=== PATIENT | female | born 1975 | race Caucasian/White ===

== ENCOUNTER 2016-04-21 11:43 | Emergency (ER) | payer OTHER ==
[~2016-04-21] VITALS: Ht 157.5 cm; Wt 111.6 kg
[~2016-04-21 11:43] MED LIST: ARIP15TA; CIPR500T4 PO; CIPR500T78 PO; CYCL10TA9 PO; DESV50TA; DICY20TA57 PO; DIPH1TAB45 PO; GBPN300C; HYDR-1231 PO; HYDR-757 PO; MELO7.5T; METF500T4 PO; METH4TAB PO; NAPR-689 PO; NAPR500T PO; NAPR550T PO; ONDA-42 PO; ONDA8TAB13 PO; ORPH100T PO; PHEN37.555 PO; PRD20T PO; PRED10TA PO; PROPANOLOL; QTP100T; RNT150T PO; RT-ALBUINH IH; SULF1TAB38 PO; TOPI50TA20; TRAM50TA2 PO; TRZ50T; VIVANCE
[2016-04-21] MEDS ORDERED: HYDR-757 PO (12:32)
[2016-04-21] MEDS ORDERED: CYCL10TA9 PO (12:32)
--- NOTE | 2016-04-21 13:23 | ED Back Pain ---
General Chief Complaint: Back Problems Stated Complaint: RIGHT LOWER BACK PAIN Nursing Triage Note: APR 08 SLIPPED AND FELL ON ICY PORCH. TODAY HAD SUDDEN SHARP UP R BACK AND DOWN R LEG WHILE TRYING TO TIE SHOE. Nursing Sepsis Screen: No Definite Risk Source of Information: Patient Exam Limitations: No Limitations History of Present Illness Time Seen by Provider: 13:21 Initial Comments To ER with right sided back pain. This has been going on since 04/08/16. At that time she stepped on her front porch which was icy and slick. Caused her to fall and land on her buttocks. She was evaluated [facility] and given hydrocodone and Flexeril which she has been taking but today she does not have any relief with these. She states that today she bent forward to tie her untied shoe and had a severe shooting pain in the right buttocks going down the right leg and up the right side of her back. No loss of bowel or bladder control. No saddle anesthesia. She does have tingling in the right leg. Location: Lumbar Spine Timing/Duration: Getting Worse, Intermittent Severity: Moderate Pain/Injury Location: Back Radiation: Buttocks Associated Symptoms: denies symptoms Allergies and Home Medications Allergies Coded Allergies: NKANo Known Allergies (Unverified Allergy, Mild, 08/31/08) No Known Drug Allergies (Verified , 01/01/08) Home Medications Cyclobenzaprine HCl 10 Mg Tablet 10 MG PO (Reported) Hydrocodone/Acetaminophen 1 Each Tablet 1 EACH PO (Reported) Constitutional: see HPINo chills, No fever EENTM: see HPI Respiratory: no symptoms reported Cardiovascular: no symptoms reported Genitourinary: no symptoms reported Musculoskeletal: see HPI back pain Skin: no symptoms reported Psychiatric/Neurological: No Symptoms Reported Past Dmmdmiz-Mmbidj-Zxntsq Hx Patient Social History Alcohol Use: Denies Use Recreational Drug Use: No Smoking Status: Never a Smoker Recent Foreign Travel: No Contact w/Someone Who Travel: No Recent Infectious Disease Expo: No Recent Hopitalizations: No Physical Abuse Screen: No Sexual Abuse: No Immunizations Up To Date Date of Influenza Vaccine: Jan 25, 2015 Seasonal Allergies Seasonal Allergies: No Surgeries HX Surgeries: Yes (knee arthoscopy) Surgeries: Appendectomy, Section, Hysterectomy, Orthopedic, Tubal Ligation Respiratory Hx Respiratory Disorders: No Cardiovascular Hx Cardiac Disorders: No Neurological Hx Neurological Disorders: No Reproductive System Hx Reproductive Disorders: Yes (X1 MISCARRIAGE) 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 Genitourinary Hx Genitourinary Disorders: No Gastrointestinal Hx Gastrointestinal Disorders: No Musculoskeletal Hx Musculoskeletal Disorders: No Endocrine Hx Endocrine Disorders: Yes Endocrine Disorders: Diabetes, Non-Insulin dep HEENT HX ENT Disorders: No Cancer Hx Cancer: No Psychosocial Hx Psychiatric Problems: Yes Behavioral Health Disorders: Anxiety Blood Transfusions Hx Blood Disorders: No Family Medical History Significant Family History: No Pertinent Family Hx Physical Exam Vital Signs Vital Sign - Last 12Hours 04/21/16 12:27 Temp 98.1 Pulse 95 Resp 18 B/P 122/75 Pulse Ox 99 Capillary Refill : Less Than 3 Seconds General Appearance: No Apparent Distress WD/WN Obese HEENT: PERRL/EOMI TMs Normal Neck: Full Range of Motion Normal Inspection Respiratory: No Accessory Muscle Use No Respiratory Distress Gastrointestinal: Non Tender Soft Extremity: Normal Capillary Refill Normal Inspection 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: Alert Oriented x3 No Motor/Sensory Deficits Skin: Normal Color Warm/Dry Progress/Results/Core Measures Results/Orders My Orders Orders-JAELYN MORALES APRN Ct Lumbar Spine Wo (04/21/16 12:52) Urine Bedside (04/21/16 12:52) Ketorolac Injection (Toradol Injection) (04/21/16 13:30) Medications Given in ED Current Medications Medications Dose Ordered Sig/Rachelle Route Start Time Stop Time Status Last Admin Dose Admin Ketorolac Tromethamine 60 mg ONCE ONCE IM 04/21/16 13:30 04/21/16 13:31 DC 04/21/16 13:54 60 MG Vital Signs/I&O Vital Sign - Last 12Hours 04/21/16 12:27 Temp 98.1 Pulse 95 Resp 18 B/P 122/75 Pulse Ox 99 Blood Pressure Mean: 91 Diagnostic Imaging Diagonstic Imaging: CT Comments NAME: FLAKO JEREZ [facility] REC#: [id number] PT STATUS: REG ER : 1975 PHYSICIAN: JAELYN MORALES APRN ADMIT DATE: 04/21/16/ER Draft Date of Exam:04/21/16 CT LUMBAR SPINE WO INDICATION: Slipped on icy porch, fell with resultant sharp back pain. COMPARISON: None. TECHNIQUE: Helical non contrast-enhanced images were obtained through the lumbar spine. Sagittal and coronal reformats were also reviewed. FINDINGS: Jig Borer views and reformats demonstrate normal anatomic alignment of the lumbar spine. The visualized vertebral bodies are normal in height and contour. No acute compression fractures are seen. No pars defects are seen. There is no evidence of spondylolysis or spondylolisthesis. There are no large prevertebral or paraspinal masses. Note is made of minimal calcified aortic atherosclerosis at its bifurcation. The disc heights are well maintained. There may be mild posterior disc bulges of the inferior lumbar spine. The axial images demonstrate no disc bulge, herniation, central canal or foraminal stenosis. IMPRESSION: No CT evidence of acute fracture or dislocation of the lumbar spine. Dictated on workstation # [id number] Dict: 04/21/16 1345 Trans: 04/21/16 1421 [facility] [phone] Interpreted by: ALIN DC Electronically signed by: Departure Impression Impression: Primary Impression: Acute low back pain Qualified Code: M54.41 - Lumbago with sciatica, right side Disposition: 01 HOME, SELF-CARE Condition: Stable (ERASED) Departure-Patient Inst. Decision time for Depature: 14:27 Referrals: [facility] (PCP/Family) Primary Care Physician Patient Instructions: Low Back Pain (DC) Add. Discharge Instructions: 1. Add steroids to yorr muscle relaxer and pain medication 2. Rest All discharge instructions reviewed with patient and/or family. Voiced understanding. Scripts Prednisone 20 Mg Tab40 Mg PO DAILY #8 TAB Prov:JEALYN MORALES APRN 04/21/16 JAELYN MORALES APRN Apr 21, 2016 13:23
[2016-04-21] MEDS ORDERED: KETOROLAC 60 MG/2 ML VIAL IM ONE (13:30)
--- NOTE | 2016-04-21 14:22 | Diagnostic Imaging Report ---
INDICATION: Slipped on icy porch, fell with resultant sharp back pain. COMPARISON: None. TECHNIQUE: Helical non contrast-enhanced images were obtained through the lumbar spine. Sagittal and coronal reformats were also reviewed. FINDINGS: Uke Driver views and reformats demonstrate normal anatomic alignment of the lumbar spine. The visualized vertebral bodies are normal in height and contour. No acute compression fractures are seen. No pars defects are seen. There is no evidence of spondylolysis or spondylolisthesis. There are no large prevertebral or paraspinal masses. Note is made of minimal calcified aortic atherosclerosis at its bifurcation. The disc heights are well maintained. There may be mild posterior disc bulges of the inferior lumbar spine. The axial images demonstrate no disc bulge, herniation, central canal or foraminal stenosis. IMPRESSION: No CT evidence of acute fracture or dislocation of the lumbar spine. Dictated by: Dictated on workstation # [id number]
[2016-04-21] MEDS ORDERED: PRD20T PO (14:28)
[2016-04-21 14:50] VITALS: BP 124/81
[2016-07-28] MEDS ORDERED: HYDR-3816 PO (12:08)
[2016-07-28] MEDS ORDERED: IBUP-1773 PO (12:08)
== END 2016-04-21 14:50 | disposition home or self-care (01) ==
LOC: EDUNIT# 11:43 → ER 11:45
DX: M54.41 Lumbago with sciatica, right side (principal); E11.9 Type 2 diabetes mellitus without complications
CPT/HCPCS: 72131; 96372

== ENCOUNTER → 2016-07-21 | Outpatient (CLI) | payer OTHER ==
[~2016-07-21] MED LIST changes: +CATHETER FLUSH 10 ML SYR IV PRN; +DOXY100T2 PO; +HYDR-3816 PO; +IBUP-1773 PO; +IOHEXOL 350 MG/ML 100 ML (OMNIPAQUE 350) VIAL IV ONE; +NS 100 ML (IVPB) BAG IV ONE; +ONDA4TAB8 SL; +OXYC-197 PO
--- NOTE | 2016-07-21 15:12 | Diagnostic Imaging Report ---
PROCEDURE: CT abdomen and pelvis with contrast. TECHNIQUE: Multiple contiguous axial images were obtained through the abdomen and pelvis after administration of intravenous contrast. INDICATION: Left lower quadrant pain. 100 mL of Omnipaque 350 is administered intravenously. FINDINGS: There is a cystic mass in the left adnexa measuring 8.8 x 6.5 x 8.1 cm. This compares to 5 x 3.8 cm on 03/02/2015 exam. There appears to be predominantly cystic with minimally thickened septations in its inferior aspect. No definitive solid nodule is identified. The persistent enlargement from 03/02/2015 is suggestive of an ovarian neoplasm, favored to be benign or low-grade malignant. Gynecologic consultation and correlation with ultrasound is recommended. There is no lymphadenopathy in the pelvis. No paraaortic significantly enlarged lymph node is seen. There is no free fluid or fluid collection noted in the abdomen or pelvis. There is suggestion of prior hysterectomy. The lung bases appear clear. The liver, the gallbladder, the spleen, the pancreas and the adrenal glands appear unremarkable. The kidneys have symmetric enhancement and contrast excretion. There is no hydronephrosis. There is surgical suture in the right lower quadrant, could relate to prior appendectomy. Correlate with surgical history. There is a tiny fat-containing umbilical hernia. The osseous structures appear grossly unremarkable. 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 Dr. Villalba is called and informed of the findings at 9:30 AM, on 07/22/16. Dictated by: Dictated on workstation # [id number]
== END ==
LOC: RAD 13:36
PROVIDERS: ATTEND Surgery Pediatric Surgery
DX: R10.11 Right upper quadrant pain (principal); R10.32 Left lower quadrant pain
CPT/HCPCS: 74177

== ENCOUNTER → 2016-07-22 | Outpatient (CLI) | payer OTHER ==
[~2016-07-22] MED LIST changes: -IOHEXOL 350 MG/ML 100 ML (OMNIPAQUE 350) VIAL IV ONE; -NS 100 ML (IVPB) BAG IV ONE
--- NOTE | 2016-07-22 12:17 | Diagnostic Imaging Report ---
EXAMINATION: HIDA with EF measurements Indication: Abdominal pain TECHNIQUE: After the intravenous administration of 5.2 mCi of Tc 99m Choletec, imaging over the abdomen was obtained. This was followed by administration of Ensure orally to stimulate intrinsic CCK secretion, followed by continued imaging with ejection fraction measured. FINDINGS: There is homogeneous uptake in the liver with prompt bile duct and gallbladder filling seen. Bowel activity is seen at 60 minutes. Based on further imaging and gallbladder area of interest activity measurements after the administration of Ensure, the gallbladder ejection fraction is estimated at 56%. IMPRESSION: 1. Normal hepatobiliary uptake and Gallbladder filling. 2. The gallbladder ejection fraction is at the lower limits of normal. Dictated by: Dictated on workstation # [id number]
== END ==
LOC: CARD 08:52
PROVIDERS: ATTEND Surgery Pediatric Surgery
DX: R10.31 Right lower quadrant pain (principal); R10.32 Left lower quadrant pain
CPT/HCPCS: 78227

== ENCOUNTER 2016-07-24 13:53 | Emergency (ER) | payer OTHER ==
[~2016-07-24] VITALS: Ht 170.2 cm; Wt 113.4 kg
[~2016-07-24 13:53] MED LIST changes: -CATHETER FLUSH 10 ML SYR IV PRN; -DOXY100T2 PO; -HYDR-3816 PO; -IBUP-1773 PO; -ONDA4TAB8 SL; -OXYC-197 PO
--- NOTE | 2016-07-24 14:58 | ED Abdominal Pain ---
General Chief Complaint: Back Problems Stated Complaint: GALBLADDER/BACK PAIN Nursing Triage Note: Pt. advised she had a hida scan and a ct scan done earlier this week secondary to abdominal and flank pain. Sepsis Screen: No Definite Risk Source of Information: Patient, Old Records Exam Limitations: No Limitations History of Present Illness Time Seen By Provider: 14:30 Initial Comments This 40-year-old woman presents to the emergency room with complaints of worsening abdominal pain with associated nausea and some diarrhea. She vomited a couple days ago and is still nauseated now. She is presently under workup for a complex left ovarian cyst and right upper quadrant pain. She has had a recent imaging including a hepatobiliary scan and a CT of the abdomen and pelvis. The hepatobiliary scan was normal but ejection fraction had decreased from prior. She has seen Dr. Villalba who has also referred her to Dr. VENTURA. She has an appointment with Dr. VENTURA on Monday. It is her understanding that she needs the cystic mass removed for further evaluation. She communicates that a possible concurrent cholecystectomy is being considered. She reports that her pain has been worsening especially in the right upper quadrant and radiating around to the right back. She denies any fever. Vital signs are stable. Chart has been reviewed including the reports from prior imaging going back to 2014. Allergies and Home Medications Allergies Coded Allergies: NKANo Known Allergies (Unverified Allergy, Mild, 07/24/16) No Known Drug Allergies (Verified , 01/01/08) Home Medications Cyclobenzaprine HCl 10 Mg Tablet, 10 MG PO, (Reported) Hydrocodone/Acetaminophen 1 Each Tablet, 1 EACH PO, (Reported) Ondansetron 4 Mg Tab.rapdis, 4 MG SL Q4H PRN for NAUSEA/VOMITING-1ST LINE, #10 Ref 1 Prescribed by: NINO SUMNER on 07/24/16 1748 Oxycodone HCl/Acetaminophen 1 Each Tablet, 1 EACH PO Q4H PRN for PAIN-MILD TO MODERATE, #20 Prescribed by: NINO SUMNER on 07/24/16 1748 Prednisone 20 Mg Tab, 40 MG PO DAILY, #8 Prescribed by: JAELYN MORALES on 04/21/16 1428 Review of Systems Constitutional: no symptoms reported EENTM: No Symptoms Reported Respiratory: No Symptoms Reported Cardiovascular: No Symptoms Reported Gastrointestinal: See HPI Genitourinary: No Symptoms Reported Musculoskeletal: no symptoms reported Skin: no symptoms reported Psychiatric/Neurological: No Symptoms Reported Endocrine: No Symptoms Reported Hematologic/Lymphatic: No Symptoms Reported Past Cdiwqda-Fghlct-Qertem Hx Patient Social History Alcohol Use: Denies Use Recreational Drug Use: No Smoking Status: Never a Smoker Recent Foreign Travel: No Contact w/Someone Who Travel: No Recent Infectious Disease Expo: No Recent Hopitalizations: No Immunizations Up To Date Date of Influenza Vaccine: Jan 25, 2015 Seasonal Allergies Seasonal Allergies: No Surgeries HX Surgeries: Yes (knee arthoscopy) Surgeries: Appendectomy, Section, Hysterectomy (sparing the left ovary ), Orthopedic, Tubal Ligation Respiratory Hx Respiratory Disorders: No Cardiovascular Hx Cardiac Disorders: No Neurological Hx Neurological Disorders: No Reproductive System Hx Reproductive Disorders: Yes (X1 MISCARRIAGE, 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 mass) 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 Genitourinary Hx Genitourinary Disorders: No Gastrointestinal Hx Gastrointestinal Disorders: No Musculoskeletal Hx Musculoskeletal Disorders: No Endocrine Hx Endocrine Disorders: Yes Endocrine Disorders: Diabetes, Non-Insulin dep HEENT HX ENT Disorders: No Cancer Hx Cancer: No Psychosocial Hx Psychiatric Problems: Yes Behavioral Health Disorders: Anxiety Blood Transfusions Hx Blood Disorders: No Family Medical History Significant Family History: No Pertinent Family Hx Physical Exam Vital Signs VS - Last 72 Hours, by Label 07/24/16 07/24/16 14:18 17:54 Temp 99.0 Pulse 86 75 Resp 14 14 B/P (MAP) 104/64 Pulse Ox 98 98 O2 Delivery Room Air Capillary Refill : Less Than 3 Seconds General Appearance: WD/WN, no apparent distress HEENT: PERRL/EOMI, normal ENT inspection, pharynx normal Neck: normal inspection Respiratory: lungs clear, normal breath sounds, no respiratory distress, no accessory muscle use Cardiovascular: regular rate, rhythm, no edema, no murmur Gastrointestinal: normal bowel sounds, soft, no organomegaly, tenderness ( right upper quadrant moderate tenderness, left lower quadrant mild tenderness) Extremities: normal inspection, no pedal edema 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, no motor/sensory deficits, alert, normal mood/affect, oriented x 3 Skin: normal color, warm/dry Progress/Results/Core Measures Results/Orders Lab Results Laboratory Tests Test 07/24/16 14:10 07/24/16 15:27 Range/Units White Blood Count 8.6 4.3-11.0 10^3/uL Red Blood Count 5.10 4.35-5.85 10^6/uL Hemoglobin 14.0 11.5-16.0 G/DL Hematocrit 42 35-52 % Mean Corpuscular Volume 83 80-99 FL Mean Corpuscular Hemoglobin 28 25-34 PG Mean Corpuscular Hemoglobin Concent 33 32-36 G/DL Red Cell Distribution Width 14.3 10.0-14.5 % Platelet Count 328 130-400 10^3/uL Mean Platelet Volume 9.9 7.4-10.4 FL Neutrophils (%) (Auto) 59 42-75 % Lymphocytes (%) (Auto) 30 12-44 % Monocytes (%) (Auto) 6 0-12 % Eosinophils (%) (Auto) 4 0-10 % Basophils (%) (Auto) 1 0-10 % Neutrophils # (Auto) 5.1 1.8-7.8 X 10^3 Lymphocytes # (Auto) 2.5 1.0-4.0 X 10^3 Monocytes # (Auto) 0.5 0.0-1.0 X 10^3 Eosinophils # (Auto) 0.4 H 0.0-0.3 10^3/uL Basophils # (Auto) 0.1 0.0-0.1 10^3/uL Prothrombin Time 13.3 12.2-14.7 SEC INR Comment 1.0 0.8-1.4 Activated Partial Thromboplast Time 29 24-35 SEC Sodium Level 140 135-145 MMOL/L Potassium Level 3.4 L 3.6-5.0 MMOL/L Chloride Level 106 98-107 MMOL/L Carbon Dioxide Level 24 21-32 MMOL/L Anion Gap 10 5-14 MMOL/L Blood Urea Nitrogen 10 7-18 MG/DL Creatinine 0.81 0.60-1.30 MG/DL Estimat Glomerular Filtration Rate > 60 BUN/Creatinine Ratio 12 Glucose Level 88 70-105 MG/DL Calcium Level 9.2 8.5-10.1 MG/DL Total Bilirubin 0.4 0.1-1.0 MG/DL Aspartate Amino Transf (AST/SGOT) 18 5-34 U/L Alanine Aminotransferase (ALT/SGPT) 13 0-55 U/L Alkaline Phosphatase 57 40-136 U/L Total Protein 8.2 6.4-8.2 G/DL Albumin 4.3 3.2-4.5 G/DL Lipase 44 8-78 U/L Serum Test, Qualitative NEGATIVE NEGATIVE Urine Color YELLOW Urine Clarity CLEAR Urine pH 5 5-9 Urine Specific [place] 1.025 H 1.016-1.022 Urine Protein NEGATIVE NEGATIVE Urine Glucose (UA) NEGATIVE NEGATIVE Urine Ketones NEGATIVE NEGATIVE Urine Nitrite NEGATIVE NEGATIVE Urine Bilirubin NEGATIVE NEGATIVE Urine Urobilinogen NORMAL NORMAL MG/DL Urine Leukocyte Esterase NEGATIVE NEGATIVE Urine RBC (Auto) NEGATIVE NEGATIVE Urine RBC NONE /HPF Urine WBC 2-5 /HPF Urine Squamous Epithelial Cells 0-2 /HPF Urine Crystals PRESENT H /LPF Urine Bacteria FEW H /HPF Urine Casts NONE /LPF Urine Hyaline Casts 0-2 H /LPF Urine Mucus MODERATE H /LPF Urine Culture Indicated YES My Orders Orders - NINO WINKLER MD Saline Lock/Iv-Start (07/24/16 14:53) Cbc With Automated Diff (07/24/16 14:53) Comprehensive Metabolic Panel (07/24/16 14:53) Hcg,Qualitative Serum (07/24/16 14:53) Lipase (07/24/16 14:53) Ua Culture If Indicated (07/24/16 14:53) Chest Pa/Lat (2 View) (07/24/16 14:53) Abdomen, Flat & Upright/Decub (07/24/16 14:53) Us Gallbladder [id number] (07/24/16 14:53) Fentanyl Injection (Sublimaze Injection (07/24/16 15:00) Ondansetron Injection (Zofran Injectio (07/24/16 15:00) Protime With Inr (07/24/16 14:59) Partial Thromboplastin Time (07/24/16 14:59) Urine Culture (07/24/16 15:27) Us Non Ob Pelvis Comp/Transvag (07/24/16 14:53) Ketorolac Injection (Toradol Injection) (07/24/16 17:00) Oxycodone/Apap 5/325mg Tablet (Percocet (07/24/16 17:45) Rx-Oxycodone/Apap 5-325 Mg (Rx-Percocet (07/24/16 17:45) Rx-Ondansetron Po (Rx-Zofran Po) (07/24/16 17:43) Medications Given in ED Current Medications Medications Dose Ordered Sig/Rachelle Route Start Time Stop Time Status Last Admin Dose Admin Fentanyl Citrate 75 mcg ONCE ONCE IVP 07/24/16 15:00 07/24/16 15:01 DC 07/24/16 15:19 75 MCG Ketorolac Tromethamine 30 mg ONCE ONCE IVP 07/24/16 17:00 07/24/16 17:01 DC 07/24/16 17:10 30 MG Ondansetron HCl 4 mg ONCE ONCE IVP 07/24/16 15:00 07/24/16 15:01 DC 07/24/16 15:18 4 MG Oxycodone/ Acetaminophen 1 ea Q4H PRN PO 07/24/16 17:45 07/24/16 18:01 DC 07/24/16 17:56 1 EA Oxycodone/ Acetaminophen 1 tab ONCE ONCE PO 07/24/16 17:45 07/24/16 17:46 DC 07/24/16 17:53 1 TAB Vital Signs/I&O Vital Sign - Last 12Hours 07/24/16 07/24/16 14:18 17:54 Temp 99.0 Pulse 86 75 Resp 14 14 B/P (MAP) 104/64 Pulse Ox 98 98 O2 Delivery Room Air Blood Pressure Mean: 77 Progress Note #1: Progress Note Patient was treated with fentanyl and Zofran. Further evaluation with labs and x-ray was pursued. X-ray of the chest was included as her pain is around the costal margin and a little worse with inspiration. Progress Note #2: Progress Note X-rays showed no acute pathology. Labs were relatively unremarkable. Patient did require repeat dosing of pain medication and nausea medication. Toradol seemed to help more than fentanyl. Case was reviewed with Dr. VENTURA who confirms patient is to be seen on Monday and stresses the importance of keeping that appointment. Patient was advised of this importance. A take-home pack of Percocet and Zofran was dispensed. A dose of Percocet was given just prior to dismissal. Diagnostic Imaging Diagonstic Imaging: Xray Plain Films/CT/US/NM/MRI: chest Comments Chest x-ray viewed by me and report reviewed. See report below: NAME: FLAKO JEREZ [facility] REC#: [id number] PT STATUS: REG ER : 1975 PHYSICIAN: NINO WINKLER MD ADMIT DATE: 07/24/16/ER Draft Date of Exam:07/24/16 CHEST PA/LAT (2 VIEW) INDICATION: Abdomen pain with nausea and vomiting. Comparison with 03/08/2016. FINDINGS: Examination of the chest in the PA and lateral projections fails to reveal evidence of active parenchymal pathology or pleural effusion. The cardiac silhouette is normal. IMPRESSION: 1. Negative chest. 2. No changes since previous exam. Dictated on workstation # [id number] Dict: 07/24/16 1511 Trans: 07/24/16 1514 LAURIE [id number] Interpreted by: MARYLU SERRANO MD Diagonstic Imaging: Xray Plain Films/CT/US/NM/MRI: abdomen, pelvis Comments Abdomen and pelvis x-rays viewed by me and report reviewed. See report below: NAME: FLAKO JEREZ [facility] REC#: [id number] PT STATUS: REG ER : 1975 PHYSICIAN: NINO WINKLER MD ADMIT DATE: 07/24/16/ER Draft Date of Exam:07/24/16 ABDOMEN, FLAT UPRIGHT/DECUB INDICATION: Left-sided abdominal pain. FINDINGS: Lung bases are clear. No free air under the diaphragm. Scattered gas throughout the small bowel and colon with some stool in the colon in a normal fashion with no evidence of constipation or obstruction. Surgical clips noted in the pelvis. No pathologic calcification or organomegaly. IMPRESSION: Normal abdomen series. Dictated on workstation # [id number] Dict: 07/24/16 1511 Trans: 07/24/16 1515 LAURIE [id number] Interpreted by: MARYLU SERRANO MD Departure Impression Impression: Primary Impression: Complex ovarian cyst Additional Impressions: Right upper quadrant pain Nausea and vomiting Qualified Codes: R11.2 - Nausea with vomiting, unspecified Disposition: 01 HOME, SELF-CARE Condition: Improved Departure-Patient Inst. Decision time for Depature: 17:44 Referrals: [facility] (PCP) Primary Care Physician SARAHI ERVIN APRN (Family) Primary Care Physician Patient Instructions: Acute Abdomen (Belly Pain) Add. Discharge Instructions: You may take Percocet every 4 hours as prescribed. You may add ibuprofen up to 800 mg every 8 hours as needed for additional pain relief, but stop ibuprofen after Monday in anticipation of surgery later this week. Dissolve Zofran ( ondansetron) under the tongue every 4 hours as needed for nausea and vomiting. Be sure to keep your appointment with Dr. VENTURA on Monday. You may be able to have surgery on if still in pain at your Monday appointment. Return to emergency room if symptoms worsen, especially if you develop fevers greater than 100. Consume primarily a clear liquid diet and a diet low in fats and oils. All discharge instructions reviewed with patient and/or family. Voiced understanding. Scripts Ondansetron (Zofran Odt) 4 Mg Tab.rapdis 4 MG SL Q4H Y for NAUSEA/VOMITING-1ST LINE, #10 TAB 1 Refill Prov: NINO WINKLER MD 07/24/16 Oxycodone HCl/Acetaminophen (Percocet 5-325 mg Tablet) 1 Each Tablet 1 EACH PO Q4H Y for PAIN-MILD TO MODERATE, #20 TAB Prov: NINO WINKLER MD 07/24/16 Copy Copies To 1: WATSON VILLALBA MD Copies To 2: HERSON VENTURA DO; DAVY LINTON MD, JOSHUA T MD Jul 24, 2016 14:58
[2016-07-24] MEDS ORDERED: ONDANSETRON 4 MG/2 ML (SDV) Z0FRAN IVP ONE (15:00)
[2016-07-24] MEDS ORDERED: fentaNYL INJECTION 100 MCG/2 ML AMP IVP ONE (15:00)
[2016-07-24 15:07] LABS: BASOPHILS # (AUTO) 0.1 10^3/uL (0.0-0.1); BASOPHILS % (AUTO) 1 % (0-10); EOSINOPHILS # (AUTO) 0.4 10^3/uL (0.0-0.3); EOSINOPHILS % (AUTO) 4 % (0-10); LYMPHOCYTES # (AUTO) 2.5 X 10^3 (1.0-4.0); LYMPHOCYTES % (AUTO) 30 % (12-44); MEAN CORPUSCULAR HEMOGLOBIN 28 PG (25-34); MEAN CORPUSCULAR HGB CONC 33 G/DL (32-36); MEAN CORPUSCULAR VOLUME 83 FL (80-99); MEAN PLATELET VOLUME 9.9 FL (7.4-10.4); MONOCYTES # (AUTO) 0.5 X 10^3 (0.0-1.0); MONOCYTES % (AUTO) 6 % (0-12); NEUTROPHILS # (AUTO) 5.1 X 10^3 (1.8-7.8); NEUTROPHILS % (AUTO) 59 % (42-75); PLATELET COUNT 328 10^3/uL (130-400); RED CELL DISTRIBUTION WIDTH 14.3 % (10.0-14.5); WHITE BLOOD COUNT 8.6 10^3/uL (4.3-11.0)
[2016-07-24 15:10] LABS: PROTHROMBIN TIME PATIENT 13.3 SEC (12.2-14.7)
--- NOTE | 2016-07-24 15:14 | Diagnostic Imaging Report ---
INDICATION: Abdomen pain with nausea and vomiting. Comparison with 03/08/2016. FINDINGS: Examination of the chest in the PA and lateral projections fails to reveal evidence of active parenchymal pathology or pleural effusion. The cardiac silhouette is normal. IMPRESSION: 1. Negative chest. 2. No changes since previous exam. Dictated by: Dictated on workstation # [id number]
--- NOTE | 2016-07-24 15:15 | Diagnostic Imaging Report ---
INDICATION: Left-sided abdominal pain. FINDINGS: Lung bases are clear. No free air under the diaphragm. Scattered gas throughout the small bowel and colon with some stool in the colon in a normal fashion with no evidence of constipation or obstruction. Surgical clips noted in the pelvis. No pathologic calcification or organomegaly. IMPRESSION: Normal abdomen series. Dictated by: Dictated on workstation # [id number]
[2016-07-24 15:19] LABS: ALANINE AMINOTRANSFERASE 13 U/L (0-55); ALBUMIN 4.3 G/DL (3.2-4.5); ANION GAP 10 MMOL/L (5-14); ASPARTATE AMINO TRANSFERASE 18 U/L (5-34); BILIRUBIN,TOTAL 0.4 MG/DL (0.1-1.0); BLOOD UREA NITROGEN 10 MG/DL (7-18); BUN/CREATININE RATIO 12; CALCIUM 9.2 MG/DL (8.5-10.1); CARBON DIOXIDE 24 MMOL/L (21-32); CHLORIDE 106 MMOL/L (98-107); CREATININE SERUM 0.81 MG/DL (0.60-1.30); GFR ESTIMATED > 60; GLUCOSE 88 MG/DL (70-105); LIPASE 44 U/L (8-78); POTASSIUM 3.4 MMOL/L (3.6-5.0); SODIUM 140 MMOL/L (135-145); TOTAL PROTEIN 8.2 G/DL (6.4-8.2)
[2016-07-24 15:35] LABS: BILIRUBIN,URINE NEGATIVE (NEGATIVE); KETONES,URINE NEGATIVE (NEGATIVE); LEUKOCYTE ESTERASE ,URINE NEGATIVE (NEGATIVE); NITRITE,URINE NEGATIVE (NEGATIVE); PH,URINE 5 (5-9); PROTEIN,URINE NEGATIVE (NEGATIVE); UROBILINOGEN,URINE NORMAL (NORMAL)
[2016-07-24 16:04] LABS: HYALINE CASTS, URINE 0-2 /LPF; SQUAMOUS EPITHELIAL CELL,UR 0-2 /HPF
--- NOTE | 2016-07-24 16:21 | Diagnostic Imaging Report ---
PROCEDURE: US gallbladder. TECHNIQUE: Multiple real-time grayscale images were obtained over the right upper quadrant in various projections. INDICATION: Abdominal pain. COMPARISON: None. FINDINGS: Liver appears unremarkable. The common bile duct is not well seen, however, no gross biliary dilatation is seen. The common bile duct appears to measure about 5 mm. The gallbladder appears normal. The pancreas is not well visualized. Right kidney measures 12 cm in length and appears normal. There is no ascites or sonographic Main sign. IMPRESSION: No acute abnormality is demonstrated. Limited visualization of the common bile duct and pancreas. Dictated by: Dictated on workstation # [id number]
--- NOTE | 2016-07-24 16:25 | Diagnostic Imaging Report ---
INDICATION: Abdominal pelvic pain. History of hysterectomy and right oophorectomy. PROCEDURE: Grayscale as well as spectral Doppler ultrasound of the pelvis was performed both transabdominally and endovaginally. FINDINGS: The uterus and right ovary appear absent. There is a 6.0 cm x 7.7 cm x 8.0 cm complex cystic mass in the left adnexa with diffuse low level internal echoes and mildly thickened septations present. There is no significant internal vascularity. This may represent a benign process such as a complex hemorrhagic cyst although tubo-ovarian abscess or less likely cystic neoplasm could also potentially have this appearance. No definite normal left ovarian tissue is demonstrated. There is no free fluid. IMPRESSION: There is an 8 cm complex cystic mass in the left adnexa, as described above. No discrete normal left ovarian tissue is seen. Considerations would include a benign cystic lesion of the left ovary such as a hemorrhagic cyst, tubo-ovarian abscess/infection or less likely but not entirely excluded cystic neoplasm. At minimum, short-term followup study is suggested. Correlate clinically. Dictated by: Dictated on workstation # [id number]
[2016-07-24] MEDS ORDERED: KETOROLAC 30 MG/ML VIAL IVP ONE (17:00)
[2016-07-24] MEDS ORDERED: RX-ONDANSETRON 4 MG ODT (ZOFRAN) PPK #4 SL STA (17:43)
[2016-07-24] MEDS ORDERED: oxyCODONE/APAP 5/325MG (PERCOCET 5) TABLET PO ONE (17:45)
[2016-07-24] MEDS ORDERED: OXYC-197 PO (17:48)
[2016-07-24] MEDS ORDERED: ONDA4TAB8 SL (17:48)
[2016-07-24] MEDS: RX-OXYCODONE/APAP 5-325 MG #4 TAB PK PO PRN ×2 (17:50→17:56)
[2016-07-24 17:54] VITALS: BP 128/95
[2016-07-28] MEDS ORDERED: IBUP-1773 PO (12:08)
[2016-07-28] MEDS ORDERED: HYDR-3816 PO (12:08)
== END 2016-07-24 18:01 | disposition home or self-care (01) ==
LOC: EDUNIT# 13:53 → ER 13:54
DX: R10.11 Right upper quadrant pain (principal); R11.2 Nausea with vomiting, unspecified; N83.292 Other ovarian cyst, left side; E11.9 Type 2 diabetes mellitus without complications
CPT/HCPCS: 36415; 71020; 74020; 76705; 76830; 76856; 80053; 81000; 83690; 84703; 85025; 85610; 85730; 87088; 96374; 96375

== ENCOUNTER 2016-07-28 09:16 | Day surgery (SDC) | payer OTHER ==
[~2016-07-28] VITALS: Ht 157.5 cm; Wt 108.4 kg
[~2016-07-28 09:16] MED LIST changes: +ONDA4TAB8 SL; +OXYC-197 PO
[2016-07-28] MEDS ORDERED: ceFAZolin 1 GM/NS 50 ML IVPB IV ONE ×2 (09:45)
[2016-07-28] MEDS ORDERED: fentaNYL INJECTION 100 MCG/2 ML AMP IV ONE (09:45)
[2016-07-28] MEDS: LACTATED RINGERS 1,000 ML IV PRN ×2 (10:07→11:16)
[2016-07-28] MEDS ORDERED: ONDANSETRON 4 MG/2 ML (SDV) Z0FRAN ONE ×2 (10:23→13:12)
[2016-07-28] MEDS ORDERED: fentaNYL INJECTION 100 MCG/2 ML AMP ONE ×2 (10:23→13:12)
[2016-07-28] MEDS ORDERED: LIDOCAINE PF 2% 10 ML (XYLOCAINE) AMP ONE (10:23)
[2016-07-28] MEDS ORDERED: DEXAMETHASONE PF 10 MG/ML (DECADRON) VIAL ONE (10:23)
[2016-07-28] MEDS ORDERED: LACTATED RINGERS 1,000 ML IV ONE ×2 (10:23→12:26)
[2016-07-28] MEDS ORDERED: proPOfol 200 MG/20 ML (DIPRIVAN) VIAL IV ONE (10:23)
[2016-07-28] MEDS ORDERED: SEVOFLURANE (ULTANE) 15 ML INHAL SOLN ONE ×6 (10:23→12:28)
[2016-07-28] MEDS ORDERED: MIDAZOLAM 2 MG/2 ML (VERSED) VIAL ONE (10:24)
[2016-07-28 10:33] LABS: BASOPHILS % (AUTO) 0 % (0-10); EOSINOPHILS # (AUTO) 0.2 10^3/uL (0.0-0.3); EOSINOPHILS % (AUTO) 3 % (0-10); LYMPHOCYTES # (AUTO) 2.2 X 10^3 (1.0-4.0); LYMPHOCYTES % (AUTO) 31 % (12-44); MEAN CORPUSCULAR HEMOGLOBIN 27 PG (25-34); MEAN CORPUSCULAR HGB CONC 33 G/DL (32-36); MEAN CORPUSCULAR VOLUME 82 FL (80-99); MEAN PLATELET VOLUME 9.5 FL (7.4-10.4); MONOCYTES # (AUTO) 0.4 X 10^3 (0.0-1.0); MONOCYTES % (AUTO) 6 % (0-12); NEUTROPHILS # (AUTO) 4.2 X 10^3 (1.8-7.8); NEUTROPHILS % (AUTO) 59 % (42-75); PLATELET COUNT 285 10^3/uL (130-400); RED BLOOD COUNT 4.67 10^6/uL (4.35-5.85); RED CELL DISTRIBUTION WIDTH 14.4 % (10.0-14.5); WHITE BLOOD COUNT 7.1 10^3/uL (4.3-11.0)
[2016-07-28] MEDS ORDERED: BUPIVACAINE 0.25% 30 ML (SENSORCAINE) VIAL ONE (10:42)
--- NOTE | 2016-07-28 10:47 | Progress Note-Pre Operative ---
Pre-Operative Progress Note H&P Reviewed The H&P was reviewed, patient examined and no changes noted. Date H&P Reviewed: July 28, 2016 Time H&P Reviewed: 10:45 Pre-Operative Diagnosis: symptomatic biliary dyskinesia WATSON PAINTER MD July 28, 2016 10:47 am
[2016-07-28 10:53] VITALS: BP 122/62
[2016-07-28] MEDS ORDERED: ROCURONIUM 50 MG/5 ML (ZEMURON) VIAL IV ONE ×2 (12:00)
[2016-07-28] MEDS ORDERED: D5 LR IV SOLUTION 1,000 ML IV SCH (12:03)
--- NOTE | 2016-07-28 12:06 | Discharge Inst-Women's Service ---
Discharge Inst-Women's Serv Depart Medication/Instructions New, Converted or Re-Newed RX: RX on Chart Consults/Follow Up Additional Follow Up: Yes Activity Activity: Activity as Tolerated Driving Instructions: No Driving for 1 Week NO SMOKING: NO SMOKING Nothing Inside Vagina: No Douching, No [place], No Tampons Diet Discharge Diet: No Restrictions Symptoms to Report to : Bleeding Excessive, Pain Increased, Fever Over 101 Degrees F, Vaginal Bleeding Increase, Questions/Concerns For Any Problems or Questions: Contact Your Physician, Go to Emergency Room Skin/Wound Care Infection Signs and Symptoms: Increased Redness, Foul Odor of Wound, Increased Drainage, Skin Itchy or Has a Rash, Increased Swelling, Temperature Above 101 F Operative Area Clean and Dry: Keep Incision Clean/Dry Stitches/[place]/Dermabond: Dermabond, Care of Stitches Bathing Instructions: HERSON Flores DO July 28, 2016 12:06
[2016-07-28] MEDS ORDERED: HYDR-3816 PO (12:08)
[2016-07-28] MEDS ORDERED: IBUP-1773 PO (12:08)
[2016-07-28] MEDS ORDERED: ONDANSETRON 4 MG/2 ML (SDV) Z0FRAN IVP PRN ×2 (12:15→12:45)
[2016-07-28] MEDS ORDERED: KETOROLAC 30 MG/ML VIAL IVP ONE (12:15)
--- NOTE | 2016-07-28 12:31 | Progress Note-Post Operative ---
Post-Operative Progess Note Surgeon (s)/Boiler Inspector (s) Surgeon WATSON PAINTER MD Boiler Inspector: same Pre-Operative Diagnosis symptomatic biliary dyskinesia Post-Operative Diagnosis same Post-Op Procedure Note Date of Procedure: July 28, 2016 Name of Procedure Performed: laparoscopic cholecystectomy Description of the Procedure: laparoscopic cholecystectomy Findings of the Procedure chronic gallbladder inflammation Anesthesia Type GET Estimated blood loss (mL): minimal Specimen(s) collected/removed gallbladder WATSON PAINTER MD July 28, 2016 12:31 pm
[2016-07-28] MEDS ORDERED: GLYCOPYRROLATE 0.2 MG/ML (ROBINUL) 2 ML VIAL ONE (12:33)
[2016-07-28] MEDS ORDERED: NEOSTIGMINE (BLOXIVERZ ) 1 MG/1ML 10 ML VIAL ONE (12:33)
[2016-07-28] MEDS ORDERED: fentaNYL INJECTION 100 MCG/2 ML AMP IVP PRN (12:45)
[2016-07-28] MEDS ORDERED: morphine INJ 10 MG/ML 1ML (SYR OR VIAL) ONE (12:53)
[2016-07-28] MEDS ORDERED: KETOROLAC 30 MG/ML VIAL ONE (12:53)
[2016-07-28] MEDS: morphine INJ 10 MG/ML 1ML (SYR OR VIAL) IVP PRN ×2 (13:05→13:13)
[2016-07-28 13:40] VITALS: BP 120/60
[2016-07-28] MEDS: HYDROcodone/APAP 7.5 MG/325 MG (LORTAB, LORCET PLUS) TABLET PO PRN ×2 (13:48→15:06)
[2016-07-28 14:10] VITALS: BP 107/67
[2016-07-28 14:40] VITALS: BP 106/70
[2016-07-28 16:00] VITALS: BP 106/70
[2016-07-28] MEDS ORDERED: IBUPROFEN 600 MG (MOTRIN) TAB PO PRN (18:00)
--- NOTE | 2016-07-29 04:49 | OPERATIVE REPORT ---
DATE OF SERVICE: PREOPERATIVE DIAGNOSIS: Left adnexal cystic mass. POSTOPERATIVE DIAGNOSIS: Left adnexal cystic mass. PROCEDURE: 1. Diagnostic laparoscopy with removal of the left tube and ovary and mass. 2. Laparoscopic cholecystectomy. SURGEON: Dr. Aris Ventura. CO-SURGEON: Dr. Tex Villalba. ANESTHESIA: General endotracheal. ESTIMATED BLOOD LOSS: Minimal. URINE OUTPUT: Recorded on Dr. Villalba's note. FLUIDS: Recorded on Dr. Villalba's note. PATHOLOGY SENT (from my portion of the procedure): Includes the left-sided ovarian cystic mass and left ovary. FINDINGS: A 6 to 8 cm left ovarian cystic mass, grossly normal-appearing, healing pelvis otherwise with absence of uterus, bilateral fallopian tubes and right ovary. INDICATIONS FOR PROCEDURE: This is 40-year-old female was made an urgent appointment in my office yesterday for severe left lower quadrant pain in the pelvis. She had a CT performed over the weekend in the emergency department which revealed a 6 x 8 cm cystic-appearing structure in the pelvis. She also had recently seen Dr. Villalba, who wanted this evaluated first before proceeding with cholecystectomy. I discussed with the patient the finding due to the acute nature of her pain. I told her in an ideal circumstance I would like to order tumor markers, however, at this point, due to her pain, we would proceed urgently, which would be the following day with the removal of this pelvic mass that is causing her pain. I called and coordinated the procedure with Dr. Villalba, who is available to do her gallbladder removal as well. Therefore, we would do the procedure in one combined case. My portion of the procedure goes as follows. PROCEDURE IN DETAIL: The patient was taken to the operating room after consent was obtained, where general anesthesia was found to be adequate. She was placed in the supine position and prepped and draped in normal sterile fashion. I made an infraumbilical incision using a knife and introduced a Veress needle through this incision. Intraperitoneal placement was confirmed using the saline drop test. I proceeded with insufflation using CO2 gas. An opening pressure of 5 mmHg pressure was noted. I proceeded to a maximum pressure of 15 mmHg pressure, at which point I removed the Veress needle and introduced a 12 mm blunt trocar through this incision. Once this was in place, I had the patient placed in steep Trendelenburg and made to easily visualize this pelvic cystic structure coming off the lateral left-sided pelvic sidewall. I then placed a trocar in the left lower quadrant, this was a 5 mm trocar, the incision was made with a knife and it was placed under direct visualization of a laparoscope. Once this was in place I am able to use the LigaSure 5 mm bipolar cautery to separate it from the lateral pelvic sidewall as well as to bipolar cauterize and transect the infundibulopelvic ligament. Once this was done and the mass was freed up without rupture, there is no evidence of excrescences or adhesions to the surrounding structures. I then remove the specimen through the infraumbilical trocar site, however, I had to place a trocar on the right side lateral to my infraumbilical trocar, a 5 mm trocar is placed in order to remove it and help with visualization. Once this was trocar was in place, I remove it using the Endopouch bag through the 12 mm incision, which has to be extended to approximately 3 cm to the right with removal. I bring the bag up to the skin surface where I am unable to remove this large cystic structure through the small incision, therefore I poke a hole in it using a knife and suction out the contents using the laparoscope suction, which is then copiously irrigated. After this is able to be removed, I dino the fascia with a 0 Vicryl suture in the midline for help with closure of the fascia for Dr. Villalba's portion of the procedure. I then inspect the pelvis and copiously irrigate the pelvis. There is no active bleeding noted from any dissection planes, after which I place the patient in reverse Trendelenburg and set up the patient for her gallbladder removal and Dr. Villalba takes over the case at that point. Lap and sponge count was correct at the time of my leaving the room. The patient tolerated the procedure well as far as my encounter with the patient. Please see Dr. Villalba's note for the remainder of the procedure as well as the recovery process. Job ID: [id number] DocumentID: [id number] Dictated Date: 07/28/2016 12:12:50 Process Equipment Operator Date: 07/29/2016 04:48:49 Dictated By: ARIS VENTURA DO
--- NOTE | 2016-07-29 05:24 | OPERATIVE REPORT ---
DATE OF SERVICE: 07/28/2016 PREOPERATIVE DIAGNOSIS: Symptomatic biliary dyskinesia and symptomatic left adnexal mass. POSTOPERATIVE DIAGNOSIS: Symptomatic biliary dyskinesia and symptomatic left adnexal mass. PROCEDURE: Laparoscopic cholecystectomy done by us done in conjunction with a left salpingo-oophorectomy done by Dr. Barrios. MYSQL DATABASE DEVELOPER: Andrey Lang APRN. ANESTHESIA: General endotracheal. ESTIMATED BLOOD LOSS: Minimal. FINDINGS: Chronic gallbladder wall inflammation. DISPOSITION: The patient first underwent the left oophorectomy by Dr. Barrios. We were able to use two previous ports and added one 5 mm left upper abdominal quadrant port. A laparoscopic cholecystectomy was then performed. Patient tolerated the procedure well. INDICATIONS: The patient is a 41-year-old female who we had initially seen for pain in two different regions. She had reported pain in the right upper abdominal quadrant after meals and this had been chronic for several months and worsening over time. This was consistent with a biliary dyskinesia. She underwent an ultrasound which did not show any gallstones; however, she then underwent a HIDA scan and she did have significant reproduction of symptoms upon administration of a Kinevac analogue consistent with symptomatic biliary dyskinesia. She also had pain in the left lower abdominal quadrant. We did order a CT scan, which did show a left adnexal mass which was significant in size, approximately 6 to 7 cm. She was then referred to Dr. Barrios and evaluated. It was decided to proceed with a combination surgery. Dr. Barrios first proceeded with his diagnostic laparoscopy and left oophorectomy. Using the same ports and added more in the left upper abdominal quadrant after the skin and peritoneum were anesthetized using 0.5% Marcaine with epinephrine and a transverse skin incision made using a 15 blade. The patient was then placed in reverse Trendelenburg position as well as plane right side up, left side down. There was mild gallbladder wall chronic inflammation with omental adhesions to the gallbladder. What was visualized of the liver, stomach and omentum appeared normal. There were no peritoneal implants or carcinomatosis in these regions. The omental adhesions were then taken down using blunt dissection as well as electrocautery. The hepatoduodenal ligament was then identified and opened using blunt dissection using the hook instrument as well as electrocautery. The entire critical view of safety was identified including the triangle of Calot, the cystic duct and artery going into the gallbladder as well as the liver behind the proximal gallbladder. A timeout was then taken and the cystic duct and artery were then clipped proximally, distally and cut with EndoShears. The gallbladder was then dissected off the liver bed using cautery and the hook instrument with visualization of good hemostasis. The gallbladder was removed through the 10 mm port site using an EndoCatch bag. The liver bed was then copiously irrigated and suctioned out with visualization of good hemostasis. The right subphrenic space was then irrigated and suctioned. A transfascial suture which was placed on a hemostat was placed by Dr. Barrios. This was tied, a small area of defect was identified adjacent to this, so we added 1 more interrupted 0 Vicryl suture until the entire fascia and peritoneum were closed. The abdomen was desufflated and the remaining ports removed. All skin incisions were closed using 4-0 Monocryl running subcuticular sutures. Wounds were then cleaned and covered with Dermabond. The patient tolerated the procedure well. We will start IV and oral pain medication as well as a clear liquid diet. Once she is tolerating clears and has good pain control with oral pain medications and ambulating well, we will discharge her home. We will have her follow up from our perspective in the office in approximately 2 weeks. Job ID: [id number] DocumentID: [id number] Dictated Date: 07/28/2016 12:38:26 Brick Tester Date: 07/29/2016 05:23:56 Dictated By: WATSON PAINTER MD MTDD
== END 2016-07-28 16:00 | disposition home or self-care (01) ==
LOC: SDC 09:16
PROVIDERS: ATTEND Obstetrics & Gynecology
DX: D27.1 Benign neoplasm of left ovary (principal); N83.02 Follicular cyst of left ovary; N83.12 Corpus luteum cyst of left ovary; K81.1 Chronic cholecystitis; E66.9 Obesity, unspecified; Z68.41 Body mass index [BMI] 40.0-44.9, adult
CPT/HCPCS: 36415; 85025; 86850; 86900; 86901; 87081; 88304; 88307; 94664

== ENCOUNTER 2016-07-30 18:12 | Emergency (ER) | payer OTHER ==
[~2016-07-30] VITALS: Ht 157.5 cm; Wt 108.4 kg
[~2016-07-30 18:12] MED LIST changes: +HYDR-3816 PO; +IBUP-1773 PO
[2016-07-30 18:42] LABS: BILIRUBIN,URINE NEGATIVE (NEGATIVE); KETONES,URINE NEGATIVE (NEGATIVE); LEUKOCYTE ESTERASE ,URINE NEGATIVE (NEGATIVE); NITRITE,URINE NEGATIVE (NEGATIVE); PH,URINE 7 (5-9); PROTEIN,URINE NEGATIVE (NEGATIVE); UROBILINOGEN,URINE NORMAL (NORMAL)
[2016-07-30] MEDS ORDERED: NS IV 1000 ML 1,000 ML IV ONE (19:12)
[2016-07-30] MEDS ORDERED: ONDANSETRON 4 MG/2 ML (SDV) Z0FRAN IVP ONE (19:15)
[2016-07-30] MEDS ORDERED: RT-ALBUTEROL/IPRATROPIUM 3 ML (DUONEB) VIAL INH ONE (19:15)
[2016-07-30] MEDS ORDERED: fentaNYL INJECTION 100 MCG/2 ML AMP IVP ONE ×2 (19:15→21:00)
--- NOTE | 2016-07-30 19:44 | Diagnostic Imaging Report ---
INDICATION: Recent cholecystectomy and partial hysterectomy with incisional pain, chest pain, difficulty breathing, and back pain. FINDINGS: The lung bases are clear. There is no free air. There are surgical clips in the right upper quadrant. The bowel gas pattern is nonspecific. There are no unexpected postop foreign bodies. IMPRESSION: Nonspecific bowel gas pattern Dictated by: Dictated on workstation # [id number]
--- NOTE | 2016-07-30 19:44 | Diagnostic Imaging Report ---
INDICATION: Shortness of breath and pain. PA and lateral views of the chest were obtained. Comparison is made with prior examination from 07/24/16. FINDINGS: The heart size, mediastinal configuration, and pulmonary vascularity are within normal limits. There is no pleural effusion, pneumothorax, or pneumonia. The osseous structures are unremarkable. IMPRESSION: No acute cardiopulmonary abnormality. Dictated by: Dictated on workstation # [id number]
--- NOTE | 2016-07-30 19:48 | ED General ---
General Chief Complaint: Abdominal/GI Problems Stated Complaint: POST OP/SOA Nursing Triage Note: c/o post-op pain with soa. Pt had a cholecystectomy with left ovary removed on . Nausea present. Unknown if she has had a fever. Nursing Sepsis Screen: No Definite Risk Source of Information: Patient, Old Records Exam Limitations: No Limitations History of Present Illness Time Seen by Provider: 18:30 Initial Comments This 40-year-old woman presents to the emergency room with complaints of abdominal pain, cough, chest discomfort with cough, back pain, and increasing redness inferior to the umbilicus after having surgery on July 28. She had a cholecystectomy and a left salpingo-oophorectomy with ovarian mass resection performed by Dr. Villalba and Dr. VENTURA. She denies any known fever. She reports it feels like "someone punching me in the back". She has had no bowel movement since the surgery. She has a weak cough in the exam room. She is trying not to cough because it hurts. She denies any lower extremity symptoms. Her last pain pill was taken at noon. She is avoiding her pain medications because of fear of constipation. She has no signs of sepsis on her initial evaluation. She complains of a burning sensation over the central abdomen inferior to the umbilicus where she has some redness extending beyond her umbilical incision. Pathology reports from her surgery are not yet available. She reports some nausea without vomiting. Allergies and Home Medications Allergies Coded Allergies: NKANo Known Allergies (Unverified Allergy, Mild, 07/24/16) No Known Drug Allergies (Verified , 01/01/08) Home Medications Cyclobenzaprine HCl 10 Mg Tablet, 10 MG PO, (Reported) Doxycycline Hyclate 100 Mg Tablet, 100 MG PO BID, #20 Prescribed by: NINO SUMNER on 07/30/16 2142 Hydrocodone/Acetaminophen 1 Each Tablet, 1 EA PO Q4H PRN for PAIN-MODERATE, #50 Prescribed by: HERSON VENTURA on 07/28/16 1208 Ibuprofen 600 Mg Tablet, 600 MG PO Q6HR PRN for PAIN-MILD, #80 Prescribed by: HERSON VENTURA on 07/28/16 1208 Ondansetron 4 Mg Tab.rapdis, 4 MG SL Q4H PRN for NAUSEA/VOMITING-1ST LINE, #10 Ref 1 Prescribed by: NINO SUMNER on 07/24/16 1748 Constitutional: no symptoms reported EENTM: no symptoms reported Respiratory: see HPI Cardiovascular: no symptoms reported Gastrointestinal: see HPI Genitourinary: other (pain in the abdomen with urination) Musculoskeletal: see HPI Skin: no symptoms reported Psychiatric/Neurological: No Symptoms Reported Hematologic/Lymphatic: No Symptoms Reported Immunological/Allergic: no symptoms reported Past Muovehi-Tifquy-Xncunz Hx Patient Social History Alcohol Use: Denies Use Recreational Drug Use: No Smoking Status: Never a Smoker Recent Foreign Travel: No Contact w/Someone Who Travel: No Recent Infectious Disease Expo: No Recent Hopitalizations: No Immunizations Up To Date Date of Influenza Vaccine: Jan 25, 2015 Seasonal Allergies Seasonal Allergies: No Surgeries HX Surgeries: Yes (knee arthoscopy, left salpingo-oophorectomy and resection of ovarian cystic mass) Surgeries: Appendectomy, Section, Gallbladder, Hysterectomy, Oophorectomy, Orthopedic, Tubal Ligation Respiratory Hx Respiratory Disorders: No Cardiovascular Hx Cardiac Disorders: No Neurological Hx Neurological Disorders: No Reproductive System Hx Reproductive Disorders: Yes (X1 MISCARRIAGE, 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 mass) 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 Genitourinary Hx Genitourinary Disorders: No Gastrointestinal Hx Gastrointestinal Disorders: No Musculoskeletal Hx Musculoskeletal Disorders: No Endocrine Hx Endocrine Disorders: Yes Endocrine Disorders: Diabetes, Non-Insulin dep HEENT HX ENT Disorders: No Cancer Hx Cancer: No Psychosocial Hx Psychiatric Problems: Yes Behavioral Health Disorders: Anxiety Blood Transfusions Hx Blood Disorders: No Family Medical History Significant Family History: No Pertinent Family Hx Physical Exam Vital Signs Vital Sign - Last 12Hours 07/30/16 07/30/16 18:18 22:02 Temp 98.0 Pulse 69 Resp 18 B/P (MAP) 119/77 Pulse Ox 98 Capillary Refill : Less Than 3 Seconds General Appearance: No Apparent Distress, WD/WN HEENT: PERRL/EOMI, Normal ENT Inspection, Other (oropharynx somewhat dry) Neck: Normal Inspection Respiratory: Lungs Clear, Normal Breath Sounds, No Accessory Muscle Use, No Respiratory Distress, Other (Productive cough noted) Cardiovascular: Regular Rate, Rhythm, No Edema, No Murmur Gastrointestinal: Normal Bowel Sounds, Soft, Tenderness (tenderness to palpation, especially over the inferior central abdomen. There is subtle erythema extending inferiorly several centimeters beyond the umbilical incision. This erythema is blanching and warm) Extremity: Normal Inspection, Non Tender, No Calf Tenderness, No Pedal Edema, Other (negative Pedro) 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: Alert, Oriented x3, No Motor/Sensory Deficits, Normal Mood/Affect, shelter case manager II-XII Norm as Tested Skin: Normal Color, Warm/Dry Progress/Results/Core Measures Results/Orders Lab Results My Orders Orders - NINO WINKLER MD [employer] Associate Ed (07/30/16 ) Medications Given in ED Vital Signs/I&O Blood Pressure Mean: 91 Progress Note : Progress Note Workup was relatively unremarkable. I have a little concerned about the erythema inferior to the umbilical incision. I also have a little concern about the productive cough. Doxycycline was given as empiric treatment for possible early pneumonia and/or cellulitis. Patient was treated with fentanyl, Toradol, Zofran, and IV fluids while in the emergency room. Patient was strongly encouraged to use her incentive spirometry 10 times per hour while awake. Diagnostic Imaging Diagonstic Imaging: Xray Plain Films/CT/US/NM/MRI: chest Comments Chest x-ray viewed by me and report reviewed. See report below: NAME: SOLITARIOFLAKO D [facility] REC#: [id number] PT STATUS: REG ER : 1975 PHYSICIAN: NINO WINKLER MD ADMIT DATE: 07/30/16/ER Signed Date of Exam:07/30/16 CHEST PA/LAT (2 VIEW) INDICATION: Shortness of breath and pain. PA and lateral views of the chest were obtained. Comparison is made with prior examination from 07/24/16. FINDINGS: The heart size, mediastinal configuration, and pulmonary vascularity are within normal limits. There is no pleural effusion, pneumothorax, or pneumonia. The osseous structures are unremarkable. IMPRESSION: No acute cardiopulmonary abnormality. Dictated by: Dictated on workstation # [id number] Dict: 07/30/161934 Trans: 07/30/161940 PEGGY [id number] Interpreted by: KAT SOLER Electronically signed by: KAT SOLER 07/30/161940 Diagonstic Imaging: Xray Plain Films/CT/US/NM/MRI: abdomen, pelvis Comments Abdominal x-ray viewed by me and report reviewed. See report below: NAME: FLAKO JEREZ [facility] REC#: [id number] PT STATUS: REG ER : 1975 PHYSICIAN: NINO WINKLER MD ADMIT DATE: 07/30/16/ER Signed Date of Exam:07/30/16 ABDOMEN, FLAT UPRIGHT/DECUB INDICATION: Recent cholecystectomy and partial hysterectomy with incisional pain, chest pain, difficulty breathing, and back pain. FINDINGS: The lung bases are clear. There is no free air. There are surgical clips in the right upper quadrant. The bowel gas pattern is nonspecific. There are no unexpected postop foreign bodies. IMPRESSION: Nonspecific bowel gas pattern Dictated by: Dictated on workstation # [id number] Dict: 07/30/161933 Trans: 07/30/161944 [facility] [id number] Interpreted by: KAT SOLER Electronically signed by: KAT SOLER 07/30/161944 Departure Impression Impression: Primary Impression: Postoperative pain Additional Impressions: Abdominal pain Qualified Codes: R10.9 - Unspecified abdominal pain Productive cough Disposition: HOME, SELF-CARE Condition: Improved Departure-Patient Inst. Decision time for Depature: 21:30 Referrals: [facility] (PCP) Primary Care Physician SARAHI ERVIN APRN (Family) Primary Care Physician Patient Instructions: Postoperative Pain (DC) Add. Discharge Instructions: Drink plenty of clear liquids. Use Colace and/or MiraLAX (polyethylene glycol) if you have concerns about constipation. Use ibuprofen up to 600 mg every 6 hours as needed for primary pain control. Add hydrocodone for pain not controlled by ibuprofen. Complete your antibiotic as prescribed. Use the incentive spirometer at least 10 times per hour while awake. Follow-up with your surgical team on Monday. Return to the emergency room if symptoms worsen, especially if you develop fevers greater than 100. All discharge instructions reviewed with patient and/or family. Voiced understanding. Scripts Doxycycline Hyclate (Doxycycline Hyclate) 100 Mg Tablet 100 MG PO BID, #20 TAB Prov: NINO WINKLER MD 07/30/16 Copy Copies To 1: WATSON VILLALBA MD Copies To 2: HERSON VENTURA JOSHUA T MD July 30, 2016 19:48
[2016-07-30 19:59] LABS: SQUAMOUS EPITHELIAL CELL,UR 0-2 /HPF
[2016-07-30 20:36] LABS: BASOPHILS # (AUTO) 0.1 10^3/uL (0.0-0.1); BASOPHILS % (AUTO) 1 % (0-10); EOSINOPHILS # (AUTO) 0.2 10^3/uL (0.0-0.3); EOSINOPHILS % (AUTO) 3 % (0-10); LYMPHOCYTES # (AUTO) 2.9 X 10^3 (1.0-4.0); LYMPHOCYTES % (AUTO) 30 % (12-44); MEAN CORPUSCULAR HEMOGLOBIN 28 PG (25-34); MEAN CORPUSCULAR HGB CONC 33 G/DL (32-36); MEAN CORPUSCULAR VOLUME 85 FL (80-99); MEAN PLATELET VOLUME 9.8 FL (7.4-10.4); MONOCYTES # (AUTO) 0.9 X 10^3 (0.0-1.0); MONOCYTES % (AUTO) 9 % (0-12); NEUTROPHILS # (AUTO) 5.5 X 10^3 (1.8-7.8); NEUTROPHILS % (AUTO) 58 % (42-75); PLATELET COUNT 252 10^3/uL (130-400); RED BLOOD COUNT 4.47 10^6/uL (4.35-5.85); RED CELL DISTRIBUTION WIDTH 14.4 % (10.0-14.5); WHITE BLOOD COUNT 9.5 10^3/uL (4.3-11.0)
[2016-07-30 20:51] LABS: ALANINE AMINOTRANSFERASE 59 U/L (0-55); ANION GAP 9 MMOL/L (5-14); ASPARTATE AMINO TRANSFERASE 45 U/L (5-34); BILIRUBIN,TOTAL 0.3 MG/DL (0.1-1.0); BLOOD UREA NITROGEN 11 MG/DL (7-18); BUN/CREATININE RATIO 15; CALCIUM 9.2 MG/DL (8.5-10.1); CARBON DIOXIDE 25 MMOL/L (21-32); CHLORIDE 106 MMOL/L (98-107); CREATININE SERUM 0.75 MG/DL (0.60-1.30); GFR ESTIMATED > 60; GLUCOSE 88 MG/DL (70-105); POTASSIUM 4.3 MMOL/L (3.6-5.0); SODIUM 140 MMOL/L (135-145); TOTAL PROTEIN 7.3 G/DL (6.4-8.2); hs C REACTIVE PROTEIN 3.47 MG/DL (0.00-0.50)
[2016-07-30] MEDS ORDERED: KETOROLAC 30 MG/ML VIAL IVP ONE (21:30)
[2016-07-30] MEDS ORDERED: DOXYCYCLINE 100 MG (VIBRAMYCIN) TABLET PO ONE (21:30)
[2016-07-30] MEDS ORDERED: DOXY100T2 PO (21:42)
[2016-07-30 22:02] VITALS: BP 114/65
== END 2016-07-30 22:03 | disposition home or self-care (01) ==
LOC: EDUNIT# 18:12 → ER 18:13
DX: G89.18 Other acute postprocedural pain (principal); R05 Cough; Z79.899 Other long term (current) drug therapy; Z90.49 Acquired absence of other specified parts of digestive tract; Z90.721 Acquired absence of ovaries, unilateral
CPT/HCPCS: 36415; 71020; 74020; 80053; 81000; 85025; 86141; 94640; 96361; 96374; 96375; 96376

== ENCOUNTER → 2016-09-07 | Outpatient (CLI) | payer OTHER ==
[~2016-09-07] MED LIST changes: +BARIUM SUSPENSION 105% (LIQUID POLIBAR PLUS) 240 ML/DOSE PO ONE; +BARIUM SUSPENSION 60% (LIQUID EZ PAQUE) 240 ML DOSE PO ONE; +DOXY100T2 PO
--- NOTE | 2016-09-07 11:43 | Diagnostic Imaging Report ---
EXAMINATION: Upper GI study, double contrast. Clinical Manager Home Care image of the abdomen was performed. After the oral administration of gas forming granules, the patient drank thick and thin barium with visualization under fluoroscopy, with spot images taken over the esophagus, stomach and duodenum and followed by overhead images in the chest and abdomen. INDICATION: reflux. FLUOROSCOPY TIME: One minutes and 21 seconds. FINDINGS: Clinical Manager Home Care images of the abdomen demonstrate small amount of fecal material. Surgical clips and upper right side of the abdomen is seen. The esophagus demonstrates normal caliber with no strictures. The mucosal pattern demonstrates no filling defects, diverticulum or ulceration. There is normal relaxation of the distal sphincter. There is no hiatal hernia. The stomach demonstrates normal distensibility with normal appearance of the mucosal folds. There are no ulcers or evidence of mass. The duodenal bulb and sweep appear normal. IMPRESSION: Unremarkable double-contrast upper GI study. Dictated by: Dictated on workstation # [id number]
== END ==
LOC: RAD 09:49
PROVIDERS: ATTEND Nurse Practitioner Family
DX: K21.9 Gastro-esophageal reflux disease without esophagitis (principal)
CPT/HCPCS: 74241

== ENCOUNTER → 2016-11-10 | Outpatient (CLI) | payer OTHER ==
[~2016-11-10] VITALS: Ht 157.5 cm; Wt 99.8 kg
[~2016-11-10] MED LIST changes: -BARIUM SUSPENSION 105% (LIQUID POLIBAR PLUS) 240 ML/DOSE PO ONE; -BARIUM SUSPENSION 60% (LIQUID EZ PAQUE) 240 ML DOSE PO ONE
[2016-11-10 11:51] VITALS: BP 123/78
[2016-11-10 12:16] LABS: BASOPHILS % (AUTO) 1 % (0-10); EOSINOPHILS # (AUTO) 0.3 10^3/uL (0.0-0.3); EOSINOPHILS % (AUTO) 4 % (0-10); LYMPHOCYTES # (AUTO) 2.2 X 10^3 (1.0-4.0); LYMPHOCYTES % (AUTO) 29 % (12-44); MEAN CORPUSCULAR HEMOGLOBIN 28 PG (25-34); MEAN CORPUSCULAR HGB CONC 34 G/DL (32-36); MEAN CORPUSCULAR VOLUME 81 FL (80-99); MEAN PLATELET VOLUME 9.6 FL (7.4-10.4); MONOCYTES # (AUTO) 0.7 X 10^3 (0.0-1.0); MONOCYTES % (AUTO) 9 % (0-12); NEUTROPHILS # (AUTO) 4.4 X 10^3 (1.8-7.8); NEUTROPHILS % (AUTO) 57 % (42-75); PLATELET COUNT 322 10^3/uL (130-400); RED BLOOD COUNT 5.06 10^6/uL (4.35-5.85); RED CELL DISTRIBUTION WIDTH 14.5 % (10.0-14.5); WHITE BLOOD COUNT 7.7 10^3/uL (4.3-11.0)
== END ==
LOC: PREOP 11:38
PROVIDERS: ATTEND Surgery
DX: Z01.812 Encounter for preprocedural laboratory examination (principal); E66.01 Morbid (severe) obesity due to excess calories
CPT/HCPCS: 36415; 85025; 87081

== ENCOUNTER 2016-11-17 06:00 | Inpatient (IN) | payer OTHER ==
[2016-11-17] VITALS (7 sets, daily range): BP systolic 111–151; BP diastolic 74–88
[~2016-11-17] VITALS: Ht 157.5 cm; Wt 99.8 kg
[2016-11-17] MEDS ORDERED: NS (IVPB) 50 ML ONE (06:13)
[2016-11-17] MEDS ORDERED: ceFAZolin 1,000 MG (ANCEF) VIAL ONE (06:13)
[2016-11-17] MEDS ORDERED: FAMOTIDINE 20MG/2ML IV (PEPCID) IV ONE (06:15)
[2016-11-17] MEDS ORDERED: ONDANSETRON 4 MG/2 ML (SDV) Z0FRAN IV ONE (06:15)
[2016-11-17] MEDS ORDERED: MIDAZOLAM 2 MG/2 ML (VERSED) VIAL IV ONE (06:15)
[2016-11-17] MEDS: LACTATED RINGERS 1,000 ML IV PRN ×2 (06:24→09:00)
[2016-11-17] MEDS ORDERED: LIDOCAINE PF 2% 5 ML (XYLOCAINE) VIAL ONE (06:44)
[2016-11-17] MEDS ORDERED: DEXAMETHASONE 10 MG/ML (DECADRON) 1 ML VIAL ONE (06:44)
[2016-11-17] MEDS ORDERED: ROCURONIUM 50 MG/5 ML (ZEMURON) VIAL IV ONE ×2 (06:44→09:47)
[2016-11-17] MEDS ORDERED: proPOfol 200 MG/20 ML (DIPRIVAN) VIAL IV ONE (06:44)
[2016-11-17] MEDS ORDERED: fentaNYL INJECTION 250 MCG/5 ML AMP ONE (06:44)
[2016-11-17] MEDS ORDERED: SEVOFLURANE (ULTANE) 15 ML INHAL SOLN ONE ×3 (06:44→10:46)
[2016-11-17] MEDS ORDERED: ONDANSETRON 4 MG/2 ML (SDV) Z0FRAN ONE ×2 (06:44→10:46)
[2016-11-17] MEDS ORDERED: MIDAZOLAM 2 MG/2 ML (VERSED) VIAL ONE (06:44)
[2016-11-17] MEDS ORDERED: LACTATED RINGERS 1,000 ML IV ONE ×2 (06:44→09:07)
[2016-11-17] MEDS ORDERED: ceFAZolin 1 GM/NS 50 ML IVPB IV ONE ×2 (07:30)
[2016-11-17] MEDS ORDERED: BUP/EPI 0.5% 1:200,000 (MARCAINE) 10ML VIAL IJ ONE (07:45)
--- NOTE | 2016-11-17 07:58 | Progress Note-Pre Operative ---
Pre-Operative Progress Note H&P Reviewed The H&P was reviewed, patient examined and no changes noted. Date Seen by Provider: Nov 17, 2016 Time Seen by Provider: 07:50 Date H&P Reviewed: Nov 17, 2016 Time H&P Reviewed: 07:55 Pre-Operative Diagnosis: Morbid obesity, Degenerative Joint Disease LYSSA MILES APRN Nov 17, 2016 7:58 am
[2016-11-17] MEDS ORDERED: NEOSTIGMINE (BLOXIVERZ ) 1 MG/1ML 10 ML VIAL ONE (10:20)
[2016-11-17] MEDS ORDERED: GLYCOPYRROLATE 0.2 MG/ML (ROBINUL) 2 ML VIAL ONE (10:20)
[2016-11-17] MEDS ORDERED: morphine INJ 10 MG/ML 1ML (SYR OR VIAL) ONE (10:45)
[2016-11-17] MEDS ORDERED: NS IV 1000 ML 1,000 ML IV SCH (10:49)
--- NOTE | 2016-11-17 10:49 | Progress Note-Post Operative ---
Post-Operative Progess Note Surgeon (s)/Credit Manager (s) Surgeon WATSON PAINTER MD Credit Manager: aden foster TAPER OPERATOR Pre-Operative Diagnosis Morbid obesity, Degenerative Joint Disease Post-Operative Diagnosis same Procedure & Operative Findings Date of Procedure 11/17/16 Procedure Performed/Findings laparoscopic gastric sleeve resection. Anesthesia Type GET Estimated Blood Loss Estimated blood loss (mL): minimal Specimens/Packing Specimens Removed stomach WATSON PAINTER MD Nov 17, 2016 10:49
[2016-11-17] MEDS: morphine INJ 10 MG/ML 1ML (SYR OR VIAL) IVP PRN ×2 (10:53→11:02)
[2016-11-17] MEDS ORDERED: diphenhydrAMINE 50 MG/ML INJ (BENADRYL) IVP PRN (11:00)
[2016-11-17] MEDS ORDERED: PROMETHAZINE INJ 25 MG/ML (PHENERGAN) AMP IVP PRN (11:00)
[2016-11-17] MEDS ORDERED: ONDANSETRON 4 MG/2 ML (SDV) Z0FRAN IV PRN ×2 (11:00→19:45)
[2016-11-17] MEDS ORDERED: ONDANSETRON 4 MG/2 ML (SDV) Z0FRAN IVP PRN (11:00)
[2016-11-17] MEDS ORDERED: MEPERIDINE (DEMEROL) INJ 50 MG/ML IVP PRN (11:00)
[2016-11-17] MEDS ORDERED: oxyCODONE 20 MG/1 ML ORAL CONC (RoxiCODONE) CHARGE PER 1 ML PO PRN (11:00)
[2016-11-17] MEDS ORDERED: diphenhydrAMINE 50 MG/ML INJ (BENADRYL) IV PRN (11:00)
[2016-11-17] MEDS ORDERED: fentaNYL PCA 300 MCG/30 ML VIAL IV PRN (11:00)
[2016-11-17] MEDS ORDERED: NALOXONE 0.4 MG/ML 1 ML (NARCAN) VIAL IV PRN (11:00)
[2016-11-17] MEDS ORDERED: HYDROmorphone (DILAUDID) 2 MG/ML VIAL IVP PRN (11:00)
[2016-11-17] MEDS ORDERED: PANT40TA2 PO (11:14)
[2016-11-17] MEDS ORDERED: ONDN4T PO (11:14)
[2016-11-17] MEDS ORDERED: OXYC5SOL19 PO (11:14)
--- NOTE | 2016-11-17 11:15 | Discharge Inst-Surgical ---
D/C Lap Instructions-INOCENCIO New, Converted, or Re-Newed RX: RX on Chart Follow Up Appt in 2 weeks Activity as tolerated No driving for 24 hours No driving while on pain medications Incentive Spirometry use every 2 hours while awake clear liquid diet next 2 weeks. Symptoms to Report: Fever over 101 degree F, Nausea/Vomiting Infection Signs and Symptoms to report: Increased redness, Foul odor of wound, Increased drainage Bathing instructions: May shower Operative Area Clean/Dry; Keep incision clean/dry If any problems/questions: Contact your physician or go to Emergency Room WATSON PAINTER MD Nov 17, 2016 11:15
[2016-11-17] MEDS: METOCLOPRAMIDE INJ 10 MG/2 ML (REGLAN) IVP SCH ×3 (12:47→23:53)
[2016-11-17] MEDS: LACTATED RINGERS 1,000 ML IV SCH ×3 (13:13→23:48)
[2016-11-17] MEDS: ONDANSETRON 4 MG/2 ML (SDV) Z0FRAN IVP SCH ×3 (13:59→23:53)
[2016-11-17] MEDS: metroNIDAZOLE 500MG/100ML IVPB 100 ML IV SCH ×2 (14:08→22:05)
[2016-11-17] MEDS: RT-ALBUTEROL SULF 2.5 MG/3 ML PRE-MIX VIAL INH SCH ×2 (14:50→19:00)
[2016-11-17] MEDS: METOCLOPRAMIDE INJ 10 MG/2 ML (REGLAN) IV PRN (16:50)
[2016-11-17] MEDS: ceFAZolin 2 GM/50 ML NS 50 ML IV SCH ×2 (16:50→23:48)
--- NOTE | 2016-11-17 17:27 | OPERATIVE REPORT ---
DATE OF SERVICE: 11/17/2016 ATTENDING PRIMARY CARE PHYSICIAN: Justus Sen APRN PREOPERATIVE DIAGNOSIS: Morbid obesity, hyperlipidemia, gastroesophageal reflux disease, degenerative joint disease. POSTOPERATIVE DIAGNOSES: Morbid obesity, hyperlipidemia, gastroesophageal reflux disease, degenerative joint disease. PROCEDURE: Laparoscopic gastric sleeve resection. SURGEON: Dr. Painter. MITER OPERATOR: Andrey Lang APRN. ANESTHESIA: General endotracheal. ESTIMATED BLOOD LOSS: Minimal. FINDINGS: No hiatal hernia, surgically absent gallbladder. DISPOSITION: The patient tolerated the procedure well. INDICATIONS: The patient is a 41-year-old female with morbid obesity in our surgical weight loss program for the gastric sleeve resection and does meet the medical criteria for bariatric surgery. She began to gain the majority of her adult weight over the last 10 to 12 years. She has tried a number of diet and exercise attempts with no success. She has tried diet programs including yogurt diet, cottage cheese diet, no sugar diet and would have some success; however, would regain the weight back. She has tried the exercise regimens including an elliptical seeing eye dog trainer, aerobic exercise classes, treadmill, resistance weight training and would have again some mild success; however, would regain the weight back. She also has tried medications including Contrave and phentermine; however, after discontinuation of the medications she would regain her weight. Her medical comorbidities include gastroesophageal reflux disease, hyperlipidemia and degenerative joint disease. DESCRIPTION OF PROCEDURE: The patient was brought to the operating room, laid supine on the table. After adequate IV pain and sedative medications and general endotracheal intubation, the abdomen was prepped and draped in a standard surgical fashion. Marcaine 0.5% with epinephrine was then used to anesthetize the overlying skin in the left upper abdominal quadrant. A small transverse skin incision made using a 15 blade. An 0 silk suture was applied to the medial aspect of the incision for retraction and a Veress needle inserted with a low opening pressure of 0 mmHg. The abdomen was insufflated to 15 mmHg pressure. The Veress needle removed and a 5 mm Xcel trocar placed followed by a 5 mm 45 degree angle laparoscope visualizing the peritoneal cavity. A 4-quadrant abdominal exploration was performed. There was a surgically absent gallbladder. There was mild liver steatosis. No hiatal hernia was identified. Under direct visualization, we then proceeded to place a midabdominal left of midline 10 mm port after the skin and peritoneum were anesthetized using 0.5% Marcaine with epinephrine and a transverse skin incision made using a 15 blade. In a similar manner, a midabdominal right of midline 15 mm port was placed. We then proceeded with placement of a 5 mm right upper abdominal quadrant port. An area was then anesthetized in the epigastric region and a transverse skin incision made using an 11 blade. A tract was then created through the abdominal wall layers using a trocar to a 5 mm port. Through this opening a medium sized Nathansen liver retractor was placed and the left lobe of liver retracted anteriorly and superiorly. The patient was then placed in steep reverse Trendelenburg position. We measured approximately 6 cm along the greater curvature from the pylorus and marked this with a marking pen. The gastrocolic ligament next to the stomach was then opened using the Sonicision entering the lesser sac. We then proceeded with Caudate dissection until we were approximately 2 cm below our marking with good hemostasis. We then proceeded with cephalad dissection taking down the short gastric vessels. The entire angle of his connective tissue fibers were also taken down as well as the posterior stomach behind it. No hiatal hernia was identified. The gastrisail lighted bougie was then placed under direct visualization into the pylorus. We used this as our guide for gastric sleeve resection. A NÉSTOR 45 mm stapler which was polyglycolic acid coated and black load was then used to staple and transect the stomach approximately 2 cm below our marking. We then proceeded with a 60 mm black load followed by three 60 mm purple loads with visualization of good hemostasis. Approximately 2 cm from the GE junction was left as well. Staple line corners were then clipped with 5 mm clips. The pylorus was then occluded and 60 mL of air were infused through the gastrisail after saline was infused next to the stomach with no leak identified. The saline was then suctioned out. The staple line was then covered with Tisseel fibrin glue and the omentum placed over the staple line. The liver retractor was then removed followed by the resected stomach through the 15 mm port site. The fascia and peritoneum to the 10 and 15 mm port site were then closed under direct visualization using a Vitaly-Radha device and 0 Vicryl suture. The abdomen was then desufflated and remaining ports removed. All skin incisions were closed using 4-0 Monocryl running subcuticular sutures. The wound was then cleaned and covered with Dermabond. The wounds were then cleaned and covered with Dermabond. The wounds were then covered with Dermabond. The patient tolerated the procedure well. We will admit her for 23-hour observation and proceed with DVT prophylaxis with calf SCDs early ambulation as well as Lovenox injections. We will also proceed with fentanyl RETOUCHER PHOTOENGRAVING for pain control. Tomorrow we will start patient on clear liquid diet and once she is tolerating 60 mL of clear liquids every half hour, and has good pain control with oral pain medications, and ambulating well, we will discharge her home. Job ID: [id number] DocumentID: [id number] Dictated Date: 11/17/2016 11:13:44 Cloth Dyer Date: 11/17/2016 16:28:38 Dictated By: WATSON PAINTER MD
[2016-11-17] MEDS ORDERED: DEXAMETHASONE 4 MG/ML SDV (DECADRON) IV PRN (19:45)
[2016-11-17] MEDS ORDERED: RT-ALBUTEROL SULF 2.5 MG/3 ML PRE-MIX VIAL INH SCH (22:00)
[2016-11-17] MEDS: ENOXAPARIN 30 MG/0.3 ML (LOVENOX) SYR SC SCH (22:05)
[2016-11-17] MEDS ORDERED: RT-ALBUTEROL SULF 2.5 MG/3 ML PRE-MIX VIAL ONE (22:06)
[2016-11-17] MEDS ORDERED: LORazepam INJ 2 MG/ML (ATIVAN) VIAL IVP PRN (23:00)
[2016-11-18 00:15] VITALS: BP 146/82
[2016-11-18] MEDS ORDERED: KETOROLAC 30 MG/ML VIAL IVP ONE (02:15)
[2016-11-18] MEDS: METOCLOPRAMIDE INJ 10 MG/2 ML (REGLAN) IV PRN (02:34)
[2016-11-18] MEDS: RT-ALBUTEROL SULF 2.5 MG/3 ML PRE-MIX VIAL IH SCH ×3 (03:20→11:05)
[2016-11-18 04:00] VITALS: BP 132/82
[2016-11-18] MEDS: metroNIDAZOLE 500MG/100ML IVPB 100 ML IV SCH (05:51)
[2016-11-18] MEDS: METOCLOPRAMIDE INJ 10 MG/2 ML (REGLAN) IVP SCH (05:51)
[2016-11-18] MEDS: ONDANSETRON 4 MG/2 ML (SDV) Z0FRAN IVP SCH (05:52)
[2016-11-18] MEDS: LACTATED RINGERS 1,000 ML IV SCH ×2 (05:58→08:53)
[2016-11-18 06:31] LABS: RED BLOOD COUNT 4.4 10^6/uL (4.35-5.85); RED CELL DISTRIBUTION WIDTH 14.5 % (10.0-14.5); WHITE BLOOD COUNT 11.8 10^3/uL (4.3-11.0)
[2016-11-18 06:47] LABS: ANION GAP 10 MMOL/L (5-14); BLOOD UREA NITROGEN 6 MG/DL (7-18); BUN/CREATININE RATIO 9; CARBON DIOXIDE 21 MMOL/L (21-32); CHLORIDE 106 MMOL/L (98-107); CREATININE SERUM 0.65 MG/DL (0.60-1.30); GFR ESTIMATED > 60; GLUCOSE 125 MG/DL (70-105); POTASSIUM 3.4 MMOL/L (3.6-5.0); SODIUM 137 MMOL/L (135-145)
[2016-11-18 08:00] VITALS: BP 133/63
[2016-11-18] MEDS: ENOXAPARIN 30 MG/0.3 ML (LOVENOX) SYR SC SCH (08:54)
[2016-11-18] MEDS: ceFAZolin 2 GM/50 ML NS 50 ML IV SCH (08:54)
[2016-11-18] MEDS ORDERED: SENNA W/DOCUSATE (SENOKOT S) TABLET PO SCH (09:00)
[2016-11-18] MEDS ORDERED: ONDANSETRON 4 MG/2 ML (SDV) Z0FRAN IVP PRN (11:00)
[2016-11-18] MEDS ORDERED: METOCLOPRAMIDE INJ 10 MG/2 ML (REGLAN) IVP PRN (11:00)
[2016-11-18 12:00] VITALS: BP 133/65
--- NOTE | 2016-11-18 13:36 | Progress Note (SOAP) ---
Subjective Date Seen by Provider: Nov 18, 2016 Time Seen by Provider: 12:00 Subjective/Events-last exam doing well. has nausea however under control. pain controlled. tolerating phase 1 liquids. Objective Exam Vital Signs Date Time Temp Pulse Resp B/P (MAP) Pulse Ox O2 Delivery O2 Flow Rate FiO2 11/18/16 12:00 98.6 65 20 133/65 96 Room Air 11/18/16 11:05 96 Room Air 11/18/16 09:00 98 Room Air 11/18/16 08:00 98.4 67 20 133/63 99 Nasal Cannula 3.00 11/18/16 07:00 100 Nasal Cannula 3.00 11/18/16 04:00 98.6 72 21 132/82 99 Nasal Cannula 3.00 11/18/16 03:20 99 Nasal Cannula 3.00 11/18/16 00:15 98.4 62 21 146/82 98 Nasal Cannula 3.00 11/17/16 23:09 100 Nasal Cannula 3.00 11/17/16 21:00 18 11/17/16 20:00 98.5 58 21 151/84 100 Nasal Cannula 3.00 11/17/16 19:00 100 Nasal Cannula 3.00 11/17/16 16:00 97.3 60 20 142/87 96 Nasal Cannula 3.00 11/17/16 14:51 96.9 66 14 131/84 100 Nasal Cannula 3.00 11/17/16 14:48 100 Nasal Cannula 3.00 11/17/16 13:55 97.1 100 14 139/74 100 Nasal Cannula 3.00 I & O 11/19/16 07:00 Intake Total 1100 ml Balance 1100 ml Capillary Refill : Less Than 3 Seconds General Appearance: No Apparent Distress HEENT: PERRL/EOMI Neck: Full Range of Motion Respiratory: Chest Non Tender, Normal Breath Sounds Cardiovascular: Regular Rate, Rhythm Gastrointestinal: soft, tenderness Extremity: Normal Capillary Refill 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: Alert, Oriented x3 Skin: Normal Color Lymphatic: No Adenopathy Results Lab Laboratory Tests 11/17/16 19:31: Glucometer 136H 11/18/16 06:15: White Blood Count 11.8H, Red Blood Count 4.40, Hemoglobin 12.2, Hematocrit 36, Mean Corpuscular Volume 82, Mean Corpuscular Hemoglobin 28, Mean Corpuscular Hemoglobin Concent 34, Red Cell Distribution Width 14.5, Platelet Count 268, Mean Platelet Volume 10.0, Sodium Level 137, Potassium Level 3.4L, Chloride Level 106, Carbon Dioxide Level 21, Anion Gap 10, Blood Urea Nitrogen 6L, Creatinine 0.65, Estimat Glomerular Filtration Rate > 60, BUN/Creatinine Ratio 9 , Glucose Level 125H, Calcium Level 9.0 Assessment/Plan Assessment/Plan Assess & Plan/Chief Complaint s/p lap sleeve gastrectomy. ambulate. continue clear liquids next 2 weeks. home soon. Clinical Quality Measures DVT/VTE Risk/Contraindication: Risk Factor Score Per Nursin RFS Level Per Nursing on Admit: 4+=Very High WATSON PAINTER MD Nov 18, 2016 1:36 pm
== END 2016-11-18 12:50 | disposition home or self-care (01) | DRG 621 ==
LOC: SDC 06:00 → EDSTATUS 07:30 → 4TH 11:45
PROVIDERS: ADMIT Surgery; ATTEND Surgery
PROC: 0DB64Z3 Excision of Stomach, Percutaneous Endoscopic Approach, Vertical (ICD-10-PCS; principal; 2016-11-17 08:37)
DX: E66.01 Morbid (severe) obesity due to excess calories (principal); Z68.41 Body mass index [BMI] 40.0-44.9, adult; E78.5 Hyperlipidemia, unspecified; K21.9 Gastro-esophageal reflux disease without esophagitis; M19.91 Primary osteoarthritis, unspecified site
CPT/HCPCS: 36415; 80048; 82962; 85027; 88307; 88342; 93005; 94640; 94664; 94760

== ENCOUNTER 2017-06-20 00:09 | Emergency (ER) | payer SELFPAY ==
[~2017-06-20] VITALS: Ht 157.5 cm; Wt 99.8 kg
[~2017-06-20 00:09] MED LIST changes: +HYDR-34 PO; -HYDR-3816 PO; +NAPR-1071 PO; -NAPR500T PO; +ONDN4T PO; +OXYC5SOL19 PO; +PANT40TA2 PO
--- OUTSIDE RECORDS SUMMARY | 2017-06-20 00:17 | XMS REPORT ---
Author Author JERMAINE BARFIELD Organization [facility] Address [address] [place] [address] Care Team Providers Care Brick Mason Name Role Phone JERMAINE BARFIELD Unavailable PROBLEMS Type Condition ICD9-CM Code [id number] Code Onset Dates Condition Status SNOMED Code Problem Family history of colon cancer requiring screening colonoscopy Z80.0 Active 987581122 Problem Other acute postprocedural pain G89.18 Active 250805126612422 Problem Pain in left knee M25.562 Active 198825485 Problem Unspecified mood [affective] disorder F39 Active 73075111 Problem Complex cyst of left ovary N83.29 Active 208964319 Problem Eating disorder, unspecified F50.9 Active 57459144 Problem Stress incontinence, female N39.3 Active 08424301 Problem Breast tenderness N64.4 Active 01104192 Problem Morbid (severe) obesity due to excess calories E66.01 Active 552657919 Problem Body mass index (BMI) of 40.0-44.9 in adult Z68.41 Active 412929993 Problem Anxiety state, unspecified F41.1 Active 771272977 Problem Diverticulitis of large intestine without perforation or abscess without bleeding K57.32 Active 847575740 Problem Hyperpigmentation L81.9 Active 74098494 Problem Other constipation K59.09 Active 121756289067749 Problem History of IBS Z87.19 Active 42944354836189 Problem Abdominal pressure R10.9 Active 148872133 Problem Right upper quadrant pain R10.11 Active 978094814 Problem Dyspareunia N94.1 Active 72460528 Problem Nausea R11.0 Active 040139575 Problem Varicosities I86.8 Active 673819095 Problem Calcaneal spur M77.30 Active 21588706 Problem Left lower quadrant pain R10.32 Active 341492593 Problem Left knee injury S89.92XA Active 169082542 ALLERGIES No Known Allergies SOCIAL HISTORY Never Assessed PLAN OF CARE Activity Details Follow Up prn Reason: VITAL SIGNS Height 62 in 2016-05-26 Weight 242.2 lbs 2016-05-26 Temperature 100.0 degrees Fahrenheit 2016-05-26 Heart Rate 78 bpm 2016-05-26 Respiratory Rate 20 2016-05-26 BMI 44.29 kg/m2 2016-05-26 Blood pressure systolic 96 mmHg 2016-05-26 Blood pressure diastolic 68 mmHg 2016-05-26 MEDICATIONS Unknown Medications RESULTS Name Result Date Reference Range Xray : Wrist, Left 3 views (IN HOUSE) 2016-05-26 PROCEDURES Procedure Date Ordered Result Body Site X-RAY EXAM OF WRIST May 26, 2016 IMMUNIZATIONS No Known Immunizations MEDICAL (GENERAL) HISTORY Type Description Date Medical History diabetes mellitus Medical History ovarian cysts Medical History left knee surgery Surgical History appendectomy Surgical History hysterectomy, total with unilateral salpingo-oophorectomy ( USO)--left the left side Surgical History right knee arthroscopy Surgical History section x 4 Surgical History left knee arthroscopy Hospitalization History Surgery and childbirth only
--- OUTSIDE RECORDS SUMMARY | 2017-06-20 00:17 | XMS REPORT ---
Author Author ARCADIOSARAHI Organization [facility] Address [address] [place] [address] Care Team Providers Care Chairman Ceo Name Role Phone ERVINSARAHI Gaspar Unavailable PROBLEMS Type Condition ICD9-CM Code DLA88-UK Code Onset Dates Condition Status SNOMED Code Problem Family history of colon cancer requiring screening colonoscopy Z80.0 Active 459343938 Problem Other acute postprocedural pain G89.18 Active 969249825755370 Problem Pain in left knee M25.562 Active 185993471 Problem Unspecified mood [affective] disorder F39 Active 42998709 Problem Complex cyst of left ovary N83.29 Active 095690918 Problem Eating disorder, unspecified F50.9 Active 46324566 Problem Stress incontinence, female N39.3 Active 81546549 Problem Breast tenderness N64.4 Active 55362455 Problem Morbid (severe) obesity due to excess calories E66.01 Active 238199408 Problem Body mass index (BMI) of 40.0-44.9 in adult Z68.41 Active 147065982 Problem Anxiety state, unspecified F41.1 Active 823439641 Problem Diverticulitis of large intestine without perforation or abscess without bleeding K57.32 Active 181499511 Problem Hyperpigmentation L81.9 Active 69889292 Problem Other constipation K59.09 Active 040920643887948 Problem History of IBS Z87.19 Active 50275755089981 Problem Abdominal pressure R10.9 Active 758886333 Problem Right upper quadrant pain R10.11 Active 641178463 Problem Dyspareunia N94.1 Active 70633567 Problem Nausea R11.0 Active 099338421 Problem Varicosities I86.8 Active 580843859 Problem Calcaneal spur M77.30 Active 94492013 Problem Left lower quadrant pain R10.32 Active 175264923 Problem Left knee injury S89.92XA Active 281948367 ALLERGIES No Information SOCIAL HISTORY Never Assessed PLAN OF CARE VITAL SIGNS MEDICATIONS Unknown Medications RESULTS No Results PROCEDURES No Known procedures IMMUNIZATIONS No Known Immunizations MEDICAL (GENERAL) HISTORY [...]
--- OUTSIDE RECORDS SUMMARY | 2017-06-20 00:18 | XMS REPORT ---
Author Author FREDERICK KNAPP Organization [facility] Address [address] [place] [address] Care Team Providers Care Diesel Engineer Name Role Phone FREDERICK KNAPP Unavailable PROBLEMS Type Condition ICD9-CM Code TUD99-XS Code Onset Dates Condition Status SNOMED Code Problem Other obesity due to excess calories E66.09 Active 545467410 Problem Body mass index (BMI) of 31.0-31.9 in adult Z68.31 Active 733604841 Problem Varicosities I86.8 Active 590866661 Problem Breast tenderness N64.4 Active 58482579 Problem Unspecified mood [affective] disorder F39 Active 61067304 Problem Anxiety state, unspecified F41.1 Active 642581332 ALLERGIES No Information ENCOUNTERS Encounter Location Date Diagnosis [facility] [address] [address] 21 Apr, 2017 Cough R05 and Influenza J11.1 [facility] [address] [place] [address] 06 Apr, 2017 Screening breast examination Z12.31 ; Breast tenderness in female N64.4 ; Other obesity due to excess calories E66.09 and Body mass index ( BMI) of 31.0-31.9 in adult Z68.31 [facility] [id number] [place] [address] Apr, Gastroenteritis K52.9 [facility] [address] [id number] Mar, Dental examination Z01.20 and Dental caries K02.9 [facility] [address] [address] 13 Feb, 2017 Gum abscess K05.219 [facility] [address] [place] [address] Feb, [facility] [id number] [place] [address] Dec, Varicosities I86.8 [place] [id number] [place] [address] Sep, [place] [address] [address] Sep, [place] [address] [address] Sep, Anxiety state, unspecified F41.1 [place] [address] [address] Aug, Unspecified mood [affective] disorder F39 and Eating disorder, unspecified F50.9 [place] [address] [address] Aug, Anxiety state, unspecified F41.1 [place] [id number] [place] [address] Jun, [place] [address] [address] Jun, Fatigue, unspecified type R53.83 [place] [id number] [place] [address] Jun, Abdominal pain, left lower quadrant R10.32 ; Candidiasis, cutaneous B37.2 ; Fatigue, unspecified type R53.83 ; Morbid (severe) obesity due to excess calories E66.01 ; General medical exam Z00.00 and Diverticulitis of large intestine without perforation or abscess without bleeding K57.32 [facility] [id number] [place] [address] May, Left wrist pain M25.532 and Left wrist sprain, initial encounter S63.502A [place] [address] [address] 02 May, 2016 General medical exam Z00.00 [place] [id number] [place] [address] 12 Mar, 2016 Encounter for routine adult health examination with abnormal findings Z00.01 ; Body mass index (BMI) of 40.0-44.9 in adult Z68.41 ; Morbid (severe) obesity due to excess calories E66.01 ; History of IBS Z87.19 and Family history of colon cancer requiring screening colonoscopy Z80.0 [place] [address] [address] 30 Oct, 2015 [place] [address] [address] Oct, Other acute postprocedural pain G89.18 ; Pain in left knee M25.562 ; Family history of colon cancer requiring screening colonoscopy Z80.0 and Hyperpigmentation L81.9 [place] [address] [address] May, [place] [address] [address] May, Left knee injury S89.92XA [place] [address] [address] Apr, [place] [id number] [place] [address] Apr, Left knee injury S89.92XA and Varicosities I86.8 [place] [id number] [place] [address] Mar, [facility] [address] [address] Mar, Acute pain of left knee M25.562 and Strain of left knee, initial encounter S86.912A [place] [address] [address] Mar, Lower abdominal tenderness R10.819 and Breast tenderness N64.4 [place] [id number] [place] [address] Feb, [place] [id number] [place] [address] Feb, Well woman exam Z01.419 ; Vaginal discharge N89.8 ; Lower abdominal tenderness R10.819 ; Hyperpigmentation L81.9 ; Other constipation K59.09 ; Nausea R11.0 ; Breast tenderness N64.4 ; Abdominal pressure R10.9 ; Dysuria R30.0 ; Stress incontinence, female N39.3 ; Right upper quadrant pain R10.11 ; Other fatigue R53.83 ; Left lower quadrant pain R10.32 ; History of IBS Z87.19 ; Dyspareunia N94.1 ; Papanicolaou smear Z12.4 and Complex cyst of left ovary N83.29 [place] [id number] [place] [address] 16 Feb, 2015 Abdominal pain R10.9 and Pelvic pain R10.2 [place] [id number] [place] [address]- [address] Feb, [place] [id number] [place] [address] Feb, [place] [id number] [place] [address] Feb, General medical exam Z00.00 ; Right upper quadrant pain R10.11 and History of borderline diabetes mellitus Z87.898 [place] [id number] [place] [address] Feb, Right upper quadrant pain R10.11 [place] [address] [address] 28 Jun, 2014 Lumbago 724.2 [place] [id number] [place] [address]- [address] 14 Jun, 2014 [place] [address] [facility] [id number] [place] [address] Jun, [facility] [place] [facility] [address] [id number] [place] [address] May, [facility] [place] [facility] [address] [id number] [place] [address] May, [facility] [place] [facility] [address] [id number] [place] [address] Apr, [facility] [place] [facility] [address] [id number] [place] [address] Apr, [facility] [place] [facility] [address] [id number] [place] [address] Mar, [facility] [place] [facility] [address] [id number] [place] [address] 8[address] Mar, [facility] [place] [facility] [address] [id number] [place] [address] Mar, [facility] [place] [facility] [address] [id number] [place] [address] Mar, [facility] [place] [facility] [address] [id number] [place] [address] Mar, [facility] [place] [facility] [address] [id number] [place] [address]- [address] Mar, [facility] [place] [facility] [address] [id number] [place] [address] Mar, [facility] [place] [facility] [address] [id number] [place] [address]- [address] Feb, [facility] [place] [facility] [address] [id number] [place] [address]- [address]80 Feb, [facility] [place] [facility] [address] [id number] [place] [address]- [address] Feb, [facility] [place] [facility] [address] [id number] [place] [address]- 2[address] Feb, [facility] [place] [facility] [address] [id number] [place] [address]- [address] Feb, [facility] [place] [facility] [address] [id number] [place] [address]- 7[address] Jan, [facility] [place] [facility] [address] [id number] [place] [address]- 7838 Jan, [facility] [place] [facility] [address] [id number] [place] [address]- 99[address] Oct, [facility] [place] [facility] [address] [id number] [place] [address] 2440 Oct, [facility] [place] [facility] [address] [id number] [place] [address]- 1358 Sep, [facility] [place] [facility] [address] [id number] [place] [address]- 4464 Sep, [facility] [place] [facility] [address] [id number] [place] [address]- 5298 Aug, [facility] [place] [facility] [address] [id number] [place] [address]- 28[address] Aug, [facility] [place] [facility] [address] [id number] [place] [address]- 77[address] Aug, [facility] [place] [facility] [address] [id number], [place] [address] Apr, [facility] [place] [facility] [address] [id number], [place] [address] Apr, [facility] [place] [facility] [address] [id number] [place] [address]- [address] Apr, [facility] [place] [facility] [address] [id number] [place] [address]- 9552 Apr, [facility] [place] [facility] [address] [id number] [place] [address]- 98[address] Apr, [facility] [place] [facility] [address] [id number] [place] [address]- [address] Mar, [facility] [address] [id number] [place] [address]- [address] Mar, [facility] [address] [id number] [place] [address]- 0727 Mar, [facility] [address] [id number] [place] [address]- 1206 Mar, [facility] [address] [id number] [place] [address]- 9758 Mar, [facility] [address] [id number] [place] [address]- 60[address] Mar, [facility] [address] [id number] [place] [address]- 8660 Mar, [facility] [address] [id number] [place] [address]- 8693 Mar, [facility] [address] [id number] [place] [address]- 6997 Mar, [facility] [address] [id number] [place] [address]- 0846 Oct, [facility] [address] [id number] [place] [address]- 7954 July, [facility] [address] [id number] [place] [address]- 0884 July, [facility] [address] [id number] [place] [address]- 8096 Jun, [facility] [place] [facility] [address] [id number] [place] [address]- 4526 May, [facility] [address] [id number] [place] [address]- 7413 Feb, [facility] [address] [id number] [place] [address]- 9209 Feb, [facility] [address] [facility] [id number] [place] [address]- [address] July, [facility] [address] [facility] [id number], [place] [address]- [address] Apr, [facility] [address] [facility] [id number] [place] [address]- [address] Jan, IMMUNIZATIONS No Known Immunizations SOCIAL HISTORY Never Assessed REASON FOR VISIT Add psychological evaluation for Bariatric surgery. PLAN OF CARE Activity Details Follow Up prn Reason: VITAL SIGNS MEDICATIONS No Known Medications RESULTS No Results PROCEDURES Procedure Date Ordered Result Body Site PSYCHO TESTING BY CHARGE MANAGER September 19, 2016 INSTRUCTIONS MEDICATIONS ADMINISTERED No Known Medications MEDICAL (GENERAL) HISTORY Type Description Date Medical History ovarian cysts Medical History left knee surgery Medical History History of IBS Surgical History appendectomy Surgical History hysterectomy- complete Surgical History right knee arthroscopy Surgical History section x 4 Surgical History left knee arthroscopy Surgical History gastric sleeve--Dr. Villalba 11/17/16 Surgical History gall bladder and left ovary removed 08/2016 Hospitalization History Surgery and childbirth only
--- OUTSIDE RECORDS SUMMARY | 2017-06-20 00:18 | XMS REPORT ---
Author Author ERVINSARAHI Gaspar Organization [facility] Address [address] [place] [address] Care Team Providers Care Structural Drafter Name Role Phone ERVINSARAHI Gaspar Unavailable PROBLEMS Type Condition ICD9-CM Code MPI06-TJ Code Onset Dates Condition Status SNOMED Code Problem Family history of colon cancer requiring screening colonoscopy Z80.0 Active 596802491 Problem Other acute postprocedural pain G89.18 Active 922793217310701 Problem Pain in left knee M25.562 Active 229005299 Problem Unspecified mood [affective] disorder F39 Active 05561128 Problem Complex cyst of left ovary N83.29 Active 502922672 Problem Eating disorder, unspecified F50.9 Active 86922766 Problem Stress incontinence, female N39.3 Active 48827995 Problem Breast tenderness N64.4 Active 54256869 Problem Morbid (severe) obesity due to excess calories E66.01 Active 225246844 Problem Body mass index (BMI) of 40.0-44.9 in adult Z68.41 Active 501453907 Problem Anxiety state, unspecified F41.1 Active 491408642 Problem Diverticulitis of large intestine without perforation or abscess without bleeding K57.32 Active 152889646 Problem Hyperpigmentation L81.9 Active 74678942 Problem Other constipation K59.09 Active 973772368228685 Problem History of IBS Z87.19 Active 16574296036264 Problem Abdominal pressure R10.9 Active 506901724 Problem Right upper quadrant pain R10.11 Active 964825940 Problem Dyspareunia N94.1 Active 57125409 Problem Nausea R11.0 Active 126351440 Problem 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 Unknown Non Drug Allergy Mar, Unknown SOCIAL HISTORY No smoking Hx information available PLAN OF CARE Activity Details Follow Up 4 Weeks Reason:WWE VITAL SIGNS Height 62 in 2016-04-07 Weight 240.8 lbs 2016-04-07 Temperature 97.8 degrees Fahrenheit 2016-04-07 Heart Rate 80 bpm 2016-04-07 Respiratory Rate 18 2016-04-07 BMI 44.04 kg/m2 2016-04-07 Blood pressure systolic 136 mmHg 2016-04-07 Blood pressure diastolic 73 mmHg 2016-04-07 MEDICATIONS Unknown Medications RESULTS Name Result Date Reference Range A1C 2016-04-07 Hemoglobin A1c 5.6 4.8-5.6 INSULIN LEVEL 2016-04-07 Insulin 13.8 2.6-24.9 CBC 2016-04-07 WBC 7.7 3.4-10.8 RBC 4.88 3.77-5.28 Hemoglobin 13.4 11.1-15.9 Hematocrit 41.3 34.0-46.6 MCV 85 79-97 MCH 27.5 26.6-33.0 MCHC 32.4 31.5-35.7 RDW 14.6 12.3-15.4 Platelets 308 150-379 Neutrophils 55 Lymphs 33 Monocytes 7 Eos 4 Basos 1 Neutrophils (Absolute) 4.2 1.4-7.0 Lymphs (Absolute) 2.5 0.7-3.1 Monocytes(Absolute) 0.6 0.1-0.9 Eos (Absolute) 0.3 0.0-0.4 Baso (Absolute) 0.0 0.0-0.2 Immature Granulocytes 0 Immature Grans (Abs) 0.0 0.0-0.1 LIPID PANEL 2016-04-07 Cholesterol, Total 192 100-199 Triglycerides 119 0-149 HDL Cholesterol 43 >39 VLDL Cholesterol Jj 24 5-40 LDL Cholesterol Calc 125 0-99 CMP 2016-04-07 Glucose, Serum 88 65-99 BUN 12 6-24 Creatinine, Serum 0.59 0.57-1.00 eGFR If NonAfricn Am 113 >59 eGFR If Africn Am 131 >59 BUN/Creatinine Ratio 20 9-23 Sodium, Serum 138 134-144 Potassium, Serum 4.4 3.5-5.2 Chloride, Serum 102 96-106 Carbon Dioxide, Total 21 18-29 Calcium, Serum 9.1 8.7-10.2 Protein, Total, Serum 7.5 6.0-8.5 Albumin, Serum 4.2 3.5-5.5 Globulin, Total 3.3 1.5-4.5 A/G Ratio 1.3 1.1-2.5 Bilirubin, Total 0.3 0.0-1.2 Alkaline Phosphatase, S 60 39-117 AST (SGOT) 14 0-40 ALT (SGPT) 12 0-32 PROCEDURES Procedure Date Ordered Related Diagnosis Body Site ASSAY THYROID STIM HORMONE Apr 07, 2016 Office Visit, Est Pt., Level 4 Apr 07, 2016 ASSAY OF INSULIN Apr 07, 2016 LIPID PANEL Apr 07, 2016 GLYCATED HEMOGLOBIN TEST Apr 07, 2016 VENIPUNCT, ROUTINE* Apr 07, 2016 COMPREHEN METABOLIC PANEL Apr 07, 2016 COMPLETE CBC W/AUTO DIFF WBC Apr 07, 2016 IMMUNIZATIONS No Known Immunizations
[2017-06-20] MEDS ORDERED: LACTATED RINGERS 1,000 ML IV ONE (00:23)
[2017-06-20] MEDS ORDERED: ONDANSETRON 4 MG/2 ML (SDV) Z0FRAN IVP ONE (00:30)
[2017-06-20] MEDS ORDERED: fentaNYL INJECTION 100 MCG/2 ML AMP IVP ONE (00:30)
--- NOTE | 2017-06-20 00:30 | ED Abdominal Pain ---
General Chief Complaint: -Female Stated Complaint: MIDDLE & LOWER BACK LOCKING UP,ABD PAIN & PELVIC P Nursing Triage Note: INTERMITTANT LOWER BACK PAIN RADIATING TO ABDOMEN/GROIN Sepsis Screen: No Definite Risk Source of Information: Patient Exam Limitations: No Limitations History of Present Illness Date Seen by Provider: Jun 20, 2017 Time Seen by Provider: 00:20 Initial Comments Patient presents to the ER by private conveyance with a chief complaint that tonight she started experiencing some pain in her mid to low back that has radiated around to her epigastric region as well as to her bilateral inguinal regions. The pain is a little bit worse on the left side of her back in the right. She's had some painful urination. She says she doesn't think she has a UTI because she's not been drinking soda. She has not taken any medications for anything routinely however she did take 1000 mg of Tylenol and help her pain so she came in. In October 2016, 7 months ago she had a sleeve gastrectomy done by Dr. Villalba but because of a recent insurance change she is not able to visit her primary doctor or surgeon until next week. She has a little nausea but she has not vomited. She has no fevers or chills, syncope or weakness. She says she is not eating anything untoward for her sleeve gastrectomy and she is still avoiding NSAIDs per her surgeon's recommendations. She does have some history of chronic back pain off and on but never like this and it never radiates to her groin. She denies a history of kidney stones area and she's had an appendectomy, cholecystectomy and hysterectomy with oophorectomy. Allergies and Home Medications Allergies Coded Allergies: No Known Drug Allergies (Unverified , 11/10/16) Home Medications No Active Prescriptions or Reported Meds Patient Home Medication List Home Medication List Reviewed: Yes Review of Systems Constitutional: No chills, No diaphoresis, No fever, No malaise EENTM: No Blurred Vision, No Double Vision Respiratory: Denies Cough, Denies Shortness of Air Cardiovascular: Denies Chest Pain, Denies Edema Gastrointestinal: See HPI, Denies Abdomen Distended, Abdominal Pain, Nausea, Denies Vomiting Genitourinary: Burning, Denies Discharge, Denies Frequency, Flank Pain (L) Musculoskeletal: see HPI, back pain, No joint pain Skin: No pruritus, No rash Psychiatric/Neurological: Denies Headache, Denies Numbness Past Moxdtgf-Wjjlui-Dcizyb Hx Patient Social History Alcohol Use: Denies Use Recreational Drug Use: No Smoking Status: Never a Smoker 2nd Hand Smoke Exposure: No Recent Foreign Travel: No Contact w/Someone Who Travel: No Recent Infectious Disease Expo: No Recent Hopitalizations: No Immunizations Up To Date Date of Influenza Vaccine: Jan 25, 2015 Seasonal Allergies Seasonal Allergies: No Surgeries History of Surgeries: Yes (LEFT KNEE X2 SCOPE, RIGHT KNEE SCOPE) Surgeries: Appendectomy, Section, Gallbladder, Hysterectomy, Oophorectomy, Orthopedic, Tubal Ligation Respiratory History of Respiratory Disorde: No Cardiovascular History of Cardiac Disorders: Yes Cardiac Disorders: High Cholesterol Neurological History of Neurological Disord: No Reproductive System : No Hx Reproductive Disorders: Yes (X1 MISCARRIAGE, 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 mass) Sexually Transmitted Disease: No HIV/AIDS: No Female Reproductive Disorders: Denies ROLL HAND 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 Genitourinary History of Genitourinary Disor: No Gastrointestinal History of Gastrointestinal Di: Yes Gastrointestinal Disorders: Chronic Diarrhea, Irritable Bowel Musculoskeletal History of Musculoskeletal Dis: No Endocrine History of Endocrine Disorders: No Endocrine Disorders: Diabetes, Non-Insulin dep HEENT History of HEENT Disorders: No Loss of Vision: Bilateral Hearing Impairment: Denies Cancer History of Cancer: No Psychosocial History of Psychiatric Problem: Yes Behavioral Health Disorders: Anxiety Integumentary History of Skin or Integumenta: No Blood Transfusions History of Blood Disorders: No Adverse Reaction to a Blood Tr: No Family Medical History Significant Family History: No Pertinent Family Hx Physical Exam Vital Signs VS - Last 72 Hours, by Label 06/20/17 00:17 Temp 96.9 Pulse 105 Resp 18 B/P (MAP) 140/87 (104) Pulse Ox 97 O2 Delivery Room Air Capillary Refill : Less Than 3 Seconds General Appearance: WD/WN, no apparent distress HEENT: PERRL/EOMI, pharynx normal (mucosa is moist) Respiratory: chest non-tender, lungs clear, normal breath sounds, no respiratory distress, no accessory muscle use Cardiovascular: normal peripheral pulses, regular rate, rhythm Peripheral Pulses: 2+ Radial Pulses (R), 2+ Radial Pulses (L) Gastrointestinal: normal bowel sounds, soft, tenderness (epigastric as well as modest tenderness in the left inguinal canal region without significant bulge or mass. There may be a mild indirect hernia palpable when she coughs.) Extremities: non-tender, normal inspection, no pedal edema, normal capillary refill Back: normal inspection, CVA tenderness (L), vertebral tenderness (lower thoracic and upper lumbar midline and left of midline tenderness to palpation) 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: alert, oriented x 3 Progress/Results/Core Measures Results/Orders Lab Results Laboratory Tests Test 06/20/17 00:25 06/20/17 00:27 Range/Units Urine Color DARLIN H Urine Clarity SLIGHTLY CLOUDY Urine pH 5 5-9 Urine Specific [place] 1.025 H 1.016-1.022 Urine Protein 2+ H NEGATIVE Urine Glucose (UA) NEGATIVE NEGATIVE Urine Ketones NEGATIVE NEGATIVE Urine Nitrite NEGATIVE NEGATIVE Urine Bilirubin 1+ H NEGATIVE Urine Urobilinogen 4 H NORMAL MG/DL Urine Leukocyte Esterase 1+ H NEGATIVE Urine RBC (Auto) NEGATIVE NEGATIVE Urine RBC NONE /HPF Urine WBC 0-2 /HPF Urine Squamous Epithelial Cells 2-5 /HPF Urine Crystals NONE /LPF Urine Bacteria MODERATE H /HPF Urine Casts NONE /LPF Urine Mucus LARGE H /LPF Urine Culture Indicated YES White Blood Count 3.2 L 4.3-11.0 10^3/uL Red Blood Count 4.58 4.35-5.85 10^6/uL Hemoglobin 13.2 11.5-16.0 G/DL Hematocrit 39 35-52 % Mean Corpuscular Volume 84 80-99 FL Mean Corpuscular Hemoglobin 29 25-34 PG Mean Corpuscular Hemoglobin Concent 34 32-36 G/DL Red Cell Distribution Width 14.9 H 10.0-14.5 % Platelet Count 157 130-400 10^3/uL Mean Platelet Volume 9.4 7.4-10.4 FL Neutrophils (%) (Auto) 55 42-75 % Lymphocytes (%) (Auto) 31 12-44 % Monocytes (%) (Auto) 12 0-12 % Eosinophils (%) (Auto) 0 0-10 % Basophils (%) (Auto) 1 0-10 % Neutrophils # (Auto) 1.8 1.8-7.8 X 10^3 Lymphocytes # (Auto) 1.0 1.0-4.0 X 10^3 Monocytes # (Auto) 0.4 0.0-1.0 X 10^3 Eosinophils # (Auto) 0.0 0.0-0.3 10^3/uL Basophils # (Auto) 0.0 0.0-0.1 10^3/uL Sodium Level 135 135-145 MMOL/L Potassium Level 3.9 3.6-5.0 MMOL/L Chloride Level 105 98-107 MMOL/L Carbon Dioxide Level 23 21-32 MMOL/L Anion Gap 7 5-14 MMOL/L Blood Urea Nitrogen 13 7-18 MG/DL Creatinine 0.75 0.60-1.30 MG/DL Estimat Glomerular Filtration Rate > 60 BUN/Creatinine Ratio 17 Glucose Level 104 70-105 MG/DL Calcium Level 8.9 8.5-10.1 MG/DL Total Bilirubin 0.7 0.1-1.0 MG/DL Aspartate Amino Transf (AST/SGOT) 39 H 5-34 U/L Alanine Aminotransferase (ALT/SGPT) 28 0-55 U/L Alkaline Phosphatase 61 40-136 U/L C-Reactive Protein High Sensitivity 1.14 H 0.00-0.50 MG/DL Total Protein 7.8 6.4-8.2 GM/DL Albumin 4.1 3.2-4.5 GM/DL My Orders Orders - JEREMY MAC Ua Culture If Indicated (06/20/17 00:14) Fentanyl Injection (Sublimaze Injection (06/20/17 00:30) Ct Abdomen/Pelvis W Wo (06/20/17 00:23) Saline Lock/Iv-Start (06/20/17 00:23) Lactated Ringers (Lr 1000 Ml Iv Solution (06/20/17 00:23) Cbc With Automated Diff (06/20/17 00:23) Comprehensive Metabolic Panel (06/20/17 00:23) Hs C Reactive Protein (06/20/17 00:23) Ondansetron Injection (Zofran Injectio (06/20/17 00:30) Urine Culture (06/20/17 00:25) Medications Given in ED Current Medications Medications Dose Ordered Sig/Rachelle Route Start Time Stop Time Status Last Admin Dose Admin Fentanyl Citrate 50 mcg ONCE ONCE IVP 06/20/17 00:30 06/20/17 00:31 DC 06/20/17 00:28 50 MCG Lactated Ringer's 1,000 ml @ 0 mls/hr Q0M ONCE IV 06/20/17 00:23 06/20/17 00:25 DC 06/20/17 00:34 0 MLS/HR Ondansetron HCl 4 mg ONCE ONCE IVP 06/20/17 00:30 06/20/17 00:32 DC 06/20/17 00:34 4 MG Vital Signs/I&O Vital Sign - Last 12Hours 06/20/17 00:17 Temp 96.9 Pulse 105 Resp 18 B/P (MAP) 140/87 (104) Pulse Ox 97 O2 Delivery Room Air Blood Pressure Mean: 104 Progress Note : Time: 00:37 Progress Note Patient's symptoms are little bit out of proportion to physical examination however with her recent sleeve gastrectomy in her symptoms as reasonable to consider things such as a urinary tract infection by kidney stone followed by possible issues with the sleeve gastrectomy therefore will get a urinalysis some basic labs to evaluate for infection versus dysfunction and a CT scan of the abdomen and pelvis with and without contrast so we can look for kidney stones as well as properly evaluate the recent sleeve gastrectomy. Diagnostic Imaging Diagonstic Imaging: CT Plain Films/CT/US/NM/MRI: abdomen, pelvis Comments Sleeve gastrectomy seen. Gallbladder missing. No acute findings. No evidence of pyelonephritis. Reviewed: Reviewed by Me Departure Impression Impression: Primary Impression: UTI (urinary tract infection) Qualified Codes: N30.00 - Acute cystitis without hematuria Disposition: HOME, SELF-CARE Condition: Stable Departure-Patient Inst. Decision time for Depature: 01:15 Referrals: ROLY POPE DO (PCP) Primary Care Physician SARAHI ERVIN APRN (Family) Primary Care Physician Patient Instructions: Acute Cystitis (DC) Add. Discharge Instructions: Increased frequency of fluids or drinking. Try to urinate several times throughout the day. You can use a dye called AZO for Pyridium caec-fnx-mjjroef for the pain of urinary tract infection. The antibiotic should start helping usually by day 3 or 4. If you don't feel like improving by then make an appointment to follow up with primary care physician. You are having new, worrisome or worsening symptoms you should return to care sooner. All discharge instructions reviewed with patient and/or family. Voiced understanding. Scripts Nitrofurantoin Monohyd/M-Cryst (Macrobid 100 mg Capsule) 100 Mg Capsule 1 TAB PO BID for 5 Days, #10 CAP 0 Refills Prov: JEREMY MAC 06/20/17 Work/School Note: Work Release Form Date Seen in the Emergency Department: Jun 20, 2017 Return to Work: Jun 21, 2017 Restrictions: No Restrictions Copy Copies To 1: ROLY POPE TITUS J Jun 20, 2017 00:30
[2017-06-20 00:31] LABS: CLARITY,URINE SLIGHTLY CLOUDY; COLOR,URINE AMBER; GLUCOSE, URINE (UA) NEGATIVE (NEGATIVE); KETONES,URINE NEGATIVE (NEGATIVE); LEUKOCYTE ESTERASE ,URINE 1+ (NEGATIVE); NITRITE,URINE NEGATIVE (NEGATIVE); PH,URINE 5 (5-9); PROTEIN,URINE 2+ (NEGATIVE); UROBILINOGEN,URINE 4 MG/DL (NORMAL)
[2017-06-20 00:42] LABS: BASOPHILS % (AUTO) 1 % (0-10); EOSINOPHILS % (AUTO) 0 % (0-10); HEMATOCRIT 39 % (35-52); HEMOGLOBIN 13.2 G/DL (11.5-16.0); LYMPHOCYTES % (AUTO) 31 % (12-44); MEAN CORPUSCULAR HEMOGLOBIN 29 PG (25-34); MEAN CORPUSCULAR HGB CONC 34 G/DL (32-36); MEAN CORPUSCULAR VOLUME 84 FL (80-99); MEAN PLATELET VOLUME 9.4 FL (7.4-10.4); MONOCYTES # (AUTO) 0.4 X 10^3 (0.0-1.0); MONOCYTES % (AUTO) 12 % (0-12); NEUTROPHILS # (AUTO) 1.8 X 10^3 (1.8-7.8); NEUTROPHILS % (AUTO) 55 % (42-75); PLATELET COUNT 157 10^3/uL (130-400); RED BLOOD COUNT 4.58 10^6/uL (4.35-5.85); RED CELL DISTRIBUTION WIDTH 14.9 % (10.0-14.5); WHITE BLOOD COUNT 3.2 10^3/uL (4.3-11.0)
[2017-06-20 00:45] LABS: BACTERIA,URINE MODERATE /HPF; BILIRUBIN,URINE 1+ (NEGATIVE); WBC,URINE 0-2 /HPF
[2017-06-20 01:00] LABS: ALANINE AMINOTRANSFERASE 28 U/L (0-55); ALBUMIN 4.1 GM/DL (3.2-4.5); ALKALINE PHOSPHATASE 61 U/L (40-136); BILIRUBIN,TOTAL 0.7 MG/DL (0.1-1.0); BUN/CREATININE RATIO 17; CALCIUM 8.9 MG/DL (8.5-10.1); CARBON DIOXIDE 23 MMOL/L (21-32); CHLORIDE 105 MMOL/L (98-107); CREATININE SERUM 0.75 MG/DL (0.60-1.30); GFR ESTIMATED > 60; GLUCOSE 104 MG/DL (70-105); POTASSIUM 3.9 MMOL/L (3.6-5.0); SODIUM 135 MMOL/L (135-145); TOTAL PROTEIN 7.8 GM/DL (6.4-8.2)
[2017-06-20] MEDS ORDERED: NITR-65 PO (01:17)
[2017-06-20] MEDS ORDERED: RX-NITROFURANTOIN 100 MG (MACROBID) CAP PPK#2 PO STA (01:18)
[2017-06-20 01:31] VITALS: BP 98/61
--- NOTE | 2017-06-20 07:25 | Diagnostic Imaging Report ---
PROCEDURE: CT abdomen and pelvis with and without contrast. TECHNIQUE: Precontrast acquisitions were acquired through the abdomen and pelvis. Multiple contiguous axial images were obtained through the abdomen and pelvis after the administration of intravenous contrast. INDICATION: Abdominal pain and back pain Note is made of an approximately 0.3 cm in diameter nodule in the posterior lateral right lung base. This is not definitely seen on the previous study of 07/21/2016. Spleen is at the upper limits of normal for size. There has been surgical change at the level of the stomach. No focal hepatic abnormality is identified. Gallbladder surgically absent. No pancreatic or adrenal gland lesion is identified and the kidneys are unremarkable bilaterally. There is no free fluid in the abdomen or pelvis and no pathologically enlarged adenopathy is detected. There has been reduction in overall size of left adnexal region cyst which now measures 3.7 x 2.5 cm. The bladder is not opacified for complete evaluation. IMPRESSION: A 0.3 cm nodule in the right lower lobe has developed since 07/21/2016. Consideration could be given to followup thoracic CT for assessment. There has been interval surgery at the level of the stomach without definite complication. There is mild splenomegaly and decreasing size of left adnexal region cyst. Clinical correlation would be useful. Pelvic ultrasonography may be of value for further characterization. Dictated by: Dictated on workstation # [id number]
== END 2017-06-20 01:25 | disposition home or self-care (01) ==
LOC: EDUNIT# 00:09 → ER 00:12
DX: N39.0 Urinary tract infection, site not specified (principal); E78.00 Pure hypercholesterolemia, unspecified; E11.9 Type 2 diabetes mellitus without complications; F41.9 Anxiety disorder, unspecified; Z87.19 Personal history of other diseases of the digestive system; Z87.448 Personal history of other diseases of urinary system; Z98.84 Bariatric surgery status; Z90.49 Acquired absence of other specified parts of digestive tract; Z87.59 Personal history of other complications of pregnancy, childbirth and the puerperium; Z90.710 Acquired absence of both cervix and uterus; Z98.51 Tubal ligation status
CPT/HCPCS: 36415; 74178; 80053; 81000; 85025; 86141; 87088; 96361; 96374; 96375

== ENCOUNTER 2017-07-24 05:35 | Outpatient (CLI) | payer SELFPAY ==
[~2017-07-24] VITALS: Ht 157.5 cm; Wt 71.2 kg
[~2017-07-24 05:35] MED LIST changes: -METF500T4 PO; +METF500T5 PO; +NITR-65 PO
== END 2017-07-24 13:32 ==
LOC: PREOP 05:35
PROVIDERS: ATTEND Surgery
DX: Z01.818 Encounter for other preprocedural examination (principal); Z12.11 Encounter for screening for malignant neoplasm of colon; Z80.0 Family history of malignant neoplasm of digestive organs

== ENCOUNTER 2017-07-26 11:13 | Day surgery (SDC) | payer OTHER ==
[~2017-07-26] VITALS: Ht 157.5 cm; Wt 71.2 kg
[2017-07-26] MEDS ORDERED: NS IV 500 ML 500 ML IV PRN (11:20)
[2017-07-26] MEDS ORDERED: NS IV 500 ML 500 ML ONE (11:27)
[2017-07-26] MEDS ORDERED: LIDOCAINE JELLY 2% (XYLOCAINE) 5 ML TUBE MM PRN (11:30)
[2017-07-26] MEDS ORDERED: FLUMAZENIL (ROMAZICON) 0.1 MG/ML 5 ML VIAL INJ PRN (11:30)
[2017-07-26] MEDS ORDERED: NALOXONE 0.4 MG/ML 1 ML (NARCAN) VIAL IVP PRN (11:30)
--- NOTE | 2017-07-26 12:20 | Conscious Sedation/ASA ---
Conscious Sedation Pre-Proced Time Reviewed: 12:00 ASA Class: 2 Airway Mallampati Classification: ([place] appropriate class) I. II. III, IV Lungs Heart ASA score ASA 1: a normal healthy patient ASA 2: a patient with a mild systemic disease (mid diabetes, controlled hypertension, obesity ASA 3: a patient with a severe systemic disease that limits activity (angina , COPD, prior Myocardial infarction) ASA 4: a patient with an incapacitating disease that is a constant threat to life (CHF, renal failure) ASA 5: a moribund patient not expected to survive 24 hrs. (ruptured aneurysm) ASA 6: a declared brain patient whose organs are being harvested. For emergent operations, add the letter E after the classification Grade 2 Sedation Plan: Analgesia, Amnesia, Plan communicated to team members, Discussed options with patient/fam, Discussed risks with patient/fam Note The patient is an appropriate candidate to undergo the planned procedure, sedation, and anesthesia. The patient immediately re-assessed prior to indication. WATSON PAINTER MD July 26, 2017 12:20 pm
--- NOTE | 2017-07-26 12:21 | Progress Note-Pre Operative ---
Pre-Operative Progress Note H&P Reviewed The H&P was reviewed, patient examined and no changes noted. Date Seen by Provider: July 26, 2017 Time Seen by Provider: 12:00 Date H&P Reviewed: July 26, 2017 Time H&P Reviewed: 12:00 Pre-Operative Diagnosis: family hx colon ca WATSON PAINTER MD July 26, 2017 12:21 pm
[2017-07-26 12:23] VITALS: BP 114/75
[2017-07-26] MEDS ORDERED: ACETAMINOPHEN 325 MG TABLET/CAPLET (TYLENOL) PO PRN (12:30)
[2017-07-26] MEDS ORDERED: ONDANSETRON 4 MG/2 ML (SDV) Z0FRAN IV PRN (12:30)
[2017-07-26] MEDS ORDERED: morphine INJ 10 MG/ML 1ML (SYR OR VIAL) IV PRN (12:30)
[2017-07-26] MEDS ORDERED: HYDROcodone/APAP 5 MG/325 MG (LORTAB) TAB PO PRN (12:30)
[2017-07-26] MEDS ORDERED: MIDAZOLAM 2 MG/2 ML (VERSED) VIAL ONE ×4 (13:10)
[2017-07-26] MEDS ORDERED: ONDANSETRON 4 MG/2 ML (SDV) Z0FRAN ONE (13:15)
[2017-07-26] MEDS: fentaNYL INJECTION 100 MCG/2 ML AMP IVP PRN ×4 (13:25→13:43)
[2017-07-26] MEDS: MIDAZOLAM 2 MG/2 ML (VERSED) VIAL IVP PRN ×4 (13:27→13:41)
[2017-07-26] MEDS ORDERED: fentaNYL INJECTION 100 MCG/2 ML AMP ONE (13:36)
[2017-07-26 14:10] VITALS: BP 107/63
--- NOTE | 2017-07-26 14:10 | Progress Note-Post Operative ---
Post-Operative Progess Note Surgeon (s)/Brim Stretching Machine Operator (s) Surgeon WATSON PAINTER MD Brim Stretching Machine Operator: none Pre-Operative Diagnosis family hx colon ca Post-Operative Diagnosis chronic stage 1 ext and int hemorrhoids. Procedure & Operative Findings Date of Procedure 07/26/17 Procedure Performed/Findings Colonoscopy. Anesthesia Type CS Estimated Blood Loss Estimated blood loss (mL): minimal Specimens/Packing Specimens Removed none WATSON PAINTER MD July 26, 2017 2:10 pm
--- NOTE | 2017-07-26 14:13 | Discharge Inst-Surgical ---
D/C Lap Instructions-INOCENCIO Follow Up 5 years Activity as tolerated High Fiber Diet 25g or more per day Avoid Alcohol, Caffeine, Spicy [place] and Acid foods. Drink 64 fluid oz or more of fluids per day. Symptoms to Report: Fever over 101 degree F, Nausea/Vomiting If any problems/questions: Contact your physician or go to Emergency Room WATSON PAINTER MD July 26, 2017 2:13 pm
[2017-07-26 14:35] VITALS: BP 106/73
[2017-07-26 14:40] VITALS: BP 106/73
--- OUTSIDE RECORDS SUMMARY | 2017-07-26 18:36 | XMS REPORT ---
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 Active 213039788 Problem Breast tenderness N64.4 Active 49970439 Problem Unspecified mood [affective] disorder F39 Active 14815786 Problem Anxiety state, unspecified F41.1 Active 280433430 ALLERGIES No Information ENCOUNTERS Encounter Location Date Diagnosis [facility] [address] [address] 21 Apr, 2017 Cough R05 and Influenza J11.1 [facility] [address] [place] [address]74- 3033 06 Apr, 2017 Screening breast examination Z12.31 ; Breast tenderness in female N64.4 ; Other obesity due to excess calories E66.09 and Body mass index ( BMI) of 31.0-31.9 in adult Z68.31 [facility] [id number] [place] [address]140 Apr, Gastroenteritis K52.9 [facility] [address] [id number] Mar, Dental examination Z01.20 and Dental caries K02.9 [facility] [address] [address] 13 Feb, 2017 Gum abscess K05.219 [facility] [address] [place] [address] Feb, [facility] [id number] [place] [address] 90467- 0164 Dec, Varicosities I86.8 [place] [id number] [place] [address] 07131- 4817 Sep, [place] [address] [address]- [address] Sep, [place] [address] [address]- 3[address] Sep, Anxiety state, unspecified F41.1 [place] [address] 9[address]00- 9235 Aug, Unspecified mood [affective] disorder F39 and Eating disorder, unspecified F50.9 [place] [address] 26654- 4346 Aug, Anxiety state, unspecified F41.1 [place] [id number] [place] [address] 00854- 6655 Jun, [place] [address] 19160- 6261 Jun, Fatigue, unspecified type R53.83 [place] [id number] [place] [address] 65720- 2999 Jun, Abdominal pain, left lower quadrant R10.32 ; Candidiasis, cutaneous B37.2 ; Fatigue, unspecified type R53.83 ; Morbid (severe) obesity due to excess calories E66.01 ; General medical exam Z00.00 and Diverticulitis of large intestine without perforation or abscess without bleeding K57.32 [facility] [id number] [place] [address]259 -6033 May, Left wrist pain M25.532 and Left wrist sprain, initial encounter S63.502A [place] [address] 7[address]01- 6474 02 May, 2016 General medical exam Z00.00 [place] [facility] [id number] [place] [address] 93301- 5058 12 Mar, 2016 Encounter for routine adult health examination with abnormal findings Z00.01 ; Body mass index (BMI) of 40.0-44.9 in adult Z68.41 ; Morbid (severe) obesity due to excess calories E66.01 ; History of IBS Z87.19 and Family history of colon cancer requiring screening colonoscopy Z80.0 [place] [address] [address]- [address]41 30 Oct, 2015 [place] [address] 94380- 6527 Oct, Other acute postprocedural pain G89.18 ; Pain in left knee M25.562 ; Family history of colon cancer requiring screening colonoscopy Z80.0 and Hyperpigmentation L81.9 [place] [address] 43082- 2060 May, [place] [address] 92021- 5576 May, Left knee injury S89.92XA [place] [address] 05513- 5886 Apr, [place] [id number] [place] [address] 92496- 4721 Apr, Left knee injury S89.92XA and Varicosities 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 [place] [id number] [place] [address] 78245- 2280 Mar, [facility] [address] [address]30 [address]73 Mar, Acute pain of left knee M25.562 and Strain of left knee, initial encounter S86.912A [place] [address] 82249- 7154 Mar, Lower abdominal tenderness R10.819 and Breast tenderness N64.4 [place] [id number] [place] [address] 06415- 2432 Feb, [place] [id number] [place] [address] 56422- 1830 Feb, Well woman exam Z01.419 ; Vaginal [...] and Complex cyst of left ovary N83.29 [place] [id number] [place] [address] 31683- 2480 16 Feb, 2015 Abdominal pain R10.9 and Pelvic pain R10.2 [place] [id number] [place] [address] 41906- 9786 Feb, [place] [id number] [place] [address] 18776- 7262 Feb, [place] [id number] [place] [address] 26565- 9545 Feb, General medical exam Z00.00 ; Right upper quadrant pain R10.11 and History of borderline diabetes mellitus Z87.898 [place] [id number] [place] [address] 91641- 9002 Feb, Right upper quadrant pain R10.11 [place] [address] 24431- 1084 28 Jun, 2014 Lumbago 724.2 [place] [id number] [place] [address] 35006- 9029 14 Jun, 2014 [place] [address] [facility] [id number] [place] [address]- 4484 Jun, [facility] [place] [facility] [address] [id number] [place] [address]- 3144 May, [facility] [place] [facility] [address] [id number] [place] [address]- 5636 May, [facility] [place] [facility] [address] [id number] [place] [address]- 8176 Apr, [facility] [place] [facility] [address] [id number] [place] [address]- 1436 Apr, [facility] [place] [facility] [address] [id number] [place] [address]- 7057 Mar, [facility] [place] [facility] [address] [id number] [place] [address]- 5920 Mar, [facility] [place] [facility] [address] [id number] [place] [address]- 6449 Mar, [facility] [place] [facility] [address] [id number] [place] [address]- 1128 Mar, [facility] [place] [facility] [address] [id number] [place] [address]- 7429 Mar, [facility] [place] [facility] [address] [id number] [place] [address]- 7361 Mar, [facility] [place] [facility] [address] [id number] [place] [address]- 1110 Mar, [facility] [place] [facility] [address] [id number] [place] [address]- 8103 Feb, [facility] [place] [facility] [address] [id number] [place] [address]- 7452 Feb, [facility] [place] [facility] [address] [id number] [place] [address]- 2116 Feb, [facility] [place] [facility] [address] [id number] [place] [address]- 3104 Feb, [facility] [place] [facility] [address] [id number] [place] [address]- 9629 Feb, [facility] [place] [facility] [address] [id number] [place] [address]- 3690 Jan, [facility] [place] [facility] [address] [id number] [place] [address]- 3689 Jan, [facility] [place] [facility] [address] [id number] [place] [address]- 6292 Oct, [facility] [place] [facility] [address] [id number] [place] [address]- 7108 Oct, [facility] [place] [facility] [address] [id number] [place] [address]- 6485 Sep, [facility] [place] [facility] [address] [id number] [place] [address]- 8713 Sep, [facility] [place] [facility] [address] [id number] [place] [address]- 8176 Aug, [facility] [place] [facility] [address] [id number] [place] [address]- 4182 Aug, [facility] [place] [facility] [address] [id number] [place] [address]- 2932 Aug, [facility] [place] [facility] [address] [id number] [address]- 0669 Apr, [facility] [place] [facility] [address] [id number] [place] [address]- 7241 Apr, [facility] [place] [facility] [address] [id number] [place] [address]- 1943 Apr, [facility] [place] [facility] [address] [id number] [place] [address]- 6567 Apr, [facility] [place] [facility] [address] [id number] [place] [address]- 8070 Apr, [facility] [place] [facility] [address] [id number] [place] [address]- 7541 Mar, [facility] [address] [id number] [place] [address]- 7648 Mar, [facility] [address] [id number] [place] [address]- 2748 Mar, [facility] [address] [id number] [place] [address]- 3258 Mar, [facility] [address] [id number] [place] [address]- 8311 Mar, [facility] [address] [id number] [place] [address]- 4213 Mar, [facility] [address] [id number] [place] [address]- 1307 Mar, [facility] [address] [id number] [place] [address]- 2532 Mar, [facility] [address] [id number] [place] [address]- 8450 Mar, [facility] [address] [id number] [place] [address]- 3528 Oct, [facility] [address] [id number] [place] [address]- 5537 July, [facility] [address] [id number] [place] [address]- 1065 July, [facility] [address] [id number] [place] [address]- 4123 Jun, [facility] [place] [facility] [address] [id number] [place] [address]- 9033 May, [facility] [address] [id number] [place] [address]- 3325 Feb, [facility] [address] [id number] [place] [address]- 4201 Feb, [facility] [address] [facility] [id number] [place] [address]- 3346 July, [facility] [address] [facility] [id number] [place] [address]- 0656 Apr, [facility] [address] [facility] [id number] [place] [address]- 8706 Jan, IMMUNIZATIONS No Known Immunizations SOCIAL HISTORY Never Assessed REASON FOR VISIT Letter request PLAN OF CARE VITAL SIGNS MEDICATIONS No Known Medications RESULTS No Results PROCEDURES No Known procedures INSTRUCTIONS MEDICATIONS ADMINISTERED No Known Medications MEDICAL [...]
--- OUTSIDE RECORDS SUMMARY | 2017-07-26 18:37 | XMS REPORT ---
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 Active 726685814 Problem Breast tenderness N64.4 Active 05895959 Problem Unspecified mood [affective] disorder F39 Active 34544012 Problem Anxiety state, unspecified F41.1 Active 187434655 ALLERGIES No Information ENCOUNTERS Encounter Location Date Diagnosis [facility] [address] [address] 21 Apr, 2017 Cough R05 and Influenza J11.1 [facility] [address] [place] [address] 20429- 0497 06 Apr, 2017 Screening breast examination Z12.31 ; Breast tenderness in female N64.4 ; Other obesity due to excess calories E66.09 and Body mass index ( BMI) of 31.0-31.9 in adult Z68.31 [facility] [id number] [place] [address] -7615 Apr, Gastroenteritis K52.9 [facility] [address] [id number] Mar, Dental examination Z01.20 and Dental caries K02.9 [facility] [address] [address] 13 Feb, 2017 Gum abscess K05.219 [facility] [address] [place] [address]- 6922 Feb, [facility] [id number] [place] [address] 69179- 2426 Dec, Varicosities 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 [place] [id number] [place] [address] 54832- 6158 Sep, [place] [address] 34242- 3176 Sep, [place] [address] 54091- 9169 Sep, Anxiety state, unspecified F41.1 [place] [address] 25048- 0461 Aug, Unspecified mood [affective] disorder F39 and Eating disorder, unspecified F50.9 [place] [address] 19003- 0067 Aug, Anxiety state, unspecified F41.1 [place] [id number] [place] [address] 96274- 1989 Jun, [place] [address] 71283- 6947 Jun, Fatigue, unspecified type R53.83 [place] [id number] [place] [address] 96807- 2827 Jun, Abdominal pain, left lower quadrant R10.32 ; Candidiasis, cutaneous B37.2 ; Fatigue, unspecified type R53.83 ; Morbid (severe) obesity due to excess calories E66.01 ; General medical exam Z00.00 and Diverticulitis of large intestine without perforation or abscess without bleeding K57.32 [facility] [id number] [place] [address]67 -9326 May, Left wrist pain M25.532 and Left wrist sprain, initial encounter S63.502A [place] [address] 80743- 6992 02 May, 2016 General medical exam Z00.00 [place] [id number] [place] [address] 08823- 3146 12 Mar, 2016 Encounter for routine adult health examination with abnormal findings Z00.01 ; Body mass index (BMI) of 40.0-44.9 in adult Z68.41 ; Morbid (severe) obesity due to excess calories E66.01 ; History of IBS Z87.19 and Family history of colon cancer requiring screening colonoscopy Z80.0 [place] [address] 36223- 5112 30 Oct, 2015 [place] [address] 98425- 3549 Oct, Other acute postprocedural pain G89.18 ; Pain in left knee M25.562 ; Family history of colon cancer requiring screening colonoscopy Z80.0 and Hyperpigmentation L81.9 [place] [address] 79690- 2780 May, [place] [address] 72251- 5335 May, Left knee injury S89.92XA [place] [address] 17024- 9310 Apr, [place] [id number] [place] [address] 80488- 1879 Apr, Left knee injury S89.92XA and Varicosities I86.8 [place] [id number] [place] [address] 32000- 2821 Mar, [facility] [address] 7[address] -8324 Mar, Acute pain of left knee M25.562 and Strain of left knee, initial encounter S86.912A [place] [address] 49364- 9439 Mar, Lower abdominal tenderness R10.819 and Breast tenderness N64.4 [place] [id number] [place] [address] 24349- 5018 Feb, [place] [id number] [place] [address] 43967- 1560 Feb, Well woman exam Z01.419 ; Vaginal [...] and Complex cyst of left ovary N83.29 [place] [id number] [place] [address] 39643- 4740 16 Feb, 2015 Abdominal pain R10.9 and Pelvic pain R10.2 [place] [id number] [place] [address] 67325- 2108 Feb, [place] [id number] [place] [address] 87286- 2917 Feb, [place] [id number] [place] [address] 45676- 0533 Feb, General medical exam Z00.00 ; Right upper quadrant pain R10.11 and History of borderline diabetes mellitus Z87.898 [place] [id number] [place] [address] 67697- 3636 Feb, Right upper quadrant pain R10.11 [place] [address] 35644- 9041 28 Jun, 2014 Lumbago 724.2 [place] [id number] [place] [address] 01382- 4236 14 Jun, 2014 [place] [address] [facility] [id number] [place] [address]- 0869 Jun, [facility] [place] [facility] [address] [id number] [place] [address]- 1126 May, [facility] [place] [facility] [address] [id number] [place] [address]- 1246 May, [facility] [place] [facility] [address] [id number] [place] [address]- 7386 Apr, [facility] [place] [facility] [address] [id number] [place] [address]- 8136 Apr, [facility] [place] [facility] [address] [id number] [place] [address]- 7725 Mar, [facility] [place] [facility] [address] [id number] [place] [address]- 0775 Mar, [facility] [place] [facility] [address] [id number] [place] [address]- 9481 Mar, [facility] [place] [facility] [address] [id number] [place] [address]- 0684 Mar, [facility] [place] [facility] [address] [id number] [place] [address]- 8510 Mar, [facility] [place] [facility] [address] [id number] [place] [address]- 9668 Mar, [facility] [place] [facility] [address] [id number] [place] [address]- 0653 Mar, [facility] [place] [facility] [address] [id number] [place] [address]- 9379 Feb, [facility] [place] [facility] [address] [id number] [place] [address]- 2903 Feb, [facility] [place] [facility] [address] [id number] [place] [address]- 0206 Feb, [facility] [place] [facility] [address] [id number] [place] [address]- 1690 Feb, [facility] [place] [facility] [address] [id number] [place] [address]- 7097 Feb, [facility] [place] [facility] [address] [id number] [place] [address]- 9180 Jan, [facility] [place] [facility] [address] [id number] [place] [address]- 6754 Jan, [facility] [place] [facility] [address] [id number] [place] [address]- 9403 Oct, [facility] [place] [facility] [address] [id number] [place] [address]- 6398 Oct, [facility] [place] [facility] [address] [id number] [place] [address]- 5729 Sep, [facility] [place] [facility] [address] [id number] [place] [address]- 6583 Sep, [facility] [place] [facility] [address] [id number] [place] [address]- 0595 Aug, [facility] [place] [facility] [address] [id number] [place] [address]- 9827 Aug, [facility] [place] [facility] [address] [id number] [place] [address]- 0852 Aug, [facility] [place] [facility] [address] [id number], [place] [address]- 3498 Apr, [facility] [place] [facility] [address] [id number], [place] [address]- 2659 Apr, [facility] [place] [facility] [address] [id number] [place] [address]- 3120 Apr, [facility] [place] [facility] [address] [id number] [place] [address]- 6057 Apr, [facility] [place] [facility] [address] [id number] [place] [address]- 3522 Apr, [facility] [place] [facility] [address] [id number] [place] [address]- 7857 Mar, [facility] [address] [id number] [place] [address]- 5098 Mar, [facility] [address] [id number] [place] [address]- 7690 Mar, [facility] [address] [id number] [place] [address]- 2422 Mar, [facility] [address] [id number] [place] [address]- 7809 Mar, [facility] [address] [id number] [place] [address]- 8333 Mar, [facility] [address] [id number] [place] [address]- 2481 Mar, [facility] [address] [id number] [place] [address]- 3426 Mar, [facility] [address] [id number] [place] [address]- 9590 Mar, [facility] [address] [id number] [place] [address]- 5054 Oct, [facility] [address] [id number] [place] [address]- 0684 July, [facility] [address] [id number] [place] [address]- 6016 July, [facility] [address] [id number] [place] [address] Jun, [facility] [place] [facility] [address] [id number] [place] [address] May, [facility] [address] [id number] [place] [address] Feb, [facility] [address] [id number] [place] [address] Feb, [facility] [place] [address] [facility] [id number] [place] [address] July, [facility] [place] [address] [facility] [id number], [place] [address] Apr, [facility] [place] [address] [facility] [id number] [place] [address] Jan, IMMUNIZATIONS No Known Immunizations SOCIAL HISTORY Never Assessed REASON FOR VISIT Psychological evaluation for bariatric surgery. PLAN OF CARE Activity Details Follow Up prn Reason: VITAL SIGNS MEDICATIONS No Known Medications RESULTS No Results PROCEDURES Procedure Date Ordered Result Body Site Psych diagnostic evaluation, established patient September 09, 2016 INSTRUCTIONS MEDICATIONS ADMINISTERED No Known Medications [...]
--- OUTSIDE RECORDS SUMMARY | 2017-07-26 18:39 | XMS REPORT ---
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 Active 469906058 Problem Breast tenderness N64.4 Active 43476758 Problem Unspecified mood [affective] disorder F39 Active 59633803 Problem Anxiety state, unspecified F41.1 Active 923815032 ALLERGIES No Information ENCOUNTERS Encounter Location Date Diagnosis [facility] [address] [address] 21 Apr, 2017 Cough R05 and Influenza J11.1 [facility] [address] [place] [address] 06 Apr, 2017 Screening breast examination Z12.31 ; Breast tenderness in female N64.4 ; Other obesity due to excess calories E66.09 and Body mass index ( BMI) of 31.0-31.9 in adult Z68.31 [facility] [id number] [place] [address] Apr, Gastroenteritis K52.9 [facility] [address] [id number] Mar, Dental examination Z01.20 and Dental caries K02.9 [facility] [address] [address] 13 Feb, 2017 Gum abscess K05.219 [facility] [address] [place] [address] Feb, [facility] [id number] [place] [address] Dec, Varicosities I86.8 [place] [id number] [place] [address] Sep, [place] [address] [address] Sep, [place] [address] [address] Sep, Anxiety state, unspecified F41.1 [place] [address] [address] Aug, Unspecified mood [affective] disorder F39 and Eating disorder, unspecified F50.9 [place] [address] [address] Aug, Anxiety state, unspecified F41.1 [place] [id number] [place] [address] Jun, [place] [address] [address] Jun, Fatigue, unspecified type R53.83 [place] [id number] [place] [address] Jun, Abdominal pain, left lower quadrant R10.32 ; Candidiasis, cutaneous B37.2 ; Fatigue, unspecified type R53.83 ; Morbid (severe) obesity due to excess calories E66.01 ; General medical exam Z00.00 and Diverticulitis of large intestine without perforation or abscess without bleeding K57.32 [facility] [id number] [place] [address] May, Left wrist pain M25.532 and Left wrist sprain, initial encounter S63.502A [place] [address] [address] 02 May, 2016 General medical exam Z00.00 [place] [id number] [place] [address] 12 Mar, 2016 Encounter for routine adult health examination with abnormal findings Z00.01 ; Body mass index (BMI) of 40.0-44.9 in adult Z68.41 ; Morbid (severe) obesity due to excess calories E66.01 ; History of IBS Z87.19 and Family history of colon cancer requiring screening colonoscopy Z80.0 [place] [address] [address] 30 Oct, 2015 [place] [address] [address] Oct, Other acute postprocedural pain G89.18 ; Pain in left knee M25.562 ; Family history of colon cancer requiring screening colonoscopy Z80.0 and Hyperpigmentation L81.9 [place] [address] [address] May, [place] [address] [address] May, Left knee injury S89.92XA [place] [address] [address] Apr, [place] [id number] [place] [address] Apr, Left knee injury S89.92XA and Varicosities I86.8 [place] [id number] [place] [address] Mar, [facility] [address] [address] Mar, Acute pain of left knee M25.562 and Strain of left knee, initial encounter S86.912A [place] [address] [address] Mar, Lower abdominal tenderness R10.819 and Breast tenderness N64.4 [place] [id number] [place] [address] Feb, [place] [id number] [place] [address] Feb, Well woman exam Z01.419 ; Vaginal [...] and Complex cyst of left ovary N83.29 [place] [id number] [place] [address] 16 Feb, 2015 Abdominal pain R10.9 and Pelvic pain R10.2 [place] [id number] [place] [address] Feb, [place] [id number] [place] [address]- [address] Feb, [place] [id number] [place] [address]- [address] Feb, General medical exam Z00.00 ; Right upper quadrant pain R10.11 and History of borderline diabetes mellitus Z87.898 [place] [id number] [place] [address]- [address] Feb, Right upper quadrant pain R10.11 [place] [address] [address] 28 Jun, 2014 Lumbago 724.2 [place] [id number] [place] [address] 14 Jun, 2014 [place] [address] [facility] [id number] [place] [address] Jun, [facility] [place] [facility] [address] [id number] [place] [address] May, [facility] [place] [facility] [address] [id number] [place] [address] May, [facility] [place] [facility] [address] [id number] [place] [address] Apr, [facility] [place] [facility] [address] [id number] [place] [address] 235[address] Apr, [facility] [place] [facility] [address] [id number] [place] [address] Mar, [facility] [place] [facility] [address] [id number] [place] [address] Mar, [facility] [place] [facility] [address] [id number] [place] [address] Mar, [facility] [place] [facility] [address] [id number] [place] [address] Mar, [facility] [place] [facility] [address] [id number] [place] [address] Mar, [facility] [place] [facility] [address] [id number] [place] [address] Mar, [facility] [place] [facility] [address] [id number] [place] [address] Mar, [facility] [place] [facility] [address] [id number] [place] [address] Feb, [facility] [place] [facility] [address] [id number] [place] [address] Feb, [facility] [place] [facility] [address] [id number] [place] [address] Feb, [facility] [place] [facility] [address] [id number] [place] [address]- 17[address] Feb, [facility] [place] [facility] [address] [id number] [place] [address] Feb, [facility] [place] [facility] [address] [id number] [place] [address]- [address] Jan, [facility] [place] [facility] [address] [id number] [place] [address]- 8679 Jan, [facility] [place] [facility] [address] [id number] [place] [address]- [address] Oct, [facility] [place] [facility] [address] [id number] [place] [address]- 5514 Oct, [facility] [place] [facility] [address] [id number] [place] [address]- 6[address] Sep, [facility] [place] [facility] [address] [id number] [place] [address]- [address] Sep, [facility] [place] [facility] [address] [id number] [place] [address]- [address] Aug, [facility] [place] [facility] [address] [id number] [place] [address]- 59[address] Aug, [facility] [place] [facility] [address] [id number] [place] [address]- [address] Aug, [facility] [place] [facility] [address] [id number] [address] Apr, [facility] [place] [facility] [address] [id number] [place] [address] Apr, [facility] [place] [facility] [address] [id number] [place] [address]- 7[address] Apr, [facility] [place] [facility] [address] [id number] [place] [address]- 4666 Apr, [facility] [place] [facility] [address] [id number] [place] [address]- 6689 Apr, [facility] [place] [facility] [address] [id number] [place] [address]- 3205 Mar, [facility] [address] [id number] [place] [address]- 1836 Mar, [facility] [address] [id number] [place] [address]- [address] Mar, [facility] [address] [id number] [place] [address]- [address]695 Mar, [facility] [address] [id number] [place] [address]- [address] Mar, [facility] [address] [id number] [place] [address]- 7651 Mar, [facility] [address] [id number] [place] [address]- [address] Mar, [facility] [address] [id number] [place] [address]- [address] Mar, [facility] [address] [id number] [place] [address]- 1190 Mar, [facility] [address] [id number] [place] [address]- 8758 Oct, [facility] [address] [id number] [place] [address]- [address] July, [facility] [address] [id number] [place] [address]- [address] July, [facility] [address] [id number] [place] [address]- [address] Jun, [facility] [place] [facility] [address] [id number] [place] [address]- 5186 May, [facility] [address] [id number] [place] [address]- [address]398 Feb, [facility] [address] [id number] [place] [address]- 7462 Feb, [facility] [address] [facility] [id number] [place] [address]- [address] July, [facility] [address] [facility] [id number] [place] [address] Apr, [facility] [address] [facility] [id number] [place] [address] Jan, IMMUNIZATIONS No Known Immunizations SOCIAL HISTORY Never Assessed REASON FOR VISIT Psychological evaluation for Bariatric surgery. PLAN OF CARE Activity Details Follow Up prn Reason: VITAL SIGNS MEDICATIONS No Known Medications RESULTS No Results PROCEDURES Procedure Date Ordered Result Body Site Psychotherapy, patient &/family, 30 minutes, established patient September 29, 2016 INSTRUCTIONS MEDICATIONS ADMINISTERED No Known Medications [...]
--- OUTSIDE RECORDS SUMMARY | 2017-07-26 18:41 | XMS REPORT | Continuity of Care Document ---
Author Author [facility] Address Unknown Phone Unavailable Allergies Active Description Code Type Severity Reaction Onset Reported/Identified Relationship to Patient Clinical Status Yes NO KNOWN DRUG ALLERGIES NO KNOWN DRUG ALLERG UNKNOWN Yes NO KNOWN DRUG ALLERGIES UNKNOWN NO KNOWN DRUG ALLERG Yes NKANo Known Allergies NKA Miscellaneous Allergy Mild N/A 07/24/2016 Yes No Known Drug Allergies [id number] Drug Allergy Unknown N/A 11/10/2016 Medications Medication Packaging Start Date Stop Date Route Dosage Sig KETOROLAC VIAL INJ 60 MG/2CC (TORADOL VIAL) MG 04/08/2016 04/08/2016 ONCE&1130 KETOROLAC VIAL INJ 30 MG/CC (TORADOL VIAL) MG 05/20/2017 05/20/2017 ONCE&2044 Methylprednisolone inj susp 80mg (DEPO-Medrol) MG 05/20/2017 05/20/2017 ONCE&2044 Problems Date Dx Coded Attending Type Code Diagnosis Diagnosed By 01/26/2009 V72.31 Cervix Sample Taken For Pap Smear 01/26/2009 ADELINE BASSETT APRN V72.31 Cervix Sample Taken For Pap Smear 01/26/2009 V72.31 Cervix Sample Taken For Pap Smear 01/26/2009 V72.31 Cervix Sample Taken For Pap Smear 01/26/2009 VERONIQUE VELA APRN V72.31 Cervix Sample Taken For Pap Smear 01/26/2009 ROLY POPE DO V72.31 Cervix Sample Taken For Pap Smear 01/26/2009 BERTHA RIOS APRN V72.31 Cervix Sample Taken For Pap Smear 01/26/2009 ROLY POPE DO V72.31 Cervix Sample Taken For Pap Smear 01/26/2009 VERONIQUE VELA APRN R V72.31 Cervix Sample Taken For Pap Smear 01/26/2009 VERONIQUE VELA APRN V72.31 Cervix Sample Taken For Pap Smear 01/26/2009 VERONIQUE VELA APRN V72.31 Cervix Sample Taken For Pap Smear 01/26/2009 VERONIQUE VELA APRN V72.31 Cervix Sample Taken For Pap Smear 05/11/2009 009.1 GASTROENTERITIS INFECT 05/11/2009 ADELINE BASSETT APRN 009.1 GASTROENTERITIS INFECT 05/11/2009 009.1 GASTROENTERITIS INFECT 05/11/2009 009.1 GASTROENTERITIS INFECT 05/11/2009 JARON VELA APRNINA R 009.1 GASTROENTERITIS INFECT 05/11/2009 POPE DO ROLY K 009.1 GASTROENTERITIS INFECT 05/11/2009 BERTHA RIOS APRN S 009.1 GASTROENTERITIS INFECT 05/11/2009 TOSHIA DO, ROLY K 009.1 GASTROENTERITIS INFECT 05/11/2009 MIRIAN MEEHAN, VERONIQUE R 009.1 GASTROENTERITIS INFECT 05/11/2009 JARON VELA APRNINA R 009.1 GASTROENTERITIS INFECT 05/11/2009 JARON VELA APRNINA R 009.1 GASTROENTERITIS INFECT 05/11/2009 JARON VELA APRNINA R 009.1 GASTROENTERITIS INFECT 07/24/2009 Ot 272.4 07/24/2009 Ot 724.5 07/24/2009 Ot 786.50 07/24/2009 Ot 786.52 08/10/2009 716.90 ARTHRITIS/ ARTHROPATHY, UNSPECIFIED 08/10/2009 724.5 BACKACHE UNSPECIFIED 08/10/2009 ADELINE BASSETT APRN 716.90 ARTHRITIS/ ARTHROPATHY, UNSPECIFIED 08/10/2009 ADELINE BASSETT APRN 724.5 BACKACHE UNSPECIFIED 08/10/2009 716.90 ARTHRITIS/ ARTHROPATHY, UNSPECIFIED 08/10/2009 724.5 BACKACHE UNSPECIFIED 08/10/2009 716.90 ARTHRITIS/ ARTHROPATHY, UNSPECIFIED 08/10/2009 724.5 BACKACHE UNSPECIFIED 08/10/2009 VERONIQUE VELA APRN R 716.90 ARTHRITIS/ ARTHROPATHY, UNSPECIFIED 08/10/2009 VERONIQUE VELA APRN R 724.5 BACKACHE UNSPECIFIED 08/10/2009 POPE NOEL LEONA K 716.90 ARTHRITIS/ ARTHROPATHY, UNSPECIFIED 08/10/2009 POPE DO ROLY K 724.5 BACKACHE UNSPECIFIED 08/10/2009 BERTHA RIOS APRN S 716.90 ARTHRITIS/ ARTHROPATHY, UNSPECIFIED 08/10/2009 GABRIEL PASTOR, BERTHA S 724.5 BACKACHE UNSPECIFIED 08/10/2009 POPE DO, ROLY K 716.90 ARTHRITIS/ ARTHROPATHY, UNSPECIFIED 08/10/2009 POPE DO, ROLY K 724.5 BACKACHE UNSPECIFIED 08/10/2009 MIRIAN PASTOR, VERONIQUE R 716.90 ARTHRITIS/ ARTHROPATHY, UNSPECIFIED 08/10/2009 MIRIAN PASTOR, VERONIQUE R 724.5 BACKACHE UNSPECIFIED 08/10/2009 MIRIAN PASTOR, VERONIQUE R 716.90 ARTHRITIS/ ARTHROPATHY, UNSPECIFIED 08/10/2009 MIRIAN PASTOR, VERONIQUE R 724.5 BACKACHE UNSPECIFIED 08/10/2009 MIRIAN PASTOR, VERONIQUE R 716.90 ARTHRITIS/ ARTHROPATHY, UNSPECIFIED 08/10/2009 MIRIAN PASTOR, VERONIQUE R 724.5 BACKACHE UNSPECIFIED 08/10/2009 MIRIAN PASTOR, VERONIQUE R 716.90 ARTHRITIS/ ARTHROPATHY, UNSPECIFIED 08/10/2009 MIRIAN PASTOR, VERONIQUE R 724.5 BACKACHE UNSPECIFIED 09/10/2009 717.7 CHONDROMALACIA OF PATELLA 09/10/2009 836.0 TEAR OF MEDIAL CARTILAGE OR MENISCUS OF KNEE, CURRENT 09/10/2009 ADELINE BASSETT APRN 717.7 CHONDROMALACIA OF PATELLA 09/10/2009 ADELINE BASSETT APRN 836.0 TEAR OF MEDIAL CARTILAGE OR MENISCUS OF KNEE, CURRENT 09/10/2009 717.7 CHONDROMALACIA OF PATELLA 09/10/2009 836.0 TEAR OF MEDIAL CARTILAGE OR MENISCUS OF KNEE, CURRENT 09/10/2009 717.7 CHONDROMALACIA OF PATELLA 09/10/2009 836.0 TEAR OF MEDIAL CARTILAGE OR MENISCUS OF KNEE, CURRENT 09/10/2009 MIRIAN PASTOR, VERONIQUE R 717.7 CHONDROMALACIA OF PATELLA 09/10/2009 MIRIAN PASTOR, VERONIQUE R 836.0 TEAR OF MEDIAL CARTILAGE OR MENISCUS OF KNEE, CURRENT 09/10/2009 POPE DO ROLY K 717.7 CHONDROMALACIA OF PATELLA 09/10/2009 POPE DO ROLY K 836.0 TEAR OF MEDIAL CARTILAGE OR MENISCUS OF KNEE, CURRENT 09/10/2009 BERTHA RIOS APRN S 717.7 CHONDROMALACIA OF PATELLA 09/10/2009 TUAN RIOS APRNA S 836.0 TEAR OF MEDIAL CARTILAGE OR MENISCUS OF KNEE, CURRENT 09/10/2009 ROLY POPE DO K 717.7 CHONDROMALACIA OF PATELLA 09/10/2009 ROLY POPE DO K 836.0 TEAR OF MEDIAL CARTILAGE OR MENISCUS OF KNEE, CURRENT 09/10/2009 MIRIAN PASTOR, VERONIQUE R 717.7 CHONDROMALACIA OF PATELLA 09/10/2009 MIRIAN PASTOR, VERONIQUE R 836.0 TEAR OF MEDIAL CARTILAGE OR MENISCUS OF KNEE, CURRENT 09/10/2009 MIRIAN PASTOR, VERONIQUE R 717.7 CHONDROMALACIA OF PATELLA 09/10/2009 MIRIAN PASTOR, VERONIQUE R 836.0 TEAR OF MEDIAL CARTILAGE OR MENISCUS OF KNEE, CURRENT 09/10/2009 MIRIAN PASTOR, VERONIQUE R 717.7 CHONDROMALACIA OF PATELLA 09/10/2009 MIRIAN PASTOR, VERONIQUE R 836.0 TEAR OF MEDIAL CARTILAGE OR MENISCUS OF KNEE, CURRENT 09/10/2009 MIRIAN PASTOR, VERONIQUE R 717.7 CHONDROMALACIA OF PATELLA 09/10/2009 MIRIAN PASTOR, VERONIQUE R 836.0 TEAR OF MEDIAL CARTILAGE OR MENISCUS OF KNEE, CURRENT 03/07/2010 Ot 787.91 03/07/2010 Ot 789.09 06/20/2012 ADELINE BASSETT APRN 719.46 PAIN IN JOINT INVOLVING LOWER LEG 06/20/2012 719.46 PAIN IN JOINT INVOLVING LOWER LEG 06/20/2012 719.46 PAIN IN JOINT INVOLVING LOWER LEG 06/20/2012 MIRIAN MEEHAN, VERONIQUE R 719.46 PAIN IN JOINT INVOLVING LOWER LEG 06/20/2012 ROLY POPE DO K 719.46 PAIN IN JOINT INVOLVING LOWER LEG 06/20/2012 BERTHA RIOS APRN 719.46 PAIN IN JOINT INVOLVING LOWER LEG 06/20/2012 ROLY POPE DO K 719.46 PAIN IN JOINT INVOLVING LOWER LEG 06/20/2012 MIRIAN NEALN, VERONIQUE R 719.46 PAIN IN JOINT INVOLVING LOWER LEG 06/20/2012 MIRIAN PASTOR, VERONIQUE R 719.46 PAIN IN JOINT INVOLVING LOWER LEG 06/20/2012 MIRIAN NEALN, VERONIQUE R 719.46 PAIN IN JOINT INVOLVING LOWER LEG 06/20/2012 MIRIAN NEALN, VERONIQUE R 719.46 PAIN IN JOINT INVOLVING LOWER LEG 08/24/2012 726.73 HEEL SPUR 08/24/2012 726.73 HEEL SPUR 08/24/2012 MIRIAN PASTOR, VERONIQUE R 726.73 HEEL SPUR 08/24/2012 ROLY POPE DO K 726.73 HEEL SPUR 08/24/2012 GABRIEL MEEHAN BERTHA S 726.73 HEEL SPUR 08/24/2012 NOEL POPE DOA K 726.73 HEEL SPUR 08/24/2012 MIRIAN PASTOR, VERONIQUE R 726.73 HEEL SPUR 08/24/2012 MIRIAN PASTOR, VERONIQUE R 726.73 HEEL SPUR 08/24/2012 MIRIAN PASTOR, VERONIQUE R 726.73 HEEL SPUR 08/24/2012 MIRIAN PASTOR, VERONIQUE R 726.73 HEEL SPUR 04/19/2013 MIRIAN MEEHAN VERONIQUE R 780.4 DIZZINESS AND VERTIGO 04/19/2013 MIRIAN MEEHAN VERONIQUE R 783.1 ABNORMAL WEIGHT GAIN 04/19/2013 ROLY POPE DO K 780.4 DIZZINESS AND VERTIGO 04/19/2013 ROLY POPE DO K 783.1 ABNORMAL WEIGHT GAIN 04/19/2013 TUAN RIOS APRNA S 780.4 DIZZINESS AND VERTIGO 04/19/2013 CURT RIOS APRNNDA S 783.1 ABNORMAL WEIGHT GAIN 04/19/2013 NOEL POPE DOA K 780.4 DIZZINESS AND VERTIGO 04/19/2013 TOSHIA LEON ROLY K 783.1 ABNORMAL WEIGHT GAIN 04/19/2013 MIRIAN MEEHAN, VERONIQUE R 780.4 DIZZINESS AND VERTIGO 04/19/2013 MIRIAN MEEHAN VERONIQUE R 783.1 ABNORMAL WEIGHT GAIN 04/19/2013 MIRIAN MEEHAN, VERONIQUE R 780.4 DIZZINESS AND VERTIGO 04/19/2013 MIRIAN NEALN, VERONIQUE R 783.1 ABNORMAL WEIGHT GAIN 04/19/2013 MIRIAN NEALN, VERONIQUE R 780.4 DIZZINESS AND VERTIGO 04/19/2013 MIRIAN NEALN, VERONIQUE R 783.1 ABNORMAL WEIGHT GAIN 04/19/2013 MIRIAN NEALN, VERONIQUE R 780.4 DIZZINESS AND VERTIGO 04/19/2013 MIRIAN MEEHAN, VERONIQUE R 783.1 ABNORMAL WEIGHT GAIN 08/05/2013 JAELYN MORALES APRN Ot 454.9 08/05/2013 JAELYN MORALES APRN Ot 729.5 08/26/2013 JAELYN MORALES PASTOR Ot 599.0 08/26/2013 JAELYN MORALES PASTOR Ot 787.02 10/22/2013 BERTHA RIOS APRN S 729.4 PLANTAR FASCIITIS 10/22/2013 TOSHIA LEON ROLY K 729.4 PLANTAR FASCIITIS 10/22/2013 MIRIAN PASTOR, VERONIQUE R 729.4 PLANTAR FASCIITIS 10/22/2013 MIRIAN NEALN, VERONIQUE R 729.4 PLANTAR FASCIITIS 10/22/2013 MIRIAN PASTOR, VERONIQUE R 729.4 PLANTAR FASCIITIS 10/22/2013 MIRIAN PASTOR, VERONIQUE R 729.4 PLANTAR FASCIITIS 02/03/2014 POPE DO, ROLY K 008.8 INTESTINAL INFECTION DUE TO OTHER ORGANISM NOT ELSEWHERE CLASSIFIED 02/03/2014 POPE DO, ROLY K 787.01 NAUSEA WITH VOMITING 02/03/2014 POPE DO, ROLY K 789.00 ABDOMINAL PAIN UNSPECIFIED SITE 02/03/2014 MIRIAN MEEHAN VERONIQUE R 008.8 INTESTINAL INFECTION DUE TO OTHER ORGANISM NOT ELSEWHERE CLASSIFIED 02/03/2014 MIRIAN MEEHAN VERONIQUE R 787.01 NAUSEA WITH VOMITING 02/03/2014 MIRIAN MEEHAN VERONIQUE R 789.00 ABDOMINAL PAIN UNSPECIFIED SITE 02/03/2014 MIRIAN MEEHAN VERONIQUE R 008.8 INTESTINAL INFECTION DUE TO OTHER ORGANISM NOT ELSEWHERE CLASSIFIED 02/03/2014 MIRIAN MEEHAN VERONIQUE R 787.01 NAUSEA WITH VOMITING 02/03/2014 MIRIAN MEEHAN VERONIQUE R 789.00 ABDOMINAL PAIN UNSPECIFIED SITE 02/03/2014 MIRIAN MEEHAN VERONIQUE R 008.8 INTESTINAL INFECTION DUE TO OTHER ORGANISM NOT ELSEWHERE CLASSIFIED 02/03/2014 MIRIAN MEEHAN VERONIQUE R 787.01 NAUSEA WITH VOMITING 02/03/2014 MIRIAN NEALN VERONIQUE R 789.00 ABDOMINAL PAIN UNSPECIFIED SITE 02/03/2014 MIRIAN MEEHAN VERONIQUE R 008.8 INTESTINAL INFECTION DUE TO OTHER ORGANISM NOT ELSEWHERE CLASSIFIED 02/03/2014 MIRIAN MEEHAN VERONIQUE R 787.01 NAUSEA WITH VOMITING 02/03/2014 MIRIAN MEEHAN VERONIQUE R 789.00 ABDOMINAL PAIN UNSPECIFIED SITE 03/04/2014 MIRIAN MEEHAN VERONIQUE R 780.79 OTHER MALAISE AND FATIGUE 03/04/2014 MIRIAN MEEHAN VERONIQUE R 786.2 COUGH 03/04/2014 MIRIAN PASTOR, VERONIQUE R 780.79 OTHER MALAISE AND FATIGUE 03/04/2014 MIRIAN PASTOR, VERONIQUE R 786.2 COUGH 03/04/2014 MIRIAN PASTOR, VERONIQUE R 780.79 OTHER MALAISE AND FATIGUE 03/04/2014 MIRIAN PASTOR, VERONIQUE R 786.2 COUGH 03/04/2014 MIRIAN PASTOR, VERONIQUE R 780.79 OTHER MALAISE AND FATIGUE 03/04/2014 MIRIAN PASTOR, VERONIQUE R 786.2 COUGH 05/01/2014 MIRIAN PASTOR, VERONIQUE R 723.1 CERVICALGIA 05/01/2014 MIRIAN PASTOR, VERONIQUE R 723.1 CERVICALGIA 05/01/2014 MIRIAN PASTOR, VERONIQUE R 723.1 CERVICALGIA 07/12/2014 Ot 717.3 07/12/2014 Ot 719.06 07/12/2014 JAELYN MORALES PASTOR Ot 724.2 07/12/2014 JAELYN MORALES PASTOR Ot 724.4 07/17/2014 MIRIAN PASTOR, VERONIQUE R 724.2 LUMBAGO/ LOW BACK PAIN 07/17/2014 MIRIAN PASTOR, VERONIQUE R 729.1 MYALGIA AND MYOSITIS UNSPECIFIED 11/24/2014 Ot 717.3 11/24/2014 Ot 719.06 11/24/2014 ADILIA RAHMAN Ot 723.1 11/24/2014 ADILIA RAHMAN Ot 847.0 11/24/2014 ADILIA RAHMAN Ot E000.8 11/24/2014 ADILIA RAHMAN Ot E928.9 11/24/2014 Ot 717.3 11/24/2014 Ot 719.06 02/07/2015 Ot 717.3 02/07/2015 Ot 719.06 02/07/2015 YUMIKO MARTINEZ MD Ot J02.9 ACUTE PHARYNGITIS, UNSPECIFIED 02/07/2015 YUMIKO MARTINEZ MD Ot J06.9 ACUTE UPPER RESPIRATORY INFECTION, UNSPE 03/02/2015 ADILIA RAHMAN Ot N83.20 UNSPECIFIED OVARIAN CYSTS 03/02/2015 ADILIA RAHMAN Ot R10.10 UPPER ABDOMINAL PAIN, UNSPECIFIED 03/02/2015 ADILIA RAHMAN Ot R11.2 NAUSEA WITH VOMITING, UNSPECIFIED 03/02/2015 ADILIA RAHMAN Ot R19.7 DIARRHEA, UNSPECIFIED 03/02/2015 ADILIA RAHMAN Ot Z90.710 ACQUIRED ABSENCE OF BOTH CERVIX AND UTER 03/31/2015 SARAHI ERVIN PASTOR Ot R10.11 05/20/2015 QAMAR GODOY PASTOR Ot N64.4 05/22/2015 SARAHI ERVIN PASTOR Ot R10.11 05/22/2015 QAMAR GODOY PASTOR Ot N64.4 06/01/2015 SARAHI ERVIN PASTOR Ot S89.92XA 06/01/2015 SARAHI ERVIN PASTOR Ot X58.XXXA 06/01/2015 SARAHI ERVIN PASTOR Ot Y99.8 09/10/2015 SARAHI ERVIN PASTOR Ot R10.11 RIGHT UPPER QUADRANT PAIN 09/10/2015 QAMAR OGDOY PASTOR Ot N64.4 MASTODYNIA 09/10/2015 SARAHI ERVIN PASTOR Ot S89.92XA UNSPECIFIED INJURY OF LEFT LOWER LEG, IN 09/10/2015 SARAHI ERVIN PASTOR Ot X58.XXXA EXPOSURE TO OTHER SPECIFIED FACTORS, INI 09/10/2015 SARAHI ERVIN PASTOR Ot Y99.8 OTHER EXTERNAL CAUSE STATUS 09/10/2015 JUSTUS LIN DO Ot H92.02 OTALGIA, LEFT EAR 09/10/2015 JUSTUS LIN DO Ot J01.90 ACUTE SINUSITIS, UNSPECIFIED 09/10/2015 JUSTUS LIN DO, Ot J40 BRONCHITIS, NOT SPECIFIED ACUTE OR CH 09/10/2015 JUSTUS LIN DO Ot M79.601 PAIN IN RIGHT ARM 09/11/2015 JUSTUS LIN DO, Ot H92.02 OTALGIA, LEFT EAR 09/11/2015 JUSTUS LIN DO, Ot J01.90 ACUTE SINUSITIS, UNSPECIFIED 09/11/2015 JUSTUS LIN DO Ot J40 BRONCHITIS, NOT SPECIFIED ACUTE OR CH 09/11/2015 JUSTUS LIN DO Ot M79.601 PAIN IN RIGHT ARM 09/12/2015 RILEY DO, JUSTUS D Ot H92.02 OTALGIA, LEFT EAR 09/12/2015 JUSTUS LIN DO Ot J01.90 ACUTE SINUSITIS, UNSPECIFIED 09/12/2015 JUSTUS LIN DO Ot J40 BRONCHITIS, NOT SPECIFIED ACUTE OR CH 09/12/2015 JUSTUS LIN DO Ot M79.601 PAIN IN RIGHT ARM 11/19/2015 SARAHI ERVIN PASTOR Ot R10.11 RIGHT UPPER QUADRANT PAIN 11/23/2015 SARAHI ERVIN PASTOR Ot M25.562 PAIN IN LEFT KNEE 11/23/2015 SARAHI ERVIN PASTOR Ot 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] 11/25/2015 SARAHI ERVIN PASTOR Ot M25.562 PAIN IN LEFT KNEE 11/29/2015 SARAHI ERVIN PASTOR Ot M25.562 PAIN IN LEFT KNEE 03/08/2016 SARAHI ERVIN PASTOR Ot R10.11 RIGHT UPPER QUADRANT PAIN 03/08/2016 SARAHI ERVIN PASTOR Ot M25.562 PAIN IN LEFT KNEE 03/08/2016 SARAHI ERVIN PASTOR Ot M25.562 PAIN IN LEFT KNEE 03/08/2016 SARAHI ERVIN PASTOR Ot 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] 03/08/2016 ADILIA RAHMAN Ot J02.9 ACUTE PHARYNGITIS, UNSPECIFIED 03/08/2016 ADILIA RAHMAN Ot J20.9 ACUTE BRONCHITIS, UNSPECIFIED 03/08/2016 ADILIA RAHMAN Ot R11.2 NAUSEA WITH VOMITING, UNSPECIFIED 03/08/2016 ADILIA RAHMAN Ot R19.7 DIARRHEA, UNSPECIFIED 03/08/2016 SARAHI ERVIN PASTOR Ot R10.11 RIGHT UPPER QUADRANT PAIN 03/08/2016 QAMAR GODOY PASTOR Ot N64.4 MASTODYNIA 03/08/2016 SARAHI ERVIN PASTOR Ot S89.92XA UNSPECIFIED INJURY OF LEFT LOWER LEG, IN 03/08/2016 SARAHI ERVIN PASTOR Ot X58.XXXA EXPOSURE TO OTHER SPECIFIED FACTORS, INI 03/08/2016 SARAHI ERVIN PASTOR Ot Y99.8 OTHER EXTERNAL CAUSE STATUS 03/09/2016 ADILIA RAHMAN Ot J02.9 ACUTE PHARYNGITIS, UNSPECIFIED 03/09/2016 ADILIA ARHMAN Ot J20.9 ACUTE BRONCHITIS, UNSPECIFIED 03/09/2016 ADILIA RAHMAN Ot R11.2 NAUSEA WITH VOMITING, UNSPECIFIED 03/09/2016 ADILIA RAHMAN Ot R19.7 DIARRHEA, UNSPECIFIED 04/08/2016 Aleksadnr Bojorquez 848.8 OTHER SPECIFIED SITES OF SPRAINS AND STRAINS 04/08/2016 Aleksandr Bojorquez S29.012A STRAIN OF MUSCLE AND TENDON OF BACK WALL OF THORAX, INIT 04/21/2016 SARAHI ERVIN PASTOR Ot R10.11 RIGHT UPPER QUADRANT PAIN 04/21/2016 QAMAR GODOY PASTOR Ot N64.4 MASTODYNIA 04/21/2016 SARAHI ERVIN PASTOR Ot S89.92XA UNSPECIFIED INJURY OF LEFT LOWER LEG, IN 04/21/2016 SARAHI ERVIN PASTOR Ot X58.XXXA EXPOSURE TO OTHER SPECIFIED FACTORS, INI 04/21/2016 SARAHI ERVIN PASTOR Ot Y99.8 OTHER EXTERNAL CAUSE STATUS 04/21/2016 JAELYN MORALES APRN Ot E11.9 TYPE 2 DIABETES MELLITUS WITHOUT COMPLIC 04/21/2016 JAELYN MORALES APRN Ot M54.41 LUMBAGO WITH SCIATICA, RIGHT SIDE 04/21/2016 JAELYN MORALES APRN Ot M54.5 LOW BACK PAIN 04/22/2016 JAELYN MORALES APRN Ot E11.9 TYPE 2 DIABETES MELLITUS WITHOUT COMPLIC 04/22/2016 JAELYN MORALES PASTOR Ot M54.41 LUMBAGO WITH SCIATICA, RIGHT SIDE 04/22/2016 JAELYN MORALES APRN Ot M54.5 LOW BACK PAIN 04/27/2016 JAELYN MORALES APRN Ot E11.9 TYPE 2 DIABETES MELLITUS WITHOUT COMPLIC 04/27/2016 JAELYN MORALES APRN Ot M54.41 LUMBAGO WITH SCIATICA, RIGHT SIDE 04/27/2016 JAELYN MORALES PASTOR Ot M54.5 LOW BACK PAIN 04/29/2016 JAELYN MORALES PASTOR Ot E11.9 TYPE 2 DIABETES MELLITUS WITHOUT COMPLIC 04/29/2016 MORALES, PETER J PASTOR Ot M54.41 LUMBAGO WITH SCIATICA, RIGHT SIDE 04/29/2016 JAELYN MORALES PASTOR Ot M54.5 LOW BACK PAIN 07/21/2016 SARAHI ERVIN Anabel PASTOR Ot R10.11 RIGHT UPPER QUADRANT PAIN 07/21/2016 QAMAR GODOY PASTOR Ot N64.4 MASTODYNIA 07/21/2016 SARAHI ERVIN PASTOR Ot S89.92XA UNSPECIFIED INJURY OF LEFT LOWER LEG, IN 07/21/2016 SARAHI ERVIN Anabel PASTOR Ot X58.XXXA EXPOSURE TO OTHER SPECIFIED FACTORS, INI 07/21/2016 SARAHI ERVIN Anabel PASTOR Ot Y99.8 OTHER EXTERNAL CAUSE STATUS 07/24/2016 SARAHI ERVIN Anabel PASTOR Ot R10.11 RIGHT UPPER QUADRANT PAIN 07/24/2016 QAMAR GODOY PASTOR Ot N64.4 MASTODYNIA 07/24/2016 ERVIN SARAHI Anabel PASTOR Ot S89.92XA UNSPECIFIED INJURY OF LEFT LOWER LEG, IN 07/24/2016 ERVINSINANSARAHI Anabel PASTOR Ot X58.XXXA EXPOSURE TO OTHER SPECIFIED FACTORS, INI 07/24/2016 ERVINSARAHI Gaspar Anabel PASTOR Ot Y99.8 OTHER EXTERNAL CAUSE STATUS 07/24/2016 INOCENCIO LEMUS, WATSON Ot R10.11 RIGHT UPPER QUADRANT PAIN 07/24/2016 WATSON PAINTER MD Ot R10.32 LEFT LOWER QUADRANT PAIN 07/24/2016 NINO WINKLER MD Ot E11.9 TYPE 2 DIABETES MELLITUS WITHOUT COMPLIC 07/24/2016 NINO WINKLER MD T Ot N83.292 OTHER OVARIAN CYST, LEFT SIDE 07/24/2016 NINO WINKLER MD T Ot R10.11 RIGHT UPPER QUADRANT PAIN 07/24/2016 NINO WINKLER MD T Ot R11.2 NAUSEA WITH VOMITING, UNSPECIFIED 07/25/2016 NINO WINKLER MD T Ot E11.9 TYPE 2 DIABETES MELLITUS WITHOUT COMPLIC 07/25/2016 NINO WINKLER MD T Ot N83.292 OTHER OVARIAN CYST, LEFT SIDE 07/25/2016 NINO WINKLER MD T Ot R10.11 RIGHT UPPER QUADRANT PAIN 07/25/2016 NINO WINKLER MD Ot R11.2 NAUSEA WITH VOMITING, UNSPECIFIED 07/25/2016 WATSON PAINTER MD Ot R10.31 RIGHT LOWER QUADRANT PAIN 07/25/2016 WATSON PAINTER MD Ot R10.32 LEFT LOWER QUADRANT PAIN 07/26/2016 NINO WINKLER MD Ot E11.9 TYPE 2 DIABETES MELLITUS WITHOUT COMPLIC 07/26/2016 NINO WINKLER MD Ot N83.292 OTHER OVARIAN CYST, LEFT SIDE 07/26/2016 NINO WINKLER MD Ot R10.11 RIGHT UPPER QUADRANT PAIN 07/26/2016 NINO WINKLER MD, Ot R11.2 NAUSEA WITH VOMITING, UNSPECIFIED 07/28/2016 HERSON VENTURA DO S Ot D27.1 BENIGN NEOPLASM OF LEFT OVARY 07/28/2016 HERSON VENTURA DO S Ot E66.9 OBESITY, UNSPECIFIED 07/28/2016 HERSON VENTURA DO S Ot K81.1 CHRONIC CHOLECYSTITIS 07/28/2016 HERSON VENTURA DO S Ot N83.02 FOLLICULAR CYST OF LEFT OVARY 07/28/2016 HERSON VENTURA DO S Ot 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 07/28/2016 HERSON VENTURA DO S Ot Z68.41 BODY MASS INDEX (BMI) 40.0-44.9, ADULT 07/30/2016 NINO WINKLER MD Ot G89.18 OTHER ACUTE POSTPROCEDURAL PAIN 07/30/2016 NINO WINKLER MD Ot R05 COUGH 07/30/2016 NINO WINKLER MD Ot R06.02 SHORTNESS OF BREATH 07/30/2016 NINO WINKLER MD Ot Z79.899 OTHER USP (CURRENT) DRUG THERAPY 07/30/2016 NINO WINKLER MD, Ot Z90.49 ACQUIRED ABSENCE OF OTHER SPECIFIED PART 07/30/2016 NINO WINKLER MD, Ot Z90.721 ACQUIRED ABSENCE OF OVARIES, UNILATERAL 08/01/2016 HERSON VENTURA DO S Ot D27.1 BENIGN NEOPLASM OF LEFT OVARY 08/01/2016 HERSON VENTURA DO S Ot E66.9 OBESITY, UNSPECIFIED 08/01/2016 FENECH DO, HERSON S Ot K81.1 CHRONIC CHOLECYSTITIS 08/01/2016 FENECH DO, HERSON S Ot N83.02 FOLLICULAR CYST OF LEFT OVARY 08/01/2016 FENECH DO, HERSON S Ot 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 08/01/2016 FENDIONNA DO, HERSON S Ot Z68.41 BODY MASS INDEX (BMI) 40.0-44.9, ADULT 08/03/2016 FENDIONNA DO, HERSON S Ot D27.1 BENIGN NEOPLASM OF LEFT OVARY 08/03/2016 FENECH DO, HERSON S Ot E66.9 OBESITY, UNSPECIFIED 08/03/2016 FENECH DO, HERSON S Ot K81.1 CHRONIC CHOLECYSTITIS 08/03/2016 FENECH DO, HERSON S Ot N83.02 FOLLICULAR CYST OF LEFT OVARY 08/03/2016 FENECH DO, HERSON S Ot 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 08/03/2016 FENDIONNA DO, HERSON S Ot Z68.41 BODY MASS INDEX (BMI) 40.0-44.9, ADULT 08/05/2016 WATSON PAINTER MD Ot R10.31 RIGHT LOWER QUADRANT PAIN 08/05/2016 WATSON PAINTER MD Ot R10.32 LEFT LOWER QUADRANT PAIN 08/08/2016 WATSON PAINTER MD Ot R10.11 RIGHT UPPER QUADRANT PAIN 08/08/2016 WATSON PAINTER MD Ot R10.32 LEFT LOWER QUADRANT PAIN 08/09/2016 LORENZO DO, HERSON S Ot D27.1 BENIGN NEOPLASM OF LEFT OVARY 08/09/2016 LORENZO DO, HERSON S Ot E66.9 OBESITY, UNSPECIFIED 08/09/2016 LORENZO DO, HERSON S Ot K81.1 CHRONIC CHOLECYSTITIS 08/09/2016 FENECH DO, HERSON S Ot N83.02 FOLLICULAR CYST OF LEFT OVARY 08/09/2016 FENECH DO, HERSON S Ot 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 08/09/2016 FENECH DO, HERSON S Ot Z68.41 BODY MASS INDEX (BMI) 40.0-44.9, ADULT 09/07/2016 SARAHI ERVIN APRN Ot R10.11 RIGHT UPPER QUADRANT PAIN 09/07/2016 QAMAR GODOY PASTOR Ot N64.4 MASTODYNIA 09/07/2016 SARAHI ERVIN PASTOR Ot S89.92XA UNSPECIFIED INJURY OF LEFT LOWER LEG, IN 09/07/2016 SARAHI ERVIN PASTOR Ot X58.XXXA EXPOSURE TO OTHER SPECIFIED FACTORS, INI 09/07/2016 SARAHI ERVIN PASTOR Ot Y99.8 OTHER EXTERNAL CAUSE STATUS 09/07/2016 WATSON PAINTER MD Ot R10.11 RIGHT UPPER QUADRANT PAIN 09/07/2016 WATSON PAINTER MD Ot R10.32 LEFT LOWER QUADRANT PAIN 09/07/2016 WATSON PAINTER MD Ot R10.31 RIGHT LOWER QUADRANT PAIN 09/07/2016 WATSON PAINTER MD Ot R10.32 LEFT LOWER QUADRANT PAIN 09/21/2016 LYSSA MILES PASTOR Ot K21.9 GASTRO-ESOPHAGEAL REFLUX DISEASE WITHOUT 11/17/2016 SARAHI ERVIN PASTOR Ot R10.11 RIGHT UPPER QUADRANT PAIN 11/17/2016 QAMAR GODOY PASTOR Ot N64.4 MASTODYNIA 11/17/2016 SARAHI ERVIN PASTOR Ot S89.92XA UNSPECIFIED INJURY OF LEFT LOWER LEG, IN 11/17/2016 SARAHI ERVIN PASTOR Ot X58.XXXA EXPOSURE TO OTHER SPECIFIED FACTORS, INI 11/17/2016 SARAHI ERVIN PASTOR Ot Y99.8 OTHER EXTERNAL CAUSE STATUS 11/17/2016 WATSON PAINTER MD Ot R10.11 RIGHT UPPER QUADRANT PAIN 11/17/2016 WATSON PAINTER MD Ot R10.32 LEFT LOWER QUADRANT PAIN 11/17/2016 WATSON PAINTER MD Ot R10.31 RIGHT LOWER QUADRANT PAIN 11/17/2016 WATSON PAINTER MD Ot R10.32 LEFT LOWER QUADRANT PAIN 11/17/2016 LYSSA MILES PASTOR Ot K21.9 GASTRO-ESOPHAGEAL REFLUX DISEASE WITHOUT 11/17/2016 WATSON PAINTER MD Ot E66.01 MORBID (SEVERE) OBESITY DUE TO EXCESS CA 11/17/2016 WATSON PAINTER MD Ot Z01.812 ENCOUNTER FOR PREPROCEDURAL LABORATORY E 11/18/2016 WATSON PAINTER MD Ot E66.01 MORBID (SEVERE) OBESITY DUE TO EXCESS CA 11/18/2016 WATSON PAINTER MD Ot E78.5 HYPERLIPIDEMIA, UNSPECIFIED 11/18/2016 WATSON PAINTER MD, Ot K21.9 GASTRO-ESOPHAGEAL REFLUX DISEASE WITHOUT 11/18/2016 WATSON PAINTER MD, Ot M19.91 PRIMARY OSTEOARTHRITIS, UNSPECIFIED SITE 11/18/2016 WATSON PAINTER MD, Ot Z68.41 BODY MASS INDEX (BMI) 40.0-44.9, ADULT 11/24/2016 WATSON PAINTER MD, Ot E66.01 MORBID (SEVERE) OBESITY DUE TO EXCESS CA 11/24/2016 WATSON PAINTER MD, Ot Z01.812 ENCOUNTER FOR PREPROCEDURAL LABORATORY E 05/20/2017 NINO LAZCANO 840.8 SPRAIN OF OTHER SPECIFIED SITES OF SHOULDER AND UPPER ARM 05/20/2017 NINO LAZCANO S43.492A OTHER SPRAIN OF LEFT SHOULDER JOINT, INITIAL ENCOUNTER 06/20/2017 JEREMY MAC MD Ot E11.9 TYPE 2 DIABETES MELLITUS WITHOUT COMPLIC 06/20/2017 JEREMY MAC MD, Ot E78.00 PURE HYPERCHOLESTEROLEMIA, UNSPECIFIED 06/20/2017 JEREMY MAC MD Ot F41.9 ANXIETY DISORDER, UNSPECIFIED 06/20/2017 JEREMY MAC MD Ot M54.5 LOW BACK PAIN 06/20/2017 JEREMY MAC MD Ot N39.0 URINARY TRACT INFECTION, SITE NOT SPECIF 06/20/2017 JEREMY MAC MD Ot Z87.19 PERSONAL HISTORY OF OTHER DISEASES OF TH 06/20/2017 JEREMY MAC MD Ot Z87.448 PERSONAL HISTORY OF OTHER DISEASES OF UR 06/20/2017 JEREMY MAC MD Ot Z87.59 PERSONAL HISTORY OF COMP OF PREG, CHLDBR 06/20/2017 JEREMY MAC MD Ot Z90.49 ACQUIRED ABSENCE OF OTHER SPECIFIED PART 06/20/2017 JEREMY MAC MD, Ot Z90.710 ACQUIRED ABSENCE OF BOTH CERVIX AND UTER 06/20/2017 JEREMY MAC MD Ot Z98.51 TUBAL LIGATION STATUS 06/20/2017 JEREMY MAC MD Ot Z98.84 BARIATRIC SURGERY STATUS 06/20/2017 SARAHI ERVIN APRN Ot R10.11 RIGHT UPPER QUADRANT PAIN 06/20/2017 QAMAR GODOY APRN Ot N64.4 MASTODYNIA 06/20/2017 SARAHI ERVIN PASTOR Ot S89.92XA UNSPECIFIED INJURY OF LEFT LOWER LEG, IN 06/20/2017 SARAHI ERVIN PASTOR Ot X58.XXXA EXPOSURE TO OTHER SPECIFIED FACTORS, INI 06/20/2017 SARAHI ERVIN PASTOR Ot Y99.8 OTHER EXTERNAL CAUSE STATUS 06/20/2017 WTASON PAINTER MD Ot R10.11 RIGHT UPPER QUADRANT PAIN 06/20/2017 WATSON PAINTER MD Ot R10.32 LEFT LOWER QUADRANT PAIN 06/20/2017 WATSON PAINTER MD Ot R10.31 RIGHT LOWER QUADRANT PAIN 06/20/2017 WATSON PAINTER MD Ot R10.32 LEFT LOWER QUADRANT PAIN 06/20/2017 LYSSA MILES PASTOR Ot K21.9 GASTRO-ESOPHAGEAL REFLUX DISEASE WITHOUT 06/20/2017 WATSON PAINTER MD Ot E66.01 MORBID (SEVERE) OBESITY DUE TO EXCESS CA 06/20/2017 WATSON PAINTER MD Ot Z01.812 ENCOUNTER FOR PREPROCEDURAL LABORATORY E 06/22/2017 JEREMY MAC MD Ot E11.9 TYPE 2 DIABETES MELLITUS WITHOUT COMPLIC 06/22/2017 JEREMY MAC MD Ot E78.00 PURE HYPERCHOLESTEROLEMIA, UNSPECIFIED 06/22/2017 JEREMY MAC MD Ot F41.9 ANXIETY DISORDER, UNSPECIFIED 06/22/2017 JEREMY MAC MD Ot M54.5 LOW BACK PAIN 06/22/2017 JEREMY MAC MD Ot N39.0 URINARY TRACT INFECTION, SITE NOT SPECIF 06/22/2017 JEREMY MAC MD Ot Z87.19 PERSONAL HISTORY OF OTHER DISEASES OF TH 06/22/2017 JEREMY MAC MD Ot Z87.448 PERSONAL HISTORY OF OTHER DISEASES OF UR 06/22/2017 JEREMY MAC MD Ot Z87.59 PERSONAL HISTORY OF COMP OF PREG, CHLDBR 06/22/2017 JEREMY MAC MD Ot Z90.49 ACQUIRED ABSENCE OF OTHER SPECIFIED PART 06/22/2017 JEREMY MAC MD Ot Z90.710 ACQUIRED ABSENCE OF BOTH CERVIX AND UTER 06/22/2017 JEREMY MAC MD Ot Z98.51 TUBAL LIGATION STATUS 06/22/2017 CHARLENE MAC MDUS J Ot Z98.84 BARIATRIC SURGERY STATUS 07/24/2017 WATSON PAINTER MD, Ot Z01.818 ENCOUNTER FOR OTHER PREPROCEDURAL EXAMIN 07/24/2017 WATSON PAINTER MD Ot Z12.11 ENCOUNTER FOR SCREENING FOR MALIGNANT NE 07/24/2017 WATSON PAINTER MD Ot Z80.0 FAMILY HISTORY OF MALIGNANT NEOPLASM OF 07/25/2017 WATSON PAINTER MD Ot Z01.818 ENCOUNTER FOR OTHER PREPROCEDURAL EXAMIN 07/25/2017 WATSON PAINTER MD, Ot Z12.11 ENCOUNTER FOR SCREENING FOR MALIGNANT NE 07/25/2017 WATSON PAINTER MD Ot Z80.0 FAMILY HISTORY OF MALIGNANT NEOPLASM OF 07/26/2017 SARAHI ERVIN PASTOR Ot R10.11 RIGHT UPPER QUADRANT PAIN 07/26/2017 QAMAR GODOY PASTOR Ot N64.4 MASTODYNIA 07/26/2017 SARAHI ERVNI PASTOR Ot S89.92XA UNSPECIFIED INJURY OF LEFT LOWER LEG, IN 07/26/2017 SARAHI ERVIN PASTOR Ot X58.XXXA EXPOSURE TO OTHER SPECIFIED FACTORS, INI 07/26/2017 SARAHI ERVIN PASTOR Ot Y99.8 OTHER EXTERNAL CAUSE STATUS 07/26/2017 WATSON PAINTER MD Ot R10.11 RIGHT UPPER QUADRANT PAIN 07/26/2017 WATSON PAINTER MD, Ot R10.32 LEFT LOWER QUADRANT PAIN 07/26/2017 WATSON PAINTER MD Ot R10.31 RIGHT LOWER QUADRANT PAIN 07/26/2017 WATSON PAINTER MD, Ot R10.32 LEFT LOWER QUADRANT PAIN 07/26/2017 LYSSA MILES PASTOR Ot K21.9 GASTRO-ESOPHAGEAL REFLUX DISEASE WITHOUT 07/26/2017 WATSON PAINTER MD Ot E66.01 MORBID (SEVERE) OBESITY DUE TO EXCESS CA 07/26/2017 WATSON PAINTER MD Ot Z01.812 ENCOUNTER FOR PREPROCEDURAL LABORATORY E Procedures Code [place] [address] XRAY KNEE RIGHT 1 OR 2 VIEWS 06/20/2012 ORTHO SONIA HOWE 06/20/2012 94063 XRAY FOOT LEFT 2 VIEWS 08/24/2012 ORTHOPEDI SONIA HOWE 08/24/2012 60380 JOINT INJECTION- INTERMEDIATE JOINT 11/15/2012 J1040 DEPO MEDROL 80 MG INJ 11/15/2012 77288 ROUTINE VENIPUNCTURE 04/22/2013 53294 CBC 04/22/2013 1322522 GFR CALC (RESULT ONLY) 04/22/2013 18291 CMP 04/22/2013 22729 LIPID PANEL 04/22/2013 66230 TSH 04/22/2013 96093 JOINT INJECTION - SMALL JOINT 09/19/2013 J1030 DEPO MEDROL 40 MG INJ 09/19/2013 78547 ROUTINE VENIPUNCTURE 03/04/2014 63471 MYCOPLASMA ANTIBODY 03/04/2014 12205 UA W/ CULTURE IF INDICATED 03/04/2014 34340 MONO TEST (IN-HOUSE) 03/04/2014 25952 CBC 03/04/2014 71930 XRAY CERVICAL SPINE, 2 OR 3 VIEWS 07/09/2014 88188 XRAY LUMBAR SPINE 2 OR 3 VIEWS 07/17/2014 [id number] EXCISION OF STOMACH, PERCUTANEOUS ENDOSC 11/17/2016 Results Test Result Range Complete blood count (CBC) with automated white blood cell (WBC) differential - 03/08/16 18:44 Blood leukocytes automated count (number/volume) 6.9 10*3/uL 4.3-11.0 Blood erythrocytes automated count (number/volume) 5.01 10*6/uL 4.35-5.85 Venous blood hemoglobin measurement (mass/volume) 14.0 g/dL 11.5-16.0 Blood hematocrit (volume fraction) 42 % 35-52 Automated erythrocyte mean corpuscular volume 83 [foz_us] 80-99 Automated erythrocyte mean corpuscular hemoglobin (mass per erythrocyte) 28 pg 25-34 Automated erythrocyte mean corpuscular hemoglobin concentration measurement ( mass/volume) 34 g/dL 32-36 Automated erythrocyte distribution width ratio 14.4 % 10.0-14.5 Automated blood platelet count (count/volume) 290 10*3/uL 130-400 Automated blood platelet mean volume measurement 9.8 [foz_us] 7.4-10.4 Automated blood neutrophils/100 leukocytes 63 % 42-75 Automated blood lymphocytes/100 leukocytes 22 % 12-44 Blood monocytes/100 leukocytes 10 % 0-12 Automated blood eosinophils/100 leukocytes 5 % 0-10 Automated blood basophils/100 leukocytes 1 % 0-10 Blood neutrophils automated count (number/volume) 4.3 10*3 1.8-7.8 Blood lymphocytes automated count (number/volume) 1.5 10*3 1.0-4.0 Blood monocytes automated count (number/volume) 0.7 10*3 0.0-1.0 Automated eosinophil count 0.3 10*3/uL 0.0-0.3 Automated blood basophil count (count/volume) 0.0 10*3/uL 0.0-0.1 Influenza virus A and B antigen detection - 03/08/16 18:44 FLU RESULT NEGATIVE FOR INFLUENZA A AND B ANTIGENS BY IA [facility] Comprehensive metabolic panel - 03/08/16 18:44 Serum or plasma sodium measurement (moles/volume) 136 mmol/L 135-145 Serum or plasma potassium measurement (moles/volume) 4.0 mmol/L 3.6-5.0 Serum or plasma chloride measurement (moles/volume) 107 mmol/L 98-107 Carbon dioxide 21 mmol/L 21-32 Serum or plasma anion gap determination (moles/volume) 8 mmol/L 5-14 Serum or plasma urea nitrogen measurement (mass/volume) 10 mg/dL 7-18 Serum or plasma creatinine measurement (mass/volume) 0.78 mg/dL 0.60-1.30 Serum or plasma urea nitrogen/creatinine mass ratio 13 [facility] Serum or plasma creatinine measurement with calculation of estimated glomerular filtration rate > [facility] Serum or plasma glucose measurement (mass/volume) 88 mg/dL 70-105 Serum or plasma calcium measurement (mass/volume) 9.4 mg/dL 8.5-10.1 Serum or plasma total bilirubin measurement (mass/volume) 0.4 mg/dL 0.1-1.0 Serum or plasma alkaline phosphatase measurement (enzymatic activity/volume) 64 U/L 40-136 Serum or plasma aspartate aminotransferase measurement (enzymatic activity/ volume) 16 U/L 5-34 Serum or plasma alanine aminotransferase measurement (enzymatic activity/volume ) 14 U/L 0-55 Serum or plasma protein measurement (mass/volume) 7.8 g/dL 6.4-8.2 Serum or plasma albumin measurement (mass/volume) 4.4 g/dL 3.2-4.5 Complete urinalysis with reflex to culture - 03/08/16 19:27 Urine color determination YELLOW NR Urine clarity determination SLIGHTLY CLOUDY NRG Urine pH measurement by test strip 6 5-9 Specific gravity of urine by test strip 1.020 1.016- 1.022 Urine protein assay by test strip, semi-quantitative 1+ NEGATIVE Urine glucose detection by automated test strip NEGATIVE NEGATIVE Erythrocytes detection in urine sediment by light microscopy NEGATIVE NEGATIVE Urine ketones detection by automated test strip NEGATIVE NEGATIVE Urine nitrite detection by test strip NEGATIVE NEGATIVE Urine total bilirubin detection by test strip NEGATIVE NEGATIVE Urine urobilinogen measurement by automated test strip (mass/volume) NORMAL NORMAL Urine leukocyte esterase detection by dipstick NEGATIVE NEGATIVE Automated urine sediment erythrocyte count by microscopy (number/high power field) NONE NRG Automated urine sediment leukocyte count by microscopy (number/high power field ) NONE NRG Bacteria detection in urine sediment by light microscopy MODERATE NRG Squamous epithelial cells detection in urine sediment by light microscopy 2-5 NRG Crystals detection in urine sediment by light microscopy NONE NRG Casts detection in urine sediment by light microscopy NONE NRG Mucus detection in urine sediment by light microscopy NEGATIVE NRG Complete urinalysis with reflex to culture NO NRG CBC With Differential/Platelet - 04/07/16 09:40 WBC 7.7 x10E3/uL 3.4-10.8 RBC 4.88 x10E6/uL 3.77-5.28 Hemoglobin 13.4 g/dL 11.1-15.9 Hematocrit 41.3 % 34.0-46.6 MCV 85 fL 79-97 MCH 27.5 pg 26.6-33.0 MCHC 32.4 g/dL 31.5-35.7 RDW 14.6 % 12.3-15.4 Platelets 308 x10E3/uL 150-379 Neutrophils 55 % Lymphs 33 % Monocytes 7 % Eos 4 % Basos 1 % Neutrophils (Absolute) 4.2 x10E3/uL 1.4-7.0 Lymphs (Absolute) 2.5 x10E3/uL 0.7-3.1 Monocytes(Absolute) 0.6 x10E3/uL 0.1-0.9 Eos (Absolute) 0.3 x10E3/uL 0.0-0.4 Baso (Absolute) 0.0 x10E3/uL 0.0-0.2 Immature Granulocytes 0 % Immature Grans (Abs) 0.0 x10E3/uL 0.0-0.1 Comp. Metabolic Panel (14) - 04/07/16 09:40 Glucose, Serum 88 mg/dL 65-99 BUN 12 mg/dL 6-24 Creatinine, Serum 0.59 mg/dL 0.57-1.00 eGFR If NonAfricn Am 113 mL/min/1.73 >59 eGFR If Africn Am 131 mL/min/1.73 >59 BUN/Creatinine Ratio 20 9-23 Sodium, Serum 138 mmol/L 134-144 Potassium, Serum 4.4 mmol/L 3.5-5.2 Chloride, Serum 102 mmol/L 96-106 Carbon Dioxide, Total 21 mmol/L 18-29 Calcium, Serum 9.1 mg/dL 8.7-10.2 Protein, Total, Serum 7.5 g/dL 6.0-8.5 Albumin, Serum 4.2 g/dL 3.5-5.5 Globulin, Total 3.3 g/dL 1.5-4.5 A/G Ratio 1.3 1.1-2.5 Bilirubin, Total 0.3 mg/dL 0.0-1.2 Alkaline Phosphatase, S 60 IU/L 39-117 AST (SGOT) 14 IU/L 0-40 ALT (SGPT) 12 IU/L 0-32 Lipid Panel - 04/07/16 09:40 Cholesterol, Total 192 mg/dL 100-199 Triglycerides 119 mg/dL 0-149 HDL Cholesterol 43 mg/dL >39 VLDL Cholesterol Jj 24 mg/dL 5-40 LDL Cholesterol Calc 125 mg/dL 0-99 Hemoglobin A1c - 04/07/16 09:40 Hemoglobin A1c 5.6 % 4.8-5.6 Insulin - 04/07/16 09:40 Insulin 13.8 uIU/mL 2.6-24.9 Vitamin D, 25-Hydroxy - 07/01/16 13:36 Vitamin D, 25-Hydroxy 15.0 ng/mL 30.0-100.0 Thyroid Sargent Profile - 07/01/16 13:36 TSH 2.690 uIU/mL 0.450-4.500 Serum or plasma choriogonadotropin ( test) detection - 07/24/16 14:10 Serum or plasma choriogonadotropin ( test) detection NEGATIVE NEGATIVE Complete blood count (CBC) with automated white blood cell (WBC) differential - 07/24/16 14:10 Blood leukocytes automated count (number/volume) 8.6 10*3/uL 4.3-11.0 Blood erythrocytes automated count (number/volume) 5.10 10*6/uL 4.35-5.85 Venous blood hemoglobin measurement (mass/volume) 14.0 g/dL 11.5-16.0 Blood hematocrit (volume fraction) 42 % 35-52 Automated erythrocyte mean corpuscular volume 83 [foz_us] 80-99 Automated erythrocyte mean corpuscular hemoglobin (mass per erythrocyte) 28 pg 25-34 Automated erythrocyte mean corpuscular hemoglobin concentration measurement ( mass/volume) 33 g/dL 32-36 Automated erythrocyte distribution width ratio 14.3 % 10.0-14.5 Automated blood platelet count (count/volume) 328 10*3/uL 130-400 Automated blood platelet mean volume measurement 9.9 [foz_us] 7.4-10.4 Automated blood neutrophils/100 leukocytes 59 % 42-75 Automated blood lymphocytes/100 leukocytes 30 % 12-44 Blood monocytes/100 leukocytes 6 % 0-12 Automated blood eosinophils/100 leukocytes 4 % 0-10 Automated blood basophils/100 leukocytes 1 % 0-10 Blood neutrophils automated count (number/volume) 5.1 10*3 1.8-7.8 Blood lymphocytes automated count (number/volume) 2.5 10*3 1.0-4.0 Blood monocytes automated count (number/volume) 0.5 10*3 0.0-1.0 Automated eosinophil count 0.4 10*3/uL 0.0-0.3 Automated blood basophil count (count/volume) 0.1 10*3/uL 0.0-0.1 PT panel in platelet poor plasma by coagulation assay - 07/24/16 14:10 Prothrombin time (PT) in platelet poor plasma by coagulation assay 13.3 s 12.2-14.7 INR in platelet poor plasma or blood by coagulation assay 1.0 0.8-1.4 Activated partial thromboplastin time (aPTT) in platelet poor plasma bycoagulation assay - 07/24/16 14:10 Activated partial thromboplastin time (aPTT) in platelet poor plasma bycoagulation assay 29 s 24-35 Comprehensive metabolic panel - 07/24/16 14:10 Serum or plasma sodium measurement (moles/volume) 140 mmol/L 135-145 Serum or plasma potassium measurement (moles/volume) 3.4 mmol/L 3.6-5.0 Serum or plasma chloride measurement (moles/volume) 106 mmol/L 98-107 Carbon dioxide 24 mmol/L 21-32 Serum or plasma anion gap determination (moles/volume) 10 mmol/L 5-14 Serum or plasma urea nitrogen measurement (mass/volume) 10 mg/dL 7-18 Serum or plasma creatinine measurement (mass/volume) 0.81 mg/dL 0.60-1.30 Serum or plasma urea nitrogen/creatinine mass ratio 12 NRG Serum or plasma creatinine measurement with calculation of estimated glomerular filtration rate > NRG Serum or plasma glucose measurement (mass/volume) 88 mg/dL 70-105 Serum or plasma calcium measurement (mass/volume) 9.2 mg/dL 8.5-10.1 Serum or plasma total bilirubin measurement (mass/volume) 0.4 mg/dL 0.1-1.0 Serum or plasma alkaline phosphatase measurement (enzymatic activity/volume) 57 U/L 40-136 Serum or plasma aspartate aminotransferase measurement (enzymatic activity/ volume) 18 U/L 5-34 Serum or plasma alanine aminotransferase measurement (enzymatic activity/volume ) 13 U/L 0-55 Serum or plasma protein measurement (mass/volume) 8.2 g/dL 6.4-8.2 Serum or plasma albumin measurement (mass/volume) 4.3 g/dL 3.2-4.5 Lipase - 07/24/16 14:10 Lipase 44 U/L 8-78 Complete urinalysis with reflex to culture - 07/24/16 15:27 Urine color determination YELLOW NRG Urine clarity determination CLEAR NRG Urine pH measurement by test strip 5 5-9 Specific gravity of urine by test strip 1.025 1.016- 1.022 Urine protein assay by test strip, semi-quantitative NEGATIVE NEGATIVE Urine glucose detection by automated test strip NEGATIVE NEGATIVE Erythrocytes detection in urine sediment by light microscopy NEGATIVE NEGATIVE Urine ketones detection by automated test strip NEGATIVE NEGATIVE Urine nitrite detection by test strip NEGATIVE NEGATIVE Urine total bilirubin detection by test strip NEGATIVE NEGATIVE Urine urobilinogen measurement by automated test strip (mass/volume) NORMAL NORMAL Urine leukocyte esterase detection by dipstick NEGATIVE NEGATIVE Automated urine sediment erythrocyte count by microscopy (number/high power field) NONE NRG Automated urine sediment leukocyte count by microscopy (number/high power field ) [HPF] NRG Bacteria detection in urine sediment by light microscopy FEW NRG Squamous epithelial cells detection in urine sediment by light microscopy 0-2 NRG Crystals detection in urine sediment by light microscopy PRESENT NRG Casts detection in urine sediment by light microscopy NONE NRG Mucus detection in urine sediment by light microscopy MODERATE NRG Complete urinalysis with reflex to culture YES NRG Hyaline casts detection in urine sediment by light microscopy 0-2 NRG Bacterial urine culture - 07/24/16 15:27 URINE CULTURE RESULTS <10,000/ML NRG Methicillin resistant Staphylococcus aureus (MRSA) screening culture - 10:15 Methicillin resistant Staphylococcus aureus (MRSA) screening culture NEG NRG Complete blood count (CBC) with automated white blood cell (WBC) differential - 07/28/16 10:23 Blood leukocytes automated count (number/volume) 7.1 10*3/uL 4.3-11.0 Blood erythrocytes automated count (number/volume) 4.67 10*6/uL 4.35-5.85 Venous blood hemoglobin measurement (mass/volume) 12.8 g/dL 11.5-16.0 Blood hematocrit (volume fraction) 38 % 35-52 Automated erythrocyte mean corpuscular volume 82 [foz_us] 80-99 Automated erythrocyte mean corpuscular hemoglobin (mass per erythrocyte) 27 pg 25-34 Automated erythrocyte mean corpuscular hemoglobin concentration measurement ( mass/volume) 33 g/dL 32-36 Automated erythrocyte distribution width ratio 14.4 % 10.0-14.5 Automated blood platelet count (count/volume) 285 10*3/uL 130-400 Automated blood platelet mean volume measurement 9.5 [foz_us] 7.4-10.4 Automated blood neutrophils/100 leukocytes 59 % 42-75 Automated blood lymphocytes/100 leukocytes 31 % 12-44 Blood monocytes/100 leukocytes 6 % 0-12 Automated blood eosinophils/100 leukocytes 3 % 0-10 Automated blood basophils/100 leukocytes 0 % 0-10 Blood neutrophils automated count (number/volume) 4.2 10*3 1.8-7.8 Blood lymphocytes automated count (number/volume) 2.2 10*3 1.0-4.0 Blood monocytes automated count (number/volume) 0.4 10*3 0.0-1.0 Automated eosinophil count 0.2 10*3/uL 0.0-0.3 Automated blood basophil count (count/volume) 0.0 10*3/uL 0.0-0.1 Blood type T Indirect antibody screen panel - 07/28/16 10:23 ABO+Rh group AP NRG Transfusion band number [id number] NRG Blood group antibody screen NEGATIVE NRG Complete urinalysis with reflex to culture - 07/30/16 18:35 Urine color determination YELLOW NRG Urine clarity determination CLEAR NRG Urine pH measurement by test strip 7 5-9 Specific gravity of urine by test strip 1.010 1.016- 1.022 Urine protein assay by test strip, semi-quantitative NEGATIVE NEGATIVE Urine glucose detection by automated test strip NEGATIVE NEGATIVE Erythrocytes detection in urine sediment by light microscopy NEGATIVE NEGATIVE Urine ketones detection by automated test strip NEGATIVE NEGATIVE Urine nitrite detection by test strip NEGATIVE NEGATIVE Urine total bilirubin detection by test strip NEGATIVE NEGATIVE Urine urobilinogen measurement by automated test strip (mass/volume) NORMAL NORMAL Urine leukocyte esterase detection by dipstick NEGATIVE NEGATIVE Automated urine sediment erythrocyte count by microscopy (number/high power field) NONE NRG Automated urine sediment leukocyte count by microscopy (number/high power field ) NONE NRG Bacteria detection in urine sediment by light microscopy NONE NRG Squamous epithelial cells detection in urine sediment by light microscopy 0-2 NRG Crystals detection in urine sediment by light microscopy NONE NRG Casts detection in urine sediment by light microscopy NONE NRG Mucus detection in urine sediment by light microscopy NEGATIVE NRG Complete urinalysis with reflex to culture NO NRG Complete blood count (CBC) with automated white blood cell (WBC) differential - 07/30/16 20:21 Blood leukocytes automated count (number/volume) 9.5 10*3/uL 4.3-11.0 Blood erythrocytes automated count (number/volume) 4.47 10*6/uL 4.35-5.85 Venous blood hemoglobin measurement (mass/volume) 12.3 g/dL 11.5-16.0 Blood hematocrit (volume fraction) 38 % 35-52 Automated erythrocyte mean corpuscular volume 85 [foz_us] 80-99 Automated erythrocyte mean corpuscular hemoglobin (mass per erythrocyte) 28 pg 25-34 Automated erythrocyte mean corpuscular hemoglobin concentration measurement ( mass/volume) 33 g/dL 32-36 Automated erythrocyte distribution width ratio 14.4 % 10.0-14.5 Automated blood platelet count (count/volume) 252 10*3/uL 130-400 Automated blood platelet mean volume measurement 9.8 [foz_us] 7.4-10.4 Automated blood neutrophils/100 leukocytes 58 % 42-75 Automated blood lymphocytes/100 leukocytes 30 % 12-44 Blood monocytes/100 leukocytes 9 % 0-12 Automated blood eosinophils/100 leukocytes 3 % 0-10 Automated blood basophils/100 leukocytes 1 % 0-10 Blood neutrophils automated count (number/volume) 5.5 10*3 1.8-7.8 Blood lymphocytes automated count (number/volume) 2.9 10*3 1.0-4.0 Blood monocytes automated count (number/volume) 0.9 10*3 0.0-1.0 Automated eosinophil count 0.2 10*3/uL 0.0-0.3 Automated blood basophil count (count/volume) 0.1 10*3/uL 0.0-0.1 Comprehensive metabolic panel - 07/30/16 20:21 Serum or plasma sodium measurement (moles/volume) 140 mmol/L 135-145 Serum or plasma potassium measurement (moles/volume) 4.3 mmol/L 3.6-5.0 Serum or plasma chloride measurement (moles/volume) 106 mmol/L 98-107 Carbon dioxide 25 mmol/L 21-32 Serum or plasma anion gap determination (moles/volume) 9 mmol/L 5-14 Serum or plasma urea nitrogen measurement (mass/volume) 11 mg/dL 7-18 Serum or plasma creatinine measurement (mass/volume) 0.75 mg/dL 0.60-1.30 Serum or plasma urea nitrogen/creatinine mass ratio 15 NRG Serum or plasma creatinine measurement with calculation of estimated glomerular filtration rate > NRG Serum or plasma glucose measurement (mass/volume) 88 mg/dL 70-105 Serum or plasma calcium measurement (mass/volume) 9.2 mg/dL 8.5-10.1 Serum or plasma total bilirubin measurement (mass/volume) 0.3 mg/dL 0.1-1.0 Serum or plasma alkaline phosphatase measurement (enzymatic activity/volume) 47 U/L 40-136 Serum or plasma aspartate aminotransferase measurement (enzymatic activity/ volume) 45 U/L 5-34 Serum or plasma alanine aminotransferase measurement (enzymatic activity/volume ) 59 U/L 0-55 Serum or plasma protein measurement (mass/volume) 7.3 g/dL 6.4-8.2 Serum or plasma albumin measurement (mass/volume) 4.0 g/dL 3.2-4.5 Serum or plasma C reactive protein measurement (mass/volume) - 07/30/16 20:21 Serum or plasma C reactive protein measurement (mass/volume) 3.47 mg /dL 0.00-0.50 Complete blood count (CBC) with automated white blood cell (WBC) differential - 11/10/16 11:50 Blood leukocytes automated count (number/volume) 7.7 10*3/uL 4.3-11.0 Blood erythrocytes automated count (number/volume) 5.06 10*6/uL 4.35-5.85 Venous blood hemoglobin measurement (mass/volume) 14.0 g/dL 11.5-16.0 Blood hematocrit (volume fraction) 41 % 35-52 Automated erythrocyte mean corpuscular volume 81 [foz_us] 80-99 Automated erythrocyte mean corpuscular hemoglobin (mass per erythrocyte) 28 pg 25-34 Automated erythrocyte mean corpuscular hemoglobin concentration measurement ( mass/volume) 34 g/dL 32-36 Automated erythrocyte distribution width ratio 14.5 % 10.0-14.5 Automated blood platelet count (count/volume) 322 10*3/uL 130-400 Automated blood platelet mean volume measurement 9.6 [foz_us] 7.4-10.4 Automated blood neutrophils/100 leukocytes 57 % 42-75 Automated blood lymphocytes/100 leukocytes 29 % 12-44 Blood monocytes/100 leukocytes 9 % 0-12 Automated blood eosinophils/100 leukocytes 4 % 0-10 Automated blood basophils/100 leukocytes 1 % 0-10 Blood neutrophils automated count (number/volume) 4.4 10*3 1.8-7.8 Blood lymphocytes automated count (number/volume) 2.2 10*3 1.0-4.0 Blood monocytes automated count (number/volume) 0.7 10*3 0.0-1.0 Automated eosinophil count 0.3 10*3/uL 0.0-0.3 Automated blood basophil count (count/volume) 0.0 10*3/uL 0.0-0.1 Methicillin resistant Staphylococcus aureus (MRSA) screening culture - 11:50 Methicillin resistant Staphylococcus aureus (MRSA) screening culture NEG NRG Capillary blood glucose measurement by glucometer (mass/volume) - 11/17/16 19: 31 Capillary blood glucose measurement by glucometer (mass/volume) 136 mg/dL 70-110 Automated blood complete blood count (hemogram) panel - 11/18/16 06:15 Blood leukocytes automated count (number/volume) 11.8 10*3/uL 4.3-11.0 Blood erythrocytes automated count (number/volume) 4.40 10*6/uL 4.35-5.85 Venous blood hemoglobin measurement (mass/volume) 12.2 g/dL 11.5-16.0 Blood hematocrit (volume fraction) 36 % 35-52 Automated erythrocyte mean corpuscular volume 82 [foz_us] 80-99 Automated erythrocyte mean corpuscular hemoglobin (mass per erythrocyte) 28 pg 25-34 Automated erythrocyte mean corpuscular hemoglobin concentration measurement ( mass/volume) 34 g/dL 32-36 Automated erythrocyte distribution width ratio 14.5 % 10.0-14.5 Automated blood platelet count (count/volume) 268 10*3/uL 130-400 Automated blood platelet mean volume measurement 10.0 [foz_us] 7.4-10.4 Whole blood basic metabolic panel - 11/18/16 06:15 Serum or plasma sodium measurement (moles/volume) 137 mmol/L 135-145 Serum or plasma potassium measurement (moles/volume) 3.4 mmol/L 3.6-5.0 Serum or plasma chloride measurement (moles/volume) 106 mmol/L 98-107 Carbon dioxide 21 mmol/L 21-32 Serum or plasma anion gap determination (moles/volume) 10 mmol/L 5-14 Serum or plasma urea nitrogen measurement (mass/volume) 6 mg/dL 7-18 Serum or plasma creatinine measurement (mass/volume) 0.65 mg/dL 0.60-1.30 Serum or plasma urea nitrogen/creatinine mass ratio 9 NRG Serum or plasma creatinine measurement with calculation of estimated glomerular filtration rate > NRG Serum or plasma glucose measurement (mass/volume) 125 mg/dL 70-105 Serum or plasma calcium measurement (mass/volume) 9.0 mg/dL 8.5-10.1 Drug Screen + ETOH - 05/20/17 20:41 Family Practice Nurse Practitioner [place] To Donor ID By Employer Representitive Ethanol, Urine <10.00 mg/dL 20.00-80.00 [facility]ident Temperature In Range YES Deg F 90.00-100.00 Urine Amphetamines NEGATIVE Urine Barbiturates NEGATIVE Urine Benzodiazepines NEGATIVE Urine Cocaine NEGATIVE Urine MDMA NEGATIVE Urine Methadone NEGATIVE Urine Methamphetamines NEGATIVE Urine Opiates NEGATIVE Urine Oxycodone NEGATIVE Urine PCP NEGATIVE Urine THC Metabolite NEGATIVE Complete urinalysis with reflex to culture - 06/20/17 00:25 Urine color determination DARLIN NRG Urine clarity determination SLIGHTLY CLOUDY NRG Urine pH measurement by test strip 5 5-9 Specific gravity of urine by test strip 1.025 1.016- 1.022 Urine protein assay by test strip, semi-quantitative 2+ NEGATIVE Urine glucose detection by automated test strip NEGATIVE NEGATIVE Erythrocytes detection in urine sediment by light microscopy NEGATIVE NEGATIVE Urine ketones detection by automated test strip NEGATIVE NEGATIVE Urine nitrite detection by test strip NEGATIVE NEGATIVE Urine total bilirubin detection by test strip 1+ NEGATIVE Urine urobilinogen measurement by automated test strip (mass/volume) 4 mg/dL NORMAL Urine leukocyte esterase detection by dipstick 1+ NEGATIVE Automated urine sediment erythrocyte count by microscopy (number/high power field) NONE NRG Automated urine sediment leukocyte count by microscopy (number/high power field ) [HPF] NRG Bacteria detection in urine sediment by light microscopy MODERATE NRG Squamous epithelial cells detection in urine sediment by light microscopy 2-5 NRG Crystals detection in urine sediment by light microscopy NONE NRG Casts detection in urine sediment by light microscopy NONE NRG Mucus detection in urine sediment by light microscopy LARGE NRG Complete urinalysis with reflex to culture YES NRG Bacterial urine culture - 06/20/17 00:25 URINE CULTURE RESULTS <10,000/ML NRG Complete blood count (CBC) with automated white blood cell (WBC) differential - 06/20/17 00:27 Blood leukocytes automated count (number/volume) 3.2 10*3/uL 4.3-11.0 Blood erythrocytes automated count (number/volume) 4.58 10*6/uL 4.35-5.85 Venous blood hemoglobin measurement (mass/volume) 13.2 g/dL 11.5-16.0 Blood hematocrit (volume fraction) 39 % 35-52 Automated erythrocyte mean corpuscular volume 84 [foz_us] 80-99 Automated erythrocyte mean corpuscular hemoglobin (mass per erythrocyte) 29 pg 25-34 Automated erythrocyte mean corpuscular hemoglobin concentration measurement ( mass/volume) 34 g/dL 32-36 Automated erythrocyte distribution width ratio 14.9 % 10.0-14.5 Automated blood platelet count (count/volume) 157 10*3/uL 130-400 Automated blood platelet mean volume measurement 9.4 [foz_us] 7.4-10.4 Automated blood neutrophils/100 leukocytes 55 % 42-75 Automated blood lymphocytes/100 leukocytes 31 % 12-44 Blood monocytes/100 leukocytes 12 % 0-12 Automated blood eosinophils/100 leukocytes 0 % 0-10 Automated blood basophils/100 leukocytes 1 % 0-10 Blood neutrophils automated count (number/volume) 1.8 10*3 1.8-7.8 Blood lymphocytes automated count (number/volume) 1.0 10*3 1.0-4.0 Blood monocytes automated count (number/volume) 0.4 10*3 0.0-1.0 Automated eosinophil count 0.0 10*3/uL 0.0-0.3 Automated blood basophil count (count/volume) 0.0 10*3/uL 0.0-0.1 Comprehensive metabolic panel - 06/20/17 00:27 Serum or plasma sodium measurement (moles/volume) 135 mmol/L 135-145 Serum or plasma potassium measurement (moles/volume) 3.9 mmol/L 3.6-5.0 Serum or plasma chloride measurement (moles/volume) 105 mmol/L 98-107 Carbon dioxide 23 mmol/L 21-32 Serum or plasma anion gap determination (moles/volume) 7 mmol/L 5-14 Serum or plasma urea nitrogen measurement (mass/volume) 13 mg/dL 7-18 Serum or plasma creatinine measurement (mass/volume) 0.75 mg/dL 0.60-1.30 Serum or plasma urea nitrogen/creatinine mass ratio 17 NRG Serum or plasma creatinine measurement with calculation of estimated glomerular filtration rate > NRG Serum or plasma glucose measurement (mass/volume) 104 mg/dL 70-105 Serum or plasma calcium measurement (mass/volume) 8.9 mg/dL 8.5-10.1 Serum or plasma total bilirubin measurement (mass/volume) 0.7 mg/dL 0.1-1.0 Serum or plasma alkaline phosphatase measurement (enzymatic activity/volume) 61 U/L 40-136 Serum or plasma aspartate aminotransferase measurement (enzymatic activity/ volume) 39 U/L 5-34 Serum or plasma alanine aminotransferase measurement (enzymatic activity/volume ) 28 U/L 0-55 Serum or plasma protein measurement (mass/volume) 7.8 g/dL 6.4-8.2 Serum or plasma albumin measurement (mass/volume) 4.1 g/dL 3.2-4.5 Serum or plasma C reactive protein measurement (mass/volume) - 06/20/17 00:27 Serum or plasma C reactive protein measurement (mass/volume) 1.14 mg /dL 0.00-0.50 Encounters ACCT No. Visit Date/Time Discharge Status Pt. Type Provider Facility Loc./Unit Complaint [id number] 07/17/2014 09:33:00 07/17/2014 23:59:59 CLS Outpatient VERONIQUE VELA APRN [id number] 07/09/2014 15:13:00 07/09/2014 23:59:59 CLS Outpatient VERONIQUE VELA APRN [id number] 05/01/2014 09:18:00 05/01/2014 23:59:59 CLS Outpatient VERONIQUE VELA APRN [id number] 03/04/2014 13:51:00 03/04/2014 23:59:59 CLS Outpatient VERONIQUE VELA APRN [id number] 02/03/2014 10:43:00 02/03/2014 23:59:59 CLS Outpatient ROLY POPE DO [id number] 10/22/2013 10:48:00 10/22/2013 23:59:59 CLS Outpatient BERTHA RIOS APRN [id number] 09/19/2013 11:44:00 09/19/2013 23:59:59 CLS Outpatient ROLY POPE DO [id number] 04/22/2013 08:47:00 04/22/2013 23:59:59 CLS Outpatient VERONIQUE VELA APRN [id number] 06/20/2012 08:41:00 06/20/2012 23:59:59 CLS Outpatient ADELINE BASSETT APRN [id number] 04/19/2010 00:00:00 04/19/2010 23:59:59 CLS Outpatient [id number] 11/15/2012 14:41:00 Document Registration [id number] 08/24/2012 10:24:00 Document Registration [id number] 05/20/2017 20:19:00 05/20/2017 21:08:00 [id number]2016 10:52:00 04/08/2016 12:21:00 DIS Out[place] [place] [id number] 04/08/2016 11:31:22 Document Registration [id number] 07/04/2016 14:08:00 Document Registration [id number] 04/08/2016 18:06:00 Document Registration [id number] 07/24/2017 05:35:00 07/24/2017 13:32:00 DIS Outpatient WATSON PAINTER MD [facility] PREOP COLONOSCOPY [id number] 06/20/2017 00:12:00 06/20/2017 01:25:00 DIS Emergency JEREMY MAC MD [facility] ER MIDDLE LOWER BACK LOCKING UP,ABD PAIN PELVIC P [id number] 11/17/2016 11:45:00 11/18/2016 12:50:00 DIS Inpatient WATSON PAINTER MD [facility] 4TH MORBID OBESITY [id number] 11/10/2016 11:38:00 11/10/2016 23:59:59 CLS Outpatient WATSON PAINTER MD [facility] PREOP MORBID OBESITY [id number] 09/07/2016 09:49:00 09/07/2016 23:59:59 CLS Outpatient LYSSA MILES PASTOR [facility] RAD REFLUX [id number] 07/30/2016 18:13:00 07/30/2016 22:03:00 DIS Emergency NINO WINKLER MD [facility] ER POST OP/SOA [id number] 07/28/2016 09:16:00 07/28/2016 16:00:00 DIS Outpatient HERSON VENTURA DO S [facility] SDC LEFT ABDOMINAL MASS [id number] 07/24/2016 13:54:00 07/24/2016 18:01:00 DIS Emergency NINO WINKLER MD [facility] ER GALLBLADDER/BACK PAIN [id number] 07/22/2016 08:52:00 07/22/2016 23:59:59 CLS Outpatient WATSON PAINTER MD [facility] CARD ABD PAIN [id number] 07/21/2016 13:36:00 07/21/2016 23:59:59 CLS Outpatient WATSON PAINTER MD [facility] RAD LLQ PAIN [id number] 04/21/2016 11:45:00 04/21/2016 14:50:00 DIS Emergency JAELYN MORALES PASTOR [facility] ER RIGHT LOWER BACK PAIN [id number] 03/08/2016 17:20:00 03/08/2016 20:33:00 DIS Emergency ADILIA RAHMAN [facility] ER SORE THROAT, CHILLS, BACK PAIN [id number] 11/23/2015 15:57:00 11/23/2015 23:59:59 CLS Outpatient SARAHI ERVIN PASTOR [facility] RAD PAIN IN LT KNEE [id number] 11/19/2015 13:24:00 11/19/2015 23:59:59 CLS Outpatient SARAHI ERVIN PASTOR [facility] RAD PAIN IN LT KNEE [id number] 09/10/2015 19:22:00 09/10/2015 22:20:00 DIS Emergency JUSTUS LIN DO [facility] ER RIGHT ARM PAIN;WEAKNESS; FEVER [id number] 05/22/2015 08:01:00 05/22/2015 23:59:59 CLS Outpatient SARAHI ERVIN PASTOR [facility] RAD LT KNEE INJURY [id number] 03/31/2015 08:56:00 03/31/2015 23:59:59 CLS Outpatient QAMAR GODOY PASTOR [facility] RAD SCREENING [id number] 03/13/2015 11:30:00 03/13/2015 23:59:59 CLS Outpatient SARAHI ERVIN PASTOR [facility] CARD RIGHT UPPER QUADRANT PAIN [id number] 03/04/2015 13:12:00 03/04/2015 23:59:59 CLS Outpatient SARAHI ERVIN PASTOR [facility] RAD RIGHT UPPER QUADRANT PAIN [id number] 03/02/2015 18:48:00 03/02/2015 22:51:00 DIS Emergency ADILIA RAHMAN [facility] ER ABD PAIN/VOMITING/ DIARRHEA [id number] 02/07/2015 09:15:00 02/07/2015 10:16:00 DIS Emergency YUMIKO MARTINEZ MD [facility] ER PAINFUL BREATHING/ SORE THROAT [id number] 11/24/2014 15:36:00 11/24/2014 19:12:00 DIS Emergency ADILIA RAHMAN [facility] ER [id number] 07/12/2014 15:25:00 07/12/2014 16:30:00 DIS Emergency JAELYN MORALES PASTOR [facility] ER [id number] 09/12/2013 11:25:00 09/12/2013 23:59:59 CLS Outpatient [id number] 08/26/2013 14:16:00 08/26/2013 16:45:00 DIS Emergency JAELYN MORALES PASTOR [facility] ER [id number] 08/05/2013 10:42:00 08/05/2013 12:25:00 DIS Emergency JAELYN MORALES PASTOR [facility] ER [id number] 11/10/2012 13:43:00 11/10/2012 23:59:59 CLS Outpatient [id number] 07/26/2017 11:13:00 ACT Outpatient WATSON PAINTER MD [facility] ENDO SCREENING [id number] 07/12/2014 15:26:00 Document Registration [id number] 03/07/2010 15:59:00 Document Registration [id number] 09/18/2009 08:18:00 Document Registration [id number] 07/24/2009 17:49:00 Document Registration [id number] 05/17/2017 12:00:00 05/17/2017 23:59:59 CLS Outpatient SARAHI ERVIN [facility]
--- NOTE | 2017-07-27 01:03 | OPERATIVE REPORT ---
DATE OF SERVICE: 07/26/2017 ATTENDING PRIMARY CARE PHYSICIAN: Justus Sen APRN. PREOPERATIVE DIAGNOSIS: Family history of colon cancer. POSTOPERATIVE DIAGNOSIS: Mild chronic stage I external and internal hemorrhoids, end of the rectum and colon were normal. PROCEDURE: Colonoscopy. SURGEON: Watson Villalba MD ANESTHESIA: Conscious sedation. ESTIMATED BLOOD LOSS: Minimal. FINDINGS: Mild chronic stage I external and internal hemorrhoids. The remainder of the rectum and colon were normal. There were no polyps or any neoplasms identified. DISPOSITION: The patient tolerated the procedure well. INDICATIONS: The patient is a 41-year-old female known to us. We had seen her in 2017 for right upper abdominal quadrant pain and found to have symptomatic chronic calculous cholecystitis. She underwent a laparoscopic gastric sleeve resection by us on 11/17/2016. She then underwent left salpingo-oophorectomy and laparoscopic gastric sleeve resection on 07/28/2016. She reports that she does have a family history of colon cancer with her father being diagnosed with the disease in his mid 60s. She does not report any red blood per rectum nor any dark tarry stools. DESCRIPTION OF PROCEDURE: The patient was brought to the endoscopy suite, laid in the left lateral decubitus position. After adequate IV pain and sedating medications and conscious sedation anesthesia, a digital rectal examination was performed. Mild chronic stage I external and internal hemorrhoids were identified, which were not actively edematous nor inflamed and no bleeding. Normal sphincter tone was felt and there were no palpable masses. The endoscope was then intubated to the anus and the rectum gently insufflated. The endoscope was then advanced to the valves of Rob[place] of the rectum with no polyps or neoplasms identified. The endoscope was then advanced through the sigmoid colon where no diverticulosis identified. The endoscope was then advanced to the remainder of the descending, transverse, and ascending colon to the cecum. These segments were normal. There were no polyps or any neoplasms identified throughout the colon or rectum. The endoscope was then slowly withdrawn while taking a second look and suctioning of residual air with no additional findings. The patient tolerated the procedure well. We will recommend medical management with a high fiber diet with at least 25 grams of fiber per day as well as at least 64 fluid ounces of water daily to promote soft stools on a daily basis. We will recommend a followup colonoscopy in approximately 5 years. Job ID: [id number] DocumentID: [id number] Dictated Date: 07/26/2017 13:53:33 Double Bass Player Date: 07/27/2017 01:03:19 Dictated By: WATSON VILLALBA MD
== END 2017-07-26 14:40 | disposition home or self-care (01) ==
LOC: ENDO 11:13
PROVIDERS: ATTEND Surgery
DX: Z12.11 Encounter for screening for malignant neoplasm of colon (principal); K64.0 First degree hemorrhoids; Z80.0 Family history of malignant neoplasm of digestive organs; Z80.1 Family history of malignant neoplasm of trachea, bronchus and lung

== ENCOUNTER 2017-10-05 21:37 | Emergency (ER) | payer OTHER ==
[~2017-10-05] VITALS: Ht 157.5 cm; Wt 70.3 kg
[2017-10-05 23:08] LABS: BILIRUBIN,URINE NEGATIVE (NEGATIVE); CLARITY,URINE CLEAR; COLOR,URINE YELLOW; GLUCOSE, URINE (UA) NEGATIVE (NEGATIVE); KETONES,URINE NEGATIVE (NEGATIVE); LEUKOCYTE ESTERASE ,URINE 1+ (NEGATIVE); NITRITE,URINE NEGATIVE (NEGATIVE); PH,URINE 6 (5-9); PROTEIN,URINE NEGATIVE (NEGATIVE); UROBILINOGEN,URINE 4 MG/DL (NORMAL)
[2017-10-05 23:17] LABS: BASOPHILS % (AUTO) 0 % (0-10); EOSINOPHILS # (AUTO) 0.2 10^3/uL (0.0-0.3); EOSINOPHILS % (AUTO) 2 % (0-10); HEMATOCRIT 37 % (35-52); HEMOGLOBIN 12.5 G/DL (11.5-16.0); LYMPHOCYTES # (AUTO) 2.3 X 10^3 (1.0-4.0); LYMPHOCYTES % (AUTO) 34 % (12-44); MEAN CORPUSCULAR HEMOGLOBIN 29 PG (25-34); MEAN CORPUSCULAR HGB CONC 34 G/DL (32-36); MEAN CORPUSCULAR VOLUME 86 FL (80-99); MEAN PLATELET VOLUME 9.6 FL (7.4-10.4); MONOCYTES # (AUTO) 0.6 X 10^3 (0.0-1.0); MONOCYTES % (AUTO) 9 % (0-12); NEUTROPHILS # (AUTO) 3.6 X 10^3 (1.8-7.8); NEUTROPHILS % (AUTO) 54 % (42-75); PLATELET COUNT 229 10^3/uL (130-400); RED BLOOD COUNT 4.26 10^6/uL (4.35-5.85); RED CELL DISTRIBUTION WIDTH 14.4 % (10.0-14.5); WHITE BLOOD COUNT 6.7 10^3/uL (4.3-11.0)
[2017-10-05 23:17] LABS: BACTERIA,URINE FEW /HPF; WBC,URINE 25-50 /HPF
[2017-10-05 23:36] LABS: ALANINE AMINOTRANSFERASE 11 U/L (0-55); ALBUMIN 3.9 GM/DL (3.2-4.5); ALKALINE PHOSPHATASE 47 U/L (40-136); BILIRUBIN,TOTAL 0.4 MG/DL (0.1-1.0); BUN/CREATININE RATIO 18; CALCIUM 9.3 MG/DL (8.5-10.1); CARBON DIOXIDE 23 MMOL/L (21-32); CHLORIDE 109 MMOL/L (98-107); CREATININE SERUM 0.88 MG/DL (0.60-1.30); GFR ESTIMATED > 60; GLUCOSE 88 MG/DL (70-105); LIPASE 46 U/L (8-78); POTASSIUM 4.3 MMOL/L (3.6-5.0); SODIUM 141 MMOL/L (135-145); TOTAL PROTEIN 7.4 GM/DL (6.4-8.2)
[2017-10-06] MEDS ORDERED: LIDOCAINE 2% VISCOUS 15 ML UDC PO ONE (00:30)
[2017-10-06] MEDS ORDERED: ANTACID SUSP 30 ML UDC (MYLANTA) PO ONE (00:30)
[2017-10-06] MEDS ORDERED: ONDANSETRON 4 MG/2 ML (SDV) Z0FRAN IVP ONE (00:30)
[2017-10-06] MEDS ORDERED: OMEP20TA7 PO (01:17)
[2017-10-06] MEDS ORDERED: FAMO-119 PO (01:17)
--- NOTE | 2017-10-06 01:17 | ED Abdominal Pain ---
General Chief Complaint: Abdominal/GI Problems Stated Complaint: L SIDE ABD PAIN GOING TO L SHOULDER/BACK Nursing Triage Note: PATIENT HERE FOR COMPLAINTS OF LUQ PAIN THAT RADIATES TO SHOULDER AND BACK. SHE IS NAUSEA WITH ANY EATING OR DRINKING. Sepsis Screen: No Definite Risk Source of Information: Patient Exam Limitations: No Limitations History of Present Illness Date Seen by Provider: Oct 05, 2017 Time Seen by Provider: 22:46 Initial Comments This 42-year-old woman presents to the emergency room with complaints of left upper quadrant pain for the last 2 days. She very easily becomes nauseated with food or drinking. She denies vomiting. She does sometimes have constipation. Her last bowel movement was earlier today and was unremarkable. She reports temperatures at home of up to 100. She has had a hysterectomy. 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 She has associated lower back ache. She has history of gastric sleeve placed by Dr. Villalba. She has had colonoscopy previously as well. Her gallbladder and appendix are surgically absent. She has a prior history of diverticulitis and irritable bowel syndrome as well. She is afebrile at present. Allergies and Home Medications Allergies Coded Allergies: No Known Drug Allergies (Unverified , 11/10/16) Home Medications Famotidine 20 Mg Tablet, 20 MG PO BID Prescribed by: NINO SUMNER on 10/06/17116 Omeprazole 20 Mg Tablet.dr, 20 MG PO DAILY Prescribed by: NINO SUMNER on 10/06/17116 Patient Home Medication List Home Medication List Reviewed: Yes Review of Systems Constitutional: no symptoms reported EENTM: No Symptoms Reported Respiratory: No Symptoms Reported Cardiovascular: No Symptoms Reported Gastrointestinal: See HPI Genitourinary: No Symptoms Reported Musculoskeletal: no symptoms reported Skin: no symptoms reported Psychiatric/Neurological: No Symptoms Reported Endocrine: No Symptoms Reported Past Zurmgaq-Djevzc-Igmagx Hx Past Med/Social Hx: Reviewed and Corrections made Patient Social History Alcohol Use: Denies Use Number of Drinks Today: AA Alcohol Beverage of Choice: Beer Recreational Drug Use: No Smoking Status: Never a Smoker 2nd Hand Smoke Exposure: No Recent Foreign Travel: No Contact w/Someone Who Travel: No Recent Infectious Disease Expo: No Recent Hopitalizations: No Physical Abuse: No Sexual Abuse: No Immunizations Up To Date Tetanus Booster (TDap): Unknown Date of Influenza Vaccine: Jan 25, 2015 Seasonal Allergies Seasonal Allergies: No Past Medical History Surgeries: Yes (LEFT KNEE X2 SCOPE, RIGHT KNEE SCOPE, c/s x4, gastric sleeve, ) Appendectomy, Section, Gallbladder, Hysterectomy, Oophorectomy, Orthopedic, Tubal Ligation Respiratory: No Currently Using CPAP: No Currently Using BIPAP: No Cardiac: No High Cholesterol Neurological: No Reproductive Disorders: No Female Reproductive Disorders: 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 0oz. 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, no motor/sensory deficits, alert, normal mood/affect, oriented x 3 Skin: normal color, warm/dry Progress/Results/Core Measures Results/Orders Lab Results Laboratory Tests Test 10/05/17 21:38 10/05/17 22:57 10/05/17 23:07 Range/Units Lab Scanned Report Referred Lab Report [id number] Urine Color YELLOW Urine Clarity CLEAR Urine pH 6 5-9 Urine Specific [place] 1.025 H 1.016-1.022 Urine Protein NEGATIVE NEGATIVE Urine Glucose (UA) NEGATIVE NEGATIVE Urine Ketones NEGATIVE NEGATIVE Urine Nitrite NEGATIVE NEGATIVE Urine Bilirubin NEGATIVE NEGATIVE Urine Urobilinogen 4 H NORMAL MG/DL Urine Leukocyte Esterase 1+ H NEGATIVE Urine RBC (Auto) NEGATIVE NEGATIVE Urine RBC NONE /HPF Urine WBC 25-50 H /HPF Urine Squamous Epithelial Cells 2-5 /HPF Urine Crystals NONE /LPF Urine Bacteria FEW H /HPF Urine Casts NONE /LPF Urine Mucus MODERATE H /LPF Urine Culture Indicated YES White Blood Count 6.7 4.3-11.0 10^3/uL Red Blood Count 4.26 L 4.35-5.85 10^6/uL Hemoglobin 12.5 11.5-16.0 G/DL Hematocrit 37 35-52 % Mean Corpuscular Volume 86 80-99 FL Mean Corpuscular Hemoglobin 29 25-34 PG Mean Corpuscular Hemoglobin Concent 34 32-36 G/DL Red Cell Distribution Width 14.4 10.0-14.5 % Platelet Count 229 130-400 10^3/uL Mean Platelet Volume 9.6 7.4-10.4 FL Neutrophils (%) (Auto) 54 42-75 % Lymphocytes (%) (Auto) 34 12-44 % Monocytes (%) (Auto) 9 0-12 % Eosinophils (%) (Auto) 2 0-10 % Basophils (%) (Auto) 0 0-10 % Neutrophils # (Auto) 3.6 1.8-7.8 X 10^3 Lymphocytes # (Auto) 2.3 1.0-4.0 X 10^3 Monocytes # (Auto) 0.6 0.0-1.0 X 10^3 Eosinophils # (Auto) 0.2 0.0-0.3 10^3/uL Basophils # (Auto) 0.0 0.0-0.1 10^3/uL Sodium Level 141 135-145 MMOL/L Potassium Level 4.3 3.6-5.0 MMOL/L Chloride Level 109 H 98-107 MMOL/L Carbon Dioxide Level 23 21-32 MMOL/L Anion Gap 9 5-14 MMOL/L Blood Urea Nitrogen 16 7-18 MG/DL Creatinine 0.88 0.60-1.30 MG/DL Estimat Glomerular Filtration Rate > 60 BUN/Creatinine Ratio 18 Glucose Level 88 70-105 MG/DL Calcium Level 9.3 8.5-10.1 MG/DL Total Bilirubin 0.4 0.1-1.0 MG/DL Aspartate Amino Transf (AST/SGOT) 18 5-34 U/L Alanine Aminotransferase (ALT/SGPT) 11 0-55 U/L Alkaline Phosphatase 47 40-136 U/L Total Protein 7.4 6.4-8.2 GM/DL Albumin 3.9 3.2-4.5 GM/DL Lipase 46 8-78 U/L Micro Results Microbiology 10/05/17 Urine Culture - Final, Complete Escherichia coli My Orders Orders - NINO WINKLER MD Ondansetron Injection (Zofran Injectio (10/06/17 00:30) Lidocaine 2% Viscous 15 Ml (Xylocaine Vi (10/06/17 00:30) Antacid Suspension (Mylanta Suspension (10/06/17 00:30) Iv Push Front Desk Ed (10/06/17 ) Iv Push Front Desk Ed (10/05/17 ) Medications Given in ED Vital Signs/I&O Blood Pressure Mean: 81 Urine -Bedside: Negative Progress Progress Note #1: Progress Note Labs were unremarkable. Symptoms improved with Zofran and GI cocktail suggesting gastritis. Follow-up with Dr. Villalba was recommended. Progress Note #2: Progress Note October 18, 2017, 14:22 - this chart was reviewed for Sine-Off and urine culture was noted. Patient was contacted and has not been started on antibiotic therapy yet. Patient reports symptoms of urinary odor. Cipro description is being transmitted to [facility]. Departure Impression Primary Impression: Left upper quadrant pain Additional Impressions: Nausea Urinary tract infection Qualified Codes: N39.0 - Urinary tract infection, site not specified Disposition: 01 HOME, SELF-CARE Condition: Improved Departure-Patient Inst. Decision time for Depature: 01:15 Referrals: [facility] [place] (PCP) Primary Care Physician SARAHI ERVIN APRN (Family) Primary Care Physician Patient Instructions: Acute Abdomen (Belly Pain), Adult (DC), Gastritis (DC) Add. Discharge Instructions: Take your antacid medications as prescribed. Call Dr. VILLALBA's office later today. Avoid the following: Eating large meals, eating close to bedtime, caffeine, carbonation, citrus fruits and juices, chocolate, tomato products, alcohol, tobacco products, mints, spicy foods, fatty or greasy foods, NSAID medications such as ibuprofen or naproxen, or anything else you know irritates your stomach. Use Zofran (ondansetron) as prescribed for nausea and vomiting. Return to care if symptoms are worsening. You may take Tylenol (acetaminophen) for pain. All discharge instructions reviewed with patient and/or family. Voiced understanding. Scripts Ciprofloxacin HCl (Cipro) 500 Mg Tablet 500 MG PO BID, #14 TAB Prov: NINO WINKLER MD 10/18/17 Omeprazole (Omeprazole) 20 Mg Tablet.dr 20 MG PO DAILY, #30 TAB Prov: NINO WINKLER MD 10/06/17 Famotidine (Pepcid) 20 Mg Tablet 20 MG PO BID, #60 TAB Prov: NINO WINKLER MD 10/06/17 Copy Copies To 1: WATSON VILLALBA MD Copies To 2: ROLY POPE JOSHUA T MD Oct 06, 2017 01:17
[2017-10-06 01:35] VITALS: BP 105/69
[2017-10-18] MEDS ORDERED: CIPR-225 PO (14:24)
== END 2017-10-06 01:35 | disposition home or self-care (01) ==
LOC: EDUNIT# 21:37 → ER 21:38
DX: R10.12 Left upper quadrant pain (principal); R11.0 Nausea; E78.00 Pure hypercholesterolemia, unspecified; E11.9 Type 2 diabetes mellitus without complications; F41.9 Anxiety disorder, unspecified; Z87.19 Personal history of other diseases of the digestive system; Z90.89 Acquired absence of other organs; Z87.59 Personal history of other complications of pregnancy, childbirth and the puerperium; Z90.710 Acquired absence of both cervix and uterus; Z98.51 Tubal ligation status; Z98.84 Bariatric surgery status
CPT/HCPCS: 36415; 80053; 81000; 83690; 84703; 85025; 87077; 87088; 87186; 96374

== ENCOUNTER 2018-02-19 17:37 | Emergency (ER) | payer OTHER ==
[~2018-02-19] VITALS: Ht 157.5 cm; Wt 72.6 kg
[~2018-02-19 17:37] MED LIST changes: +CIPR-225 PO; +FAMO-119 PO; +HYDR-4226 PO; +METF-397 PO; -METF500T5 PO; +OMEP20TA7 PO; -OXYC-197 PO; +OXYC1TAB87 PO
--- OUTSIDE RECORDS SUMMARY | 2018-02-19 18:10 | XMS REPORT ---
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 Active 968599551 Problem Vasomotor symptoms due to menopause N95.1 Active 327821419 Problem Anxiety state, unspecified F41.1 Active 452283018 ALLERGIES No Known Allergies ENCOUNTERS Encounter Location Date Diagnosis [place] [address] [address] Nov, Muscle ache M79.1 [place] [address] [address] 2813 Sep, Dysuria R30.0 [place] [address] 76432- 1032 Aug, Vasomotor symptoms due to menopause N95.1 ; Overweight (BMI 25.0-29.9) E66.3 and Varicosities I86.8 [facility] [address] [place] [id number] [place] [address] 71724- 2871 Jun, [facility] [address] [address] Apr, Cough R05 and Influenza J11.1 [place] [address] 57966- 0612 Apr, Screening breast examination Z12.31 ; Breast tenderness in female N64.4 ; Other obesity due to excess calories E66.09 and Body mass index ( BMI) of 31.0-31.9 in adult Z68.31 [facility] [address] [place] [id number] [place] [address] 98586 -3549 Apr, Gastroenteritis K52.9 [facility] [address] [place] [address] [id number] Mar, Dental examination Z01.20 and Dental caries K02.9 [facility] [address] [address] -1061 Feb, Gum abscess K05.219 [place] [address] 48169- 3031 Feb, [facility] [address] [place] [id number] [place] [address] 40633- 3220 Dec, Varicosities I86.8 [facility] [address] 30187- 5644 Sep, [facility] [address] [place] [id number] [place] [address] 78999- 5234 Sep, [facility] [address] [place] [id number] [place] [address] 89557- 8938 Sep, Anxiety state, unspecified F41.1 [place] [address] [place] [id number] [place] [address] 23801- 1356 Aug, Unspecified mood [affective] disorder F39 and Eating disorder, unspecified F50.9 [facility] [address] [place] [id number] [place] [address] 45973- 2875 Aug, Anxiety state, unspecified F41.1 [facility] [address] [place] [id number] [place] [address] 02980- 1032 Jun, [facility] [address] [place] [id number] [place] [address] 11535- 7139 Jun, Fatigue, unspecified type R53.83 [facility] [address] [place] [id number] [place] [address] 13048- 4715 07 Jun, 2016 Abdominal pain, left lower quadrant R10.32 ; Candidiasis, cutaneous B37.2 ; Fatigue, unspecified type R53.83 ; Morbid (severe) obesity due to excess calories E66.01 ; General medical exam Z00.00 and Diverticulitis of large intestine without perforation or abscess without bleeding K57.32 [facility] [address] [place] [id number] [place] [address] 41486 -2056 May, Left wrist pain M25.532 and Left wrist sprain, initial encounter S63.502A [address] [address]- 0539 02 May, 2016 General medical exam Z00.00 [place] [address] 94103- 6724 12 Mar, 2016 Encounter for routine adult health examination with abnormal findings Z00.01 ; Body mass index (BMI) of 40.0-44.9 in adult Z68.41 ; Morbid (severe) obesity due to excess calories E66.01 ; History of IBS Z87.19 and Family history of colon cancer requiring screening colonoscopy Z80.0 [place] [address] [place] [id number] [place] [address] 55062- 9389 Oct, [place] [address] [place] [id number] [place] [address] 65352- 1820 Oct, Other acute postprocedural pain G89.18 ; Pain in left knee M25.562 ; Family history of colon cancer requiring screening colonoscopy Z80.0 and Hyperpigmentation L81.9 [place] [address] [place] [id number] [place] [address] 47070- 7331 May, [place] [address] 57655- 2240 May, Left knee injury S89.92XA [place] [address] 01662- 1293 Apr, [place] [id number] [place] [address] 75909- 4785 Apr, Left knee injury S89.92XA and Varicosities I86.8 [place] [address] [place] [id number] [place] [address] 50743- 9820 Mar, [facility] [address] [place] [id number] [place] [address] 12681 -5920 Mar, Acute pain of left knee M25.562 and Strain of left knee, initial encounter S86.912A [place] [address] [place] [id number] [place] [address] 53152- 1308 Mar, Lower abdominal tenderness R10.819 and Breast tenderness N64.4 [place] [address] [place] [id number] [place] [address] 82506- 4130 Feb, [place] [address] 33851- 8934 Feb, Well woman exam Z01.419 ; Vaginal [...] and Complex cyst of left ovary N83.29 [place] [id number] [place] [address] 74810- 9868 Feb, Abdominal pain R10.9 and Pelvic pain R10.2 [place] [address] [place] [id number] [place] [address] 19478- 9087 Feb, [place] [address] [place] [id number] [place] [address] 96780- 6167 Feb, [place] [address] [place] [address]- 4874 Feb, General medical exam Z00.00 ; Right upper quadrant pain R10.11 and History of borderline diabetes mellitus Z87.898 [facility] [id number] [place] [address] 23941- 1950 Feb, Right upper quadrant pain R10.11 [facility] [address] [place] [id number] [place] [address] 01653- 4658 28 Jun, 2014 Lumbago 724.2 [facility] [address] [place] [id number] [place] [address] 50287- 3784 14 Jun, 2014 [facility] [address] [place] [id number] [place] [address] 84664- 5164 Jun, [facility] [address] [place] [id number] [place] [address] 84179- 7402 May, [facility] [address] [place] [id number] [place] [address] 71705- 3028 May, [facility] [address] [address]- 6232 Apr, [facility] [id number] [place] [address] 95169- 2518 Apr, [facility] [address], [place] [address]- 0970 Mar, [facility] [address], [place] [address]- 3111 Mar, [facility] [address], [place] [address]- 7634 Mar, [facility] [address] [place] [id number] [place] [address] 13644- 5976 Mar, [facility] [address], [place] [address]- 4056 Mar, [facility] [id number] [place] [address] 05486- 2546 Mar, [facility] [place] [facility] [address] [id number] [place] [address]- 5073 Mar, [facility] [place] [facility] [address] [id number] [place] [address]- 8433 Feb, [facility] [place] [facility] [address] [id number] [place] [address]- 7658 Feb, [facility] [place] [facility] [address] [id number] [place] [address]- 9913 Feb, [facility] [place] [facility] [address] [id number] [place] [address]- 2665 Feb, [facility] [place] [facility] [address] [id number] [place] [address]- 8431 Feb, [facility] [place] [facility] [address] [id number] [place] [address]- 5227 Jan, [facility] [place] [facility] [address] [id number] [place] [address]- 8941 Jan, [facility] [place] [facility] [address] [id number] [place] [address]- 8034 Oct, [facility] [place] [facility] [address] [id number] [place] [address]- 9252 Oct, [facility] [place] [facility] [address] [id number] [place] [address]- 8271 Sep, [facility] [place] [facility] [address] [id number] [place] [address]- 5331 Sep, [facility] [place] [facility] [address] [id number] [place] [address]- 4049 Aug, [facility] [place] [facility] [address] [id number] [place] [address]- 2473 Aug, [facility] [place] [facility] [address] [id number] [place] [address]- 4349 Aug, [facility] [place] [facility] [address] [id number] [place] [address]- 6916 Apr, [facility] [place] [facility] [address] [id number] [place] [address]- 5426 Apr, [facility] [place] [facility] [address] [id number] [place] [address]- 1566 Apr, [facility] [place] [facility] [address] [id number] [place] [address]- 7226 Apr, [facility] [place] [facility] [address] [id number] [place] [address]- 2549 Apr, [facility] [place] [facility] [address] [id number] [place] [address]- 0594 Mar, [facility] [place] [facility] [address] [id number] [place] [address]- 5376 Mar, [facility] [place] [facility] [address] [id number] [place] [address]- 9327 Mar, [facility] [place] [facility] [address] [id number] [place] [address]- 7652 Mar, [facility] [place] [facility] [address] [id number] [place] [address]- 9537 Mar, [facility] [place] [facility] [address] [id number] [place] [address]- 9079 Mar, [facility] [place] [facility] [address] [id number] [place] [address]- 3628 Mar, [facility] [place] [facility] [address] [id number] [place] [address]- 6124 Mar, [facility] [place] [facility] [address] [id number] [place] [address]- 3178 Mar, [facility] [place] [facility] [address] [id number] [place] [address]- 8416 Oct, [facility] [place] [facility] [address] [id number] [place] [address]- 2070 July, [facility] [address] [facility] [id number] [address]- 2546 July, [facility] [address], [place] [address]- 2546 Jun, [facility] [address] [place] [id number] [address]- 2546 May, [facility] [address] [place] [id number] [address]- 2546 Feb, [facility] [address], [place] [address]- 2546 Feb, [facility] [address], [place] [address] 2546 July, [facility] [address], [place] [address]- 2546 Apr, [facility] [address] [place] [id number] [address]- 2546 Jan, IMMUNIZATIONS No Known Immunizations SOCIAL HISTORY Never Assessed REASON FOR VISIT Left Shoulder, neck and shoulder blade Pain x 1 month -- denise kahn PLAN OF CARE Activity Details Follow Up 6 Months, prn Reason:TY/ varun/Ginny VITAL SIGNS Height 62 in 2017-12-19 Weight 161.0 lbs 2017-12-19 Temperature 97.2 degrees Fahrenheit 2017-12-19 Heart Rate 70 bpm 2017-12-19 Respiratory Rate 18 2017-12-19 BMI 29.44 kg/m2 2017-12-19 Blood pressure systolic 120 mmHg 2017-12-19 Blood pressure diastolic 78 mmHg 2017-12-19 MEDICATIONS Medication Instructions Dosage Frequency Start Date End Date Duration Status Estradiol 1 MG Orally Daily for Three Weeks, 1 Week off 1 tablet Aug, 30 day(s) Active PredniSONE 10 mg Orally Once a day 4 tabs x 4 days, 3 tabs x 4 days, 2 tabs x 4 days, then 1 tab x 4 days 24h Nov, Dec, 16 days Active Tylenol 325 MG Orally every 4 hrs 1 tablet as needed 4h Active Baclofen 20 mg Orally every 8 hrs 1 tablet with food or milk 8h 25 Nov, 2017 9 Dec, 2017 14 days Active RESULTS No Results PROCEDURES No Known procedures INSTRUCTIONS MEDICATIONS ADMINISTERED No Known Medications MEDICAL (GENERAL) HISTORY Type Description Date Medical History ovarian cysts Medical History left knee surgery Medical History History of IBS Medical History varicose vein ligation- left leg Surgical History appendectomy Surgical History hysterectomy- complete Surgical History right knee arthroscopy Surgical History section x 4 Surgical History left knee arthroscopy Surgical History gastric sleeve--Dr. Villalba 11/17/16 Surgical History gall bladder and left ovary removed 08/2016 Surgical History left leg vein stripping 10/2017 Hospitalization History Surgery and childbirth only
--- OUTSIDE RECORDS SUMMARY | 2018-02-19 18:10 | XMS REPORT ---
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 Active 025875046 Problem Vasomotor symptoms due to menopause N95.1 Active 082491419 Problem Anxiety state, unspecified F41.1 Active 010709386 ALLERGIES No Information ENCOUNTERS Encounter Location Date Diagnosis [place] [address] [address]- [address] Sep, Dysuria R30.0 [place] [address] 82639- 3661 Aug, 2018 Vasomotor symptoms due to menopause N95.1 ; Overweight (BMI 25.0-29.9) E66.3 and Varicosities I86.8 [place] [address] [place] [id number] [place] [address] 30201- 0583 Jun, [facility] [address] [address] -6624 Apr, Cough R05 and Influenza J11.1 [place] [address] 08362- 2806 06 Apr, 2017 Screening breast examination Z12.31 ; Breast tenderness in female N64.4 ; Other obesity due to excess calories E66.09 and Body mass index ( BMI) of 31.0-31.9 in adult Z68.31 [facility] [address] [place] [address] Apr, Gastroenteritis K52.9 [facility] [place] [facility] [address] [place] [id number] [place] [address] [id number] Mar, Dental examination Z01.20 and Dental caries K02.9 [facility] [address] [place] [id number] [place] [address] 88877 -4118 Feb, Gum abscess K05.219 [facility] [address] 86974- 4921 Feb, [facility] [address] 06981- 0167 Dec, Varicosities I86.8 [facility] [address] [place] [id number] [place] [address] 92355- 6050 Sep, [place] [address] 91236- 9332 Sep, [facility] [address] [place] [id number] [place] [address] 41786- 6333 Sep, Anxiety state, unspecified F41.1 [facility] [address] [place] [id number] [place] [address] 10545- 7543 Aug, Unspecified mood [affective] disorder F39 and Eating disorder, unspecified F50.9 [place] [address] [place] [id number] [place] [address] 42812- 8014 Aug, Anxiety state, unspecified F41.1 [facility] [address] [place] [id number] [place] [address] 50677- 6515 Jun, [facility] [address] 34274- 3750 Jun, Fatigue, unspecified type R53.83 [facility] [address] [place] [id number] [place] [address] 35957- 9703 Jun, Abdominal pain, left lower quadrant R10.32 ; Candidiasis, cutaneous B37.2 ; Fatigue, unspecified type R53.83 ; Morbid (severe) obesity due to excess calories E66.01 ; General medical exam Z00.00 and Diverticulitis of large intestine without perforation or abscess without bleeding K57.32 [facility] [address] [place] [id number] [place] [address] 45528 -5146 02 May, 2016 Left wrist pain M25.532 and Left wrist sprain, initial encounter S63.502A [facility] [address] [place] [id number] [place] [address] 09140- 5788 May, General medical exam Z00.00 [facility] [address] [place] [id number] [place] [address] 36753- 5744 12 Mar, 2016 Encounter for routine adult health examination with abnormal findings Z00.01 ; Body mass index (BMI) of 40.0-44.9 in adult Z68.41 ; Morbid (severe) obesity due to excess calories E66.01 ; History of IBS Z87.19 and Family history of colon cancer requiring screening colonoscopy Z80.0 [place] [address] [place] [id number] [place] [address] 58123- 5228 Oct, [place] [address] 42308- 7867 Oct, Other acute postprocedural pain G89.18 ; Pain in left knee M25.562 ; Family history of colon cancer requiring screening colonoscopy Z80.0 and Hyperpigmentation L81.9 [place] [address] [place] [id number] [place] [address] 73269- 9369 May, [place] [address] 55620- 9644 May, Left knee injury S89.92XA [place] [address] [place] [id number] [place] [address] 58467- 2384 Apr, [place] [address] 25527- 7293 Apr, Left knee injury S89.92XA and Varicosities I86.8 [facility] [address] [place] [address] 14650- 8378 Mar, [facility] [address] [place] [id number] [place] [address] 17408 -8363 Mar, Acute pain of left knee M25.562 and Strain of left knee, initial encounter S86.912A [place] [address] [place] [id number] [place] [address] 30473- 2898 Mar, Lower abdominal tenderness R10.819 and Breast tenderness N64.4 [place] [address] [place] [id number] [place] [address] 43351- 1578 Feb, [place] [address] [place] [id number] [place] [address] 38405- 9461 Feb, Well woman exam Z01.419 ; Vaginal [...] and Complex cyst of left ovary N83.29 [facility] [address] [place] [address] 44935- 5073 Feb, Abdominal pain R10.9 and Pelvic pain R10.2 [facility] [address] [place] [address] 49825- 4290 Feb, [place] [address] [place] [id number] [place] [address] 87264- 3600 Feb, [place] [address] [place] [address] 93612- 8849 Feb, General medical exam Z00.00 ; Right upper quadrant pain R10.11 and History of borderline diabetes mellitus Z87.898 [facility] [address] [facility] [address] [id number] [address]- 4425 09 Feb, 2015 Right upper quadrant pain R10.11 [facility] [address] [facility] [address] [id number], [place] [address]- 4092 28 Jun, 2014 Lumbago 724.2 [facility] [address] [facility] [address] [id number] [address]- 9631 14 Jun, 2014 [facility] [address] [facility] [address] [id number], [place] [address]- 5093 Jun, [facility] [address] [facility] [address] [id number], [place] [address]- 9614 May, [facility] [address] [facility] [address] [id number], [place] [address]- 8541 May, [facility] [address], [place] [address]- 2374 Apr, [facility] [address] [id number], [place] [address]- 4967 Apr, [facility] [address], [place] [address]- 5779 Mar, [facility] [address] [id number], [place] [address]- 3203 Mar, [facility] [address], [place] [address]- 3911 Mar, [facility] [address] [facility] [address] [id number], [place] [address]- 7106 Mar, [facility] [address] [facility] [address] [id number], [place] [address]- 6253 Mar, [facility] [address] [facility] [address] [id number], [place] [address]- 0683 Mar, [facility] [address] [id number], [place] [address]- 1026 Mar, [facility] [place] [facility] [address] [id number] [place] [address]- 7384 Feb, [facility] [place] [facility] [address] [id number] [place] 0539 Feb, [facility] [place] [facility] [address] [id number] [place] [address]- 5007 Feb, [facility] [place] [facility] [address] [id number] [place] [address]- 6559 Feb, [facility] [place] [facility] [address] [id number] [place] [address]- 9387 Feb, [facility] [place] [facility] [address] [id number] [place] [address]- 8933 Jan, [facility] [place] [facility] [address] [id number] [place] [address]- 8293 Jan, [facility] [place] [facility] [address] [id number] [place] [address]- 7636 Oct, [facility] [place] [facility] [address] [id number] [place] [address]- 8143 Oct, [facility] [place] [facility] [address] [id number] [place] [address]- 4349 Sep, [facility] [place] [facility] [address] [id number] [place] [address]- 7029 Sep, [facility] [place] [facility] [address] [id number] [place] [address]- 6471 Aug, [facility] [place] [facility] [address] [id number] [place] [address]- 4935 Aug, [facility] [place] [facility] [address] [id number] [place] [address] Aug, [facility] [place] [facility] [address] [id number] [place] [address] Apr, [facility] [place] [facility] [address] [id number] [place] [address] Apr, [facility] [address] [id number] [place] [address] Apr, [facility] [place] [facility] [address] [id number] [place] [address] Apr, [facility] [place] [facility] [address] [id number] [place] [address] Apr, [facility] [place] [facility] [address] [id number] [place] [address] Mar, [facility] [place] [facility] [address] [id number] [place] [address] Mar, [facility] [place] [facility] [address] [id number] [place] [address] Mar, [facility] [place] [facility] [address] [id number] [place] [address] Mar, [facility] [place] [facility] [address] [id number] [place] [address] Mar, [facility] [place] [facility] [address] [id number] [place] [address] Mar, [facility] [place] [facility] [address] [facility] [id number] [place] [address] Mar, [facility] [place] [facility] [address] [id number] [place] [address] Mar, [facility] [place] [facility] [address] [id number] [place] [address] Mar, [facility] [place] [facility] [address] [id number] [place] [address] Oct, [facility] [place] [facility] [address] [id number] [place] [address] July, [facility] [place] [facility] [address] [id number] [place] [address] July, [facility] [place] [facility] [address] [id number] [address] Jun, [facility] [id number] [address] May, [facility] [id number] [address] Feb, [facility] [id number] [address] Feb, [facility] [id number] [address] July, [facility] [id number] [address] Apr, [facility] [address] [id number], [place] [address] Jan, IMMUNIZATIONS No Known Immunizations SOCIAL HISTORY Never Assessed REASON FOR VISIT PLAN OF CARE VITAL SIGNS MEDICATIONS Medication Instructions Dosage Frequency Start Date End Date Duration Status Macrobid 100 mg Orally every 12 hrs 1 capsule with food 12h Sep, 7 days Active RESULTS No Results PROCEDURES No [...]
--- OUTSIDE RECORDS SUMMARY | 2018-02-19 18:11 | XMS REPORT ---
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 Active 976756903 Problem Vasomotor symptoms due to menopause N95.1 Active 091313164 Problem Anxiety state, unspecified F41.1 Active 315423778 ALLERGIES No Known Allergies ENCOUNTERS Encounter Location Date Diagnosis [place] [address] [address] Sep, Dysuria R30.0 [place] [address] [address] Aug, 2018 Vasomotor symptoms due to menopause N95.1 ; Overweight (BMI 25.0-29.9) E66.3 and Varicosities I86.8 [place] [address] [place] [id number] [place] [address]- [address]58 Jun, [facility] WALK IN [facility] [address] [address] Apr, Cough R05 and Influenza J11.1 [place] [address] [address]- [address] 06 Apr, 2017 Screening breast examination Z12.31 ; Breast tenderness in female N64.4 ; Other obesity due to excess calories E66.09 and Body mass index ( BMI) of 31.0-31.9 in adult Z68.31 [facility] [address] [place] [address] [id number] [place] [address] Apr, Gastroenteritis K52.9 [facility] [address] [id number] Mar, Dental examination Z01.20 and Dental caries K02.9 [facility] [address] [place] [id number] [place] [address]9 Feb, Gum abscess K05.219 [facility] [address] [address]- 3[address] Feb, [facility] [address] 0[address]- 7719 Dec, Varicosities I86.8 [facility] [address] [place] [id number] [place] [address] 35716- 6438 Sep, [place] [address] [address] 3[address] Sep, [facility] [address] [id number] [place] [address] 13076- 2803 Sep, Anxiety state, unspecified F41.1 [place] [address] [place] [id number] [place] [address] 44537- 1220 Aug, Unspecified mood [affective] disorder F39 and Eating disorder, unspecified F50.9 [place] [address] [place] [id number] [place] [address] 54247- 4617 Aug, Anxiety state, unspecified F41.1 [facility] [address] [id number] [place] [address] 26957- 3873 Jun, [place] [address] 38726- 1636 Jun, Fatigue, unspecified type R53.83 [facility] [address] [place] [id number] [place] [address] 13544- 5463 Jun, Abdominal pain, left lower quadrant R10.32 ; Candidiasis, cutaneous B37.2 ; Fatigue, unspecified type R53.83 ; Morbid (severe) obesity due to excess calories E66.01 ; General medical exam Z00.00 and Diverticulitis of large intestine without perforation or abscess without bleeding K57.32 [facility] [address] [id number] [place] [address] 51083 -9808 02 May, 2016 Left wrist pain M25.532 and Left wrist sprain, initial encounter S63.502A [facility] [address] 37596- 9955 May, General medical exam Z00.00 [facility] [address] [place] [id number] [place] [address] 57786- 4908 12 Mar, 2016 Encounter for routine adult health examination with abnormal findings Z00.01 ; Body mass index (BMI) of 40.0-44.9 in adult Z68.41 ; Morbid (severe) obesity due to excess calories E66.01 ; History of IBS Z87.19 and Family history of colon cancer requiring screening colonoscopy Z80.0 [place] [address] [id number] [place] [address] 31453- 3031 Oct, [place] [address] 85660- 4663 Oct, Other acute postprocedural pain G89.18 ; Pain in left knee M25.562 ; Family history of colon cancer requiring screening colonoscopy Z80.0 and Hyperpigmentation L81.9 [place] [address] [place] [id number] [place] [address] 22421- 8426 May, [place] [address] 05427- 7848 May, Left knee injury S89.92XA [place] [address] [place] [id number] [place] [address] 12606- 1158 Apr, [place] [address] 75030- 4784 Apr, Left knee injury S89.92XA and Varicosities I86.8 [facility] [address] [place] [address] 82385- 3945 Mar, [facility] [address] [id number] [place] [address] 47546 -4806 Mar, Acute pain of left knee M25.562 and Strain of left knee, initial encounter S86.912A [place] [address] [place] [id number] [place] [address] 54338- 5332 Mar, Lower abdominal tenderness R10.819 and Breast tenderness N64.4 [place] [address] [place] [id number] [place] [address] 09690- 4678 Feb, [place] [address] [place] [id number] [place] [address] 41865- 7221 Feb, Well woman exam Z01.419 ; Vaginal [...] and Complex cyst of left ovary N83.29 [facility] [address] [place] [id number] [place] [address] 21589- 3672 16 Feb, 2015 Abdominal pain R10.9 and Pelvic pain R10.2 [facility] [address] [place] [id number] [place] [address] 14295- 3001 Feb, [place] [address] [place] [id number] [place] [address] 17719- 0309 Feb, [place] [address] [place] [id number] [place] [address] 92057- 0573 Feb, General medical exam Z00.00 ; Right upper quadrant pain R10.11 and History of borderline diabetes mellitus Z87.898 [facility] [address] [id number] [address] Feb, Right upper quadrant pain R10.11 [facility] [address] [address] 28 Jun, 2014 Lumbago 724.2 [facility] [address] [facility] [id number], [place] [address]- 6[address] 14 Jun, 2014 [facility] [address] [facility] [id number], [place] [address]- 3815 Jun, [facility] [address] [place] [address], [place] [address]- 2495 May, [facility] [address] [place] [id number] [place] [address]- 5901 May, [facility] [address], [place] [address]- 6790 Apr, [facility] [address] [address]- 9355 Apr, [facility] [address] [place] [address]- 5207 Mar, [facility] [address], [place] [address]- 6683 Mar, [facility] [address], [place] [address]- 7569 Mar, [facility] [address] [id number] [address]- 6225 Mar, [facility] [address] [address]- 2780 Mar, [facility] [address] [facility] [id number], [place] [address]- 9613 Mar, [facility] [address] [place] [id number] [address] Mar, [facility] [place] [facility] [address] [id number] [place] [address]- 2476 Feb, [facility] [place] [facility] [address] [id number] [place] [address]- 6917 Feb, [facility] [place] [facility] [address] [id number] [place] [address]- 4981 Feb, [facility] [place] [facility] [address] [id number] [place] [address]- 4173 Feb, [facility] [place] [facility] [address] [id number] [place] [address]- 9400 Feb, [facility] [place] [facility] [address] [id number] [place] [address]- 4259 Jan, [facility] [place] [facility] [address] [id number] [place] [address]- 0189 Jan, [facility] [place] [facility] [address] [id number] [place] [address]- 1315 Oct, [facility] [place] [facility] [address] [id number] [place] [address]- 2237 Oct, [facility] [place] [facility] [address] [id number] [place] [address]- 8257 Sep, [facility] [place] [facility] [address] [id number] [place] [address]- 9383 Sep, [facility] [place] [facility] [address] [id number], [place] [address]- 1006 Aug, [facility] [place] [facility] [address] [id number] [place] [address]- 2639 Aug, [facility] [place] [facility] [address] [id number] [place] [address]- 8562 Aug, [facility] [place] [facility] [address] [id number] [place] [address]- 9076 Apr, [facility] [place] [facility] [address] [id number] [place] [address]- 5249 Apr, [facility] [place] [facility] [address] [id number] [place] [address]- 1566 Apr, [facility] [place] [facility] [address] [id number] [place] [address]- 9816 Apr, [facility] [place] [facility] [address] [id number] [place] [address]- 7236 Apr, [facility] [place] [facility] [address] [id number] [place] [address]- 2409 Mar, [facility] [place] [facility] [address] [id number] [place] [address]- 7032 Mar, [facility] [place] [facility] [address] [id number] [place] [address]- 8192 Mar, [facility] [place] [facility] [address] [id number] [place] [address]- 0846 Mar, [facility] [place] [facility] [address] [id number] [place] [address]- 4345 Mar, [facility] [place] [facility] [address] [id number] [place] [address]- 2557 Mar, [facility] [place] [facility] [address] [id number] [place] [address]- 1666 Mar, [facility] [place] [facility] [address] [id number] [place] [address]- 1770 Mar, [facility] [place] [facility] [address] [id number] [place] [address]- 9881 Mar, [facility] [place] [facility] [address] [id number] [place] [address]- 0733 Oct, [facility] [place] [facility] [address] [id number] [place] [address]- 7708 July, [facility] [place] [facility] [address] [id number] [place] [address]- 2931 July, [facility] [address] [id number] [address]- 2546 Jun, [facility] [address] [id number], [place] [address]- 2546 May, [facility] [address] [address]- 2546 Feb, [facility] [address], [place] [address]- 2546 Feb, [facility] [address] [address]- 2546 July, [facility] [address] [address]- 2546 Apr, [facility] [address] [id number] [address]- 2546 Jan, IMMUNIZATIONS No Known Immunizations SOCIAL HISTORY Never Assessed REASON FOR VISIT women's health issue PLAN OF CARE Activity Details Follow Up 6 Months, prn Reason:CHM VITAL SIGNS Height 62 in 2017-09-22 Weight 152.7 lbs 2017-09-22 Temperature 99.3 degrees Fahrenheit 2017-09-22 Heart Rate 58 bpm 2017-09-22 Respiratory Rate 20 2017-09-22 BMI 27.93 kg/m2 2017-09-22 Blood pressure systolic 112 mmHg 2017-09-22 Blood pressure diastolic 74 mmHg 2017-09-22 MEDICATIONS Medication Instructions Dosage Frequency Start Date End Date Duration Status Estradiol 1 MG Orally Daily for Three Weeks, 1 Week off 1 tablet Aug, 30 day(s) Active Tylenol 325 MG Orally every 4 hrs 1 tablet as needed 4h Not-Taking RESULTS No Results PROCEDURES No Known procedures [...]
--- OUTSIDE RECORDS SUMMARY | 2018-02-19 18:11 | XMS REPORT ---
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 Active 829269133 Problem Vasomotor symptoms due to menopause N95.1 Active 744230105 Problem Anxiety state, unspecified F41.1 Active 043816383 ALLERGIES No Information ENCOUNTERS Encounter Location Date Diagnosis [place] [address] [address] Sep, Dysuria R30.0 [place] [address] [address]- 1514 Aug, 2018 Vasomotor symptoms due to menopause N95.1 ; Overweight (BMI 25.0-29.9) E66.3 and Varicosities I86.8 [place] [address] [place] [id number] [place] [address] 64190- 6528 Jun, [facility] [address] [address] Apr, Cough R05 and Influenza J11.1 [place] [address] 66179- 3154 06 Apr, 2017 Screening breast examination Z12.31 ; Breast tenderness in female N64.4 ; Other obesity due to excess calories E66.09 and Body mass index ( BMI) of 31.0-31.9 in adult Z68.31 [facility] [address] [place] [address] Apr, Gastroenteritis K52.9 [facility] [address] [id number] [place] [address] [id number] Mar, Dental examination Z01.20 and Dental caries K02.9 [facility] [address] [place] [id number] [place] [address] 13110 -1261 Feb, Gum abscess K05.219 [facility] [address] 22839- 3788 Feb, [facility] [address] 61036- 5182 Dec, Varicosities I86.8 [facility] [address] [place] [id number] [place] [address] 26671- 4193 Sep, [place] [address] 70634- 9802 Sep, [facility] [address] [place] [id number] [place] [address] 79163- 2790 Sep, Anxiety state, unspecified F41.1 [facility] [address] [place] [id number] [place] [address] 44999- 8299 Aug, Unspecified mood [affective] disorder F39 and Eating disorder, unspecified F50.9 [place] [address] [place] [id number] [place] [address] 04022- 4289 Aug, Anxiety state, unspecified F41.1 [facility] [address] [place] [id number] [place] [address] 61958- 9078 Jun, [facility] [address] 03518- 1915 Jun, Fatigue, unspecified type R53.83 [facility] [address] [place] [id number] [place] [address] 01636- 2745 Jun, Abdominal pain, left lower quadrant R10.32 ; Candidiasis, cutaneous B37.2 ; Fatigue, unspecified type R53.83 ; Morbid (severe) obesity due to excess calories E66.01 ; General medical exam Z00.00 and Diverticulitis of large intestine without perforation or abscess without bleeding K57.32 [facility] [address] [place] [id number] [place] [address] 11982 -6929 02 May, 2016 Left wrist pain M25.532 and Left wrist sprain, initial encounter S63.502A [facility] [address] [place] [id number] [place] [address] 85750- 2842 May, General medical exam Z00.00 [facility] [address] [place] [id number] [place] [address] 93737- 6860 12 Mar, 2016 Encounter for routine adult health examination with abnormal findings Z00.01 ; Body mass index (BMI) of 40.0-44.9 in adult Z68.41 ; Morbid (severe) obesity due to excess calories E66.01 ; History of IBS Z87.19 and Family history of colon cancer requiring screening colonoscopy Z80.0 [place] [address] [place] [id number] [place] [address] 46604- 4172 Oct, [place] [address] 26727- 9567 Oct, Other acute postprocedural pain G89.18 ; Pain in left knee M25.562 ; Family history of colon cancer requiring screening colonoscopy Z80.0 and Hyperpigmentation L81.9 [place] [address] [place] [id number] [place] [address] 44482- 0938 May, [place] [address] 70859- 9774 May, Left knee injury S89.92XA [place] [address] [place] [id number] [place] [address] 06474- 9394 Apr, [place] [address] 02983- 9527 Apr, Left knee injury S89.92XA and Varicosities I86.8 [facility] [address] [place] [address] 71540- 1781 Mar, [facility] [address] [place] [id number] [place] [address] 76713 -3146 Mar, Acute pain of left knee M25.562 and Strain of left knee, initial encounter S86.912A [place] [address] [place] [id number] [place] [address] 85694- 3084 Mar, Lower abdominal tenderness R10.819 and Breast tenderness N64.4 [place] [address] [place] [id number] [place] [address] 16776- 3771 Feb, [place] [address] [place] [id number] [place] [address] 28500- 8108 Feb, Well woman exam Z01.419 ; Vaginal [...] and Complex cyst of left ovary N83.29 [facility] [address] [place] [address] 89464- 8100 Feb, Abdominal pain R10.9 and Pelvic pain R10.2 [facility] [address] [place] [address] 30908- 7209 Feb, [place] [address] [place] [id number] [place] [address] 40430- 1155 Feb, [place] [address] [place] [address] 39204- 6277 Feb, General medical exam Z00.00 ; Right upper quadrant pain R10.11 and History of borderline diabetes mellitus Z87.898 [facility] [address] [facility] [id number] [address]- 5413 09 Feb, 2015 Right upper quadrant pain R10.11 [facility] [address] [facility] [id number], [place] [address]- 9692 28 Jun, 2014 Lumbago 724.2 [facility] [address] [facility] [id number], [place] [address]- 8195 14 Jun, 2014 [facility] [address] [facility] [id number], [place] [address]- 2296 Jun, [facility] [address] [facility] [id number], [place] [address]- 2150 May, [facility] [address] [facility] [id number], [place] [address]- 9993 May, [facility] [address], [place] [address]- 7788 Apr, [facility] [address] [id number], [place] [address]- 5051 Apr, [facility] [address], [place] [address]- 0807 Mar, [facility] [address] [id number], [place] [address]- 1370 Mar, [facility] [address], [place] [address]- 1851 Mar, [facility] [address] [facility] [id number], [place] [address]- 1268 Mar, [facility] [address] [facility] [id number], [place] [address]- 6417 Mar, [facility] [address] [facility] [id number], [place] [address]- 5044 Mar, [facility] [address] [id number], [place] [address]- 9412 Mar, [facility] [place] [facility] [address] [id number] [place] [address]- 5880 Feb, [facility] [place] [facility] [address] [id number] [place] [address] Feb, [facility] [place] [facility] [address] [id number] [place] [address]- 5776 Feb, [facility] [place] [facility] [address] [id number] [place] [address]- 5738 Feb, [facility] [place] [facility] [address] [id number] [place] [address]- 0179 Feb, [facility] [place] [facility] [address] [id number] [place] [address]- 0232 Jan, [facility] [place] [facility] [address] [id number] [place] [address]- 8877 Jan, [facility] [place] [facility] [address] [id number] [place] [address]- 3123 Oct, [facility] [place] [facility] [address] [id number] [place] [address]- 9084 Oct, [facility] [place] [facility] [address] [id number] [place] [address]- 7549 Sep, [facility] [place] [facility] [address] [id number] [place] [address]- 1820 Sep, [facility] [place] [facility] [address] [id number] [place] [address]- 3577 Aug, [facility] [place] [facility] [address] [id number] [place] [address]- 6146 Aug, [facility] [place] [facility] [address] [id number] [place] [address] Aug, [facility] [place] [facility] [address] [id number] [place] [address] Apr, [facility] [place] [facility] [address] [id number] [place] [address] Apr, [facility] [address] [id number] [place] [address] Apr, [facility] [place] [facility] [address] [id number] [place] [address] Apr, [facility] [place] [facility] [address] [id number] [place] [address] Apr, [facility] [place] [facility] [address] [id number] [place] [address] Mar, [facility] [place] [facility] [address] [id number] [place] [address] Mar, [facility] [place] [facility] [address] [id number] [place] [address] Mar, [facility] [place] [facility] [address] [id number] [place] [address] Mar, [facility] [place] [facility] [address] [id number] [place] [address] Mar, [facility] [place] [facility] [address] [id number] [place] [address] Mar, [facility] [place] [facility] [address] [facility] [id number] [place] [address] Mar, [facility] [place] [facility] [address] [id number] [place] [address] Mar, [facility] [place] [facility] [address] [id number] [place] [address] Mar, [facility] [place] [facility] [address] [id number] [place] [address] Oct, [facility] [place] [facility] [address] [id number] [place] [address] July, [facility] [place] [facility] [address] [id number] [place] [address] July, [facility] [place] [facility] [id number] [address] Jun, [facility] [id number] [address] May, [facility] [id number] [place] [address] Feb, [facility] [id number] [place] [id number] Feb, [facility] [id number] [place] [address] July, [facility] [id number] [place] [address] Apr, [facility] [id number] [address] Jan, IMMUNIZATIONS No Known Immunizations SOCIAL HISTORY Never Assessed REASON FOR VISIT Referral PLAN OF CARE VITAL SIGNS MEDICATIONS Unknown [...]
--- OUTSIDE RECORDS SUMMARY | 2018-02-19 18:12 | XMS REPORT ---
Author Author SHAILESH ACLABRESE [facility] Address [address] [place] [address] Care Team Providers Care Import/Export Agent Name Role Phone SHAILESH CALABRESE Unavailable PROBLEMS Type Condition ICD9-CM Code HGI47-UP Code Onset Dates Condition Status SNOMED Code Problem Overweight (BMI 25.0-29.9) E66.3 Active 740022360 Problem Post menopausal syndrome N95.1 Active 502834140 Problem Varicosities I86.8 Active 649892159 Problem Vasomotor symptoms due to menopause N95.1 Active 135436661 Problem Anxiety state, unspecified F41.1 Active 340926360 ALLERGIES No Known Allergies ENCOUNTERS Encounter Location Date Diagnosis [place] [id number] [address] Aug, Vasomotor symptoms due to menopause N95.1 ; Overweight (BMI 25.0-29.9) E66.3 and Varicosities I86.8 [facility] [place] [address] [address] Jun, [facility] [address] [address] Apr, Cough R05 and Influenza J11.1 [facility] [place] [address] [address] Apr, Screening breast examination Z12.31 ; Breast tenderness in female N64.4 ; Other obesity due to excess calories E66.09 and Body mass index ( BMI) of 31.0-31.9 in adult Z68.31 [facility] [address] [address] Apr, Gastroenteritis K52.9 [facility] [address] [id number] [id number] Mar, Dental examination Z01.20 and Dental caries K02.9 [facility] [id number] [place] [address] Feb, Gum abscess K05.219 [facility] [place] [address] [place] [id number] [place] [address] Feb, [place] [address] [place] [id number] [place] [address] Dec, Varicosities I86.8 [place] [address] [place] [id number] [place] [address] Sep, [place] [address] [place] [id number] [place] [address] Sep, [place] [address] [place] [id number] [place] [address] Sep, Anxiety state, unspecified F41.1 [place] [address] [place] [id number] [place] [address] Aug, Unspecified mood [affective] disorder F39 and Eating disorder, unspecified F50.9 [place] [id number] [place] [address] Aug, Anxiety state, unspecified F41.1 [place] [address] [place] [id number] [place] [address] Jun, [place] [address] [place] [id number] [place] [address] Jun, Fatigue, unspecified type R53.83 [place] [address] [place] [id number] [place] [address] Jun, Abdominal pain, left lower quadrant R10.32 ; Candidiasis, cutaneous B37.2 ; Fatigue, unspecified type R53.83 ; Morbid (severe) obesity due to excess calories E66.01 ; General medical exam Z00.00 and Diverticulitis of large intestine without perforation or abscess without bleeding K57.32 [facility] [address] [place] [address] [id number] [place] [address] May, Left wrist pain M25.532 and Left wrist sprain, initial encounter S63.502A [place] [address] [address] May, 2016 General medical exam Z00.00 [place] [address] [address] 12 Mar, 2016 Encounter for routine adult health examination with abnormal findings Z00.01 ; Body mass index (BMI) of 40.0-44.9 in adult Z68.41 ; Morbid (severe) obesity due to excess calories E66.01 ; History of IBS Z87.19 and Family history of colon cancer requiring screening colonoscopy Z80.0 [place] [address] [address] Oct, [place] [address] [address] Oct, Other acute postprocedural pain G89.18 ; Pain in left knee M25.562 ; Family history of colon cancer requiring screening colonoscopy Z80.0 and Hyperpigmentation L81.9 [place] [address] [address] May, [place] [address] [address] May, Left knee injury S89.92XA [place] [address] [address] Apr, [place] [address] [address] Apr, Left knee injury S89.92XA and Varicosities I86.8 [place] [address] [address] Mar, [facility] [address] [address] Mar, Acute pain of left knee M25.562 and Strain of left knee, initial encounter S86.912A [facility] [place] [address] [place] [address] Mar, Lower abdominal tenderness R10.819 and Breast tenderness N64.4 [place] [address] [place] [id number] [place] [address] Feb, [place] [address] [place] [id number] [place] [address] Feb, Well woman exam Z01.419 ; Vaginal [...] cyst of left ovary N83.29 [place] [address] [place] [address] Feb, Abdominal pain R10.9 and Pelvic pain R10.2 [place] [address] [place] [id number] [place] [address] Feb, [place] [address] [place] [id number] [place] [address] Feb, [place] [address] [place] [id number] [place] [address] Feb, General medical exam Z00.00 ; Right upper quadrant pain R10.11 and History of borderline diabetes mellitus Z87.898 [place] [address] [place] [id number] [place] [address] Feb, Right upper quadrant pain R10.11 [facility] [address] [facility] [id number] [place] [address] Jun, Lumbago 724.2 [facility] [address] [id number] [place] [address] 14 Jun, 2014 [facility] [address] [facility] [id number] [place] [address] Jun, [facility] [address] [id number] [place] [address] May, [facility] [address] [facility] [id number] [place] [address] May, [facility] [address] [facility] [id number] [place] [address] Apr, [facility] [id number] [place] [address] Apr, [facility] [address] [facility] [id number] [place] [address] Mar, [facility] [address] [place] [id number] [place] [address] Mar, [facility] [address] [place] [id number] [place] [address] Mar, [facility] [address] [place] [address] [id number] [place] [address] Mar, [facility] [place] [facility] [address] [facility] [id number] [place] [address]- [address] Mar, [facility] [place] [facility] [address] [facility] [id number] [place] [address] Mar, [facility] [place] [facility] [address] [facility] [id number] [place] [address] Mar, [facility] [place] [facility] [address] [place] [id number] [place] [address] Feb, [facility] [place] [facility] [address] [id number] [place] [address]- [address] Feb, [facility] [place] [facility] [address] [id number] [place] [address]- 32[address] Feb, [facility] [place] [facility] [address] [id number] [place] [address] Feb, [facility] [place] [facility] [address] [id number] [place] [address]- 12[address] Feb, [facility] [place] [facility] [address] [id number] [place] [address]- [address] Jan, [facility] [place] [facility] [address] [id number] [place] [address]- 14[address] Jan, [facility] [place] [facility] [address] [id number] [place] [address]- [address] Oct, [facility] [place] [facility] [address] [id number] [place] [address]- [address] Oct, [facility] [place] [facility] [address] [id number] [place] [address]- 39[address] Sep, [facility] [place] [facility] [address] [id number] [place] [address]- 88[address] Sep, [facility] [place] [facility] [address] [id number] [place] [address]- 0471 Aug, [facility] [place] [facility] [address] [id number] [place] [address]- 1438 Aug, [facility] [place] [facility] [address] [id number] [place] [address]- 89[address] Aug, [facility] [place] [facility] [address] [id number] [place] [address]- 3[address] Apr, [facility] [place] [facility] [address] [id number] [place] [address]- 6631 Apr, [facility] [place] [facility] [address] [id number] [place] [address]- 96[address] Apr, [facility] [address] [id number] [place] [address]- 7145 Apr, [facility] [place] [facility] [address] [id number] [place] [address]- 475[address] Apr, [facility] [place] [facility] [address] [id number] [place] [address]- 1517 Mar, [facility] [place] [facility] [address] [id number] [place] [address]- 3014 Mar, [facility] [place] [facility] [address] [id number] [place] [address]- 3199 Mar, [facility] [place] [facility] [address] [id number] [place] [address]- 1532 Mar, [facility] [address] [id number] [place] [address]- 1774 Mar, [facility] [place] [facility] [address] [id number] [place] [address]- 1552 Mar, [facility] [address] [id number] [place] [address]- [address] Mar, [facility] [place] [facility] [address] [id number] [place] [address]- [address] Mar, [facility] [address] [id number] [place] [address]- 9[address] Mar, [facility] [place] [facility] [address] [id number] [place] [address]- 9[address] Oct, [facility] [place] [facility] [address] [id number] [place] [address]- [address] July, [facility] [place] [facility] [address] [id number] [place] [address]- [address] July, [facility] [place] [facility] [address] [id number] [place] [address]- 6080 Jun, [facility] [place] [facility] [address] [id number] [place] [address]- [address] May, [facility] [place] [address] [facility] [id number] [address] Feb, [facility] [place] [address] [facility] [id number] [address] Feb, [facility] [place] [address] [facility] [id number] [address] July, [facility] [place] [address] [facility] [id number] [address]- [address] Apr, [facility] [place] [address] [id number] [address] Jan, IMMUNIZATIONS No Known Immunizations SOCIAL HISTORY Never Assessed REASON FOR VISIT Chest burning, shortness of breath, congestion, headache cough x2 days JStrasserRN PLAN OF CARE Activity Details Follow Up prn Reason: VITAL SIGNS Height 62 in 2017-05-17 Weight 171.0 lbs 2017-05-17 Temperature 99.5 degrees Fahrenheit 2017-05-17 Heart Rate 80 bpm 2017-05-17 Respiratory Rate 22 2017-05-17 BMI 31.27 kg/m2 2017-05-17 Blood pressure systolic 100 mmHg 2017-05-17 Blood pressure diastolic 70 mmHg 2017-05-17 MEDICATIONS Medication Instructions Dosage Frequency Start Date End Date Duration Status Benzonatate 100 mg Orally Three times a day 1 capsule as needed 8h Apr, Active Tylenol 325 MG Orally every 4 hrs 1 tablet as needed 4h Active RESULTS Name Result Date Reference Range INFLUENZA A & B (IN HOUSE) 2017-05-17 INFLUENZA A negative INFLUENZA B negative Control + Lot # [id number] Exp date 2019-02-15 PROCEDURES Procedure Date Ordered Result Body Site INFLUENZA ASSAY W/OPTIC May 17, 2017 INSTRUCTIONS MEDICATIONS ADMINISTERED No Known Medications MEDICAL [...]
--- OUTSIDE RECORDS SUMMARY | 2018-02-19 18:12 | XMS REPORT ---
Author Author JUSTUS MALDONADO Organization [facility] Address [address] [place] [address] Care Team Providers Care Core Finisher Name Role Phone JUSTUS MALDONADO Unavailable PROBLEMS Type Condition ICD9-CM Code HUK67-JV Code Onset Dates Condition Status SNOMED Code Problem Other obesity due to excess calories E66.09 Active 241125227 Problem Body mass index (BMI) of 31.0-31.9 in adult Z68.31 Active 030299585 Problem Varicosities I86.8 Active 305321161 Problem Breast tenderness N64.4 Active 14142638 Problem Unspecified mood [affective] disorder F39 Active 71216690 Problem Anxiety state, unspecified F41.1 Active 028160591 ALLERGIES No Known Allergies ENCOUNTERS Encounter Location Date Diagnosis [facility] [address] [address] Jun, [facility] [address] [address] Apr, Cough R05 and Influenza J11.1 [facility] [address] [address] Apr, Screening breast examination Z12.31 ; Breast tenderness in female N64.4 ; Other obesity due to excess calories E66.09 and Body mass index ( BMI) of 31.0-31.9 in adult Z68.31 [facility] [address] [address] Apr, Gastroenteritis K52.9 [facility] [address] [id number] Mar, Dental examination Z01.20 and Dental caries K02.9 [facility] [address] [address] Feb, Gum abscess K05.219 [place] [address] [id number] [place] [address] 00147- 3728 Feb, [place] [address] [id number] [place] [address]41- 8793 Dec, Varicosities I86.8 [place] [address] [address] Sep, [place] [id number] [place] [address] 07345- 8054 Sep, [place] [address] [address] Sep, Anxiety state, unspecified F41.1 [place] [address] [address]- [address] Aug, Unspecified mood [affective] disorder F39 and Eating disorder, unspecified F50.9 [place] [id number] [place] [address] 62229- 4870 Aug, Anxiety state, unspecified F41.1 [place] [id number] [place] [address] 12862- 0239 Jun, [place] [id number] [place] [address] 92678- 6086 Jun, Fatigue, unspecified type R53.83 [place] [id number] [place] [address] 64132- 3180 Jun, Abdominal pain, left lower quadrant R10.32 ; Candidiasis, cutaneous B37.2 ; Fatigue, unspecified type R53.83 ; Morbid (severe) obesity due to excess calories E66.01 ; General medical exam Z00.00 and Diverticulitis of large intestine without perforation or abscess without bleeding K57.32 [facility] [address] [place] [address] May, Left wrist pain M25.532 and Left wrist sprain, initial encounter S63.502A [facility] [id number] [place] [address] 71142- 3040 02 May, 2016 General medical exam Z00.00 [place] [address] [address]- 53[address] 12 Mar, 2016 Encounter for routine adult health examination with abnormal findings Z00.01 ; Body mass index (BMI) of 40.0-44.9 in adult Z68.41 ; Morbid (severe) obesity due to excess calories E66.01 ; History of IBS Z87.19 and Family history of colon cancer requiring screening colonoscopy Z80.0 [place] [address] [address]- 7049 Oct, [place] [address] 8[address]- 7343 Oct, Other acute postprocedural pain G89.18 ; Pain in left knee M25.562 ; Family history of colon cancer requiring screening colonoscopy Z80.0 and Hyperpigmentation L81.9 [place] [id number] [place] [address] 60127- 8466 May, [place] [address] 92453- 3035 May, Left knee injury S89.92XA [place] [address] 10571- 6285 Apr, [facility] [address] [address]- 5659 Apr, Left knee injury S89.92XA and Varicosities I86.8 [place] [address] 42616- 9041 Mar, [facility] [id number] [place] [address]75 -[address]15 Mar, Acute pain of left knee M25.562 and Strain of left knee, initial encounter S86.912A [place] [id number] [place] [address] 25701- 2967 05 Mar, 2015 Lower abdominal tenderness R10.819 and Breast tenderness N64.4 [place] [id number] [place] [address] 94188- 1044 Feb, [place] [id number] [place] [address] 42766- 2349 Feb, Well woman exam Z01.419 ; Vaginal [...] and Complex cyst of left ovary N83.29 [place] [id number] [place] [address] 63823- 1410 16 Feb, 2015 Abdominal pain R10.9 and Pelvic pain R10.2 [place] [id number] [place] [address] 65604- 6679 Feb, [place] [id number] [place] [address] 05796- 8105 Feb, [place] [id number] [place] [address] 16762- 6241 Feb, General medical exam Z00.00 ; Right upper quadrant pain R10.11 and History of borderline diabetes mellitus Z87.898 [place] [id number] [place] [address] 19174- 4094 Feb, Right upper quadrant pain R10.11 [place] [id number] [place] [address] 34973- 1565 28 Jun, 2014 Lumbago 724.2 [place] [address] [place] [id number] [address] 9446 14 Jun, 2014 [facility] [address] [id number] [place] [address]- 8176 13 Jun, 2014 [facility] [place] [facility] [address] [id number] [place] [address] 2546 18 May, 2014 [facility] [place] [facility] [address] [id number] [place] [address]- 4466 May, [facility] [place] [facility] [address] [id number] [place] [address]- 6298 Apr, [facility] [place] [facility] [address] [id number] [place] [address]- 9346 Apr, [facility] [place] [facility] [address] [id number] [place] [address]- 2945 Mar, [facility] [place] [facility] [address] [id number] [place] [address]- 9896 Mar, [facility] [place] [facility] [address] [id number] [place] [address]- 3315 Mar, [facility] [place] [facility] [address] [id number] [place] [address]- 8024 Mar, [facility] [place] [facility] [address] [id number] [place] [address]- 3808 Mar, [facility] [place] [facility] [address] [id number] [place] [address]- 1726 Mar, [facility] [place] [facility] [address] [id number] [place] [address]- 4046 16 Mar, 2014 [facility] [place] [facility] [address] [id number] [place] [address]- 4656 Feb, [facility] [place] [facility] [address] [id number] [place] [address]- 6846 Feb, [facility] [place] [facility] [address] [id number] [place] [address]- 9033 Feb, [facility] [place] [facility] [address] [id number] [place] [address]- 1984 Feb, [facility] [place] [facility] [address] [id number] [place] [address]- 3054 Feb, [facility] [place] [facility] [address] [id number] [place] [address]- 2983 Jan, [facility] [place] [facility] [address] [id number] [place] [address]- 1430 Jan, [facility] [place] [facility] [address] [id number] [place] [address]- 5896 Oct, [facility] [place] [facility] [address] [id number] [place] [address]- 9757 Oct, [facility] [place] [facility] [address] [facility] [id number] [place] [address]- 6806 Sep, [facility] [place] [facility] [address] [id number] [place] [address]- 9436 Sep, [facility] [place] [facility] [address] [id number] [place] [address]- 8122 Aug, [facility] [place] [facility] [address] [facility] [id number] [place] [address]- 5603 Aug, [facility] [place] [facility] [address] [id number] [place] [address]- 5203 Aug, [facility] [place] [facility] [address] [id number] [address]- 5574 Apr, [facility] [place] [facility] [address] [id number] [place] [address]- 0863 Apr, [facility] [place] [facility] [address] [id number] [place] [address]- 7947 Apr, [facility] [place] [facility] [address] [facility] [id number] [place] [address]- 1910 Apr, [facility] [place] [facility] [address] [id number] [place] [address]- 4261 Apr, [facility] [address] [id number] [place] [address]- 5575 Mar, [facility] [address] [id number] [place] [address]- 2828 Mar, [facility] [address] [id number] [place] [address]- 4642 Mar, [facility] [address] [id number] [place] [address]- 9980 Mar, [facility] [address] [id number] [place] [address]- 7295 Mar, [facility] [address] [id number] [place] [address]- 9766 Mar, [facility] [address] [id number] [place] [address]- 7035 Mar, [facility] [address] [id number] [place] [address]- 9025 Mar, [facility] [address] [id number] [place] [address]- 1060 Mar, [facility] [address] [id number] [place] [address]- 2123 Oct, [facility] [address] [id number] [place] [address]- 6885 July, [facility] [address] [id number] [place] [address]- 7756 July, [facility] [address] [id number] [place] [address]- 5621 Jun, [facility] [address] [id number] [place] [address]- 6164 May, [facility] [address] [id number] [place] [address]- 1039 Feb, [facility] [address] [facility] [id number] [place] [address]- 9496 Feb, [facility] [address] [facility] [id number] [address]- 2546 July, [facility] [address] [facility] [id number] [address]- 2546 Apr, [facility] [address] [facility] [id number], [place] [address]- 2546 Jan, IMMUNIZATIONS No Known Immunizations SOCIAL HISTORY Never Assessed REASON FOR VISIT Abscess tooth right lower started 3-4 days ago JStrasserRN PLAN OF CARE VITAL SIGNS Height 62 in 2017-03-08 Weight 178.8 lbs 2017-03-08 Temperature 98.9 degrees Fahrenheit 2017-03-08 Heart Rate 72 bpm 2017-03-08 Respiratory Rate 20 2017-03-08 BMI 32.70 kg/m2 2017-03-08 Blood pressure systolic 100 mmHg 2017-03-08 Blood pressure diastolic 70 mmHg 2017-03-08 MEDICATIONS Medication Instructions Dosage Frequency Start Date End Date Duration Status Simvastatin 20 MG Orally Once a day 1 tablet in the evening 24h Feb, Not-Taking Amoxicillin 500 mg Orally every 12 hrs 2 capsules 12h Feb,Feb 10 days Active Ondansetron 4 MG Orally every 8 hrs 1 tablet on the tongue and allow to dissolve 8h Feb, Not-Taking Orajel Active Omeprazole 20 MG Orally Once a day 1 capsule 24h Not-Taking Ergocalciferol 44973 UNIT Orally once weekly for 12 weeks 1 capsule Jun, Not-Taking Flexeril 10 mg 1 tablet by Oral route 3 times per day PRN muscle spasm Apr, Not-Taking RESULTS No Results PROCEDURES No Known [...]
--- OUTSIDE RECORDS SUMMARY | 2018-02-19 18:12 | XMS REPORT ---
Author Author ARCADIOSARAHI Organization [facility] Address [address] [place] [address] Care Team Providers Care Uniformer Name Role Phone ERVINSARAHI Gaspar Unavailable PROBLEMS Type Condition ICD9-CM Code TGU78-GT Code Onset Dates Condition Status SNOMED Code Problem Other obesity due to excess calories E66.09 Active 487134659 Problem Body mass index (BMI) of 31.0-31.9 in adult Z68.31 Active 684887969 Problem Varicosities I86.8 Active 413348428 Problem Breast tenderness N64.4 Active 12785024 Problem Unspecified mood [affective] disorder F39 Active 94507223 Problem Anxiety state, unspecified F41.1 Active 711918031 ALLERGIES No Information ENCOUNTERS Encounter Location Date Diagnosis [facility] [address] [address] Jun, [facility] [address] [address] Apr, Cough R05 and Influenza J11.1 [facility] [address] [address]- [address]6 Apr, Screening breast examination Z12.31 ; Breast tenderness in female N64.4 ; Other obesity due to excess calories E66.09 and Body mass index ( BMI) of 31.0-31.9 in adult Z68.31 [facility] [address] [address] Apr, Gastroenteritis K52.9 [facility] [address] [id number] Mar, Dental examination Z01.20 and Dental caries K02.9 [facility] [address] [address] Feb, Gum abscess K05.219 [place] [address] [place] [id number] [place] [address] 34069- 5867 Feb, [place] [address] [address] [id number] [place] [address] 29727- 4160 Dec, Varicosities I86.8 [place] [address] [address] [id number] [place] [address] 10768- 0623 Sep, [place] [address] [id number] [place] [address] 31175- 3888 Sep, [place] [address] [id number] [place] [address] 49342- 5238 Sep, Anxiety state, unspecified F41.1 [place] [id number] [place] [address] 63581- 5275 Aug, Unspecified mood [affective] disorder F39 and Eating disorder, unspecified F50.9 [place] [address] [address] [id number] [place] [address] 30288- 7580 Aug, Anxiety state, unspecified F41.1 [place] [address] [address] [id number] [place] [address] 28973- 4909 Jun, [place] [address] [address] [id number] [place] [address] 58880- 2488 Jun, Fatigue, unspecified type R53.83 [place] [address] [address] [id number] [place] [address] 00136- 3235 Jun, Abdominal pain, left lower quadrant R10.32 ; Candidiasis, cutaneous B37.2 ; Fatigue, unspecified type R53.83 ; Morbid (severe) obesity due to excess calories E66.01 ; General medical exam Z00.00 and Diverticulitis of large intestine without perforation or abscess without bleeding K57.32 [facility] [address] [address] May, Left wrist pain M25.532 and Left wrist sprain, initial encounter S63.502A [facility] [id number] [place] [address] 55429- 8768 02 May, 2016 General medical exam Z00.00 [place] [address] [address] [id number] [place] [address] 64569- 3406 12 Mar, 2016 Encounter for routine adult health examination with abnormal findings Z00.01 ; Body mass index (BMI) of 40.0-44.9 in adult Z68.41 ; Morbid (severe) obesity due to excess calories E66.01 ; History of IBS Z87.19 and Family history of colon cancer requiring screening colonoscopy Z80.0 [place] [address] [address] [id number] [place] [address] 78862- 2179 Oct, [place] [address] [place] [address] [id number] [place] [address] 92973- 4650 Oct, Other acute postprocedural pain G89.18 ; Pain in left knee M25.562 ; Family history of colon cancer requiring screening colonoscopy Z80.0 and Hyperpigmentation L81.9 [place] [address] [address] [id number] [place] [address] 91351- 9457 May, [place] [address] [place] [address] [id number] [place] [address] 30418- 2345 May, Left knee injury S89.92XA [place] [address] [place] [address] [id number] [place] [address] 46594- 8607 Apr, [facility] [id number] [place] [address] 45193- 1086 Apr, Left knee injury S89.92XA and Varicosities I86.8 [place] [address] [address] [id number] [place] [address] 48707- 0584 Mar, [facility] [id number] [place] [address] 77844 -3681 Mar, Acute pain of left knee M25.562 and Strain of left knee, initial encounter S86.912A [place] [address] [address] [id number] [place] [address] 03014- 9282 05 Mar, 2015 Lower abdominal tenderness R10.819 and Breast tenderness N64.4 [place] [address] [address]- 6940 Feb, [place] [address] 26281- 9649 Feb, Well woman exam Z01.419 ; Vaginal [...] and Complex cyst of left ovary N83.29 [place] [address] 14981- 4505 16 Feb, 2015 Abdominal pain R10.9 and Pelvic pain R10.2 [place] [address] 22661- 9997 Feb, [place] [address] [address] [id number] [place] [address] 68541- 4747 Feb, [place] [address] [address] [id number] [place] [address] 14676- 4655 Feb, General medical exam Z00.00 ; Right upper quadrant pain R10.11 and History of borderline diabetes mellitus Z87.898 [place] [address] 019[address]- 6168 Feb, Right upper quadrant pain R10.11 [place] [address] [address] [id number] [place] [address] 89766- 4588 28 Jun, 2014 Lumbago 724.2 [facility] [place] [facility] [address] [id number] [place] [address]- 6584 14 Jun, 2014 [facility] [place] [facility] [address] [id number] [place] [address]- 2253 13 Jun, 2014 [facility] [place] [facility] [address] [id number] [place] [address]- 7149 May, [facility] [place] [facility] [address] [id number] [place] [address]- 9067 May, [facility] [place] [facility] [address] [id number] [place] [address]- 9928 Apr, [facility] [place] [facility] [address] [id number] [place] [address]- 9778 Apr, [facility] [place] [facility] [address] [id number] [place] [address]- 8969 Mar, [facility] [place] [facility] [address] [id number] [place] [address]- 5153 Mar, [facility] [place] [facility] [address] [id number] [place] [address]- 3393 Mar, [facility] [place] [facility] [address] [id number] [place] [address]- 7597 Mar, [facility] [place] [facility] [address] [id number] [place] [address]- 8643 Mar, [facility] [place] [facility] [address] [id number] [place] [address]- 6057 Mar, [facility] [place] [facility] [address] [id number] [place] [address]- 6053 Mar, [facility] [place] [facility] [address] [id number] [place] [address]- 4442 Feb, [facility] [place] [facility] [address] [id number] [place] [address]- 0069 Feb, [facility] [place] [facility] [address] [id number] [place] [address]- 1756 Feb, [facility] [place] [facility] [address] [id number] [place] [address]- 9546 Feb, [facility] [place] [facility] [address] [id number] [place] 3169 Feb, [facility] [place] [facility] [address] [facility] [id number] [place] [address]- 5898 Jan, [facility] [place] [facility] [address] [id number] [place] [address]- 4504 Jan, [facility] [place] [facility] [address] [id number] [place] [address]- 7281 Oct, [facility] [place] [facility] [address] [id number] [place] [address]- 6819 Oct, [facility] [place] [facility] [address] [id number] [place] [address]- 4157 Sep, [facility] [place] [facility] [address] [id number] [place] [address]- 6097 Sep, [facility] [place] [facility] [address] [id number] [place] [address]- 0703 Aug, [facility] [place] [facility] [address] [facility] [id number] [place] [address]- 7512 Aug, [facility] [place] [facility] [address] [facility] [id number] [place] [address]- 0355 Aug, [facility] [place] [facility] [address] [id number] [place] [address]- 1818 Apr, [facility] [place] [facility] [address] [id number] [place] [address] Apr, [facility] [place] [facility] [address] [id number] [place] [address] Apr, [facility] [place] [facility] [address] [id number] [place] [address] Apr, [facility] [place] [facility] [address] [id number] [place] [address] Apr, [facility] [address] [id number] [place] [address] Mar, [facility] [place] [facility] [address] [id number] [place] [address] Mar, [facility] [place] [facility] [address] [id number] [place] [address] Mar, [facility] [place] [facility] [address] [id number] [place] [address] Mar, [facility] [place] [facility] [address] [id number] [place] [address] Mar, [facility] [place] [facility] [address] [id number] [place] [address] Mar, [facility] [place] [facility] [address] [id number] [place] [address] Mar, [facility] [place] [facility] [address] [id number] [place] [address] Mar, [facility] [place] [facility] [address] [id number] [place] [address] Mar, [facility] [place] [facility] [address] [id number] [place] [address] Oct, [facility] [place] [facility] [address] [id number] [place] [address] July, [facility] [place] [facility] [address] [id number] [place] [address] July, [facility] [place] [facility] [address] [id number] [place] [address] Jun, [facility] [place] [facility] [address] [id number] [place] [address] May, [facility] [place] [facility] [address] [id number] [place] [address] Feb, [facility] [address] [facility] [id number] [address] Feb, [facility] [address] [id number] [address] July, [facility] [address] [facility] [id number] [address] Apr, [facility] [address] [id number] [address] Jan, IMMUNIZATIONS No Known Immunizations SOCIAL HISTORY Never Assessed REASON FOR VISIT FYI only PLAN OF CARE VITAL SIGNS MEDICATIONS Unknown [...]
--- OUTSIDE RECORDS SUMMARY | 2018-02-19 18:13 | XMS REPORT ---
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 Active 775232944 Problem Breast tenderness N64.4 Active 50155219 Problem Unspecified mood [affective] disorder F39 Active 51300697 Problem Anxiety state, unspecified F41.1 Active 672232364 ALLERGIES No Known Allergies ENCOUNTERS Encounter Location Date Diagnosis [facility] [place] [address] [address] Jun, [facility] [address] [address] Apr, Cough R05 and Influenza J11.1 [facility] [place] [address] [address] Apr, Screening breast examination Z12.31 ; Breast tenderness in female N64.4 ; Other obesity due to excess calories E66.09 and Body mass index ( BMI) of 31.0-31.9 in adult Z68.31 [facility] [address] [address] Apr, Gastroenteritis K52.9 [facility] [address] [id number] Mar, Dental examination Z01.20 and Dental caries K02.9 [facility] [address] [address] Feb, Gum abscess K05.219 [place] [id number] [place] [address] Feb, [place] [id number] [place] [address] Dec, Varicosities I86.8 [place] [id number] [place] [address]- [address] Sep, [place] [address] [address] Sep, [place] [address] [address] Sep, Anxiety state, unspecified F41.1 [place] [address] [address] Aug, Unspecified mood [affective] disorder F39 and Eating disorder, unspecified F50.9 [place] [id number] [place] [address] Aug, Anxiety state, unspecified F41.1 [place] [id number] [place] [address] Jun, [place] [id number] [place] [address]- [address] Jun, Fatigue, unspecified type R53.83 [place] [id number] [place] [address] Jun, Abdominal pain, left lower quadrant R10.32 ; Candidiasis, cutaneous B37.2 ; Fatigue, unspecified type R53.83 ; Morbid (severe) obesity due to excess calories E66.01 ; General medical exam Z00.00 and Diverticulitis of large intestine without perforation or abscess without bleeding K57.32 [facility] [address] [place] [address] May, Left wrist pain M25.532 and Left wrist sprain, initial encounter S63.502A [place] [address] [address] 02 May, 2016 General medical exam Z00.00 [place] [id number] [place] [address] 280[address] 12 Mar, 2016 Encounter for routine adult health examination with abnormal findings Z00.01 ; Body mass index (BMI) of 40.0-44.9 in adult Z68.41 ; Morbid (severe) obesity due to excess calories E66.01 ; History of IBS Z87.19 and Family history of colon cancer requiring screening colonoscopy Z80.0 [place] [address] [place] [address] Oct, [place] [id number] [place] [address]- 0692 Oct, Other acute postprocedural pain G89.18 ; Pain in left knee M25.562 ; Family history of colon cancer requiring screening colonoscopy Z80.0 and Hyperpigmentation L81.9 [place] [id number] [place] [address]- [address] May, [place] [id number] [place] [address]- 80[address] May, Left knee injury S89.92XA [place] [id number] [place] [address]- [address] Apr, [place] [id number] [place] [address] 6[address]99- 4[address] Apr, Left knee injury S89.92XA and Varicosities I86.8 [place] [id number] [place] [address]- [address] Mar, [facility] [address] [place] [address] Mar, Acute pain of left knee M25.562 and Strain of left knee, initial encounter S86.912A [place] [id number] [place] [address] 05 Mar, 2015 Lower abdominal tenderness R10.819 and Breast tenderness N64.4 [place] [address] [address] Feb, [place] [address] [address] Feb, Well woman exam Z01.419 ; Vaginal [...] and Complex cyst of left ovary N83.29 [place] [address] [address]- [address] 16 Feb, 2015 Abdominal pain R10.9 and Pelvic pain R10.2 [place] [address] [address] Feb, [place] [address] [address] Feb, [place] [address] [address] Feb, General medical exam Z00.00 ; Right upper quadrant pain R10.11 and History of borderline diabetes mellitus Z87.898 [place] [address] [address] Feb, Right upper quadrant pain R10.11 [place] [address] [address] 28 Jun, 2014 Lumbago 724.2 [place] [address] [address] 14 Jun, 2014 [facility] [place] [facility] [address] [id number] [place] [address] 13 Jun, 2014 [facility] [place] [facility] [address] [id number] [place] [address] 18 May, 2014 [facility] [place] [facility] [address] [id number] [place] [address] 39[address] May, [facility] [place] [facility] [address] [id number] [place] [address] 5704 Apr, [facility] [place] [facility] [address] [id number] [place] [address] 9870 Apr, [facility] [place] [facility] [address] [id number] [place] [address] 97[address] Mar, [facility] [place] [facility] [address] [id number] [place] [address]236 Mar, [facility] [place] [facility] [address] [id number] [place] [address]- 7[address] Mar, [facility] [place] [facility] [address] [id number] [place] [address] 2769 Mar, [facility] [place] [facility] [address] [facility] [id number] [place] [address]- [address] Mar, [facility] [place] [facility] [address] [id number] [place] [address]- 115[address] Mar, [facility] [place] [facility] [address] [id number] [place] [address]- 3446 Mar, [facility] [place] [facility] [address] [id number] [place] [address]- 1240 Feb, [facility] [place] [facility] [address] [id number] [place] [address]- 9641 Feb, [facility] [place] [facility] [address] [facility] [id number] [place] [address]- 1659 Feb, [facility] [place] [facility] [address] [id number] [place] [address]- 0782 Feb, [facility] [place] [facility] [address] [id number] [place] [address]- 9757 Feb, [facility] [place] [facility] [address] [id number] [place] [address]- 2147 Jan, [facility] [place] [facility] [address] [id number] [place] [address]- 3[address] Jan, [facility] [place] [facility] [address] [id number] [place] [address]- 2602 Oct, [facility] [place] [facility] [address] [id number] [place] [address]- 0729 Oct, [facility] [place] [facility] [address] [facility] [id number] [place] [address]- 0525 Sep, [facility] [place] [facility] [address] [id number] [place] [address]- 3368 Sep, [facility] [place] [facility] [address] [id number] [place] [address]- 4160 Aug, [facility] [place] [facility] [address] [id number] [place] [address]- 8298 Aug, [facility] [place] [facility] [address] [facility] [id number] [place] [address]- 6313 Aug, [facility] [place] [facility] [address] [id number] [place] [address]- 9540 Apr, [facility] [place] [facility] [address] [id number] [place] [address]- 5038 Apr, [facility] [place] [facility] [address] [id number] [place] [address]- 9853 Apr, [facility] [place] [facility] [address] [facility] [id number] [place] [address]- 2610 Apr, [facility] [place] [facility] [address] [facility] [id number] [address]- [address] Apr, [facility] [address] [id number] [place] [address]- 5678 Mar, [facility] [place] [facility] [address] [id number] [place] [address]- 7842 Mar, [facility] [place] [facility] [address] [id number] [place] [address]- 9447 Mar, [facility] [place] [facility] [address] [id number] [place] [address]- 1314 Mar, [facility] [place] [facility] [address] [id number] [place] [address]- 8382 Mar, [facility] [place] [facility] [address] [id number] [place] [address]- 3888 Mar, [facility] [address] [id number] [place] [address]- 8036 Mar, [facility] [place] [facility] [address] [id number] [place] [address]- 2362 Mar, [facility] [address] [id number] [place] [address]- 3425 Mar, [facility] [place] [facility] [address] [id number] [place] [address]- 2684 Oct, [facility] [place] [facility] [address] [id number] [place] [address]- 6346 July, [facility] [place] [facility] [address] [id number] [place] [address]- 0758 July, [facility] [place] [facility] [address] [id number] [place] [address]- 2073 Jun, [facility] [place] [facility] [address] [id number] [place] [address]- 4429 May, [facility] [place] [facility] [address] [id number] [place] [address]- 7[address] Feb, [facility] [place] [facility] [address] [facility] [id number] [place] Feb, [facility] [place] [address] [facility] [id number] [address] July, [facility] [place] [address] [facility] [id number] [address]- [address] Apr, [facility] [place] [address] [facility] [id number][place] [address] Jan, IMMUNIZATIONS No Known Immunizations SOCIAL HISTORY Never Assessed REASON FOR VISIT david/facial swelling PLAN OF CARE Activity Details Follow Up ivette Reason:JESSIE w/ Hygiene VITAL SIGNS Height 62 in 2017-04-14 Blood pressure systolic 102 mmHg 2017-04-14 Blood pressure diastolic 56 mmHg 2017-04-14 MEDICATIONS Medication Instructions Dosage Frequency Start Date End Date Duration Status Ergocalciferol 78079 UNIT Orally once weekly for 12 weeks 1 capsule Jun, Not-Taking Flexeril 10 mg 1 tablet by Oral route 3 times per day PRN muscle spasm Apr, Not-Taking Ondansetron 4 MG Orally every 8 hrs 1 tablet on the tongue and allow to dissolve 8h Feb, Not-Taking Simvastatin 20 MG Orally Once a day 1 tablet in the evening 24h Feb, Not-Taking Omeprazole 20 MG Orally Once a day 1 capsule 24h Not-Taking Orajel Not-Taking RESULTS No Results PROCEDURES Procedure Date Ordered Result Body Site LTD ORAL EVALUATION - PROBLEM FOCUS Apr 14, 2017 INTRAORL-PERIAPICAL 1 FILM 39797 Apr 14, 2017 EXTRAC ERUPTED TOOTH/EXPOSED ROOT Apr 14, 2017 BITEWING - SINGLE FILM Apr 14, 2017 INSTRUCTIONS MEDICATIONS ADMINISTERED No Known Medications [...]
--- OUTSIDE RECORDS SUMMARY | 2018-02-19 18:19 | XMS REPORT | Continuity of Care Document ---
Author Author [facility] Address Unknown Phone Unavailable Allergies Active Description Code Type Severity Reaction Onset Reported/Identified Relationship to Patient Clinical Status Yes NO KNOWN DRUG ALLERGIES NO KNOWN DRUG ALLERG UNKNOWN Yes NO KNOWN DRUG ALLERGIES UNKNOWN NO KNOWN DRUG ALLERG Yes NKANo Known Allergies NKA Miscellaneous Allergy Mild N/A 07/24/2016 Yes No Known Drug Allergies [id number] Drug Allergy Unknown N/A 11/10/2016 Medications Medication [...] S 716.90 ARTHRITIS/ ARTHROPATHY, UNSPECIFIED 08/10/2009 GABRIEL SLABBER LIGHT, BERTHA S 724.5 BACKACHE UNSPECIFIED 08/10/2009 POPE DO, ROLY K 716.90 ARTHRITIS/ ARTHROPATHY, UNSPECIFIED 08/10/2009 POPE DO, ROLY K 724.5 BACKACHE UNSPECIFIED 08/10/2009 MIRIAN SLABBER LIGHT, VERONIQUE R 716.90 ARTHRITIS/ ARTHROPATHY, UNSPECIFIED 08/10/2009 MIRIAN SLABBER LIGHT, VERONIQUE R 724.5 BACKACHE UNSPECIFIED 08/10/2009 MIRIAN SLABBER LIGHT, VERONIQUE R 716.90 ARTHRITIS/ ARTHROPATHY, UNSPECIFIED 08/10/2009 MIRIAN SLABBER LIGHT, VERONIQUE R 724.5 BACKACHE UNSPECIFIED 08/10/2009 MIRIAN SLABBER LIGHT, VERONIQUE R 716.90 ARTHRITIS/ ARTHROPATHY, UNSPECIFIED 08/10/2009 MRIIAN SLABBER LIGHT, VERONIQUE R 724.5 BACKACHE UNSPECIFIED 08/10/2009 MIRIAN SLABBER LIGHT, VERONIQUE R 716.90 ARTHRITIS/ ARTHROPATHY, UNSPECIFIED 08/10/2009 MIRIAN SLABBER LIGHT, VERONIQUE R 724.5 BACKACHE UNSPECIFIED 09/10/2009 717.7 [...] OR MENISCUS OF KNEE, CURRENT 09/10/2009 MIRIAN SLABBER LIGHT, VERONIQUE R 717.7 CHONDROMALACIA OF [place]ATELLA 09/10/2009 MIRIAN SLABBER LIGHT, VERONIQUE R 836.0 TEAR OF MEDIAL CARTILAGE [...] OR MENISCUS OF KNEE, CURRENT 09/10/2009 MIRIAN SLABBER LIGHT, VERONIQUE R 717.7 CHONDROMALACIA OF [place] 09/10/2009 MIRIAN SLABBER LIGHT, VERONIQUE R 836.0 TEAR OF MEDIAL CARTILAGE OR MENISCUS OF KNEE, CURRENT 09/10/2009 MIRIAN SLABBER LIGHT, VERONIQUE R 717.7 CHONDROMALACIA OF [place] 09/10/2009 MIRIAN SLABBER LIGHT, VERONIQUE R 836.0 TEAR OF MEDIAL CARTILAGE OR MENISCUS OF KNEE, CURRENT 09/10/2009 MIRIAN SLABBER LIGHT, VERONIQUE R 717.7 CHONDROMALACIA OF [place] 09/10/2009 MIRIAN SLABBER LIGHT, VERONIQUE R 836.0 TEAR OF MEDIAL CARTILAGE OR MENISCUS OF KNEE, CURRENT 09/10/2009 MIRIAN SLABBER LIGHT, VERONIQUE R 717.7 CHONDROMALACIA OF [place] 09/10/2009 MIRIAN SLABBER LIGHT, VERONIQUE R 836.0 TEAR OF MEDIAL CARTILAGE [...] IN JOINT INVOLVING LOWER LEG 06/20/2012 MIRIAN SLABBER LIGHT, VERONIQUE R 719.46 PAIN IN JOINT INVOLVING LOWER LEG 06/20/2012 MIRIAN NEALN, VERONIQUE R 719.46 PAIN IN JOINT INVOLVING LOWER LEG 06/20/2012 MIRIAN NEALN, VERONIQUE R 719.46 PAIN IN JOINT INVOLVING LOWER LEG 08/24/2012 726.73 HEEL SPUR 08/24/2012 726.73 HEEL SPUR 08/24/2012 MIRIAN SLABBER LIGHT, VERONIQUE R 726.73 HEEL SPUR 08/24/2012 ROLY POPE DO K 726.73 HEEL SPUR 08/24/2012 GABRIEL MEEHAN BERTHA S 726.73 HEEL SPUR 08/24/2012 NOEL POPE DOA K 726.73 HEEL SPUR 08/24/2012 MIRIAN SLABBER LIGHT, VERONIQUE R 726.73 HEEL SPUR 08/24/2012 MIRIAN SLABBER LIGHT, VERONIQUE R 726.73 HEEL SPUR 08/24/2012 MIRIAN SLABBER LIGHT, VERONIQUE R 726.73 HEEL SPUR 08/24/2012 MIRIAN SLABBER LIGHT, VERONIQUE R 726.73 HEEL SPUR 04/19/2013 MIRIAN [...] MORALES APRN Ot 729.5 08/26/2013 JAELYN MORALES SLABBER LIGHT Ot 599.0 08/26/2013 JAELYN MORALES SLABBER LIGHT Ot 787.02 10/22/2013 BERTHA RIOS APRN S 729.4 PLANTAR FASCIITIS 10/22/2013 TOSHIA LEON ROLY K 729.4 PLANTAR FASCIITIS 10/22/2013 MIRIAN SLABBER LIGHT, VERONIQUE R 729.4 PLANTAR FASCIITIS 10/22/2013 MIRIAN NEALN, VERONIQUE R 729.4 PLANTAR FASCIITIS 10/22/2013 MIRIAN SLABBER LIGHT, VERONIQUE R 729.4 PLANTAR FASCIITIS 10/22/2013 MIRAIN SLABBER LIGHT, VERONIQUE R 729.4 PLANTAR FASCIITIS 02/03/2014 POPE [...] MEEHAN VERONIQUE R 786.2 COUGH 03/04/2014 MIRIAN SLABBER LIGHT, VERONIQUE R 780.79 OTHER MALAISE AND FATIGUE 03/04/2014 MIRIAN SLABBER LIGHT, VERONIQUE R 786.2 COUGH 03/04/2014 MIRIAN SLABBER LIGHT, VERONIQUE R 780.79 OTHER MALAISE AND FATIGUE 03/04/2014 MIRIAN SLABBER LIGHT, VERONIQUE R 786.2 COUGH 03/04/2014 MIRIAN SLABBER LIGHT, VERONIQUE R 780.79 OTHER MALAISE AND FATIGUE 03/04/2014 MIRIAN SLABBER LIGHT, VERONIQUE R 786.2 COUGH 05/01/2014 MIRIAN SLABBER LIGHT, VERONIQUE R 723.1 CERVICALGIA 05/01/2014 MIRIAN SLABBER LIGHT, VERONIQUE R 723.1 CERVICALGIA 05/01/2014 MIRIAN SLABBER LIGHT, VERONIQUE R 723.1 CERVICALGIA 07/12/2014 Ot 717.3 07/12/2014 Ot 719.06 07/12/2014 JAELYN MORALES SLABBER LIGHT Ot 724.2 07/12/2014 JAELYN MORALES SLABBER LIGHT Ot 724.4 07/17/2014 MIRIAN SLABBER LIGHT, VERONIQUE R 724.2 LUMBAGO/ LOW BACK PAIN 07/17/2014 MIRIAN SLABBER LIGHT, VERONIQUE R 729.1 MYALGIA AND MYOSITIS UNSPECIFIED [...] BOTH CERVIX AND UTER 03/31/2015 SARAHI ERVIN SLABBER LIGHT Ot R10.11 05/20/2015 QAMAR GODOY SLABBER LIGHT Ot N64.4 05/22/2015 SARAHI ERVIN SLABBER LIGHT Ot R10.11 05/22/2015 QAMAR GODOY SLABBER LIGHT Ot N64.4 06/01/2015 SARAHI ERVIN SLABBER LIGHT Ot S89.92XA 06/01/2015 SARAHI ERVIN SLABBER LIGHT Ot X58.XXXA 06/01/2015 SARAHI ERVIN SLABBER LIGHT Ot Y99.8 09/10/2015 SARAHI ERVIN SLABBER LIGHT Ot R10.11 RIGHT UPPER QUADRANT PAIN 09/10/2015 QAMAR GODOY SLABBER LIGHT Ot N64.4 MASTODYNIA 09/10/2015 SARAHI ERVIN SLABBER LIGHT Ot S89.92XA UNSPECIFIED INJURY OF LEFT LOWER LEG, IN 09/10/2015 SARAHI ERVIN SLABBER LIGHT Ot X58.XXXA EXPOSURE TO OTHER SPECIFIED FACTORS, INI 09/10/2015 SARAHI ERVIN SLABBER LIGHT Ot Y99.8 OTHER EXTERNAL CAUSE STATUS 09/10/2015 [...] PAIN IN RIGHT ARM 11/19/2015 SARAHI ERVIN SLABBER LIGHT Ot R10.11 RIGHT UPPER QUADRANT PAIN 11/23/2015 SARAHI ERVIN SLABBER LIGHT Ot M25.562 PAIN IN LEFT KNEE 11/23/2015 SARAHI ERVIN SLABBER LIGHT Ot 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] 11/25/2015 SARAHI ERVIN SLABBER LIGHT Ot M25.562 PAIN IN LEFT KNEE 11/29/2015 SARAHI ERVIN SLABBER LIGHT Ot M25.562 PAIN IN LEFT KNEE 03/08/2016 SARAHI ERVIN SLABBER LIGHT Ot R10.11 RIGHT UPPER QUADRANT PAIN 03/08/2016 SARAHI ERVIN SLABBER LIGHT Ot M25.562 PAIN IN LEFT KNEE 03/08/2016 SARAHI ERVIN SLABBER LIGHT Ot M25.562 PAIN IN LEFT KNEE 03/08/2016 SARAHI ERVIN SLABBER LIGHT Ot 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] 03/08/2016 ADILIA RAHMAN Ot J02.9 ACUTE PHARYNGITIS, UNSPECIFIED 03/08/2016 ADILIA RAHMAN Ot J20.9 ACUTE BRONCHITIS, UNSPECIFIED 03/08/2016 ADILIA RAHMAN Ot R11.2 NAUSEA WITH VOMITING, UNSPECIFIED 03/08/2016 ADILIA RAHMAN Ot R19.7 DIARRHEA, UNSPECIFIED 03/08/2016 SARAHI ERVIN SLABBER LIGHT Ot R10.11 RIGHT UPPER QUADRANT PAIN 03/08/2016 QAMAR GODOY SLABBER LIGHT Ot N64.4 MASTODYNIA 03/08/2016 SARAHI ERVIN SLABBER LIGHT Ot S89.92XA UNSPECIFIED INJURY OF LEFT LOWER LEG, IN 03/08/2016 SARAHI ERVIN SLABBER LIGHT Ot X58.XXXA EXPOSURE TO OTHER SPECIFIED FACTORS, INI 03/08/2016 SARAHI ERVIN SLABBER LIGHT Ot Y99.8 OTHER EXTERNAL CAUSE STATUS 03/09/2016 ADILIA RAHMAN Ot J02.9 ACUTE PHARYNGITIS, UNSPECIFIED 03/09/2016 ADILIA RAHMAN Ot J20.9 ACUTE BRONCHITIS, UNSPECIFIED 03/09/2016 ADILIA RAHMAN Ot R11.2 NAUSEA WITH VOMITING, UNSPECIFIED 03/09/2016 ADILIA RAHMAN Ot R19.7 DIARRHEA, UNSPECIFIED 04/08/2016 Aleksandr Bojorquez 848.8 OTHER SPECIFIED SITES OF SPRAINS AND STRAINS 04/08/2016 Aleksandr Bojorquez S29.012A STRAIN OF MUSCLE AND TENDON OF BACK WALL OF THORAX, INIT 04/21/2016 SARAHI ERVIN SLABBER LIGHT Ot R10.11 RIGHT UPPER QUADRANT PAIN 04/21/2016 QAMAR GODOY SLABBER LIGHT Ot N64.4 MASTODYNIA 04/21/2016 SARAHI ERVIN SLABBER LIGHT Ot S89.92XA UNSPECIFIED INJURY OF LEFT LOWER LEG, IN 04/21/2016 SARAHI ERVIN SLABBER LIGHT Ot X58.XXXA EXPOSURE TO OTHER SPECIFIED FACTORS, INI 04/21/2016 SARAHI ERVIN SLABBER LIGHT Ot Y99.8 OTHER EXTERNAL CAUSE STATUS 04/21/2016 JAELYN MORALES APRN Ot E11.9 TYPE 2 DIABETES MELLITUS WITHOUT COMPLIC 04/21/2016 JAELYN MORALES APRN Ot M54.41 LUMBAGO WITH SCIATICA, RIGHT SIDE 04/21/2016 JAELYN MORALES APRN Ot M54.5 LOW BACK PAIN 04/22/2016 JAELYN MORALES APRN Ot E11.9 TYPE 2 DIABETES MELLITUS WITHOUT COMPLIC 04/22/2016 JAELYN MORALES SLABBER LIGHT Ot M54.41 LUMBAGO WITH SCIATICA, RIGHT SIDE 04/22/2016 JAELYN MORALES APRN Ot M54.5 LOW BACK PAIN 04/27/2016 JAELYN MORALES APRN Ot E11.9 TYPE 2 DIABETES MELLITUS WITHOUT COMPLIC 04/27/2016 JAELYN MORALES APRN Ot M54.41 LUMBAGO WITH SCIATICA, RIGHT SIDE 04/27/2016 JAELYN MORALES SLABBER LIGHT Ot M54.5 LOW BACK PAIN 04/29/2016 JAELYN MORALES SLABBER LIGHT Ot E11.9 TYPE 2 DIABETES MELLITUS WITHOUT COMPLIC 04/29/2016 MORALES, PETER J SLABBER LIGHT Ot M54.41 LUMBAGO WITH SCIATICA, RIGHT SIDE 04/29/2016 JAELYN MORALES SLABBER LIGHT Ot M54.5 LOW BACK PAIN 07/21/2016 SARAHI ERVIN Anabel SLABBER LIGHT Ot R10.11 RIGHT UPPER QUADRANT PAIN 07/21/2016 QAMAR GODOY SLABBER LIGHT Ot N64.4 MASTODYNIA 07/21/2016 SARAHI ERVIN SLABBER LIGHT Ot S89.92XA UNSPECIFIED INJURY OF LEFT LOWER LEG, IN 07/21/2016 SARAHI ERVIN Anabel SLABBER LIGHT Ot X58.XXXA EXPOSURE TO OTHER SPECIFIED FACTORS, INI 07/21/2016 SARAHI ERVIN Anabel SLABBER LIGHT Ot Y99.8 OTHER EXTERNAL CAUSE STATUS 07/24/2016 SARAHI ERVIN Anabel SLABBER LIGHT Ot R10.11 RIGHT UPPER QUADRANT PAIN 07/24/2016 QAMAR GODOY SLABBER LIGHT Ot N64.4 MASTODYNIA 07/24/2016 ERVIN SARAHI Anabel SLABBER LIGHT Ot S89.92XA UNSPECIFIED INJURY OF LEFT LOWER LEG, IN 07/24/2016 ERVINSINANSARAHI Anabel SLABBER LIGHT Ot X58.XXXA EXPOSURE TO OTHER SPECIFIED FACTORS, INI 07/24/2016 ERVINSARAHI Gaspar Anabel SLABBER LIGHT Ot Y99.8 OTHER EXTERNAL CAUSE STATUS 07/24/2016 INOCENCIO LEMUS, WATSON Ot R10.11 RIGHT UPPER QUADRANT PAIN 07/24/2016 WATSON PAINTER MD Ot R10.32 LEFT LOWER QUADRANT PAIN 07/24/2016 NINO WINKLER MD Ot E11.9 TYPE 2 DIABETES MELLITUS WITHOUT COMPLIC 07/24/2016 NINO WINKLER MD T Ot N83.292 OTHER OVARIAN CYST, LEFT SIDE 07/24/2016 NINO WINKLER MD T Ot R10.11 RIGHT UPPER QUADRANT PAIN 07/24/2016 NNIO WINKLER MD T Ot R11.2 NAUSEA WITH [...] 07/30/2016 NINO WINKLER MD Ot Z79.899 OTHER RETIREMENT (CURRENT) DRUG THERAPY 07/30/2016 NINO WINKLER MD, [...] RIGHT UPPER QUADRANT PAIN 09/07/2016 QAMAR GODOY SLABBER LIGHT Ot N64.4 MASTODYNIA 09/07/2016 SARAHI ERVIN SLABBER LIGHT Ot S89.92XA UNSPECIFIED INJURY OF LEFT LOWER LEG, IN 09/07/2016 SARAHI ERVIN SLABBER LIGHT Ot X58.XXXA EXPOSURE TO OTHER SPECIFIED FACTORS, INI 09/07/2016 SARAHI ERVIN SLABBER LIGHT Ot Y99.8 OTHER EXTERNAL CAUSE STATUS 09/07/2016 WATSON PAINTER MD Ot R10.11 RIGHT UPPER QUADRANT PAIN 09/07/2016 WATSON PAINTER MD Ot R10.32 LEFT LOWER QUADRANT PAIN 09/07/2016 WATSON PAINTER MD Ot R10.31 RIGHT LOWER QUADRANT PAIN 09/07/2016 WATSON PAINTER MD Ot R10.32 LEFT LOWER QUADRANT PAIN 09/21/2016 LYSSA MILES SLABBER LIGHT Ot K21.9 GASTRO-ESOPHAGEAL REFLUX DISEASE WITHOUT 11/17/2016 SARAHI ERVIN SLABBER LIGHT Ot R10.11 RIGHT UPPER QUADRANT PAIN 11/17/2016 QAMAR GODOY SLABBER LIGHT Ot N64.4 MASTODYNIA 11/17/2016 SARAHI ERVIN SLABBER LIGHT Ot S89.92XA UNSPECIFIED INJURY OF LEFT LOWER LEG, IN 11/17/2016 SARAHI ERVIN SLABBER LIGHT Ot X58.XXXA EXPOSURE TO OTHER SPECIFIED FACTORS, INI 11/17/2016 SARAHI ERVIN SLABBER LIGHT Ot Y99.8 OTHER EXTERNAL CAUSE STATUS 11/17/2016 WATSON PAINTER MD Ot R10.11 RIGHT UPPER QUADRANT PAIN 11/17/2016 WATSON PAINTER MD Ot R10.32 LEFT LOWER QUADRANT PAIN 11/17/2016 WATSON PAINTER MD Ot R10.31 RIGHT LOWER QUADRANT PAIN 11/17/2016 WATSON PAINTER MD Ot R10.32 LEFT LOWER QUADRANT PAIN 11/17/2016 LYSSA MILES SLABBER LIGHT Ot K21.9 GASTRO-ESOPHAGEAL REFLUX DISEASE WITHOUT 11/17/2016 [...] TYPE 2 DIABETES MELLITUS WITHOUT COMPLIC 06/20/2017 JERMEY MAC MD, Ot E78.00 PURE HYPERCHOLESTEROLEMIA, UNSPECIFIED [...] APRN Ot N64.4 MASTODYNIA 06/20/2017 SARAHI ERVIN SLABBER LIGHT Ot S89.92XA UNSPECIFIED INJURY OF LEFT LOWER LEG, IN 06/20/2017 SARAHI ERVIN SLABBER LIGHT Ot X58.XXXA EXPOSURE TO OTHER SPECIFIED FACTORS, INI 06/20/2017 SARAHI ERVIN SLABBER LIGHT Ot Y99.8 OTHER EXTERNAL CAUSE STATUS 06/20/2017 WATSON PAINTER MD Ot R10.11 RIGHT UPPER QUADRANT PAIN 06/20/2017 WATSON PAINTER MD Ot R10.32 LEFT LOWER QUADRANT PAIN 06/20/2017 WATSON PAINTER MD Ot R10.31 RIGHT LOWER QUADRANT PAIN 06/20/2017 WATSON PAINTER MD Ot R10.32 LEFT LOWER QUADRANT PAIN 06/20/2017 LYSSA MILES SLABBER LIGHT Ot K21.9 GASTRO-ESOPHAGEAL REFLUX DISEASE WITHOUT 06/20/2017 [...] SCREENING FOR MALIGNANT NE 07/25/2017 WATSON PAINTER MD, Ot Z80.0 FAMILY HISTORY OF MALIGNANT NEOPLASM OF 07/26/2017 SARAHI ERVIN SLABBER LIGHT Ot R10.11 RIGHT UPPER QUADRANT PAIN 07/26/2017 QAMAR GODOY SLABBER LIGHT Ot N64.4 MASTODYNIA 07/26/2017 SARAHI ERVIN SLABBER LIGHT Ot S89.92XA UNSPECIFIED INJURY OF LEFT LOWER LEG, IN 07/26/2017 SARAHI ERVIN SLABBER LIGHT Ot X58.XXXA EXPOSURE TO OTHER SPECIFIED FACTORS, INI 07/26/2017 SARAHI ERVIN SLABBER LIGHT Ot Y99.8 OTHER EXTERNAL CAUSE STATUS 07/26/2017 WATSON PAINTER MD Ot R10.11 RIGHT UPPER QUADRANT PAIN 07/26/2017 WATSON PAINTER MD, Ot R10.32 LEFT LOWER QUADRANT PAIN 07/26/2017 WATSON PAINTER MD Ot R10.31 RIGHT LOWER QUADRANT PAIN 07/26/2017 WATSON PAINTER MD, Ot R10.32 LEFT LOWER QUADRANT PAIN 07/26/2017 LYSSA MILES SLABBER LIGHT Ot K21.9 GASTRO-ESOPHAGEAL REFLUX DISEASE WITHOUT 07/26/2017 WATSON PAINTER MD Ot E66.01 MORBID (SEVERE) OBESITY DUE TO EXCESS CA 07/26/2017 WATSON PAINTER MD Ot Z01.812 ENCOUNTER FOR PREPROCEDURAL LABORATORY E 07/26/2017 WATSON PAINTER MD Ot K64.0 FIRST DEGREE HEMORRHOIDS 07/26/2017 WATSON PAINTER MD Ot Z12.11 ENCOUNTER FOR SCREENING FOR MALIGNANT NE 07/26/2017 WATSON PAINTER MD Ot Z80.0 FAMILY HISTORY OF MALIGNANT NEOPLASM OF 07/26/2017 WATSON PAINTER MD Ot Z80.1 FAMILY HISTORY OF MALIG NEOPLASM OF [place] 07/27/2017 WATSON PAINTER MD Ot K64.0 FIRST DEGREE HEMORRHOIDS 07/27/2017 WATSON PAINTER MD Ot Z12.11 ENCOUNTER FOR SCREENING FOR MALIGNANT NE 07/27/2017 WATSON PAINTER MD Ot Z80.0 FAMILY HISTORY OF MALIGNANT NEOPLASM OF 07/27/2017 WATSON PAINTER MD Ot Z80.1 FAMILY HISTORY OF MALIG NEOPLASM OF TRAC 07/30/2017 WATSON PAINTER MD Ot Z01.818 ENCOUNTER FOR OTHER PREPROCEDURAL EXAMIN 07/30/2017 WATSON PAINTER MD Ot Z12.11 ENCOUNTER FOR SCREENING FOR MALIGNANT NE 07/30/2017 WATSON PAINTER MD Ot Z80.0 FAMILY HISTORY OF MALIGNANT NEOPLASM OF 08/01/2017 WATSON PAINTER MD Ot K64.0 FIRST DEGREE HEMORRHOIDS 08/01/2017 WATSON PAINTER MD Ot Z12.11 ENCOUNTER FOR SCREENING FOR MALIGNANT NE 08/01/2017 WATSON PAINTER MD Ot Z80.0 FAMILY HISTORY OF MALIGNANT NEOPLASM OF 08/01/2017 WATSON PAINTER MD Ot Z80.1 FAMILY HISTORY OF MALIG NEOPLASM OF [place] 09/08/2017 Gunner Cuevas W 878.6 OPEN WOUND OF VAGINA, WITHOUT MENTION OF COMPLICATION 09/08/2017 Gunner Cuevas W S31.41 LACERATION WITHOUT FOREIGN BODY OF VAGINA AND VULVA 09/08/2017 Gunner Cuevas W 599.0 URINARY TRACT INFECTION, SITE NOT SPECIFIED 09/08/2017 BrownGunner W 878.6 OPEN WOUND OF VAGINA, WITHOUT MENTION OF COMPLICATION 09/08/2017 Gunner Cuevas W N39.0 URINARY TRACT INFECTION, SITE NOT SPECIFIED 09/08/2017 BrownGunner W S31.41 LACERATION WITHOUT FOREIGN BODY OF VAGINA AND VULVA 09/08/2017 Gunner Cuevas A 599.0 URINARY TRACT INFECTION, SITE NOT SPECIFIED 09/08/2017 BrownGunner W 878.4 OPEN WOUND OF VULVA, WITHOUT MENTION OF COMPLICATION 09/08/2017 Gunner Cuevas W 878.6 OPEN WOUND OF VAGINA, WITHOUT MENTION OF COMPLICATION 09/08/2017 Gunner Cuevas A N39.0 URINARY TRACT INFECTION, SITE NOT SPECIFIED 09/08/2017 Gunner Cuevas W S31.41 LACERATION WITHOUT FOREIGN BODY OF VAGINA AND VULVA 09/08/2017 Gunner Cuevas W S31.41XA LACERATION W/O FOREIGN BODY OF VAGINA AND VULVA, INIT ENCNTR 10/06/2017 NINO WINKLER MD Ot E11.9 TYPE 2 DIABETES MELLITUS WITHOUT COMPLIC 10/06/2017 NINO WINKLER MD Ot E78.00 PURE HYPERCHOLESTEROLEMIA, UNSPECIFIED 10/06/2017 NINO WINKLER MD Ot F41.9 ANXIETY DISORDER, UNSPECIFIED 10/06/2017 NINO WINKLER MD Ot R10.12 LEFT UPPER QUADRANT PAIN 10/06/2017 NINO WINKLER MD Ot R11.0 NAUSEA 10/06/2017 NINO WINKLER MD, Ot Z87.19 PERSONAL HISTORY OF OTHER DISEASES OF TH 10/06/2017 NINO WINKLER MD Ot Z87.59 PERSONAL HISTORY OF COMP OF PREG, CHLDBR 10/06/2017 NINO WINKLER MD Ot Z90.710 ACQUIRED ABSENCE OF BOTH CERVIX AND UTER 10/06/2017 NINO WINKLER MD Ot Z90.89 ACQUIRED ABSENCE OF OTHER ORGANS 10/06/2017 NINO WINKLER MD, Ot Z98.51 TUBAL LIGATION STATUS 10/06/2017 NION WINKLER MD Ot Z98.84 BARIATRIC SURGERY STATUS Procedures Code [place] [address] XRAY KNEE RIGHT 1 OR 2 VIEWS 06/20/2012 ORTHO SONIA HOWE 06/20/2012 61516 XRAY FOOT LEFT 2 VIEWS 08/24/2012 ORTHOPEDI SONIA HOWE 08/24/2012 64794 JOINT INJECTION- INTERMEDIATE JOINT 11/15/2012 J1040 DEPO MEDROL 80 MG INJ 11/15/2012 35262 ROUTINE VENIPUNCTURE 04/22/2013 86113 CBC 04/22/2013 [id number] GFR CALC (RESULT ONLY) 04/22/2013 14032 CMP 04/22/2013 73801 LIPID PANEL 04/22/2013 06513 TSH 04/22/2013 JOINT INJECTION - SMALL JOINT 09/19/2013 J1030 DEPO MEDROL 40 MG INJ 09/19/2013 16048 ROUTINE VENIPUNCTURE 03/04/2014 05081 MYCOPLASMA ANTIBODY 03/04/2014 21025 UA W/ CULTURE IF INDICATED 03/04/2014 45267 MONO TEST (IN-HOUSE) 03/04/2014 84216 CBC 03/04/2014 26602 XRAY CERVICAL SPINE, 2 OR 3 VIEWS 07/09/2014 72950 XRAY LUMBAR SPINE 2 OR 3 VIEWS 07/17/2014 [id number] EXCISION OF STOMACH, PERCUTANEOUS ENDOSC 11/17/2016 Results [...] INFLUENZA A AND B ANTIGENS BY IA [facility] Comprehensive metabolic panel - 03/08/16 18:44 Serum [...] or plasma urea nitrogen/creatinine mass ratio 13 [facility] Serum or plasma creatinine measurement with calculation of estimated glomerular filtration rate > [facility] Serum or plasma glucose measurement (mass/volume) 88 [...] - 03/08/16 19:27 Urine color determination YELLOW [facility] Urine clarity determination SLIGHTLY CLOUDY [facility] Urine pH measurement by test strip 6 [...] Vitamin D, 25-Hydroxy 15.0 ng/mL 30.0-100.0 Thyroid [place] Profile - 07/01/16 13:36 TSH 2.690 uIU/mL [...] panel - 07/28/16 10:23 ABO+Rh group AP NR Transfusion band number [id number] NR Blood group antibody screen NEGATIVE NR Complete urinalysis with reflex to culture - [...] Drug Screen + ETOH - 05/20/17 20:41 Head Of Maintenance Farideh To Donor ID By Employer Representitive Ethanol, Urine <10.00 mg/dL 20.00-80.00 Location [facility] Reason For Test Post Accident [...] protein measurement (mass/volume) 1.14 mg /dL 0.00-0.50 Urinalysis - 09/08/17 01:25 Icotest Negative Negative Urine Casts Granular cast: 0-2/HPF Urine Crystals Amorphous material: abundant/HPF Urine Volume Urine Volume Sufficient (10mL) Urine-Appearance Turbid Clear Urine-Bacteria Trace Urine-Bilirubin 1+ Negative Urine-Blood 2+ Negative Urine-Color Yellow Colorless-Lt. Yellow Urine-Epithelial Cells 10-20/HPF Urine-Glucose Negative Negative Urine-Ketones Negative Negative Urine-Leukocytes Trace Negative Urine-Mucus 2+ Urine-Nitrite Negative Negative Urine-Other Urine Saved if Culture Needed (48hrs from time of collection) Urine-pH 5.0 5-8.5 Urine-Protein 1+ Negative Urine-RBC 2-5/HPF Urine-Specific Verdon >=1.030 1.000-1.030 Urine-WBC 10-20/HPF Urobilinogen 0.2 0.2-1.0 Urine Culture - 09/08/17 01:25 PRELIM CULTURE RESULTS <10,000 Mixed Sammie Probable Skin Contaminant FINAL CULTURE RESULTS No Further Workup done MEDIA PLATED Setup at 02:50 on 09/08/2017 CULTURE SOURCE voided urine Thyroid Stimulating Hormone - 09/08/17 02:15 TSH 3.61 mIU/mL 0.32-5.00 Other Culture - 09/08/17 02:30 PRELIM CULTURE RESULTS Scant Gram Positive Mixed Sammie MEDIA PLATED Setup at 10:31 on 09/08/2017 Sensi - 09/08/17 02:30 FINAL CULTURE RESULTS Staphylococcus hominis subsp. hominis ( Isolate 1) Ampicillin/Sulbactam <=8/4 Ampicillin <=2 Amoxicillin/K Clavulanate <=4/2 Ceftriaxone <=8 Clindamycin <=0.5 Cefoxitin Screen N/R Ciprofloxacin <=1 Daptomycin <=0.5 Erythromycin >4 Nitrofurantoin <=32 Gentamicin <=4 Gentamicin Synergy Screen N/R Inducible Clindamycin <=4/0.5 Levofloxacin <=1 Linezolid 2 Moxifloxacin <=0.5 Oxacillin 0.5 Penicillin <=0.03 Rifampin <=1 Streptomycin Synergy N/R Synercid 1 Trimethoprim/ Sulfamethoxazole <=0.5/9.5 Tetracycline >8 Vancomycin 1 Complete urinalysis with reflex to culture - 10/05/17 22:57 Urine color determination YELLOW NRG Urine clarity [...] culture YES NRG Bacterial urine culture - 10/05/17 22:57 Bacterial urine culture [id number] NRG COLONY COUNT >100,000/ML NRG FTX;REPORTABLE RML REPORTED SENSITIVITY 10/07/17 11:05 NRG RML Sensitivity Panel - 10/05/17 22:57 Gentamicin susceptibility test by minimum inhibitory concentration < = NRG Trimethoprim/sulfamethoxazole susceptibility test by minimum inhibitoryconcentration > NRG Levofloxacin susceptibility test by minimum inhibitory concentration <= NRG Ampicillin susceptibility test by minimum inhibitory concentration > NRG Cefazolin susceptibility test by minimum inhibitory concentration 4 NRG Ceftriaxone susceptibility test by minimum inhibitory concentration <= NRG Ciprofloxacin susceptibility test by minimum inhibitory concentration <= NRG Meropenem susceptibility test by minimum inhibitory concentration < = NRG Nitrofurantoin susceptibility test by minimum inhibitory concentration <= NRG Amoxicillin and clavulanate potassium susc SHOAIB = NRG Complete blood count (CBC) with automated white blood cell (WBC) differential - 10/05/17 23:07 Blood leukocytes automated count (number/volume) 6.7 10*3/uL 4.3-11.0 Blood erythrocytes automated count (number/volume) 4.26 10*6/uL 4.35-5.85 Venous blood hemoglobin measurement (mass/volume) 12.5 g/dL 11.5-16.0 Blood hematocrit (volume fraction) 37 % 35-52 Automated erythrocyte mean corpuscular volume 86 [foz_us] 80-99 Automated erythrocyte mean corpuscular hemoglobin (mass per erythrocyte) 29 pg 25-34 Automated erythrocyte mean corpuscular hemoglobin concentration measurement ( mass/volume) 34 g/dL 32-36 Automated erythrocyte distribution width ratio 14.4 % 10.0-14.5 Automated blood platelet count (count/volume) 229 10*3/uL 130-400 Automated blood platelet mean volume measurement 9.6 [foz_us] 7.4-10.4 Automated blood neutrophils/100 leukocytes 54 % 42-75 Automated blood lymphocytes/100 leukocytes 34 % 12-44 Blood monocytes/100 leukocytes 9 % 0-12 Automated blood eosinophils/100 leukocytes 2 % 0-10 Automated blood basophils/100 leukocytes 0 % 0-10 Blood neutrophils automated count (number/volume) 3.6 10*3 1.8-7.8 Blood lymphocytes automated count (number/volume) 2.3 10*3 1.0-4.0 Blood monocytes automated count (number/volume) 0.6 10*3 0.0-1.0 Automated eosinophil count 0.2 10*3/uL 0.0-0.3 Automated blood basophil count (count/volume) 0.0 10*3/uL 0.0-0.1 Comprehensive metabolic panel - 10/05/17 23:07 Serum or plasma sodium measurement (moles/volume) 141 mmol/L 135-145 Serum or plasma potassium measurement (moles/volume) 4.3 mmol/L 3.6-5.0 Serum or plasma chloride measurement (moles/volume) 109 mmol/L 98-107 Carbon dioxide 23 mmol/L 21-32 Serum or plasma anion gap determination (moles/volume) 9 mmol/L 5-14 Serum or plasma urea nitrogen measurement (mass/volume) 16 mg/dL 7-18 Serum or plasma creatinine measurement (mass/volume) 0.88 mg/dL 0.60-1.30 Serum or plasma urea nitrogen/creatinine mass ratio 18 NRG Serum or plasma creatinine measurement with calculation of estimated glomerular filtration rate > NRG Serum or plasma glucose measurement (mass/volume) 88 mg/dL 70-105 Serum or plasma calcium measurement (mass/volume) 9.3 mg/dL 8.5-10.1 Serum or plasma total bilirubin measurement (mass/volume) 0.4 mg/dL 0.1-1.0 Serum or plasma alkaline phosphatase measurement (enzymatic activity/volume) 47 U/L 40-136 Serum or plasma aspartate aminotransferase measurement (enzymatic activity/ volume) 18 U/L 5-34 Serum or plasma alanine aminotransferase measurement (enzymatic activity/volume ) 11 U/L 0-55 Serum or plasma protein measurement (mass/volume) 7.4 g/dL 6.4-8.2 Serum or plasma albumin measurement (mass/volume) 3.9 g/dL 3.2-4.5 Lipase - 10/05/17 23:07 Lipase 46 U/L 8-78 Encounters ACCT No. Visit Date/Time Discharge Status Pt. Type Provider Facility Loc./Unit Complaint [id number] 07/17/2014 09:33:00 07/17/2014 23:59:59 CLS Outpatient VERONIQUE VELA APRN [id number] 07/09/2014 15:13:00 07/09/2014 23:59:59 CLS Outpatient VERONIQUE VELA APRN [id number] 05/01/2014 09:18:00 05/01/2014 23:59:59 CLS Outpatient VERONIQUE VELA APRN [id number] 03/04/2014 13:51:00 03/04/2014 23:59:59 CLS Outpatient VERONIQUE VELA APRN [id number] 02/03/2014 10:43:00 02/03/2014 23:59:59 CLS Outpatient ROLY POPE DO [id number] 10/22/2013 10:48:00 10/22/2013 23:59:59 CLS Outpatient BERTHA RIOS APRN [id number] 09/19/2013 11:44:00 09/19/2013 23:59:59 CLS Outpatient ROLY POPE DO [id number] 04/22/2013 08:47:00 04/22/2013 23:59:59 CLS Outpatient VERONIQUE VELA APRN [id number] 06/20/2012 08:41:00 06/20/2012 23:59:59 CLS Outpatient ADELINE BASSETT APRN [id number] 04/19/2010 00:00:00 04/19/2010 23:59:59 CLS Outpatient [id number] 11/15/2012 14:41:00 Document Registration [id number] 08/24/2012 10:24:00 Document Registration [id number] 09/08/2017 00:52:00 09/08/2017 02:50:00 DIS Outpatient Gunner Cuevas [facility] ER [id number] 05/20/2017 20:19:00 05/20/2017 21:08:00 DIS Outpatient NENONINO [facility] ER [id number] 04/08/2016 10:52:00 04/08/2016 12:21:00 DIS Outpatient Aleksandr Bojorquez [facility] [place] [id number] 04/08/2016 11:31:22 Document Registration [id number] 07/04/2016 14:08:00 Document Registration [id number] 04/08/2016 18:06:00 Document Registration [id number] 01/03/2018 13:30:00 01/03/2018 23:59:59 CLS Preadmit SARAHI ERVIN APRN [facility] REHAB L SHOULDER PAIN [id number] 10/05/2017 21:38:00 10/06/2017 01:35:00 DIS Emergency NINO WINKLER MD [facility] ER L SIDE ABD PAIN GOING TO L SHOULDER/BACK [id number] 07/26/2017 11:13:00 07/26/2017 14:40:00 DIS Outpatient WATSON PAINTER MD [facility] ENDO SCREENING [id number] 07/24/2017 05:35:00 07/24/2017 13:32:00 DIS Outpatient WATSON PAINTER MD [facility] PREOP COLONOSCOPY [id number] 06/20/2017 00:12:00 06/20/2017 01:25:00 DIS Emergency JEREMY MAC MD [facility] ER MIDDLE LOWER BACK LOCKING UP,ABD PAIN PELVIC P [id number] 11/17/2016 11:45:00 11/18/2016 12:50:00 DIS Inpatient WATSON PAINTER MD [facility] 4TH MORBID OBESITY [id number] 11/10/2016 11:38:00 11/10/2016 23:59:59 CLS Outpatient WATSON PAINTER MD [facility] PREOP MORBID OBESITY [id number] 09/07/2016 09:49:00 09/07/2016 23:59:59 CLS Outpatient LYSSA MILES Madina SLABBER LIGHT [facility] RAD REFLUX [id number] 07/30/2016 18:13:00 07/30/2016 22:03:00 DIS Emergency NINO WINKLER MD [facility] ER POST OP/SOA [id number] 07/28/2016 09:16:00 07/28/2016 16:00:00 DIS Outpatient HERSON VENTURA DO [facility] SDC LEFT ABDOMINAL MASS [id number] 07/24/2016 13:54:00 07/24/2016 18:01:00 DIS Emergency NINO WINKLER MD [facility] ER GALLBLADDER/BACK PAIN [id number] 07/22/2016 08:52:00 07/22/2016 23:59:59 CLS Outpatient WATSON PAINTER MD [facility] CARD ABD PAIN [id number] 07/21/2016 13:36:00 07/21/2016 23:59:59 CLS Outpatient WATSON PAINTER MD [facility] RAD LLQ PAIN [id number] 04/21/2016 11:45:00 04/21/2016 14:50:00 DIS Emergency JAELYN MORALES [place]AB[place]IGHT [facility] ER RIGHT LOWER BACK PAIN [id number] 03/08/2016 17:20:00 03/08/2016 20:33:00 DIS Emergency ADILIA RAHMAN [facility] ER SORE THROAT, CHILLS, BACK PAIN [id number] 11/23/2015 15:57:00 11/23/2015 23:59:59 CLS Outpatient SARAHI ERVIN [place]IGHT [facility] RAD PAIN IN LT KNEE [id number] 11/19/2015 13:24:00 11/19/2015 23:59:59 CLS Outpatient SARAHI ERVIN [place] [facility] RAD PAIN IN LT KNEE [id number] 09/10/2015 19:22:00 09/10/2015 22:20:00 DIS Emergency JUSTUS LIN DO [facility] ER RIGHT ARM PAIN;WEAKNESS; FEVER [id number] 05/22/2015 08:01:00 05/22/2015 23:59:59 CLS Outpatient SARAHI ERVIN [place] [facility] RAD LT KNEE INJURY [id number] 03/31/2015 08:56:00 03/31/2015 23:59:59 CLS Outpatient QAMAR GODOY [place]IGHT [facility] RAD SCREENING [id number] 03/13/2015 11:30:00 03/13/2015 23:59:59 CLS Outpatient SARAHI ERVIN [place] [facility] CARD RIGHT UPPER QUADRANT PAIN [id number] 03/04/2015 13:12:00 03/04/2015 23:59:59 CLS Outpatient SARAHI ERVIN [place]IGHT [facility] RAD RIGHT UPPER QUADRANT PAIN [id number] 03/02/2015 18:48:00 03/02/2015 22:51:00 DIS Emergency ADILIA RAHMAN [facility] ER ABD PAIN/VOMITING/ DIARRHEA [id number] 02/07/2015 09:15:00 02/07/2015 10:16:00 DIS Emergency YUMIKO MARTINEZ MD [facility] ER PAINFUL BREATHING/ SORE THROAT [id number] 11/24/2014 15:36:00 11/24/2014 19:12:00 DIS Emergency ADILIA RAHMAN [facility] ER [id number] 07/12/2014 15:25:00 07/12/2014 16:30:00 DIS Emergency JAELYN MORALES [place]AB[place]IGHT [facility] ER [id number] 09/12/2013 11:25:00 09/12/2013 23:59:59 CLS Outpatient [id number] 08/26/2013 14:16:00 08/26/2013 16:45:00 DIS Emergency JAELYN MORALES [place] [facility] ER [id number] 08/05/2013 10:42:00 08/05/2013 12:25:00 DIS Emergency JAELYN MORALES SLABBER [place]IGHT [facility] ER [id number] 11/10/2012 13:43:00 11/10/2012 23:59:59 CLS Outpatient [id number] 07/12/2014 15:26:00 Document Registration [id number] 03/07/2010 15:59:00 Document Registration [id number] 09/18/2009 08:18:00 Document Registration [id number] 07/24/2009 17:49:00 Document Registration [id number] 09/22/2017 16:40:00 09/22/2017 23:59:59 [facility]
[2018-02-19] MEDS ORDERED: LACTATED RINGERS 1,000 ML IV SCH (19:00)
[2018-02-19] MEDS ORDERED: ONDANSETRON 4 MG/2 ML (SDV) Z0FRAN IVP ONE (19:00)
[2018-02-19 19:13] LABS: BILIRUBIN,URINE NEGATIVE (NEGATIVE); CLARITY,URINE CLEAR; COLOR,URINE YELLOW; GLUCOSE, URINE (UA) NEGATIVE (NEGATIVE); KETONES,URINE NEGATIVE (NEGATIVE); LEUKOCYTE ESTERASE ,URINE 1+ (NEGATIVE); NITRITE,URINE POSITIVE (NEGATIVE); PH,URINE 5 (5-9); PROTEIN,URINE NEGATIVE (NEGATIVE); UROBILINOGEN,URINE NORMAL (NORMAL)
[2018-02-19 19:14] LABS: BASOPHILS % (AUTO) 1 % (0-10); EOSINOPHILS # (AUTO) 0.3 10^3/uL (0.0-0.3); EOSINOPHILS % (AUTO) 4 % (0-10); HEMATOCRIT 40 % (35-52); HEMOGLOBIN 13.7 G/DL (11.5-16.0); LYMPHOCYTES # (AUTO) 1.9 X 10^3 (1.0-4.0); LYMPHOCYTES % (AUTO) 31 % (12-44); MEAN CORPUSCULAR HEMOGLOBIN 29 PG (25-34); MEAN CORPUSCULAR HGB CONC 34 G/DL (32-36); MEAN CORPUSCULAR VOLUME 85 FL (80-99); MONOCYTES # (AUTO) 0.4 X 10^3 (0.0-1.0); MONOCYTES % (AUTO) 7 % (0-12); NEUTROPHILS # (AUTO) 3.6 X 10^3 (1.8-7.8); NEUTROPHILS % (AUTO) 58 % (42-75); PLATELET COUNT 309 10^3/uL (130-400); RED BLOOD COUNT 4.77 10^6/uL (4.35-5.85); RED CELL DISTRIBUTION WIDTH 14.7 % (10.0-14.5); WHITE BLOOD COUNT 6.2 10^3/uL (4.3-11.0)
[2018-02-19 19:23] LABS: BACTERIA,URINE LARGE /HPF
--- NOTE | 2018-02-19 19:25 | ED Abdominal Pain ---
General Chief Complaint: Abdominal/GI Problems Stated Complaint: POST TUMMY TUCK/ABD PAIN/VOMITING Nursing Triage Note: PT STATES SHE HAD A TUMMY TUCK PROCEDURE THE January, TODAY BEGAN TO DEVELOPE NAUSEA, VOMITING AND INTERMITTENT ABDOMINAL PAIN. PT VERBALIZED SOB WITH EXERTION. Sepsis Screen: No Definite Risk Source of Information: Patient Exam Limitations: No Limitations History of Present Illness Date Seen by Provider: Feb 19, 2018 Time Seen by Provider: 19:23 Initial Comments To ER by private vehicle with reports of epigastric abdominal cramping followed by nausea and vomiting intermittently. She had a tummy tuck on January 31 at [facility]. No diarrhea, bowel movements have been normal Timing/Duration: 12-24 Hours, 1-2 Days, Intermittent Severity/Quality: Moderate, Cramping Location: Epigastric Radiation: No Radiation Activities at Onset: None Associated Symptoms: Nausea/Vomiting Allergies and Home Medications Allergies Coded Allergies: No Known Drug Allergies (Unverified , 11/10/16) Home Medications Ciprofloxacin HCl 500 Mg Tablet, 500 MG PO BID Prescribed by: NINO SUMNER on 10/18/17 1424 Famotidine 20 Mg Tablet, 20 MG PO BID Prescribed by: NINO SUMNER on 10/06/17 0117 Omeprazole 20 Mg Tablet.dr, 20 MG PO DAILY Prescribed by: NINO SUMNER on 10/06/17 011 Patient Home Medication List Home Medication List Reviewed: Yes Review of Systems Review of Systems Constitutional: see HPI EENTM: No Symptoms Reported Respiratory: No Symptoms Reported Cardiovascular: No Symptoms Reported Gastrointestinal: See HPI, Abdominal Pain, Nausea, Vomiting Genitourinary: No Symptoms Reported Musculoskeletal: no symptoms reported Skin: no symptoms reported Psychiatric/Neurological: No Symptoms Reported Endocrine: No Symptoms Reported Past Zqcaahv-Vfqvhm-Chvwnq Hx Patient Social History Alcohol Use: Denies Use Number of Drinks Today: AA Alcohol Beverage of Choice: Beer Recreational Drug Use: No Smoking Status: Never a Smoker 2nd Hand Smoke Exposure: No Recent Foreign Travel: No Contact w/Someone Who Travel: No Recent Infectious Disease Expo: No Recent Hopitalizations: No Immunizations Up To Date Tetanus Booster (TDap): Unknown Date of Influenza Vaccine: Jan 25, 2015 Seasonal Allergies Seasonal Allergies: No Past Medical History Surgeries: Yes (LEFT KNEE X2 SCOPE, RIGHT KNEE SCOPE, c/s x4, gastric sleeve, TUMMY TUCK) Appendectomy, Section, Gallbladder, Hysterectomy, Oophorectomy, Orthopedic, Tubal Ligation Respiratory: No Currently Using CPAP: No Currently Using BIPAP: No Cardiac: No High Cholesterol Neurological: No : No Reproductive Disorders: No Female Reproductive Disorders: Denies VP DATA 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 Sexually Transmitted Disease: No HIV/AIDS: No Genitourinary: Yes Kidney Infection, Bladder Infection, Kidney Stones, UTI-Chronic Gastrointestinal: Yes Chronic Diarrhea, Irritable Bowel Musculoskeletal: No Endocrine: No HEENT: No Loss of Vision: Bilateral Hearing Impairment: Denies Cancer: No Psychosocial: Yes Anxiety Integumentary: No Blood Disorders: No Adverse Reaction/Blood Tranf: No Family Medical History No Pertinent Family Hx Physical Exam Vital Signs Vital Signs - First Documented 02/19/18 18:15 Temp 97.9 Pulse 76 Resp 22 B/P (MAP) 116/77 (90) Pulse Ox 98 O2 Delivery Room Air Capillary Refill : Less Than 3 Seconds Height/Weight/BMI Height: 5'2.00" Weight: 160lbs. 0oz. 72.297496mf; 28.7 BMI Method:Stated General Appearance: WD/WN, no apparent distress HEENT: PERRL/EOMI, normal ENT inspection Respiratory: no respiratory distress, no accessory muscle use Cardiovascular: regular rate, rhythm, no murmur Gastrointestinal: normal bowel sounds, non tender, soft, other (lower abdominal incision is clean dry and intact without erythema or drainage) Extremities: normal range of motion, non-tender 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: alert, normal mood/affect, oriented x 3 Skin: normal color, warm/dry Progress/Results/Core Measures Results/Orders Lab Results Laboratory Tests Test 02/19/18 18:57 02/19/18 19:00 Range/Units Urine Color YELLOW Urine Clarity CLEAR Urine pH 5 5-9 Urine Specific [place] 1.025 H 1.016-1.022 Urine Protein NEGATIVE NEGATIVE Urine Glucose (UA) NEGATIVE NEGATIVE Urine Ketones NEGATIVE NEGATIVE Urine Nitrite POSITIVE H NEGATIVE Urine Bilirubin NEGATIVE NEGATIVE Urine Urobilinogen NORMAL NORMAL MG/DL Urine Leukocyte Esterase 1+ H NEGATIVE Urine RBC (Auto) NEGATIVE NEGATIVE Urine RBC NONE /HPF Urine WBC 2-5 /HPF Urine Squamous Epithelial Cells 10-25 H /HPF Urine Crystals NONE /LPF Urine Bacteria LARGE H /HPF Urine Casts NONE /LPF Urine Mucus MODERATE H /LPF Urine Culture Indicated NO White Blood Count 6.2 4.3-11.0 10^3/uL Red Blood Count 4.77 4.35-5.85 10^6/uL Hemoglobin 13.7 11.5-16.0 G/DL Hematocrit 40 35-52 % Mean Corpuscular Volume 85 80-99 FL Mean Corpuscular Hemoglobin 29 25-34 PG Mean Corpuscular Hemoglobin Concent 34 32-36 G/DL Red Cell Distribution Width 14.7 H 10.0-14.5 % Platelet Count 309 130-400 10^3/uL Mean Platelet Volume 9.0 7.4-10.4 FL Neutrophils (%) (Auto) 58 42-75 % Lymphocytes (%) (Auto) 31 12-44 % Monocytes (%) (Auto) 7 0-12 % Eosinophils (%) (Auto) 4 0-10 % Basophils (%) (Auto) 1 0-10 % Neutrophils # (Auto) 3.6 1.8-7.8 X 10^3 Lymphocytes # (Auto) 1.9 1.0-4.0 X 10^3 Monocytes # (Auto) 0.4 0.0-1.0 X 10^3 Eosinophils # (Auto) 0.3 0.0-0.3 10^3/uL Basophils # (Auto) 0.0 0.0-0.1 10^3/uL My Orders Orders - JAELYN MORALES APRN Cbc With Automated Diff (02/19/18 19:00) Comprehensive Metabolic Panel (02/19/18 19:00) Lipase (02/19/18 19:00) Iv Heplock-Insert (Order) (02/19/18 19:00) Ua Culture If Indicated (02/19/18 19:00) Urine Bedside (02/19/18 19:00) Lactated Ringers (Lr 1000 Ml Iv Solution (02/19/18 19:00) Ondansetron Injection (Zofran Injectio (02/19/18 19:00) Ceftriaxone For Iv Use (Rocephin For I (02/19/18 19:30) Vital Signs/I&O 02/19/18 18:15 Temp 97.9 Pulse 76 Resp 22 B/P (MAP) 116/77 (90) Pulse Ox 98 O2 Delivery Room Air Blood Pressure Mean: 90 Urine -Bedside: Negative Departure Impression Primary Impression: Nausea and vomiting Qualified Codes: R11.2 - Nausea with vomiting, unspecified Additional Impression: Urinary tract infection Qualified Codes: N30.00 - Acute cystitis without hematuria Disposition: HOME, SELF-CARE Condition: Stable Departure-Patient Inst. Decision time for Depature: 19:31 Referrals: SARAHI ERVIN APRN (PCP) Primary Care Physician [facility] (Family) Primary Care Physician Patient Instructions: Urinary Tract Infection, Adult (DC) Add. Discharge Instructions: Antibiotics as directed. Nausea medication as needed. Follow-up with her doctor next week. All discharge instructions reviewed with patient and/or family. Voiced understanding. Scripts Ondansetron (Ondansetron Odt) 4 Mg Tab.rapdis 4 MG PO Q4H PRN for NAUSEA/VOMITING, #10 TAB Prov: JAELYN MORALES APRN 02/19/18 Cefuroxime Axetil (Cefuroxime) 250 Mg Tablet 250 MG PO BID, #10 TAB Prov: JAELYN MORALES APRN 02/19/18 JAELYN MORALES APRN Feb 19, 2018 19:25
[2018-02-19] MEDS ORDERED: cefTRIAXone FOR IV USE 1,000 MG in NS (IVPB) 50 ML IV ONE (19:30)
[2018-02-19 19:31] LABS: ALANINE AMINOTRANSFERASE 22 U/L (0-55); ALBUMIN 4.3 GM/DL (3.2-4.5); ALKALINE PHOSPHATASE 60 U/L (40-136); BILIRUBIN,TOTAL 0.7 MG/DL (0.1-1.0); BUN/CREATININE RATIO 16; CALCIUM 9.9 MG/DL (8.5-10.1); CARBON DIOXIDE 23 MMOL/L (21-32); CHLORIDE 106 MMOL/L (98-107); CREATININE SERUM 0.73 MG/DL (0.60-1.30); GFR ESTIMATED > 60; GLUCOSE 93 MG/DL (70-105); LIPASE 46 U/L (8-78); POTASSIUM 3.8 MMOL/L (3.6-5.0); SODIUM 139 MMOL/L (135-145); TOTAL PROTEIN 8.3 GM/DL (6.4-8.2)
[2018-02-19] MEDS ORDERED: ONDA4TAB11 PO (19:32)
[2018-02-19] MEDS ORDERED: CEFU250T80 PO (19:32)
[2018-02-19 21:09] VITALS: BP 106/57
== END 2018-02-19 21:09 | disposition home or self-care (01) ==
LOC: EDUNIT# 17:37 → ER 17:39
DX: N39.0 Urinary tract infection, site not specified (principal); E78.00 Pure hypercholesterolemia, unspecified; F41.9 Anxiety disorder, unspecified; Z87.19 Personal history of other diseases of the digestive system; Z87.440 Personal history of urinary (tract) infections; Z90.710 Acquired absence of both cervix and uterus; Z90.49 Acquired absence of other specified parts of digestive tract; Z98.890 Other specified postprocedural states; Z98.84 Bariatric surgery status; Z98.51 Tubal ligation status
CPT/HCPCS: 36415; 80053; 81000; 83690; 84703; 85025; 96361; 96365; 96375

== ENCOUNTER 2018-06-07 19:33 | Emergency (ER) | payer OTHER ==
[~2018-06-07] VITALS: Ht 157.5 cm; Wt 75.3 kg
[~2018-06-07 19:33] MED LIST changes: +CEFU250T80 PO; +ONDA4TAB11 PO
--- OUTSIDE RECORDS SUMMARY | 2018-06-07 19:53 | XMS REPORT | Continuity of Care Document ---
Author Author [facility] Address Unknown Phone Unavailable Allergies Active Description Code Type Severity Reaction Onset Reported/Identified Relationship to Patient Clinical Status Yes NO KNOWN DRUG ALLERGIES NO KNOWN DRUG ALLERG UNKNOWN Yes NO KNOWN DRUG ALLERGIES UNKNOWN NO KNOWN DRUG ALLERG Yes NKANo Known Allergies NKA Miscellaneous Allergy Mild N/A 07/24/2016 Yes No Known Drug Allergies [id number] Drug Allergy Unknown N/A 11/10/2016 Medications Medication [...] S 716.90 ARTHRITIS/ ARTHROPATHY, UNSPECIFIED 08/10/2009 GABRIEL RETAIL SALES VITAMIN CONSULTANT, BERTHA S 724.5 BACKACHE UNSPECIFIED 08/10/2009 POPE DO, ROLY K 716.90 ARTHRITIS/ ARTHROPATHY, UNSPECIFIED 08/10/2009 POPE DO, ROLY K 724.5 BACKACHE UNSPECIFIED 08/10/2009 MIRIAN RETAIL SALES VITAMIN CONSULTANT, VERONIQUE R 716.90 ARTHRITIS/ ARTHROPATHY, UNSPECIFIED 08/10/2009 MIRIAN RETAIL SALES VITAMIN CONSULTANT, VERONIQUE R 724.5 BACKACHE UNSPECIFIED 08/10/2009 MIRIAN RETAIL SALES VITAMIN CONSULTANT, VERONIQUE R 716.90 ARTHRITIS/ ARTHROPATHY, UNSPECIFIED 08/10/2009 MIRIAN RETAIL SALES VITAMIN CONSULTANT, VERONIQUE R 724.5 BACKACHE UNSPECIFIED 08/10/2009 MIRIAN RETAIL SALES VITAMIN CONSULTANT, VERONIQUE R 716.90 ARTHRITIS/ ARTHROPATHY, UNSPECIFIED 08/10/2009 MIRIAN RETAIL SALES VITAMIN CONSULTANT, VERONIQUE R 724.5 BACKACHE UNSPECIFIED 08/10/2009 MIRIAN RETAIL SALES VITAMIN CONSULTANT, VERONIQUE R 716.90 ARTHRITIS/ ARTHROPATHY, UNSPECIFIED 08/10/2009 MIRIAN RETAIL SALES VITAMIN CONSULTANT, VERONIQUE R 724.5 BACKACHE UNSPECIFIED 09/10/2009 717.7 [...] OR MENISCUS OF KNEE, CURRENT 09/10/2009 MIRIAN RETAIL SALES VITAMIN CONSULTANT, VERONIQUE R 717.7 CHONDROMALACIA OF PATELLA 09/10/2009 MIRIAN RETAIL SALES VITAMIN CONSULTANT, VERONIQUE R 836.0 TEAR OF MEDIAL CARTILAGE [...] OR MENISCUS OF KNEE, CURRENT 09/10/2009 MIRIAN RETAIL SALES VITAMIN CONSULTANT, VERONIQUE R 717.7 CHONDROMALACIA OF [place]LLA 09/10/2009 MIRIAN RETAIL SALES VITAMIN CONSULTANT, VERONIQUE R 836.0 TEAR OF MEDIAL CARTILAGE OR MENISCUS OF KNEE, CURRENT 09/10/2009 MIRIAN RETAIL SALES VITAMIN CONSULTANT, VERONIQUE R 717.7 CHONDROMALACIA OF [place]LLA 09/10/2009 MIRIAN RETAIL SALES VITAMIN CONSULTANT, VERONIQUE R 836.0 TEAR OF MEDIAL CARTILAGE OR MENISCUS OF KNEE, CURRENT 09/10/2009 MIRIAN RETAIL SALES VITAMIN CONSULTANT, VERONIQUE R 717.7 CHONDROMALACIA OF [place]LLA 09/10/2009 MIRIAN RETAIL SALES VITAMIN CONSULTANT, VERONIQUE R 836.0 TEAR OF MEDIAL CARTILAGE OR MENISCUS OF KNEE, CURRENT 09/10/2009 MIRIAN RETAIL SALES VITAMIN CONSULTANT, VERONIQUE R 717.7 CHONDROMALACIA OF PATELLA 09/10/2009 MIRIAN RETAIL SALES VITAMIN CONSULTANT, VERONIQUE R 836.0 TEAR OF MEDIAL CARTILAGE [...] IN JOINT INVOLVING LOWER LEG 06/20/2012 MIRIAN RETAIL SALES VITAMIN CONSULTANT, VERONIQUE R 719.46 PAIN IN JOINT INVOLVING LOWER LEG 06/20/2012 MIRIAN NEALN, VERONIQUE R 719.46 PAIN IN JOINT INVOLVING LOWER LEG 06/20/2012 MIRIAN NEALN, VERONIQUE R 719.46 PAIN IN JOINT INVOLVING LOWER LEG 08/24/2012 726.73 HEEL SPUR 08/24/2012 726.73 HEEL SPUR 08/24/2012 MIRIAN RETAIL SALES VITAMIN CONSULTANT, VERONIQUE R 726.73 HEEL SPUR 08/24/2012 ROLY POPE DO K 726.73 HEEL SPUR 08/24/2012 GABRIEL MEEHAN BERTHA S 726.73 HEEL SPUR 08/24/2012 NOEL POPE DOA K 726.73 HEEL SPUR 08/24/2012 MIRIAN RETAIL SALES VITAMIN CONSULTANT, VERONIQUE R 726.73 HEEL SPUR 08/24/2012 MIRIAN RETAIL SALES VITAMIN CONSULTANT, VERONIQUE R 726.73 HEEL SPUR 08/24/2012 MIRIAN RETAIL SALES VITAMIN CONSULTANT, VERONIQUE R 726.73 HEEL SPUR 08/24/2012 MIRIAN RETAIL SALES VITAMIN CONSULTANT, VERONIQUE R 726.73 HEEL SPUR 04/19/2013 MIRIAN [...] MORALES APRN Ot 729.5 08/26/2013 JAELYN MORALES RETAIL SALES VITAMIN CONSULTANT Ot 599.0 08/26/2013 JAELYN MORALES RETAIL SALES VITAMIN CONSULTANT Ot 787.02 10/22/2013 BERTHA RIOS APRN S 729.4 PLANTAR FASCIITIS 10/22/2013 TOSHIA LEON ROLY K 729.4 PLANTAR FASCIITIS 10/22/2013 MIRIAN RETAIL SALES VITAMIN CONSULTANT, VERONIQUE R 729.4 PLANTAR FASCIITIS 10/22/2013 MIRIAN NEALN, VERONIQUE R 729.4 PLANTAR FASCIITIS 10/22/2013 MIRIAN RETAIL SALES VITAMIN CONSULTANT, VERONIQUE R 729.4 PLANTAR FASCIITIS 10/22/2013 MIRIAN RETAIL SALES VITAMIN CONSULTANT, VERONIQUE R 729.4 PLANTAR FASCIITIS 02/03/2014 POPE [...] MEEHAN VERONIQUE R 786.2 COUGH 03/04/2014 MIRIAN RETAIL SALES VITAMIN CONSULTANT, VERONIQUE R 780.79 OTHER MALAISE AND FATIGUE 03/04/2014 MIRIAN RETAIL SALES VITAMIN CONSULTANT, VERONIQUE R 786.2 COUGH 03/04/2014 MIRIAN RETAIL SALES VITAMIN CONSULTANT, VERONIQUE R 780.79 OTHER MALAISE AND FATIGUE 03/04/2014 MIRIAN RETAIL SALES VITAMIN CONSULTANT, VERONIQUE R 786.2 COUGH 03/04/2014 MIRIAN RETAIL SALES VITAMIN CONSULTANT, VERONIQUE R 780.79 OTHER MALAISE AND FATIGUE 03/04/2014 MIRIAN RETAIL SALES VITAMIN CONSULTANT, VERONIQUE R 786.2 COUGH 05/01/2014 MIRIAN RETAIL SALES VITAMIN CONSULTANT, VERONIQUE R 723.1 CERVICALGIA 05/01/2014 MIRIAN RETAIL SALES VITAMIN CONSULTANT, VERONIQUE R 723.1 CERVICALGIA 05/01/2014 MIRIAN RETAIL SALES VITAMIN CONSULTANT, VERONIQUE R 723.1 CERVICALGIA 07/12/2014 Ot 717.3 07/12/2014 Ot 719.06 07/12/2014 JAELYN MORALES RETAIL SALES VITAMIN CONSULTANT Ot 724.2 07/12/2014 JAELYN MORALES RETAIL SALES VITAMIN CONSULTANT Ot 724.4 07/17/2014 MIRIAN RETAIL SALES VITAMIN CONSULTANT, VERONIQUE R 724.2 LUMBAGO/ LOW BACK PAIN 07/17/2014 MIRIAN RETAIL SALES VITAMIN CONSULTANT, VERONIQUE R 729.1 MYALGIA AND MYOSITIS UNSPECIFIED [...] BOTH CERVIX AND UTER 03/31/2015 SARAHI ERVIN RETAIL SALES VITAMIN CONSULTANT Ot R10.11 05/20/2015 QAMAR GODOY RETAIL SALES VITAMIN CONSULTANT Ot N64.4 05/22/2015 SARAHI ERVIN RETAIL SALES VITAMIN CONSULTANT Ot R10.11 05/22/2015 QAMAR GODOY RETAIL SALES VITAMIN CONSULTANT Ot N64.4 06/01/2015 SARAHI ERVIN RETAIL SALES VITAMIN CONSULTANT Ot S89.92XA 06/01/2015 SARAHI ERVIN RETAIL SALES VITAMIN CONSULTANT Ot X58.XXXA 06/01/2015 SARAHI ERVIN RETAIL SALES VITAMIN CONSULTANT Ot Y99.8 09/10/2015 SARAHI ERVIN RETAIL SALES VITAMIN CONSULTANT Ot R10.11 RIGHT UPPER QUADRANT PAIN 09/10/2015 QAMAR GODOY RETAIL SALES VITAMIN CONSULTANT Ot N64.4 MASTODYNIA 09/10/2015 SARAHI ERVIN RETAIL SALES VITAMIN CONSULTANT Ot S89.92XA UNSPECIFIED INJURY OF LEFT LOWER LEG, IN 09/10/2015 SARAHI ERVIN RETAIL SALES VITAMIN CONSULTANT Ot X58.XXXA EXPOSURE TO OTHER SPECIFIED FACTORS, INI 09/10/2015 SARAHI ERVIN RETAIL SALES VITAMIN CONSULTANT Ot Y99.8 OTHER EXTERNAL CAUSE STATUS 09/10/2015 [...] PAIN IN RIGHT ARM 11/19/2015 SARAHI ERVIN RETAIL SALES VITAMIN CONSULTANT Ot R10.11 RIGHT UPPER QUADRANT PAIN 11/23/2015 SARAHI ERVIN RETAIL SALES VITAMIN CONSULTANT Ot M25.562 PAIN IN LEFT KNEE 11/23/2015 SARAHI ERVIN RETAIL SALES VITAMIN CONSULTANT Ot 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] 11/25/2015 SARAHI ERVIN RETAIL SALES VITAMIN CONSULTANT Ot M25.562 PAIN IN LEFT KNEE 11/29/2015 SARAHI ERVIN RETAIL SALES VITAMIN CONSULTANT Ot M25.562 PAIN IN LEFT KNEE 03/08/2016 SARAHI ERVIN RETAIL SALES VITAMIN CONSULTANT Ot R10.11 RIGHT UPPER QUADRANT PAIN 03/08/2016 SARAHI ERVIN RETAIL SALES VITAMIN CONSULTANT Ot M25.562 PAIN IN LEFT KNEE 03/08/2016 SARAHI ERVIN RETAIL SALES VITAMIN CONSULTANT Ot M25.562 PAIN IN LEFT KNEE 03/08/2016 SARAHI ERVIN RETAIL SALES VITAMIN CONSULTANT Ot 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] 03/08/2016 ADILIA RAHMAN Ot J02.9 ACUTE PHARYNGITIS, UNSPECIFIED 03/08/2016 ADILIA RAHMAN Ot J20.9 ACUTE BRONCHITIS, UNSPECIFIED 03/08/2016 ADILIA RAHMAN Ot R11.2 NAUSEA WITH VOMITING, UNSPECIFIED 03/08/2016 ADILIA RAHMAN Ot R19.7 DIARRHEA, UNSPECIFIED 03/08/2016 SARAHI ERVIN RETAIL SALES VITAMIN CONSULTANT Ot R10.11 RIGHT UPPER QUADRANT PAIN 03/08/2016 QAMAR GODOY RETAIL SALES VITAMIN CONSULTANT Ot N64.4 MASTODYNIA 03/08/2016 SARAHI ERVIN RETAIL SALES VITAMIN CONSULTANT Ot S89.92XA UNSPECIFIED INJURY OF LEFT LOWER LEG, IN 03/08/2016 SARAHI ERVIN RETAIL SALES VITAMIN CONSULTANT Ot X58.XXXA EXPOSURE TO OTHER SPECIFIED FACTORS, INI 03/08/2016 SARAHI ERVIN RETAIL SALES VITAMIN CONSULTANT Ot Y99.8 OTHER EXTERNAL CAUSE STATUS 03/09/2016 [...] WALL OF THORAX, INIT 04/21/2016 SARAHI ERVIN RETAIL SALES VITAMIN CONSULTANT Ot R10.11 RIGHT UPPER QUADRANT PAIN 04/21/2016 QAMAR GODOY RETAIL SALES VITAMIN CONSULTANT Ot N64.4 MASTODYNIA 04/21/2016 SARAHI ERVIN RETAIL SALES VITAMIN CONSULTANT Ot S89.92XA UNSPECIFIED INJURY OF LEFT LOWER LEG, IN 04/21/2016 SARAHI ERVIN RETAIL SALES VITAMIN CONSULTANT Ot X58.XXXA EXPOSURE TO OTHER SPECIFIED FACTORS, INI 04/21/2016 SARAHI ERVIN RETAIL SALES VITAMIN CONSULTANT Ot Y99.8 OTHER EXTERNAL CAUSE STATUS 04/21/2016 JAELYN MORALES APRN Ot E11.9 TYPE 2 DIABETES MELLITUS WITHOUT COMPLIC 04/21/2016 JAELYN MORALES APRN Ot M54.41 LUMBAGO WITH SCIATICA, RIGHT SIDE 04/21/2016 JAELYN MORALES APRN Ot M54.5 LOW BACK PAIN 04/22/2016 JAELYN MORALES APRN Ot E11.9 TYPE 2 DIABETES MELLITUS WITHOUT COMPLIC 04/22/2016 JAELYN MORALES RETAIL SALES VITAMIN CONSULTANT Ot M54.41 LUMBAGO WITH SCIATICA, RIGHT SIDE 04/22/2016 JAELYN MORALES APRN Ot M54.5 LOW BACK PAIN 04/27/2016 JAELYN MORALES APRN Ot E11.9 TYPE 2 DIABETES MELLITUS WITHOUT COMPLIC 04/27/2016 JAELYN MORALES APRN Ot M54.41 LUMBAGO WITH SCIATICA, RIGHT SIDE 04/27/2016 JAELYN MORALES RETAIL SALES VITAMIN CONSULTANT Ot M54.5 LOW BACK PAIN 04/29/2016 JAELYN MORALES RETAIL SALES VITAMIN CONSULTANT Ot E11.9 TYPE 2 DIABETES MELLITUS WITHOUT COMPLIC 04/29/2016 MORALES, PETER J RETAIL SALES VITAMIN CONSULTANT Ot M54.41 LUMBAGO WITH SCIATICA, RIGHT SIDE 04/29/2016 JAELYN MORALES RETAIL SALES VITAMIN CONSULTANT Ot M54.5 LOW BACK PAIN 07/21/2016 SARAHI ERVIN Anabel RETAIL SALES VITAMIN CONSULTANT Ot R10.11 RIGHT UPPER QUADRANT PAIN 07/21/2016 QAMAR GODOY RETAIL SALES VITAMIN CONSULTANT Ot N64.4 MASTODYNIA 07/21/2016 SARAHI ERVIN RETAIL SALES VITAMIN CONSULTANT Ot S89.92XA UNSPECIFIED INJURY OF LEFT LOWER LEG, IN 07/21/2016 SARAHI ERVIN Anabel RETAIL SALES VITAMIN CONSULTANT Ot X58.XXXA EXPOSURE TO OTHER SPECIFIED FACTORS, INI 07/21/2016 SARAHI ERVIN Anabel RETAIL SALES VITAMIN CONSULTANT Ot Y99.8 OTHER EXTERNAL CAUSE STATUS 07/24/2016 SARAHI ERVIN Anabel RETAIL SALES VITAMIN CONSULTANT Ot R10.11 RIGHT UPPER QUADRANT PAIN 07/24/2016 QAMAR GODOY RETAIL SALES VITAMIN CONSULTANT Ot N64.4 MASTODYNIA 07/24/2016 ERVIN SARAHI Anabel RETAIL SALES VITAMIN CONSULTANT Ot S89.92XA UNSPECIFIED INJURY OF LEFT LOWER LEG, IN 07/24/2016 ERVINSINANSARAHI Anabel RETAIL SALES VITAMIN CONSULTANT Ot X58.XXXA EXPOSURE TO OTHER SPECIFIED FACTORS, INI 07/24/2016 ERVINSARAHI Gaspar Anabel RETAIL SALES VITAMIN CONSULTANT Ot Y99.8 OTHER EXTERNAL CAUSE STATUS 07/24/2016 [...] 07/30/2016 NINO WINKLER MD Ot Z79.899 OTHER [facility] (CURRENT) DRUG THERAPY 07/30/2016 NINO WINKLER MD, [...] RIGHT UPPER QUADRANT PAIN 09/07/2016 QAMAR GODOY RETAIL SALES VITAMIN CONSULTANT Ot N64.4 MASTODYNIA 09/07/2016 SARAHI ERVIN RETAIL SALES VITAMIN CONSULTANT Ot S89.92XA UNSPECIFIED INJURY OF LEFT LOWER LEG, IN 09/07/2016 SARAHI ERVIN RETAIL SALES VITAMIN CONSULTANT Ot X58.XXXA EXPOSURE TO OTHER SPECIFIED FACTORS, INI 09/07/2016 SARAHI ERVIN RETAIL SALES VITAMIN CONSULTANT Ot Y99.8 OTHER EXTERNAL CAUSE STATUS 09/07/2016 WATSON PAINTER MD Ot R10.11 RIGHT UPPER QUADRANT PAIN 09/07/2016 WATSON PAINTER MD Ot R10.32 LEFT LOWER QUADRANT PAIN 09/07/2016 WATSON PAINTER MD Ot R10.31 RIGHT LOWER QUADRANT PAIN 09/07/2016 WATSON PAINTER MD Ot R10.32 LEFT LOWER QUADRANT PAIN 09/21/2016 LYSSA MILES RETAIL SALES VITAMIN CONSULTANT Ot K21.9 GASTRO-ESOPHAGEAL REFLUX DISEASE WITHOUT 11/17/2016 SARAHI ERVIN RETAIL SALES VITAMIN CONSULTANT Ot R10.11 RIGHT UPPER QUADRANT PAIN 11/17/2016 QAMAR GODOY RETAIL SALES VITAMIN CONSULTANT Ot N64.4 MASTODYNIA 11/17/2016 SARAHI ERVIN RETAIL SALES VITAMIN CONSULTANT Ot S89.92XA UNSPECIFIED INJURY OF LEFT LOWER LEG, IN 11/17/2016 SARAHI ERVIN RETAIL SALES VITAMIN CONSULTANT Ot X58.XXXA EXPOSURE TO OTHER SPECIFIED FACTORS, INI 11/17/2016 SARAHI ERVIN RETAIL SALES VITAMIN CONSULTANT Ot Y99.8 OTHER EXTERNAL CAUSE STATUS 11/17/2016 WATSON PAINTER MD Ot R10.11 RIGHT UPPER QUADRANT PAIN 11/17/2016 WATSON PAINTER MD Ot R10.32 LEFT LOWER QUADRANT PAIN 11/17/2016 WATSON PAINTER MD Ot R10.31 RIGHT LOWER QUADRANT PAIN 11/17/2016 WATSON PAINTER MD Ot R10.32 LEFT LOWER QUADRANT PAIN 11/17/2016 LYSSA MILES RETAIL SALES VITAMIN CONSULTANT Ot K21.9 GASTRO-ESOPHAGEAL REFLUX DISEASE WITHOUT 11/17/2016 [...] APRN Ot N64.4 MASTODYNIA 06/20/2017 SARAHI ERVIN RETAIL SALES VITAMIN CONSULTANT Ot S89.92XA UNSPECIFIED INJURY OF LEFT LOWER LEG, IN 06/20/2017 SARAHI ERVIN RETAIL SALES VITAMIN CONSULTANT Ot X58.XXXA EXPOSURE TO OTHER SPECIFIED FACTORS, INI 06/20/2017 SARAHI ERVIN RETAIL SALES VITAMIN CONSULTANT Ot Y99.8 OTHER EXTERNAL CAUSE STATUS 06/20/2017 WATSON PAINTER MD Ot R10.11 RIGHT UPPER QUADRANT PAIN 06/20/2017 WATSON PAINTER MD Ot R10.32 LEFT LOWER QUADRANT PAIN 06/20/2017 WATSON PAINTER MD Ot R10.31 RIGHT LOWER QUADRANT PAIN 06/20/2017 WATSON PAINTER MD Ot R10.32 LEFT LOWER QUADRANT PAIN 06/20/2017 LYSSA MILES RETAIL SALES VITAMIN CONSULTANT Ot K21.9 GASTRO-ESOPHAGEAL REFLUX DISEASE WITHOUT 06/20/2017 [...] TRACT INFECTION, SITE NOT SPECIF 06/22/2017 JEREMY AMC MD Ot Z87.19 PERSONAL HISTORY OF OTHER [...] OF MALIGNANT NEOPLASM OF 07/26/2017 SARAHI ERVIN RETAIL SALES VITAMIN CONSULTANT Ot R10.11 RIGHT UPPER QUADRANT PAIN 07/26/2017 QAMAR GODOY RETAIL SALES VITAMIN CONSULTANT Ot N64.4 MASTODYNIA 07/26/2017 SARAHI ERVIN RETAIL SALES VITAMIN CONSULTANT Ot S89.92XA UNSPECIFIED INJURY OF LEFT LOWER LEG, IN 07/26/2017 SARAHI ERVIN RETAIL SALES VITAMIN CONSULTANT Ot X58.XXXA EXPOSURE TO OTHER SPECIFIED FACTORS, INI 07/26/2017 SARAHI ERVIN RETAIL SALES VITAMIN CONSULTANT Ot Y99.8 OTHER EXTERNAL CAUSE STATUS 07/26/2017 WATSON PAINTER MD Ot R10.11 RIGHT UPPER QUADRANT PAIN 07/26/2017 WATSON PAINTER MD, Ot R10.32 LEFT LOWER QUADRANT PAIN 07/26/2017 WATSON PAINTER MD Ot R10.31 RIGHT LOWER QUADRANT PAIN 07/26/2017 WATSON PAINTER MD, Ot R10.32 LEFT LOWER QUADRANT PAIN 07/26/2017 LYSSA MILES RETAIL SALES VITAMIN CONSULTANT Ot K21.9 GASTRO-ESOPHAGEAL REFLUX DISEASE WITHOUT 07/26/2017 [...] FOREIGN BODY OF VAGINA AND VULVA 09/08/2017 Gunnre Cuevas W 599.0 URINARY TRACT INFECTION, SITE [...] MD Ot R11.0 NAUSEA 10/06/2017 NINO WINKLER MD Ot Z87.19 PERSONAL HISTORY OF OTHER DISEASES OF 10/06/2017 NINO WINKLER MD Ot Z87.59 PERSONAL HISTORY OF COMP OF PREG, CHLDBR 10/06/2017 NINO WINKLER MD Ot Z90.710 ACQUIRED ABSENCE OF BOTH CERVIX AND UTER 10/06/2017 NINO WINKLER MD Ot Z90.89 ACQUIRED ABSENCE OF OTHER ORGANS 10/06/2017 NINO WINKLER MD Ot Z98.51 TUBAL LIGATION STATUS 10/06/2017 NINO WINKLER MD Ot Z98.84 BARIATRIC SURGERY STATUS 02/21/2018 JAELYN MORALES APRN Ot E78.00 PURE HYPERCHOLESTEROLEMIA, UNSPECIFIED 02/21/2018 JAELYN MORALES APRN Ot F41.9 ANXIETY DISORDER, UNSPECIFIED 02/21/2018 JAELYN MORALES APRN Ot N39.0 URINARY TRACT INFECTION, SITE NOT SPECIF 02/21/2018 JAELYN MORALES APRN Ot R10.13 EPIGASTRIC PAIN 02/21/2018 JAELYN MORALES APRN Ot Z87.19 PERSONAL HISTORY OF OTHER DISEASES OF TH 02/21/2018 JAELYN MORALES APRN Ot Z87.440 PERSONAL HISTORY OF URINARY (TRACT) INFE 02/21/2018 JAELYN MORALES APRN Ot Z90.49 ACQUIRED ABSENCE OF OTHER SPECIFIED PART 02/21/2018 JAELYN MORALES APRN Ot Z90.710 ACQUIRED ABSENCE OF BOTH CERVIX AND UTER 02/21/2018 JAELYN MORALES APRN Ot Z98.51 TUBAL LIGATION STATUS 02/21/2018 JAELYN MORALES APRN Ot Z98.84 BARIATRIC SURGERY STATUS 02/21/2018 JAELYN MORALES APRN Ot Z98.890 OTHER SPECIFIED POSTPROCEDURAL STATES Procedures Code [place] [address] XRAY KNEE RIGHT 1 OR 2 VIEWS 06/20/2012 ORTHO SONIA HOWE 06/20/2012 77858 XRAY FOOT LEFT 2 VIEWS 08/24/2012 ORTHOPEDI SONIA HOWE 08/24/2012 97359 JOINT INJECTION- INTERMEDIATE JOINT 11/15/2012 J1040 DEPO MEDROL 80 MG INJ 11/15/2012 09002 ROUTINE VENIPUNCTURE 04/22/2013 15658 CBC 04/22/2013 [id number] GFR CALC (RESULT ONLY) 04/22/2013 06884 CMP 04/22/2013 40652 LIPID PANEL 04/22/2013 09898 TSH 04/22/2013 54494 JOINT INJECTION - SMALL JOINT 09/19/2013 J1030 DEPO MEDROL 40 MG INJ 09/19/2013 75257 ROUTINE VENIPUNCTURE 03/04/2014 45183 MYCOPLASMA ANTIBODY 03/04/2014 41790 UA W/ CULTURE IF INDICATED 03/04/2014 78208 MONO TEST (IN-HOUSE) 03/04/2014 65290 CBC 03/04/2014 24368 XRAY CERVICAL SPINE, 2 OR 3 VIEWS 07/09/2014 84189 XRAY LUMBAR SPINE 2 OR 3 VIEWS 07/17/2014 [id number] EXCISION OF STOMACH, PERCUTANEOUS ENDOSC 11/17/2016 Results [...] Automated blood platelet mean volume measurement 9.8 [[facility]] 7.4-10.4 Automated blood neutrophils/100 leukocytes 63 % [...] FOR INFLUENZA A AND B ANTIGENS BY [facility] Comprehensive metabolic panel - 03/08/16 18:44 Serum [...] or plasma urea nitrogen/creatinine mass ratio 13 BANNER Serum or plasma creatinine measurement with calculation of estimated glomerular filtration rate > BANNER Serum or plasma glucose measurement (mass/volume) 88 [...] - 03/08/16 19:27 Urine color determination YELLOW NRG Urine clarity determination SLIGHTLY CLOUDY NRG [...] Vitamin D, 25-Hydroxy 15.0 ng/mL 30.0-100.0 Thyroid [place] Profile - 07/01/16 13:36 TSH 2.690 uIU/mL [...] ABO+Rh group AP NRG Transfusion band number [id number] NRG Blood group antibody screen NEGATIVE NRG [...] Drug Screen + ETOH - 05/20/17 20:41 Blow Torch Operator Farideh To Donor ID By Employer Representitive Ethanol, Urine <10.00 mg/dL 20.00-80.00 [facility] For Test [facility] Accident Temperature [...] 5-8.5 Urine-Protein 1+ Negative Urine-RBC 2-5/HPF Urine-Specific [place] >=1.030 1.000-1.030 Urine-WBC 10-20/HPF Urobilinogen 0.2 0.2-1.0 [...] culture - 10/05/17 22:57 Bacterial urine culture [id number] NRG COLONY COUNT >100,000/ML NRG FTX;REPORTABLE RML [...] - 10/05/17 23:07 Lipase 46 U/L 8-78 Complete urinalysis with reflex to culture - 02/19/18 18:57 Urine color determination YELLOW NRG Urine clarity [...] NEGATIVE Urine nitrite detection by test strip POSITIVE NEGATIVE Urine total bilirubin detection by test strip NEGATIVE NEGATIVE Urine urobilinogen measurement by automated test strip (mass/volume) NORMAL NORMAL Urine leukocyte esterase detection by dipstick 1+ NEGATIVE Automated urine sediment erythrocyte count by microscopy (number/high power field) NONE NRG Automated urine sediment leukocyte count by microscopy (number/high power field ) [HPF] NRG Bacteria detection in urine sediment by light microscopy LARGE NRG Squamous epithelial cells detection in urine sediment by light microscopy 10-25 NRG Crystals detection in urine sediment by light microscopy NONE NRG Casts detection in urine sediment by light microscopy NONE NRG Mucus detection in urine sediment by light microscopy MODERATE NRG Complete urinalysis with reflex to culture NO NRG Complete blood count (CBC) with automated white blood cell (WBC) differential - 02/19/18 19:00 Blood leukocytes automated count (number/volume) 6.2 10*3/uL 4.3-11.0 Blood erythrocytes automated count (number/volume) 4.77 10*6/uL 4.35-5.85 Venous blood hemoglobin measurement (mass/volume) 13.7 g/dL 11.5-16.0 Blood hematocrit (volume fraction) 40 % 35-52 Automated erythrocyte mean corpuscular volume 85 [foz_us] 80-99 Automated erythrocyte mean corpuscular hemoglobin (mass per erythrocyte) 29 pg 25-34 Automated erythrocyte mean corpuscular hemoglobin concentration measurement ( mass/volume) 34 g/dL 32-36 Automated erythrocyte distribution width ratio 14.7 % 10.0-14.5 Automated blood platelet count (count/volume) 309 10*3/uL 130-400 Automated blood platelet mean volume measurement 9.0 [foz_us] 7.4-10.4 Automated blood neutrophils/100 leukocytes 58 % 42-75 Automated blood lymphocytes/100 leukocytes 31 % 12-44 Blood monocytes/100 leukocytes 7 % 0-12 Automated blood eosinophils/100 leukocytes 4 % 0-10 Automated blood basophils/100 leukocytes 1 % 0-10 Blood neutrophils automated count (number/volume) 3.6 10*3 1.8-7.8 Blood lymphocytes automated count (number/volume) 1.9 10*3 1.0-4.0 Blood monocytes automated count (number/volume) 0.4 10*3 0.0-1.0 Automated eosinophil count 0.3 10*3/uL 0.0-0.3 Automated blood basophil count (count/volume) 0.0 10*3/uL 0.0-0.1 Comprehensive metabolic panel - 02/19/18 19:00 Serum or plasma sodium measurement (moles/volume) 139 mmol/L 135-145 Serum or plasma potassium measurement (moles/volume) 3.8 mmol/L 3.6-5.0 Serum or plasma chloride measurement (moles/volume) 106 mmol/L 98-107 Carbon dioxide 23 mmol/L 21-32 Serum or plasma anion gap determination (moles/volume) 10 mmol/L 5-14 Serum or plasma urea nitrogen measurement (mass/volume) 12 mg/dL 7-18 Serum or plasma creatinine measurement (mass/volume) 0.73 mg/dL 0.60-1.30 Serum or plasma urea nitrogen/creatinine mass ratio 16 NRG Serum or plasma creatinine measurement with calculation of estimated glomerular filtration rate > NRG Serum or plasma glucose measurement (mass/volume) 93 mg/dL 70-105 Serum or plasma calcium measurement (mass/volume) 9.9 mg/dL 8.5-10.1 Serum or plasma total bilirubin measurement (mass/volume) 0.7 mg/dL 0.1-1.0 Serum or plasma alkaline phosphatase measurement (enzymatic activity/volume) 60 U/L 40-136 Serum or plasma aspartate aminotransferase measurement (enzymatic activity/ volume) 26 U/L 5-34 Serum or plasma alanine aminotransferase measurement (enzymatic activity/volume ) 22 U/L 0-55 Serum or plasma protein measurement (mass/volume) 8.3 g/dL 6.4-8.2 Serum or plasma albumin measurement (mass/volume) 4.3 g/dL 3.2-4.5 CALCIUM CORRECTED 9.7 mg/dL 8.5-10.1 Lipase - 02/19/18 19:00 Lipase 46 U/L 8-78 Encounters ACCT No. Visit Date/Time Discharge Status Pt. Type Provider Facility Loc./Unit Complaint [id number] 07/17/2014 09:33:00 07/17/2014 23:59:59 CLS Outpatient VERONIQUE VELA APRN [id number] 07/09/2014 15:13:00 07/09/2014 23:59:59 CLS Outpatient VERONIQUE VELA APRN [id number] 05/01/2014 09:18:00 05/01/2014 23:59:59 CLS Outpatient VERONIQUE VELA APRN [id number] 03/04/2014 13:51:00 03/04/2014 23:59:59 CLS Outpatient MIRIAN NEALVERONIQUE Bruce [id number] 02/03/2014 10:43:00 02/03/2014 23:59:59 CLS Outpatient ROLY POPE DO [id number] 10/22/2013 10:48:00 10/22/2013 23:59:59 CLS Outpatient GABRIEL NEALNTUANMk Herrmann [id number] 09/19/2013 11:44:00 09/19/2013 23:59:59 CLS Outpatient ROLY POPE DO Usman [id number] 04/22/2013 08:47:00 04/22/2013 23:59:59 CLS Outpatient MIRIAN [employer] SALES VITAMIN CONSULTANTVERONIQUE Bruce [id number] 06/20/2012 08:41:00 06/20/2012 23:59:59 CLS Outpatient SERJIO MEEHAN ADELINE Robert [id number] 04/19/2010 00:00:00 04/19/2010 23:59:59 CLS Outpatient [id number] 11/15/2012 14:41:00 Document Registration [id number] 08/24/2012 10:24:00 Document Registration [id number] 09/08/2017 00:52:00 09/08/2017 02:50:00 [id number]/2017 20:19:00 05/20/2017 21:08:00 [id number]/08/2016 10:52:00 04/08/2016 12:21:00 [id number] 04/08/2016 11:31:22 Document Registration [id number] 07/04/2016 14:08:00 Document Registration [id number] 04/08/2016 18:06:00 Document Registration [id number] 02/19/2018 17:39:00 02/19/2018 21:09:00 DIS Outpatient JAELYN MORALES [employer] SAL[employer]SULTANT [facility] ER POST TUMMY TUCK/ABD PAIN/ VOMITING [id number] 01/03/2018 13:30:00 01/03/2018 23:59:59 CLS Preadmit SARAHI ERVIN [employer] [facility] REHAB L SHOULDER PAIN [id number] 10/05/2017 21:38:00 10/06/2017 01:35:00 DIS Emergency NINO WINLKER MD [facility] ER L SIDE ABD PAIN GOING TO L SHOULDER/BACK [id number] 07/26/2017 11:13:00 07/26/2017 14:40:00 DIS Outpatient WATSON PAINTER MD [facility] ENDO SCREENING [id number] 07/24/2017 05:35:00 07/24/2017 13:32:00 DIS Outpatient WATSON PAINTER MD [facility] PREOP COLONOSCOPY [id number] 06/20/2017 00:12:00 06/20/2017 01:25:00 DIS Emergency JEREMY MAC MD [facility] ER MIDDLE LOWER BACK LOCKING UP,ABD PAIN PELVIC P [id number] 11/17/2016 11:45:00 11/18/2016 12:50:00 DIS Inpatient WATSON PAINTER MD [facility] 4TH MORBID OBESITY [id number] 11/10/2016 11:38:00 11/10/2016 23:59:59 CLS Outpatient WATSON PAINTER MD [facility] PREOP MORBID OBESITY [id number] 09/07/2016 09:49:00 09/07/2016 23:59:59 CLS Outpatient LYSSA MILES RETAIL SALES VITAMIN CONSULTANT [facility] RAD REFLUX [id number] 07/30/2016 18:13:00 07/30/2016 22:03:00 DIS Emergency NINO WINKLER MD [facility] ER POST OP/SOA [id number] 07/28/2016 09:16:00 07/28/2016 16:00:00 DIS Outpatient HERSON VENTURA DO [facility] SDC LEFT ABDOMINAL MASS [id number] 07/24/2016 13:54:00 07/24/2016 18:01:00 DIS Emergency NINO WINKLER MD [facility] ER GALLBLADDER/BACK PAIN [id number] 07/22/2016 08:52:00 07/22/2016 23:59:59 CLS Outpatient WATSON PAINTER MD [facility] CARD ABD PAIN [id number] 07/21/2016 13:36:00 07/21/2016 23:59:59 CLS Outpatient WATSON PAINTER MD [facility] RAD LLQ PAIN [id number] 04/21/2016 11:45:00 04/21/2016 14:50:00 DIS Emergency JAELYN MORALES RETAIL SALES VITAMIN CONSULTANT [facility] ER RIGHT LOWER BACK PAIN [id number] 03/08/2016 17:20:00 03/08/2016 20:33:00 DIS Emergency ADILIA RAHMAN [facility] ER SORE THROAT, CHILLS, BACK PAIN [id number] 11/23/2015 15:57:00 11/23/2015 23:59:59 CLS Outpatient SARAHI ERVIN RETAIL SALES VITAMIN CONSULTANT [facility] RAD PAIN IN LT KNEE [id number] 11/19/2015 13:24:00 11/19/2015 23:59:59 CLS Outpatient SARAHI ERVIN RETAIL SALES VITAMIN CONSULTANT [facility] RAD PAIN IN LT KNEE [id number] 09/10/2015 19:22:00 09/10/2015 22:20:00 DIS Emergency JUSTUS LIN DO [facility] ER RIGHT ARM PAIN;WEAKNESS; FEVER [id number] 05/22/2015 08:01:00 05/22/2015 23:59:59 CLS Outpatient SARAHI ERVIN RETAIL SALES VITAMIN CONSULTANT [facility] RAD LT KNEE INJURY [id number] 03/31/2015 08:56:00 03/31/2015 23:59:59 CLS Outpatient QAMAR GODOY RETAIL SALES VITAMIN CONSULTANT [facility] RAD SCREENING [id number] 03/13/2015 11:30:00 03/13/2015 23:59:59 CLS Outpatient SARAHI ERVIN RETAIL SALES VITAMIN CONSULTANT [facility] CARD RIGHT UPPER QUADRANT PAIN [id number] 03/04/2015 13:12:00 03/04/2015 23:59:59 CLS Outpatient SARAHI ERVIN RETAIL SALES VITAMIN CONSULTANT [facility] RAD RIGHT UPPER QUADRANT PAIN [id number] 03/02/2015 18:48:00 03/02/2015 22:51:00 DIS Emergency ADILIA RAHMAN [facility] ER ABD PAIN/VOMITING/ DIARRHEA [id number] 02/07/2015 09:15:00 02/07/2015 10:16:00 DIS Emergency YUMIKO MARTINEZ MD [facility] ER PAINFUL BREATHING/ SORE THROAT [id number] 11/24/2014 15:36:00 11/24/2014 19:12:00 DIS Emergency ADILIA RAHMAN [facility] ER [id number] 07/12/2014 15:25:00 07/12/2014 16:30:00 DIS Emergency JAELYN MORALES RETAIL SALES VITAMIN CONSULTANT [facility] ER [id number] 09/12/2013 11:25:00 09/12/2013 23:59:59 CLS Outpatient [id number] 08/26/2013 14:16:00 08/26/2013 16:45:00 DIS Emergency JAELYN MORALES RETAIL SALES VITAMIN CONSULTANT [facility] ER [id number] 08/05/2013 10:42:00 08/05/2013 12:25:00 DIS Emergency JAELYN MORALES RETAIL SALES VITAMIN CONSULTANT [facility] ER [id number] 11/10/2012 13:43:00 11/10/2012 23:59:59 CLS Outpatient [id number] 06/07/2018 19:34:00 ACT Emergency JEREMY MAC MD [facility] ER STOMACH CRAMPING,DIZZY [id number] 07/12/2014 15:26:00 Document Registration [id number] 03/07/2010 15:59:00 Document Registration [id number] 09/18/2009 08:18:00 Document Registration [id number] 07/24/2009 17:49:00 Document Registration [id number] 04/10/2018 12:15:00 04/10/2018 23:59:59 CLS Outpatient SARAHI ERVIN [facility]
--- NOTE | 2018-06-07 20:16 | ED General ---
General Chief Complaint: Abdominal/GI Problems Stated Complaint: STOMACH CRAMPING,DIZZY Nursing Triage Note: pt presents to ed with complaints of generalized malaise and chills starting yesterday. pt reports abdominal cramping and nausea starting today but denies v/d. Nursing Sepsis Screen: No Definite Risk Source of Information: Patient Exam Limitations: No Limitations History of Present Illness Date Seen by Provider: Jun 07, 2018 Time Seen by Provider: 20:14 Initial Comments To ER with a 24 hour history of general malaise and chills without fever, nausea without vomiting, diarrhea, rhinorrhea, nonproductive cough, sore throat Timing/Duration: 1-2 Days Severity: Moderate Associated Systoms: Cough, Fever/Chills, Malaise, Nausea/Vomiting Allergies and Home Medications Allergies Coded Allergies: No Known Drug Allergies (Unverified , 11/10/16) Home Medications No Active Prescriptions or Reported Meds Patient Home Medication List Home Medication List Reviewed: Yes Review of Systems Review of Systems Constitutional: see HPI, chills, fever, weakness EENTM: see HPI, throat pain Respiratory: see HPI, cough Cardiovascular: no symptoms reported Genitourinary: no symptoms reported Skin: no symptoms reported Psychiatric/Neurological: No Symptoms Reported Hematologic/Lymphatic: No Symptoms Reported Immunological/Allergic: no symptoms reported Past Elypjnf-Riwoii-Sftscw Hx Patient Social History Alcohol Use: Denies Use Number of Drinks Today: AA Alcohol Beverage of Choice: Beer Recreational Drug Use: No Smoking Status: Never a Smoker 2nd Hand Smoke Exposure: No Recent Foreign Travel: No Contact w/Someone Who Travel: No Recent Infectious Disease Expo: No Recent Hopitalizations: No Immunizations Up To Date Tetanus Booster (TDap): Unknown Date of Influenza Vaccine: Jan 25, 2015 Seasonal Allergies Seasonal Allergies: No Past Medical History Surgeries: Yes (LEFT KNEE X2 SCOPE, RIGHT KNEE SCOPE, c/s x4, gastric sleeve, TUMMY TUCK) Appendectomy, Section, Gallbladder, Hysterectomy, Oophorectomy, Orthopedic, Tubal Ligation Respiratory: No Currently Using CPAP: No Currently Using BIPAP: No Cardiac: No High Cholesterol Neurological: No Reproductive Disorders: No Female Reproductive Disorders: Denies 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 Sexually Transmitted Disease: No HIV/AIDS: No Genitourinary: Yes Kidney Infection, Bladder Infection, Kidney Stones, UTI-Chronic Gastrointestinal: Yes Chronic Diarrhea, Irritable Bowel Musculoskeletal: Yes Arthritis Endocrine: No HEENT: No Loss of Vision: Bilateral Hearing Impairment: Denies Cancer: No Psychosocial: Yes Anxiety Integumentary: No Blood Disorders: No Adverse Reaction/Blood Tranf: No Family Medical History No Pertinent Family Hx Physical Exam Vital Signs Vital Signs - First Documented 06/07/18 19:43 Temp 96.9 Pulse 69 Resp 18 B/P (MAP) 96/59 (71) Capillary Refill : Less Than 3 Seconds Height, Weight, BMI Height: 5'2.00" Weight: 166lbs. 0oz. 75.938909hh; 28.7 BMI Method:Stated General Appearance: No Apparent Distress, WD/WN Eyes: Bilateral Eye Normal Inspection, Bilateral Eye PERRL, Bilateral Eye EOMI HEENT: PERRL/EOMI, TMs Normal, Normal ENT Inspection Neck: Full Range of Motion, Normal Inspection Respiratory: Normal Breath Sounds, No Accessory Muscle Use, No Respiratory Distress Gastrointestinal: Normal Bowel Sounds, Non Tender, Soft Extremity: Normal Inspection 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: Alert, Oriented x3, No Motor/Sensory Deficits Skin: Normal Color, Warm/Dry Progress/Results/Core Measures Suspected Sepsis Recent Fever Within 48 Hours: No Infection Criteria Present: None New/Unexplained Altered Menta: No Sepsis Screen: No Definite Risk SIRS Temperature:96.9 Pulse: 69 Respiratory Rate: 18 Laboratory Tests 06/07/18 20:20: White Blood Count 5.5 Blood Pressure 96 /59 Mean: 71 Laboratory Tests 06/07/18 20:20: Creatinine 0.73, Platelet Count 198, Total Bilirubin 0.4 Results/Orders Lab Results Laboratory Tests Test 06/07/18 20:20 06/07/18 20:30 Range/Units White Blood Count 5.5 4.3-11.0 10^3/uL Red Blood Count 4.80 4.35-5.85 10^6/uL Hemoglobin 13.5 11.5-16.0 G/DL Hematocrit 41 35-52 % Mean Corpuscular Volume 84 80-99 FL Mean Corpuscular Hemoglobin 28 25-34 PG Mean Corpuscular Hemoglobin Concent 33 32-36 G/DL Red Cell Distribution Width 15.1 H 10.0-14.5 % Platelet Count 198 130-400 10^3/uL Mean Platelet Volume 9.6 7.4-10.4 FL Neutrophils (%) (Auto) 48 42-75 % Lymphocytes (%) (Auto) 37 12-44 % Monocytes (%) (Auto) 11 0-12 % Eosinophils (%) (Auto) 4 0-10 % Basophils (%) (Auto) 1 0-10 % Neutrophils # (Auto) 2.6 1.8-7.8 X 10^3 Lymphocytes # (Auto) 2.0 1.0-4.0 X 10^3 Monocytes # (Auto) 0.6 0.0-1.0 X 10^3 Eosinophils # (Auto) 0.2 0.0-0.3 10^3/uL Basophils # (Auto) 0.0 0.0-0.1 10^3/uL Sodium Level 140 135-145 MMOL/L Potassium Level 3.2 L 3.6-5.0 MMOL/L Chloride Level 109 H 98-107 MMOL/L Carbon Dioxide Level 23 21-32 MMOL/L Anion Gap 8 5-14 MMOL/L Blood Urea Nitrogen 12 7-18 MG/DL Creatinine 0.73 0.60-1.30 MG/DL Estimat Glomerular Filtration Rate > 60 BUN/Creatinine Ratio 16 Glucose Level 105 70-105 MG/DL Calcium Level 9.1 8.5-10.1 MG/DL Corrected Calcium 9.0 8.5-10.1 MG/DL Total Bilirubin 0.4 0.1-1.0 MG/DL Aspartate Amino Transf (AST/SGOT) 17 5-34 U/L Alanine Aminotransferase (ALT/SGPT) 12 0-55 U/L Alkaline Phosphatase 56 40-136 U/L Total Protein 7.6 6.4-8.2 GM/DL Albumin 4.1 3.2-4.5 GM/DL Urine Color YELLOW Urine Clarity CLEAR Urine pH 5 5-9 Urine Specific [place] 1.030 H 1.016-1.022 Urine Protein 1+ H NEGATIVE Urine Glucose (UA) NEGATIVE NEGATIVE Urine Ketones NEGATIVE NEGATIVE Urine Nitrite NEGATIVE NEGATIVE Urine Bilirubin NEGATIVE NEGATIVE Urine Urobilinogen 1 NORMAL MG/DL Urine Leukocyte Esterase 1+ H NEGATIVE Urine RBC (Auto) NEGATIVE NEGATIVE Urine RBC NONE /HPF Urine WBC 2-5 /HPF Urine Squamous Epithelial Cells 5-10 /HPF Urine Crystals NONE /LPF Urine Bacteria TRACE /HPF Urine Casts NONE /LPF Urine Mucus LARGE H /LPF Urine Culture Indicated NO Micro Results Microbiology 06/07/18 Influenza Types A,B Antigen (SHOAIB) - Final, Complete My Orders Orders - JAELYN MORALES APRN Cbc With Automated Diff (06/07/18 20:13) Comprehensive Metabolic Panel (06/07/18 20:13) Ua Culture If Indicated (06/07/18 20:13) Influenza A And B Antigens (06/07/18 20:13) Oseltamivir 75 Mg Capsule (Tamiflu 75 (06/07/18 20:45) Rx-Ondansetron Po (Rx-Zofran Po) (06/07/18 20:45) Vital Signs/I&O 06/07/18 19:43 Temp 96.9 Pulse 69 Resp 18 B/P (MAP) 96/59 (71) Capillary Refill : Less Than 3 Seconds Blood Pressure Mean: 71 Departure Impression Primary Impression: Influenza B Disposition: 01 HOME, SELF-CARE Condition: Stable Departure-Patient Inst. Decision time for Depature: 20:15 Referrals: [facility] (PCP/Family) Primary Care Physician Patient Instructions: Flu, Adult (DC) Add. Discharge Instructions: 1. Tylenol and Motrin for body aches 2. Return to ER for any concerns 3. See your doctor later next week for recheck. If the Tamiflu causes too much nausea than simply quit taking it. All discharge instructions reviewed with patient and/or family. Voiced understanding. Scripts Oseltamivir Phosphate (Tamiflu) 75 Mg Cap 75 MG PO BID, #10 CAP Prov: JAELYN MORALES APRN 06/07/18 Work/School Note: Work Release Form Date Seen in the Emergency Department: Jun 07, 2018 Return to Work: Jun 13, 2018 JAELYN MORALES APRN Jun 07, 2018 20:16
[2018-06-07 20:25] LABS: BASOPHILS % (AUTO) 1 % (0-10); EOSINOPHILS # (AUTO) 0.2 10^3/uL (0.0-0.3); EOSINOPHILS % (AUTO) 4 % (0-10); HEMATOCRIT 41 % (35-52); HEMOGLOBIN 13.5 G/DL (11.5-16.0); LYMPHOCYTES % (AUTO) 37 % (12-44); MEAN CORPUSCULAR HEMOGLOBIN 28 PG (25-34); MEAN CORPUSCULAR HGB CONC 33 G/DL (32-36); MEAN CORPUSCULAR VOLUME 84 FL (80-99); MEAN PLATELET VOLUME 9.6 FL (7.4-10.4); MONOCYTES # (AUTO) 0.6 X 10^3 (0.0-1.0); MONOCYTES % (AUTO) 11 % (0-12); NEUTROPHILS # (AUTO) 2.6 X 10^3 (1.8-7.8); NEUTROPHILS % (AUTO) 48 % (42-75); PLATELET COUNT 198 10^3/uL (130-400); RED CELL DISTRIBUTION WIDTH 15.1 % (10.0-14.5); WHITE BLOOD COUNT 5.5 10^3/uL (4.3-11.0)
[2018-06-07 20:35] LABS: BILIRUBIN,URINE NEGATIVE (NEGATIVE); CLARITY,URINE CLEAR; COLOR,URINE YELLOW; GLUCOSE, URINE (UA) NEGATIVE (NEGATIVE); KETONES,URINE NEGATIVE (NEGATIVE); LEUKOCYTE ESTERASE ,URINE 1+ (NEGATIVE); NITRITE,URINE NEGATIVE (NEGATIVE); PH,URINE 5 (5-9); PROTEIN,URINE 1+ (NEGATIVE); UROBILINOGEN,URINE 1 MG/DL (NORMAL)
[2018-06-07 20:44] LABS: ALANINE AMINOTRANSFERASE 12 U/L (0-55); ALBUMIN 4.1 GM/DL (3.2-4.5); ALKALINE PHOSPHATASE 56 U/L (40-136); BILIRUBIN,TOTAL 0.4 MG/DL (0.1-1.0); BUN/CREATININE RATIO 16; CALCIUM 9.1 MG/DL (8.5-10.1); CARBON DIOXIDE 23 MMOL/L (21-32); CHLORIDE 109 MMOL/L (98-107); CREATININE SERUM 0.73 MG/DL (0.60-1.30); GFR ESTIMATED > 60; GLUCOSE 105 MG/DL (70-105); POTASSIUM 3.2 MMOL/L (3.6-5.0); SODIUM 140 MMOL/L (135-145); TOTAL PROTEIN 7.6 GM/DL (6.4-8.2)
[2018-06-07 20:45] LABS: BACTERIA,URINE TRACE /HPF
[2018-06-07] MEDS ORDERED: RX-ONDANSETRON 4 MG ODT (ZOFRAN) PPK #4 PO STA (20:45)
[2018-06-07] MEDS ORDERED: OSELTAMIVIR 75 MG (TAMIFLU) CAPSULE PO ONE (20:45)
[2018-06-07] MEDS ORDERED: OSLT75C PO (20:47)
[2018-06-07 20:54] VITALS: BP 120/82
== END 2018-06-07 20:54 | disposition home or self-care (01) ==
LOC: EDUNIT# 19:33 → ER 19:34
DX: J10.1 Influenza due to other identified influenza virus with other respiratory manifestations (principal); K58.9 Irritable bowel syndrome, unspecified; F41.9 Anxiety disorder, unspecified; E78.00 Pure hypercholesterolemia, unspecified; Z87.448 Personal history of other diseases of urinary system; Z87.19 Personal history of other diseases of the digestive system; Z87.442 Personal history of urinary calculi; Z87.440 Personal history of urinary (tract) infections; Z98.84 Bariatric surgery status; Z90.49 Acquired absence of other specified parts of digestive tract; Z98.890 Other specified postprocedural states; Z90.710 Acquired absence of both cervix and uterus; Z98.51 Tubal ligation status
CPT/HCPCS: 36415; 80053; 81000; 85025; 87804

== ENCOUNTER 2018-06-18 18:58 | Emergency (ER) | payer OTHER ==
[~2018-06-18] VITALS: Ht 157.5 cm; Wt 74.8 kg
[~2018-06-18 18:58] MED LIST changes: +OSLT75C PO
[2018-06-18] MEDS ORDERED: CYCLOBENZAPRINE 10 MG (FLEXERIL) TAB PO SCH (19:45)
[2018-06-18] MEDS ORDERED: KETOROLAC 60 MG/2 ML VIAL IM ONE (19:45)
--- NOTE | 2018-06-18 19:57 | Diagnostic Imaging Report ---
PROCEDURE: CT cervical spine without contrast. TECHNIQUE: Multiple contiguous axial images were obtained through the cervical spine without the use of intravenous contrast. Sagittal and coronal reformations were then performed. Auto Exposure Controls were utilized during the CT exam to meet ALARA standards for radiation dose reduction. INDICATION: Severe neck pain. No history of trauma. FINDINGS: Sagittal and coronal reformatted images. Good alignment of vertebral bodies. Body heights and disc spaces are well maintained. Facets show good alignment. The atlantoaxial joint is normal. No fractures are demonstrated. No hypertrophic bony changes are seen. The surrounding soft tissues appear normal. IMPRESSION: Normal CT cervical spine. Dictated by: Dictated on workstation # [id number]
--- NOTE | 2018-06-18 20:21 | ED Neck-Back Pain/Injury ---
General Chief Complaint: Head/Cervical Problems Stated Complaint: NECK PAIN Nursing Triage Note: PATIENT STATES THAT SHE IS HERE BECAUSE SHE WANTS A SCAN OF HER NECK. SHE HAS BEEN HAVING NECK PAINS FOR 2 WEEKS AND RECENTLY LEARNED THAT SHE HER FATHER AND SISTER HAVE A GENETIC CONDITION RELATED TO THE NECK PAIN THAT REQUIRED SURGERY. SHE WOULD LIKE THIS CHECKED OUT TODAY. Nursing Sepsis Screen: No Definite Risk Source of Information: Patient Exam Limitations: No Limitations History of Present Illness Date Seen by Provider: Jun 18, 2018 Time Seen by Provider: 19:30 Allergies and Home Medications Allergies Coded Allergies: No Known Drug Allergies (Unverified , 11/10/16) Past Gtmdldx-Detnrh-Aebjzq Hx Patient Social History Alcohol Use: Denies Use Number of Drinks Today: AA Alcohol Beverage of Choice: Beer Recreational Drug Use: No Smoking Status: Never a Smoker 2nd Hand Smoke Exposure: No Recent Foreign Travel: No Contact w/Someone Who Travel: No Recent Infectious Disease Expo: No Recent Hopitalizations: No Immunizations Up To Date Tetanus Booster (TDap): Unknown Date of Influenza Vaccine: Jan 25, 2015 Seasonal Allergies Seasonal Allergies: No Past Medical History Surgeries: Yes (LEFT KNEE X2 SCOPE, RIGHT KNEE SCOPE, c/s x4, gastric sleeve, TUMMY TUCK) Appendectomy, Section, Gallbladder, Hysterectomy, Oophorectomy, Orthopedic, Tubal Ligation Respiratory: No Currently Using CPAP: No Currently Using BIPAP: No Cardiac: No High Cholesterol Neurological: No Reproductive Disorders: No Female 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 Sexually Transmitted Disease: No HIV/AIDS: No Genitourinary: Yes Kidney Infection, Bladder Infection, Kidney Stones, UTI-Chronic Gastrointestinal: Yes Chronic Diarrhea, Irritable Bowel Musculoskeletal: Yes Arthritis Endocrine: No Diabetes, Non-Insulin dep HEENT: No Loss of Vision: Bilateral Hearing Impairment: Denies Cancer: No Psychosocial: Yes Anxiety Integumentary: No Blood Disorders: No Adverse Reaction/Blood Tranf: No Family Medical History No Pertinent Family Hx Physical Exam Vital Signs Vital Signs - First Documented 06/18/18 19:03 Temp 97.4 Pulse 63 Resp 18 B/P (MAP) 104/59 (74) Pulse Ox 98 Capillary Refill : Less Than 3 Seconds Height, Weight, BMI Height: 5'2.00" Weight: 165lbs. 0oz. 74.708602ex; 28.7 BMI Method:Stated Progress/Results/Core Measures Results/Orders My Orders Orders - EILEEN SMITH Ketorolac Injection (Toradol Injection) (06/18/18 19:45) Cyclobenzaprine Tablet (Flexeril Tablet) (06/18/18 19:45) Ct Cervical Spine Wo (06/18/18 19:32) Medications Given in ED Current Medications Medications Dose Ordered Sig/Rachelle Route Start Time Stop Time Status Last Admin Dose Admin Ketorolac Tromethamine 60 mg ONCE ONCE IM 06/18/18 19:45 06/18/18 19:46 DC 06/18/18 20:03 60 MG Vital Signs/I&O 06/18/18 19:03 Temp 97.4 Pulse 63 Resp 18 B/P (MAP) 104/59 (74) Pulse Ox 98 Blood Pressure Mean: 74 Departure Impression Primary Impression: Cervical muscle strain Disposition: 01 HOME, SELF-CARE Condition: Stable/Unchanged Departure-Patient Inst. Decision time for Depature: 20:20 Referrals: [facility] (PCP/Family) Primary Care Physician Patient Instructions: Cervical Muscle Strain (DC) Add. Discharge Instructions: You may alternate ice and heat to the sore areas at 20 minute intervals. You may use Tylenol [id number] as directed by the bottle for pain relief. Follow-up with your primary care provider if symptoms persist. Return back to the emergency room for worsening symptoms or concerns as needed. All discharge instructions reviewed with patient and/or family. Voiced understanding. EILEEN SMITH Jun 18, 2018 20:21
[2018-06-18 20:46] VITALS: BP 104/59
== END 2018-06-18 20:47 | disposition home or self-care (01) ==
LOC: EDUNIT# 18:58 → ER 19:00
DX: S16.1XXA Strain of muscle, fascia and tendon at neck level, initial encounter (principal); E78.00 Pure hypercholesterolemia, unspecified; K58.9 Irritable bowel syndrome, unspecified; E11.9 Type 2 diabetes mellitus without complications; F41.9 Anxiety disorder, unspecified; Z87.440 Personal history of urinary (tract) infections; Z87.19 Personal history of other diseases of the digestive system; Z87.448 Personal history of other diseases of urinary system; Z98.84 Bariatric surgery status; Z98.890 Other specified postprocedural states; Z90.49 Acquired absence of other specified parts of digestive tract; Z90.710 Acquired absence of both cervix and uterus; Z98.51 Tubal ligation status; X58.XXXA Exposure to other specified factors, initial encounter
CPT/HCPCS: 72125

== ENCOUNTER 2019-02-21 23:02 | Emergency (ER) | payer BC, OTHER ==
[~2019-02-21] VITALS: Ht 158 cm; Wt 75.7 kg
[2019-02-21] MEDS ORDERED: PHEN37.53 (23:13)
[2019-02-21] MEDS ORDERED: CEPH-507 PO (23:52)
--- NOTE | 2019-02-21 23:52 | ED Integumentary General ---
General Chief Complaint: Skin/Wound Problems Stated Complaint: RASH ON BOTH ARMS,LIGHT HEADED, NAUSEA, Nursing Triage Note: itchy rash to right/left wrist/chest Source: patient Exam Limitations: no limitations History of Present Illness Date Seen by Provider: Feb 21, 2019 Time Seen by Provider: 23:43 Initial Comments This 43-year-old woman presents to the emergency room with rash on her bilateral forearms and on her neck creeping up toward her face. Rash has been present for about one week. Her has also had a similar rash. She tried applying some topical treatments such as peroxide or alcohol on the rash without improvement. She does note they cut down a tree and drug it to a brush pile prior to onset of rash. She has a patch of the rash on the right wrist that has become swollen and hot. She is concerned about infection. She is afebrile. Allergies and Home Medications Allergies Coded Allergies: No Known Drug Allergies (Unverified , 11/10/16) Home Medications Cephalexin 500 Mg Capsule, 500 MG PO QID Prescribed by: NINO SUMNER on 02/21/19 4823 Patient Home Medication List Home Medication List Reviewed: Yes Review of Systems Review of Systems Constitutional: no symptoms reported EENTM: no symptoms reported Respiratory: no symptoms reported Cardiovascular: no symptoms reported Gastrointestinal: no symptoms reported Genitourinary: no symptoms reported : No Musculoskeletal: no symptoms reported Skin: see HPI Psychiatric/Neurological: No Symptoms Reported Endocrine: No Symptoms Reported Past Bkggers-Eyavfl-Pgrlik Hx Past Med/Social Hx: Reviewed Nursing Past Med/Soc Hx Patient Social History Alcohol Use: Denies Use Number of Drinks Today: AA Alcohol Beverage of Choice: Beer Recreational Drug Use: No Smoking Status: Never a Smoker 2nd Hand Smoke Exposure: No Recent Foreign Travel: No Contact w/Someone Who Travel: No Recent Infectious Disease Expo: No Recent Hopitalizations: No Physical Abuse: No Sexual Abuse: No Mistreated: No Fear: No Immunizations Up To Date Tetanus Booster (TDap): Unknown Date of Influenza Vaccine: Jan 25, 2015 Seasonal Allergies Seasonal Allergies: No Past Medical History Surgeries: Yes (LEFT KNEE X2 SCOPE, RIGHT KNEE SCOPE, c/s x4, gastric sleeve, TUMMY TUCK) Appendectomy, Section, Gallbladder, Hysterectomy, Oophorectomy, Orthopedic, Tubal Ligation Respiratory: No Currently Using CPAP: No Currently Using BIPAP: No Cardiac: Yes High Cholesterol Neurological: No : No Reproductive Disorders: No Female Reproductive Disorders: 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 Sexually Transmitted Disease: No HIV/AIDS: No Genitourinary: Yes Kidney Infection, Bladder Infection, Kidney Stones, UTI-Chronic Gastrointestinal: Yes Chronic Diarrhea, Irritable Bowel Musculoskeletal: Yes Arthritis Endocrine: Yes Diabetes, Non-Insulin dep HEENT: No Loss of Vision: Bilateral Hearing Impairment: Denies Cancer: No Psychosocial: Yes Anxiety Integumentary: Yes Recent Skin Changes Blood Disorders: No Adverse Reaction/Blood Tranf: No Family Medical History No Pertinent Family Hx Physical Exam Vital Signs Vital Signs - First Documented 02/21/19 23:07 Temp 36.5 Pulse 91 Resp 18 B/P (MAP) 102/68 (79) Pulse Ox 98 O2 Delivery Room Air Capillary Refill : Less Than 3 Seconds General Appearance: WD/WN, no apparent distress Neck: other (Small patches of slightly raised erythematous pruritic skin) Respiratory: no respiratory distress Extremities: other (Patches of slightly raised erythematous pruritic skin noted on both upper extremities. 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 First dose was given in the ER. Symptomatic treatment with topical steroids and antihistamines was recommended for the poison lupe. Departure Impression Primary Impression: Contact dermatitis due to poison lupe Additional Impression: Cellulitis of right wrist Disposition: 01 HOME, SELF-CARE Condition: Improved Departure-Patient Inst. Decision time for Depature: 23:50 Referrals: [facility] (PCP/Family) Primary Care Physician Patient Instructions: Poison Lupe, Cellulitis (Skin Infection), Adult (DC) Add. Discharge Instructions: Complete your antibiotics as prescribed. For the poison lupe you may apply topical steroids such as hydrocortisone cream. Follow package instructions. You may also use an antihistamine such as Benadryl (diphenhydramine) to help with the itching. The rash should resolve without any further interventions within a week. Please return to care if you have worsening symptoms especially if the area of cellulitis on your wrist a spreading or if you develop fever over 100. Try to avoid scratching to reduce risk of further infection. All discharge instructions reviewed with patient and/or family. Voiced understanding. Scripts Cephalexin (Keflex) 500 Mg Capsule 500 MG PO QID, #28 CAP Prov: NINO WINKLER MD 02/21/19 NINO WINKLER MD Feb 21, 2019 23:52 POS
[2019-02-21 23:57] VITALS: BP 102/68
[2019-02-22] MEDS ORDERED: CEPHALEXIN 250 MG (KEFLEX) CAP PO ONE
== END 2019-02-21 23:57 | disposition home or self-care (01) ==
LOC: EDUNIT# 23:02 → ER 23:04
DX: L23.7 Allergic contact dermatitis due to plants, except food (principal); L03.113 Cellulitis of right upper limb; E78.00 Pure hypercholesterolemia, unspecified; K58.9 Irritable bowel syndrome, unspecified; E11.9 Type 2 diabetes mellitus without complications; F41.9 Anxiety disorder, unspecified; Z87.440 Personal history of urinary (tract) infections; Z87.442 Personal history of urinary calculi; Z90.49 Acquired absence of other specified parts of digestive tract; Z90.710 Acquired absence of both cervix and uterus; Z98.51 Tubal ligation status
CPT/HCPCS: 99283

== ENCOUNTER 2019-02-23 13:35 | Emergency (ER) | payer BC ==
[~2019-02-23] VITALS: Ht 157.4 cm; Wt 75.5 kg
[~2019-02-23 13:35] MED LIST changes: +CEPH-507 PO; +PHEN37.53
[2019-02-23] MEDS ORDERED: DEXAMETHASONE 10 MG/ML (DECADRON) 1 ML VIAL IM ONE (15:00)
[2019-02-23] MEDS ORDERED: diphenhydrAMINE 50 MG/ML INJ (BENADRYL) IM ONE (15:00)
[2019-02-23] MEDS ORDERED: HYDR-700 PO (15:08)
--- NOTE | 2019-02-23 15:09 | ED General ---
General Chief Complaint: Allergic Reaction Stated Complaint: RASH ALL OVER Nursing Triage Note: Pt to ED with concern of hives/rash generalized over torso, arms and legs. Pt reports rash is now spreading to face. Pt c/o itching. Pt reports symptoms started after starting cephalexin yesterday. Nursing Sepsis Screen: No Definite Risk Source of Information: Patient Exam Limitations: No Limitations History of Present Illness Date Seen by Provider: Feb 23, 2019 Time Seen by Provider: 15:04 Initial Comments She was seen here yesterday for rash to the right forearm, this was believed to be poison sebastian with secondary infection. She was given Keflex, she went home, states that her rash has progressed and now encompasses the chest anterior abdomen and more on the right arm, unclear whether this is a progression of the poison sebastian or if this is an allergy to the cephalexin. She was around poison sebastian after her cut down a tree in the backyard she states. The initial rash began about one week ago. Severity: Moderate Associated Systoms: Denies Symptoms Allergies and Home Medications Allergies Coded Allergies: No Known Drug Allergies (Unverified , 11/10/16) Home Medications Cephalexin 500 Mg Capsule, 500 MG PO QID Prescribed by: NINO SUMNER on 02/21/19 3953 Patient Home Medication List Home Medication List Reviewed: Yes Review of Systems Review of Systems Constitutional: see HPI EENTM: see HPI Respiratory: no symptoms reported Cardiovascular: no symptoms reported Genitourinary: no symptoms reported Skin: see HPI Psychiatric/Neurological: No Symptoms Reported Hematologic/Lymphatic: No Symptoms Reported Past Wrltcxb-Zysghq-Cheaqj Hx Patient Social History Alcohol Use: Denies Use Number of Drinks Today: AA Alcohol Beverage of Choice: Beer Recreational Drug Use: No 2nd Hand Smoke Exposure: No Recent Foreign Travel: No Contact w/Someone Who Travel: No Recent Infectious Disease Expo: No Recent Hopitalizations: No Immunizations Up To Date Tetanus Booster (TDap): Unknown Date of Influenza Vaccine: Jan 25, 2015 Seasonal Allergies Seasonal Allergies: No Past Medical History Surgeries: Yes (LEFT KNEE X2 SCOPE, RIGHT KNEE SCOPE, c/s x4, gastric sleeve, TUMMY TUCK) Appendectomy, Section, Gallbladder, Hysterectomy, Oophorectomy, Orthopedic, Tubal Ligation Respiratory: No Currently Using CPAP: No Currently Using BIPAP: No Cardiac: Yes High Cholesterol Neurological: No Reproductive Disorders: No Female Reproductive Disorders: Denies [employer] 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 Sexually Transmitted Disease: No HIV/AIDS: No Genitourinary: Yes Kidney Infection, Bladder Infection, Kidney Stones, UTI-Chronic Gastrointestinal: Yes Chronic Diarrhea, Irritable Bowel Musculoskeletal: Yes Arthritis Endocrine: Yes Diabetes, Non-Insulin dep HEENT: No Loss of Vision: Bilateral Hearing Impairment: Denies Cancer: No Psychosocial: Yes Anxiety Integumentary: Yes Recent Skin Changes Blood Disorders: No Adverse Reaction/Blood Tranf: No Family Medical History No Pertinent Family Hx Physical Exam Vital Signs Vital Signs - First Documented 02/23/19 14:10 Temp 36.6 Pulse 83 Resp 19 B/P (MAP) 104/70 (81) Pulse Ox 97 O2 Delivery Room Air Capillary Refill : Less Than 3 Seconds Height, Weight, BMI Height: 5'2.00" Weight: 165lbs. 0oz. 74.934622fc; 30.00 BMI Method:Stated General Appearance: No Apparent Distress, WD/WN Eyes: Bilateral Eye Normal Inspection, Bilateral Eye PERRL, Bilateral Eye EOMI Neck: Full Range of Motion, Normal Inspection Respiratory: No Accessory Muscle Use, No Respiratory Distress Gastrointestinal: Non Tender, Soft Extremity: Normal Capillary Refill, Normal Inspection 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: Alert, Oriented x3 Skin: Normal Color, Rash (there is a rash in clusters about dime-sized the dorsal radial side of the forearm at the anterior upper arm on the right, similar appearing rash to the lateral torso and anterior abdomen, this does have the appearance of a rHUS dermatitis more so than wHEALS/urticaria.) Progress/Results/Core Measures Suspected Sepsis Recent Fever Within 48 Hours: No Infection Criteria Present: None New/Unexplained Altered Menta: No Sepsis Screen: No Definite Risk SIRS Temperature: Pulse: 83 Respiratory Rate: 19 Blood Pressure 104 /70 Mean: 81 Results/Orders My Orders Orders - JAELYN MORALES APRN Diphenhydramine Injection (Benadryl Inje (02/23/19 15:00) Dexamethasone Injection (Decadron Inject (02/23/19 15:00) Vital Signs/I&O 02/23/19 14:10 Temp 36.6 Pulse 83 Resp 19 B/P (MAP) 104/70 (81) Pulse Ox 97 O2 Delivery Room Air Capillary Refill : Less Than 3 Seconds Blood Pressure Mean: 81 POS Departure Impression Primary Impression: Rash and nonspecific skin eruption Disposition: 01 HOME, SELF-CARE Condition: Stable Departure-Patient Inst. Decision time for Depature: 15:07 Referrals: [facility]/ (PCP/Family) Primary Care Physician Patient Instructions: Skin Rash (DC) Add. Discharge Instructions: 1. Stop the cephalexin 2. Take the antihistamine hydroxyzine every 4 hours as needed for itching. Follow-up with your doctor on Monday. Return to ER for any worsening symptoms or fevers. All discharge instructions reviewed with patient and/or family. Voiced understanding. Scripts Hydroxyzine HCl (Hydroxyzine HCl) 25 Mg Tablet 25 MG PO Q4H, #14 TAB Prov: JAELYN MORALES APRN 02/23/19 JAELYN MORALES APRN Feb 23, 2019 15:08 POS
--- NOTE | 2019-02-23 15:23 | NUR ---
Pt reports itching has resolved
[2019-02-23 15:24] VITALS: BP 104/70
--- OUTSIDE RECORDS SUMMARY | 2019-03-20 23:10 | XMS REPORT ---
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 Active [id number] Problem Anxiety state, unspecified F41.1 Act flores 141669187 Problem Vasomotor symptoms due to menopause N95.1 Active [id number] ALLERGIES No Information ENCOUNTERS Encounter Location Date Diagnosis [place] [address] [address] Jun, Left hip pain M25.552 [facility] [address] [address] Mar, Fever R50.9 and Acute nasoph aryngitis J00 [facility] [address] [address] Mar, [place] [address] [address] Nov, Muscle ache M79.1 [place] [address] [address] Sep, Dysuria R30.0 [place] [address] [address] Aug, Vasomotor symptoms due to me nopause N95.1 ; Overweight (BMI 25.0- 29.9) E66.3 and Varicosities I86.8 [place] [address] [address] Jun, [facility] [address] [place] [address] Apr, Cough R05 and Influenza J11. 1 [facility] [address] [place] [id number] [place] [address] 06 Apr, 2017 Screening breast examination Z12.31 ; Breast tenderness in female N64.4 ; Other obesity due to excess calories E66.09 and Body mass index (BMI) of 31.0-31.9 in adult Z68.31 [facility] [address] [place] [id number] [place] [address] Apr, Gastroenteritis K52.9 [facility] [address] [place] [id number] [place] [id number] Mar, Dental examination Z01.20 an d Dental caries K02.9 [facility] [address] [address] Feb, Gum abscess K05.219 [facility] [address] [address] Feb, [place] [address] [address] Dec, Varicosities I86.8 [place] [address] [address] Sep, [place] [address] [address] Sep, [facility] [address] [address] Sep, Anxiety state, unspecified F 41.1 [place] [address] [address] Aug, Unspecified mood [affective] disorder F39 and Eating disorder, unspecified F50.9 [facility] [address] [address] Aug, Anxiety state, unspecified F 41.1 [place] [address] [place] [address] Jun, [place] [address] [place] [id number] [place] [address] Jun, Fatigue, unspecified type R5 3.83 [place] [address] [place] [id number] [place] [address] 07 Jun, 2016 Abdominal pain, left lower q uadrant R10.32 ; Candidiasis, cutaneous B37.2 ; Fatigue, unspecified type R53.83 ; Morbid (severe) obesity due to excess calories E66.01 ; General medical exam Z00.00 and Diverticulitis of large intestine without perforation or abscess without bleeding K57.32 [facility] [address] [place] [id number] [place] [address] 02 May, 2016 Left wrist pain M25.532 and Left wrist sprain, initial encounter S63.502A [place] [address] [place] [id number] [place] [address] 02 May, 2016 General medical exam Z00.00 [place] [address] [place] [id number] [place] [address] 12 Mar, 2016 Encounter for routine adult health examination with abnormal findings Z00.01 ; Body mass index (BMI) of 40.0-44.9 in adult Z68.41 ; Morbid (severe) obesity due to excess calories E66.01 ; History of IBS Z87.19 and Family history of colon cancer requiring screening colonoscopy Z80.0 [place] [address] [place] [id number] [place] [address] Oct, [place] [address] [address] Oct, Other acute postprocedural p ain G89.18 ; Pain in left knee M25.562 ; Family history of colon cancer requiring screening colonoscopy Z80.0 and Hyperpigmentation L81.9 [place] [address] [place] [address] May, [facility] [address] [address] May, Left knee injury S89.92XA [place] [address] [address] Apr, [facility] [address] [address] Apr, Left knee injury S89.92XA an d Varicosities I86.8 [place] [address] [address] Mar, [facility] [address] [place] [id number] [place] [address] Mar, Acute pain of left knee M25. 562 and Strain of left knee, initial encounter S86.912A [place] [address] [place] [id number] [place] [address] Mar, Lower abdominal tenderness R 10.819 and Breast tenderness N64.4 [place] [address] [place] [id number] [place] [address] Feb, [place] [address] [address] Feb, Well woman exam Z01.419 ; Va ginal discharge N89.8 ; Lower abdominal tenderness R10.819 [...] and Complex cyst of left ovary N83.29 [place] [address] [place] [id number] [place] [address] Feb, Abdominal pain R10.9 and Pel renetta pain R10.2 [facility] [address] [id number] [address] [place] [address] Feb, [facility] [address] [id number] [address] [place] [address] Feb, [facility] [address] [id number] [address] [place] [address] Feb, General medical exam Z00.00 ; Right upper quadrant pain R10.11 and History of borderline diabetes mellitus Z87.898 [facility] [address] [id number] [address] [place] [address] Feb, Right upper quadrant pain R1 0.11 [facility] [address] [id number] [address] [place] [address] 28 Jun, 2014 Lumbago 724.2 [facility] [address] [id number] [address] [place] [address] 14 Jun, 2014 [facility] [address] [id number] [address] [place] [address] Jun, [facility] [address] [facility] [id number] [address] [place] [address] May, [facility] [address] [id number] [address] [place] [address] May, [facility] [address] [id number] [address] [place] [address] Apr, [facility] [address] [id number] [address] [place] [address] Apr, [facility] [address] [facility] [id number] [address] [place] [address] Mar, [facility] [address] [facility] [id number] [address] [place] [address] Mar, [facility] [address] [id number] [address] [place] [address], [place] [address] Mar, [facility] [address] [id number] [address] [place] [address], [place] [address] Mar, [facility] [address] [id number] [address] [place] [address], [place] [address] Mar, [facility] [address] [id number] [address] [place] [address], [place] [address] Mar, [facility] [address] [id number] [address] [place] [address], [place] [address] Mar, [facility] [address] [id number] [address] [place] [address], [place] [address] Feb, [facility] [address] [id number] [address] [place] [address], [place] [address] Feb, [facility] [address] [id number] [address] [place] [address], [place] [address] Feb, [facility] [address] [id number] [address] [place] [address], [place] [address] Feb, [facility] [address] [id number] [address] [place] [address], [place] [address] Feb, [facility] [address] [id number] [address] [place] [address], [place] [address] Jan, [facility] [address] [id number] [address] [place] [address], [place] [address] Jan, [facility] [address] [id number] [address] [place] [address], [place] [address] Oct, [facility] [address] [id number] [address] [place] [address], [place] [address] Oct, [facility] [address] [id number] [address] [place] [address], [place] [address] Sep, [facility] [address] [id number] [address] [place] [address], [place] [address] Sep, [facility] [address] [id number] [address] [place] [address], [place] [address] Aug, [facility] [address] [id number] [address] [place] [address], [place] [address] Aug, [facility] [address] [id number] [address] [place] [address], [place] [address] Aug, [facility] [address] [id number] [address] [place] [address], [place] [address] Apr, [facility] [address] [id number] [address] [place] [address], [place] [address] Apr, [facility] [address] [id number] [address] [place] [address], [place] [address] Apr, [facility] [address] [id number] [address] [place] [address], [place] [address] Apr, [facility] [address] [id number] [address] [place] [address], [place] [address] Apr, [facility] [address] [id number] [address] [place] [address], [place] [address] Mar, [facility] [address] [id number] [address] [place] [address], [place] [address] Mar, [facility] [address] [id number] [address] [place] [address], [place] [address] Mar, [facility] [address] [id number] [address] [place] [address], [place] [address] Mar, [facility] [address] [id number] [address] [place] [address], [place] [address] Mar, [facility] [address] [id number] [address] [place] [address], [place] [address] Mar, [facility] [address] [id number] [address] [place] [address], [place] [address] Mar, [facility] [address] [id number] [address] [place] [address] Mar, [facility] [address] [id number] [address] [place] [address] Mar, [facility] [address] [id number] [address] [place] [address] Oct, [facility] [address] [id number] [address] [place] [address] July, [facility] [address] [id number] [address] [place] [address] July, [facility] [address] [id number] [address] [place] [address] Jun, [facility] [address] [id number] [address] [place] [address] May, [facility] [address] [id number] [address] [place] [address] Feb, [facility] [address] [id number] [address] [place] [address] Feb, [facility] [address] [id number] [address] [place] [address] July, [facility] [address] [id number] [address] [place] [address] Apr, [facility] [address] [id number] [address] [place] [address] Jan, IMMUNIZATIONS No Known Immunizations SOCIAL HISTORY Never Assessed REASON FOR VISIT PLAN OF CARE VITAL SIGNS MEDICATIONS No Known Medications RESULTS No Results PROCEDURES Procedure Date Ordered Result Body Site INJ METHYLPRDNISOLONE ACTAT 40 MG September 19, 2013 DRAIN/INJECT, JOINT/BURSA September 19, 2013 INSTRUCTIONS MEDICATIONS ADMINISTERED No Known Medications MEDICAL [...] History gall bladder and left ovary removed 09/13 16 Surgical History left leg vein stripping 10/2017 Surgical History jazmine peacock 01/2018 Hospitalization History Surgery and childbirth only
--- OUTSIDE RECORDS SUMMARY | 2019-03-20 23:10 | XMS REPORT ---
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 Active [id number] Problem Anxiety state, unspecified F41.1 Act flores [id number] Problem Vasomotor symptoms due to menopause N95.1 Active [id number] ALLERGIES No Information ENCOUNTERS Encounter Location Date Diagnosis [facility] [address] [address] Jun, Left hip pain M25.552 [facility] [address] [address] Mar, Fever R50.9 and Acute nasoph aryngitis J00 [facility] [address] [address] Mar, [facility] [address] [address] Nov, Muscle ache M79.1 [place] [address] [address] Sep, Dysuria R30.0 [place] [address] [address] Aug, Vasomotor symptoms due to me nopause N95.1 ; Overweight (BMI 25.0- 29.9) E66.3 and Varicosities I86.8 [facility] [address] [place] [id number] [place] [id number] Jun, [facility] [address] [place] [id number] [address] [place] [id number] Apr, Cough R05 and Influenza J11. 1 [place] [address] [address] Apr, Screening breast examination Z12.31 ; Breast tenderness in female N64.4 ; Other obesity due to excess calories E66.09 and Body mass index (BMI) of 31.0-31.9 in adult Z68.31 [facility] [address] [address] Apr, Gastroenteritis K52.9 [facility] [address] [id number] Mar, Dental examination Z01.20 an d Dental caries K02.9 [facility] [address] [address] Feb, Gum abscess K05.219 [place] [address] [address] Feb, [place] [address] [address] Dec, Varicosities I86.8 [place] [address] [address] Sep, [place] [address] [address] Sep, [place] [address] [address] Sep, Anxiety state, unspecified F 41.1 [place] [address] [place] [id number] [place] [address] Aug, Unspecified mood [affective] disorder F39 and Eating disorder, unspecified F50.9 [place] [address] [place] [id number] [place] [phone] Aug, Anxiety state, unspecified F 41.1 [place] [address] [address] 13 Jun, 2016 [place] [address] [address] Jun, Fatigue, unspecified type R5 3.83 [place] [address] [address] Jun, Abdominal pain, left lower q uadrant R10.32 ; Candidiasis, cutaneous B37.2 ; Fatigue, unspecified type R53.83 ; Morbid (severe) obesity due to excess calories E66.01 ; General medical exam Z00.00 and Diverticulitis of large intestine without perforation or abscess without bleeding K57.32 [facility] [address] [address] 02 May, 2016 Left wrist pain M25.532 and Left wrist sprain, initial encounter S63.502A [place] [address] [address] 02 May, 2016 General medical exam Z00.00 [place] [address] [address] 12 Mar, 2016 Encounter for routine adult health examination with abnormal findings Z00.01 ; Body mass index (BMI) of 40.0-44.9 in adult Z68.41 ; Morbid (severe) obesity due to excess calories E66.01 ; History of IBS Z87.19 and Family history of colon cancer requiring screening colonoscopy Z80.0 [place] [address] [place] [id number] [place] [id number] Oct, [place] [address] [address] Oct, Other acute postprocedural p ain G89.18 ; Pain in left knee M25.562 ; Family history of colon cancer requiring screening colonoscopy Z80.0 and Hyperpigmentation L81.9 [place] [address] [address] May, [facility] [address] [place] [id number] [place] [address] May, Left knee injury S89.92XA [place] [address] [address] Apr, [place] [address] [address] Apr, Left knee injury S89.92XA an d Varicosities I86.8 [place] [address] [address] Mar, [facility] [address] [address] Mar, Acute pain of left knee M25. 562 and Strain of left knee, initial encounter S86.912A [place] [address] [address] Mar, Lower abdominal tenderness R 10.819 and Breast tenderness N64.4 [place] [address] [place] [id number] [place] [address] Feb, [place] [address] [address] Feb, Well woman exam Z01.419 ; Va [...] left ovary N83.29 [facility] [address] [facility] [id number] [address] [place] [address] 16 Feb, 2015 Abdominal pain R10.9 and Pel renetta pain R10.2 [facility] [address] [facility] [id number] [address] [place] [address] Feb, [facility] [address] [facility] [id number] [address] [place] [id number] Feb, [facility] [address] [place] [id number] [place] [address] Feb, General medical exam Z00.00 ; Right upper quadrant pain R10.11 and History of borderline diabetes mellitus Z87.898 [facility] [address] [place] [id number] [place] [id number] Feb, Right upper quadrant pain R1 0.11 [facility] [address] [place] [id number] [place] [id number] 28 Jun, 2014 Lumbago 724.2 [facility] [address] [place] [id number] [place] [id number] 14 Jun, 2014 [facility] [address] [place] [id number] [place] [phone] Jun, [facility] [address] [place] [id number] [place] [phone] May, [facility] [address] [facility] [id number] [address] [place] [id number] May, [facility] [address] [place] [id number] [place] [phone] Apr, [facility] [address] [place] [id number] [place] [phone] Apr, [facility] [address] [place] [id number] [place] [phone] Mar, [facility] [address] [id number] [address] [place] [address], [place] [address] Mar, [facility] [address] [id number] [address] [place] [address], [place] [address] Mar, [facility] [address] [id number] [address] [place] [address], [place] [address] Mar, [facility] [address] [id number] [address] [place] [address], [place] [address] Mar, [facility] [address] [id number] [address] [place] [address], [place] [address] Mar, [facility] [address] [id number] [address] [place] [address], [place] [address] Mar, [facility] [address] [id number] [address] [place] [address], [place] [address] Feb, [facility] [address] [id number] [address] [place] [address], [place] [address] Feb, [facility] [address] [id number] [address] [place] [address], [place] [address] Feb, [facility] [address] [id number] [address] [place] [address], [place] [address] Feb, [facility] [address] [id number] [address] [place] [address], [place] [address] Feb, [facility] [address] [id number] [address] [place] [address], [place] [address] Jan, [facility] [address] [id number] [address] [place] [address], [place] [address] Jan, [facility] [address] [id number] [address] [place] [address], [place] [address] Oct, [facility] [address] [id number] [address] [place] [address], [place] [address] Oct, [facility] [address] [id number] [address] [place] [address], [place] [address] Sep, [facility] [address] [id number] [address] [place] [address], [place] [address] Sep, [facility] [address] [id number] [address] [place] [address], [place] [address] Aug, [facility] [address] [id number] [address] [place] [address], [place] [address] Aug, [facility] [address] [id number] [address] [place] [address], [place] [address] Aug, [facility] [address] [id number] [address] [place] [address], [place] [address] Apr, [facility] [address] [id number] [address] [place] [address], [place] [address] Apr, [facility] [address] [id number] [address] [place] [address], [place] [address] Apr, [facility] [address] [id number] [address] [place] [address], [place] [address] Apr, [facility] [address] [id number] [address] [place] [address], [place] [address] Apr, [facility] [address] [id number] [address] [place] [address], [place] [address] Mar, [facility] [address] [id number] [address] [place] [address], [place] [address] Mar, [facility] [address] [id number] [address] [place] [address], [place] [address] Mar, [facility] [address] [id number] [address] [place] [address], [place] [address] Mar, [facility] [address] [id number] [address] [place] [address], [place] [address] Mar, [facility] [address] [id number] [address] [place] [address], [place] [address] Mar, [facility] [address] [id number] [address] [place] [id number] Mar, [facility] [address] [id number] [address] [place] [phone] Mar, [facility] [address] [id number] [address] [place] [phone] Mar, [facility] [address] [id number] [address] [place] [phone] Oct, [facility] [address] [id number] [address] [place] [id number] July, [facility] [address] [id number] [address] [place] [id number] July, [facility] [address] [id number] [address] [place] [id number] Jun, [facility] [address] [id number] [address] [place] [id number] May, [facility] [address] [id number] [address] [place] [phone] Feb, [facility] [address] [id number] [address] [place] [id number] Feb, [facility] [address] [id number] [address] [place] [id number] July, [facility] [address] [id number] [address] [place] [phone] Apr, [facility] [address] [id number] [address] [place] [phone] Jan, IMMUNIZATIONS No Known Immunizations SOCIAL HISTORY Never Assessed REASON FOR VISIT PLAN OF CARE VITAL SIGNS Height 62 in 2014-05-01 Weight 233.61 lbs 2014-05-01 Temperature 97.4 degrees Fahrenheit 2014-05-01 Heart Rate 80 bpm 2014-05-01 Respiratory Rate 18 2014-05-01 Blood pressure systolic 118 mmHg 2014-05-01 Blood pressure diastolic 74 mmHg 2014-05-01 MEDICATIONS No Known Medications RESULTS No Results [...]
--- OUTSIDE RECORDS SUMMARY | 2019-03-20 23:11 | XMS REPORT ---
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 Active [id number] Problem Anxiety state, unspecified F41.1 Act [place] [id number] Problem Vasomotor symptoms due to menopause N95.1 Active [id number] ALLERGIES No Information ENCOUNTERS Encounter Location Date Diagnosis [facility] [place] [address] [address] Jun, Left hip pain M25.552 [facility] [address] [address] Mar, Fever R50.9 and Acute nasoph aryngitis J00 [facility] [address] [address] Mar, [facility] [place] [address] [address] Nov, Muscle ache M79.1 [place] [address] [address] Sep, Dysuria R30.0 [place] [address] [address] Aug, Vasomotor symptoms due to me nopause N95.1 ; Overweight (BMI 25.0- 29.9) E66.3 and Varicosities I86.8 [facility] [place] [address] [place] [id number] [place] [phone] Jun, [facility] [address] [place] [id number] [place] [address] Apr, Cough R05 and Influenza J11. 1 [place] [address] [address] Apr, Screening breast examination Z12.31 ; Breast tenderness in female N64.4 ; Other obesity due to excess calories E66.09 and Body mass index (BMI) of 31.0-31.9 in adult Z68.31 [facility] [address] [address] Apr, Gastroenteritis K52.9 [facility] [address] [id number] Mar, Dental examination Z01.20 an d Dental caries K02.9 [facility] [address] [address] Feb, Gum abscess K05.219 [place] [address] [address] Feb, [place] [address] [address] Dec, Varicosities I86.8 [place] [address] [address] Sep, [place] [address] [address] Sep, [place] [address] [address] Sep, Anxiety state, unspecified F 41.1 [place] [address] [place] [id number] [place] [address] Aug, Unspecified mood [affective] disorder F39 and Eating disorder, unspecified F50.9 [place] [address] [place] [id number] [place] [address] Aug, Anxiety state, unspecified F 41.1 [place] [address] [address] 13 Jun, 2016 [place] [address] [address] Jun, Fatigue, unspecified type R5 3.83 [place] [address] [address] Jun, Abdominal pain, left lower q uadrant R10.32 ; Candidiasis, cutaneous B37.2 ; Fatigue, unspecified type R53.83 ; Morbid (severe) obesity due to excess calories E66.01 ; General medical exam Z00.00 and Diverticulitis of large intestine without perforation or abscess without bleeding K57.32 [facility] [address] [address] 02 May, 2016 Left wrist pain M25.532 and Left wrist sprain, initial encounter S63.502A [place] [address] [address] 02 May, 2016 General medical exam Z00.00 [place] [address] [address] 12 Mar, 2016 Encounter for routine adult health examination with abnormal findings Z00.01 ; Body mass index (BMI) of 40.0-44.9 in adult Z68.41 ; Morbid (severe) obesity due to excess calories E66.01 ; History of IBS Z87.19 and Family history of colon cancer requiring screening colonoscopy Z80.0 [place] [address] [place] [id number] [address] [place] [address] Oct, [place] [address] [address] Oct, Other acute postprocedural p ain G89.18 ; Pain in left knee M25.562 ; Family history of colon cancer requiring screening colonoscopy Z80.0 and Hyperpigmentation L81.9 [place] [address] [address] May, [facility] [place] [address] [place] [id number] [address] [place] [address] May, Left knee injury S89.92XA [place] [address] [address] Apr, [place] [address] [address] Apr, Left knee injury S89.92XA an d Varicosities I86.8 [place] [address] [address] Mar, [facility] [address] [address] Mar, Acute pain of left knee M25. 562 and Strain of left knee, initial encounter S86.912A [place] [address] [address] Mar, Lower abdominal tenderness R 10.819 and Breast tenderness N64.4 [place] [address] [place] [id number] [address] [place] [address] Feb, [place] [address] [address] Feb, Well woman exam Z01.419 ; Va [...] and Complex cyst of left ovary N83.29 [facility] [place] [address] [facility] [id number] [address] [place] [address] 16 Feb, 2015 Abdominal pain R10.9 and Pel renetta pain R10.2 [facility] [place] [address] [facility] [id number] [address] [place] [address] Feb, [facility] [place] [address] [facility] [id number] [address] [place] [phone] Feb, [facility] [place] [address] [place] [id number] [place] [address] Feb, General medical exam Z00.00 ; Right upper quadrant pain R10.11 and History of borderline diabetes mellitus Z87.898 [facility] [place] [address] [place] [id number] [place] [address] Feb, Right upper quadrant pain R1 0.11 [facility] [place] [address] [place] [id number] [place] [address] 28 Jun, 2014 Lumbago 724.2 [facility] [place] [address] [place] [id number] [place] [id number] 14 Jun, 2014 [facility] [place] [address] [place] [id number] [place] [phone] Jun, [facility] [place] [address] [place] [id number] [place] [phone] May, [facility] [place] [address] [facility] [id number] [address] [place] [id number] May, [facility] [place] [address] [place] [id number] [place] [phone] Apr, [facility] [place] [address] [place] [id number] [place] [phone] Apr, [facility] [place] [address] [place] [id number] [place] [phone] Mar, [facility] [address] [id number] [address] [place] [address], [place] [address] Mar, [facility] [address] [id number] [address] [place] [address], [place] [address] Mar, [facility] [address] [id number] [address] [place] [address], [place] [address] Mar, [facility] [address] [id number] [address] [place] [address], [place] [address] Mar, [facility] [address] [id number] [address] [place] [address], [place] [address] Mar, [facility] [address] [id number] [address] [place] [address], [place] [address] Mar, [facility] [address] [id number] [address] [place] [address], [place] [address] Feb, [facility] [address] [id number] [address] [place] [address], [place] [address] Feb, [facility] [address] [id number] [address] [place] [address], [place] [address] Feb, [facility] [address] [id number] [address] [place] [address], [place] [address] Feb, [facility] [address] [id number] [address] [place] [address], [place] [address] Feb, [facility] [address] [id number] [address] [place] [address], [place] [address] Jan, [facility] [address] [id number] [address] [place] [address], [place] [address] Jan, [facility] [address] [id number] [address] [place] [address], [place] [address] Oct, [facility] [address] [id number] [address] [place] [address], [place] [address] Oct, [facility] [address] [id number] [address] [place] [address], [place] [address] Sep, [facility] [address] [id number] [address] [place] [address], [place] [address] Sep, [facility] [address] [id number] [address] [place] [address], [place] [address] Aug, [facility] [address] [id number] [address] [place] [address], [place] [address] Aug, [facility] [address] [id number] [address] [place] [address], [place] [address] Aug, [facility] [address] [id number] [address] [place] [address], [place] [address] Apr, [facility] [address] [id number] [address] [place] [address], [place] [address] Apr, [facility] [address] [id number] [address] [place] [address], [place] [address] Apr, [facility] [address] [id number] [address] [place] [address], [place] [address] Apr, [facility] [address] [id number] [address] [place] [address], [place] [address] Apr, [facility] [address] [id number] [address] [place] [address], [place] [address] Mar, [facility] [address] [id number] [address] [place] [address], [place] [address] Mar, [facility] [address] [id number] [address] [place] [address], [place] [address] Mar, [facility] [address] [id number] [address] [place] [address], [place] [address] Mar, [facility] [address] [id number] [address] [place] [address], [place] [address] Mar, [facility] [address] [id number] [address] [place] [address], [place] [address] Mar, [facility] [address] [id number] [address] [place] [address] Mar, [facility] [place] [address] [id number] [address] [place] [address] Mar, [facility] [place] [address] [id number] [address] [place] [id number] Mar, [facility] [place] [address] [id number] [address] [place] [address] Oct, [facility] [place] [address] [id number] [address] [place] [phone] July, [facility] [place] [address] [id number] [address] [place] [id number] July, [facility] [place] [address] [id number] [address] [place] [id number] Jun, [facility] [place] [address] [id number] [address] [place] [phone] May, [facility] [place] [address] [id number] [address] [place] [phone] Feb, [facility] [place] [address] [id number] [address] [place] [phone] Feb, [facility] [place] [address] [id number] [address] [place] [phone] July, [facility] [place] [address] [id number] [address] [place] [phone] Apr, [facility] [place] [address] [id number] [address] [place] [phone] Jan, IMMUNIZATIONS No Known Immunizations SOCIAL HISTORY Never Assessed REASON FOR VISIT PLAN OF CARE VITAL SIGNS Height 62 in 2014-03-04 Weight 228.3 lbs 2014-03-04 Temperature 97 degrees Fahrenheit 2014-03-04 Heart Rate 82 bpm 2014-03-04 Respiratory Rate 18 2014-03-04 Blood pressure systolic 120 mmHg 2014-03-04 Blood pressure diastolic 78 mmHg 2014-03-04 MEDICATIONS No Known Medications RESULTS No Results PROCEDURES Procedure Date Ordered Result Body Site COMPLETE CBC W/AUTO DIFF WBC Mar 04, 2014 MYCOPLASMA ANTIBODY Mar 04, 2014 HETEROPHILE ANTIBODIES Mar 04, 2014 URINALYSIS, AUTO, W/O SCOPE Mar 04, 2014 VENIPUNCT, ROUTINE* Mar 04, 2014 INSTRUCTIONS MEDICATIONS ADMINISTERED No Known Medications MEDICAL [...]
--- OUTSIDE RECORDS SUMMARY | 2019-03-20 23:11 | XMS REPORT ---
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 [address] [address] Mar, [place] [address] [address] Nov, Muscle ache M79.1 [place] [address] [address] Sep, Dysuria R30.0 [place] [address] [address] Aug, Vasomotor symptoms due to me nopause N95.1 ; Overweight (BMI 25.0- 29.9) E66.3 and Varicosities I86.8 [facility] [address] [address] Jun, [facility] [address] [address] Apr, Cough R05 and Influenza J11. 1 [facility] [address] [place] [id number] [address] [place] [address] 06 Apr, 2017 Screening breast examination Z12.31 ; Breast tenderness in female N64.4 ; Other obesity due to excess calories E66.09 and Body mass index (BMI) of 31.0-31.9 in adult Z68.31 [facility] [address] [address] 01 Apr, 2017 Gastroenteritis K52.9 [facility] [address] [facility] [id number] [address] [place] [id number] Mar, Dental examination Z01.20 an d Dental caries K02.9 [facility] [address] [address] Feb, Gum abscess K05.219 [place] [address] [address] Feb, [place] [address] [address] Dec, Varicosities I86.8 [place] [address] [address] Sep, [place] [address] [address] Sep, [place] [address] [address] Sep, Anxiety state, unspecified F 41.1 [place] [address] [address] Aug, Unspecified mood [affective] disorder F39 and Eating disorder, unspecified F50.9 [place] [address] [place] [id number] [address] [place] [address] Aug, Anxiety state, unspecified F 41.1 [place] [address] [address] 13 Jun, 2016 [facility] [address] [facility] [id number] [address] [place] [id number] 11 Jun, 2016 Fatigue, unspecified type R5 3.83 [place] [address] [facility] [id number] [address] [place] [id number] 07 Jun, 2016 Abdominal pain, left lower q uadrant R10.32 ; Candidiasis, cutaneous B37.2 ; Fatigue, unspecified type R53.83 ; Morbid (severe) obesity due to excess calories E66.01 ; General medical exam Z00.00 and Diverticulitis of large intestine without perforation or abscess without bleeding K57.32 [facility] [address] [facility] [id number] [address] [place] [id number] 02 May, 2016 Left wrist pain M25.532 and Left wrist sprain, initial encounter S63.502A [place] [address] [place] [id number] [address] [place] [address] 02 May, 2016 General medical exam Z00.00 [place] [address] [place] [id number] [address] [place] [id number] 12 Mar, 2016 Encounter for routine adult health examination with abnormal findings Z00.01 ; Body mass index (BMI) of 40.0-44.9 in adult Z68.41 ; Morbid (severe) obesity due to excess calories E66.01 ; History of IBS Z87.19 and Family history of colon cancer requiring screening colonoscopy Z80.0 [place] [address] [place] [id number] [address] [place] [address] Oct, [place] [address] [facility] [id number] [address] [place] [address] Oct, Other acute postprocedural p ain G89.18 ; Pain in left knee M25.562 ; Family history of colon cancer requiring screening colonoscopy Z80.0 and Hyperpigmentation L81.9 [place] [address] [place] [id number] [address] [place] [address] May, [place] [address] [place] [id number] [address] [place] [address] May, Left knee injury S89.92XA [place] [address] [address] Apr, [place] [address] [address] Apr, Left knee injury S89.92XA an d Varicosities I86.8 [place] [address] [address] Mar, [facility] [address] [address] Mar, Acute pain of left knee M25. 562 and Strain of left knee, initial encounter S86.912A [place] [address] [address] Mar, Lower abdominal tenderness R 10.819 and Breast tenderness N64.4 [place] [address] [address] Feb, [place] [address] [address] Feb, Well woman exam Z01.419 ; Va [...] and Complex cyst of left ovary N83.29 [place] [address] [place] [id number] [address] [place] [address] Feb, Abdominal pain R10.9 and Pel renetta pain R10.2 [facility] [address] [id number] [address] [place] [id number] Feb, [facility] [address] [id number] [address] [place] [address] Feb, [facility] [address] [id number] [address] [place] [address] Feb, General medical exam Z00.00 ; Right upper quadrant pain R10.11 and History of borderline diabetes mellitus Z87.898 [facility] [address] [id number] [address] [place] [address] Feb, Right upper quadrant pain R1 0.11 [facility] [address] [id number] [address] [place] [id number] 28 Jun, 2014 Lumbago 724.2 [facility] [address] [id number] [address] [place] [id number] 14 Jun, 2014 [facility] [address] [id number] [address] [place] [id number] Jun, [facility] [address] [id number] [address] [place] [id number] May, [facility] [address] [id number] [address] [place] [id number] May, [facility] [address] [id number] [address] [place] [id number] Apr, [facility] [address] [id number] [address] [place] [id number] Apr, [facility] [address] [id number] [address] [place] [id number] Mar, [facility] [address] [id number] [address] [place] [id number] Mar, [facility] [address] [id number] [address] [place] [id number] Mar, [facility] [address] [id number] [address] [place] [address], [place] [address] Mar, [facility] [address] [id number] [address] [place] [address], [place] [address] Mar, [facility] [address] [id number] [address] [place] [address], [place] [address] Mar, [facility] [address] [id number] [address] [place] [address], [place] [address] Mar, [facility] [address] [id number] [address] [place] [address], [place] [address] Feb, [facility] [address] [id number] [address] [place] [address], [place] [address] Feb, [facility] [address] [id number] [address] [place] [address], [place] [address] Feb, [facility] [address] [id number] [address] [place] [address], [place] [address] Feb, [facility] [address] [id number] [address] [place] [address], [place] [address] Feb, [facility] [address] [id number] [address] [place] [address], [place] [address] Jan, [facility] [address] [id number] [address] [place] [address], [place] [address] Jan, [facility] [address] [id number] [address] [place] [address], [place] [address] Oct, [facility] [address] [id number] [address] [place] [address], [place] [address] Oct, [facility] [address] [id number] [address] [place] [address], [place] [address] Sep, [facility] [address] [id number] [address] [place] [address], [place] [address] Sep, [facility] [address] [id number] [address] [place] [address], [place] [address] Aug, [facility] [address] [id number] [address] [place] [address], [place] [address] Aug, [facility] [address] [id number] [address] [place] [address], [place] [address] Aug, [facility] [address] [id number] [address] [place] [address], [place] [address] Apr, [facility] [address] [id number] [address] [place] [address], [place] [address] Apr, [facility] [address] [id number] [address] [place] [address], [place] [address] Apr, [facility] [address] [id number] [address] [place] [address], [place] [address] Apr, [facility] [address] [id number] [address] [place] [address], [place] [address] Apr, [facility] [address] [id number] [address] [place] [address], [place] [address] Mar, [facility] [address] [id number] [address] [place] [address], [place] [address] Mar, [facility] [address] [id number] [address] [place] [address], [place] [address] Mar, [facility] [address] [id number] [address] [place] [address], [place] [address] Mar, [facility] [address] [id number] [address] [place] [address], [place] [address] Mar, [facility] [address] [id number] [address] [place] [address], [place] [address] Mar, [facility] [address] [id number] [address] [place] [address], [place] [address] Mar, [facility] [address] [id number] [address] [place] [address], [place] [address] Mar, [facility] [address] [id number] [address] [place] [phone] Mar, [facility] [address] [id number] [address] [place] [address] Oct, [facility] [address] [id number] [address] [place] [id number] July, [facility] [address] [id number] [address] [place] [id number] July, [facility] [address] [id number] [address] [place] [id number] Jun, [facility] [address] [id number] [address] [place] [address] May, [facility] [address] [id number] [address] [place] [id number] Feb, [facility] [address] [id number] [address] [place] [id number] Feb, [facility] [address] [id number] [address] [place] [id number] July, [facility] [address] [id number] [address] [place] [phone] Apr, [facility] [address] [id number] [address] [place] [id number] Jan, IMMUNIZATIONS No Known Immunizations SOCIAL HISTORY Never Assessed REASON FOR VISIT EMR-[facility] PLAN OF CARE VITAL SIGNS MEDICATIONS No [...] left leg vein stripping 10/2017 Surgical History tummy tuck 01/2018 Hospitalization History Surgery and childbirth only
--- OUTSIDE RECORDS SUMMARY | 2019-03-20 23:11 | XMS REPORT ---
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 [address] [address] Mar, Fever R50.9 and Acute nasoph aryngitis J00 [facility] [address] [address] Mar, [place] [address] [address] Nov, Muscle ache M79.1 [place] [address] [address] Sep, Dysuria R30.0 [place] [address] [address] Aug, Vasomotor symptoms due to me nopause N95.1 ; Overweight (BMI 25.0- 29.9) E66.3 and Varicosities I86.8 [facility] [address] [facility] [id number] [address] [place] [address] Jun, [facility] [address] [place] [id number] [place] [address] 21 Apr, 2017 Cough R05 and Influenza J11. 1 [facility] [address] [address] 06 Apr, 2017 Screening breast examination Z12.31 ; Breast tenderness in female N64.4 ; Other obesity due to excess calories E66.09 and Body mass index (BMI) of 31.0-31.9 in adult Z68.31 [facility] [address] [address] 01 Apr, 2017 Gastroenteritis K52.9 [facility] [address] [place] [id number] [place] [id number] Mar, Dental examination Z01.20 an d Dental caries K02.9 [facility] [address] [address] Feb, Gum abscess K05.219 [place] [address] [address] Feb, [place] [address] [address] Dec, Varicosities I86.8 [place] [address] [address] Sep, [place] [address] [address] Sep, [place] [address] [address] Sep, Anxiety state, unspecified F 41.1 [place] [address] [address] Aug, Unspecified mood [affective] disorder F39 and Eating disorder, unspecified F50.9 [place] [address] [place] [id number] [place] [address] 16 Aug, 2016 Anxiety state, unspecified F 41.1 [place] [address] [address] Jun, [place] [address] [address] Jun, Fatigue, unspecified type R5 3.83 [place] [address] [address] Jun, Abdominal pain, left lower q uadrant R10.32 ; Candidiasis, cutaneous B37.2 ; Fatigue, unspecified type R53.83 ; Morbid (severe) obesity due to excess calories E66.01 ; General medical exam Z00.00 and Diverticulitis of large intestine without perforation or abscess without bleeding K57.32 [facility] [address] [address] 02 May, 2016 Left wrist pain M25.532 and Left wrist sprain, initial encounter S63.502A [address] [address] 02 May, 2016 General medical exam Z00.00 [place] [address] [address] Mar, Encounter for routine adult health examination with abnormal findings Z00.01 ; Body mass index (BMI) of 40.0-44.9 in adult Z68.41 ; Morbid (severe) obesity due to excess calories E66.01 ; History of IBS Z87.19 and Family history of colon cancer requiring screening colonoscopy Z80.0 [place] [address] [address] Oct, [place] [address] [address] Oct, Other acute postprocedural p ain G89.18 ; Pain in left knee M25.562 ; Family history of colon cancer requiring screening colonoscopy Z80.0 and Hyperpigmentation L81.9 [place] [address] [place] [id number] [place] [address] May, [facility] [address] [place] [id number] [address] [place] [address] May, Left knee injury S89.92XA [place] [address] [address] Apr, [place] [address] [address] Apr, Left knee injury S89.92XA an d Varicosities I86.8 [place] [address] [place] [id number] [place] [address] Mar, [facility] [address] [place] [id number] [place] [address] Mar, Acute pain of left knee M25. 562 and Strain of left knee, initial encounter S86.912A [place] [address] [place] [id number] [place] [address] Mar, Lower abdominal tenderness R 10.819 and Breast tenderness N64.4 [place] [address] [place] [id number] [place] [address] Feb, [place] [address] [place] [id number] [place] [address] Feb, Well woman exam Z01.419 ; Va [...] and Complex cyst of left ovary N83.29 [facility] [address] [facility] [id number] [address] [place] [address] 16 Feb, 2015 Abdominal pain R10.9 and Pel renetta pain R10.2 [facility] [address] [facility] [id number] [address] [place] [address] 11 Feb, 2015 [facility] [address] [facility] [id number] [address] [place] [address] Feb, [facility] [address] [facility] [id number] [address] [place] [address] 09 Feb, 2015 General medical exam Z00.00 ; Right upper quadrant pain R10.11 and History of borderline diabetes mellitus Z87.898 [facility] [address] [facility] [id number] [address] [place] [address] 09 Feb, 2015 Right upper quadrant pain R1 0.11 [facility] [address] [facility] [id number] [address] [place] [address] 28 Jun, 2014 Lumbago 724.2 [facility] [address] [facility] [id number] [address] [place] [address] 14 Jun, 2014 [facility] [address] [place] [id number] [address] [place] [address] 13 Jun, 2014 [facility] [address] [facility] [id number] [address] [place] [address] May, [facility] [address] [facility] [id number] [address] [place] [address] May, [facility] [address] [facility] [id number] [address] [place] [address] Apr, [facility] [address] [facility] [id number] [address] [place] [address] Apr, [facility] [address] [facility] [id number] [address] [place] [address] Mar, [facility] [address] [id number] [address] [place] [address], [place] [address] Mar, [facility] [address] [id number] [address] [place] [address], [place] [address] Mar, [facility] [address] [id number] [address] [place] [address], [place] [address] Mar, [facility] [address] [id number] [address] [place] [address], [place] [address] Mar, [facility] [address] [id number] [address] [place] [address], [place] [address] Mar, [facility] [address] [id number] [address] [place] [address], [place] [address] Mar, [facility] [address] [id number] [address] [place] [address], [place] [address] Feb, [facility] [address] [id number] [address] [place] [address], [place] [address] Feb, [facility] [address] [id number] [address] [place] [address], [place] [address] Feb, [facility] [address] [id number] [address] [place] [address], [place] [address] Feb, [facility] [address] [id number] [address] [place] [address], [place] [address] Feb, [facility] [address] [id number] [address] [place] [address], [place] [address] Jan, [facility] [address] [id number] [address] [place] [address], [place] [address] Jan, [facility] [address] [id number] [address] [place] [address], [place] [address] Oct, [facility] [address] [id number] [address] [place] [address], [place] [address] Oct, [facility] [address] [id number] [address] [place] [address], [place] [address] Sep, [facility] [address] [id number] [address] [place] [address], [place] [address] Sep, [facility] [address] [id number] [address] [place] [address], [place] [address] Aug, [facility] [address] [id number] [address] [place] [address], [place] [address] Aug, [facility] [address] [id number] [address] [place] [address], [place] [address] Aug, [facility] [address] [id number] [address] [place] [address], [place] [address] Apr, [facility] [address] [id number] [address] [place] [address], [place] [address] Apr, [facility] [address] [id number] [address] [place] [address], [place] [address] Apr, [facility] [address] [id number] [address] [place] [address], [place] [address] Apr, [facility] [address] [id number] [address] [place] [address], [place] [address] Apr, [facility] [address] [id number] [address] [place] [address], [place] [address] Mar, [facility] [address] [id number] [address] [place] [address], [place] [address] Mar, [facility] [address] [id number] [address] [place] [address], [place] [address] Mar, [facility] [address] [id number] [address] [place] [address], [place] [address] Mar, [facility] [address] [id number] [address] [place] [address], [place] [address] Mar, [facility] [address] [id number] [address] [place] [address], [place] [address] Mar, [facility] [address] [id number] [address] [place] [address] Mar, [facility] [address] [id number] [address] [place] [address] Mar, [facility] [address] [id number] [address] [place] [address] Mar, [facility] [address] [id number] [address] [place] [address] Oct, [facility] [address] [id number] [address] [place] [address] July, [facility] [address] [id number] [address] [place] [phone] July, [facility] [address] [id number] [address] [place] [address] Jun, [facility] [address] [id number] [address] [place] [address] May, [facility] [address] [id number] [address] [place] [address] Feb, [facility] [address] [id number] [address] [place] [phone] Feb, [facility] [address] [id number] [address] [place] [address] July, [facility] [address] [id number] [address] [place] [phone] Apr, [facility] [address] [id number] [address] [place] [phone] Jan, IMMUNIZATIONS No Known Immunizations SOCIAL HISTORY Never Assessed REASON FOR VISIT PLAN OF CARE VITAL SIGNS Height 62 in 2014-02-03 Weight 224 lbs 2014-02-03 Temperature 97 degrees Fahrenheit 2014-02-03 Heart Rate 86 bpm 2014-02-03 Blood pressure systolic 115 mmHg 2014-02-03 Blood pressure diastolic 67 mmHg 2014-02-03 MEDICATIONS No Known Medications RESULTS No Results [...]
--- OUTSIDE RECORDS SUMMARY | 2019-03-20 23:11 | XMS REPORT ---
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 Active [id number] Problem Anxiety state, unspecified F41.1 Act flores [id number] Problem Vasomotor symptoms due to menopause N95.1 Active [id number] ALLERGIES No Information ENCOUNTERS Encounter Location Date Diagnosis [place] [address] [address] July, [place] [address] [address] Jun, Left hip pain M25.552 [facility] [address] [address] Mar, Fever R50.9 and Acute nasoph aryngitis J00 [facility] [address] [address] Mar, [place] [address] [address] Nov, Muscle ache M79.1 [place] [address] [address] Sep, Dysuria R30.0 [place] [address] [address] Aug, Vasomotor symptoms due to me nopause N95.1 ; Overweight (BMI 25.0- 29.9) E66.3 and Varicosities I86.8 [facility] [address] [facility] [id number] [address] [place] [address] Jun, [facility] [address] [facility] [id number] [address] [place] [address] Apr, Cough R05 and Influenza J11. 1 [place] [address] [address] [place] [id number] [address] [place] [address] Apr, Screening breast examination Z12.31 ; Breast tenderness in female N64.4 ; Other obesity due to excess calories E66.09 and Body mass index (BMI) of 31.0-31.9 in adult Z68.31 [facility] [address] [facility] [id number] [address] [place] [address] 01 Apr, 2017 Gastroenteritis K52.9 [facility] [id number] [place] [id number] Mar, Dental examination Z01.20 an d Dental caries K02.9 [facility] [address] [facility] [id number] [address] [place] [address] Feb, Gum abscess K05.219 [place] [address] [address] Feb, [place] [address] [place] [id number] [place] [address] Dec, Varicosities I86.8 [place] [address] [place] [address] Sep, [place] [address] [place] [id number] [address] [place] [address] Sep, [place] [address] [address] Sep, Anxiety state, unspecified F 41.1 [place] [address] [address] [place] [id number] [address] [place] [address] Aug, Unspecified mood [affective] disorder F39 and Eating disorder, unspecified F50.9 [place] [address] [address] [place] [id number] [address] [place] [address] 16 Aug, 2016 Anxiety state, unspecified F 41.1 [place] [address] [address] 13 Jun, 2016 [place] [address] [address] Jun, Fatigue, unspecified type R5 3.83 [place] [address] [address] 07 Jun, 2016 Abdominal pain, left lower q uadrant R10.32 ; Candidiasis, cutaneous B37.2 ; Fatigue, unspecified type R53.83 ; Morbid (severe) obesity due to excess calories E66.01 ; General medical exam Z00.00 and Diverticulitis of large intestine without perforation or abscess without bleeding K57.32 [facility] [address] [address] 02 May, 2016 Left wrist pain M25.532 and Left wrist sprain, initial encounter S63.502A [place] [address] [address] 02 May, 2016 General medical exam Z00.00 [place] [address] [address] Mar, Encounter for routine adult health examination with abnormal findings Z00.01 ; Body mass index (BMI) of 40.0-44.9 in adult Z68.41 ; Morbid (severe) obesity due to excess calories E66.01 ; History of IBS Z87.19 and Family history of colon cancer requiring screening colonoscopy Z80.0 [place] [address] [address] [place] [id number] [address] [place] [address] Oct, [place] [address] [place] [id number] [address] [place] [address] Oct, Other acute postprocedural p ain G89.18 ; Pain in left knee M25.562 ; Family history of colon cancer requiring screening colonoscopy Z80.0 and Hyperpigmentation L81.9 [place] [address] [address] May, [facility] [address] [place] [id number] [address] [place] [address] May, Left knee injury S89.92XA [place] [address] [address] Apr, [place] [address] [address] Apr, Left knee injury S89.92XA an d Varicosities I86.8 [place] [address] [address] Mar, [facility] [address] [address] Mar, Acute pain of left knee M25. 562 and Strain of left knee, initial encounter S86.912A [place] [address] [address] Mar, Lower abdominal tenderness R 10.819 and Breast tenderness N64.4 [place] [address] [place] [id number] [address] [place] [address] Feb, [place] [address] [address] Feb, Well woman exam Z01.419 ; Va [...] and Complex cyst of left ovary N83.29 [facility] [address] [facility] [id number] [address] [place] [address] 16 Feb, 2015 Abdominal pain R10.9 and Pel renetta pain R10.2 [facility] [address] [facility] [id number] [address] [place] [address] Feb, [facility] [address] [place] [id number] [place] [address] Feb, [facility] [address] [place] [id number] [place] [address] 09 Feb, 2015 General medical exam Z00.00 ; Right upper quadrant pain R10.11 and History of borderline diabetes mellitus Z87.898 [facility] [address] [place] [id number] [address] [place] [address] Feb, Right upper quadrant pain R1 0.11 [facility] [address] [place] [id number] [address] [place] [address] 28 Jun, 2014 Lumbago 724.2 [facility] [address] [address] 14 Jun, 2014 [facility] [address] [place] [id number] [address] [place] [address] Jun, [facility] [address] [place] [id number] [address] [place] [address] May, [facility] [address] [place] [id number] [address] [place] [address] May, [facility] [address] [place] [id number] [address] [place] [address] Apr, [facility] [address] [place] [id number] [address] [place] [address] Apr, [facility] [address] [place] [id number] [address] [place] [address] Mar, [facility] [address] [id number] [address] [place] [address], [place] [address] Mar, [facility] [address] [id number] [address] [place] [address], [place] [address] Mar, [facility] [address] [id number] [address] [place] [address], [place] [address] Mar, [facility] [address] [id number] [address] [place] [address], [place] [address] Mar, [facility] [address] [id number] [address] [place] [address], [place] [address] Mar, [facility] [address] [id number] [address] [place] [address], [place] [address] Mar, [facility] [address] [id number] [address] [place] [address], [place] [address] Feb, [facility] [address] [id number] [address] [place] [address], [place] [address] Feb, [facility] [address] [id number] [address] [place] [address], [place] [address] Feb, [facility] [address] [id number] [address] [place] [address], [place] [address] Feb, [facility] [address] [id number] [address] [place] [address], [place] [address] Feb, [facility] [address] [id number] [address] [place] [address], [place] [address] Jan, [facility] [address] [id number] [address] [place] [address], [place] [address] Jan, [facility] [address] [id number] [address] [place] [address], [place] [address] Oct, [facility] [address] [id number] [address] [place] [address], [place] [address] Oct, [facility] [address] [id number] [address] [place] [address], [place] [address] Sep, [facility] [address] [id number] [address] [place] [address], [place] [address] Sep, [facility] [address] [id number] [address] [place] [address], [place] [address] Aug, [facility] [address] [id number] [address] [place] [address], [place] [address] Aug, [facility] [address] [id number] [address] [place] [address], [place] [address] Aug, [facility] [address] [id number] [address] [place] [address], [place] [address] Apr, [facility] [address] [id number] [address] [place] [address], [place] [address] Apr, [facility] [address] [id number] [address] [place] [address], [place] [address] Apr, [facility] [address] [id number] [address] [place] [address], [place] [address] Apr, [facility] [address] [id number] [address] [place] [address], [place] [address] Apr, [facility] [address] [id number] [address] [place] [address], [place] [address] Mar, [facility] [address] [id number] [address] [place] [address], [place] [address] Mar, [facility] [address] [id number] [address] [place] [address], [place] [address] Mar, [facility] [address] [id number] [address] [place] [address], [place] [address] Mar, [facility] [address] [id number] [address] [place] [address], [place] [address] Mar, [facility] [address] [id number] [address] [place] [address], [place] [address] Mar, [facility] [address] [id number] [address] [place] [address] Mar, [facility] [address] [id number] [address] [place] [address] Mar, [facility] [address] [id number] [address] [place] [phone] Mar, [facility] [address] [id number] [address] [place] [address] Oct, [facility] [address] [id number] [address] [place] [address] July, [facility] [address] [id number] [address] [place] [address] July, [facility] [address] [id number] [address] [place] [address] Jun, [facility] [address] [id number] [address] [place] [address] May, [facility] [address] [id number] [address] [place] [address] Feb, [facility] [address] [id number] [address] [place] [address] Feb, [facility] [address] [id number] [address] [place] [address] July, [facility] [address] [id number] [address] [place] [address] Apr, [facility] [address] [id number] [address] [place] [address] Jan, IMMUNIZATIONS No Known Immunizations SOCIAL HISTORY Never Assessed REASON FOR VISIT EMR-[facility] PLAN OF CARE VITAL SIGNS MEDICATIONS Unknown [...]
--- OUTSIDE RECORDS SUMMARY | 2019-03-20 23:11 | XMS REPORT ---
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 Active [id number] Problem Anxiety state, unspecified F41.1 Act [place]ores [id number] Problem Vasomotor symptoms due to menopause N95.1 Active [id number] ALLERGIES No Information ENCOUNTERS Encounter Location Date Diagnosis [facility] [address] [address] Jun, Left hip pain M25.552 [facility] [address] [address] Mar, Fever R50.9 and Acute nasoph aryngitis J00 [facility] [address] [address] Mar, [facility] [address] [address] Nov, Muscle ache M79.1 [place] [address] [address] Sep, Dysuria R30.0 [place] [address] [address] Aug, Vasomotor symptoms due to me nopause N95.1 ; Overweight (BMI 25.0- 29.9) E66.3 and Varicosities I86.8 [facility] [address] [place] [id number] [address] [place] [phone] Jun, [facility] [address] [place] [id number] [address] [place] [address] Apr, Cough R05 and Influenza J11. 1 [place] [address] [address] Apr, Screening breast examination Z12.31 ; Breast tenderness in female N64.4 ; Other obesity due to excess calories E66.09 and Body mass index (BMI) of 31.0-31.9 in adult Z68.31 [facility] [address] [address] Apr, Gastroenteritis K52.9 [facility] [address] [id number] Mar, Dental examination Z01.20 an d Dental caries K02.9 [facility] [address] [address] Feb, Gum abscess K05.219 [place] [address] [address] Feb, [place] [address] [address] Dec, Varicosities I86.8 [place] [address] [address] Sep, [place] [address] [address] Sep, [place] [address] [address] Sep, Anxiety state, unspecified F 41.1 [place] [address] [place] [id number] [place] [address] Aug, Unspecified mood [affective] disorder F39 and Eating disorder, unspecified F50.9 [place] [address] [place] [id number] [address] [place] [address] Aug, Anxiety state, unspecified F 41.1 [place] [address] [address] 13 Jun, 2016 [place] [address] [address] Jun, Fatigue, unspecified type R5 3.83 [place] [address] [address] Jun, Abdominal pain, left lower q uadrant R10.32 ; Candidiasis, cutaneous B37.2 ; Fatigue, unspecified type R53.83 ; Morbid (severe) obesity due to excess calories E66.01 ; General medical exam Z00.00 and Diverticulitis of large intestine without perforation or abscess without bleeding K57.32 [facility] [address] [address] 02 May, 2016 Left wrist pain M25.532 and Left wrist sprain, initial encounter S63.502A [place] [address] [address] 02 May, 2016 General medical exam Z00.00 [place] [address] [address] 12 Mar, 2016 Encounter for routine adult health examination with abnormal findings Z00.01 ; Body mass index (BMI) of 40.0-44.9 in adult Z68.41 ; Morbid (severe) obesity due to excess calories E66.01 ; History of IBS Z87.19 and Family history of colon cancer requiring screening colonoscopy Z80.0 [place] [address] [place] [id number] [address] [place] [address] Oct, [place] [address] [address] Oct, Other acute postprocedural p ain G89.18 ; Pain in left knee M25.562 ; Family history of colon cancer requiring screening colonoscopy Z80.0 and Hyperpigmentation L81.9 [place] [address] [address] May, [facility] [address] [place] [id number] [address] [place] [address] May, Left knee injury S89.92XA [place] [address] [address] Apr, [place] [address] [address] Apr, Left knee injury S89.92XA an d Varicosities I86.8 [place] [address] [address] Mar, [facility] [address] [address] Mar, Acute pain of left knee M25. 562 and Strain of left knee, initial encounter S86.912A [place] [address] [address] Mar, Lower abdominal tenderness R 10.819 and Breast tenderness N64.4 [place] [address] [place] [id number] [address] [place] [address] Feb, [place] [address] [address] Feb, Well woman exam Z01.419 ; Va [...] and Complex cyst of left ovary N83.29 [facility] [address] [facility] [id number] [address] [place] [address] 16 Feb, 2015 Abdominal pain R10.9 and Pel renetta pain R10.2 [facility] [address] [facility] [id number] [address] [place] [address] Feb, [facility] [address] [facility] [id number] [address] [place] [address] Feb, [facility] [address] [place] [id number] [address] [place] [address] Feb, General medical exam Z00.00 ; Right upper quadrant pain R10.11 and History of borderline diabetes mellitus Z87.898 [facility] [address] [place] [id number] [address] [place] [address] Feb, Right upper quadrant pain R1 0.11 [facility] [address] [place] [id number] [address] [place] [address] 28 Jun, 2014 Lumbago 724.2 [facility] [address] [place] [id number] [address] [place] [address] 14 Jun, 2014 [facility] [address] [place] [id number] [address] [place] [address] Jun, [facility] [address] [place] [id number] [address] [place] [address] May, [facility] [address] [facility] [id number] [address] [place] [address] May, [facility] [address] [place] [id number] [address] [place] [address] Apr, [facility] [address] [place] [id number] [address] [place] [address] Apr, [facility] [address] [place] [id number] [address] [place] [address] Mar, [facility] [address] [id number] [address] [place] [address], [place] [address] Mar, [facility] [address] [id number] [address] [place] [address], [place] [address] Mar, [facility] [address] [id number] [address] [place] [address], [place] [address] Mar, [facility] [address] [id number] [address] [place] [address], [place] [address] Mar, [facility] [address] [id number] [address] [place] [address], [place] [address] Mar, [facility] [address] [id number] [address] [place] [address], [place] [address] Mar, [facility] [address] [id number] [address] [place] [address], [place] [address] Feb, [facility] [address] [id number] [address] [place] [address], [place] [address] Feb, [facility] [address] [id number] [address] [place] [address], [place] [address] Feb, [facility] [address] [id number] [address] [place] [address], [place] [address] Feb, [facility] [address] [id number] [address] [place] [address], [place] [address] Feb, [facility] [address] [id number] [address] [place] [address], [place] [address] Jan, [facility] [address] [id number] [address] [place] [address], [place] [address] Jan, [facility] [address] [id number] [address] [place] [address], [place] [address] Oct, [facility] [address] [id number] [address] [place] [address], [place] [address] Oct, [facility] [address] [id number] [address] [place] [address], [place] [address] Sep, [facility] [address] [id number] [address] [place] [address], [place] [address] Sep, [facility] [address] [id number] [address] [place] [address], [place] [address] Aug, [facility] [address] [id number] [address] [place] [address], [place] [address] Aug, [facility] [address] [id number] [address] [place] [address], [place] [address] Aug, [facility] [address] [id number] [address] [place] [address], [place] [address] Apr, [facility] [address] [id number] [address] [place] [address], [place] [address] Apr, [facility] [address] [id number] [address] [place] [address], [place] [address] Apr, [facility] [address] [id number] [address] [place] [address], [place] [address] Apr, [facility] [address] [id number] [address] [place] [address], [place] [address] Apr, [facility] [address] [id number] [address] [place] [address], [place] [address] Mar, [facility] [address] [id number] [address] [place] [address], [place] [address] Mar, [facility] [address] [id number] [address] [place] [address], [place] [address] Mar, [facility] [address] [id number] [address] [place] [address], [place] [address] Mar, [facility] [address] [id number] [address] [place] [address], [place] [address] Mar, [facility] [address] [id number] [address] [place] [address], [place] [address] Mar, [facility] [address] [id number] [address] [place] [id number] Mar, [facility] [address] [id number] [address] [place] [address] Mar, [facility] [address] [id number] [address] [place] [phone] Mar, [facility] [address] [id number] [address] [place] [phone] Oct, [facility] [address] [id number] [address] [place] [phone] July, [facility] [address] [id number] [address] [place] [address] July, [facility] [address] [id number] [address] [place] [address] Jun, [facility] [address] [id number] [address] [place] [phone] May, [facility] [address] [id number] [address] [place] [id number] Feb, [facility] [address] [id number] [address] [place] [address] Feb, [facility] [address] [id number] [address] [place] [phone] July, [facility] [address] [id number] [address] [place] [address] Apr, [facility] [address] [id number] [address] [place] [address] Jan, IMMUNIZATIONS No Known Immunizations SOCIAL HISTORY [...]
--- OUTSIDE RECORDS SUMMARY | 2019-03-20 23:11 | XMS REPORT ---
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 Active 5997379 09 Problem Anxiety state, unspecified F41.1 Act flores 696455510 Problem Vasomotor symptoms due to menopause N95.1 Active 799080501 ALLERGIES No Information ENCOUNTERS Encounter Location Date Diagnosis [facility] [address] [address] Jun, Left hip pain M25.552 [facility] [address] [address] Mar, Fever R50.9 and Acute nasoph aryngitis J00 [facility] [address] [address] Mar, [facility] [address] [address] Nov, Muscle ache M79.1 [place] [address] [address] Sep, Dysuria R30.0 [place] [address] [address] Aug, Vasomotor symptoms due to me nopause N95.1 ; Overweight (BMI 25.0- 29.9) E66.3 and Varicosities I86.8 [facility] [address] [place] [id number] [address] [place] [address] Jun, [facility] [address] [place] [id number] [address] [place] [address] Apr, Cough R05 and Influenza J11. 1 [place] [address] [address] Apr, Screening breast examination Z12.31 ; Breast tenderness in female N64.4 ; Other obesity due to excess calories E66.09 and Body mass index (BMI) of 31.0-31.9 in adult Z68.31 [facility] [address] [address] Apr, Gastroenteritis K52.9 [facility] [address] [id number] Mar, Dental examination Z01.20 an d Dental caries K02.9 [facility] [address] [address] Feb, Gum abscess K05.219 [place] [address] [address] Feb, [place] [address] [address] Dec, Varicosities I86.8 [place] [address] [address] Sep, [place] [address] [address] Sep, [place] [address] [address] Sep, Anxiety state, unspecified F 41.1 [place] [address] [place] [id number] [place] [address] Aug, Unspecified mood [affective] disorder F39 and Eating disorder, unspecified F50.9 [place] [address] [place] [id number] [address] [place] [address] Aug, Anxiety state, unspecified F 41.1 [place] [address] [address] 13 Jun, 2016 [place] [address] [address] Jun, Fatigue, unspecified type R5 3.83 [place] [address] [address] Jun, Abdominal pain, left lower q uadrant R10.32 ; Candidiasis, cutaneous B37.2 ; Fatigue, unspecified type R53.83 ; Morbid (severe) obesity due to excess calories E66.01 ; General medical exam Z00.00 and Diverticulitis of large intestine without perforation or abscess without bleeding K57.32 [facility] [address] [address] 02 May, 2016 Left wrist pain M25.532 and Left wrist sprain, initial encounter S63.502A [place] [address] [address] 02 May, 2016 General medical exam Z00.00 [place] [address] [address] 12 Mar, 2016 Encounter for routine adult health examination with abnormal findings Z00.01 ; Body mass index (BMI) of 40.0-44.9 in adult Z68.41 ; Morbid (severe) obesity due to excess calories E66.01 ; History of IBS Z87.19 and Family history of colon cancer requiring screening colonoscopy Z80.0 [place] [address] [place] [id number] [address] [place] [address] Oct, [place] [address] [address] Oct, Other acute postprocedural p ain G89.18 ; Pain in left knee M25.562 ; Family history of colon cancer requiring screening colonoscopy Z80.0 and Hyperpigmentation L81.9 [place] [address] [address] May, [facility] [address] [place] [id number] [address] [place] [address] May, Left knee injury S89.92XA [place] [address] [address] Apr, [place] [address] [address] Apr, Left knee injury S89.92XA an d Varicosities I86.8 [place] [address] [address] Mar, [facility] [address] [address] Mar, Acute pain of left knee M25. 562 and Strain of left knee, initial encounter S86.912A [place] [address] [address] Mar, Lower abdominal tenderness R 10.819 and Breast tenderness N64.4 [place] [address] [place] [id number] [address] [place] [address] Feb, [place] [address] [address] Feb, Well woman exam Z01.419 ; Va [...] and Complex cyst of left ovary N83.29 [facility] [address] [facility] [id number] [address] [place] [address] 16 Feb, 2015 Abdominal pain R10.9 and Pel renetta pain R10.2 [facility] [address] [facility] [id number] [address] [place] [address] Feb, [facility] [address] [facility] [id number] [address] [place] [address] Feb, [facility] [address] [place] [id number] [address] [place] [address] Feb, General medical exam Z00.00 ; Right upper quadrant pain R10.11 and History of borderline diabetes mellitus Z87.898 [facility] [address] [place] [id number] [address] [place] [address] Feb, Right upper quadrant pain R1 0.11 [facility] [address] [place] [id number] [address] [place] [address] 28 Jun, 2014 Lumbago 724.2 [facility] [address] [place] [id number] [address] [place] [address] 14 Jun, 2014 [facility] [address] [place] [id number] [address] [place] [address] Jun, [facility] [address] [place] [id number] [address] [place] [address] May, [facility] [address] [facility] [id number] [address] [place] [address] May, [facility] [address] [place] [id number] [address] [place] [address] Apr, [facility] [address] [place] [id number] [address] [place] [address] Apr, [facility] [address] [place] [id number] [address] [place] [address] Mar, [facility] [address] [id number] [address] [place] [address], [place] [address] Mar, [facility] [address] [id number] [address] [place] [address], [place] [address] Mar, [facility] [address] [id number] [address] [place] [address], [place] [address] Mar, [facility] [address] [id number] [address] [place] [address], [place] [address] Mar, [facility] [address] [id number] [address] [place] [address], [place] [address] Mar, [facility] [address] [id number] [address] [place] [address], [place] [address] Mar, [facility] [address] [id number] [address] [place] [address], [place] [address] Feb, [facility] [address] [id number] [address] [place] [address], [place] [address] Feb, [facility] [address] [id number] [address] [place] [address], [place] [address] Feb, [facility] [address] [id number] [address] [place] [address], [place] [address] Feb, [facility] [address] [id number] [address] [place] [address], [place] [address] Feb, [facility] [address] [id number] [address] [place] [address], [place] [address] Jan, [facility] [address] [id number] [address] [place] [address], [place] [address] Jan, [facility] [address] [id number] [address] [place] [address], [place] [address] Oct, [facility] [address] [id number] [address] [place] [address], [place] [address] Oct, [facility] [address] [id number] [address] [place] [address], [place] [address] Sep, [facility] [address] [id number] [address] [place] [address], [place] [address] Sep, [facility] [address] [id number] [address] [place] [address], [place] [address] Aug, [facility] [address] [id number] [address] [place] [address], [place] [address] Aug, [facility] [address] [id number] [address] [place] [address], [place] [address] Aug, [facility] [address] [id number] [address] [place] [address], [place] [address] Apr, [facility] [address] [id number] [address] [place] [address], [place] [address] Apr, [facility] [address] [id number] [address] [place] [address], [place] [address] Apr, [facility] [address] [id number] [address] [place] [address], [place] [address] Apr, [facility] [address] [id number] [address] [place] [address], [place] [address] Apr, [facility] [address] [id number] [address] [place] [address], [place] [address] Mar, [facility] [address] [id number] [address] [place] [address], [place] [address] Mar, [facility] [address] [id number] [address] [place] [address], [place] [address] Mar, [facility] [address] [id number] [address] [place] [address], [place] [address] Mar, [facility] [address] [id number] [address] [place] [address], [place] [address] Mar, [facility] [address] [id number] [address] [place] [address], [place] [address] Mar, [facility] [address] [id number] [address] [place] [address] Mar, [facility] [address] [id number] [address] [place] [address] Mar, [facility] [address] [id number] [address] [place] [address] Mar, [facility] [address] [id number] [address] [place] [address] Oct, [facility] [address] [id number] [address] [place] [address] July, [facility] [address] [id number] [address] [place] [address] July, [facility] [address] [id number] [address] [place] [address] Jun, [facility] [address] [id number] [address] [place] [address] May, [facility] [address] [id number] [address] [place] [address] Feb, [facility] [address] [id number] [address] [place] [address] Feb, [facility] [address] [id number] [address] [place] [address] July, [facility] [address] [id number] [address] [place] [address] Apr, [facility] [address] [id number] [address] [place] [address] Jan, IMMUNIZATIONS No Known Immunizations SOCIAL HISTORY [...]
--- OUTSIDE RECORDS SUMMARY | 2019-03-20 23:11 | XMS REPORT ---
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 Active 7308297 09 Problem Anxiety state, unspecified F41.1 Act flores 951931652 Problem Vasomotor symptoms due to menopause N95.1 Active 102383531 ALLERGIES No Information ENCOUNTERS Encounter Location Date Diagnosis [facility] [address] [address] Jun, Left hip pain M25.552 [facility] [address] [address] Mar, Fever R50.9 and Acute nasoph aryngitis J00 [facility] [address] [address] Mar, [facility] [address] [address] Nov, Muscle ache M79.1 [place] [address] [address] Sep, Dysuria R30.0 [place] [address] [address] Aug, Vasomotor symptoms due to me nopause N95.1 ; Overweight (BMI 25.0- 29.9) E66.3 and Varicosities I86.8 [facility] [address] [place] [id number] [address] [place] [address] Jun, [facility] [address] [place] [id number] [address] [place] [address] Apr, Cough R05 and Influenza J11. 1 [place] [address] [address] Apr, Screening breast examination Z12.31 ; Breast tenderness in female N64.4 ; Other obesity due to excess calories E66.09 and Body mass index (BMI) of 31.0-31.9 in adult Z68.31 [facility] [address] [address] Apr, Gastroenteritis K52.9 [facility] [address] [id number] Mar, Dental examination Z01.20 an d Dental caries K02.9 [facility] [address] [address] Feb, Gum abscess K05.219 [place] [address] [address] Feb, [place] [address] [address] Dec, Varicosities I86.8 [place] [address] [address] Sep, [place] [address] [address] Sep, [place] [address] [address] Sep, Anxiety state, unspecified F 41.1 [place] [address] [place] [id number] [place] [address] Aug, Unspecified mood [affective] disorder F39 and Eating disorder, unspecified F50.9 [place] [address] [place] [id number] [address] [place] [address] Aug, Anxiety state, unspecified F 41.1 [place] [address] [address] 13 Jun, 2016 [place] [address] [address] Jun, Fatigue, unspecified type R5 3.83 [place] [address] [address] Jun, Abdominal pain, left lower q uadrant R10.32 ; Candidiasis, cutaneous B37.2 ; Fatigue, unspecified type R53.83 ; Morbid (severe) obesity due to excess calories E66.01 ; General medical exam Z00.00 and Diverticulitis of large intestine without perforation or abscess without bleeding K57.32 [facility] [address] [address] 02 May, 2016 Left wrist pain M25.532 and Left wrist sprain, initial encounter S63.502A [place] [address] [address] 02 May, 2016 General medical exam Z00.00 [place] [address] [address] 12 Mar, 2016 Encounter for routine adult health examination with abnormal findings Z00.01 ; Body mass index (BMI) of 40.0-44.9 in adult Z68.41 ; Morbid (severe) obesity due to excess calories E66.01 ; History of IBS Z87.19 and Family history of colon cancer requiring screening colonoscopy Z80.0 [place] [address] [place] [id number] [address] [place] [address] Oct, [place] [address] [address] Oct, Other acute postprocedural p ain G89.18 ; Pain in left knee M25.562 ; Family history of colon cancer requiring screening colonoscopy Z80.0 and Hyperpigmentation L81.9 [place] [address] [address] May, [facility] [address] [place] [id number] [address] [place] [address] May, Left knee injury S89.92XA [place] [address] [address] Apr, [place] [address] [address] Apr, Left knee injury S89.92XA an d Varicosities I86.8 [place] [address] [address] Mar, [facility] [address] [address] Mar, Acute pain of left knee M25. 562 and Strain of left knee, initial encounter S86.912A [place] [address] [address] Mar, Lower abdominal tenderness R 10.819 and Breast tenderness N64.4 [place] [address] [place] [id number] [address] [place] [address] Feb, [place] [address] [address] Feb, Well woman exam Z01.419 ; Va [...] and Complex cyst of left ovary N83.29 [facility] [address] [facility] [id number] [address] [place] [address] 16 Feb, 2015 Abdominal pain R10.9 and Pel renetta pain R10.2 [facility] [address] [facility] [id number] [address] [place] [address] Feb, [facility] [address] [facility] [id number] [address] [place] [address] Feb, [facility] [address] [place] [id number] [address] [place] [address] Feb, General medical exam Z00.00 ; Right upper quadrant pain R10.11 and History of borderline diabetes mellitus Z87.898 [facility] [address] [place] [id number] [address] [place] [address] Feb, Right upper quadrant pain R1 0.11 [facility] [address] [place] [id number] [address] [place] [address] 28 Jun, 2014 Lumbago 724.2 [facility] [address] [place] [id number] [address] [place] [address] 14 Jun, 2014 [facility] [address] [place] [id number] [address] [place] [address] Jun, [facility] [address] [place] [id number] [address] [place] [address] May, [facility] [address] [facility] [id number] [address] [place] [address] May, [facility] [address] [place] [id number] [address] [place] [address] Apr, [facility] [address] [place] [id number] [address] [place] [address] Apr, [facility] [address] [place] [id number] [address] [place] [address] Mar, [facility] [address] [id number] [address] [place] [address], [place] [address] Mar, [facility] [address] [id number] [address] [place] [address], [place] [address] Mar, [facility] [address] [id number] [address] [place] [address], [place] [address] Mar, [facility] [address] [id number] [address] [place] [address], [place] [address] Mar, [facility] [address] [id number] [address] [place] [address], [place] [address] Mar, [facility] [address] [id number] [address] [place] [address], [place] [address] Mar, [facility] [address] [id number] [address] [place] [address], [place] [address] Feb, [facility] [address] [id number] [address] [place] [address], [place] [address] Feb, [facility] [address] [id number] [address] [place] [address], [place] [address] Feb, [facility] [address] [id number] [address] [place] [address], [place] [address] Feb, [facility] [address] [id number] [address] [place] [address], [place] [address] Feb, [facility] [address] [id number] [address] [place] [address], [place] [address] Jan, [facility] [address] [id number] [address] [place] [address], [place] [address] Jan, [facility] [address] [id number] [address] [place] [address], [place] [address] Oct, [facility] [address] [id number] [address] [place] [address], [place] [address] Oct, [facility] [address] [id number] [address] [place] [address], [place] [address] Sep, [facility] [address] [id number] [address] [place] [address], [place] [address] Sep, [facility] [address] [id number] [address] [place] [address], [place] [address] Aug, [facility] [address] [id number] [address] [place] [address], [place] [address] Aug, [facility] [address] [id number] [address] [place] [address], [place] [address] Aug, [facility] [address] [id number] [address] [place] [address], [place] [address] Apr, [facility] [address] [id number] [address] [place] [address], [place] [address] Apr, [facility] [address] [id number] [address] [place] [address], [place] [address] Apr, [facility] [address] [id number] [address] [place] [address], [place] [address] Apr, [facility] [address] [id number] [address] [place] [address], [place] [address] Apr, [facility] [address] [id number] [address] [place] [address], [place] [address] Mar, [facility] [address] [id number] [address] [place] [address], [place] [address] Mar, [facility] [address] [id number] [address] [place] [address], [place] [address] Mar, [facility] [address] [id number] [address] [place] [address], [place] [address] Mar, [facility] [address] [id number] [address] [place] [address], [place] [address] Mar, [facility] [address] [id number] [address] [place] [address], [place] [address] Mar, [facility] [address] [id number] [address] [place] [address] Mar, [facility] [address] [id number] [address] [place] [address] Mar, [facility] [address] [id number] [address] [place] [address] Mar, [facility] [address] [id number] [address] [place] [address] Oct, [facility] [address] [id number] [address] [place] [address] July, [facility] [address] [id number] [address] [place] [address] July, [facility] [address] [id number] [address] [place] [address] Jun, [facility] [address] [id number] [address] [place] [address] May, [facility] [address] [id number] [address] [place] [address] Feb, [facility] [address] [id number] [address] [place] [address] Feb, [facility] [address] [id number] [address] [place] [address] July, [facility] [address] [id number] [address] [place] [address] Apr, [facility] [address] [id number] [address] [place] [id number] Jan, IMMUNIZATIONS No Known Immunizations SOCIAL HISTORY [...]
--- OUTSIDE RECORDS SUMMARY | 2019-03-20 23:11 | XMS REPORT ---
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 Active [id number] Problem Anxiety state, unspecified F41.1 Act flores 282805904 Problem Vasomotor symptoms due to menopause N95.1 Active 064333085 ALLERGIES No Information ENCOUNTERS Encounter Location Date Diagnosis [place] [id number] [address] Jun, Left hip pain M25.552 [facility] [address] Mar, Fever R50.9 and Acute nasoph aryngitis J00 [facility] [address] [address] Mar, [place] [address] [address] Nov, Muscle ache M79.1 [place] [address] [address] Sep, Dysuria R30.0 [place] [address] [address] Aug, Vasomotor symptoms due to me nopause N95.1 ; Overweight (BMI 25.0- 29.9) E66.3 and Varicosities I86.8 [facility] [address] [place] [address] Jun, [facility] [address] [address] Apr, Cough R05 and Influenza J11. 1 [place] [address] [address] Apr, Screening breast examination Z12.31 ; Breast tenderness in female N64.4 ; Other obesity due to excess calories E66.09 and Body mass index (BMI) of 31.0-31.9 in adult Z68.31 [facility] [address] [address] Apr, Gastroenteritis K52.9 [facility] [address] [place] [id number] Mar, Dental examination Z01.20 an d Dental caries K02.9 [facility] [address] [address] Feb, Gum abscess K05.219 [place] [address] [address] Feb, [place] [address] [address] Dec, Varicosities I86.8 [place] [address] [address] Sep, [place] [address] [address] Sep, [place] [address] [address] Sep, Anxiety state, unspecified F 41.1 [place] [address] [address] Aug, Unspecified mood [affective] disorder F39 and Eating disorder, unspecified F50.9 [place] [address] [place] [id number] [place] [address] 16 Aug, 2016 Anxiety state, unspecified F 41.1 [place] [address] [address] 13 Jun, 2016 [place] [address] [address] Jun, Fatigue, unspecified type R5 3.83 [place] [address] [address] 07 Jun, 2016 Abdominal pain, left lower q uadrant R10.32 ; Candidiasis, cutaneous B37.2 ; Fatigue, unspecified type R53.83 ; Morbid (severe) obesity due to excess calories E66.01 ; General medical exam Z00.00 and Diverticulitis of large intestine without perforation or abscess without bleeding K57.32 [facility] [address] [place] [id number] [place] [address] 02 May, 2016 Left wrist pain M25.532 and Left wrist sprain, initial encounter S63.502A [address] [address] 02 May, 2016 General medical exam Z00.00 [place] [address] [address] Mar, Encounter for routine adult health examination with abnormal findings Z00.01 ; Body mass index (BMI) of 40.0-44.9 in adult Z68.41 ; Morbid (severe) obesity due to excess calories E66.01 ; History of IBS Z87.19 and Family history of colon cancer requiring screening colonoscopy Z80.0 [place] [address] [place] [id number] [place] [address] Oct, [place] [address] [address] Oct, Other acute postprocedural p ain G89.18 ; Pain in left knee M25.562 ; Family history of colon cancer requiring screening colonoscopy Z80.0 and Hyperpigmentation L81.9 [place] [address] [place] [id number] [place] [address] May, [facility] [address] [place] [id number] [place] [address] May, Left knee injury S89.92XA [place] [address] [address] Apr, [place] [address] [address] Apr, Left knee injury S89.92XA an d Varicosities I86.8 [place] [address] [place] [id number] [place] [address] Mar, [facility] [address] [address] Mar, Acute pain of left knee M25. 562 and Strain of left knee, initial encounter S86.912A [place] [address] [place] [id number] [place] [address] Mar, Lower abdominal tenderness R 10.819 and Breast tenderness N64.4 [place] [address] [place] [id number] [place] [address] Feb, [place] [address] [address] Feb, Well woman exam Z01.419 ; Va [...] and Complex cyst of left ovary N83.29 [facility] [address] [facility] [id number] [address] [place] [address] 16 Feb, 2015 Abdominal pain R10.9 and Pel renetta pain R10.2 [facility] [address] [facility] [id number] [address] [place] [address] 11 Feb, 2015 [facility] [address] [facility] [id number] [place] [address] Feb, [facility] [address] [facility] [id number] [address] [place] [address] 09 Feb, 2015 General medical exam Z00.00 ; Right upper quadrant pain R10.11 and History of borderline diabetes mellitus Z87.898 [facility] [address] [place] [id number] [address] [place] [address] 09 Feb, 2015 Right upper quadrant pain R1 0.11 [facility] [address] [place] [id number] [address] [place] [address] 28 Jun, 2014 Lumbago 724.2 [facility] [address] [facility] [id number] [address] [place] [address] 14 Jun, 2014 [facility] [address] [place] [id number] [address] [place] [address] Jun, [facility] [address] [place] [id number] [address] [place] [address] May, [facility] [address] [facility] [id number] [address] [place] [phone] May, [facility] [address] [facility] [id number] [address] [place] [address] Apr, [facility] [address] [place] [id number] [address] [place] [address] Apr, [facility] [address] [facility] [id number] [address] [place] [address] Mar, [facility] [address] [id number] [address] [place] [address], [place] [address] Mar, [facility] [address] [id number] [address] [place] [address], [place] [address] Mar, [facility] [address] [id number] [address] [place] [address], [place] [address] Mar, [facility] [address] [id number] [address] [place] [address], [place] [address] Mar, [facility] [address] [id number] [address] [place] [address], [place] [address] Mar, [facility] [address] [id number] [address] [place] [address], [place] [address] Mar, [facility] [address] [id number] [address] [place] [address], [place] [address] Feb, [facility] [address] [id number] [address] [place] [address], [place] [address] Feb, [facility] [address] [id number] [address] [place] [address], [place] [address] Feb, [facility] [address] [id number] [address] [place] [address], [place] [address] Feb, [facility] [address] [id number] [address] [place] [address], [place] [address] Feb, [facility] [address] [id number] [address] [place] [address], [place] [address] Jan, [facility] [address] [id number] [address] [place] [address], [place] [address] Jan, [facility] [address] [id number] [address] [place] [address], [place] [address] Oct, [facility] [address] [id number] [address] [place] [address], [place] [address] Oct, [facility] [address] [id number] [address] [place] [address], [place] [address] Sep, [facility] [address] [id number] [address] [place] [address], [place] [address] Sep, [facility] [address] [id number] [address] [place] [address], [place] [address] Aug, [facility] [address] [id number] [address] [place] [address], [place] [address] Aug, [facility] [address] [id number] [address] [place] [address], [place] [address] Aug, [facility] [address] [id number] [address] [place] [address], [place] [address] Apr, [facility] [address] [id number] [address] [place] [address], [place] [address] Apr, [facility] [address] [id number] [address] [place] [address], [place] [address] Apr, [facility] [address] [id number] [address] [place] [address], [place] [address] Apr, [facility] [address] [id number] [address] [place] [address], [place] [address] Apr, [facility] [address] [id number] [address] [place] [address], [place] [address] Mar, [facility] [address] [id number] [address] [place] [address], [place] [address] Mar, [facility] [address] [id number] [address] [place] [address], [place] [address] Mar, [facility] [address] [id number] [address] [place] [address], [place] [address] Mar, [facility] [address] [id number] [address] [place] [address], [place] [address] Mar, [facility] [address] [id number] [address] [place] [address], [place] [address] Mar, [facility] [address] [id number] [address] [place] [address] Mar, [facility] [address] [id number] [address] [place] [address] Mar, [facility] [address] [id number] [address] [place] [address] Mar, [facility] [address] [id number] [address] [place] [address] Oct, [facility] [address] [id number] [address] [place] [id number] July, [facility] [address] [id number] [address] [place] [address] July, [facility] [address] [id number] [address] [place] [address] Jun, [facility] [address] [id number] [address] [place] [address] May, [facility] [address] [id number] [address] [place] [address] Feb, [facility] [address] [id number] [address] [place] [address] Feb, [facility] [address] [id number] [address] [place] [phone] July, [facility] [address] [id number] [address] [place] [address] Apr, [facility] [address] [id number] [address] [place] [address] Jan, IMMUNIZATIONS No Known Immunizations SOCIAL HISTORY Never Assessed REASON FOR VISIT PLAN OF CARE VITAL SIGNS Height 62 in 2013-10-22 Weight 217 lbs 2013-10-22 Temperature 97.8 degrees Fahrenheit 2013-10-22 Heart Rate 72 bpm 2013-10-22 Respiratory Rate 18 2013-10-22 Blood pressure systolic 134 mmHg 2013-10-22 Blood pressure diastolic 76 mmHg 2013-10-22 MEDICATIONS No Known Medications RESULTS No Results [...]
--- OUTSIDE RECORDS SUMMARY | 2019-03-20 23:11 | XMS REPORT ---
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 Active [id number] Problem Anxiety state, unspecified F41.1 Act flores [id number] Problem Vasomotor symptoms due to menopause N95.1 Active [id number] ALLERGIES No Information ENCOUNTERS Encounter Location Date Diagnosis [place] [address] [address] July, [place] [address] [address] Jun, Left hip pain M25.552 [facility] [place]note 2[place] [address] [address] Mar, Fever R50.9 and Acute nasoph aryngitis J00 [facility] [place]note 2[place] [address] [address] Mar, [place] [address] [address] Nov, Muscle ache M79.1 [place] [address] [address] Sep, Dysuria R30.0 [place] [address] [address] Aug, Vasomotor symptoms due to me nopause N95.1 ; Overweight (BMI 25.0- 29.9) E66.3 and Varicosities I86.8 [facility] [address] [facility] [id number] [address] [place] [address] Jun, [facility] [address] [facility] [id number] [address] [place] [address] Apr, Cough R05 and Influenza J11. 1 [place] [address] [address] [place] [id number] [address] [place] [address] Apr, Screening breast examination Z12.31 ; Breast tenderness in female N64.4 ; Other obesity due to excess calories E66.09 and Body mass index (BMI) of 31.0-31.9 in adult Z68.31 [facility] [address] [facility] [id number] [address] [place] [address] 01 Apr, 2017 Gastroenteritis K52.9 [facility] [id number] [place] [id number] Mar, Dental examination Z01.20 an d Dental caries K02.9 [facility] [address] [facility] [id number] [address] [place] [phone] Feb, Gum abscess K05.219 [place] [address] [address] Feb, [place] [address] [place] [id number] [place] [phone] Dec, Varicosities I86.8 [place] [address] [place] [address] Sep, [place] [address] [place] [id number] [address] [place] [address] Sep, [place] [address] [address] Sep, Anxiety state, unspecified F 41.1 [place] [address] [place] [id number] [address] [place] [address] Aug, Unspecified mood [affective] disorder F39 and Eating disorder, unspecified F50.9 [place] [address] [address] [place] [id number] [address] [place] [address] 16 Aug, 2016 Anxiety state, unspecified F 41.1 [place] [address] [address] 13 Jun, 2016 [place] [address] [address] Jun, Fatigue, unspecified type R5 3.83 [place] [address] [address] 07 Jun, 2016 Abdominal pain, left lower q uadrant R10.32 ; Candidiasis, cutaneous B37.2 ; Fatigue, unspecified type R53.83 ; Morbid (severe) obesity due to excess calories E66.01 ; General medical exam Z00.00 and Diverticulitis of large intestine without perforation or abscess without bleeding K57.32 [facility] [address] [address] 02 May, 2016 Left wrist pain M25.532 and Left wrist sprain, initial encounter S63.502A [place] [address] [address] 02 May, 2016 General medical exam Z00.00 [place] [address] [address] Mar, Encounter for routine adult health examination with abnormal findings Z00.01 ; Body mass index (BMI) of 40.0-44.9 in adult Z68.41 ; Morbid (severe) obesity due to excess calories E66.01 ; History of IBS Z87.19 and Family history of colon cancer requiring screening colonoscopy Z80.0 [place] [address] [address] [place] [id number] [address] [place] [address] Oct, [place] [address] [place] [id number] [address] [place] [address] Oct, Other acute postprocedural p ain G89.18 ; Pain in left knee M25.562 ; Family history of colon cancer requiring screening colonoscopy Z80.0 and Hyperpigmentation L81.9 [place] [address] [address] May, [facility] [address] [place] [id number] [address] [place] [address] May, Left knee injury S89.92XA [place] [address] [address] Apr, [place] [address] [address] Apr, Left knee injury S89.92XA an d Varicosities I86.8 [place] [address] [address] Mar, [facility] [address] [address] Mar, Acute pain of left knee M25. 562 and Strain of left knee, initial encounter S86.912A [place] [address] [address] Mar, Lower abdominal tenderness R 10.819 and Breast tenderness N64.4 [place] [address] [place] [id number] [address] [place] [address] Feb, [place] [address] [address] Feb, Well woman exam Z01.419 ; Va [...] and Complex cyst of left ovary N83.29 [facility] [address] [facility] [id number] [address] [place] [address] 16 Feb, 2015 Abdominal pain R10.9 and Pel renetta pain R10.2 [facility] [address] [facility] [id number] [address] [place] [address] Feb, [facility] [address] [place] [id number] [place] [address] Feb, [facility] [address] [place] [id number] [place] [address] 09 Feb, 2015 General medical exam Z00.00 ; Right upper quadrant pain R10.11 and History of borderline diabetes mellitus Z87.898 [facility] [address] [place] [id number] [address] [place] [phone] Feb, Right upper quadrant pain R1 0.11 [facility] [address] [place] [id number] [address] [place] [address] 28 Jun, 2014 Lumbago 724.2 [facility] [address] [address] 14 Jun, 2014 [facility] [address] [place] [id number] [address] [place] [phone] Jun, [facility] [address] [place] [id number] [address] [place] [address] May, [facility] [address] [place] [id number] [address] [place] [address] May, [facility] [address] [place] [id number] [address] [place] [address] Apr, [facility] [address] [place] [id number] [address] [place] [address] Apr, [facility] [address] [place] [id number] [address] [place] [address] Mar, [facility] [address] [id number] [address] [place] [address], [place] [address] Mar, [facility] [address] [id number] [address] [place] [address], [place] [address] Mar, [facility] [address] [id number] [address] [place] [address], [place] [address] Mar, [facility] [address] [id number] [address] [place] [address], [place] [address] Mar, [facility] [address] [id number] [address] [place] [address], [place] [address] Mar, [facility] [address] [id number] [address] [place] [address], [place] [address] Mar, [facility] [address] [id number] [address] [place] [address], [place] [address] Feb, [facility] [address] [id number] [address] [place] [address], [place] [address] Feb, [facility] [address] [id number] [address] [place] [address], [place] [address] Feb, [facility] [address] [id number] [address] [place] [address], [place] [address] Feb, [facility] [address] [id number] [address] [place] [address], [place] [address] Feb, [facility] [address] [id number] [address] [place] [address], [place] [address] Jan, [facility] [address] [id number] [address] [place] [address], [place] [address] Jan, [facility] [address] [id number] [address] [place] [address], [place] [address] Oct, [facility] [address] [id number] [address] [place] [address], [place] [address] Oct, [facility] [address] [id number] [address] [place] [address], [place] [address] Sep, [facility] [address] [id number] [address] [place] [address], [place] [address] Sep, [facility] [address] [id number] [address] [place] [address], [place] [address] Aug, [facility] [address] [id number] [address] [place] [address], [place] [address] Aug, [facility] [address] [id number] [address] [place] [address], [place] [address] Aug, [facility] [address] [id number] [address] [place] [address], [place] [address] Apr, [facility] [address] [id number] [address] [place] [address], [place] [address] Apr, [facility] [address] [id number] [address] [place] [address], [place] [address] Apr, [facility] [address] [id number] [address] [place] [address], [place] [address] Apr, [facility] [address] [id number] [address] [place] [address], [place] [address] Apr, [facility] [address] [id number] [address] [place] [address], [place] [address] Mar, [facility] [address] [id number] [address] [place] [address], [place] [address] Mar, [facility] [address] [id number] [address] [place] [address], [place] [address] Mar, [facility] [address] [id number] [address] [place] [address], [place] [address] Mar, [facility] [address] [id number] [address] [place] [address], [place] [address] Mar, [facility] [address] [id number] [address] [place] [address], [place] [address] Mar, [facility] [address] [id number] [address] [place] [address] Mar, [facility] [address] [id number] [address] [place] [phone] Mar, [facility] [address] [id number] [address] [place] [address] Mar, [facility] [address] [id number] [address] [place] [phone] Oct, [facility] [address] [id number] [address] [place] [phone] July, [facility] [address] [id number] [address] [place] [phone] July, [facility] [address] [id number] [address] [place] [phone] Jun, [facility] [address] [id number] [address] [place] [phone] May, [facility] [address] [id number] [address] [place] [phone] Feb, [facility] [address] [id number] [address] [place] [phone] Feb, [facility] [address] [id number] [address] [place] [phone] July, [facility] [address] [id number] [address] [place] [address] Apr, [facility] [address] [id number] [address] [place] [phone] Jan, IMMUNIZATIONS No Known Immunizations SOCIAL HISTORY Never Assessed REASON FOR VISIT EMR-[facility] PLAN OF CARE VITAL SIGNS MEDICATIONS Unknown [...]
--- OUTSIDE RECORDS SUMMARY | 2019-03-20 23:11 | XMS REPORT ---
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 Active 5206853 [id number] Problem Anxiety state, unspecified F41.1 Act flores [id number] Problem Vasomotor symptoms due to menopause N95.1 Active 272539187 ALLERGIES No Information ENCOUNTERS Encounter Location Date Diagnosis [place] [address] [address] Jun, Left hip pain M25.552 [facility] [address] [address] Mar, Fever R50.9 and Acute nasoph aryngitis J00 [facility] [address] [address] Mar, [place] [address] [address] Nov, Muscle ache M79.1 [place] [address] [address] Sep, Dysuria R30.0 [place] [address] [address] Aug, Vasomotor symptoms due to me nopause N95.1 ; Overweight (BMI 25.0- 29.9) E66.3 and Varicosities I86.8 [place] [address] [address] Jun, [facility] [address] [place] [address] Apr, Cough R05 and Influenza J11. 1 [facility] [address] [place] [id number] [place] [id number] 06 Apr, 2017 Screening breast examination Z12.31 ; Breast tenderness in female N64.4 ; Other obesity due to excess calories E66.09 and Body mass index (BMI) of 31.0-31.9 in adult Z68.31 [facility] [address] [place] [id number] [address] [place] [address] Apr, Gastroenteritis K52.9 [facility] [address] [place] [id number] [place] [id number] Mar, Dental examination Z01.20 an d Dental caries K02.9 [facility] [address] [address] Feb, Gum abscess K05.219 [facility] [address] [address] Feb, [place] [address] [address] Dec, Varicosities I86.8 [place] [address] [address] Sep, [place] [address] [address] Sep, [facility] [address] [address] Sep, Anxiety state, unspecified F 41.1 [place] [address] [address] Aug, Unspecified mood [affective] disorder F39 and Eating disorder, unspecified F50.9 [facility] [address] [address] Aug, Anxiety state, unspecified F 41.1 [place] [address] [place] [address] Jun, [place] [address] [place] [id number] [place] [address] Jun, Fatigue, unspecified type R5 3.83 [place] [address] [place] [id number] [address] [place] [id number] 07 Jun, 2016 Abdominal pain, left lower q uadrant R10.32 ; Candidiasis, cutaneous B37.2 ; Fatigue, unspecified type R53.83 ; Morbid (severe) obesity due to excess calories E66.01 ; General medical exam Z00.00 and Diverticulitis of large intestine without perforation or abscess without bleeding K57.32 [facility] [address] [place] [id number] [place] [address] 02 May, 2016 Left wrist pain M25.532 and Left wrist sprain, initial encounter S63.502A [place] [address] [place] [id number] [place] [id number] 02 May, 2016 General medical exam Z00.00 [place] [address] [place] [id number] [address] [place] [id number] 12 Mar, 2016 Encounter for routine adult health examination with abnormal findings Z00.01 ; Body mass index (BMI) of 40.0-44.9 in adult Z68.41 ; Morbid (severe) obesity due to excess calories E66.01 ; History of IBS Z87.19 and Family history of colon cancer requiring screening colonoscopy Z80.0 [place] [address] [place] [id number] [place] [address] Oct, [place] [address] [address] Oct, Other acute postprocedural p ain G89.18 ; Pain in left knee M25.562 ; Family history of colon cancer requiring screening colonoscopy Z80.0 and Hyperpigmentation L81.9 [place] [address] [place] [address] May, [facility] [address] [address] May, Left knee injury S89.92XA [place] [address] [address] Apr, [facility] [address] [address] Apr, Left knee injury S89.92XA an d Varicosities I86.8 [place] [address] [address] Mar, [facility] [address] [place] [id number] [address] [place] [address] Mar, Acute pain of left knee M25. 562 and Strain of left knee, initial encounter S86.912A [place] [address] [place] [id number] [place] [address] Mar, Lower abdominal tenderness R 10.819 and Breast tenderness N64.4 [place] [address] [place] [id number] [place] [address] Feb, [place] [address] [address] Feb, Well woman exam Z01.419 ; Va [...] and Complex cyst of left ovary N83.29 [place] [address] [place] [id number] [place] [address] Feb, Abdominal pain R10.9 and Pel renetta pain R10.2 [facility] [address] [id number] [address] [place] [address] Feb, [facility] [address] [id number] [address] [place] [address] Feb, [facility] [address] [id number] [address] [place] [address] Feb, General medical exam Z00.00 ; Right upper quadrant pain R10.11 and History of borderline diabetes mellitus Z87.898 [facility] [address] [id number] [address] [place] [phone] Feb, Right upper quadrant pain R1 0.11 [facility] [address] [id number] [address] [place] [id number] 28 Jun, 2014 Lumbago 724.2 [facility] [address] [id number] [address] [place] [id number] 14 Jun, 2014 [facility] [address] [id number] [address] [place] [phone] Jun, [facility] [address] [facility] [id number] [address] [place] [address] May, [facility] [address] [id number] [address] [place] [phone] May, [facility] [address] [id number] [address] [place] [address] Apr, [facility] [address] [id number] [address] [place] [phone] Apr, [facility] [address] [facility] [id number] [address] [place] [id number] Mar, [facility] [address] [facility] [id number] [address] [place] [phone] Mar, [facility] [address] [id number] [address] [place] [address], [place] [address] Mar, [facility] [address] [id number] [address] [place] [address], [place] [address] Mar, [facility] [address] [id number] [address] [place] [address], [place] [address] Mar, [facility] [address] [id number] [address] [place] [address], [place] [address] Mar, [facility] [address] [id number] [address] [place] [address], [place] [address] Mar, [facility] [address] [id number] [address] [place] [address], [place] [address] Feb, [facility] [address] [id number] [address] [place] [address], [place] [address] Feb, [facility] [address] [id number] [address] [place] [address], [place] [address] Feb, [facility] [address] [id number] [address] [place] [address], [place] [address] Feb, [facility] [address] [id number] [address] [place] [address], [place] [address] Feb, [facility] [address] [id number] [address] [place] [address], [place] [address] Jan, [facility] [address] [id number] [address] [place] [address], [place] [address] Jan, [facility] [address] [id number] [address] [place] [address], [place] [address] Oct, [facility] [address] [id number] [address] [place] [address], [place] [address] Oct, [facility] [address] [id number] [address] [place] [address], [place] [address] Sep, [facility] [address] [id number] [address] [place] [address], [place] [address] Sep, [facility] [address] [id number] [address] [place] [address], [place] [address] Aug, [facility] [address] [id number] [address] [place] [address], [place] [address] Aug, [facility] [address] [id number] [address] [place] [address], [place] [address] Aug, [facility] [address] [id number] [address] [place] [address], [place] [address] Apr, [facility] [address] [id number] [address] [place] [address], [place] [address] Apr, [facility] [address] [id number] [address] [place] [address], [place] [address] Apr, [facility] [address] [id number] [address] [place] [address], [place] [address] Apr, [facility] [address] [id number] [address] [place] [address], [place] [address] Apr, [facility] [address] [id number] [address] [place] [address], [place] [address] Mar, [facility] [address] [id number] [address] [place] [address], [place] [address] Mar, [facility] [address] [id number] [address] [place] [address], [place] [address] Mar, [facility] [address] [id number] [address] [place] [address], [place] [address] Mar, [facility] [address] [id number] [address] [place] [address], [place] [address] Mar, [facility] [address] [id number] [address] [place] [address], [place] [address] Mar, [facility] [address] [id number] [address] [place] [address], [place] [address] Mar, [facility] [address] [id number] [address] [place] [id number] Mar, [facility] [address] [id number] [address] [place] [address] Mar, [facility] [address] [id number] [address] [place] [id number] Oct, [facility] [address] [id number] [address] [place] [id number] July, [facility] [address] [id number] [address] [place] [phone] July, [facility] [address] [id number] [address] [place] [id number] Jun, [facility] [address] [id number] [address] [place] [id number] May, [facility] [address] [id number] [address] [place] [phone] Feb, [facility] [address] [id number] [address] [place] [id number] Feb, [facility] [address] [id number] [address] [place] [phone] July, [facility] [address] [id number] [address] [place] [id number] Apr, [facility] [address] [id number] [address] [place] [id number] Jan, IMMUNIZATIONS No Known Immunizations SOCIAL HISTORY [...]
--- OUTSIDE RECORDS SUMMARY | 2019-03-20 23:12 | XMS REPORT ---
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 Active [id number] Problem Anxiety state, unspecified F41.1 Act flores [id number] Problem Vasomotor symptoms due to menopause N95.1 Active [id number] ALLERGIES No Information ENCOUNTERS Encounter Location Date Diagnosis [place] [address] [address] Jun, [facility] [address] [address] Mar, Fever R50.9 and Acute nasoph aryngitis J00 [facility] [address] [address] Mar, [place] [address] [address] Nov, Muscle ache M79.1 [place] [address] [address] Sep, Dysuria R30.0 [place] [address] [address] Aug, Vasomotor symptoms due to me nopause N95.1 ; Overweight (BMI 25.0- 29.9) E66.3 and Varicosities I86.8 [place] [address] [address] Jun, [facility] [address] [facility] [id number] [address] [place] [phone] 21 Apr, 2017 Cough R05 and Influenza J11. [address] [facility] [address] [address] 06 Apr, 2017 Screening breast examination Z12.31 ; Breast tenderness in female N64.4 ; Other obesity due to excess calories E66.09 and Body mass index (BMI) of 31.0-31.9 in adult Z68.31 [facility] [address] [address] 01 Apr, 2017 Gastroenteritis K52.9 [facility] [id number] [place] [id number] Mar, Dental examination Z01.20 an d Dental caries K02.9 [facility] [address] [address] Feb, Gum abscess K05.219 [facility] [address] [address] Feb, [place] [address] [address] Dec, Varicosities I86.8 [place] [address] [address] Sep, [place] [address] [address] Sep, [facility] [address] [address] Sep, Anxiety state, unspecified F 41.1 [place] [address] [address] Aug, Unspecified mood [affective] disorder F39 and Eating disorder, unspecified F50.9 [place] [address] [address] Aug, Anxiety state, unspecified F 41.1 [facility] [address] [place] [id number] [address] [place] [phone] Jun, [place] [address] [address] [place] [id number] [address] [place] [address] Jun, Fatigue, unspecified type R5 3.83 [place] [address] [address] 07 Jun, 2016 Abdominal pain, left lower q uadrant R10.32 ; Candidiasis, cutaneous B37.2 ; Fatigue, unspecified type R53.83 ; Morbid (severe) obesity due to excess calories E66.01 ; General medical exam Z00.00 and Diverticulitis of large intestine without perforation or abscess without bleeding K57.32 [facility] [address] [place] [address] 02 May, 2016 Left wrist pain M25.532 and Left wrist sprain, initial encounter S63.502A [place] [address] [place] [address] 02 May, 2016 General medical exam Z00.00 [place] [address] [address] 12 Mar, 2016 Encounter for routine adult health examination with abnormal findings Z00.01 ; Body mass index (BMI) of 40.0-44.9 in adult Z68.41 ; Morbid (severe) obesity due to excess calories E66.01 ; History of IBS Z87.19 and Family history of colon cancer requiring screening colonoscopy Z80.0 [place] [address] [address] [place] [id number] [address] [place] [phone] Oct, [place] [address] [address] Oct, Other acute postprocedural p ain G89.18 ; Pain in left knee M25.562 ; Family history of colon cancer requiring screening colonoscopy Z80.0 and Hyperpigmentation L81.9 [place] [address] [address] [place] [address] [place] [address] May, [facility] [address] [place] [id number] [address] [place] [address] May, Left knee injury S89.92XA [place] [address] [address] Apr, [facility] [address] [address] Apr, Left knee injury S89.92XA an d Varicosities I86.8 [place] [address] [address] Mar, [facility] [address] [address] Mar, Acute pain of left knee M25. 562 and Strain of left knee, initial encounter S86.912A [place] [address] [address] [place] [id number] [address] [place] [address] Mar, Lower abdominal tenderness R 10.819 and Breast tenderness N64.4 [place] [address] [address] Feb, [place] [address] [address] Feb, Well woman exam Z01.419 ; Va [...] and Complex cyst of left ovary N83.29 [place] [address] [address] [place] [id number] [address] [place] [address] Feb, Abdominal pain R10.9 and Pel renetta pain R10.2 [facility] [address] [id number] [address] [place] [phone] Feb, [facility] [address] [id number] [address] [place] [phone] Feb, [facility] [address] [id number] [address] [place] [phone] Feb, General medical exam Z00.00 ; Right upper quadrant pain R10.11 and History of borderline diabetes mellitus Z87.898 [facility] [address] [id number] [address] [place] [id number] Feb, Right upper quadrant pain R1 0.11 [facility] [address] [id number] [address] [place] [phone] 28 Jun, [address] [facility] [address] [id number] [address] [place] [phone] 14 Jun, 2014 [facility] [address] [id number] [address] [place] [phone] Jun, [facility] [address] [id number] [address] [place] [phone] May, [facility] [address] [id number] [address] [place] [phone] May, [facility] [address] [id number] [address] [place] [phone] Apr, [facility] [address] [id number] [address] [place] [phone] Apr, [facility] [address] [id number] [address] [place] [id number] Mar, [facility] [address] [id number] [address] [place] [phone] Mar, [facility] [address] [id number] [address] [place] [address], [place] [address] Mar, [facility] [address] [id number] [address] [place] [address], [place] [address] Mar, [facility] [address] [id number] [address] [place] [address], [place] [address] Mar, [facility] [address] [id number] [address] [place] [address], [place] [address] Mar, [facility] [address] [id number] [address] [place] [address], [place] [address] Mar, [facility] [address] [id number] [address] [place] [address], [place] [address] Feb, [facility] [address] [id number] [address] [place] [address], [place] [address] Feb, [facility] [address] [id number] [address] [place] [address], [place] [address] Feb, [facility] [address] [id number] [address] [place] [address], [place] [address] Feb, [facility] [address] [id number] [address] [place] [address], [place] [address] Feb, [facility] [address] [id number] [address] [place] [address], [place] [address] Jan, [facility] [address] [id number] [address] [place] [address], [place] [address] Jan, [facility] [address] [id number] [address] [place] [address], [place] [address] Oct, [facility] [address] [id number] [address] [place] [address], [place] [address] Oct, [facility] [address] [id number] [address] [place] [address], [place] [address] Sep, [facility] [address] [id number] [address] [place] [address], [place] [address] Sep, [facility] [address] [id number] [address] [place] [address], [place] [address] Aug, [facility] [address] [id number] [address] [place] [address], [place] [address] Aug, [facility] [address] [id number] [address] [place] [address], [place] [address] Aug, [facility] [address] [id number] [address] [place] [address], [place] [address] Apr, [facility] [address] [id number] [address] [place] [address], [place] [address] Apr, [facility] [address] [id number] [address] [place] [address], [place] [address] Apr, [facility] [address] [id number] [address] [place] [address], [place] [address] Apr, [facility] [address] [id number] [address] [place] [address], [place] [address] Apr, [facility] [address] [id number] [address] [place] [address], [place] [address] Mar, [facility] [address] [id number] [address] [place] [address], [place] [address] Mar, [facility] [address] [id number] [address] [place] [address], [place] [address] Mar, [facility] [address] [id number] [address] [place] [address], [place] [address] Mar, [facility] [address] [id number] [address] [place] [address], [place] [address] Mar, [facility] [address] [id number] [address] [place] [address], [place] [address] Mar, [facility] [address] [id number] [address] [place] [address], [place] [address] Mar, [facility] [address] [id number] [address] [place] [phone] Mar, [facility] [address] [id number] [address] [place] [phone] Mar, [facility] [address] [id number] [address] [place] [id number] Oct, [facility] [address] [id number] [address] [place] [phone] July, [facility] [address] [id number] [address] [place] [phone] July, [facility] [address] [id number] [address] [place] [phone] Jun, [facility] [address] [id number] [address] [place] [phone] May, [facility] [address] [id number] [address] [place] [phone] Feb, [facility] [address] [id number] [address] [place] [phone] Feb, [facility] [address] [id number] [address] [place] [phone] July, [facility] [address] [id number] [address] [place] [phone] Apr, [facility] [address] [id number] [address] [place] [phone] Jan, IMMUNIZATIONS No Known Immunizations SOCIAL HISTORY Never Assessed REASON FOR VISIT [facility] PLAN OF CARE VITAL SIGNS MEDICATIONS Medication Instructions Dosage Frequency Start Date End Date Duration S tatus Doxycycline Hyclate 100 mg 1 tablet by Oral rout e 2 times per day for 10 days Feb, Active metformin 500 mg 1 tablet by Oral rou te 1 time per day needs f/u after 3 months Apr, Active Flexeril 10 mg 1 tablet by Oral route 3 times per day PRN muscle spasm Apr, Active RESULTS No Results PROCEDURES No Known [...]
--- OUTSIDE RECORDS SUMMARY | 2019-03-20 23:12 | XMS REPORT ---
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 [address] [address] Mar, Fever R50.9 and Acute nasoph aryngitis J00 [facility] [address] [address] Mar, [place] [address] [address] Nov, Muscle ache M79.1 [place] [address] [address] Sep, Dysuria R30.0 [place] [address] [address] Aug, Vasomotor symptoms due to me nopause N95.1 ; Overweight (BMI 25.0- 29.9) E66.3 and Varicosities I86.8 [facility] [address] [address] Jun, [facility] [address] [address] Apr, Cough R05 and Influenza J11. 1 [facility] [address] [place] [id number] [address] [place] [address] 06 Apr, 2017 Screening breast examination Z12.31 ; Breast tenderness in female N64.4 ; Other obesity due to excess calories E66.09 and Body mass index (BMI) of 31.0-31.9 in adult Z68.31 [facility] [address] [address] 01 Apr, 2017 Gastroenteritis K52.9 [facility] [address] [facility] [id number] [address] [place] [id number] Mar, Dental examination Z01.20 an d Dental caries K02.9 [facility] [address] [address] Feb, Gum abscess K05.219 [place] [address] [address] Feb, [place] [address] [address] Dec, Varicosities I86.8 [place] [address] [address] Sep, [place] [address] [address] Sep, [place] [address] [address] Sep, Anxiety state, unspecified F 41.1 [place] [address] [address] Aug, Unspecified mood [affective] disorder F39 and Eating disorder, unspecified F50.9 [place] [address] [address] [place] [id number] [address] [place] [address] Aug, Anxiety state, unspecified F 41.1 [place] [address] [address] 13 Jun, 2016 [facility] [address] [facility] [id number] [address] [place] [address] 11 Jun, 2016 Fatigue, unspecified type R5 3.83 [place] [address] [facility] [id number] [address] [place] [address] 07 Jun, 2016 Abdominal pain, left lower q uadrant R10.32 ; Candidiasis, cutaneous B37.2 ; Fatigue, unspecified type R53.83 ; Morbid (severe) obesity due to excess calories E66.01 ; General medical exam Z00.00 and Diverticulitis of large intestine without perforation or abscess without bleeding K57.32 [facility] [address] [facility] [id number] [address] [place] [address] 02 May, 2016 Left wrist pain M25.532 and Left wrist sprain, initial encounter S63.502A [place] [address] [address] [place] [id number] [address] [place] [address] 02 May, 2016 General medical exam Z00.00 [place] [address] [address] [place] [id number] [address] [place] [address] 12 Mar, 2016 Encounter for routine adult health examination with abnormal findings Z00.01 ; Body mass index (BMI) of 40.0-44.9 in adult Z68.41 ; Morbid (severe) obesity due to excess calories E66.01 ; History of IBS Z87.19 and Family history of colon cancer requiring screening colonoscopy Z80.0 [place] [address] [place] [id number] [address] [place] [address] Oct, [place] [address] [facility] [id number] [address] [place] [address] Oct, Other acute postprocedural p ain G89.18 ; Pain in left knee M25.562 ; Family history of colon cancer requiring screening colonoscopy Z80.0 and Hyperpigmentation L81.9 [place] [address] [address] [place] [id number] [address] [place] [address] May, [place] [address] [place] [id number] [address] [place] [address] May, Left knee injury S89.92XA [place] [address] [address] Apr, [place] [address] [address] Apr, Left knee injury S89.92XA an d Varicosities I86.8 [place] [address] [address] Mar, [facility] [address] [address] Mar, Acute pain of left knee M25. 562 and Strain of left knee, initial encounter S86.912A [place] [address] [address] Mar, Lower abdominal tenderness R 10.819 and Breast tenderness N64.4 [place] [address] [address] Feb, [place] [address] [address] Feb, Well woman exam Z01.419 ; Va [...] and Complex cyst of left ovary N83.29 [place] [address] [address] [place] [id number] [address] [place] [address] Feb, Abdominal pain R10.9 and Pel renetta pain R10.2 [facility] [address] [id number] [address] [place] [address] Feb, [facility] [address] [id number] [address] [place] [address] Feb, [facility] [address] [id number] [address] [place] [address] Feb, General medical exam Z00.00 ; Right upper quadrant pain R10.11 and History of borderline diabetes mellitus Z87.898 [facility] [address] [id number] [address] [place] [address] Feb, Right upper quadrant pain R1 0.11 [facility] [address] [id number] [address] [place] [address] 28 Jun, 2014 Lumbago 724.2 [facility] [address] [id number] [address] [place] [address] 14 Jun, 2014 [facility] [address] [id number] [address] [place] [address] Jun, [facility] [address] [id number] [address] [place] [address] May, [facility] [address] [id number] [address] [place] [address] May, [facility] [address] [id number] [address] [place] [address] Apr, [facility] [address] [id number] [address] [place] [address] Apr, [facility] [address] [id number] [address] [place] [address] Mar, [facility] [address] [id number] [address] [place] [address] Mar, [facility] [address] [id number] [address] [place] [address] Mar, [facility] [address] [id number] [address] [place] [address], [place] [address] Mar, [facility] [address] [id number] [address] [place] [address], [place] [address] Mar, [facility] [address] [id number] [address] [place] [address], [place] [address] Mar, [facility] [address] [id number] [address] [place] [address], [place] [address] Mar, [facility] [address] [id number] [address] [place] [address], [place] [address] Feb, [facility] [address] [id number] [address] [place] [address], [place] [address] Feb, [facility] [address] [id number] [address] [place] [address], [place] [address] Feb, [facility] [address] [id number] [address] [place] [address], [place] [address] Feb, [facility] [address] [id number] [address] [place] [address], [place] [address] Feb, [facility] [address] [id number] [address] [place] [address], [place] [address] Jan, [facility] [address] [id number] [address] [place] [address], [place] [address] Jan, [facility] [address] [id number] [address] [place] [address], [place] [address] Oct, [facility] [address] [id number] [address] [place] [address], [place] [address] Oct, [facility] [address] [id number] [address] [place] [address], [place] [address] Sep, [facility] [address] [id number] [address] [place] [address], [place] [address] Sep, [facility] [address] [id number] [address] [place] [address], [place] [address] Aug, [facility] [address] [id number] [address] [place] [address], [place] [address] Aug, [facility] [address] [id number] [address] [place] [address], [place] [address] Aug, [facility] [address] [id number] [address] [place] [address], [place] [address] Apr, [facility] [address] [id number] [address] [place] [address], [place] [address] Apr, [facility] [address] [id number] [address] [place] [address], [place] [address] Apr, [facility] [address] [id number] [address] [place] [address], [place] [address] Apr, [facility] [address] [id number] [address] [place] [address], [place] [address] Apr, [facility] [address] [id number] [address] [place] [address], [place] [address] Mar, [facility] [address] [id number] [address] [place] [address], [place] [address] Mar, [facility] [address] [id number] [address] [place] [address], [place] [address] Mar, [facility] [address] [id number] [address] [place] [address], [place] [address] Mar, [facility] [address] [id number] [address] [place] [address], [place] [address] Mar, [facility] [address] [id number] [address] [place] [address], [place] [address] Mar, [facility] [address] [id number] [address] [place] [address], [place] [address] Mar, [facility] [address] [id number] [address] [place] [address], [place] [address] Mar, [facility] [address] [id number] [address] [place] [address] Mar, [facility] [address] [id number] [address] [place] [address] Oct, [facility] [address] [id number] [address] [place] [address] July, [facility] [address] [id number] [address] [place] [address] July, [facility] [address] [id number] [address] [place] [address] Jun, [facility] [address] [id number] [address] [place] [address] May, [facility] [address] [id number] [address] [place] [address] Feb, [facility] [address] [id number] [address] [place] [address] Feb, [facility] [address] [id number] [address] [place] [address] July, [facility] [address] [id number] [address] [place] [address] Apr, [facility] [address] [id number] [address] [place] [address] Jan, IMMUNIZATIONS No Known Immunizations SOCIAL HISTORY Never Assessed REASON FOR VISIT EMR-[facility] [place] PLAN OF CARE VITAL SIGNS MEDICATIONS No [...]
--- OUTSIDE RECORDS SUMMARY | 2019-03-20 23:12 | XMS REPORT ---
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 5559014 09 Problem Anxiety state, unspecified F41.1 Act flores [id number] Problem Vasomotor symptoms due to menopause N95.1 Active [id number] ALLERGIES No Information ENCOUNTERS Encounter Location Date Diagnosis [facility] [address] [address] Mar, Fever R50.9 and Acute nasoph aryngitis J00 [facility] [address] [address] Mar, [place] [address] [address] Nov, Muscle ache M79.1 [place] [address] [address] Sep, Dysuria R30.0 [place] [address] [address] Aug, Vasomotor symptoms due to me nopause N95.1 ; Overweight (BMI 25.0- 29.9) E66.3 and Varicosities I86.8 [facility] [address] [address] Jun, [facility] [address] [address] Apr, Cough R05 and Influenza J11. 1 [facility] [address] [place] [id number] [place] [address] 06 Apr, 2017 Screening breast examination Z12.31 ; Breast tenderness in female N64.4 ; Other obesity due to excess calories E66.09 and Body mass index (BMI) of 31.0-31.9 in adult Z68.31 [facility] [address] [address] 01 Apr, 2017 Gastroenteritis K52.9 [facility] [address] [facility] [id number] [address] [place] [id number] Mar, Dental examination Z01.20 an d Dental caries K02.9 [facility] [address] [address] Feb, Gum abscess K05.219 [place] [address] [address] Feb, [place] [address] [address] Dec, Varicosities I86.8 [place] [address] [address] Sep, [place] [address] [address] Sep, [place] [address] [address] Sep, Anxiety state, unspecified F 41.1 [place] [address] [address] Aug, Unspecified mood [affective] disorder F39 and Eating disorder, unspecified F50.9 [place] [address] [place] [id number] [address] [place] [address] Aug, Anxiety state, unspecified F 41.1 [place] [address] [address] 13 Jun, 2016 [facility] [address] [facility] [id number] [address] [place] [address] 11 Jun, 2016 Fatigue, unspecified type R5 3.83 [place] [address] [facility] [id number] [address] [place] [address] 07 Jun, 2016 Abdominal pain, left lower q uadrant R10.32 ; Candidiasis, cutaneous B37.2 ; Fatigue, unspecified type R53.83 ; Morbid (severe) obesity due to excess calories E66.01 ; General medical exam Z00.00 and Diverticulitis of large intestine without perforation or abscess without bleeding K57.32 [facility] [address] [facility] [id number] [address] [place] [address] 02 May, 2016 Left wrist pain M25.532 and Left wrist sprain, initial encounter S63.502A [place] [address] [place] [id number] [address] [place] [address] 02 May, 2016 General medical exam Z00.00 [place] [address] [place] [id number] [address] [place] [address] 12 Mar, 2016 Encounter for routine adult health examination with abnormal findings Z00.01 ; Body mass index (BMI) of 40.0-44.9 in adult Z68.41 ; Morbid (severe) obesity due to excess calories E66.01 ; History of IBS Z87.19 and Family history of colon cancer requiring screening colonoscopy Z80.0 [place] [address] [place] [id number] [address] [place] [address] Oct, [place] [address] [address] [facility] [id number] [address] [place] [address] Oct, Other acute postprocedural p ain G89.18 ; Pain in left knee M25.562 ; Family history of colon cancer requiring screening colonoscopy Z80.0 and Hyperpigmentation L81.9 [place] [address] [place] [id number] [address] [place] [address] May, [place] [address] [place] [id number] [address] [place] [address] May, Left knee injury S89.92XA [place] [address] [address] Apr, [place] [address] [address] Apr, Left knee injury S89.92XA an d Varicosities I86.8 [place] [address] [address] Mar, [facility] [address] [address] Mar, Acute pain of left knee M25. 562 and Strain of left knee, initial encounter S86.912A [place] [address] [address] Mar, Lower abdominal tenderness R 10.819 and Breast tenderness N64.4 [place] [address] [address] Feb, [place] [address] [address] Feb, Well woman exam Z01.419 ; Va [...] and Complex cyst of left ovary N83.29 [place] [address] [place] [id number] [place] [address] Feb, Abdominal pain R10.9 and Pel renetta pain R10.2 [facility] [address] [id number] [address] [place] [address] Feb, [facility] [address] [id number] [address] [place] [address] Feb, [facility] [address] [id number] [address] [place] [address] Feb, General medical exam Z00.00 ; Right upper quadrant pain R10.11 and History of borderline diabetes mellitus Z87.898 [facility] [address] [id number] [address] [place] [address] Feb, Right upper quadrant pain R1 0.11 [facility] [address] [id number] [address] [place] [address] 28 Jun, 2014 Lumbago 724.2 [facility] [address] [id number] [address] [place] [address] 14 Jun, 2014 [facility] [address] [id number] [address] [place] [address] Jun, [facility] [address] [id number] [address] [place] [address] May, [facility] [address] [id number] [address] [place] [address] May, [facility] [address] [id number] [address] [place] [address] Apr, [facility] [address] [id number] [address] [place] [address] Apr, [facility] [address] [id number] [address] [place] [address] Mar, [facility] [address] [id number] [address] [place] [address] Mar, [facility] [address] [id number] [address] [place] [address] Mar, [facility] [address] [id number] [address] [place] [address], [place] [address] Mar, [facility] [address] [id number] [address] [place] [address], [place] [address] Mar, [facility] [address] [id number] [address] [place] [address], [place] [address] Mar, [facility] [address] [id number] [address] [place] [address], [place] [address] Mar, [facility] [address] [id number] [address] [place] [address], [place] [address] Feb, [facility] [address] [id number] [address] [place] [address], [place] [address] Feb, [facility] [address] [id number] [address] [place] [address], [place] [address] Feb, [facility] [address] [id number] [address] [place] [address], [place] [address] Feb, [facility] [address] [id number] [address] [place] [address], [place] [address] Feb, [facility] [address] [id number] [address] [place] [address], [place] [address] Jan, [facility] [address] [id number] [address] [place] [address], [place] [address] Jan, [facility] [address] [id number] [address] [place] [address], [place] [address] Oct, [facility] [address] [id number] [address] [place] [address], [place] [address] Oct, [facility] [address] [id number] [address] [place] [address], [place] [address] Sep, [facility] [address] [id number] [address] [place] [address], [place] [address] Sep, [facility] [address] [id number] [address] [place] [address], [place] [address] Aug, [facility] [address] [id number] [address] [place] [address], [place] [address] Aug, [facility] [address] [id number] [address] [place] [address], [place] [address] Aug, [facility] [address] [id number] [address] [place] [address], [place] [address] Apr, [facility] [address] [id number] [address] [place] [address], [place] [address] Apr, [facility] [address] [id number] [address] [place] [address], [place] [address] Apr, [facility] [address] [id number] [address] [place] [address], [place] [address] Apr, [facility] [address] [id number] [address] [place] [address], [place] [address] Apr, [facility] [address] [id number] [address] [place] [address], [place] [address] Mar, [facility] [address] [id number] [address] [place] [address], [place] [address] Mar, [facility] [address] [id number] [address] [place] [address], [place] [address] Mar, [facility] [address] [id number] [address] [place] [address], [place] [address] Mar, [facility] [address] [id number] [address] [place] [address], [place] [address] Mar, [facility] [address] [id number] [address] [place] [address], [place] [address] Mar, [facility] [address] [id number] [address] [place] [address], [place] [address] Mar, [facility] [address] [id number] [address] [place] [address], [place] [address] Mar, [facility] [address] [id number] [address] [place] [address] Mar, [facility] [address] [id number] [address] [place] [address] Oct, [facility] [address] [id number] [address] [place] [address] July, [facility] [address] [id number] [address] [place] [address] July, [facility] [address] [id number] [address] [place] [address] Jun, [facility] [address] [id number] [address] [place] [address] May, [facility] [address] [id number] [address] [place] [address] Feb, [facility] [address] [id number] [address] [place] [address] Feb, [facility] [address] [id number] [address] [place] [address] July, [facility] [address] [id number] [address] [place] [address] Apr, [facility] [address] [id number] [address] [place] [address] Jan, IMMUNIZATIONS No Known Immunizations SOCIAL HISTORY Never Assessed REASON FOR VISIT [facility]MR[facility] [place]AN OF CARE VITAL SIGNS MEDICATIONS No [...]
--- OUTSIDE RECORDS SUMMARY | 2019-03-20 23:13 | XMS REPORT | Continuity of Care Document ---
Author Organization Unknown Address Unknown Phone Unavailable Allergies Active Description Code Type Severity Reaction Onset Reported/Identified Relationship to Patient Clinical Status Yes NKANo Known Allergies NKA Miscellaneous Allergy Mild N/A 07/24/2016 Yes No Known Drug Allergies [id number] Drug Allergy Unknown N/A 11/10/2016 Medications There is no data. Problems Date Dx Coded Attending Type Code Diagnosis Diagnosed By 01/26/2009 V72.31 Cer vix Sample Taken For Pap Smear 01/26/2009 ADELINE BASSETT APRN V72.31 Cervix Sample Taken For Pap Smear 01/26/2009 V72.31 Cer vix Sample Taken For Pap Smear 01/26/2009 V72.31 Cer vix Sample Taken For Pap Smear 01/26/2009 VERONIQUE VELA APRN R V72.31 Cervix Sample Taken For Pap Smear 01/26/2009 ROLY POPE DO V72.31 Cervix Sample Taken For Pap Smear 01/26/2009 BERTHA RIOS APRN S V72.31 Cervix Sample Taken For Pap Smear 01/26/2009 ROLY POPE DO K V72.31 Cervix Sample Taken For Pap Smear 01/26/2009 MIRIAN SENIOR INFRASTRUCTURE ARCHITECT, VERONIQUE R V72.31 Cervix Sample Taken For Pap Smear 01/26/2009 JARON VELA APRNINA R V72.31 Cervix Sample Taken For Pap Smear 01/26/2009 MIRIAN MEEHAN VERONIQUE R V72.31 Cervix Sample Taken For Pap Smear 01/26/2009 MIRIAN MEEHAN, VERONIQUE R V72.31 Cervix Sample Taken For Pap Smear 05/11/2009 009.1 PRATIBHA ROENTERITIS INFECT 05/11/2009 ADELINE BASSETT APRN 009.1 GASTROENTERITIS INFECT 05/11/2009 009.1 PRATIBHA ROENTERITIS INFECT 05/11/2009 009.1 PRATIBHA ROENTERITIS INFECT 05/11/2009 VERONIQUE VELA APRN R 009.1 GASTROENTERITIS INFECT 05/11/2009 ROLY POPE DO 009.1 GASTROENTERITIS INFECT 05/11/2009 GABRIEL SENIOR INFRASTRUCTURE ARCHITECT, BERTHA S 009.1 GASTROENTERITIS INFECT 05/11/2009 ROLY POPE DO K 009.1 GASTROENTERITIS INFECT 05/11/2009 MIRAIN SENIOR INFRASTRUCTURE ARCHITECT, VERONIQUE R 009.1 GASTROENTERITIS INFECT 05/11/2009 MIRIAN SENIOR INFRASTRUCTURE ARCHITECT, VERONIQUE R 009.1 GASTROENTERITIS INFECT 05/11/2009 MIRIAN SENIOR INFRASTRUCTURE ARCHITECT, VERONIQUE R 009.1 GASTROENTERITIS INFECT 05/11/2009 MIRIAN SENIOR INFRASTRUCTURE ARCHITECT, VERONIQUE R 009.1 GASTROENTERITIS INFECT 07/24/2009 Ot 272.4 07/24/2009 Ot 724.5 07/24/2009 Ot 786.50 07/24/2009 Ot 786.52 08/10/2009 716.90 ART HRITIS/ ARTHROPATHY, UNSPECIFIED 08/10/2009 724.5 BACK ACHE UNSPECIFIED 08/10/2009 ADELINE BASSETT APRN 716.90 ARTHRITIS/ ARTHROPATHY, UNSPECIFIED 08/10/2009 ADELINE BASSETT APRN 724.5 BACKACHE UNSPECIFIED 08/10/2009 716.90 ART HRITIS/ ARTHROPATHY, UNSPECIFIED 08/10/2009 724.5 BACK ACHE UNSPECIFIED 08/10/2009 716.90 ART HRITIS/ ARTHROPATHY, UNSPECIFIED 08/10/2009 724.5 BACK ACHE UNSPECIFIED 08/10/2009 MIRIAN MEEHAN, VERONIQUE R 716.90 ARTHRITIS/ ARTHROPATHY, UNSPECIFIED 08/10/2009 MIRIAN MEEHAN, VERONIQUE R 724.5 BACKACHE UNSPECIFIED 08/10/2009 NOEL POPE DOA K 716.90 ARTHRITIS/ ARTHROPATHY, UNSPECIFIED 08/10/2009 NOEL POPE DOA K 724.5 BACKACHE UNSPECIFIED 08/10/2009 BERTHA RIOS APRN S 716.90 ARTHRITIS/ ARTHROPATHY, UNSPECIFIED 08/10/2009 TUAN RIOS APRNA S 724.5 BACKACHE UNSPECIFIED 08/10/2009 POPE DO ROLY K 716.90 ARTHRITIS/ ARTHROPATHY, UNSPECIFIED 08/10/2009 POPE DO ROLY K 724.5 BACKACHE UNSPECIFIED 08/10/2009 MIRIAN MEEHAN, VERONIQUE R 716.90 ARTHRITIS/ ARTHROPATHY, UNSPECIFIED 08/10/2009 MIRIAN MEEHAN, VERONIQUE R 724.5 BACKACHE UNSPECIFIED 08/10/2009 MIRIAN MEEHAN, VERONIQUE R 716.90 ARTHRITIS/ ARTHROPATHY, UNSPECIFIED 08/10/2009 MIRIAN SENIOR INFRASTRUCTURE ARCHITECT, VERONIQUE R 724.5 BACKACHE UNSPECIFIED 08/10/2009 MIRIAN SENIOR INFRASTRUCTURE ARCHITECT, VERONIQUE R 716.90 ARTHRITIS/ ARTHROPATHY, UNSPECIFIED 08/10/2009 MIRIAN SENIOR INFRASTRUCTURE ARCHITECT, VERONIQUE R 724.5 BACKACHE UNSPECIFIED 08/10/2009 MIRIAN SENIOR INFRASTRUCTURE ARCHITECT, VERONIQUE R 716.90 ARTHRITIS/ ARTHROPATHY, UNSPECIFIED 08/10/2009 MIRIAN SENIOR INFRASTRUCTURE ARCHITECT, VERONIQUE R 724.5 BACKACHE UNSPECIFIED 09/10/2009 717.7 JAMIL DROMALACIA OF [place] 09/10/2009 836.0 TEAR OF MEDIAL CARTILAGE OR MENISCUS OF KNEE, CURRENT 09/10/2009 ADELINE BASSETT APRN 717.7 CHONDROMALACIA OF [place] 09/10/2009 ADELINE BASSETT APRN 836.0 TEAR OF MEDIAL CARTILAGE OR MENISCUS OF KNEE, CURRENT 09/10/2009 717.7 JAMIL DROMALACIA OF [place] 09/10/2009 836.0 TEAR OF MEDIAL CARTILAGE OR MENISCUS OF KNEE, CURRENT 09/10/2009 717.7 JAMIL DROMALACIA OF [place] 09/10/2009 836.0 TEAR OF MEDIAL CARTILAGE OR MENISCUS OF KNEE, CURRENT 09/10/2009 MIRIAN NEALN, VERONIQUE R 717.7 CHONDROMALACIA OF [place] 09/10/2009 MIRIAN NEALN, VERONIQUE R 836.0 TEAR OF MEDIAL CARTILAGE OR MENISCUS OF KNEE, CURRENT 09/10/2009 TOSHIA DO ROLY K 717.7 CHONDROMALACIA OF [place] 09/10/2009 POPE DO ROLY K 836.0 TEAR OF MEDIAL CARTILAGE OR MENISCUS OF KNEE, CURRENT 09/10/2009 GABRIEL MEEHAN BERTHA S 717.7 CHONDROMALACIA OF [place] 09/10/2009 GABRIEL SENIOR INFRASTRUCTURE ARCHITECT, BERTHA S 836.0 TEAR OF MEDIAL CARTILAGE OR MENISCUS OF KNEE, CURRENT 09/10/2009 POPE DO ROLY K 717.7 CHONDROMALACIA OF [place] 09/10/2009 POPE DO, ROLY K 836.0 TEAR OF MEDIAL CARTILAGE OR MENISCUS OF KNEE, CURRENT 09/10/2009 MIRIAN SENIOR INFRASTRUCTURE ARCHITECT, VERONIQUE R 717.7 CHONDROMALACIA OF [place] 09/10/2009 MIRIAN NEALN, VERONIQUE R 836.0 TEAR OF MEDIAL CARTILAGE OR MENISCUS OF KNEE, CURRENT 09/10/2009 JARON VELA APRNINA R 717.7 CHONDROMALACIA OF [place] 09/10/2009 JARON VELA APRNINA R 836.0 TEAR OF MEDIAL CARTILAGE OR MENISCUS OF KNEE, CURRENT 09/10/2009 JARON VELA APRNINA R 717.7 CHONDROMALACIA OF [place] 09/10/2009 JARON VELA APRNINA R 836.0 TEAR OF MEDIAL CARTILAGE OR MENISCUS OF KNEE, CURRENT 09/10/2009 VERONIQUE VELA APRN R 717.7 CHONDROMALACIA OF [place] 09/10/2009 JARON VELA APRNINA R 836.0 TEAR OF MEDIAL CARTILAGE OR MENISCUS OF KNEE, CURRENT 03/07/2010 Ot 787.91 03/07/2010 Ot 789.09 06/20/2012 ADELINE BASSETT APRN 719.46 PAIN IN JOINT INVOLVING LOWER LEG 06/20/2012 719.46 [place] N IN JOINT INVOLVING LOWER LEG 06/20/2012 719.46 [place] N IN JOINT INVOLVING LOWER LEG 06/20/2012 VERONIQUE VELA APRN R 719.46 PAIN IN JOINT INVOLVING LOWER LEG 06/20/2012 ROLY POPE DO 719.46 PAIN IN JOINT INVOLVING LOWER LEG 06/20/2012 BERTHA RIOS APRN 719.46 PAIN IN JOINT INVOLVING LOWER LEG 06/20/2012 ROLY POPE DO 719.46 PAIN IN JOINT INVOLVING LOWER LEG 06/20/2012 VERONIQUE VELA APRN R 719.46 PAIN IN JOINT INVOLVING LOWER LEG 06/20/2012 VERONIQUE VELA APRN R 719.46 PAIN IN JOINT INVOLVING LOWER LEG 06/20/2012 VERONIQUE VELA APRN R 719.46 PAIN IN JOINT INVOLVING LOWER LEG 06/20/2012 VERONIQUE VELA APRN R 719.46 PAIN IN JOINT INVOLVING LOWER LEG 08/24/2012 726.73 JOANNE L SPUR 08/24/2012 726.73 JOANNE L SPUR 08/24/2012 VERONIQUE VELA APRN R 726.73 HEEL SPUR 08/24/2012 ROLY POPE DO 726.73 HEEL SPUR 08/24/2012 BERTHA RIOS APRN 726.73 HEEL SPUR 08/24/2012 ROLY POPE DO 726.73 HEEL SPUR 08/24/2012 MIRIAN SENIOR INFRASTRUCTURE ARCHITECT, VERONIQUE R 726.73 HEEL SPUR 08/24/2012 MIRIAN SENIOR INFRASTRUCTURE ARCHITECT, VERONIQUE R 726.73 HEEL SPUR 08/24/2012 MIRIAN NEALN, VERONIQUE R 726.73 HEEL SPUR 08/24/2012 MIRIAN SENIOR INFRASTRUCTURE ARCHITECT, VERONIQUE R 726.73 HEEL SPUR 04/19/2013 MIRIAN MEEHAN, VERONIQUE R 780.4 DIZZINESS AND VERTIGO 04/19/2013 MIRIAN MEEHAN VERONIQUE R 783.1 ABNORMAL WEIGHT GAIN 04/19/2013 POPE DO, ROLY K 780.4 DIZZINESS AND VERTIGO 04/19/2013 POPE DO, ROLY K 783.1 ABNORMAL WEIGHT GAIN 04/19/2013 TUAN RIOS APRNA S 780.4 DIZZINESS AND VERTIGO 04/19/2013 TUAN RIOS APRNA S 783.1 ABNORMAL WEIGHT GAIN 04/19/2013 POPE DO, ROLY K 780.4 DIZZINESS AND VERTIGO 04/19/2013 POPE DO, ROLY K 783.1 ABNORMAL WEIGHT GAIN 04/19/2013 MIRIAN MEEHAN VERONIQUE R 780.4 DIZZINESS AND VERTIGO 04/19/2013 MIRIAN MEEHAN, VERONIQUE R 783.1 ABNORMAL WEIGHT GAIN 04/19/2013 MIRIAN NEALN, VERONIQUE R 780.4 DIZZINESS AND VERTIGO 04/19/2013 MIRIAN MEEHAN, VERONIQUE R 783.1 ABNORMAL WEIGHT GAIN 04/19/2013 MIRIAN NEALN, VERONIQUE R 780.4 DIZZINESS AND VERTIGO 04/19/2013 MIRIAN MEEHAN, VERONIQUE R 783.1 ABNORMAL WEIGHT GAIN 04/19/2013 MIRIAN MEEHAN VERONIQUE R 780.4 DIZZINESS AND VERTIGO 04/19/2013 MIRIAN MEEHAN VERONIQUE R 783.1 ABNORMAL WEIGHT GAIN 08/05/2013 JAELYN MORALES SENIOR INFRASTRUCTURE ARCHITECT Ot 454 .9 08/05/2013 JAELYN MORALES APRN Ot 729 .5 08/26/2013 JAELYN MORALES APRN Ot 599 .0 08/26/2013 JAELYN MORALES APRN Ot 787.02 10/22/2013 BERTHA RIOS APRN S 729.4 PLANTAR FASCIITIS 10/22/2013 TOSHIA LEON, ROLY K 729.4 PLANTAR FASCIITIS 10/22/2013 JARON VELA APRNINA R 729.4 PLANTAR FASCIITIS 10/22/2013 MIRIAN SENIOR INFRASTRUCTURE ARCHITECT, VERONIQUE R 729.4 PLANTAR FASCIITIS 10/22/2013 MIRIAN SENIOR INFRASTRUCTURE ARCHITECT, VERONIQUE R 729.4 PLANTAR FASCIITIS 10/22/2013 MIRIAN SENIOR INFRASTRUCTURE ARCHITECT, VERONIQUE R 729.4 PLANTAR FASCIITIS 02/03/2014 TOSHIA DOROLY K 008.8 INTESTINAL INFECTION DUE TO OTHER ORGANISM NOT ELSEWHERE CLASSIFIED 02/03/2014 POPE DO, ROLY K 787.01 NAUSEA WITH VOMITING 02/03/2014 POPE DO, ROLY K 789.00 ABDOMINAL PAIN UNSPECIFIED SITE 02/03/2014 MIRIAN SENIOR INFRASTRUCTURE ARCHITECT, VERONIQUE R 008.8 INTESTINAL INFECTION DUE TO OTHER ORGANISM NOT ELSEWHE RE CLASSIFIED 02/03/2014 MIRIAN SENIOR INFRASTRUCTURE ARCHITECT, VERONIQUE R 787.01 NAUSEA WITH VOMITING 02/03/2014 MIRIAN NEALN, VERONIQUE R 789.00 ABDOMINAL PAIN UNSPECIFIED SITE 02/03/2014 MIRIAN NEALN, VERONIQUE R 008.8 INTESTINAL INFECTION DUE TO OTHER ORGANISM NOT ELSEWHE RE CLASSIFIED 02/03/2014 MIRIAN MEEHAN VERONIQUE R 787.01 NAUSEA WITH VOMITING 02/03/2014 MIRIAN NEALN VERONIQUE R 789.00 ABDOMINAL PAIN UNSPECIFIED SITE 02/03/2014 MIRIAN NEALN, VERONIQUE R 008.8 INTESTINAL INFECTION DUE TO OTHER ORGANISM NOT ELSEWHE RE CLASSIFIED 02/03/2014 MIRIAN SENIOR INFRASTRUCTURE ARCHITECT, VERONIQUE R 787.01 NAUSEA WITH VOMITING 02/03/2014 MIRIAN NEALN, VERONIQUE R 789.00 ABDOMINAL PAIN UNSPECIFIED SITE 02/03/2014 MIRIAN NEALN VERONIQUE R 008.8 INTESTINAL INFECTION DUE TO OTHER ORGANISM NOT ELSEWHE RE CLASSIFIED 02/03/2014 MIRIAN MEEHAN VERONIQUE R 787.01 NAUSEA WITH VOMITING 02/03/2014 MIRIAN NEALN VERONIQUE R 789.00 ABDOMINAL PAIN UNSPECIFIED SITE 03/04/2014 MIRIAN NEALN, VERONIQUE R 780.79 OTHER MALAISE AND FATIGUE 03/04/2014 MIRIAN SENIOR INFRASTRUCTURE ARCHITECT, VERONIQUE R 786.2 COUGH 03/04/2014 MIRIAN SENIOR INFRASTRUCTURE ARCHITECT, VERONIQUE R 780.79 OTHER MALAISE AND FATIGUE 03/04/2014 MIRIAN SENIOR INFRASTRUCTURE ARCHITECT, VERONIQUE R 786.2 COUGH 03/04/2014 MIRIAN SENIOR INFRASTRUCTURE ARCHITECT, VERONIQUE R 780.79 OTHER MALAISE AND FATIGUE 03/04/2014 MIRIAN NEALN, VERONIQUE R 786.2 COUGH 03/04/2014 MIRIAN SENIOR INFRASTRUCTURE ARCHITECT, VERONIQUE R 780.79 OTHER MALAISE AND FATIGUE 03/04/2014 MIRIAN SENIOR INFRASTRUCTURE ARCHITECT, VERONIQUE R 786.2 COUGH 05/01/2014 MIRIAN SENIOR INFRASTRUCTURE ARCHITECT, VERONIQUE R 723.1 CERVICALGIA 05/01/2014 MIRIAN SENIOR INFRASTRUCTURE ARCHITECT, VERONIQUE R 723.1 CERVICALGIA 05/01/2014 MIRIAN SENIOR INFRASTRUCTURE ARCHITECT, VERONIQUE R 723.1 CERVICALGIA 07/12/2014 Ot 717.3 07/12/2014 Ot 719.06 07/12/2014 JAELYN MORALES SENIOR INFRASTRUCTURE ARCHITECT Ot 724 .2 07/12/2014 JAELYN MORALES SENIOR INFRASTRUCTURE ARCHITECT Ot 724 .4 07/17/2014 MIRIAN NEALN, VERONIQUE R 724.2 LUMBAGO/ LOW BACK PAIN 07/17/2014 MIRIAN MEEHAN, VERONIQUE R 729.1 MYALGIA AND MYOSITIS UNSPECIFIED 11/24/2014 Ot 717.3 11/24/2014 Ot 719.06 11/24/2014 ADILIA RAHMAN Ot 723.1 11/24/2014 ADILIA RAHMAN Ot 847.0 11/24/2014 ADILIA RAMHAN Ot E000.8 11/24/2014 ADILIA RAHMAN Ot E928.9 [...] BOTH CERVIX AND UTER 03/31/2015 SARAHI ERVIN SENIOR INFRASTRUCTURE ARCHITECT Ot R10.11 05/20/2015 QAMAR GODOY SENIOR INFRASTRUCTURE ARCHITECT Ot N64.4 05/22/2015 SARAHI ERVIN SENIOR INFRASTRUCTURE ARCHITECT Ot R10.11 05/22/2015 QAMAR GODOY SENIOR INFRASTRUCTURE ARCHITECT Ot N64.4 06/01/2015 SARAHI ERVIN SENIOR INFRASTRUCTURE ARCHITECT Ot S89.92XA 06/01/2015 SARAHI ERVIN SENIOR INFRASTRUCTURE ARCHITECT Ot X58.XXXA 06/01/2015 SARAHI ERVIN SENIOR INFRASTRUCTURE ARCHITECT Ot Y99.8 09/10/2015 SARAHI ERVIN SENIOR INFRASTRUCTURE ARCHITECT Ot R10.11 RIGHT UPPER QUADRANT PAIN 09/10/2015 QAMAR GODOY SENIOR INFRASTRUCTURE ARCHITECT Ot N64.4 MASTODYNIA 09/10/2015 SARAHI ERVIN SENIOR INFRASTRUCTURE ARCHITECT Ot S89.92XA UNSPECIFIED INJURY OF LEFT LOWER LEG, IN 09/10/2015 SARAHI ERVIN SENIOR INFRASTRUCTURE ARCHITECT Ot X58.XXXA EXPOSURE TO OTHER SPECIFIED FACTORS, INI 09/10/2015 SARAHI ERVIN SENIOR INFRASTRUCTURE ARCHITECT Ot Y99.8 OTHER EXTERNAL CAUSE STATUS 09/10/2015 JUSTUS LIN DO Ot H92.02 OTALGIA, LEFT EAR 09/10/2015 JUSTUS LIN DO Ot J01.90 ACUTE SINUSITIS, UNSPECIFIED 09/10/2015 JUSTUS LIN DO Ot J4 0 BRONCHITIS, NOT SPECIFIED ACUTE OR CH 09/10/2015 JUSTUS LIN DO Ot M79.601 PAIN IN RIGHT ARM 09/11/2015 JUSTUS LIN DO Ot H92.02 OTALGIA, LEFT EAR 09/11/2015 JUSTUS LIN DO Ot J01.90 ACUTE SINUSITIS, UNSPECIFIED 09/11/2015 JUSTUS LIN DO Ot J4 0 BRONCHITIS, NOT SPECIFIED ACUTE OR CH 09/11/2015 JUSTUS LIN DO Ot M79.601 PAIN IN RIGHT ARM 09/12/2015 JUSTUS LIN DO Ot H92.02 OTALGIA, LEFT EAR 09/12/2015 JUSTUS LIN DO Ot J01.90 ACUTE SINUSITIS, UNSPECIFIED 09/12/2015 JUSTUS LIN DO Ot J4 0 BRONCHITIS, NOT SPECIFIED ACUTE OR CH 09/12/2015 JUSTUS LIN DO Ot M79.601 PAIN IN RIGHT ARM 11/19/2015 SARAHI ERVIN SENIOR INFRASTRUCTURE ARCHITECT Ot R10.11 RIGHT UPPER QUADRANT PAIN 11/23/2015 SARAHI ERVIN Anabel SENIOR INFRASTRUCTURE ARCHITECT Ot M25.562 PAIN IN LEFT KNEE 11/23/2015 SARAHI EVRIN Anabel SENIOR INFRASTRUCTURE ARCHITECT Ot 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] 11/25/2015 SARAHI ERVIN R SENIOR INFRASTRUCTURE ARCHITECT Ot M25.562 PAIN IN LEFT KNEE 11/29/2015 ARCADIO SARAHI Anabel SENIOR INFRASTRUCTURE ARCHITECT Ot M25.562 PAIN IN LEFT KNEE 03/08/2016 ARCADIO SARAHI Little SENIOR INFRASTRUCTURE ARCHITECT Ot R10.11 RIGHT UPPER QUADRANT PAIN 03/08/2016 SARAHI ERVIN R SENIOR INFRASTRUCTURE ARCHITECT Ot M25.562 PAIN IN LEFT KNEE 03/08/2016 ARCADIO SARAHI Anabel SENIOR INFRASTRUCTURE ARCHITECT Ot M25.562 PAIN IN LEFT KNEE 03/08/2016 ARCADIO SARAHI Anabel SENIOR INFRASTRUCTURE ARCHITECT Ot 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] 03/08/2016 ADILIA RAHMAN Ot J02.9 ACUTE PHARYNGITIS, UNSPECIFIED 03/08/2016 ADILIA RAHMAN Ot J20.9 ACUTE BRONCHITIS, UNSPECIFIED 03/08/2016 ADILIA RAHMAN Ot R11.2 NAUSEA WITH VOMITING, UNSPECIFIED 03/08/2016 ADILIA RAHMAN Ot R19.7 DIARRHEA, UNSPECIFIED 03/08/2016 SARAHI ERVIN SENIOR INFRASTRUCTURE ARCHITECT Ot R10.11 RIGHT UPPER QUADRANT PAIN 03/08/2016 QAMAR GODOY SENIOR INFRASTRUCTURE ARCHITECT Ot N64.4 MASTODYNIA 03/08/2016 SARAHI ERVIN SENIOR INFRASTRUCTURE ARCHITECT Ot S89.92XA UNSPECIFIED INJURY OF LEFT LOWER LEG, IN 03/08/2016 SARAHI ERVIN SENIOR INFRASTRUCTURE ARCHITECT Ot X58.XXXA EXPOSURE TO OTHER SPECIFIED FACTORS, INI 03/08/2016 SARAHI ERVIN SENIOR INFRASTRUCTURE ARCHITECT Ot Y99.8 OTHER EXTERNAL CAUSE STATUS 03/09/2016 ADILIA RAHMAN Ot J02.9 ACUTE PHARYNGITIS, UNSPECIFIED 03/09/2016 ADILIA RAHMAN Ot J20.9 ACUTE BRONCHITIS, UNSPECIFIED 03/09/2016 ADILIA RAHMAN L Ot R11.2 NAUSEA WITH VOMITING, UNSPECIFIED 03/09/2016 ADILIA RAHMAN Ot R19.7 DIARRHEA, UNSPECIFIED 04/21/2016 SARAHI ERVIN SENIOR INFRASTRUCTURE ARCHITECT Ot R10.11 RIGHT UPPER QUADRANT PAIN 04/21/2016 QAMAR GODOY SENIOR INFRASTRUCTURE ARCHITECT Ot N64.4 MASTODYNIA 04/21/2016 SARAHI ERVIN SENIOR INFRASTRUCTURE ARCHITECT Ot S89.92XA UNSPECIFIED INJURY OF LEFT LOWER LEG, IN 04/21/2016 SARAHI ERVIN SENIOR INFRASTRUCTURE ARCHITECT Ot X58.XXXA EXPOSURE TO OTHER SPECIFIED FACTORS, INI 04/21/2016 SARAHI ERVIN SENIOR INFRASTRUCTURE ARCHITECT Ot Y99.8 OTHER EXTERNAL CAUSE STATUS 04/21/2016 JAELYN MORALES SENIOR INFRASTRUCTURE ARCHITECT Ot E11 .9 TYPE 2 DIABETES MELLITUS WITHOUT COMPLIC 04/21/2016 JAELYN MORALES SENIOR INFRASTRUCTURE ARCHITECT Ot M54.41 LUMBAGO WITH SCIATICA, RIGHT SIDE 04/21/2016 JAELYN MORALES SENIOR INFRASTRUCTURE ARCHITECT Ot M54 .5 LOW BACK PAIN 04/22/2016 JAELYN MORALES SENIOR INFRASTRUCTURE ARCHITECT Ot E11 .9 TYPE 2 DIABETES MELLITUS WITHOUT COMPLIC 04/22/2016 JAELYN MORALES SENIOR INFRASTRUCTURE ARCHITECT Ot M54.41 LUMBAGO WITH SCIATICA, RIGHT SIDE 04/22/2016 JAELYN MORALES SENIOR INFRASTRUCTURE ARCHITECT Ot M54 .5 LOW BACK PAIN 04/27/2016 JAELYN MORALES SENIOR INFRASTRUCTURE ARCHITECT Ot E11 .9 TYPE 2 DIABETES MELLITUS WITHOUT COMPLIC 04/27/2016 JAELYN MORALES SENIOR INFRASTRUCTURE ARCHITECT Ot M54.41 LUMBAGO WITH SCIATICA, RIGHT SIDE 04/27/2016 JAELYN MORALES SENIOR INFRASTRUCTURE ARCHITECT Ot M54 .5 LOW BACK PAIN 04/29/2016 JAELYN MORALES SENIOR INFRASTRUCTURE ARCHITECT Ot E11 .9 TYPE 2 DIABETES MELLITUS WITHOUT COMPLIC 04/29/2016 JAELYN MORALES SENIOR INFRASTRUCTURE ARCHITECT Ot M54.41 LUMBAGO WITH SCIATICA, RIGHT SIDE 04/29/2016 JAELYN MORALES SENIOR INFRASTRUCTURE ARCHITECT Ot M54 .5 LOW BACK PAIN 07/21/2016 SARAHI ERVIN SENIOR INFRASTRUCTURE ARCHITECT Ot R10.11 RIGHT UPPER QUADRANT PAIN 07/21/2016 QAMAR GODOY SENIOR INFRASTRUCTURE ARCHITECT Ot N64.4 MASTODYNIA 07/21/2016 SARAHI ERVIN SENIOR INFRASTRUCTURE ARCHITECT Ot S89.92XA UNSPECIFIED INJURY OF LEFT LOWER LEG, IN 07/21/2016 SARAHI ERVIN SENIOR INFRASTRUCTURE ARCHITECT Ot X58.XXXA EXPOSURE TO OTHER SPECIFIED FACTORS, INI 07/21/2016 SARAHI ERVIN SENIOR INFRASTRUCTURE ARCHITECT Ot Y99.8 OTHER EXTERNAL CAUSE STATUS 07/24/2016 SARAHI ERVIN SENIOR INFRASTRUCTURE ARCHITECT Ot R10.11 RIGHT UPPER QUADRANT PAIN 07/24/2016 DBCONCHITAQAMAR TAVAREZ SENIOR INFRASTRUCTURE ARCHITECT Ot N64.4 MASTODYNIA 07/24/2016 SARAHI ERVIN SENIOR INFRASTRUCTURE ARCHITECT Ot S89.92XA UNSPECIFIED INJURY OF LEFT LOWER LEG, IN 07/24/2016 SARAHI ERVIN SENIOR INFRASTRUCTURE ARCHITECT Ot X58.XXXA EXPOSURE TO OTHER SPECIFIED FACTORS, INI 07/24/2016 SARAHI ERVIN SENIOR INFRASTRUCTURE ARCHITECT Ot Y99.8 OTHER EXTERNAL CAUSE STATUS 07/24/2016 WATSON PAINTER MD Ot R10.11 RIGHT UPPER QUADRANT PAIN 07/24/2016 WATSON PAINTER MD Ot R10.32 LEFT LOWER QUADRANT PAIN 07/24/2016 NINO WINKLER MD T Ot E11.9 TYPE [...] UPPER QUADRANT PAIN 07/25/2016 NINO WINKLER MD T Ot R11.2 NAUSEA WITH VOMITING, UNSPECIFIED 07/25/2016 WATSON PAINTER MD Ot R10.31 RIGHT LOWER QUADRANT PAIN 07/25/2016 WATSON PAINTER MD Ot R10.32 LEFT LOWER QUADRANT PAIN 07/26/2016 NINO WINKLER MD T Ot E11.9 TYPE 2 DIABETES MELLITUS WITHOUT COMPLIC 07/26/2016 NINO WINKLER MD T Ot N83.292 OTHER OVARIAN CYST, LEFT SIDE 07/26/2016 NINO WINKLER MD T Ot R10.11 RIGHT UPPER QUADRANT PAIN 07/26/2016 CATHI LEMUS, NINO Sahni Ot R11.2 NAUSEA WITH VOMITING, UNSPECIFIED 07/28/2016 LORENZO LEONHERSON S Ot D27.1 BENIGN NEOPLASM OF LEFT OVARY 07/28/2016 LORENZO LEONHERSON S Ot E66.9 OBESITY, UNSPECIFIED 07/28/2016 LORENZO LEONHERSON S Ot K81.1 CHRONIC CHOLECYSTITIS 07/28/2016 LOERNZO LEONHERSON S Ot N83.02 FOLLICULAR CYST OF LEFT OVARY 07/28/2016 LORENZO ELONHERSON S Ot 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 07/28/2016 LORENZO LEONHEROSN S Ot Z68.41 BODY MASS INDEX (BMI) 40.0-44.9, ADULT 07/30/2016 NINO WINKLER MD Ot G89.18 OTHER ACUTE POSTPROCEDURAL PAIN 07/30/2016 NINO WINKLER MD Ot R05 COUGH 07/30/2016 NINO WINKLER MD Ot R06.02 SHORTNESS OF BREATH 07/30/2016 NINO WINKLER MD Ot Z79.899 OTHER NURSING HOME (CURRENT) DRUG THERAPY 07/30/2016 NINO WINKLER MD Ot Z90.49 ACQUIRED ABSENCE OF OTHER SPECIFIED PART 07/30/2016 NINO WINKLER MD Ot Z90.721 ACQUIRED ABSENCE OF OVARIES, UNILATERAL 08/01/2016 LORENZO HERSON LEON S Ot D27.1 BENIGN NEOPLASM OF LEFT OVARY 08/01/2016 IWONADIONNA HERSON LEON Ot E66.9 OBESITY, UNSPECIFIED 08/01/2016 LORENZO HERSON LEON S Ot K81.1 CHRONIC CHOLECYSTITIS 08/01/2016 LORENZO HERSON LEON S Ot N83.02 FOLLICULAR CYST OF LEFT OVARY 08/01/2016 LORENZO LEONHERSON S Ot 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 08/01/2016 LORENZO LEONHERSON S Ot Z68.41 BODY MASS INDEX (BMI) 40.0-44.9, ADULT 08/03/2016 LORENZO HERSON LEON S Ot D27.1 BENIGN NEOPLASM OF LEFT OVARY 08/03/2016 IWONADIONNA HERSON LEON S Ot E66.9 OBESITY, UNSPECIFIED 08/03/2016 HERSON VENTURA DO S Ot K81.1 CHRONIC CHOLECYSTITIS 08/03/2016 LORENZO LEON, HERSON S Ot N83.02 FOLLICULAR CYST OF LEFT OVARY 08/03/2016 HERSON VENTURA DO S Ot 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 08/03/2016 HERSON VENTURA DO S Ot Z68.41 BODY MASS INDEX (BMI) 40.0-44.9, ADULT 08/05/2016 WATSON PAINTER MD Ot R10.31 RIGHT LOWER QUADRANT PAIN 08/05/2016 WATSON PAINTER MD Ot R10.32 LEFT LOWER QUADRANT PAIN 08/08/2016 WATSON PAINTER MD Ot R10.11 RIGHT UPPER QUADRANT PAIN 08/08/2016 WATSON PAINTER MD, Ot R10.32 LEFT LOWER QUADRANT PAIN 08/09/2016 HERSON VENTURA DO S Ot D27.1 BENIGN NEOPLASM OF LEFT OVARY 08/09/2016 HERSON VENTURA DO S Ot E66.9 OBESITY, UNSPECIFIED 08/09/2016 HERSON VENTURA DO S Ot K81.1 CHRONIC CHOLECYSTITIS 08/09/2016 LORENZO LEON, HERSON S Ot N83.02 FOLLICULAR CYST OF LEFT OVARY 08/09/2016 HERSON VENTURA DO S Ot 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 08/09/2016 LORENZO LEON, HERSON S Ot Z68.41 BODY MASS INDEX (BMI) 40.0-44.9, ADULT 09/07/2016 SARAHI ERVIN SENIOR INFRASTRUCTURE ARCHITECT Ot R10.11 RIGHT UPPER QUADRANT PAIN 09/07/2016 QAMAR GODOY SENIOR INFRASTRUCTURE ARCHITECT Ot N64.4 MASTODYNIA 09/07/2016 SARAHI ERVIN SENIOR INFRASTRUCTURE ARCHITECT Ot S89.92XA UNSPECIFIED INJURY OF LEFT LOWER LEG, IN 09/07/2016 SARAHI ERVIN SENIOR INFRASTRUCTURE ARCHITECT Ot X58.XXXA EXPOSURE TO OTHER SPECIFIED FACTORS, INI 09/07/2016 SARAHI ERVIN SENIOR INFRASTRUCTURE ARCHITECT Ot Y99.8 OTHER EXTERNAL CAUSE STATUS 09/07/2016 WATSON PAINTER MD Ot R10.11 RIGHT UPPER QUADRANT PAIN 09/07/2016 WATSON APINTER MD Ot R10.32 LEFT LOWER QUADRANT PAIN 09/07/2016 WATSON PAINTER MD Ot R10.31 RIGHT LOWER QUADRANT PAIN 09/07/2016 KIDO MD, TAKAAKI Ot R10.32 LEFT LOWER QUADRANT PAIN 09/21/2016 JDLYSSA NAPOLES Madina SENIOR INFRASTRUCTURE ARCHITECT Ot K21.9 GASTRO-ESOPHAGEAL REFLUX DISEASE WITHOUT 11/17/2016 SARAHI ERVIN SENIOR INFRASTRUCTURE ARCHITECT Ot R10.11 RIGHT UPPER QUADRANT PAIN 11/17/2016 QAMAR GODOY SENIOR INFRASTRUCTURE ARCHITECT Ot N64.4 MASTODYNIA 11/17/2016 SARAHI ERVIN SENIOR INFRASTRUCTURE ARCHITECT Ot S89.92XA UNSPECIFIED INJURY OF LEFT LOWER LEG, IN 11/17/2016 SARAHI ERVIN SENIOR INFRASTRUCTURE ARCHITECT Ot X58.XXXA EXPOSURE TO OTHER SPECIFIED FACTORS, INI 11/17/2016 SARAHI ERVIN SENIOR INFRASTRUCTURE ARCHITECT Ot Y99.8 OTHER EXTERNAL CAUSE STATUS 11/17/2016 WATSON PAINTER MD Ot R10.11 RIGHT UPPER QUADRANT PAIN 11/17/2016 WATSON PAINTER MD Ot R10.32 LEFT LOWER QUADRANT PAIN 11/17/2016 WATSON PAINTER MD Ot R10.31 RIGHT LOWER QUADRANT PAIN 11/17/2016 WATSON PAINTER MD Ot R10.32 LEFT LOWER QUADRANT PAIN 11/17/2016 JDMAREMEGHAN Painter SENIOR INFRASTRUCTURE ARCHITECT Ot K21.9 GASTRO-ESOPHAGEAL REFLUX DISEASE WITHOUT 11/17/2016 WATSON PAINTER MD Ot E66.01 MORBID (SEVERE) OBESITY DUE TO EXCESS CA 11/17/2016 WATSON PAINTER MD Ot Z01.81 2 ENCOUNTER FOR PREPROCEDURAL LABORATORY E 11/18/2016 WATSON PAINTER MD Ot E66.01 MORBID (SEVERE) OBESITY DUE TO EXCESS CA 11/18/2016 WATSON PAINTER MD Ot E78.5 HYPERLIPIDEMIA, UNSPECIFIED 11/18/2016 WATSON PAINTER MD Ot K21.9 GASTRO-ESOPHAGEAL REFLUX DISEASE WITHOUT 11/18/2016 WATSON PAINTER MD Ot M19.91 PRIMARY OSTEOARTHRITIS, UNSPECIFIED SITE 11/18/2016 WATSON PAINTER MD, Ot Z68.41 BODY MASS INDEX (BMI) 40.0-44.9, ADULT 11/24/2016 WATSON PAINTER MD Ot E66.01 MORBID (SEVERE) OBESITY DUE TO EXCESS CA 11/24/2016 WATSON PAINTER MD Ot Z01.81 2 ENCOUNTER FOR PREPROCEDURAL LABORATORY E 06/20/2017 JEREMY MAC MD Ot E11. 9 TYPE 2 DIABETES MELLITUS WITHOUT COMPLIC 06/20/2017 JEREMY MAC MD Ot E78. 00 PURE HYPERCHOLESTEROLEMIA, UNSPECIFIED 06/20/2017 JEREMY MAC MD Ot F41. 9 ANXIETY DISORDER, UNSPECIFIED 06/20/2017 JEREMY MAC MD Ot M54. 5 LOW BACK PAIN 06/20/2017 JEREMY MAC MD Ot N39. 0 URINARY TRACT INFECTION, SITE NOT SPECIF 06/20/2017 JEREMY MAC MD Ot Z87. 19 PERSONAL HISTORY OF OTHER DISEASES OF TH 06/20/2017 JEREMY MAC MD Ot Z87.448 PERSONAL HISTORY OF OTHER DISEASES OF UR 06/20/2017 JEREMY MAC MD, Ot Z87. 59 PERSONAL HISTORY OF COMP OF PREG, CHLDBR 06/20/2017 JEREMY MAC MD, Ot Z90. 49 ACQUIRED ABSENCE OF OTHER SPECIFIED PART 06/20/2017 JEREMY MAC MD Ot Z90.710 ACQUIRED ABSENCE OF BOTH CERVIX AND UTER 06/20/2017 JEREMY MAC MD Ot Z98. 51 TUBAL LIGATION STATUS 06/20/2017 JEREMY MAC MD Ot Z98. 84 BARIATRIC SURGERY STATUS 06/20/2017 SARAHI ERVIN APRN Ot R10.11 RIGHT UPPER QUADRANT PAIN 06/20/2017 QAMAR GODOY SENIOR INFRASTRUCTURE ARCHITECT Ot N64.4 MASTODYNIA 06/20/2017 SARAHI ERVIN SENIOR INFRASTRUCTURE ARCHITECT Ot S89.92XA UNSPECIFIED INJURY OF LEFT LOWER LEG, IN 06/20/2017 SARAHI ERVIN SENIOR INFRASTRUCTURE ARCHITECT Ot X58.XXXA EXPOSURE TO OTHER SPECIFIED FACTORS, INI 06/20/2017 SARAHI ERVIN SENIOR INFRASTRUCTURE ARCHITECT Ot Y99.8 OTHER EXTERNAL CAUSE STATUS 06/20/2017 WATSON PAINTER MD Ot R10.11 RIGHT UPPER QUADRANT PAIN 06/20/2017 WATSON PAINTER MD Ot R10.32 LEFT LOWER QUADRANT PAIN 06/20/2017 WATSON PAINTER MD Ot R10.31 RIGHT LOWER QUADRANT PAIN 06/20/2017 WATSON PAINTER MD Ot R10.32 LEFT LOWER QUADRANT PAIN 06/20/2017 LYSSA MILES SENIOR INFRASTRUCTURE ARCHITECT Ot K21.9 GASTRO-ESOPHAGEAL REFLUX DISEASE WITHOUT 06/20/2017 WATSON PAINTER MD Ot E66.01 MORBID (SEVERE) OBESITY DUE TO EXCESS CA 06/20/2017 WATSON PAINTER MD Ot Z01.81 2 ENCOUNTER FOR PREPROCEDURAL LABORATORY E 06/22/2017 JEREMY MAC MD Ot E11. 9 TYPE 2 DIABETES MELLITUS WITHOUT COMPLIC 06/22/2017 JEREMY MAC MD Ot E78. 00 PURE HYPERCHOLESTEROLEMIA, UNSPECIFIED 06/22/2017 JEREMY MAC MD Ot F41. 9 ANXIETY DISORDER, UNSPECIFIED 06/22/2017 JEREMY MAC MD Ot M54. 5 LOW BACK PAIN 06/22/2017 JEREMY MAC MD Ot N39. 0 URINARY TRACT INFECTION, SITE NOT SPECIF 06/22/2017 JEREMY MAC MD Ot Z87. 19 PERSONAL HISTORY OF OTHER DISEASES OF TH 06/22/2017 JEREMY MAC MD Ot Z87.448 PERSONAL HISTORY OF OTHER DISEASES OF UR 06/22/2017 JEREMY MAC MD, Ot Z87. 59 PERSONAL HISTORY OF COMP OF PREG, CHLDBR 06/22/2017 JEREMY MAC MD Ot Z90. 49 ACQUIRED ABSENCE OF OTHER SPECIFIED PART 06/22/2017 JEREMY MAC MD Ot Z90.710 ACQUIRED ABSENCE OF BOTH CERVIX AND UTER 06/22/2017 JEREMY MAC MD Ot Z98. 51 TUBAL LIGATION STATUS 06/22/2017 JEREMY MAC MD Ot Z98. 84 BARIATRIC SURGERY STATUS 07/24/2017 WATSON PAINTER MD Ot Z01.81 8 ENCOUNTER FOR OTHER PREPROCEDURAL EXAMIN 07/24/2017 WATSON PAINTER MD Ot Z12.11 ENCOUNTER FOR SCREENING FOR MALIGNANT NE 07/24/2017 WATSON PAINTER MD Ot Z80.0 FAMILY HISTORY OF MALIGNANT NEOPLASM OF 07/25/2017 WATSON PAINTER MD Ot Z01.81 8 ENCOUNTER FOR OTHER PREPROCEDURAL EXAMIN 07/25/2017 WATSON PAINTER MD Ot Z12.11 ENCOUNTER FOR SCREENING FOR MALIGNANT NE 07/25/2017 WATSON PAINTER MD Ot Z80.0 FAMILY HISTORY OF MALIGNANT NEOPLASM OF 07/26/2017 SARAHI ERVIN APRN Ot R10.11 RIGHT UPPER QUADRANT PAIN 07/26/2017 QAMAR GODOY SENIOR INFRASTRUCTURE ARCHITECT Ot N64.4 MASTODYNIA 07/26/2017 ERVINSARAHI Gaspar SENIOR INFRASTRUCTURE ARCHITECT Ot S89.92XA UNSPECIFIED INJURY OF LEFT LOWER LEG, IN 07/26/2017 SARAHI ERVIN SENIOR INFRASTRUCTURE ARCHITECT Ot X58.XXXA EXPOSURE TO OTHER SPECIFIED FACTORS, INI 07/26/2017 SARAHI ERVIN SENIOR INFRASTRUCTURE ARCHITECT Ot Y99.8 OTHER EXTERNAL CAUSE STATUS 07/26/2017 WATSON PAINTER MD Ot R10.11 RIGHT UPPER QUADRANT PAIN 07/26/2017 WATSON PAINTER MD Ot R10.32 LEFT LOWER QUADRANT PAIN 07/26/2017 WATSON PAINTER MD Ot R10.31 RIGHT LOWER QUADRANT PAIN 07/26/2017 WATSON PAINTER MD Ot R10.32 LEFT LOWER QUADRANT PAIN 07/26/2017 JDLYSSA SENIOR INFRASTRUCTURE ARCHITECT Ot K21.9 GASTRO-ESOPHAGEAL REFLUX DISEASE WITHOUT 07/26/2017 WATSON PAINTER MD Ot E66.01 MORBID (SEVERE) OBESITY DUE TO EXCESS CA 07/26/2017 WATSON PAINTER MD Ot Z01.81 2 ENCOUNTER FOR PREPROCEDURAL LABORATORY E 07/26/2017 WATSON PAINTER MD Ot K64.0 FIRST DEGREE HEMORRHOIDS 07/26/2017 WATSON PAINTER MD Ot Z12.11 ENCOUNTER FOR SCREENING FOR MALIGNANT NE 07/26/2017 WATOSN PAINTER MD Ot Z80.0 FAMILY HISTORY OF [...] OF TRAC 07/30/2017 WATSON PAINTER MD Ot Z01.81 8 ENCOUNTER FOR OTHER PREPROCEDURAL EXAMIN 07/30/2017 WATSON PAINTER MD Ot Z12.11 ENCOUNTER FOR SCREENING FOR MALIGNANT NE 07/30/2017 WATSON PAINTER MD Ot Z80.0 FAMILY HISTORY OF MALIGNANT NEOPLASM OF 08/01/2017 WATSON PAINTER MD, Ot K64.0 FIRST DEGREE HEMORRHOIDS 08/01/2017 WATSON PAINTER MD, Ot Z12.11 ENCOUNTER FOR SCREENING FOR MALIGNANT NE 08/01/2017 WATSON PAINTER MD, Ot Z80.0 FAMILY HISTORY OF MALIGNANT NEOPLASM OF 08/01/2017 WATSON PAINTER MD, Ot Z80.1 FAMILY HISTORY OF MALIG NEOPLASM OF TRAC 10/06/2017 NINO WINKLER MD Ot E11.9 TYPE 2 DIABETES MELLITUS WITHOUT COMPLIC 10/06/2017 NINO WINKLER MD Ot E78.00 PURE HYPERCHOLESTEROLEMIA, UNSPECIFIED 10/06/2017 NINO WINKLER MD, Ot F41.9 ANXIETY DISORDER, UNSPECIFIED 10/06/2017 NINO WINKLER MD Ot R10.12 LEFT UPPER QUADRANT PAIN 10/06/2017 NINO WINKLER MD Ot R11.0 NAUSEA 10/06/2017 NINO WINKLER MD Ot Z87.19 PERSONAL HISTORY OF OTHER DISEASES OF 10/06/2017 NINO WINKLER MD Ot Z87.59 PERSONAL HISTORY OF COMP OF PREG, CHLDBR 10/06/2017 NINO WINKLER MD, Ot Z90.710 ACQUIRED ABSENCE OF BOTH CERVIX AND UTER 10/06/2017 NINO WINKLER MD Ot Z90.89 ACQUIRED ABSENCE OF OTHER ORGANS 10/06/2017 NINO WINKLER MD, Ot Z98.51 TUBAL LIGATION STATUS 10/06/2017 NINO WINKLER MD Ot Z98.84 BARIATRIC SURGERY STATUS 02/19/2018 JAELYN MORALES APRN Ot E78.00 PURE HYPERCHOLESTEROLEMIA, UNSPECIFIED 02/19/2018 JAELYN MORALES APRN Ot F41 .9 ANXIETY DISORDER, UNSPECIFIED 02/19/2018 JAELYN MORALES APRN Ot N39 .0 URINARY TRACT INFECTION, SITE NOT SPECIF 02/19/2018 JAELYN MORALES APRN Ot R10.13 EPIGASTRIC PAIN 02/19/2018 JAELYN MORALES APRN Ot Z87.19 PERSONAL HISTORY OF OTHER DISEASES OF 02/19/2018 JAELYN MORALES APRN Ot Z87.440 PERSONAL HISTORY OF URINARY (TRACT) INFE 02/19/2018 JAELYN MORALES APRN Ot Z90.49 ACQUIRED ABSENCE OF OTHER SPECIFIED PART 02/19/2018 JAELYN MORALES APRN Ot Z90.710 ACQUIRED ABSENCE OF BOTH CERVIX AND UTER 02/19/2018 JAELYN MORALES APRN Ot Z98.51 TUBAL LIGATION STATUS 02/19/2018 JAELYN MORALES APRN Ot Z98.84 BARIATRIC SURGERY STATUS 02/19/2018 JAELYN MORALES APRN Ot Z98.890 OTHER SPECIFIED POSTPROCEDURAL STATES 02/21/2018 JAELYN MORALES APRN Ot E78.00 PURE HYPERCHOLESTEROLEMIA, UNSPECIFIED 02/21/2018 JAELYN MORALES APRN Ot F41 .9 ANXIETY DISORDER, UNSPECIFIED 02/21/2018 JAELYN MORALES APRN Ot N39 .0 URINARY TRACT INFECTION, SITE NOT SPECIF 02/21/2018 [...] APRN Ot Z98.890 OTHER SPECIFIED POSTPROCEDURAL STATES 06/07/2018 JAELYN MORALES APRN Ot E78.00 PURE HYPERCHOLESTEROLEMIA, UNSPECIFIED 06/07/2018 JAELYN MORALES APRN Ot F41 .9 ANXIETY DISORDER, UNSPECIFIED 06/07/2018 JAELYN MORALES APRN Ot J10 .1 FLU DUE TO OT IDENT INFLUENZA VIRUS W O 06/07/2018 JAELYN MORALES APRN Ot K58 .9 IRRITABLE BOWEL SYNDROME WITHOUT DIARRHE 06/07/2018 JAELYN MORALES APRN Ot R53.81 OTHER MALAISE 06/07/2018 JAELYN MORALES APRN Ot Z87.19 PERSONAL HISTORY OF OTHER DISEASES OF TH 06/07/2018 JAELYN MORALES APRN Ot Z87.440 PERSONAL HISTORY OF URINARY (TRACT) INFE 06/07/2018 JAELYN MORALES APRN Ot Z87.442 PERSONAL HISTORY OF URINARY CALCULI 06/07/2018 JAELYN MORALES APRN Ot Z87.448 PERSONAL HISTORY OF OTHER DISEASES OF UR 06/07/2018 JAELYN MORALES APRN Ot Z90.49 ACQUIRED ABSENCE OF OTHER SPECIFIED PART 06/07/2018 JAELYN MORALES APRN Ot Z90.710 ACQUIRED ABSENCE OF BOTH CERVIX AND UTER 06/07/2018 JAELYN MORALES APRN Ot Z98.51 TUBAL LIGATION STATUS 06/07/2018 JAELYN MORALES APRN Ot Z98.84 BARIATRIC SURGERY STATUS 06/07/2018 JAELYN MORALES APRN Ot Z98.890 OTHER SPECIFIED POSTPROCEDURAL STATES 06/11/2018 JAELYN MORALES APRN Ot E78.00 PURE HYPERCHOLESTEROLEMIA, UNSPECIFIED 06/11/2018 JAELYN MORALES APRN Ot F41 .9 ANXIETY DISORDER, UNSPECIFIED 06/11/2018 JAELYN MORALES APRN Ot J10 .1 FLU DUE TO [facility] IDENT INFLUENZA VIRUS W O 06/11/2018 JAELYN MORALES APRN Ot K58 .9 IRRITABLE BOWEL SYNDROME WITHOUT DIARRHE 06/11/2018 JAELYN MORALES APRN Ot R53.81 OTHER MALAISE 06/11/2018 JAELYN MORALES APRN Ot Z87.19 PERSONAL HISTORY OF OTHER DISEASES OF TH 06/11/2018 JAELYN MORALES APRN Ot Z87.440 PERSONAL HISTORY OF URINARY (TRACT) INFE 06/11/2018 JAELYN MORALES APRN Ot Z87.442 PERSONAL HISTORY OF URINARY CALCULI 06/11/2018 JAELYN MORALES APRN Ot Z87.448 PERSONAL HISTORY OF OTHER DISEASES OF UR 06/11/2018 JAELYN MORALES APRN Ot Z90.49 ACQUIRED ABSENCE OF OTHER SPECIFIED PART 06/11/2018 JAELYN MORALES APRN Ot Z90.710 ACQUIRED ABSENCE OF BOTH CERVIX AND UTER 06/11/2018 JAELYN MORALES APRN Ot Z98.51 TUBAL LIGATION STATUS 06/11/2018 JAELYN MORALES APRN Ot Z98.84 BARIATRIC SURGERY STATUS 06/11/2018 JAELYN MORALES SENIOR INFRASTRUCTURE ARCHITECT Ot Z98.890 OTHER SPECIFIED POSTPROCEDURAL STATES 06/18/2018 TESHAАННА EILEEN Ot E11.9 TYPE 2 DIABETES MELLITUS WITHOUT COMPLIC 06/18/2018 TESHAАННАSHANTAIS Ot E78.00 PURE HYPERCHOLESTEROLEMIA, UNSPECIFIED 06/18/2018 SARAH EILEEN Ot F41.9 ANXIETY DISORDER, UNSPECIFIED 06/18/2018 SHANTA SMITHIS Ot K58.9 IRRITABLE BOWEL SYNDROME WITHOUT DIARRHE 06/18/2018 SHANTA SMITHIS Ot M54.2 CERVICALGIA 06/18/2018 SHANTA SMITHIS Ot S16.1XXA STRAIN OF MUSCLE, FASCIA AND TENDON AT N 06/18/2018 EILEEN MSITH Ot X58.XXXA EXPOSURE TO OTHER SPECIFIED FACTORS, INI 06/18/2018 EILEEN SMITH Ot Z87.19 PERSONAL HISTORY OF OTHER DISEASES OF TH 06/18/2018 EILEEN SMITH Ot Z87.440 PERSONAL HISTORY OF URINARY (TRACT) INFE 06/18/2018 EILEEN SMITH Ot Z87.448 PERSONAL HISTORY OF OTHER DISEASES OF UR 06/18/2018 EILEEN SMITH Ot Z90.49 ACQUIRED ABSENCE OF OTHER SPECIFIED PART 06/18/2018 EILEEN SMITH Ot Z90.710 ACQUIRED ABSENCE OF BOTH CERVIX AND UTER 06/18/2018 SHANTA SMITHIS Ot Z98.51 TUBAL LIGATION STATUS 06/18/2018 SHANTA SMITHIS Ot Z98.84 BARIATRIC SURGERY STATUS 06/18/2018 EILEEN SMITH Ot Z98.890 OTHER SPECIFIED POSTPROCEDURAL STATES 06/20/2018 EILEEN SMITH Ot E11.9 TYPE 2 DIABETES MELLITUS WITHOUT COMPLIC 06/20/2018 SHANTA SMITHIS Ot E78.00 PURE HYPERCHOLESTEROLEMIA, UNSPECIFIED 06/20/2018 EILEEN SMITH Ot F41.9 ANXIETY DISORDER, UNSPECIFIED 06/20/2018 SHANTA SMITHIS Ot K58.9 IRRITABLE BOWEL SYNDROME WITHOUT DIARRHE 06/20/2018 SHANTA SMITHIS Ot M54.2 CERVICALGIA 06/20/2018 SHANTA SMITHIS Ot S16.1XXA STRAIN OF MUSCLE, FASCIA AND TENDON AT N 06/20/2018 SHANTA SMITHIS Ot X58.XXXA EXPOSURE TO OTHER SPECIFIED FACTORS, INI 06/20/2018 EILEEN SMITH Ot Z87.19 PERSONAL HISTORY OF OTHER DISEASES OF TH 06/20/2018 EILEEN SMITH Ot Z87.440 PERSONAL HISTORY OF URINARY (TRACT) INFE 06/20/2018 EILEEN SMITH Ot Z87.448 PERSONAL HISTORY OF OTHER DISEASES OF UR 06/20/2018 EILEEN SMITH Ot Z90.49 ACQUIRED ABSENCE OF OTHER SPECIFIED PART 06/20/2018 EILEEN SMITH Ot Z90.710 ACQUIRED ABSENCE OF BOTH CERVIX AND UTER 06/20/2018 EILEEN SMITH Ot Z98.51 TUBAL LIGATION STATUS 06/20/2018 EILEEN SMITH Ot Z98.84 BARIATRIC SURGERY STATUS 06/20/2018 EILEEN SMITH Ot Z98.890 OTHER SPECIFIED POSTPROCEDURAL STATES 02/21/2019 NINO WINKLER MD Ot E11.9 TYPE 2 DIABETES MELLITUS WITHOUT COMPLIC 02/21/2019 NINO WINKLER MD Ot E78.00 PURE HYPERCHOLESTEROLEMIA, UNSPECIFIED 02/21/2019 NINO WINKLER MD Ot F41.9 ANXIETY DISORDER, UNSPECIFIED 02/21/2019 NINO WINKLER MD Ot K58.9 IRRITABLE BOWEL SYNDROME WITHOUT DIARRHE 02/21/2019 NINO WINKLER MD Ot L03.113 CELLULITIS OF RIGHT UPPER LIMB 02/21/2019 NINO WINKLER MD Ot L23.7 ALLERGIC CONTACT DERMATITIS DUE TO PLANT 02/21/2019 NINO WINKLER MD Ot R21 RASH AND OTHER NONSPECIFIC SKIN ERUPTION 02/21/2019 NINO WINKLER MD Ot Z87.440 PERSONAL HISTORY OF URINARY (TRACT) INFE 02/21/2019 NINO WINKLER MD Ot Z87.442 PERSONAL HISTORY OF URINARY CALCULI 02/21/2019 NINO WINKLER MD Ot Z90.49 ACQUIRED ABSENCE OF OTHER SPECIFIED PART 02/21/2019 NINO WINKLER MD Ot Z90.710 ACQUIRED ABSENCE OF BOTH CERVIX AND UTER 02/21/2019 NINO WINKLER MD Ot Z98.51 TUBAL LIGATION STATUS 02/22/2019 ERVIN, SARAHI R SENIOR INFRASTRUCTURE ARCHITECT Ot R10.11 RIGHT UPPER QUADRANT PAIN 02/22/2019 QAMAR GODOY SENIOR INFRASTRUCTURE ARCHITECT Ot N64.4 MASTODYNIA 02/22/2019 ERVINSARAHI Gaspar SENIOR INFRASTRUCTURE ARCHITECT Ot S89.92XA UNSPECIFIED INJURY OF LEFT LOWER LEG, IN 02/22/2019 SARAHI ERVIN SENIOR INFRASTRUCTURE ARCHITECT Ot X58.XXXA EXPOSURE TO OTHER SPECIFIED FACTORS, INI 02/22/2019 ERVINSARAHI Gaspar SENIOR INFRASTRUCTURE ARCHITECT Ot Y99.8 OTHER EXTERNAL CAUSE STATUS 02/22/2019 WATSON PAINTER MD Ot R10.11 RIGHT UPPER QUADRANT PAIN 02/22/2019 WATSON PAINTER MD Ot R10.32 LEFT LOWER QUADRANT PAIN 02/22/2019 WATSON PAINTER MD Ot R10.31 RIGHT LOWER QUADRANT PAIN 02/22/2019 WATSON PAINTER MD, Ot R10.32 LEFT LOWER QUADRANT PAIN 02/22/2019 LYSSA MILES SENIOR INFRASTRUCTURE ARCHITECT Ot K21.9 GASTRO-ESOPHAGEAL REFLUX DISEASE WITHOUT 02/22/2019 WATSON PAINTER MD Ot E66.01 MORBID (SEVERE) OBESITY DUE TO EXCESS CA 02/22/2019 WATSON PAINTER MD Ot Z01.81 2 ENCOUNTER FOR PREPROCEDURAL LABORATORY E 02/25/2019 NINO WINKLER MD Ot E11.9 TYPE 2 DIABETES MELLITUS WITHOUT COMPLIC 02/25/2019 NINO WINKLER MD, Ot E78.00 PURE HYPERCHOLESTEROLEMIA, UNSPECIFIED 02/25/2019 NINO WINKLER MD, Ot F41.9 ANXIETY DISORDER, UNSPECIFIED 02/25/2019 NINO WINKLER MD, Ot K58.9 IRRITABLE BOWEL SYNDROME WITHOUT DIARRHE 02/25/2019 NINO WINKLER MD, Ot L03.113 CELLULITIS OF RIGHT UPPER LIMB 02/25/2019 NINO WINKLER MD, Ot L23.7 ALLERGIC CONTACT DERMATITIS DUE TO PLANT 02/25/2019 NINO WINKLER MD, Ot R21 RASH AND OTHER NONSPECIFIC SKIN ERUPTION 02/25/2019 NINO WINKLER MD, Ot Z87.440 PERSONAL HISTORY OF URINARY (TRACT) INFE 02/25/2019 NINO WINKLER MD, Ot Z87.442 PERSONAL HISTORY OF URINARY CALCULI 02/25/2019 NINO WINKLER MD, Ot Z90.49 ACQUIRED ABSENCE OF OTHER SPECIFIED PART 02/25/2019 NINO WINKLER MD Ot Z90.710 ACQUIRED ABSENCE OF BOTH CERVIX AND UTER 02/25/2019 NINO WINKLER MD, Ot Z98.51 TUBAL LIGATION STATUS 02/28/2019 JAELYN MORALES APRN Ot E11 .9 TYPE 2 DIABETES MELLITUS WITHOUT COMPLIC 02/28/2019 JAELYN MORALES APRN Ot E78.00 PURE HYPERCHOLESTEROLEMIA, UNSPECIFIED 02/28/2019 JAELYN MORALES APRN Ot F41 .9 ANXIETY DISORDER, UNSPECIFIED 02/28/2019 JAELYN MORALES APRN Ot K58 .9 IRRITABLE BOWEL SYNDROME WITHOUT DIARRHE 02/28/2019 JAELYN MORALES APRN Ot R21 RASH AND OTHER NONSPECIFIC SKIN ERUPTION 02/28/2019 JAELYN MORALES APRN Ot Z87.440 PERSONAL HISTORY OF URINARY (TRACT) INFE 02/28/2019 JAELYN MORALES APRN Ot Z87.442 PERSONAL HISTORY OF URINARY CALCULI 02/28/2019 JAELYN MORALES APRN Ot Z90.49 ACQUIRED ABSENCE OF OTHER SPECIFIED PART 02/28/2019 JAELYN MORALES APRN Ot Z90.710 ACQUIRED ABSENCE OF BOTH CERVIX AND UTER 02/28/2019 JAELYN MORALES APRN Ot Z98.51 TUBAL LIGATION STATUS Procedures Code Description [place] [address] XRAY KNEE RIGHT 1 OR 2 VIEWS 06/20/2012 ORTHO SONIA HOWE 06/20/2012 19189 XRAY FOOT LEFT 2 VIEWS 08/24/2012 ORTHOPEDSONIA BOWER 08/24/201285235 JOIN T INJECTION- INTERMEDIATE JOINT 11/15/2012 J1040 DEPO MEDROL 80 MG INJ 11/15/2012 81653 ROUT INE VENIPUNCTURE 04/22/2013 29214 CBC 04/22/2013 [id number] GF R CALC (RESULT ONLY) 04/22/2013 01730 CMP 04/22/2013 19938 LIPI D PANEL 04/22/2013 32220 TSH 04/22/201323337 JOIN T INJECTION - SMALL JOINT 09/19/2013 J1030 DEPO MEDROL 40 MG INJ 09/19/2013 29439 ROUT INE VENIPUNCTURE 03/04/2014 10194 MYCO PLASMA ANTIBODY 03/04/2014 00101 UA W / CULTURE IF INDICATED 03/04/2014 06404 MONO TEST (IN-HOUSE) 03/04/2014 85092 CBC 03/04/2014 17080 XRAY CERVICAL SPINE, 2 OR 3 VIEWS 07/09/2014 41672 XRAY LUMBAR SPINE 2 OR 3 VIEWS 07/17/2014 [id number] EX CISION OF STOMACH, PERCUTANEOUS ENDOSC 11/17/2016 Results Test Result Range Complete blood count (CBC) with automate d white blood cell (WBC) differential - 03/08/16 18:44 Blood leukocytes automated count (number/volume) 6.9 10*3/uL 4.3-11.0 Blood erythrocytes automated count (number/volume) 5.01 10*6/uL 4.35-5.85 Venous blood hemoglobin measurement (mass/volume) 14.0 g/dL 11.5-16.0 Blood hematocrit (volume fraction) 42 % 35-52 Automated erythrocyte mean corpuscular volume 83 [ foz_us] 80-99 Automated erythrocyte mean corpuscular h emoglobin (mass per erythrocyte) 28 pg 25-34 Automated erythrocyte mean corpuscular h emoglobin concentration measurement (mass/volume) 34 g/dL 32-36 Automated erythrocyte distribution width ratio 14. 4 % 10.0- 14.5 Automated blood platelet count (count/volume) 290 10*3/uL [...] 10*3 1.0-4.0 Blood monocytes automated count (number/volume) 0. 7 10*3 0.0-1.0 Automated eosinophil count 0.3 10*3/uL 0 .0-0.3 Automated blood basophil count (count/volume) 0.0 10*3/uL 0.0-0.1 Influenza virus A and B antigen detectio n - 03/08/16 18:44 FLU RESULT NEGATIVE FOR INFLUENZA A AND B ANTIGENS BY [facility] Comprehensive metabolic panel - 03/08/16 18:44 Serum or plasma sodium measurement (moles/volume) 136 mmol/L 135-145 Serum or plasma potassium measurement (moles/volume) 4.0 mmol/L 3.6-5.0 Serum or plasma chloride measurement (moles/volume) 107 mmol/L 98-107 Carbon dioxide 21 mmol/L 21-32 Serum or plasma anion gap determination (moles/volume) 8 mmol/L 5-14 Serum or plasma urea nitrogen measurement (mass/volume ) 10 mg/dL 7-18 Serum or plasma creatinine measurement (mass/volume) 0.78 mg/dL 0.60-1.30 Serum or plasma urea nitrogen/creatinine mass ratio 13 NRG Serum or plasma creatinine measurement w ith calculation of estimated glomerular filtration rate > NRG Serum or plasma glucose measurement (mass/volume) 88 mg/dL 70-105 Serum or plasma calcium measurement (mass/volume) 9.4 mg/dL 8.5-10.1 Serum or plasma total bilirubin measurement (mass/volu me) 0.4 mg/dL 0.1-1.0 Serum or plasma alkaline phosphatase afshan surement (enzymatic activity/volume) 64 U/L 40-136 Serum or plasma aspartate aminotransfera se measurement (enzymatic activity/volume) 16 U/L 5-34 Serum or plasma alanine aminotransferase measurement (enzymatic activity/volume) 14 U/L 0-55 Serum or plasma protein measurement (mass/volume) 7.8 g/dL 6.4-8.2 Serum or plasma albumin measurement (mass/volume) 4.4 g/dL 3.2-4.5 Complete urinalysis with reflex to cultu re - 03/08/16 19:27 Urine color determination YELLOW NRG Urine clarity determination SLIGHTLY CLOUDY NRG Urine pH measurement by test strip 6 5-9 Specific gravity of urine by test strip 1.020 1.016-1.022 Urine protein assay by test strip, semi-quantitative 1+ NEGATIVE Urine glucose detection by automated test strip NE GATIVE NEGATIVE Erythrocytes detection in urine sediment by light micr oscopy NEGATIVE NEGATIVE Urine ketones detection by automated test strip NE GATIVE NEGATIVE Urine nitrite detection by test strip NEGATIVE NEGATIVE Urine total bilirubin detection by test strip NEGA TIVE NEGATIVE Urine urobilinogen measurement by automated test strip (mass/volume) NORMAL NORMAL Urine leukocyte esterase detection by dipstick NEG ATIVE NEGATIVE Automated urine sediment erythrocyte cou nt by microscopy (number/high power field) NONE NRG Automated urine sediment leukocyte count by microscopy (number/high power field) NONE NRG Bacteria detection in urine sediment by light microsco py MODERATE NRG Squamous epithelial cells detection in u rine sediment by light microscopy 2-5 NRG Crystals detection in urine sediment by light microsco py NONE NRG Casts detection in urine sediment by light microscopy NONE NRG Mucus detection in urine sediment by light microscopy NEGATIVE NRG Complete urinalysis with reflex to culture NO NRG Serum or plasma choriogonadotropin (preg hesham test) detection - 07/24/16 14:10 Serum or plasma choriogonadotropin ( test) de tection NEGATIVE NEGATIVE Complete blood count (CBC) with automate d white blood cell (WBC) differential - 07/24/16 14:10 Blood leukocytes automated count (number/volume) 8.6 10*3/uL 4.3-11.0 Blood erythrocytes automated count (number/volume) 5.10 10*6/uL 4.35-5.85 Venous blood hemoglobin measurement (mass/volume) 14.0 g/dL 11.5-16.0 Blood hematocrit (volume fraction) 42 % 35-52 Automated erythrocyte mean corpuscular volume 83 [ foz_us] 80-99 Automated erythrocyte mean corpuscular h emoglobin (mass per erythrocyte) 28 pg 25-34 Automated erythrocyte mean corpuscular h emoglobin concentration measurement (mass/volume) 33 g/dL 32-36 Automated erythrocyte distribution width ratio 14. 3 % 10.0- 14.5 Automated blood platelet count (count/volume) 328 10*3/uL [...] 10*3 1.0-4.0 Blood monocytes automated count (number/volume) 0. 5 10*3 0.0-1.0 Automated eosinophil count 0.4 10*3/uL 0 .0-0.3 Automated blood basophil count (count/volume) 0.1 10*3/uL 0.0-0.1 PT panel in platelet poor plasma by coag ulation assay - 07/24/16 14:10 Prothrombin time (PT) in platelet poor plasma by coagu lation assay 13.3 s 12.2-14.7 INR in platelet poor plasma or blood by coagulation as say 1.0 0.8-1.4 Activated partial thromboplastin time (a PTT) in platelet poor plasma bycoagulation assay - 07/24/16 14:10 Activated partial thromboplastin time (a PTT) in platelet poor plasma bycoagulation assay 29 s 24-35 Comprehensive metabolic panel - 07/24/16 14:10 Serum or plasma sodium measurement (moles/volume) 140 mmol/L 135-145 Serum or plasma potassium measurement (moles/volume) 3.4 mmol/L 3.6-5.0 Serum or plasma chloride measurement (moles/volume) 106 mmol/L 98-107 Carbon dioxide 24 mmol/L 21-32 Serum or plasma anion gap determination (moles/volume) 10 mmol/L 5-14 Serum or plasma urea nitrogen measurement (mass/volume ) 10 mg/dL 7-18 Serum or plasma creatinine measurement (mass/volume) 0.81 mg/dL 0.60-1.30 Serum or plasma urea nitrogen/creatinine mass ratio 12 NRG Serum or plasma creatinine measurement w ith calculation of estimated glomerular filtration rate > NRG Serum or plasma glucose measurement (mass/volume) 88 mg/dL 70-105 Serum or plasma calcium measurement (mass/volume) 9.2 mg/dL 8.5-10.1 Serum or plasma total bilirubin measurement (mass/volu me) 0.4 mg/dL 0.1-1.0 Serum or plasma alkaline phosphatase afshan surement (enzymatic activity/volume) 57 U/L 40-136 Serum or plasma aspartate aminotransfera se measurement (enzymatic activity/volume) 18 U/L 5-34 Serum or plasma alanine aminotransferase measurement (enzymatic activity/volume) 13 U/L 0-55 Serum or plasma protein measurement (mass/volume) 8.2 g/dL 6.4-8.2 Serum or plasma albumin measurement (mass/volume) 4.3 g/dL 3.2-4.5 Lipase - 07/24/16 14:10 Lipase 44 U/L 8-78 Complete urinalysis with reflex to cultu re - 07/24/16 15:27 Urine color determination YELLOW NRG Urine clarity determination CLEAR NR G Urine pH measurement by test strip 5 5-9 Specific gravity of urine by test strip 1.025 1.016-1.022 Urine protein assay by test strip, semi-quantitative NEGATIVE NEGATIVE Urine glucose detection by automated test strip NE GATIVE NEGATIVE Erythrocytes detection in urine sediment by light micr oscopy NEGATIVE NEGATIVE Urine ketones detection by automated test strip NE GATIVE NEGATIVE Urine nitrite detection by test strip NEGATIVE NEGATIVE Urine total bilirubin detection by test strip NEGA TIVE NEGATIVE Urine urobilinogen measurement by automated test strip (mass/volume) NORMAL NORMAL Urine leukocyte esterase detection by dipstick NEG ATIVE NEGATIVE Automated urine sediment erythrocyte cou nt by microscopy (number/high power field) NONE NRG Automated urine sediment leukocyte count by microscopy (number/high power field) [HPF] NRG Bacteria detection in urine sediment by light microsco py FEW NRG Squamous epithelial cells detection in u rine sediment by light microscopy 0-2 NRG Crystals detection in urine sediment by light microsco py PRESENT NRG Casts detection in urine sediment by light microscopy NONE NRG Mucus detection in urine sediment by light microscopy MODERATE NRG Complete urinalysis with reflex to culture YES NRG Hyaline casts detection in urine sediment by light shoaib roscopy 0-2 NRG Bacterial urine culture - 07/24/16 15:27 URINE CULTURE RESULTS <10,000/ML NRG Methicillin resistant Staphylococcus aur eus (MRSA) screening culture - 07/28/16 10:15 Methicillin resistant Staphylococcus aureus (MRSA) scr eening culture NEG NRG Complete blood count (CBC) with automate d white blood cell (WBC) differential - 07/28/16 10:23 Blood leukocytes automated count (number/volume) 7.1 10*3/uL 4.3-11.0 Blood erythrocytes automated count (number/volume) 4.67 10*6/uL 4.35-5.85 Venous blood hemoglobin measurement (mass/volume) 12.8 g/dL 11.5-16.0 Blood hematocrit (volume fraction) 38 % 35-52 Automated erythrocyte mean corpuscular volume 82 [ foz_us] 80-99 Automated erythrocyte mean corpuscular h emoglobin (mass per erythrocyte) 27 pg 25-34 Automated erythrocyte mean corpuscular h emoglobin concentration measurement (mass/volume) 33 g/dL 32-36 Automated erythrocyte distribution width ratio 14. 4 % 10.0- 14.5 Automated blood platelet count (count/volume) 285 10*3/uL [...] 10*3 1.0-4.0 Blood monocytes automated count (number/volume) 0. 4 10*3 0.0-1.0 Automated eosinophil count 0.2 10*3/uL 0 .0-0.3 Automated blood basophil count (count/volume) 0.0 10*3/uL 0.0-0.1 Blood type T Indirect antibody screen pa prudencio - 07/28/16 10:23 ABO+Rh group AP NRG Transfusion band number [id number] [facility] Blood group antibody screen NEGATIVE NR G Complete urinalysis with reflex to cultu re - 07/30/16 18:35 Urine color determination YELLOW NRG Urine clarity determination CLEAR NR G Urine pH measurement by test strip 7 5-9 Specific gravity of urine by test strip 1.010 1.016-1.022 Urine protein assay by test strip, semi-quantitative NEGATIVE NEGATIVE Urine glucose detection by automated test strip NE GATIVE NEGATIVE Erythrocytes detection in urine sediment by light micr oscopy NEGATIVE NEGATIVE Urine ketones detection by automated test strip NE GATIVE NEGATIVE Urine nitrite detection by test strip NEGATIVE NEGATIVE Urine total bilirubin detection by test strip NEGA TIVE NEGATIVE Urine urobilinogen measurement by automated test strip (mass/volume) NORMAL NORMAL Urine leukocyte esterase detection by dipstick NEG ATIVE NEGATIVE Automated urine sediment erythrocyte cou nt by microscopy (number/high power field) NONE NRG Automated urine sediment leukocyte count by microscopy (number/high power field) NONE NRG Bacteria detection in urine sediment by light microsco py NONE NRG Squamous epithelial cells detection in u rine sediment by light microscopy 0-2 NRG Crystals detection in urine sediment by light microsco py NONE NRG Casts detection in urine sediment by light microscopy NONE NRG Mucus detection in urine sediment by light microscopy NEGATIVE NRG Complete urinalysis with reflex to culture NO NRG Complete blood count (CBC) with automate d white blood cell (WBC) differential - 07/30/16 20:21 Blood leukocytes automated count (number/volume) 9.5 10*3/uL 4.3-11.0 Blood erythrocytes automated count (number/volume) 4.47 10*6/uL 4.35-5.85 Venous blood hemoglobin measurement (mass/volume) 12.3 g/dL 11.5-16.0 Blood hematocrit (volume fraction) 38 % 35-52 Automated erythrocyte mean corpuscular volume 85 [ foz_us] 80-99 Automated erythrocyte mean corpuscular h emoglobin (mass per erythrocyte) 28 pg 25-34 Automated erythrocyte mean corpuscular h emoglobin concentration measurement (mass/volume) 33 g/dL 32-36 Automated erythrocyte distribution width ratio 14. 4 % 10.0- 14.5 Automated blood platelet count (count/volume) 252 10*3/uL [...] 10*3 1.0-4.0 Blood monocytes automated count (number/volume) 0. 9 10*3 0.0-1.0 Automated eosinophil count 0.2 10*3/uL 0 .0-0.3 Automated blood basophil count (count/volume) 0.1 10*3/uL 0.0-0.1 Comprehensive metabolic panel - 07/30/16 20:21 Serum or plasma sodium measurement (moles/volume) 140 mmol/L 135-145 Serum or plasma potassium measurement (moles/volume) 4.3 mmol/L 3.6-5.0 Serum or plasma chloride measurement (moles/volume) 106 mmol/L 98-107 Carbon dioxide 25 mmol/L 21-32 Serum or plasma anion gap determination (moles/volume) 9 mmol/L 5-14 Serum or plasma urea nitrogen measurement (mass/volume ) 11 mg/dL 7-18 Serum or plasma creatinine measurement (mass/volume) 0.75 mg/dL 0.60-1.30 Serum or plasma urea nitrogen/creatinine mass ratio 15 NRG Serum or plasma creatinine measurement w ith calculation of estimated glomerular filtration rate > NRG Serum or plasma glucose measurement (mass/volume) 88 mg/dL 70-105 Serum or plasma calcium measurement (mass/volume) 9.2 mg/dL 8.5-10.1 Serum or plasma total bilirubin measurement (mass/volu me) 0.3 mg/dL 0.1-1.0 Serum or plasma alkaline phosphatase afshan surement (enzymatic activity/volume) 47 U/L 40-136 Serum or plasma aspartate aminotransfera se measurement (enzymatic activity/volume) 45 U/L 5-34 Serum or plasma alanine aminotransferase measurement (enzymatic activity/volume) 59 U/L 0-55 Serum or plasma protein measurement (mass/volume) 7.3 g/dL 6.4-8.2 Serum or plasma albumin measurement (mass/volume) 4.0 g/dL 3.2-4.5 Serum or plasma C reactive protein measu rement (mass/volume) - 07/30/16 20:21 Serum or plasma C reactive protein measurement (mass/v olume) 3.47 mg/dL 0.00-0.50 Complete blood count (CBC) with automate d white blood cell (WBC) differential - 11/10/16 11:50 Blood leukocytes automated count (number/volume) 7.7 10*3/uL 4.3-11.0 Blood erythrocytes automated count (number/volume) 5.06 10*6/uL 4.35-5.85 Venous blood hemoglobin measurement (mass/volume) 14.0 g/dL 11.5-16.0 Blood hematocrit (volume fraction) 41 % 35-52 Automated erythrocyte mean corpuscular volume 81 [ foz_us] 80-99 Automated erythrocyte mean corpuscular h emoglobin (mass per erythrocyte) 28 pg 25-34 Automated erythrocyte mean corpuscular h emoglobin concentration measurement (mass/volume) 34 g/dL 32-36 Automated erythrocyte distribution width ratio 14. 5 % 10.0- 14.5 Automated blood platelet count (count/volume) 322 10*3/uL [...] 10*3 1.0-4.0 Blood monocytes automated count (number/volume) 0. 7 10*3 0.0-1.0 Automated eosinophil count 0.3 10*3/uL 0 .0-0.3 Automated blood basophil count (count/volume) 0.0 10*3/uL 0.0-0.1 Methicillin resistant Staphylococcus aur eus (MRSA) screening culture - 11/10/16 11:50 Methicillin resistant Staphylococcus aureus (MRSA) scr eening culture NEG NRG Capillary blood glucose measurement by g lucometer (mass/volume) - 11/17/16 19:31 Capillary blood glucose measurement by glucometer (mas s/volume) 136 mg/dL 70-110 Automated blood complete blood count (he mogram) panel - 11/18/16 06:15 Blood leukocytes automated count (number/volume) 11.8 10*3/uL 4.3-11.0 Blood erythrocytes automated count (number/volume) 4.40 10*6/uL 4.35-5.85 Venous blood hemoglobin measurement (mass/volume) 12.2 g/dL 11.5-16.0 Blood hematocrit (volume fraction) 36 % 35-52 Automated erythrocyte mean corpuscular volume 82 [ foz_us] 80-99 Automated erythrocyte mean corpuscular h emoglobin (mass per erythrocyte) 28 pg 25-34 Automated erythrocyte mean corpuscular h emoglobin concentration measurement (mass/volume) 34 g/dL 32-36 Automated erythrocyte distribution width ratio 14. 5 % 10.0- 14.5 Automated blood platelet count (count/volume) 268 10*3/uL 130-400 Automated blood platelet mean volume measurement 10.0 [foz_us] 7.4-10.4 Whole blood basic metabolic panel - 10/26 08/10 06:15 Serum or plasma sodium measurement (moles/volume) 137 mmol/L 135-145 Serum or plasma potassium measurement (moles/volume) 3.4 mmol/L 3.6-5.0 Serum or plasma chloride measurement (moles/volume) 106 mmol/L 98-107 Carbon dioxide 21 mmol/L 21-32 Serum or plasma anion gap determination (moles/volume) 10 mmol/L 5-14 Serum or plasma urea nitrogen measurement (mass/volume ) 6 mg/dL 7-18 Serum or plasma creatinine measurement (mass/volume) 0.65 mg/dL 0.60-1.30 Serum or plasma urea nitrogen/creatinine mass ratio 9 NRG Serum or plasma creatinine measurement w ith calculation of estimated glomerular filtration rate > NRG Serum or plasma glucose measurement (mass/volume) 125 mg/dL 70-105 Serum or plasma calcium measurement (mass/volume) 9.0 mg/dL 8.5-10.1 Complete urinalysis with reflex to cultu re - 06/20/17 00:25 Urine color determination DARLIN NRG Urine clarity determination SLIGHTLY CLOUDY NRG Urine pH measurement by test strip 5 5-9 Specific gravity of urine by test strip 1.025 1.016-1.022 Urine protein assay by test strip, semi-quantitative 2+ NEGATIVE Urine glucose detection by automated test strip NE GATIVE NEGATIVE Erythrocytes detection in urine sediment by light micr oscopy NEGATIVE NEGATIVE Urine ketones detection by automated test strip NE GATIVE NEGATIVE Urine nitrite detection by test strip NEGATIVE NEGATIVE Urine total bilirubin detection by test strip 1+ NEGATIVE Urine urobilinogen measurement by automated test strip (mass/volume) 4 mg/dL NORMAL Urine leukocyte esterase detection by dipstick 1+ NEGATIVE Automated urine sediment erythrocyte cou nt by microscopy (number/high power field) NONE NRG Automated urine sediment leukocyte count by microscopy (number/high power field) [HPF] NRG Bacteria detection in urine sediment by light microsco py MODERATE NRG Squamous epithelial cells detection in u rine sediment by light microscopy 2-5 NRG Crystals detection in urine sediment by light microsco py NONE NRG Casts detection in urine sediment by light microscopy NONE NRG Mucus detection in urine sediment by light microscopy LARGE NRG Complete urinalysis with reflex to culture YES NRG Bacterial urine culture - 06/20/17 00:25 URINE CULTURE RESULTS <10,000/ML NRG Complete blood count (CBC) with automate d white blood cell (WBC) differential - 06/20/17 00:27 Blood leukocytes automated count (number/volume) 3.2 10*3/uL 4.3-11.0 Blood erythrocytes automated count (number/volume) 4.58 10*6/uL 4.35-5.85 Venous blood hemoglobin measurement (mass/volume) 13.2 g/dL 11.5-16.0 Blood hematocrit (volume fraction) 39 % 35-52 Automated erythrocyte mean corpuscular volume 84 [ foz_us] 80-99 Automated erythrocyte mean corpuscular h emoglobin (mass per erythrocyte) 29 pg 25-34 Automated erythrocyte mean corpuscular h emoglobin concentration measurement (mass/volume) 34 g/dL 32-36 Automated erythrocyte distribution width ratio 14. 9 % 10.0- 14.5 Automated blood platelet count (count/volume) 157 10*3/uL [...] 10*3 1.0-4.0 Blood monocytes automated count (number/volume) 0. 4 10*3 0.0-1.0 Automated eosinophil count 0.0 10*3/uL 0 .0-0.3 Automated blood basophil count (count/volume) 0.0 10*3/uL 0.0-0.1 Comprehensive metabolic panel - 06/20/17 00:27 Serum or plasma sodium measurement (moles/volume) 135 mmol/L 135-145 Serum or plasma potassium measurement (moles/volume) 3.9 mmol/L 3.6-5.0 Serum or plasma chloride measurement (moles/volume) 105 mmol/L 98-107 Carbon dioxide 23 mmol/L 21-32 Serum or plasma anion gap determination (moles/volume) 7 mmol/L 5-14 Serum or plasma urea nitrogen measurement (mass/volume ) 13 mg/dL 7-18 Serum or plasma creatinine measurement (mass/volume) 0.75 mg/dL 0.60-1.30 Serum or plasma urea nitrogen/creatinine mass ratio 17 NRG Serum or plasma creatinine measurement w ith calculation of estimated glomerular filtration rate > NRG Serum or plasma glucose measurement (mass/volume) 104 mg/dL 70-105 Serum or plasma calcium measurement (mass/volume) 8.9 mg/dL 8.5-10.1 Serum or plasma total bilirubin measurement (mass/volu me) 0.7 mg/dL 0.1-1.0 Serum or plasma alkaline phosphatase afshan surement (enzymatic activity/volume) 61 U/L 40-136 Serum or plasma aspartate aminotransfera se measurement (enzymatic activity/volume) 39 U/L 5-34 Serum or plasma alanine aminotransferase measurement (enzymatic activity/volume) 28 U/L 0-55 Serum or plasma protein measurement (mass/volume) 7.8 g/dL 6.4-8.2 Serum or plasma albumin measurement (mass/volume) 4.1 g/dL 3.2-4.5 Serum or plasma C reactive protein measu rement (mass/volume) - 06/20/17 00:27 Serum or plasma C reactive protein measurement (mass/v olume) 1.14 mg/dL 0.00-0.50 Complete urinalysis with reflex to cultu re - 10/05/17 22:57 Urine color determination YELLOW NRG Urine clarity determination CLEAR NR G Urine pH measurement by test strip 6 5-9 Specific gravity of urine by test strip 1.025 1.016-1.022 Urine protein assay by test strip, semi-quantitative NEGATIVE NEGATIVE Urine glucose detection by automated test strip NE GATIVE NEGATIVE Erythrocytes detection in urine sediment by light micr oscopy NEGATIVE NEGATIVE Urine ketones detection by automated test strip NE GATIVE NEGATIVE Urine nitrite detection by test strip NEGATIVE NEGATIVE Urine total bilirubin detection by test strip NEGA TIVE NEGATIVE Urine urobilinogen measurement by automated test strip (mass/volume) 4 mg/dL NORMAL Urine leukocyte esterase detection by dipstick 1+ NEGATIVE Automated urine sediment erythrocyte cou nt by microscopy (number/high power field) NONE NRG Automated urine sediment leukocyte count by microscopy (number/high power field) [HPF] NRG Bacteria detection in urine sediment by light microsco py FEW NRG Squamous epithelial cells detection in u rine sediment by light microscopy 2-5 NRG Crystals detection in urine sediment by light microsco py NONE NRG Casts detection in urine sediment by light microscopy NONE NRG Mucus detection in urine sediment by light microscopy MODERATE NRG Complete urinalysis with reflex to culture YES NRG Bacterial urine culture - 10/05/17 22:57 Bacterial urine culture [id number] NRG COLONY COUNT >100,000/ML NRG FTX;REPORTABLE RML REPORTED SENSITIVITY 10/07/17 11 :05 NRG RML Sensitivity Panel - 10/05/17 22:57 Gentamicin susceptibility test by minimum inhibitory c oncentration <= NRG Trimethoprim/sulfamethoxazole susceptibi lity test by minimum inhibitoryconcentration > NRG Levofloxacin susceptibility test by minimum inhibitory concentration <= NRG Ampicillin susceptibility test by minimum inhibitory c oncentration > NRG Cefazolin susceptibility test by minimum inhibitory co ncentration 4 NRG Ceftriaxone susceptibility test by minimum inhibitory concentration <= NRG Ciprofloxacin susceptibility test by minimum inhibitor y concentration <= NRG Meropenem susceptibility test by minimum inhibitory co ncentration <= NRG Nitrofurantoin susceptibility test by mi nimum inhibitory concentration <= NRG Amoxicillin and clavulanate potassium susc SHOAIB = NRG Complete blood count (CBC) with automate d white blood cell (WBC) differential - 10/05/17 23:07 Blood leukocytes automated count (number/volume) 6.7 10*3/uL 4.3-11.0 Blood erythrocytes automated count (number/volume) 4.26 10*6/uL 4.35-5.85 Venous blood hemoglobin measurement (mass/volume) 12.5 g/dL 11.5-16.0 Blood hematocrit (volume fraction) 37 % 35-52 Automated erythrocyte mean corpuscular volume 86 [ foz_us] 80-99 Automated erythrocyte mean corpuscular h emoglobin (mass per erythrocyte) 29 pg 25-34 Automated erythrocyte mean corpuscular h emoglobin concentration measurement (mass/volume) 34 g/dL 32-36 Automated erythrocyte distribution width ratio 14. 4 % 10.0- 14.5 Automated blood platelet count (count/volume) 229 10*3/uL [...] 10*3 1.0-4.0 Blood monocytes automated count (number/volume) 0. 6 10*3 0.0-1.0 Automated eosinophil count 0.2 10*3/uL 0 .0-0.3 Automated blood basophil count (count/volume) 0.0 10*3/uL 0.0-0.1 Comprehensive metabolic panel - 10/05/17 23:07 Serum or plasma sodium measurement (moles/volume) 141 mmol/L 135-145 Serum or plasma potassium measurement (moles/volume) 4.3 mmol/L 3.6-5.0 Serum or plasma chloride measurement (moles/volume) 109 mmol/L 98-107 Carbon dioxide 23 mmol/L 21-32 Serum or plasma anion gap determination (moles/volume) 9 mmol/L 5-14 Serum or plasma urea nitrogen measurement (mass/volume ) 16 mg/dL 7-18 Serum or plasma creatinine measurement (mass/volume) 0.88 mg/dL 0.60-1.30 Serum or plasma urea nitrogen/creatinine mass ratio 18 NRG Serum or plasma creatinine measurement w ith calculation of estimated glomerular filtration rate > NRG Serum or plasma glucose measurement (mass/volume) 88 mg/dL 70-105 Serum or plasma calcium measurement (mass/volume) 9.3 mg/dL 8.5-10.1 Serum or plasma total bilirubin measurement (mass/volu me) 0.4 mg/dL 0.1-1.0 Serum or plasma alkaline phosphatase afshan surement (enzymatic activity/volume) 47 U/L 40-136 Serum or plasma aspartate aminotransfera se measurement (enzymatic activity/volume) 18 U/L 5-34 Serum or plasma alanine aminotransferase measurement (enzymatic activity/volume) 11 U/L 0-55 Serum or plasma protein measurement (mass/volume) 7.4 g/dL 6.4-8.2 Serum or plasma albumin measurement (mass/volume) 3.9 g/dL 3.2-4.5 Lipase - 10/05/17 23:07 Lipase 46 U/L 8-78 Complete urinalysis with reflex to cultu re - 02/19/18 18:57 Urine color determination YELLOW NRG Urine clarity determination CLEAR NR G Urine pH measurement by test strip 5 5-9 Specific gravity of urine by test strip 1.025 1.016-1.022 Urine protein assay by test strip, semi-quantitative NEGATIVE NEGATIVE Urine glucose detection by automated test strip NE GATIVE NEGATIVE Erythrocytes detection in urine sediment by light micr oscopy NEGATIVE NEGATIVE Urine ketones detection by automated test strip NE GATIVE NEGATIVE Urine nitrite detection by test strip POSITIVE NEGATIVE Urine total bilirubin detection by test strip NEGA TIVE NEGATIVE Urine urobilinogen measurement by automated test strip (mass/volume) NORMAL NORMAL Urine leukocyte esterase detection by dipstick 1+ NEGATIVE Automated urine sediment erythrocyte cou nt by microscopy (number/high power field) NONE NRG Automated urine sediment leukocyte count by microscopy (number/high power field) [HPF] NRG Bacteria detection in urine sediment by light microsco py LARGE NRG Squamous epithelial cells detection in u rine sediment by light microscopy 10-25 NRG Crystals detection in urine sediment by light microsco py NONE NRG Casts detection in urine sediment by light microscopy NONE NRG Mucus detection in urine sediment by light microscopy MODERATE NRG Complete urinalysis with reflex to culture NO NRG Complete blood count (CBC) with automate d white blood cell (WBC) differential - 02/19/18 19:00 Blood leukocytes automated count (number/volume) 6.2 10*3/uL 4.3-11.0 Blood erythrocytes automated count (number/volume) 4.77 10*6/uL 4.35-5.85 Venous blood hemoglobin measurement (mass/volume) 13.7 g/dL 11.5-16.0 Blood hematocrit (volume fraction) 40 % 35-52 Automated erythrocyte mean corpuscular volume 85 [ foz_us] 80-99 Automated erythrocyte mean corpuscular h emoglobin (mass per erythrocyte) 29 pg 25-34 Automated erythrocyte mean corpuscular h emoglobin concentration measurement (mass/volume) 34 g/dL 32-36 Automated erythrocyte distribution width ratio 14. 7 % 10.0- 14.5 Automated blood platelet count (count/volume) 309 10*3/uL [...] 10*3 1.0-4.0 Blood monocytes automated count (number/volume) 0. 4 10*3 0.0-1.0 Automated eosinophil count 0.3 10*3/uL 0 .0-0.3 Automated blood basophil count (count/volume) 0.0 10*3/uL 0.0-0.1 Comprehensive metabolic panel - 02/19/18 19:00 Serum or plasma sodium measurement (moles/volume) 139 mmol/L 135-145 Serum or plasma potassium measurement (moles/volume) 3.8 mmol/L 3.6-5.0 Serum or plasma chloride measurement (moles/volume) 106 mmol/L 98-107 Carbon dioxide 23 mmol/L 21-32 Serum or plasma anion gap determination (moles/volume) 10 mmol/L 5-14 Serum or plasma urea nitrogen measurement (mass/volume ) 12 mg/dL 7-18 Serum or plasma creatinine measurement (mass/volume) 0.73 mg/dL 0.60-1.30 Serum or plasma urea nitrogen/creatinine mass ratio 16 NRG Serum or plasma creatinine measurement w ith calculation of estimated glomerular filtration rate > NRG Serum or plasma glucose measurement (mass/volume) 93 mg/dL 70-105 Serum or plasma calcium measurement (mass/volume) 9.9 mg/dL 8.5-10.1 Serum or plasma total bilirubin measurement (mass/volu me) 0.7 mg/dL 0.1-1.0 Serum or plasma alkaline phosphatase afshan surement (enzymatic activity/volume) 60 U/L 40-136 Serum or plasma aspartate aminotransfera se measurement (enzymatic activity/volume) 26 U/L 5-34 Serum or plasma alanine aminotransferase measurement (enzymatic activity/volume) 22 U/L 0-55 Serum or plasma protein measurement (mass/volume) 8.3 g/dL 6.4-8.2 Serum or plasma albumin measurement (mass/volume) 4.3 g/dL 3.2-4.5 CALCIUM CORRECTED 9.7 mg/dL 8.5-10.1 Lipase - 02/19/18 19:00 Lipase 46 U/L 8-78 Complete blood count (CBC) with automate d white blood cell (WBC) differential - 06/07/18 20:20 Blood leukocytes automated count (number/volume) 5.5 10*3/uL 4.3-11.0 Blood erythrocytes automated count (number/volume) 4.80 10*6/uL 4.35-5.85 Venous blood hemoglobin measurement (mass/volume) 13.5 g/dL 11.5-16.0 Blood hematocrit (volume fraction) 41 % 35-52 Automated erythrocyte mean corpuscular volume 84 [ foz_us] 80-99 Automated erythrocyte mean corpuscular h emoglobin (mass per erythrocyte) 28 pg 25-34 Automated erythrocyte mean corpuscular h emoglobin concentration measurement (mass/volume) 33 g/dL 32-36 Automated erythrocyte distribution width ratio 15. 1 % 10.0- 14.5 Automated blood platelet count (count/volume) 198 10*3/uL 130-400 Automated blood platelet mean volume measurement 9.6 [foz_us] 7.4-10.4 Automated blood neutrophils/100 leukocytes 48 % 42-75 Automated blood lymphocytes/100 leukocytes 37 % 12-44 Blood monocytes/100 leukocytes 11 % 0-12 Automated blood eosinophils/100 leukocytes 4 % 0-10 Automated blood basophils/100 leukocytes 1 % 0-10 Blood neutrophils automated count (number/volume) 2.6 10*3 1.8-7.8 Blood lymphocytes automated count (number/volume) 2.0 10*3 1.0-4.0 Blood monocytes automated count (number/volume) 0. 6 10*3 0.0-1.0 Automated eosinophil count 0.2 10*3/uL 0 .0-0.3 Automated blood basophil count (count/volume) 0.0 10*3/uL 0.0-0.1 Influenza virus A and B antigen detectio n - 06/07/18 20:20 CALL POSITIVES (F1 HELP) CALLED TO JAELYN IN ED AT 2042 [facility] FLU RESULT POSITIVE FOR INFLUENZA B ANT IGEN, NEG FOR A ANTIGEN, BY IA [facility] Comprehensive metabolic panel - 06/07/18 20:20 Serum or plasma sodium measurement (moles/volume) 140 mmol/L 135-145 Serum or plasma potassium measurement (moles/volume) 3.2 mmol/L 3.6-5.0 Serum or plasma chloride measurement (moles/volume) 109 mmol/L 98-107 Carbon dioxide 23 mmol/L 21-32 Serum or plasma anion gap determination (moles/volume) 8 mmol/L 5-14 Serum or plasma urea nitrogen measurement (mass/volume ) 12 mg/dL 7-18 Serum or plasma creatinine measurement (mass/volume) 0.73 mg/dL 0.60-1.30 Serum or plasma urea nitrogen/creatinine mass ratio 16 NRG Serum or plasma creatinine measurement w ith calculation of estimated glomerular filtration rate > NRG Serum or plasma glucose measurement (mass/volume) 105 mg/dL 70-105 Serum or plasma calcium measurement (mass/volume) 9.1 mg/dL 8.5-10.1 Serum or plasma total bilirubin measurement (mass/volu me) 0.4 mg/dL 0.1-1.0 Serum or plasma alkaline phosphatase afshan surement (enzymatic activity/volume) 56 U/L 40-136 Serum or plasma aspartate aminotransfera se measurement (enzymatic activity/volume) 17 U/L 5-34 Serum or plasma alanine aminotransferase measurement (enzymatic activity/volume) 12 U/L 0-55 Serum or plasma protein measurement (mass/volume) 7.6 g/dL 6.4-8.2 Serum or plasma albumin measurement (mass/volume) 4.1 g/dL 3.2-4.5 CALCIUM CORRECTED 9.0 mg/dL 8.5-10.1 Complete urinalysis with reflex to cultu re - 06/07/18 20:30 Urine color determination YELLOW NRG Urine clarity determination CLEAR NR G Urine pH measurement by test strip 5 5-9 Specific gravity of urine by test strip 1.030 1.016-1.022 Urine protein assay by test strip, semi-quantitative 1+ NEGATIVE Urine glucose detection by automated test strip NE GATIVE NEGATIVE Erythrocytes detection in urine sediment by light micr oscopy NEGATIVE NEGATIVE Urine ketones detection by automated test strip NE GATIVE NEGATIVE Urine nitrite detection by test strip NEGATIVE NEGATIVE Urine total bilirubin detection by test strip NEGA TIVE NEGATIVE Urine urobilinogen measurement by automated test strip (mass/volume) 1 mg/dL NORMAL Urine leukocyte esterase detection by dipstick 1+ NEGATIVE Automated urine sediment erythrocyte cou nt by microscopy (number/high power field) NONE NRG Automated urine sediment leukocyte count by microscopy (number/high power field) [HPF] NRG Bacteria detection in urine sediment by light microsco py TRACE NRG Squamous epithelial cells detection in u rine sediment by light microscopy 5-10 NRG Crystals detection in urine sediment by light microsco py NONE NRG Casts detection in urine sediment by light microscopy NONE NRG Mucus detection in urine sediment by light microscopy LARGE NRG Complete urinalysis with reflex to culture NO NRG Encounters ACCT No. Visit Date/Time Discharge Status Pt. Type Provider Facility Loc./Unit Complaint [id number] 07/17/2014 09:33:00 07/17/2014 23:59: 59 CLS Outpatient VERONIQUE VELA APRN [id number] 07/09/2014 15:13:00 07/09/2014 23:59: 59 CLS Outpatient VERONIQUE VELA APRN [id number] 05/01/2014 09:18:00 05/01/2014 23:59: 59 CLS Outpatient VERONIQUE VELA APRN [id number] 03/04/2014 13:51:00 03/04/2014 23:59: 59 CLS Outpatient VERONIQUE VELA APRN [id number] 02/03/2014 10:43:00 02/03/2014 23:59: 59 CLS Outpatient ROLY POPE DO [id number] 10/22/2013 10:48:00 10/22/2013 23:59: 59 CLS Outpatient BERTHA RIOS APRN [id number] 09/19/2013 11:44:00 09/19/2013 23:59: 59 CLS Outpatient ROLY POPE DO [id number] 04/22/2013 08:47:00 04/22/2013 23:59: 59 CLS Outpatient VERONIQUE VELA APRN [id number] 06/20/2012 08:41:00 06/20/2012 23:59: 59 CLS Outpatient ADELINE BASSETT APRN [id number] 04/19/2010 00:00:00 04/19/2010 23:59: 59 CLS Outpatient [id number] 11/15/2012 14:41:00 Document Registration [id number] 08/24/2012 10:24:00 Document Registration [id number] 02/23/2019 13:37:00 15:25:00 DIS Outpatient JAELYN MORALES APRN [facility] ER RASH ALL OVER [id number] 02/21/2019 23:04:00 23:57:00 DIS Emergency CATHI LEMUS, NINO Sahni [facility] ER RASH ON BOTH AR MS,LIGHT HEADED, NAUSEA, [id number] 06/18/2018 19:00:00 20:47:00 DIS Emergency EILEEN SMITH [facility] ER NECK PAIN [id number] 06/07/2018 19:34:00 20:54:00 DIS Emergency JAELYN MORALES APRN [facility] ER STOMACH CRAMPING,DIZZY [id number] 02/19/2018 17:39:00 21:09:00 DIS Emergency JAELYN MORALES APRN [facility] ER POST TUMMY TUCK/ABD [place] N/VOMITING [id number] 01/03/2018 13:30:00 23:59:59 CLS Preadmit SARAHI ERVIN APRN [facility] REHAB L SHOULDER PAIN [id number] 10/05/2017 21:38:00 01:35:00 DIS Emergency NINO WINKLER MD [facility] ER L SIDE ABD PAIN GOING TO L SHOULDER/BACK [id number] 07/26/2017 11:13:00 Tian 14:40:00 DIS Outpatient WATSON PAINTER MD [facility] ENDO SCREENING [id number] 07/24/2017 05:35:00 Tian 13:32:00 DIS Outpatient WATSON PAINTER MD [facility] PREOP COLONOSCOPY [id number] 06/20/2017 00:12:00 018 01:25:00 DIS Emergency JEREMY MAC MD [facility] ER MIDDLE LOWER BACK LOC DANYELLE UP,ABD PAIN PELVIC P [id number] 11/17/2016 11:45:00 017 12:50:00 DIS Inpatient WATSON PAINTER MD, V [facility] 4TH MORBID OBESITY [id number] 11/10/2016 11:38:00 017 23:59:59 CLS Outpatient WATSON PAINTER MD [facility] PREOP MORBID OBESITY [id number] 09/07/2016 09:49:00 017 23:59:59 CLS Outpatient LYSSA MILES SENIOR INFRASTRUCTURE ARCHITECT [facility] RAD REFLUX [id number] 07/30/2016 18:13:00 017 22:03:00 DIS Emergency NINO WINKLER MD [facility] ER POST OP/SOA [id number] 07/28/2016 09:16:00 017 16:00:00 DIS Outpatient HERSON VENTURA DO [facility] SDC LEFT ABDOMINAL MASS [id number] 07/24/2016 13:54:00 017 18:01:00 DIS Emergency NINO WINKLER MD [facility] ER GALLBLADDER/SAIMA K PAIN [id number] 07/22/2016 08:52:00 017 23:59:59 CLS Outpatient WATSON PAINTER MD [facility] CARD ABD PAIN [id number] 07/21/2016 13:36:00 017 23:59:59 CLS Outpatient WATSON PAINTER MD [facility] RAD LLQ PAIN [id number] 04/21/2016 11:45:00 017 14:50:00 DIS Emergency JAELYN MORALES SENIOR INFRASTRUCTURE ARCHITECT [facility] ER RIGHT LOWER BACK PAIN [id number] 03/08/2016 17:20:00 20:33:00 DIS Emergency ADILIA RAHMAN [facility] ER SORE THROAT, CHILLS, B ACK PAIN [id number] 11/23/2015 15:57:00 016 23:59:59 CLS Outpatient SARAHI ERVIN SENIOR INFRASTRUCTURE ARCHITECT [facility] RAD PAIN IN LT KNEE [id number] 11/19/2015 13:24:00 23:59:59 CLS Outpatient SARAHI ERVIN SENIOR INFRASTRUCTURE ARCHITECT [facility] RAD PAIN IN LT KNEE [id number] 09/10/2015 19:22:00 22:20:00 DIS Emergency JUSTUS LIN DO [facility] ER RIGHT ARM PAIN;WEAKNESS ;FEVER [id number] 05/22/2015 08:01:00 23:59:59 CLS Outpatient SARAHI ERVIN SENIOR INFRASTRUCTURE ARCHITECT [facility] RAD LT KNEE INJURY [id number] 03/31/2015 08:56:00 23:59:59 CLS Outpatient QAMAR GODOY SENIOR INFRASTRUCTURE ARCHITECT [facility] RAD SCREENING [id number] 03/13/2015 11:30:00 23:59:59 CLS Outpatient SARAHI ERVIN SENIOR INFRASTRUCTURE ARCHITECT [facility] CARD RIGHT UPPER YULIET DRANT PAIN [id number] 03/04/2015 13:12:00 23:59:59 CLS Outpatient SARAHI ERVIN R SENIOR INFRASTRUCTURE ARCHITECT [facility] RAD RIGHT UPPER YULIET DRANT PAIN [id number] 03/02/2015 18:48:00 22:51:00 DIS Emergency ADILIA RAHMAN [facility] ER ABD PAIN/VOMITING/DIAR BUDDY [id number] 02/07/2015 09:15:00 10:16:00 DIS Emergency YUMIKO MARTINEZ MD [facility] ER PAINFUL BREATHI NG/SORE THROAT [id number] 11/24/2014 15:36:00 08/31/2 015 19:12:00 DIS Emergency ADILIA RAHMAN [facility] ER [id number] 07/12/2014 15:25:00 015 16:30:00 DIS Emergency JAELYN MORALES APRN [facility] ER [id number] 09/12/2013 11:25:00 014 23:59:59 CLS Outpatient [id number] 08/26/2013 14:16:00 014 16:45:00 DIS Emergency JAELYN MORALES APRN [facility] ER [id number] 08/05/2013 10:42:00 12:25:00 DIS Emergency JAELYN MORALES APRN [facility] ER [id number] 11/10/2012 13:43:00 013 23:59:59 CLS Outpatient [id number] 07/12/2014 15:26:00 Document Registration [id number] 03/07/2010 15:59:00 Document Registration [id number] 09/18/2009 08:18:00 Document Registration [id number] 07/24/2009 17:49:00 Document Registration [id number] 02/26/2019 15:20:00 02/26/2019 23:59:5 9 CLS Outpatient JUDIT BASSETT CH
== END 2019-02-23 15:25 | disposition home or self-care (01) ==
LOC: EDUNIT# 13:35 → ER 13:37
DX: R21 Rash and other nonspecific skin eruption (principal); E11.9 Type 2 diabetes mellitus without complications; F41.9 Anxiety disorder, unspecified; E78.00 Pure hypercholesterolemia, unspecified; K58.9 Irritable bowel syndrome, unspecified; Z90.49 Acquired absence of other specified parts of digestive tract; Z87.442 Personal history of urinary calculi; Z87.440 Personal history of urinary (tract) infections; Z90.710 Acquired absence of both cervix and uterus; Z98.51 Tubal ligation status
CPT/HCPCS: 96372; 99284

== ENCOUNTER 2019-03-22 20:58 | Emergency (ER) | payer BC ==
[~2019-03-22] VITALS: Ht 157.5 cm; Wt 76.4 kg
[~2019-03-22 20:58] MED LIST changes: +HYDR-700 PO
--- NOTE | 2019-03-22 22:21 | ED Upper Extremity ---
General Chief Complaint: Upper Extremity Stated Complaint: INJURED RT ARM Nursing Triage Note: PT AMB TO TRIAGE WITH COMPLAINT OF RIGHT ELBOW PAIN. STATES SHE FELL ON THE ICE ABOUT A WEEK AGO AND HAS INCREASING PAIN SINCE. Nursing Sepsis Screen: No Definite Risk History of Present Illness Date Seen by Provider: Mar 22, 2019 Time Seen by Provider: 21:55 Initial Comments 43-year-old female reports that one week ago she fell landing directly on her right elbow. Since then she's been having persistent pain and limitation of motion. She is also noticed some weakness in her right upper extremity. She denies any previous history of injuries to her right elbow. She is right-hand dominant. She has been taking Tylenol every 6-8 hours and alternating heat and ice on her right elbow with no improvement. Onset: last week Pain/Injury Location: right elbow Method of Injury: fell Allergies and Home Medications Allergies Coded Allergies: No Known Drug Allergies (Unverified , 11/10/16) Home Medications Cephalexin 500 Mg Capsule, 500 MG PO QID Prescribed by: NINO SUMNER on 02/21/19 2022 Hydroxyzine HCl 25 Mg Tablet, 25 MG PO Q4H Prescribed by: JAELYN MORALES on 02/23/19 1508 Patient Home Medication List Home Medication List Reviewed: Yes Review of Systems Constitutional: no symptoms reported, see HPI Musculoskeletal: see HPI, joint pain (right elbow) All Other Systems Reviewed Negative Unless Noted: Yes Past Vfowjyv-Vcsmub-Zkstuf Hx Past Med/Social Hx: Reviewed Nursing Past Med/Soc Hx Patient Social History Alcohol Use: Occasionally Uses Number of Drinks Today: AA Alcohol Beverage of Choice: Beer Recreational Drug Use: No Smoking Status: Never a Smoker 2nd Hand Smoke Exposure: No Recent Foreign Travel: No Contact w/Someone Who Travel: No Recent Infectious Disease Expo: No Recent Hopitalizations: No Immunizations Up To Date Tetanus Booster (TDap): Unknown Date of Influenza Vaccine: Jan 25, 2015 Seasonal Allergies Seasonal Allergies: No Past Medical History Surgeries: Yes (LEFT KNEE X2 SCOPE, RIGHT KNEE SCOPE, c/s x4, gastric sleeve, TUMMY TUCK) Appendectomy, Section, Gallbladder, Hysterectomy, Oophorectomy, Orthopedic, Tubal Ligation Respiratory: No Currently Using CPAP: No Currently Using BIPAP: No Cardiac: Yes High Cholesterol Neurological: No Reproductive Disorders: No Female Reproductive Disorders: Denies 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 Sexually Transmitted Disease: No HIV/AIDS: No Genitourinary: Yes Kidney Infection, Bladder Infection, Kidney Stones, UTI-Chronic Gastrointestinal: Yes Chronic Diarrhea, Irritable Bowel Musculoskeletal: Yes Arthritis Endocrine: Yes Diabetes, Non-Insulin dep HEENT: No Loss of Vision: Bilateral Hearing Impairment: Denies Cancer: No Psychosocial: Yes Anxiety Integumentary: Yes Recent Skin Changes Blood Disorders: No Adverse Reaction/Blood Tranf: No Family Medical History No Pertinent Family Hx Physical Exam Vital Signs Vital Signs - First Documented 03/22/19 21:55 Pulse 65 Resp 12 B/P (MAP) 116/80 (92) Pulse Ox 100 O2 Delivery Room Air Capillary Refill : Less Than 3 Seconds Height, Weight, BMI Height: 5'2.00" Weight: 165lbs. 0oz. 74.843550fa; 30.00 BMI Method:Stated General Appearance: WD/WN, no apparent distress Cardiovascular: normal peripheral pulses, regular rate, rhythm Respiratory: chest non-tender, lungs clear, normal breath sounds Elbow/Forearm: Right, bone tenderness (at the ulna and radial head), limited ROM (secondary to pain), pain, soft tissue tenderness Wrist: Yes normal inspection, Yes non-tender, Yes no evidence of injury, Yes normal ROM 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: no motor/sensory deficits, alert, normal mood/affect, oriented x 3 Progress/Results/Core Measures Results/Orders My Orders Orders - KE AGUILAR Elbow, Right, 3 Views (03/22/19 22:16) Vital Signs/I&O 03/22/19 03/22/19 21:55 23:18 Pulse 65 65 Resp 12 12 B/P (MAP) 116/80 (92) 116/80 (92) Pulse Ox 100 100 O2 Delivery Room Air Blood Pressure Mean: 92 Diagnostic Imaging Diagonstic Imaging: Xray Plain Films/CT/US/NM/MRI: elbow Comments No fractures, dislocations or acute bony abnormalities noted, negative fat pad sign. Will be over read by radiology. Departure Impression Primary Impression: Right elbow pain Additional Impression: Fall Qualified Codes: W19.XXXA - Unspecified fall, initial encounter Disposition: HOME, SELF-CARE Condition: Improved Departure-Patient Inst. Decision time for Depature: 23:00 Referrals: [facility] (PCP/Family) Primary Care Physician Patient Instructions: Elbow Sprain (DC) Add. Discharge Instructions: Ice 20 minutes every 2-3 hours to the right elbow. Use sling as needed for discomfort, remove several times daily and do gentle range of motion to the right elbow. Follow-up with your primary care provider for referral to orthopedics if symptoms are not improving or worsen over the next week. Tylenol 650 mg every 6-8 hours as needed for pain. Return to the emergency department for new, urgent health care needs. All discharge instructions reviewed with patient and/or family. Voiced understanding. Work/School Note: Work Release Form Date Seen in the Emergency Department: Mar 22, 2019 Return to Work: Mar 23, 2019 Other Restrictions Listed Below: No lifting greater than 5 pounds with the right upper extremity. KE AGUILAR Mar 22, 2019 22:21
[2019-03-22 23:18] VITALS: BP 116/80
--- NOTE | 2019-03-23 06:55 | Diagnostic Imaging Report ---
INDICATION: Right elbow pain for one week. Time of exam: 10:35 PM 3 views of the right elbow were obtained. Alignment is normal. Joint spaces are well-maintained. No fracture, dislocation or effusion is seen. IMPRESSION: No acute abnormality is detected. Dictated by: Dictated on workstation # [id number]
== END 2019-03-22 23:18 | disposition home or self-care (01) ==
LOC: EDUNIT# 20:58 → ER 21:00
DX: M25.521 Pain in right elbow (principal); E78.00 Pure hypercholesterolemia, unspecified; K58.9 Irritable bowel syndrome, unspecified; E11.9 Type 2 diabetes mellitus without complications; F41.9 Anxiety disorder, unspecified; Z87.442 Personal history of urinary calculi; Z87.440 Personal history of urinary (tract) infections; Z90.49 Acquired absence of other specified parts of digestive tract; Z90.710 Acquired absence of both cervix and uterus; Z98.51 Tubal ligation status; W00.9XXA Unspecified fall due to ice and snow, initial encounter
CPT/HCPCS: 73080

== ENCOUNTER 2019-06-25 08:25 | Emergency (ER) | payer BC ==
[~2019-06-25] VITALS: Ht 157.5 cm; Wt 77.1 kg
[~2019-06-25 08:25] MED LIST changes: -TRAM50TA2 PO; +TRM50T PO
--- OUTSIDE RECORDS SUMMARY | 2019-06-25 08:36 | XMS REPORT ---
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 [address] [place], [place] [id number] [address] [place] [address] Mar, Lip lesion K13.0 [facility] [place] [id number] [place] [address] 03 Mar, 2019 Lateral epicondylitis of rig ht elbow M77.11 [facility] [address] [facility], [place] [address] 03 Feb, 2019 Dermatitis L30.9 and Pruritic dermatitis L29.9 [facility] [id number] [place] [address] 16 Jun, 2018 Left hip pain M25.552 [facility] [address] [address] Mar, Fever R50.9 and Acute nasoph aryngitis J00 [facility] [address] [address] Mar, [address] [address] Nov, Muscle ache M79.[address] [address] Sep, Dysuria R30.[address] [address] Aug, Vasomotor symptoms due to menopause N95. 1 ; Overweight (BMI 25.0-29.9) E66.3 and Varicosities I86.[address] [address] Jun, [facility] [address] [address] Apr, Cough R05 and Influenza J11. [address] [address] 06 Apr, 2017 Screening breast examination Z12.31 ; Br east tenderness in female N64.4 ; Other obesity due to excess calories E66.09 and Body mass index (BMI) of 31.0-31.9 in adult Z68.31 [facility] [address] [address] Apr, Gastroenteritis K52.9 [facility] [id number] [place] [id number] Mar, Dental examination Z01.20 and Dental car ies K02.9 [facility] [address] [address] Feb, Gum abscess K05.[address] [address] Feb, [place] [id number] [place] [address] Dec, Varicosities I86.8 [place] [id number] [place] [address] Sep, [place] [address] [place] [address] Sep, [place] [address] [address] Sep, Anxiety state, unspecified F41.1 [place] [address] [address] Aug, Unspecified mood [affective] disorder F3 9 and Eating disorder, unspecified F50.9 [place] [id number] [place] [address] Aug, Anxiety state, unspecified F41.1 [place] [address] [place] [address] 13 Jun, 2016 [place] [address] [address] 11 Jun, 2016 Fatigue, unspecified type R53.83 [place] [id number] [place] [address] 07 Jun, 2016 Abdominal pain, left lower quadrant R10. 32 ; Candidiasis, cutaneous B37.2 ; Fatigue, unspecified type R53.83 ; Morbid (severe) obesity due to excess calories E66.01 ; General medical exam Z00.00 and Diverticulitis of large intestine without perforation or abscess without bleeding K57.32 [facility] [address] [facility] [id number] [place] [address] 02 May, 2016 Left wrist pain M25.532 and Left wrist sprain, initial encounter S63.502A [place] [id number] [place] [address] 02 May, 2016 General medical exam Z00.00 [place] [address] [address] 12 Mar, 2016 Encounter for routine adult health exami [facility] with abnormal findings Z00.01 ; Body mass index (BMI) of 40.0-44.9 in adult Z68.41 ; Morbid (severe) obesity due to excess calories E66.01 ; History of IBS Z87.19 and Family history of colon cancer requiring screening colonoscopy Z80.0 [place] [address] [address] Oct, [address] [address] Oct, Other acute postprocedural pain G89.18 ; Pain in left knee M25.562 ; Family history of colon cancer requiring screening colonoscopy Z80.0 and Hyperpigmentation L81.9 [place] [address] [address] May, [address] [address] May, Left knee injury S89.92XA [address] [address] Apr, [address] [address] Apr, Left knee injury S89.92XA and Varicositi es I86.[address] [address] Mar, [facility] [address] [facility] [id number] [address] [place] [address] Mar, Acute pain of left knee M25. 562 and Strain of left knee, initial encounter S86.912A [address] [address] Mar, Lower abdominal tenderness R10.819 and B reast tenderness N64.[address] [address] Feb, [address] [address] 23 Feb, 2015 Well woman exam Z01.419 ; Vaginal discha rge N89.8 ; Lower abdominal tenderness R10.819 ; [...] and Complex cyst of left ovary N83.[address] [address] 16 Feb, 2015 Abdominal pain R10.9 and Pelvic pain R10 .[address] [address] Feb, [address] [address] Feb, [address] [address] Feb, General medical exam Z00.00 ; Right uppe r quadrant pain R10.11 and History of borderline diabetes mellitus Z87.[address] [address] Feb, Right upper quadrant pain R10.[address] [address] 28 Jun, 2014 Lumbago 724.[address] [address] 14 Jun, [address] [address] 13 Jun, [address] [address] May, [facility] [address] [facility] [place] [address] May, [facility] [address] [facility] [place] [address] Apr, [facility] [address] [facility] [place] [address] Apr, [facility] [address] [facility] [place] [address] Mar, [facility] [address] [id number] [place] [address] Mar, [facility] [address] [facility] [place] [address] Mar, [facility] [address] [facility] [place] [address] Mar, [facility] [address] [facility] [place] [address] Mar, [facility] [address] [id number] [place] [address] Mar, [facility] [address] [id number] [place] [address] Mar, [facility] [address] [id number] [place] [address] Feb, [facility] [address] [facility] [place] [address] Feb, [facility] [address] [id number] [place] [address] Feb, [facility] [address] [id number] [place] [address] Feb, [facility] [address] [id number] [place] [address] Feb, [facility] [address] [id number] [place] [address] Jan, [facility] [address] [id number] [place] [address] Jan, [facility] [address] [facility] [id number] [place] [address] Oct, [facility] [address] [facility] [id number] [place] [address] Oct, [facility] [address] [id number] [place] [address] Sep, [facility] [address] [id number] [place] [address] Sep, [facility] [address] [facility] [id number] [place] [address] Aug, [facility] [address] [id number] [place] [address] Aug, [facility] [address] [id number] [place] [address] Aug, [facility] [address] [id number] [place] [address] Apr, [facility] [address] [id number] [place] [address] Apr, [facility] [address] [id number] [place] [address] Apr, [facility] [address] [id number] [place] [address] Apr, [facility] [address] [id number] [place] [address] Apr, [facility] [address] [facility] [id number] [place] [address] Mar, [facility] [address] [id number] [place] [address] Mar, [facility] [address] [id number] [place] [address] Mar, [facility] [address] [id number] [place] [address] Mar, [facility] [address] [id number] [place] [address] Mar, [facility] [id number] [place] [address] Mar, [facility] [id number] [place] [address] Mar, [facility] [id number] [place] [address] Mar, [facility] [id number] [place] [address] Mar, [facility] [id number] [place] [address] Oct, [facility] [id number] [place] [address] July, [facility] [id number] [place] [address] July, [facility] [id number] [place] [address] Jun, [facility] [id number] [place] [address] May, [facility] [id number] [place] [address] Feb, [facility] [id number] [place] [address] Feb, [facility] [id number] [place] [address] July, [facility] [id number] [place] [address] Apr, [facility] [id number] [place] [address] Jan, IMMUNIZATIONS No Known Immunizations SOCIAL HISTORY Never Assessed REASON FOR VISIT PLAN OF CARE VITAL SIGNS Height 62 in 2013-04-19 Weight 231.6 lbs 2013-04-19 Temperature 98.6 degrees Fahrenheit 2013-04-19 Heart Rate 88 bpm 2013-04-19 Respiratory Rate 18 2013-04-19 Blood pressure systolic 130 mmHg 2013-04-19 Blood pressure diastolic 78 mmHg 2013-04-19 MEDICATIONS Unknown Medications RESULTS No Results PROCEDURES No Known procedures INSTRUCTIONS MEDICATIONS ADMINISTERED No Known Medications MEDICAL (GENERAL) HISTORY Type Description Date Medical History ovarian cysts Medical History left knee surgery Medical History History of IBS Medical History varicose vein ligation- left leg Medical History gastric bypass 2015 Surgical History appendectomy Surgical History hysterectomy- complete Surgical History right knee arthroscopy Surgical History section x 4 Surgical History left knee arthroscopy Surgical History gastric sleeve--Dr. Villalba 11/17/16 Surgical History gall bladder and left ovary removed 09/13 16 Surgical History left leg vein stripping 10/2017 Surgical History tummy tuck 01/2018 Hospitalization History Surgery and childbirth only
--- OUTSIDE RECORDS SUMMARY | 2019-06-25 08:36 | XMS REPORT ---
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 [address] [place] [id number] [address] [place] [address] Mar, Lip lesion K13.0 [facility] [place] [address] [id number] [address] [place] [address] 03 Mar, 2019 Lateral epicondylitis of rig ht elbow M77.11 [facility] [address] [facility] [address] 03 Feb, 2019 Dermatitis L30.9 and Pruritic dermatitis L29.9 [facility] [id number] [place] [address] Jun, Left hip pain M25.552 [facility] W[facility] IN [address] [address] Mar, Fever R50.9 and Acute nasoph aryngitis J00 [facility] WALK IN [address] [address] Mar, [address] [address] Nov, Muscle ache M79.[address] [address] Sep, Dysuria R30.[address] [address] Aug, Vasomotor symptoms due to menopause N95. 1 ; Overweight (BMI 25.0-29.9) E66.3 and Varicosities I86.[address] [address] Jun, [facility] WALK IN [address] [address] Apr, Cough R05 and Influenza J11. [address] [address] 06 Apr, 2017 Screening breast examination Z12.31 ; Br east tenderness in female N64.4 ; Other obesity due to excess calories E66.09 and Body mass index (BMI) of 31.0-31.9 in adult Z68.31 [facility] WALK IN [address] [address] Apr, Gastroenteritis K52.9 [facility] [id number] [place] [id number] Mar, Dental examination Z01.20 and Dental car ies K02.9 [facility] WALK IN [address] [address] Feb, Gum abscess K05.[address] [address] Feb, [place] [id number] [place] [address] Dec, Varicosities I86.8 [place] [id number] [place] [address] Sep, [place] [address] [place] [address] Sep, [place] [address] [address] Sep, Anxiety state, unspecified F41.1 [place] [address] [address] Aug, Unspecified mood [affective] disorder F3 9 and Eating disorder, unspecified F50.9 [place] [id number] [place] [address] Aug, Anxiety state, unspecified F41.1 [place] [address] [place] [address] 13 Jun, 2016 [place] [address] [address] 11 Jun, 2016 Fatigue, unspecified type R53.83 [place] [id number] [place] [address] 07 Jun, 2016 Abdominal pain, left lower quadrant R10. 32 ; Candidiasis, cutaneous B37.2 ; Fatigue, unspecified type R53.83 ; Morbid (severe) obesity due to excess calories E66.01 ; General medical exam Z00.00 and Diverticulitis of large intestine without perforation or abscess without bleeding K57.32 [facility] [address] [facility] [id number] [address] [place] [address] 02 May, 2016 Left wrist pain M25.532 and Left wrist sprain, initial encounter S63.502A [place] [id number] [place] [address] 02 May, 2016 General medical exam Z00.00 [place] [address] [address] 12 Mar, 2016 Encounter for routine adult health exami [facility] with abnormal findings Z00.01 ; Body mass index (BMI) of 40.0-44.9 in adult Z68.41 ; Morbid (severe) obesity due to excess calories E66.01 ; History of IBS Z87.19 and Family history of colon cancer requiring screening colonoscopy Z80.0 [place] [address] [address] Oct, [address] [address] Oct, Other acute postprocedural pain G89.18 ; Pain in left knee M25.562 ; Family history of colon cancer requiring screening colonoscopy Z80.0 and Hyperpigmentation L81.9 [place] [address] [address] May, [address] [address] May, Left knee injury S89.92XA [address] [address] Apr, [address] [address] Apr, Left knee injury S89.92XA and Varicositi es I86.[address] [address] Mar, [facility] [address] [facility] [id number] [address] [place] [address] Mar, Acute pain of left knee M25. 562 and Strain of left knee, initial encounter S86.912A [address] [address] Mar, Lower abdominal tenderness R10.819 and B reast tenderness N64.[address] [address] Feb, [address] [address] 23 Feb, 2015 Well woman exam Z01.419 [...] and Complex cyst of left ovary N83.[address] [address] 16 Feb, 2015 Abdominal pain R10.9 and Pelvic pain R10 .[address] [address] Feb, [address] [address] Feb, [address] [address] Feb, General medical exam Z00.00 ; Right uppe r quadrant pain R10.11 and History of borderline diabetes mellitus Z87.[address] [address] Feb, Right upper quadrant pain R10.[address] [address] 28 Jun, 2014 [address] [address] 14 Jun, [address] [address] 13 Jun, [address] [address] May, [facility] [address] [id number] [place] [address] May, [facility] [address] [id number] [place] [address] Apr, [facility] [address] [id number] [place] [address] Apr, [facility] [address] [id number] [place] [address] Mar, [facility] [address] [id number] [place] [address] Mar, [facility] [address] [id number] [place] [address] Mar, [facility] [address] [id number] [place] [address] Mar, [facility] [address] [id number] [place] [address] Mar, [facility] [address] [id number] [place] [address] Mar, [facility] [address] [id number] [place] [address] Mar, [facility] [address] [id number] [place] [address] Feb, [facility] [address] [id number] [place] [address] Feb, [facility] [address] [id number] [place] [address] Feb, [facility] [address] [id number] [place] [address] Feb, [facility] [address] [id number] [place] [address] Feb, [facility] [address] [id number] [place] [address] Jan, [facility] [address] [id number] [place] [address] Jan, [facility] [address] [facility] [id number] [place] [address] Oct, [facility] [address] [facility] [id number] [place] [address] Oct, [facility] [address] [id number] [place] [address] Sep, [facility] [address] [id number] [place] [address] Sep, [facility] [address] [facility] [id number] [place] [address] Aug, [facility] [address] [id number] [place] [address] Aug, [facility] [address] [id number] [place] [address] Aug, [facility] [address] [id number] [place] [address] Apr, [facility] [address] [id number] [place] [address] Apr, [facility] [address] [id number] [place] [address] Apr, [facility] [address] [id number] [place] [address] Apr, [facility] [address] [id number] [place] [address] Apr, [facility] [address] [facility] [id number] [place] [address] Mar, [facility] [address] [id number] [place] [address] Mar, [facility] [address] [id number] [place] [address] Mar, [facility] [address] [id number] [place] [address] Mar, [facility] [address] [id number] [place] [address] Mar, [facility] [id number] [place] [address] Mar, [facility] [id number] [place] [address] Mar, [facility] [id number] [place] [address] Mar, [facility] [id number] [place] [address] Mar, [facility] [id number] [place] [address] Oct, [facility] [id number] [place] [address] July, [facility] [id number] [place] [address] July, [facility] [id number] [place] [address] Jun, [facility] [id number] [place] [address] May, [facility] [id number] [place] [address] Feb, [facility] [id number] [place] [address] Feb, [facility] [id number] [place] [address] July, [facility] [id number] [place] [address] Apr, [facility] [id number] [place] [address] Jan, IMMUNIZATIONS No Known Immunizations SOCIAL HISTORY Never Assessed REASON FOR VISIT PLAN OF CARE VITAL SIGNS MEDICATIONS Unknown Medications RESULTS No Results PROCEDURES No Known procedures INSTRUCTIONS MEDICATIONS ADMINISTERED No Known Medications MEDICAL (GENERAL) HISTORY Type Description Date Medical History ovarian cysts Medical History left knee surgery Medical History History of IBS Medical History varicose vein ligation- left leg Medical History gastric bypass 2016 Surgical History appendectomy Surgical History hysterectomy- complete Surgical History right knee arthroscopy Surgical History section x 4 Surgical History left knee arthroscopy Surgical History gastric sleeve--Dr. Villalba 11/17/16 Surgical History gall bladder and left ovary removed 09/13 16 Surgical History left leg vein stripping 10/2017 Surgical History jazmine peacock 01/2018 Hospitalization History Surgery and childbirth only
--- OUTSIDE RECORDS SUMMARY | 2019-06-25 08:36 | XMS REPORT ---
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 Active 8837025 09 Problem Anxiety state, unspecified F41.1 Act flores 695901558 Problem Vasomotor symptoms due to menopause N95.1 Active 638393210 ALLERGIES No Information ENCOUNTERS Encounter Location Date Diagnosis [place] [id number] [place] [address] 18 Apr, 2019 Lateral epicondylitis of right elbow M77 .[address] [address] Mar, Lateral epicondylitis of right elbow M77 .11 [facility] [address] [place] [id number] [address] [place] [address] Mar, Lip lesion K13.0 [facility]ALK IN [place] [id number] [place] [address] 03 Mar, 2019 Lateral epicondylitis of rig ht elbow M77.11 [facility] [address] [facility], [place] [address] 03 Feb, 2019 Dermatitis L30.9 and Pruritic dermatitis L29.9 [facility] [address] [place] [address] 16 Jun, 2018 Left hip pain M25.552 [facility] [address] [address] Mar, Fever R50.9 and Acute nasoph aryngitis J00 [facility] WALK IN [address] [address] Mar, [address] [address] Nov, Muscle ache M79.[address] [address] Sep, Dysuria R30.[address] [address] Aug, Vasomotor symptoms due to menopause N95. 1 ; Overweight (BMI 25.0-29.9) E66.3 and Varicosities I86.[address] [address] Jun, [facility] WALK IN [address] [address] Apr, Cough R05 and Influenza J11. [address] [address] 06 Apr, 2017 Screening breast examination Z12.31 ; Br east tenderness in female N64.4 ; Other obesity due to excess calories E66.09 and Body mass index (BMI) of 31.0-31.9 in adult Z68.31 [facility] WALK IN [address] [address] Apr, Gastroenteritis K52.9 [facility] [id number] [place] [id number] Mar, Dental examination Z01.20 and Dental car ies K02.9 [facility] WALK IN [address] [address] Feb, Gum abscess K05.[address] [address] Feb, [place] [id number] [place] [address] Dec, Varicosities I86.8 [place] [id number] [place] [address] Sep, [place] [id number] [place] [address] Sep, [place] [address] [address] Sep, Anxiety state, unspecified F41.1 [place] [address] [address] Aug, Unspecified mood [affective] disorder F3 9 and Eating disorder, unspecified F50.9 [place] [id number] [place] [address] Aug, Anxiety state, unspecified F41.1 [place] [address] [place] [address] 13 Jun, 2016 [place] [address] [address] 11 Jun, 2016 Fatigue, unspecified type R53.83 [place] [id number] [place] [address] 07 Jun, 2016 Abdominal pain, left lower quadrant R10. 32 ; Candidiasis, cutaneous B37.2 ; Fatigue, unspecified type R53.83 ; Morbid (severe) obesity due to excess calories E66.01 ; General medical exam Z00.00 and Diverticulitis of large intestine without perforation or abscess without bleeding K57.32 [facility] [address] [facility] [id number] [address] [place] [address] 02 May, 2016 Left wrist pain M25.532 and Left wrist sprain, initial encounter S63.502A [place] [id number] [place] [address] 02 May, 2016 General medical exam Z00.00 [place] [address] [address] 12 Mar, 2016 Encounter for routine adult health exami [facility] with abnormal findings Z00.01 ; Body mass index (BMI) of 40.0-44.9 in adult Z68.41 ; Morbid (severe) obesity due to excess calories E66.01 ; History of IBS Z87.19 and Family history of colon cancer requiring screening colonoscopy Z80.0 [place] [address] [address] Oct, [address] [address] Oct, Other acute postprocedural pain G89.18 ; Pain in left knee M25.562 ; Family history of colon cancer requiring screening colonoscopy Z80.0 and Hyperpigmentation L81.9 [place] [address] [address] May, [address] [address] May, Left knee injury S89.92XA [address] [address] Apr, [address] [address] Apr, Left knee injury S89.92XA and Varicositi es I86.[address] [address] Mar, [facility] [address] [facility] [id number] [address] [place] [address] Mar, Acute pain of left knee M25. 562 and Strain of left knee, initial encounter S86.912A [address] [address] Mar, Lower abdominal tenderness R10.819 and B reast tenderness N64.[address] [address] Feb, [address] [address] 23 Feb, 2015 Well woman exam Z01.419 [...] and Complex cyst of left ovary N83.[address] [address] 16 Feb, 2015 Abdominal pain R10.9 and Pelvic pain R10 .[address] [address] Feb, [address] [address] Feb, [address] [address] Feb, General medical exam Z00.00 ; Right uppe r quadrant pain R10.11 and History of borderline diabetes mellitus Z87.[address] [address] Feb, Right upper quadrant pain R10.[address] [address] 28 Jun, 2014 Lumbago 724.[address] [address] 14 Jun, [address] [address] 13 Jun, [address] [address] May, [facility] [address] [facility] [place] [address] May, [facility] [address] [facility] [place] [address] Apr, [facility] [address] [facility] [place] [address] Apr, [facility] [address] [facility] [place] [address] Mar, [facility] [address] [facility] [place] [address] Mar, [facility] [address] [id number] [place] [address] Mar, [facility] [address] [facility] [place] [address] Mar, [facility] [address] [id number] [place] [address] Mar, [facility] [address] [id number] [place] [address] Mar, [facility] [address] [id number] [place] [address] Mar, [facility] [address] [id number] [place] [address] Feb, [facility] [address] [id number] [place] [address] Feb, [facility] [address] [id number] [place] [address] Feb, [facility] [address] [id number] [place] [address] Feb, [facility] [address] [id number] [place] [address] Feb, [facility] [address] [id number] [place] [address] Jan, [facility] [address] [id number] [place] [address] Jan, [facility] [address] [facility] [id number] [place] [address] Oct, [facility] [address] [facility] [id number] [place] [address] Oct, [facility] [address] [id number] [place] [address] Sep, [facility] [address] [id number] [place] [address] Sep, [facility] [address] [facility] [id number] [place] [address] Aug, [facility] [address] [id number] [place] [address] Aug, [facility] [address] [id number] [place] [address] Aug, [facility] [address] [id number] [place] [address] Apr, [facility] [address] [id number] [place] [address] Apr, [facility] [address] [id number] [place] [address] Apr, [facility] [address] [id number] [place] [address] Apr, [facility] [address] [id number] [place] [address] Apr, [facility] [address] [facility] [id number] [place] [address] Mar, [facility] [address] [id number] [place] [address] Mar, [facility] [address] [id number] [place] [address] Mar, [facility] [address] [id number] [place] [address] Mar, [facility] [address] [id number] [place] [address] Mar, [facility] [id number] [place] [address] Mar, [facility] [id number] [place] [address] Mar, [facility] [id number] [place] [address] Mar, [facility] [id number] [place] [address] Mar, [facility] [address] [id number] [place] [address] Oct, [facility] [address] [id number] [place] [address] July, [facility] [address] [id number] [place] [address] July, [facility] [address] [id number] [place] [address] Jun, [facility] [address] [id number] [place] [address] May, [facility] [address] [id number] [place] [address] Feb, [facility] [address] [id number] [place] [address] Feb, [facility] [address] [id number] [place] [address] July, [facility] [address] [id number] [place] [address] Apr, [facility] [address] [id number] [place] [address] Jan, IMMUNIZATIONS No Known Immunizations SOCIAL HISTORY [...]
--- OUTSIDE RECORDS SUMMARY | 2019-06-25 08:36 | XMS REPORT ---
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 Active [id number] Problem Anxiety state, unspecified F41.1 Act flores [id number] Problem Vasomotor symptoms due to menopause N95.1 Active [id number] ALLERGIES No Information ENCOUNTERS Encounter Location Date Diagnosis [place] [id number] [place] [address] 18 Apr, 2019 Lateral epicondylitis of right elbow M77 .[address] [address] Mar, Lateral epicondylitis of right elbow M77 .11 [facility] [address] [place], [place] [id number] [address] [place] [address] Mar, Lip lesion K13.0 [facility] [place] [address] [id number] [address] [place] [address] 03 Mar, 2019 Lateral epicondylitis of rig ht elbow M77.11 [facility] [address] [facility] [address] 03 Feb, 2019 Dermatitis L30.9 and Pruritic dermatitis L29.9 [facility] [id number] [place] [address] 16 Jun, 2018 Left hip pain M25.552 [facility] [address] [address] Mar, Fever R50.9 and Acute nasoph aryngitis J00 [facility] [address] [address] Mar, [address] [address] Nov, Muscle ache M79.[address] [address] Sep, Dysuria R30.[address] [address] Aug, Vasomotor symptoms due to menopause N95. 1 ; Overweight (BMI 25.0-29.9) E66.3 and Varicosities I86.[address] [address] Jun, [facility] [address] [address] Apr, Cough R05 and Influenza J11. [address] [address] 06 Apr, 2017 Screening breast examination Z12.31 ; Br east tenderness in female N64.4 ; Other obesity due to excess calories E66.09 and Body mass index (BMI) of 31.0-31.9 in adult Z68.31 [facility] [address] [address] Apr, Gastroenteritis K52.9 [facility] [id number] [place] [id number] Mar, Dental examination Z01.20 and Dental car ies K02.9 [facility] [address] [address] Feb, Gum abscess K05.[address] [address] Feb, [place] [id number] [place] [address] Dec, Varicosities I86.8 [place] [id number] [place] [address] Sep, [place] [id number] [place] [address] Sep, [place] [address] [address] Sep, Anxiety state, unspecified F41.1 [place] [address] [address] Aug, Unspecified mood [affective] disorder F3 9 and Eating disorder, unspecified F50.9 [place] [id number] [place] [address] Aug, Anxiety state, unspecified F41.1 [place] [id number] [place] [address] 13 Jun, 2016 [place] [address] [address] 11 Jun, 2016 Fatigue, unspecified type R53.83 [place] [id number] [place] [address] 07 Jun, 2016 Abdominal pain, left lower quadrant R10. 32 ; Candidiasis, cutaneous B37.2 ; Fatigue, unspecified type R53.83 ; Morbid (severe) obesity due to excess calories E66.01 ; General medical exam Z00.00 and Diverticulitis of large intestine without perforation or abscess without bleeding K57.32 [facility] [address] [facility] [id number] [address] [place] [address] 02 May, 2016 Left wrist pain M25.532 and Left wrist sprain, initial encounter S63.502A [place] [id number] [place] [address] 02 May, 2016 General medical exam Z00.00 [place] [address] [address] 12 Mar, 2016 Encounter for routine adult health exami [facility] emergency department with abnormal findings Z00.01 ; Body mass index (BMI) of 40.0-44.9 in adult Z68.41 ; Morbid (severe) obesity due to excess calories E66.01 ; History of IBS Z87.19 and Family history of colon cancer requiring screening colonoscopy Z80.0 [place] [address] [address] Oct, [address] [address] Oct, Other acute postprocedural pain G89.18 ; Pain in left knee M25.562 ; Family history of colon cancer requiring screening colonoscopy Z80.0 and Hyperpigmentation L81.9 [place] [address] [address] May, [address] [address] May, Left knee injury S89.92XA [address] [address] Apr, [address] [address] Apr, Left knee injury S89.92XA and Varicositi es I86.[address] [address] Mar, [facility] [address] [facility] [id number] [address] [place] [address] Mar, Acute pain of left knee M25. 562 and Strain of left knee, initial encounter S86.912A [address] [address] Mar, Lower abdominal tenderness R10.819 and B reast tenderness N64.[address] [address] Feb, [address] [address] 23 Feb, 2015 Well woman exam Z01.419 [...] and Complex cyst of left ovary N83.[address] [address] 16 Feb, 2015 Abdominal pain R10.9 and Pelvic pain R10 .[address] [address] Feb, [address] [address] Feb, [address] [address] Feb, General medical exam Z00.00 ; Right uppe r quadrant pain R10.11 and History of borderline diabetes mellitus Z87.[address] [address] Feb, Right upper quadrant pain R10.[address] [address] 28 Jun, 2014 Lumbago 724.[address] [address] 14 Jun, [address] [address] 13 Jun, [address] [address] May, [facility] [address] [id number] [place] [address] May, [facility] [address] [id number] [place] [address] Apr, [facility] [address] [id number] [place] [address] Apr, [facility] [address] [id number] [place] [address] Mar, [facility] [address] [id number] [place] [address] Mar, [facility] [address] [id number] [place] [address] Mar, [facility] [address] [id number] [place] [address] Mar, [facility] [address] [id number] [place] [address] Mar, [facility] [address] [id number] [place] [address] Mar, [facility] [address] [id number] [place] [address] Mar, [facility] [address] [id number] [place] [address] Feb, [facility] [address] [id number] [place] [address] Feb, [facility] [address] [id number] [place] [address] Feb, [facility] [address] [id number] [place] [address] Feb, [facility] [address] [id number] [place] [address] Feb, [facility] [address] [id number] [place] [address] Jan, [facility] [address] [id number] [place] [address] Jan, [facility] [address] [facility] [facility] [id number] [place] [address] Oct, [facility] [address] [facility] [facility] [id number] [place] [address] Oct, [facility] [address] [id number] [place] [address] Sep, [facility] [address] [id number] [place] [address] Sep, [facility] [address] [facility] [facility] [id number] [place] [address] Aug, [facility] [address] [id number] [place] [address] Aug, [facility] [address] [id number] [place] [address] Aug, [facility] [address] [id number] [place] [address] Apr, [facility] [address] [id number] [place] [address] Apr, [facility] [address] [id number] [place] [address] Apr, [facility] [address] [id number] [place] [address] Apr, [facility] [address] [id number] [place] [address] Apr, [facility] [address] [facility] [id number] [place] [address] Mar, [facility] [address] [id number] [place] [address] Mar, [facility] [address] [id number] [place] [address] Mar, [facility] [address] [id number] [place] [address] Mar, [facility] [address] [id number] [place] [address] Mar, [facility] [id number] [place] [address] Mar, [facility] [id number] [place] [address] Mar, [facility] [id number] [place] [address] Mar, [facility] [id number] [place] [address] Mar, [facility] [id number] [place] [address] Oct, [facility] [id number] [place] [address] July, [facility] [id number] [place] [address] July, [facility] [id number] [place] [address] Jun, [facility] [id number] [place] [address] May, [facility] [id number] [place] [address] Feb, [facility] [id number] [place] [address] Feb, [facility] [id number] [place] [address] July, [facility] [id number] [place] [address] Apr, [facility] [id number] [place] [address] Jan, IMMUNIZATIONS No Known Immunizations SOCIAL HISTORY [...]
--- OUTSIDE RECORDS SUMMARY | 2019-06-25 08:39 | XMS REPORT | Continuity of Care Document ---
Author Organization Unknown Address Unknown Phone Unavailable Allergies Active Description Code Type Severity Reaction Onset Reported/Identified Relationship to Patient Clinical Status Yes NKANo Known Allergies NKA Miscellaneous Allergy Mild N/A 07/24/2016 Yes No Known Drug Allergies [id number] Drug Allergy Unknown N/A 11/10/2016 Medications There [...] Sample Taken For Pap Smear 01/26/2009 MIRIAN ANIMAL RIDE ATTENDANT, VERONIQUE R V72.31 Cervix Sample Taken For [...] POPE DO 009.1 GASTROENTERITIS INFECT 05/11/2009 GABRIEL ANIMAL RIDE ATTENDANT, BERTHA S 009.1 GASTROENTERITIS INFECT 05/11/2009 ROLY POPE DO K 009.1 GASTROENTERITIS INFECT 05/11/2009 MIRIAN ANIMAL RIDE ATTENDANT, VERONIQUE R 009.1 GASTROENTERITIS INFECT 05/11/2009 MIRIAN ANIMAL RIDE ATTENDANT, VERONIQUE R 009.1 GASTROENTERITIS INFECT 05/11/2009 MIRIAN ANIMAL RIDE ATTENDANT, VERONIQUE R 009.1 GASTROENTERITIS INFECT 05/11/2009 MIRIAN ANIMAL RIDE ATTENDANT, VERONIQUE R 009.1 GASTROENTERITIS INFECT 07/24/2009 Ot [...] R 716.90 ARTHRITIS/ ARTHROPATHY, UNSPECIFIED 08/10/2009 MIRIAN ANIMAL RIDE ATTENDANT, VERONIQUE R 724.5 BACKACHE UNSPECIFIED 08/10/2009 MIRIAN ANIMAL RIDE ATTENDANT, VERONIQUE R 716.90 ARTHRITIS/ ARTHROPATHY, UNSPECIFIED 08/10/2009 MIRIAN ANIMAL RIDE ATTENDANT, VERONIQUE R 724.5 BACKACHE UNSPECIFIED 08/10/2009 MIRIAN ANIMAL RIDE ATTENDANT, VERONIQUE R 716.90 ARTHRITIS/ ARTHROPATHY, UNSPECIFIED 08/10/2009 MIRIAN ANIMAL RIDE ATTENDANT, VERONIQUE R 724.5 BACKACHE UNSPECIFIED 09/10/2009 717.7 JAMIL DROMALACIA OF [place] 09/10/2009 836.0 TEAR OF MEDIAL CARTILAGE OR MENISCUS OF KNEE, CURRENT 09/10/2009 ADELINE BASSETT APRN 717.7 CHONDROMALACIA OF [place] 09/10/2009 ADLEINE BASSETT APRN 836.0 TEAR OF MEDIAL CARTILAGE [...] S 717.7 CHONDROMALACIA OF [place] 09/10/2009 GABRIEL ANIMAL RIDE ATTENDANT, BERTHA S 836.0 TEAR OF MEDIAL CARTILAGE OR MENISCUS OF KNEE, CURRENT 09/10/2009 POPE DO ROLY K 717.7 CHONDROMALACIA OF [place] 09/10/2009 POPE DO, ROLY K 836.0 TEAR OF MEDIAL CARTILAGE OR MENISCUS OF KNEE, CURRENT 09/10/2009 MIRIAN ANIMAL RIDE ATTENDANT, VERONIQUE R 717.7 CHONDROMALACIA OF [place] 09/10/2009 [...] POPE DO 726.73 HEEL SPUR 08/24/2012 MIRIAN ANIMAL RIDE ATTENDANT, VERONIQUE R 726.73 HEEL SPUR 08/24/2012 MIRIAN ANIMAL RIDE ATTENDANT, VERONIQUE R 726.73 HEEL SPUR 08/24/2012 MIRIAN NEALN, VERONIQUE R 726.73 HEEL SPUR 08/24/2012 MIRIAN ANIMAL RIDE ATTENDANT, VERONIQUE R 726.73 HEEL SPUR 04/19/2013 MIRIAN [...] VERONIQUE R 783.1 ABNORMAL WEIGHT GAIN 04/19/2013 MIIRAN NEALN, VERONIQUE R 780.4 DIZZINESS AND VERTIGO 04/19/2013 MIRIAN MEEHAN, VERONIQUE R 783.1 ABNORMAL WEIGHT GAIN 04/19/2013 MIRIAN NEALN, VERONIQUE R 780.4 DIZZINESS AND VERTIGO 04/19/2013 MIRIAN MEEHAN, VERONIQUE R 783.1 ABNORMAL WEIGHT GAIN 04/19/2013 MIRIAN MEEHAN VERONIQUE R 780.4 DIZZINESS AND VERTIGO 04/19/2013 MIRIAN MEEHAN VERONIQUE R 783.1 ABNORMAL WEIGHT GAIN 08/05/2013 JAELYN MORALES ANIMAL RIDE ATTENDANT Ot 454 .9 08/05/2013 JAELYN MORALES APRN Ot 729 .5 08/26/2013 JAELYN MORALES APRN Ot 599 .0 08/26/2013 JAELYN MORALES APRN Ot 787.02 10/22/2013 BERTHA RIOS APRN S 729.4 PLANTAR FASCIITIS 10/22/2013 TOSHIA LEON, ROLY K 729.4 PLANTAR FASCIITIS 10/22/2013 JARON VELA APRNINA R 729.4 PLANTAR FASCIITIS 10/22/2013 MIRIAN ANIMAL RIDE ATTENDANT, VERONIQUE R 729.4 PLANTAR FASCIITIS 10/22/2013 MIRIAN ANIMAL RIDE ATTENDANT, VERONIQUE R 729.4 PLANTAR FASCIITIS 10/22/2013 MIRIAN ANIMAL RIDE ATTENDANT, VERONIQUE R 729.4 PLANTAR FASCIITIS 02/03/2014 TOSHIA DOROLY K 008.8 INTESTINAL INFECTION DUE TO OTHER ORGANISM NOT ELSEWHERE CLASSIFIED 02/03/2014 POPE DO, ROLY K 787.01 NAUSEA WITH VOMITING 02/03/2014 POPE DO, ROLY K 789.00 ABDOMINAL PAIN UNSPECIFIED SITE 02/03/2014 MIRIAN ANIMAL RIDE ATTENDANT, VERONIQUE R 008.8 INTESTINAL INFECTION DUE TO OTHER ORGANISM NOT ELSEWHE RE CLASSIFIED 02/03/2014 MIRIAN ANIMAL RIDE ATTENDANT, VERONIQUE R 787.01 NAUSEA WITH VOMITING 02/03/2014 [...] ORGANISM NOT ELSEWHE RE CLASSIFIED 02/03/2014 MIRIAN ANIMAL RIDE ATTENDANT, VERONIQUE R 787.01 NAUSEA WITH VOMITING 02/03/2014 MIRIAN NEALN, VERONIQUE R 789.00 ABDOMINAL PAIN UNSPECIFIED SITE 02/03/2014 MIRIAN NEALN VERONIQUE R 008.8 INTESTINAL INFECTION DUE TO OTHER ORGANISM NOT ELSEWHE RE CLASSIFIED 02/03/2014 MIRIAN MEEHAN VERONIQUE R 787.01 NAUSEA WITH VOMITING 02/03/2014 MIRIAN NEALN VERONIQUE R 789.00 ABDOMINAL PAIN UNSPECIFIED SITE 03/04/2014 MIRIAN NEALN, VERONIQUE R 780.79 OTHER MALAISE AND FATIGUE 03/04/2014 MIRIAN ANIMAL RIDE ATTENDANT, VERONIQUE R 786.2 COUGH 03/04/2014 MIRIAN ANIMAL RIDE ATTENDANT, VERONIQUE R 780.79 OTHER MALAISE AND FATIGUE 03/04/2014 MIRIAN ANIMAL RIDE ATTENDANT, VERONIQUE R 786.2 COUGH 03/04/2014 MIRIAN ANIMAL RIDE ATTENDANT, VERONIQUE R 780.79 OTHER MALAISE AND FATIGUE 03/04/2014 MIRIAN NEALN, VERONIQUE R 786.2 COUGH 03/04/2014 MIRIAN ANIMAL RIDE ATTENDANT, VERONIQUE R 780.79 OTHER MALAISE AND FATIGUE 03/04/2014 MIRIAN ANIMAL RIDE ATTENDANT, VERONIQUE R 786.2 COUGH 05/01/2014 MIRIAN ANIMAL RIDE ATTENDANT, VERONIQUE R 723.1 CERVICALGIA 05/01/2014 MIRIAN ANIMAL RIDE ATTENDANT, VERONIQUE R 723.1 CERVICALGIA 05/01/2014 MIRIAN ANIMAL RIDE ATTENDANT, VERONIQUE R 723.1 CERVICALGIA 07/12/2014 Ot 717.3 07/12/2014 Ot 719.06 07/12/2014 JAELYN MORALES ANIMAL RIDE ATTENDANT Ot 724 .2 07/12/2014 JAELYN MORALES ANIMAL RIDE ATTENDANT Ot 724 .4 07/17/2014 MIRIAN NEALN, VERONIQUE [...] BOTH CERVIX AND UTER 03/31/2015 SARAHI ERVIN ANIMAL RIDE ATTENDANT Ot R10.11 05/20/2015 QAMAR GODOY ANIMAL RIDE ATTENDANT Ot N64.4 05/22/2015 SARAHI ERVIN ANIMAL RIDE ATTENDANT Ot R10.11 05/22/2015 QAMAR GODOY ANIMAL RIDE ATTENDANT Ot N64.4 06/01/2015 SARAHI ERVIN ANIMAL RIDE ATTENDANT Ot S89.92XA 06/01/2015 SARAHI ERVIN ANIMAL RIDE ATTENDANT Ot X58.XXXA 06/01/2015 SARAHI ERVIN ANIMAL RIDE ATTENDANT Ot Y99.8 09/10/2015 SARAHI ERVIN ANIMAL RIDE ATTENDANT Ot R10.11 RIGHT UPPER QUADRANT PAIN 09/10/2015 QAMAR GODOY ANIMAL RIDE ATTENDANT Ot N64.4 MASTODYNIA 09/10/2015 SARAHI ERVIN ANIMAL RIDE ATTENDANT Ot S89.92XA UNSPECIFIED INJURY OF LEFT LOWER LEG, IN 09/10/2015 SARAHI ERVIN ANIMAL RIDE ATTENDANT Ot X58.XXXA EXPOSURE TO OTHER SPECIFIED FACTORS, INI 09/10/2015 SARAHI ERVIN ANIMAL RIDE ATTENDANT Ot Y99.8 OTHER EXTERNAL CAUSE STATUS 09/10/2015 [...] DO Ot H92.02 OTALGIA, LEFT EAR 09/12/2015 JUSUTS LIN DO Ot J01.90 ACUTE SINUSITIS, UNSPECIFIED 09/12/2015 JUSTUS LIN DO Ot J4 0 BRONCHITIS, NOT SPECIFIED ACUTE OR CH 09/12/2015 JUSTUS LIN DO Ot M79.601 PAIN IN RIGHT ARM 11/19/2015 SARAHI ERVIN ANIMAL RIDE ATTENDANT Ot R10.11 RIGHT UPPER QUADRANT PAIN 11/23/2015 SARAHI ERVIN Anabel ANIMAL RIDE ATTENDANT Ot M25.562 PAIN IN LEFT KNEE 11/23/2015 SARAHI ERVIN Anabel ANIMAL RIDE ATTENDANT Ot 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] 11/25/2015 SARAHI ERVIN R ANIMAL RIDE ATTENDANT Ot M25.562 PAIN IN LEFT KNEE 11/29/2015 ARCADIO SARAHI Anabel ANIMAL RIDE ATTENDANT Ot M25.562 PAIN IN LEFT KNEE 03/08/2016 ARCADIO SARAHI Little ANIMAL RIDE ATTENDANT Ot R10.11 RIGHT UPPER QUADRANT PAIN 03/08/2016 SARAHI ERVIN R ANIMAL RIDE ATTENDANT Ot M25.562 PAIN IN LEFT KNEE 03/08/2016 ARCADIO SARAHI Anabel ANIMAL RIDE ATTENDANT Ot M25.562 PAIN IN LEFT KNEE 03/08/2016 ARCADIO SARAHI Anabel ANIMAL RIDE ATTENDANT Ot 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] 03/08/2016 ADILIA RAHMAN Ot J02.9 ACUTE PHARYNGITIS, UNSPECIFIED 03/08/2016 ADILIA RAHMAN Ot J20.9 ACUTE BRONCHITIS, UNSPECIFIED 03/08/2016 ADILIA RAHMAN Ot R11.2 NAUSEA WITH VOMITING, UNSPECIFIED 03/08/2016 ADILIA RAHMAN Ot R19.7 DIARRHEA, UNSPECIFIED 03/08/2016 SARAHI ERVIN ANIMAL RIDE ATTENDANT Ot R10.11 RIGHT UPPER QUADRANT PAIN 03/08/2016 QAMAR GODOY ANIMAL RIDE ATTENDANT Ot N64.4 MASTODYNIA 03/08/2016 SARAHI ERVIN ANIMAL RIDE ATTENDANT Ot S89.92XA UNSPECIFIED INJURY OF LEFT LOWER LEG, IN 03/08/2016 SARAHI ERVIN ANIMAL RIDE ATTENDANT Ot X58.XXXA EXPOSURE TO OTHER SPECIFIED FACTORS, INI 03/08/2016 SARAHI ERVIN ANIMAL RIDE ATTENDANT Ot Y99.8 OTHER EXTERNAL CAUSE STATUS 03/09/2016 ADILIA RAHMAN Ot J02.9 ACUTE PHARYNGITIS, UNSPECIFIED 03/09/2016 ADILIA RAHMAN Ot J20.9 ACUTE BRONCHITIS, UNSPECIFIED 03/09/2016 ADILIA RAHMAN L Ot R11.2 NAUSEA WITH VOMITING, UNSPECIFIED 03/09/2016 ADILIA RAHMAN Ot R19.7 DIARRHEA, UNSPECIFIED 04/21/2016 SARAHI ERVIN ANIMAL RIDE ATTENDANT Ot R10.11 RIGHT UPPER QUADRANT PAIN 04/21/2016 QAMAR GODOY ANIMAL RIDE ATTENDANT Ot N64.4 MASTODYNIA 04/21/2016 SARAHI ERVIN ANIMAL RIDE ATTENDANT Ot S89.92XA UNSPECIFIED INJURY OF LEFT LOWER LEG, IN 04/21/2016 SARAHI ERVIN ANIMAL RIDE ATTENDANT Ot X58.XXXA EXPOSURE TO OTHER SPECIFIED FACTORS, INI 04/21/2016 SARAHI ERVIN ANIMAL RIDE ATTENDANT Ot Y99.8 OTHER EXTERNAL CAUSE STATUS 04/21/2016 JAELYN MORALES ANIMAL RIDE ATTENDANT Ot E11 .9 TYPE 2 DIABETES MELLITUS WITHOUT COMPLIC 04/21/2016 JAELYN MORALES ANIMAL RIDE ATTENDANT Ot M54.41 LUMBAGO WITH SCIATICA, RIGHT SIDE 04/21/2016 JAELYN MORALES ANIMAL RIDE ATTENDANT Ot M54 .5 LOW BACK PAIN 04/22/2016 JAELYN MORALES ANIMAL RIDE ATTENDANT Ot E11 .9 TYPE 2 DIABETES MELLITUS WITHOUT COMPLIC 04/22/2016 JAELYN MORALES ANIMAL RIDE ATTENDANT Ot M54.41 LUMBAGO WITH SCIATICA, RIGHT SIDE 04/22/2016 JAELYN MORALES ANIMAL RIDE ATTENDANT Ot M54 .5 LOW BACK PAIN 04/27/2016 JAELYN MORALES ANIMAL RIDE ATTENDANT Ot E11 .9 TYPE 2 DIABETES MELLITUS WITHOUT COMPLIC 04/27/2016 JAELYN MORALES ANIMAL RIDE ATTENDANT Ot M54.41 LUMBAGO WITH SCIATICA, RIGHT SIDE 04/27/2016 JAELYN MORALES ANIMAL RIDE ATTENDANT Ot M54 .5 LOW BACK PAIN 04/29/2016 JAELYN MORALES ANIMAL RIDE ATTENDANT Ot E11 .9 TYPE 2 DIABETES MELLITUS WITHOUT COMPLIC 04/29/2016 JAELYN MORALES ANIMAL RIDE ATTENDANT Ot M54.41 LUMBAGO WITH SCIATICA, RIGHT SIDE 04/29/2016 JAELYN MORALES ANIMAL RIDE ATTENDANT Ot M54 .5 LOW BACK PAIN 07/21/2016 SARAHI ERVIN ANIMAL RIDE ATTENDANT Ot R10.11 RIGHT UPPER QUADRANT PAIN 07/21/2016 QAMAR GODOY ANIMAL RIDE ATTENDANT Ot N64.4 MASTODYNIA 07/21/2016 SARAHI ERVIN ANIMAL RIDE ATTENDANT Ot S89.92XA UNSPECIFIED INJURY OF LEFT LOWER LEG, IN 07/21/2016 SAARHI ERVIN ANIMAL RIDE ATTENDANT Ot X58.XXXA EXPOSURE TO OTHER SPECIFIED FACTORS, INI 07/21/2016 SARAHI ERVIN ANIMAL RIDE ATTENDANT Ot Y99.8 OTHER EXTERNAL CAUSE STATUS 07/24/2016 SARAHI ERVIN ANIMAL RIDE ATTENDANT Ot R10.11 RIGHT UPPER QUADRANT PAIN 07/24/2016 DBCONCHITAQAMAR TAVAREZ ANIMAL RIDE ATTENDANT Ot N64.4 MASTODYNIA 07/24/2016 SARAHI ERVIN ANIMAL RIDE ATTENDANT Ot S89.92XA UNSPECIFIED INJURY OF LEFT LOWER LEG, IN 07/24/2016 SARAHI ERVIN ANIMAL RIDE ATTENDANT Ot X58.XXXA EXPOSURE TO OTHER SPECIFIED FACTORS, INI 07/24/2016 SARAHI ERVIN ANIMAL RIDE ATTENDANT Ot Y99.8 OTHER EXTERNAL CAUSE STATUS 07/24/2016 [...] 2 DIABETES MELLITUS WITHOUT COMPLIC 07/26/2016 NINO IWNKLER MD T Ot N83.292 OTHER OVARIAN CYST, LEFT SIDE 07/26/2016 NINO WINKLER MD T Ot R10.11 RIGHT UPPER QUADRANT PAIN 07/26/2016 CATHI LEMUS, NINO Sahni Ot R11.2 NAUSEA WITH VOMITING, UNSPECIFIED 07/28/2016 LORENZO LEONHERSON S Ot D27.1 BENIGN NEOPLASM OF LEFT OVARY 07/28/2016 LORENZO LEONHERSON S Ot E66.9 OBESITY, UNSPECIFIED 07/28/2016 LORENZO LEONHERSON S Ot K81.1 CHRONIC CHOLECYSTITIS 07/28/2016 LORENZO LEONHERSON S Ot N83.02 FOLLICULAR CYST OF LEFT OVARY 07/28/2016 LORENZO LEONHERSON S Ot 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 07/28/2016 LORENZO LEONHERSON S Ot Z68.41 BODY MASS INDEX (BMI) 40.0-44.9, ADULT 07/30/2016 NINO WINKLER MD Ot G89.18 OTHER ACUTE POSTPROCEDURAL PAIN 07/30/2016 NINO WINKLER MD Ot R05 COUGH 07/30/2016 NINO WINKLRE MD Ot R06.02 SHORTNESS OF BREATH 07/30/2016 NINO WINKLER MD Ot Z79.899 OTHER ALF (CURRENT) DRUG THERAPY 07/30/2016 NINO WINKLER MD Ot Z90.49 ACQUIRED ABSENCE OF OTHER SPECIFIED PART 07/30/2016 NINO IWNKLER MD Ot Z90.721 ACQUIRED ABSENCE OF OVARIES, [...] INDEX (BMI) 40.0-44.9, ADULT 09/07/2016 SARAHI ERVIN ANIMAL RIDE ATTENDANT Ot R10.11 RIGHT UPPER QUADRANT PAIN 09/07/2016 QAMAR GODOY ANIMAL RIDE ATTENDANT Ot N64.4 MASTODYNIA 09/07/2016 SARAHI ERVIN ANIMAL RIDE ATTENDANT Ot S89.92XA UNSPECIFIED INJURY OF LEFT LOWER LEG, IN 09/07/2016 SARAHI ERVIN ANIMAL RIDE ATTENDANT Ot X58.XXXA EXPOSURE TO OTHER SPECIFIED FACTORS, INI 09/07/2016 SARAHI ERVIN ANIMAL RIDE ATTENDANT Ot Y99.8 OTHER EXTERNAL CAUSE STATUS 09/07/2016 WATSON PAINTER MD Ot R10.11 RIGHT UPPER QUADRANT PAIN 09/07/2016 WATSON PAINTER MD Ot R10.32 LEFT LOWER QUADRANT PAIN 09/07/2016 WATSON PAINTER MD Ot R10.31 RIGHT LOWER QUADRANT PAIN 09/07/2016 KIDO MD, TAKAAKI Ot R10.32 LEFT LOWER QUADRANT PAIN 09/21/2016 JDLYSSA NAPOLES Madina ANIMAL RIDE ATTENDANT Ot K21.9 GASTRO-ESOPHAGEAL REFLUX DISEASE WITHOUT 11/17/2016 SARAHI ERVIN ANIMAL RIDE ATTENDANT Ot R10.11 RIGHT UPPER QUADRANT PAIN 11/17/2016 QAMAR GODOY ANIMAL RIDE ATTENDANT Ot N64.4 MASTODYNIA 11/17/2016 SARAHI ERVIN ANIMAL RIDE ATTENDANT Ot S89.92XA UNSPECIFIED INJURY OF LEFT LOWER LEG, IN 11/17/2016 SARAHI ERVIN ANIMAL RIDE ATTENDANT Ot X58.XXXA EXPOSURE TO OTHER SPECIFIED FACTORS, INI 11/17/2016 SARAHI ERVIN ANIMAL RIDE ATTENDANT Ot Y99.8 OTHER EXTERNAL CAUSE STATUS 11/17/2016 WATSON PAINTER MD Ot R10.11 RIGHT UPPER QUADRANT PAIN 11/17/2016 WATSON PAINTER MD Ot R10.32 LEFT LOWER QUADRANT PAIN 11/17/2016 WATSON PAINTER MD Ot R10.31 RIGHT LOWER QUADRANT PAIN 11/17/2016 WATSON PAINTER MD Ot R10.32 LEFT LOWER QUADRANT PAIN 11/17/2016 JDMAREMEGHAN Painter ANIMAL RIDE ATTENDANT Ot K21.9 GASTRO-ESOPHAGEAL REFLUX DISEASE WITHOUT 11/17/2016 [...] RIGHT UPPER QUADRANT PAIN 06/20/2017 QAMAR GODOY ANIMAL RIDE ATTENDANT Ot N64.4 MASTODYNIA 06/20/2017 SARAHI ERVIN ANIMAL RIDE ATTENDANT Ot S89.92XA UNSPECIFIED INJURY OF LEFT LOWER LEG, IN 06/20/2017 SARAHI ERVIN ANIMAL RIDE ATTENDANT Ot X58.XXXA EXPOSURE TO OTHER SPECIFIED FACTORS, INI 06/20/2017 SARAHI ERVIN ANIMAL RIDE ATTENDANT Ot Y99.8 OTHER EXTERNAL CAUSE STATUS 06/20/2017 WATSON PAINTER MD Ot R10.11 RIGHT UPPER QUADRANT PAIN 06/20/2017 WATSON PAINTER MD Ot R10.32 LEFT LOWER QUADRANT PAIN 06/20/2017 WATSON PAINTER MD Ot R10.31 RIGHT LOWER QUADRANT PAIN 06/20/2017 WATSON PAINTER MD Ot R10.32 LEFT LOWER QUADRANT PAIN 06/20/2017 LYSSA MILES ANIMAL RIDE ATTENDANT Ot K21.9 GASTRO-ESOPHAGEAL REFLUX DISEASE WITHOUT 06/20/2017 [...] RIGHT UPPER QUADRANT PAIN 07/26/2017 QAMAR GODOY ANIMAL RIDE ATTENDANT Ot N64.4 MASTODYNIA 07/26/2017 ERVINSARAHI Gaspar ANIMAL RIDE ATTENDANT Ot S89.92XA UNSPECIFIED INJURY OF LEFT LOWER LEG, IN 07/26/2017 SARAHI ERVIN ANIMAL RIDE ATTENDANT Ot X58.XXXA EXPOSURE TO OTHER SPECIFIED FACTORS, INI 07/26/2017 SARAHI ERVIN ANIMAL RIDE ATTENDANT Ot Y99.8 OTHER EXTERNAL CAUSE STATUS 07/26/2017 WATSON PAINTER MD Ot R10.11 RIGHT UPPER QUADRANT PAIN 07/26/2017 WATSON PAINTER MD Ot R10.32 LEFT LOWER QUADRANT PAIN 07/26/2017 WATSON PAINTER MD Ot R10.31 RIGHT LOWER QUADRANT PAIN 07/26/2017 WATSON PAINTER MD Ot R10.32 LEFT LOWER QUADRANT PAIN 07/26/2017 JDLYSSA ANIMAL RIDE ATTENDANT Ot K21.9 GASTRO-ESOPHAGEAL REFLUX DISEASE WITHOUT 07/26/2017 [...] APRN Ot J10 .1 FLU DUE TO [facility] IDENT INFLUENZA VIRUS W O [...] Z98.84 BARIATRIC SURGERY STATUS 06/11/2018 JAELYN MORALES ANIMAL RIDE ATTENDANT Ot Z98.890 OTHER SPECIFIED POSTPROCEDURAL STATES 06/18/2018 TESHAАННА EILEEN Ot E11.9 TYPE 2 DIABETES MELLITUS WITHOUT COMPLIC 06/18/2018 TESHAАННАSHANTAIS Ot E78.00 PURE HYPERCHOLESTEROLEMIA, UNSPECIFIED 06/18/2018 SARAH EILEEN Ot F41.9 ANXIETY DISORDER, UNSPECIFIED 06/18/2018 SHANTA SMITHIS Ot K58.9 IRRITABLE BOWEL SYNDROME WITHOUT DIARRHE 06/18/2018 SHANTA SMITHIS Ot M54.2 CERVICALGIA 06/18/2018 SHANTA SMITHIS Ot S16.1XXA STRAIN OF MUSCLE, FASCIA AND TENDON AT N 06/18/2018 EILEEN SMITH Ot X58.XXXA EXPOSURE TO OTHER SPECIFIED FACTORS, [...] HISTORY OF OTHER DISEASES OF TH 06/20/2018 IELEEN SMITH Ot Z87.440 PERSONAL HISTORY OF URINARY [...] TUBAL LIGATION STATUS 02/22/2019 ERVIN, SARAHI R ANIMAL RIDE ATTENDANT Ot R10.11 RIGHT UPPER QUADRANT PAIN 02/22/2019 QAMAR GODOY ANIMAL RIDE ATTENDANT Ot N64.4 MASTODYNIA 02/22/2019 ERVINSARAHI Gaspar Anabel ANIMAL RIDE ATTENDANT Ot S89.92XA UNSPECIFIED INJURY OF LEFT LOWER LEG, IN 02/22/2019 ERVINSARAHI Gaspar Anabel ANIMAL RIDE ATTENDANT Ot X58.XXXA EXPOSURE TO OTHER SPECIFIED FACTORS, INI 02/22/2019 ERVINSARAHI Gaspar Anabel ANIMAL RIDE ATTENDANT Ot Y99.8 OTHER EXTERNAL CAUSE STATUS 02/22/2019 WATSON PAINTER MD Ot R10.11 RIGHT UPPER QUADRANT PAIN 02/22/2019 WATSON PAINTER MD Ot R10.32 LEFT LOWER QUADRANT PAIN 02/22/2019 WATSON PAINTER MD Ot R10.31 RIGHT LOWER QUADRANT PAIN 02/22/2019 WATSON PAINTER MD Ot R10.32 LEFT LOWER QUADRANT PAIN 02/22/2019 LYSSA MILES ANIMAL RIDE ATTENDANT Ot K21.9 GASTRO-ESOPHAGEAL REFLUX DISEASE WITHOUT 02/22/2019 WATSON PAINTER MD Ot E66.01 MORBID (SEVERE) OBESITY DUE TO EXCESS CA 02/22/2019 WATSON PAINTER MD Ot Z01.81 2 ENCOUNTER FOR PREPROCEDURAL LABORATORY E 02/23/2019 JAELYN MORALES APRN Ot E11 .9 TYPE 2 DIABETES MELLITUS WITHOUT COMPLIC 02/23/2019 JAELYN MORALES APRN Ot E78.00 PURE HYPERCHOLESTEROLEMIA, UNSPECIFIED 02/23/2019 JAELYN MORALES APRN Ot F41 .9 ANXIETY DISORDER, UNSPECIFIED 02/23/2019 JAELYN MORALES APRN Ot K58 .9 IRRITABLE BOWEL SYNDROME WITHOUT DIARRHE 02/23/2019 JAELYN MORALES APRN Ot R21 RASH AND OTHER NONSPECIFIC SKIN ERUPTION 02/23/2019 JAELYN MORALES APRN Ot Z87.440 PERSONAL HISTORY OF URINARY (TRACT) INFE 02/23/2019 JAELYN MORALES APRN Ot Z87.442 PERSONAL HISTORY OF URINARY CALCULI 02/23/2019 JAELYN MORALES APRN Ot Z90.49 ACQUIRED ABSENCE OF OTHER SPECIFIED PART 02/23/2019 JAELYN MORALES APRN Ot Z90.710 ACQUIRED ABSENCE OF BOTH CERVIX AND UTER 02/23/2019 JAELYN MORALES APRN Ot Z98.51 TUBAL LIGATION STATUS 02/25/2019 NINO WINKLER MD Ot E11.9 TYPE 2 DIABETES MELLITUS WITHOUT COMPLIC 02/25/2019 NINO WINKLER MD Ot E78.00 PURE HYPERCHOLESTEROLEMIA, UNSPECIFIED 02/25/2019 NINO WINKLER MD, Ot F41.9 ANXIETY DISORDER, UNSPECIFIED 02/25/2019 NINO WINKLER MD Ot K58.9 IRRITABLE BOWEL SYNDROME WITHOUT DIARRHE 02/25/2019 NINO WINKLER MD Ot L03.113 CELLULITIS OF RIGHT UPPER LIMB 02/25/2019 NINO WINKLER MD Ot L23.7 ALLERGIC CONTACT DERMATITIS DUE TO PLANT 02/25/2019 NINO WINKLER MD Ot R21 RASH AND OTHER NONSPECIFIC SKIN ERUPTION 02/25/2019 NINO WINKLER MD Ot Z87.440 PERSONAL HISTORY OF URINARY (TRACT) INFE 02/25/2019 NINO WINKLER MD Ot Z87.442 PERSONAL HISTORY OF URINARY CALCULI 02/25/2019 NINO WINKLER MD Ot Z90.49 ACQUIRED ABSENCE OF OTHER SPECIFIED PART 02/25/2019 NINO WINKLER MD Ot Z90.710 ACQUIRED ABSENCE OF BOTH CERVIX AND UTER 02/25/2019 NINO WINKLER MD Ot Z98.51 TUBAL LIGATION STATUS 02/28/2019 JAELYN [...] MORALES APRN Ot Z98.51 TUBAL LIGATION STATUS 03/22/2019 KE AGUILARP Ot E11.9 TYPE 2 DIABETES MELLITUS WITHOUT COMPLIC 03/22/2019 KE AGUILARP Ot E78.00 PURE HYPERCHOLESTEROLEMIA, UNSPECIFIED 03/22/2019 KE AGUILARP Ot F41.9 ANXIETY DISORDER, UNSPECIFIED 03/22/2019 KE AGUILARP Ot K58.9 IRRITABLE BOWEL SYNDROME WITHOUT DIARRHE 03/22/2019 KE AGUILARP Ot M25.521 PAIN IN RIGHT ELBOW 03/22/2019 KE AGUILARP Ot W00.9XXA UNSPECIFIED FALL DUE TO ICE AND SNOW, IN 03/22/2019 KE AGUILARP Ot Z87.440 PERSONAL HISTORY OF URINARY (TRACT) INFE 03/22/2019 KE AGUILARP Ot Z87.442 PERSONAL HISTORY OF URINARY CALCULI 03/22/2019 KE AGUILARP Ot Z90.49 ACQUIRED ABSENCE OF OTHER SPECIFIED PART 03/22/2019 KE AGUILARP Ot Z90.710 ACQUIRED ABSENCE OF BOTH CERVIX AND UTER 03/22/2019 KE AGUILARP Ot Z98.51 TUBAL LIGATION STATUS Procedures Code Description [place] [address] XRAY KNEE RIGHT 1 OR 2 VIEWS 06/20/2012 SONIA TORRES 06/20/2012 77121 XRAY FOOT LEFT 2 VIEWS 08/24/2012 ORTHOPEDI SONIA HOWE 08/24/201258233 JOIN T INJECTION- INTERMEDIATE JOINT 11/15/2012 J1040 DEPO MEDROL 80 MG INJ 11/15/2012 49831 ROUT INE VENIPUNCTURE 04/22/2013 43737 CBC 04/22/2013 [id number] GF R CALC (RESULT ONLY) 04/22/2013 96460 CMP 04/22/2013 90639 LIPI D PANEL 04/22/2013 92566 TSH 04/22/201332359 JOIN T INJECTION - SMALL JOINT 09/19/2013 J1030 DEPO MEDROL 40 MG INJ 09/19/2013 71701 ROUT INE VENIPUNCTURE 03/04/2014 25061 MYCO PLASMA ANTIBODY 03/04/2014 51417 UA W / CULTURE IF INDICATED 03/04/2014 48930 MONO TEST (IN-HOUSE) 03/04/2014 13226 CBC 03/04/2014 85063 XRAY CERVICAL SPINE, 2 OR 3 VIEWS 07/09/2014 83817 XRAY LUMBAR SPINE 2 OR 3 VIEWS 07/17/2014 [id number] EX CISION OF STOMACH, PERCUTANEOUS ENDOSC 11/17/2016 [...] INFLUENZA A AND B ANTIGENS BY [place] [facility] Comprehensive metabolic panel - 03/08/16 [...] YELLOW NRG Urine clarity determination SLIGHTLY CLOUDY NR Urine pH measurement by test strip 6 [...] ABO+Rh group AP NRG Transfusion band number [id number] NRG Blood group antibody screen NEGATIVE NR G [...] culture - 10/05/17 22:57 Bacterial urine culture [id number] NRG COLONY COUNT >100,000/ML NRG FTX;REPORTABLE RML [...] CALLED TO JAELYN IN ED AT 2042 NR FLU RESULT POSITIVE FOR INFLUENZA B ANT IGEN, NEG FOR A ANTIGEN, BY [place] [facility] Comprehensive metabolic panel - 06/07/18 20:20 Serum [...] Status Pt. Type Provider Facility Loc./Unit Complaint [id number] 07/17/2014 09:33:00 07/17/2014 23:59: 59 CLS Outpatient VERONIQUE VELA APRN [id number] 07/09/2014 15:13:00 07/09/2014 23:59: 59 CLS Outpatient VERONIQUE VLEA APRN [id number] 05/01/2014 09:18:00 05/01/2014 23:59: 59 CLS Outpatient VERONIQUE VELA APRN [id number] 03/04/2014 13:51:00 03/04/2014 23:59: 59 CLS Outpatient VERONIQUE VELA APRN [id number] 02/03/2014 10:43:00 02/03/2014 23:59: 59 CLS Outpatient ROLY POPE DO [id number] 10/22/2013 10:48:00 10/22/2013 23:59: 59 CLS Outpatient BERTHA RIOS APRN [id number] 09/19/2013 11:44:00 09/19/2013 23:59: 59 CLS Outpatient ROLY POPE DO [id number] 04/22/2013 08:47:00 04/22/2013 23:59: 59 CLS Outpatient VERONIQUE VELA APRN [id number] 06/20/2012 08:41:00 06/20/2012 23:59: 59 CLS Outpatient ADELINE BASSETT APRN [id number] 04/19/2010 00:00:00 04/19/2010 23:59: 59 CLS Outpatient [id number] 11/15/2012 14:41:00 Document Registration [id number] 08/24/2012 10:24:00 Document Registration [id number] 03/22/2019 21:00:00 23:18:00 DIS Emergency KE AGUILAR [facility] ER INJURED RT ARM [id number] 02/23/2019 13:37:00 15:25:00 DIS Emergency JAELYN MORALES APRN [facility] ER RASH ALL OVER [id number] 02/21/2019 23:04:00 23:57:00 DIS Emergency CATHI LEMUS, NINO Sahni [facility] ER RASH ON BOTH AR MS,LIGHT HEADED, NAUSEA, [id number] 06/18/2018 19:00:00 20:47:00 DIS Emergency EILEEN SMITH [facility] ER NECK PAIN [id number] 06/07/2018 19:34:00 20:54:00 DIS Emergency JAELYN MORALES APRN [facility] ER STOMACH CRAMPING,DIZZY [id number] 02/19/2018 17:39:00 21:09:00 DIS Emergency JAELYN MORALES APRN [facility] ER POST TUMMY TUCK/ABD [place] N/VOMITING [id number] 01/03/2018 13:30:00 23:59:59 CLS Preadmit SARAHI ERVIN ANIMAL RIDE ATTENDANT [facility] REHAB L SHOULDER PAIN [id number] 10/05/2017 21:38:00 01:35:00 DIS Emergency NINO WINKLER MD [facility] ER L SIDE ABD PAIN GOING TO L SHOULDER/BACK [id number] 07/26/2017 11:13:00 14:40:00 DIS Outpatient WATSON PAINTER MD [facility] ENDO SCREENING [id number] 07/24/2017 05:35:00 04/30/2 018 13:32:00 DIS Outpatient WATSON PAINTER MD [facility] PREOP COLONOSCOPY [id number] 06/20/2017 00:12:00 018 01:25:00 DIS Emergency JEREMY MAC MD [facility] ER MIDDLE LOWER BACK LOC DANYELLE UP,ABD PAIN PELVIC P [id number] 11/17/2016 11:45:00 017 12:50:00 DIS Inpatient WATSON PAINTER MD, V [facility] 4TH MORBID OBESITY [id number] 11/10/2016 11:38:00 017 23:59:59 CLS Outpatient WATSON PAINTER MD [facility] PREOP MORBID OBESITY [id number] 09/07/2016 09:49:00 017 23:59:59 CLS Outpatient LYSSA MILES APRN [facility] RAD REFLUX [id number] 07/30/2016 18:13:00 017 22:03:00 DIS Emergency NINO WINKLER MD [facility] ER POST OP/SOA [id number] 07/28/2016 09:16:00 017 16:00:00 DIS Outpatient HERSON VENTURA DO [facility] SDC LEFT ABDOMINAL MASS [id number] 07/24/2016 13:54:00 017 18:01:00 DIS Emergency NINO WINKLER MD [facility] ER GALLBLADDER/SAIMA K PAIN [id number] 07/22/2016 08:52:00 017 23:59:59 CLS Outpatient WATSON PAINTER MD [facility] CARD ABD PAIN [id number] 07/21/2016 13:36:00 017 23:59:59 CLS Outpatient WATSON PAINTER MD [facility] RAD LLQ PAIN [id number] 04/21/2016 11:45:00 017 14:50:00 DIS Emergency JAELYN MORALES ANIMAL RIDE ATTENDANT [facility] ER RIGHT LOWER BACK PAIN [id number] 03/08/2016 17:20:00 016 20:33:00 DIS Emergency ADILIA RAHMAN [facility] ER SORE THROAT, CHILLS, B ACK PAIN [id number] 11/23/2015 15:57:00 016 23:59:59 CLS Outpatient SARAHI ERVIN ANIMAL RIDE ATTENDANT [facility] RAD PAIN IN LT KNEE [id number]

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
[2019-06-25] MEDS ORDERED: CYCL10TA9 PO (10:16)
[2019-06-25 10:27] VITALS: BP 102/55
== END 2019-06-25 10:27 | disposition home or self-care (01) ==
LOC: EDUNIT# 08:25 → ER 08:28
DX: S06.0X9A Concussion with loss of consciousness of unspecified duration, initial encounter (principal); S62.175A Nondisplaced fracture of trapezium [larger multangular], left wrist, initial encounter for closed fracture; S16.1XXA Strain of muscle, fascia and tendon at neck level, initial encounter; E78.00 Pure hypercholesterolemia, unspecified; K52.9 Noninfective gastroenteritis and colitis, unspecified; M19.91 Primary osteoarthritis, unspecified site; E11.9 Type 2 diabetes mellitus without complications; F41.9 Anxiety disorder, unspecified; V86.59XA Driver of other special all-terrain or other off-road motor vehicle injured in nontraffic accident, initial encounter
CPT/HCPCS: 29125; 73130

== ENCOUNTER 2019-09-29 11:40 | Emergency (ER) | payer BC ==
[~2019-09-29] VITALS: Ht 157 cm; Wt 77.5 kg
--- OUTSIDE RECORDS SUMMARY | 2019-09-29 11:46 | XMS REPORT ---
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 Active [id number] Problem Anxiety state, unspecified F41.1 Act flores [id number] Problem Vasomotor symptoms due to menopause N95.1 Active [id number] ALLERGIES No Information ENCOUNTERS Encounter Location Date Diagnosis [facility] [address] [id number] Jun, Dental examination Z01.20 an d Caries K02.9 [facility] [address] [id number] Jun, Dental examination Z01.20 [facility] [address] [address] 18 Apr, 2019 Lateral epicondylitis of rig ht elbow M77.11 [facility] [address] [place] [id number] [address] [place] [address] Mar, Lateral epicondylitis of rig ht elbow M77.11 [facility] [address] [id number] [address] [place] [address] 15 Mar, 2019 Lip lesion K13.0 [facility] [address] [id number] [address] [place] [address] 03 Mar, 2019 Lateral epicondylitis of rig ht elbow M77.11 [facility] [id number] [place] [address] Feb, Dermatitis L30.9 and Pruritic dermatitis L29.[address] [address] Jun, Left hip pain M25.552 [facility] [address] [address] Mar, Fever R50.9 and Acute nasoph aryngitis J00 [facility] [address] [address] Mar, [address] [address] Nov, Muscle ache M79.[address] [address] Sep, Dysuria R30.[address] [address] Aug, Vasomotor symptoms due to me nopause N95.1 ; Overweight (BMI 25.0- 29.9) E66.3 and Varicosities I86.[address] [address] Jun, [facility] [address] [address] Apr, Cough R05 and Influenza J11. [address] [address] Apr, Screening breast examination Z12.31 ; Breast tenderness in female N64.4 ; Other obesity due to excess calories E66.09 and Body mass index (BMI) of 31.0-31.9 in adult Z68.31 [facility] [address] [address] Apr, Gastroenteritis K52.9 [facility] [address] [id number] [address] [place] [id number] Mar, Dental examination Z01.20 an d Dental caries K02.9 [facility] [address] [facility] [id number] [address] [place] [address] Feb, Gum abscess K05.219 [facility] [address] [facility] [id number] [address] [place] [address] Feb, [facility] [address] [facility] [id number] [address] [place] [address] Dec, Varicosities I86.8 [facility] [address] [facility] [id number] [address] [place] [address] Sep, [facility] [address] [facility] [id number] [address] [place] [address] Sep, [facility] [address] [place] [address] [id number] [address] [place] [address] Sep, Anxiety state, unspecified F 41.1 [facility] [address] [address] [id number] [address] [place] [address] Aug, Unspecified mood [affective] disorder F39 and Eating disorder, unspecified F50.9 [facility] [address] [id number] [address] [place] [address] Aug, Anxiety state, unspecified F 41.1 [facility] [address] [facility] [id number] [address] [place] [address] Jun, [facility] [address] [id number] [address] [place] [address] Jun, Fatigue, unspecified type R5 3.83 [facility] [address] [facility] [id number] [address] [place] [address] 07 Jun, 2016 Abdominal pain, left lower q uadrant R10.32 ; Candidiasis, cutaneous B37.2 ; Fatigue, unspecified type R53.83 ; Morbid (severe) obesity due to excess calories E66.01 ; General medical exam Z00.00 and Diverticulitis of large intestine without perforation or abscess without bleeding K57.32 [facility] [address] [address] 02 May, 2016 Left wrist pain M25.532 and Left wrist sprain, initial encounter S63.502A [facility] [address] [address] 02 May, 2016 General medical exam Z00.00 [facility] [address] [address] 12 Mar, 2016 Encounter for routine adult health examination with abnormal findings Z00.01 ; Body mass index (BMI) of 40.0-44.9 in adult Z68.41 ; Morbid (severe) obesity due to excess calories E66.01 ; History of IBS Z87.19 and Family history of colon cancer requiring screening colonoscopy Z80.0 [place] [address] [address] Oct, [place] [address] [address] Oct, Other acute postprocedural p ain G89.18 ; Pain in left knee M25.562 ; Family history of colon cancer requiring screening colonoscopy Z80.0 and Hyperpigmentation L81.9 [place] [address] [address] May, [place] [address] [address] May, Left knee injury S89.92XA [place] [address] [address] Apr, [place] [address] [address] Apr, Left knee injury S89.92XA an d Varicosities I86.[address] [address] Mar, [facility] [address] [facility] [id number] [address] [place] [address] Mar, Acute pain of left knee M25. 562 and Strain of left knee, initial encounter S86.912A [facility] [address] [place] [id number] [address] [place] [address] Mar, Lower abdominal tenderness R 10.819 and Breast tenderness N64.4 [facility] [address] [place] [id number] [address] [place] [address] Feb, [place] [address] [address] Feb, Well woman exam Z01.419 ; Va [...] and Complex cyst of left ovary N83.29 [place] [address] [place] [id number] [address] [place] [address] 16 Feb, 2015 Abdominal pain R10.9 and Pel renetta pain R10.2 [place] [address] [place] [id number] [address] [place] [address] Feb, [place] [address] [place] [id number] [address] [place] [address] Feb, [place] [address] [place] [id number] [address] [place] [address] Feb, General medical exam Z00.00 ; Right upper quadrant pain R10.11 and History of borderline diabetes mellitus Z87.898 [facility] [address] [id number] [address] [place] [address] Feb, Right upper quadrant pain R1 0.11 [facility] [address] [id number] [address] [place] [address], [place] [address] Jun, Lumbago 724.2 [facility] [address] [id number] [address] [place] [address], [place] [address] 14 Jun, 2014 [facility] [address] [id number] [address] [place] [address], [place] [address] Jun, [facility] [address] [id number] [address] [place] [address], [place] [address] May, [facility] [address] [id number] [address] [place] [address], [place] [address] May, [facility] [address] [id number] [address] [place] [address], [place] [address] Apr, [facility] [address] [id number] [address] [place] [address] Apr, [facility] [address] [id number] [address] [place] [address], [place] [address] Mar, [facility] [address] [id number] [address] [place] [address] Mar, [facility] [address] [id number] [address] [place] [address] Mar, [facility] [address] [id number] [address] [place] [address] Mar, [facility] [address] [id number] [address] [place] [address], [place] [address] Mar, [facility] [address] [id number] [address] [place] [address] Mar, [facility] [address] [id number] [address] [place] [address], [place] [address] Mar, [facility] [address] [id number] [address] [place] [address], [place] [address] Feb, [facility] [address] [id number] [address] [place] [address], [place] [address] Feb, [facility] [address] [id number] [address] [place] [address], [place] [address] Feb, [facility] [address] [id number] [address] [place] [address], [place] [address] Feb, [facility] [address] [id number] [address] [place] [address], [place] [address] Feb, [facility] [address] [id number] [address] [place] [address], [place] [address] Jan, [facility] [address] [id number] [address] [place] [address], [place] [address] Jan, [facility] [address] [id number] [address] [place] [address], [place] [address] Oct, [facility] [address] [id number] [address] [place] [address], [place] [address] Oct, [facility] [address] [id number] [address] [place] [address], [place] [address] Sep, [facility] [address] [id number] [address] [place] [address], [place] [address] Sep, [facility] [address] [id number] [address] [place] [address], [place] [address] Aug, [facility] [address] [id number] [address] [place] [address], [place] [address] Aug, [facility] [address] [id number] [address] [place] [address], [place] [address] Aug, [facility] [address] [id number] [address] [place] [address], [place] [address] Apr, [facility] [address] [id number] [address] [place] [address], [place] [address] Apr, [facility] [address] [id number] [address] [place] [address], [place] [address] Apr, [facility] [address] [id number] [address] [place] [address], [place] [address] Apr, [facility] [address] [id number] [address] [place] [address], [place] [address] Apr, [facility] [address] [id number] [address] [place] [address], [place] [address] Mar, [facility] [address] [id number] [address] [place] [address], [place] [address] Mar, [facility] [address] [id number] [address] [place] [address], [place] [address] Mar, [facility] [address] [id number] [address] [place] [address], [place] [address] Mar, [facility] [address] [id number] [address] [place] [address], [place] [address] Mar, [facility] [address] [id number] [address] [place] [address], [place] [address] Mar, [facility] [address] [id number] [address] [place] [address], [place] [address] Mar, [facility] [address] [id number] [address] [place] [address], [place] [address] Mar, [facility] [address] [id number] [address] [place] [address], [place] [address] Mar, [facility] [address] [id number] [address] [place] [address], [place] [address] Oct, [facility] [address] [id number] [address] [place] [address], [place] [address] July, [facility] [address] [id number] [address] [place] [address], [place] [address] July, [facility] [address] [id number] [address] [place] [address] Jun, [facility] [address] [facility] [id number] [address] [place] [address] May, [facility] [address] [facility] [id number] [address] [place] [address] Feb, [facility] [address] [facility] [id number] [address] [place] [address] Feb, [facility] [address] [facility] [id number] [address] [place] [address] July, [facility] [address] [facility] [id number] [address] [place] [address] Apr, [facility] [address] [facility] [id number] [address] [place] [address] Jan, IMMUNIZATIONS No Known Immunizations SOCIAL HISTORY [...] stripping 10/2017 Surgical History tummy tuck 01/2018 Surgical History right arm 05/2019 Hospitalization History Surgery and childbirth only
--- OUTSIDE RECORDS SUMMARY | 2019-09-29 11:46 | XMS REPORT ---
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 Active 2813121 09 Problem Anxiety state, unspecified F41.1 Act flores 002744174 Problem Vasomotor symptoms due to menopause N95.1 Active 290070808 ALLERGIES No Information ENCOUNTERS Encounter Location Date Diagnosis [facility] [address] [place] [address] [id number] [place] [id number] 18 Apr, 2019 Lateral epicondylitis of rig ht elbow M77.11 [place] [address] [address] Mar, Lateral epicondylitis of rig ht elbow M77.11 [facility] [address] [place] [id number] [place] [id number] Mar, Lip lesion K13.0 [facility] [address] [facility] [id number] [address] [place] [address] Mar, Lateral epicondylitis of rig ht elbow M77.11 [facility] [address] [address] [id number] [place] [phone] 03 Feb, 2019 Dermatitis L30.9 and Pruritic dermatitis L29.9 [facility] [address] [place] [address] [id number] [place] [address] Jun, Left hip pain M25.552 [facility] [place] [id number] [address] Mar, Fever R50.9 and Acute nasoph aryngitis J00 [facility] [place] [address] [address] Mar, [place] [address] [address] Nov, Muscle ache M79.1 [place] [address] [address] Sep, Dysuria R30.[address] [address] Aug, Vasomotor symptoms due to me nopause N95.1 ; Overweight (BMI 25.0- 29.9) E66.3 and Varicosities I86.[address] [address] Jun, [facility] [address] [address] Apr, Cough R05 and Influenza J11. [address] [address] 06 Apr, 2017 Screening breast examination Z12.31 ; Breast tenderness in female N64.4 ; Other obesity due to excess calories E66.09 and Body mass index (BMI) of 31.0-31.9 in adult Z68.31 [facility] [place] [address] [address] Apr, Gastroenteritis K52.9 [facility] [id number] [place] [id number] Mar, Dental examination Z01.20 an d Dental caries K02.9 [facility] [address] [address] Feb, Gum abscess K05.219 [facility] [id number] [place] [address] Feb, [facility] [address] [address] Dec, Varicosities I86.8 [facility] [address] [place] [id number] [place] [address] Sep, [facility] [address] [address] Sep, [facility] [address] [address] Sep, Anxiety state, unspecified F 41.1 [place] [address] [address] Aug, Unspecified mood [affective] disorder F39 and Eating disorder, unspecified F50.9 [facility] [address] [address] Aug, Anxiety state, unspecified F 41.1 [place] [address] [address] Jun, [place] [address] [address] Jun, Fatigue, unspecified type R5 3.83 [facility] [address] [address] Jun, Abdominal pain, left lower q uadrant R10.32 ; Candidiasis, cutaneous B37.2 ; Fatigue, unspecified type R53.83 ; Morbid (severe) obesity due to excess calories E66.01 ; General medical exam Z00.00 and Diverticulitis of large intestine without perforation or abscess without bleeding K57.32 [facility] [address] [place] [id number] [place] [address] 02 May, 2016 Left wrist pain M25.532 and Left wrist sprain, initial encounter S63.502A [place] [address] [facility] [id number] [address] [place] [address] 02 May, 2016 General medical exam Z00.00 [place] [address] [facility] [id number] [address] [place] [address] 12 Mar, 2016 Encounter for routine adult health examination with abnormal findings Z00.01 ; Body mass index (BMI) of 40.0-44.9 in adult Z68.41 ; Morbid (severe) obesity due to excess calories E66.01 ; History of IBS Z87.19 and Family history of colon cancer requiring screening colonoscopy Z80.0 [place] [address] [facility] [id number] [address] [place] [address] Oct, [place] [address] [place] [id number] [place] [address] Oct, Other acute postprocedural p ain G89.18 ; Pain in left knee M25.562 ; Family history of colon cancer requiring screening colonoscopy Z80.0 and Hyperpigmentation L81.9 [place] [address] [place] [address] May, [place] [address] [place] [id number] [place] [address] May, Left knee injury S89.92XA [place] [address] [place] [id number] [place] [address] Apr, [place] [address] [place] [id number] [place] [address] Apr, Left knee injury S89.92XA an d Varicosities I86.8 [place] [address] [place] [address] Mar, [facility] [address] [place] [id number] [place] [address] Mar, Acute pain of left knee M25. 562 and Strain of left knee, initial encounter S86.912A [place] [address] [place] [id number] [place] [address] 05 Mar, 2015 Lower abdominal tenderness R 10.819 and Breast tenderness N64.4 [place] [address] [address] Feb, [place] [address] [address] Feb, Well woman exam Z01.419 ; Va [...] and Complex cyst of left ovary N83.29 [place] [address] [address] 16 Feb, 2015 Abdominal pain R10.9 and Pel renetta pain R10.2 [place] [address] [address] Feb, [place] [address] [address] Feb, [place] [address] [address] Feb, General medical exam Z00.00 ; Right upper quadrant pain R10.11 and History of borderline diabetes mellitus Z87.898 [place] [address] [address] Feb, Right upper quadrant pain R1 0.11 [place] [address] [place] [id number] [place] [id number] 28 Jun, 2014 Lumbago 724.2 [place] [address] [place] [address] 14 Jun, 2014 [facility] [address] [id number] [address] [place] [address], [place] [address] 13 Jun, 2014 [facility] [address] [id number] [address] [place] [address], [place] [address] May, [facility] [address] [id number] [address] [place] [address], [place] [address] May, [facility] [address] [id number] [address] [place] [address], [place] [address] Apr, [facility] [address] [id number] [address] [place] [address], [place] [address] Apr, [facility] [address] [id number] [address] [place] [address], [place] [address] Mar, [facility] [address] [id number] [address] [place] [address], [place] [address] Mar, [facility] [address] [id number] [address] [place] [address], [place] [address] Mar, [facility] [address] [id number] [address] [place] [address], [place] [address] Mar, [facility] [address] [id number] [address] [place] [address], [place] [address] Mar, [facility] [address] [id number] [address] [place] [address], [place] [address] Mar, [facility] [address] [id number] [address] [place] [address], [place] [address] Mar, [facility] [address] [id number] [address] [place] [address], [place] [address] Feb, [facility] [address] [id number] [address] [place] [address], [place] [address] Feb, [facility] [address] [id number] [address] [place] [address], [place] [address] Feb, [facility] [address] [id number] [address] [place] [address], [place] [address] Feb, [facility] [address] [id number] [address] [place] [address], [place] [address] Feb, [facility] [address] [id number] [address] [place] [address], [place] [address] Jan, [facility] [place] [facility] [address] [id number] [address] [place] [address], [place] [address] Jan, [facility] [address] [id number] [address] [place] [address], [place] [address] Oct, [facility] [address] [id number] [address] [place] [address], [place] [address] Oct, [facility] [address] [id number] [address] [place] [address], [place] [address] Sep, [facility] [address] [id number] [address] [place] [address], [place] [address] Sep, [facility] [address] [id number] [address] [place] [address], [place] [address] Aug, [facility] [address] [id number] [address] [place] [address], [place] [address] Aug, [facility] [address] [id number] [address] [place] [address], [place] [address] Aug, [facility] [address] [id number] [address] [place] [address], [place] [address] Apr, [facility] [address] [id number] [address] [place] [address], [place] [address] Apr, [facility] [address] [id number] [address] [place] [address], [place] [address] Apr, [facility] [address] [id number] [address] [place] [address], [place] [address] Apr, [facility] [place] [facility] [address] [id number] [address] [place] [address], [place] [address] Apr, [facility] [address] [id number] [address] [place] [address], [place] [address] Mar, [facility] [address] [id number] [address] [place] [address], [place] [address] Mar, [facility] [address] [id number] [address] [place] [address], [place] [address] Mar, [facility] [address] [id number] [address] [place] [address], [place] [address] Mar, [facility] [address] [id number] [address] [place] [address], [place] [address] Mar, [facility] [address] [id number] [address] [place] [address], [place] [address] Mar, [facility] [address] [id number] [address] [place] [address], [place] [address] Mar, [facility] [address] [id number] [address] [place] [address], [place] [address] Mar, [facility] [address] [id number] [address] [place] [address], [place] [address] Mar, [facility] [address] [id number] [address] [place] [address], [place] [address] Oct, [facility] [address] [id number] [address] [place] [address], [place] [address] July, [facility] [address] [id number] [address] [place] [address], [place] [address] July, [facility] [address] [id number] [address] [place] [address], [place] [address] Jun, [facility] [address] [id number] [address] [place] [address], [place] [address] May, [facility] [address] [id number] [address] [place] [address], [place] [address] Feb, [facility] [address] [facility] [id number] [address] [place] [address] Feb, [facility] [address] [facility] [id number] [address] [place] [address] July, [facility] [address] [facility] [id number] [address] [place] [address] Apr, [facility] [address] [facility] [id number] [address] [place] [address] Jan, IMMUNIZATIONS No Known Immunizations SOCIAL HISTORY Never Assessed REASON FOR VISIT PLAN OF CARE VITAL SIGNS MEDICATIONS Unknown Medications RESULTS No Results PROCEDURES Procedure Date Ordered Result Body Site COMPLETE CBC W/AUTO DIFF WBC Apr 22, 2013 ASSAY THYROID STIM HORMONE Apr 22, 2013 LIPID PANEL Apr 22, 2013 COMPREHEN METABOLIC PANEL Apr 22, 2013 VENIPUNCT, ROUTINE* Apr 22, 2013 INSTRUCTIONS MEDICATIONS ADMINISTERED No Known Medications [...]
--- OUTSIDE RECORDS SUMMARY | 2019-09-29 11:46 | XMS REPORT ---
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 Active [id number] Problem Anxiety state, unspecified F41.1 Act flores [id number] Problem Vasomotor symptoms due to menopause N95.1 Active [id number] ALLERGIES No Information ENCOUNTERS Encounter Location Date Diagnosis [facility] [address] [id number] [address] [place] [id number] July, Sore throat J02.9 ; Painful urination R30.9 and Acute cystitis without hematuria N30.00 [facility] [address] [id number] Jun, Dental examination Z01.20 an d Caries K02.9 [facility] [address] [id number] [address] [place] [id number] Jun, Dental examination Z01.20 [facility] [address] [facility] [id number] [address] [place] [id number] 18 Apr, 2019 Lateral epicondylitis of rig ht elbow M77.11 [facility] [address] [facility] [id number] [address] [place] [id number] Mar, Lateral epicondylitis of rig ht elbow M77.11 [facility] WALK IN [facility] [address] [facility] [id number] [address] [place] [address] 15 Mar, 2019 Lip lesion K13.0 [facility] [address] [facility] [id number] [address] [place] [address] Mar, Lateral epicondylitis of rig ht elbow M77.11 [facility] [id number] [place] [id number] Feb, Dermatitis L30.9 and Pruritic dermatitis L29.[address] [address] Jun, Left hip pain M25.552 [facility] [address] [address] Mar, Fever R50.9 and Acute nasoph aryngitis J00 [facility] [address] [address] Mar, [address] [address] Nov, Muscle ache M79.[address] [address] Sep, Dysuria R30.[address] [address] Aug, Vasomotor symptoms due to me nopause N95.1 ; Overweight (BMI 25.0- 29.9) E66.3 and Varicosities I86.[address] [address] Jun, [facility] [address] [address] Apr, Cough R05 and Influenza J11. [address] [address] 06 Apr, 2017 Screening breast examination Z12.31 ; Breast tenderness in female N64.4 ; Other obesity due to excess calories E66.09 and Body mass index (BMI) of 31.0-31.9 in adult Z68.31 [facility] [address] [place] [address] Apr, Gastroenteritis K52.9 [facility] [address] [id number] [address] [place] [id number] Mar, Dental examination Z01.20 an d Dental caries K02.9 [facility] [address] [facility] [id number] [address] [place] [address] Feb, Gum abscess K05.219 [facility] [address] [id number] [address] [place] [id number] Feb, [facility] [address] [id number] [address] [place] [id number] Dec, Varicosities I86.8 [facility] [address] [id number] [address] [place] [phone] Sep, [facility] [address] [address] Sep, [facility] [address] [id number] [address] [place] [address] Sep, Anxiety state, unspecified F 41.1 [facility] [address] [address] Aug, Unspecified mood [affective] disorder F39 and Eating disorder, unspecified F50.9 [facility] [address] [id number] [address] [place] [address] Aug, Anxiety state, unspecified F 41.1 [facility] [address] [id number] [address] [place] [phone] Jun, [facility] [address] [address] Jun, Fatigue, unspecified type R5 3.83 [facility] [address] [id number] [address] [place] [address] Jun, Abdominal pain, left lower q uadrant R10.32 ; Candidiasis, cutaneous B37.2 ; Fatigue, unspecified type R53.83 ; Morbid (severe) obesity due to excess calories E66.01 ; General medical exam Z00.00 and Diverticulitis of large intestine without perforation or abscess without bleeding K57.32 [facility] [address] [id number] [address] [place] [address] 02 May, 2016 Left wrist pain M25.532 and Left wrist sprain, initial encounter S63.502A [facility] [address] [address] 02 May, 2016 General medical exam Z00.00 [address] [address] 12 Mar, 2016 Encounter for routine adult health examination with abnormal findings Z00.01 ; Body mass index (BMI) of 40.0-44.9 in adult Z68.41 ; Morbid (severe) obesity due to excess calories E66.01 ; History of IBS Z87.19 and Family history of colon cancer requiring screening colonoscopy Z80.0 [address] [address] [address] Oct, [address] [address] Oct, Other acute postprocedural p ain G89.18 ; Pain in left knee M25.562 ; Family history of colon cancer requiring screening colonoscopy Z80.0 and Hyperpigmentation L81.9 [facility] [address] [id number] [address] [place] [address] May, [address] [address] May, Left knee injury S89.92XA [address] [address] [address] Apr, [address] [place] [address] [address] Apr, Left knee injury S89.92XA an d Varicosities I86.8 [facility] [address] [facility] [id number] [address] [place] [address] Mar, [facility] [address] [id number] [address] [place] [address] Mar, Acute pain of left knee M25. 562 and Strain of left knee, initial encounter S86.912A [facility] [address] [id number] [address] [place] [address] Mar, Lower abdominal tenderness R 10.819 and Breast tenderness N64.4 [address] [address] [id number] [place] [address] Feb, [address] [address] [address] Feb, Well woman exam Z01.419 ; Va [...] cyst of left ovary N83.29 [facility] [address] [id number] [address] [place] [address] 16 Feb, 2015 Abdominal pain R10.9 and Pel renetta pain R10.2 [address] [address] [id number] [place] [address] Feb, [address] [address] [address] [address] Feb, [facility] [address] [id number] [address] [place] [address] Feb, General medical exam Z00.00 ; Right upper quadrant pain R10.11 and History of borderline diabetes mellitus Z87.898 [facility] [address] [id number] [address] [place] [address] Feb, Right upper quadrant pain R1 0.11 [facility] [address] [id number] [address] [place] [address] 28 Jun, 2014 Lumbago 724.2 [facility] [address] [id number] [address] [place] [address] 14 Jun, 2014 [facility] [address] [id number] [address] [place] [phone] Jun, [facility] [address] [id number] [address] [place] [phone] May, [facility] [address] [id number] [address] [place] [address] May, [facility] [address] [id number] [address] [place] [address] Apr, [facility] [address] [id number] [address] [place] [address] Apr, [facility] [address] [id number] [address] [place] [phone] Mar, [facility] [address] [id number] [address] [place] [address] Mar, [facility] [address] [id number] [address] [place] [address] Mar, [facility] [address] [id number] [address] [place] [address] Mar, [facility] [address] [id number] [address] [place] [id number] Mar, [facility] [address] [id number] [address] [place] [id number] Mar, [facility] [address] [id number] [address] [place] [address] Mar, [facility] [address] [id number] [address] [place] [address], [place] [address] Feb, [facility] [address] [id number] [address] [place] [address], [place] [address] Feb, [facility] [address] [id number] [address] [place] [address], [place] [address] Feb, [facility] [address] [id number] [address] [place] [address], [place] [address] Feb, [facility] [address] [id number] [address] [place] [address], [place] [address] Feb, [facility] [address] [id number] [address] [place] [address], [place] [address] Jan, [facility] [address] [id number] [address] [place] [address], [place] [address] Jan, [facility] [address] [id number] [address] [place] [address], [place] [address] Oct, [facility] [address] [id number] [address] [place] [address], [place] [address] Oct, [facility] [address] [id number] [address] [place] [address], [place] [id number] Sep, [facility] [address] [id number] [address] [place] [address], [place] [address] Sep, [facility] [address] [id number] [address] [place] [address], [place] [address] Aug, [facility] [address] [id number] [address] [place] [address], [place] [address] Aug, [facility] [address] [id number] [address] [place] [address], [place] [address] Aug, [facility] [address] [id number] [address] [place] [address], [place] [address] Apr, [facility] [address] [id number] [address] [place] [address], [place] [address] Apr, [facility] [address] [id number] [address] [place] [address], [place] [address] Apr, [facility] [address] [id number] [address] [place] [address], [place] [address] Apr, [facility] [address] [id number] [address] [place] [address], [place] [address] Apr, [facility] [address] [id number] [address] [place] [address], [place] [address] Mar, [facility] [address] [id number] [address] [place] [address], [place] [address] Mar, [facility] [address] [id number] [address] [place] [address], [place] [address] Mar, [facility] [address] [id number] [address] [place] [address], [place] [address] Mar, [facility] [address] [id number] [address] [place] [address], [place] [address] Mar, [facility] [address] [id number] [address] [place] [address], [place] [address] Mar, [facility] [address] [id number] [address] [place] [address], [place] [id number] Mar, [facility] [address] [id number] [address] [place] [address], [place] [address] Mar, [facility] [address] [id number] [address] [place] [address], [place] [address] Mar, [facility] [address] [id number] [address] [place] [address], [place] [address] Oct, [facility] [address] [id number] [address] [place] [address], [place] [address] July, [facility] [address] [id number] [address] [place] [address] [address] July, [facility] [address] [id number] [address] [place] [phone] Jun, [facility] [address] [id number] [address] [place] [address] May, [facility] [address] [id number] [address] [place] [id number] Feb, [facility] [address] [id number] [address] [place] [address] Feb, [facility] [address] [id number] [address] [place] [address] July, [facility] [address] [id number] [address] [place] [address] Apr, [facility] [address] [facility] [id number] [address] [place] [address] Jan, IMMUNIZATIONS No Known Immunizations SOCIAL HISTORY Never Assessed REASON FOR VISIT PLAN OF CARE VITAL SIGNS Blood pressure systolic 120 mmHg 2012-11-15 Blood pressure diastolic 80 mmHg 2012-11-15 MEDICATIONS No Known Medications RESULTS No Results PROCEDURES Procedure Date Ordered Result Body Site DRAIN/INJECT, JOINT/BURSA Nov 15, 2012 INJ METHYLPRDNISOLONE ACTAT 80 MG Nov 15, 2012 INSTRUCTIONS MEDICATIONS ADMINISTERED No Known Medications MEDICAL [...]
--- OUTSIDE RECORDS SUMMARY | 2019-09-29 11:48 | XMS REPORT ---
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 Active [id number] Problem Anxiety state, unspecified F41.1 Act flores [id number] Problem Vasomotor symptoms due to menopause N95.1 Active [id number] ALLERGIES No Information ENCOUNTERS Encounter Location Date Diagnosis [place] [address] [place] [id number] [place] [id number] 18 Apr, 2019 Lateral epicondylitis of rig ht elbow M77.11 [facility] [address] [place] [id number] [place] [address] Mar, Lateral epicondylitis of rig ht elbow M77.11 [facility] [address] [place] [id number] [place] [address] Mar, Lip lesion K13.0 [facility] [address] [place] [id number] [place] [address] Mar, Lateral epicondylitis of rig ht elbow M77.11 [facility] [address] [place] [id number] [place] [phone] 03 Feb, 2019 Dermatitis L30.9 and Pruritic dermatitis L29.9 [facility] [address] [place] [id number] [place] [address] Jun, Left hip pain M25.552 [facility] [address] [place] [id number] [place] [address] Mar, Fever R50.9 and Acute nasoph aryngitis J00 [facility] [place] [address] [address] Mar, [place] [address] [address] Nov, Muscle ache M79.1 [place] [address] [address] Sep, Dysuria R30.0 [place] [address] [address] Aug, Vasomotor symptoms due to me nopause N95.1 ; Overweight (BMI 25.0- 29.9) E66.3 and Varicosities I86.8 [place] [address] [address] Jun, [facility] IN [address] [address] Apr, Cough R05 and Influenza J11. [address] [address] 06 Apr, 2017 Screening breast examination Z12.31 ; Breast tenderness in female N64.4 ; Other obesity due to excess calories E66.09 and Body mass index (BMI) of 31.0-31.9 in adult Z68.31 [facility] [place] [address] [address] Apr, Gastroenteritis K52.9 [facility] [address] [place] [id number] Mar, Dental examination Z01.20 an d Dental caries K02.9 [facility] [place] [address] [address] Feb, Gum abscess K05.[address] [address] Feb, [facility] [address] [place] [address] Dec, Varicosities I86.8 [place] [address] [place] [id number] [place] [address] Sep, [facility] [address] [place] [id number] [place] [address] Sep, [place] [address] [address] Sep, Anxiety state, unspecified F 41.1 [place] [address] [address] Aug, Unspecified mood [affective] disorder F39 and Eating disorder, unspecified F50.9 [place] [address] [address] Aug, Anxiety state, unspecified F 41.1 [place] [address] [address] Jun, [place] [address] [address] Jun, Fatigue, unspecified type R5 3.83 [place] [address] [address] 07 Jun, 2016 Abdominal pain, left lower q uadrant R10.32 ; Candidiasis, cutaneous B37.2 ; Fatigue, unspecified type R53.83 ; Morbid (severe) obesity due to excess calories E66.01 ; General medical exam Z00.00 and Diverticulitis of large intestine without perforation or abscess without bleeding K57.32 [facility] [address] [place] [id number] [place] [address] 02 May, 2016 Left wrist pain M25.532 and Left wrist sprain, initial encounter S63.502A [place] [address] [place] [id number] [place] [address] 02 Mar, 2017 General medical exam Z00.00 [facility] [address] [facility] [id number] [address] [place] [phone] 12 Mar, 2017 Encounter for routine adult health examination with abnormal findings Z00.01 ; Body mass index (BMI) of 40.0-44.9 in adult Z68.41 ; Morbid (severe) obesity due to excess calories E66.01 ; History of IBS Z87.19 and Family history of colon cancer requiring screening colonoscopy Z80.0 [place] [address] [id number] [address] [place] [address] 30 Oct, 2015 [place] [address] [facility] [id number] [place] [address] Oct, Other acute postprocedural p ain G89.18 ; Pain in left knee M25.562 ; Family history of colon cancer requiring screening colonoscopy Z80.0 and Hyperpigmentation L81.9 [place] [address] [place] [id number] [place] [address] May, [place] [address] [facility] [id number] [address] [place] [address] May, Left knee injury S89.92XA [place] [address] [place] [id number] [place] [address] Apr, [place] [address] [place] [id number] [place] [address] Apr, Left knee injury S89.92XA an d Varicosities I86.8 [place] [address] [facility] [id number] [address] [place] [address] Mar, [facility] [address] [facility] [id number] [address] [place] [address] Mar, Acute pain of left knee M25. 562 and Strain of left knee, initial encounter S86.912A [place] [address] [place] [id number] [place] [address] Mar, Lower abdominal tenderness R 10.819 and Breast tenderness N64.4 [place] [address] [place] [id number] [place] [address] Feb, [place] [address] [address] 23 Feb, 2015 Well woman exam Z01.419 ; Va ginal [...] and Complex cyst of left ovary N83.29 [place] [address] [address] 16 Feb, 2015 Abdominal pain R10.9 and Pel renetta pain R10.2 [place] [address] [address] Feb, [place] [address] [place] [id number] [place] [address] Feb, [place] [address] [place] [id number] [place] [address] Feb, General medical exam Z00.00 ; Right upper quadrant pain R10.11 and History of borderline diabetes mellitus Z87.898 [place] [address] [place] [id number] [place] [address] Feb, Right upper quadrant pain R1 0.11 [place] [address] [place] [id number] [place] [address] 28 Jun, 2014 Lumbago 724.2 [place] [address] [place] [id number] [place] [address] 14 Jun, 2014 [place] [address] [place] [address] Jun, [facility] [address] [id number] [address] [place] [address], [place] [address] May, [facility] [address] [id number] [address] [place] [address], [place] [address] May, [facility] [address] [id number] [address] [place] [address], [place] [address] Apr, [facility] [address] [id number] [address] [place] [address], [place] [address] Apr, [facility] [address] [id number] [address] [place] [address], [place] [address] Mar, [facility] [address] [id number] [address] [place] [address], [place] [address] Mar, [facility] [address] [id number] [address] [place] [address], [place] [address] Mar, [facility] [address] [id number] [address] [place] [address], [place] [address] Mar, [facility] [address] [id number] [address] [place] [address], [place] [address] Mar, [facility] [address] [id number] [address] [place] [address], [place] [address] Mar, [facility] [address] [id number] [address] [place] [address], [place] [address] Mar, [facility] [address] [id number] [address] [place] [address], [place] [address] Feb, [facility] [address] [id number] [address] [place] [address], [place] [address] Feb, [facility] [address] [id number] [address] [place] [address], [place] [address] Feb, [facility] [address] [id number] [address] [place] [address], [place] [address] Feb, [facility] [address] [id number] [address] [place] [address], [place] [address] Feb, [facility] [address] [id number] [address] [place] [address], [place] [address] Jan, [facility] [address] [id number] [address] [place] [address], [place] [address] Jan, [facility] [address] [id number] [address] [place] [address], [place] [address] Oct, [facility] [address] [id number] [address] [place] [address], [place] [address] Oct, [facility] [address] [id number] [address] [place] [address], [place] [address] Sep, [facility] [address] [id number] [address] [place] [address], [place] [address] Sep, [facility] [address] [id number] [address] [place] [address], [place] [address] Aug, [facility] [address] [id number] [address] [place] [address], [place] [address] Aug, [facility] [address] [id number] [address] [place] [address], [place] [address] Aug, [facility] [address] [id number] [address] [place] [address], [place] [address] Apr, [facility] [address] [id number] [address] [place] [address], [place] [address] Apr, [facility] [address] [id number] [address] [place] [address], [place] [address] Apr, [facility] [address] [id number] [address] [place] [address], [place] [address] Apr, [facility] [address] [id number] [address] [place] [address], [place] [address] Apr, [facility] [address] [id number] [address] [place] [address] [place] [address] Mar, [facility] [address] [id number] [address] [place] [address], [place] [address] Mar, [facility] [address] [id number] [address] [place] [address], [place] [address] Mar, [facility] [address] [id number] [address] [place] [address], [place] [address] Mar, [facility] [address] [id number] [address] [place] [address], [place] [address] Mar, [facility] [address] [id number] [address] [place] [address], [place] [address] Mar, [facility] [address] [id number] [address] [place] [address], [place] [address] Mar, [facility] [address] [id number] [address] [place] [address], [place] [address] Mar, [facility] [address] [id number] [address] [place] [address], [place] [address] Mar, [facility] [address] [id number] [address] [place] [address], [place] [address] Oct, [facility] [address] [id number] [address] [place] [address], [place] [address] July, [facility] [address] [id number] [address] [place] [address], [place] [address] July, [facility] [address] [id number] [address] [place] [address], [place] [address] Jun, [facility] [address] [id number] [address] [place] [address], [place] [address] May, [facility] [address] [id number] [address] [place] [address], [place] [address] Feb, [facility] [address] [id number] [address] [place] [address], [place] [address] Feb, [facility] [address] [facility] [id number] [address] [place] [address] July, [facility] [address] [facility] [id number] [address] [place] [address] Apr, [facility] [address] [facility] [id number] [address] [place] [address] Jan, IMMUNIZATIONS No Known Immunizations SOCIAL HISTORY Never Assessed REASON FOR VISIT PLAN OF CARE VITAL SIGNS Height 62 in 2012-06-20 Weight 221.4 lbs 2012-06-20 Temperature 98.1 degrees Fahrenheit 2012-06-20 Heart Rate 64 bpm 2012-06-20 Respiratory Rate 16 2012-06-20 Blood pressure systolic 108 mmHg 2012-06-20 Blood pressure diastolic 76 mmHg 2012-06-20 MEDICATIONS Unknown Medications RESULTS No Results PROCEDURES Procedure Date Ordered Result Body Site X-RAY EXAM OF KNEE, 1 OR 2 June 20, 2012 INSTRUCTIONS MEDICATIONS ADMINISTERED No Known Medications [...]
--- OUTSIDE RECORDS SUMMARY | 2019-09-29 11:49 | XMS REPORT ---
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 [address] [place] [id number] [place] [address] Mar, Lip lesion K13.0 [facility] [place] [id number] [place] [address] Mar, Lateral epicondylitis of rig ht elbow M77.11 [facility] [address] [place] [id number] [place] [phone] 03 Feb, 2019 Dermatitis L30.9 and Pruritic dermatitis L29.9 [facility] [address] [place] [id number] [place] [address] Jun, Left hip pain M25.552 [facility] [place] [address] [address] Mar, Fever R50.9 and Acute nasoph aryngitis J00 [facility] [place] [address] [address] Mar, [place] [address] [address] Nov, Muscle ache M79.1 [place] [address] [address] Sep, Dysuria R30.[address] [address] Aug, Vasomotor symptoms due to me nopause N95.1 ; Overweight (BMI 25.0- 29.9) E66.3 and Varicosities I86.[address] [address] Jun, [facility] [address] [address] Apr, Cough R05 and Influenza J11. [address] [address] 06 Apr, 2017 Screening breast examination Z12.31 ; Breast tenderness in female N64.4 ; Other obesity due to excess calories E66.09 and Body mass index (BMI) of 31.0-31.9 in adult Z68.31 [facility] [place] [address] [address] Apr, Gastroenteritis K52.9 [facility] [address] [place] [id number] Mar, Dental examination Z01.20 an d Dental caries K02.9 [facility] [address] [address] Feb, Gum abscess K05.219 [facility] [address] [place] [id number] [place] [address] Feb, [facility] [address] [address] Dec, Varicosities I86.8 [facility] [address] [place] [id number] [place] [address] Sep, [facility] [address] [address] Sep, [facility] [address] [address] Sep, Anxiety state, unspecified F 41.1 [place] [address] [address] Aug, Unspecified mood [affective] disorder F39 and Eating disorder, unspecified F50.9 [facility] [address] [address] Aug, Anxiety state, unspecified F 41.1 [place] [address] [address] Jun, [place] [address] [address] Jun, Fatigue, unspecified type R5 3.83 [facility] [address] [address] Jun, Abdominal pain, left lower q uadrant R10.32 ; Candidiasis, cutaneous B37.2 ; Fatigue, unspecified type R53.83 ; Morbid (severe) obesity due to excess calories E66.01 ; General medical exam Z00.00 and Diverticulitis of large intestine without perforation or abscess without bleeding K57.32 [facility] [address] [place] [id number] [place] [address] 02 May, 2016 Left wrist pain M25.532 and Left wrist sprain, initial encounter S63.502[address] [place] [address] [facility] [id number] [address] [place] [address] 02 May, 2016 General medical exam Z00.00 [place] [address] [address] [facility] [id number] [address] [place] [address] 12 Mar, 2016 Encounter for routine adult health examination with abnormal findings Z00.01 ; Body mass index (BMI) of 40.0-44.9 in adult Z68.41 ; Morbid (severe) obesity due to excess calories E66.01 ; History of IBS Z87.19 and Family history of colon cancer requiring screening colonoscopy Z80.0 [place] [address] [facility] [id number] [address] [place] [address] Oct, [place] [address] [place] [id number] [place] [address] Oct, Other acute postprocedural p ain G89.18 ; Pain in left knee M25.562 ; Family history of colon cancer requiring screening colonoscopy Z80.0 and Hyperpigmentation L81.9 [place] [address] [place] [address] May, [place] [address] [place] [id number] [place] [address] May, Left knee injury S89.92XA [place] [address] [place] [id number] [place] [address] Apr, [place] [address] [place] [id number] [place] [address] Apr, Left knee injury S89.92XA an d Varicosities I86.8 [place] [address] [place] [address] Mar, [facility] [address] [place] [id number] [place] [address] Mar, Acute pain of left knee M25. 562 and Strain of left knee, initial encounter S86.912A [place] [address] [place] [id number] [place] [address] 05 Mar, 2015 Lower abdominal tenderness R 10.819 and Breast tenderness N64.4 [place] [address] [address] Feb, [place] [address] [address] Feb, Well woman exam Z01.419 ; Va [...] and Complex cyst of left ovary N83.29 [place] [address] [address] 16 Feb, 2015 Abdominal pain R10.9 and Pel renetta pain R10.2 [place] [address] [address] Feb, [place] [address] [address] Feb, [place] [address] [address] Feb, General medical exam Z00.00 ; Right upper quadrant pain R10.11 and History of borderline diabetes mellitus Z87.898 [place] [address] [address] Feb, Right upper quadrant pain R1 0.11 [place] [address] [place] [id number] [place] [address] 28 Jun, 2014 Lumbago 724.2 [place] [address] [place] [address] 14 Jun, 2014 [facility] [address] [id number] [address] [place] [address], [place] [address] 13 Jun, 2014 [facility] [address] [id number] [address] [place] [address], [place] [address] May, [facility] [address] [id number] [address] [place] [address], [place] [address] May, [facility] [address] [id number] [address] [place] [address], [place] [address] Apr, [facility] [address] [id number] [address] [place] [address], [place] [address] Apr, [facility] [address] [id number] [address] [place] [address], [place] [address] Mar, [facility] [address] [id number] [address] [place] [address], [place] [address] Mar, [facility] [address] [id number] [address] [place] [address], [place] [address] Mar, [facility] [address] [id number] [address] [place] [address], [place] [address] Mar, [facility] [address] [id number] [address] [place] [address], [place] [address] Mar, [facility] [address] [id number] [address] [place] [address], [place] [address] Mar, [facility] [address] [id number] [address] [place] [address], [place] [address] Mar, [facility] [address] [id number] [address] [place] [address], [place] [address] Feb, [facility] [address] [id number] [address] [place] [address], [place] [address] Feb, [facility] [address] [id number] [address] [place] [address], [place] [address] Feb, [facility] [address] [id number] [address] [place] [address], [place] [address] Feb, [facility] [address] [id number] [address] [place] [address], [place] [address] Feb, [facility] [address] [id number] [address] [place] [address], [place] [address] Jan, [facility] [place] [facility] [address] [id number] [address] [place] [address], [place] [address] Jan, [facility] [address] [id number] [address] [place] [address], [place] [address] Oct, [facility] [address] [id number] [address] [place] [address], [place] [address] Oct, [facility] [address] [id number] [address] [place] [address], [place] [address] Sep, [facility] [address] [id number] [address] [place] [address], [place] [address] Sep, [facility] [address] [id number] [address] [place] [address], [place] [address] Aug, [facility] [address] [id number] [address] [place] [address], [place] [address] Aug, [facility] [address] [id number] [address] [place] [address], [place] [address] Aug, [facility] [place] [facility] [address] [id number] [address] [place] [address], [place] [address] Apr, [facility] [place] [address] [id number] [address] [place] [address], [place] [address] Apr, [facility] [place] [address] [id number] [address] [place] [address], [place] [address] Apr, [facility] [place] [address] [id number] [address] [place] [address], [place] [address] Apr, [facility] [place] [address] [id number] [address] [place] [address], [place] [address] Apr, [facility] [address] [id number] [address] [place] [address], [place] [address] Mar, [facility] [address] [id number] [address] [place] [address], [place] [address] Mar, [facility] [address] [id number] [address] [place] [address], [place] [address] Mar, [facility] [address] [id number] [address] [place] [address], [place] [address] Mar, [facility] [address] [id number] [address] [place] [address], [place] [address] Mar, [facility] [address] [id number] [address] [place] [address], [place] [address] Mar, [facility] [address] [id number] [address] [place] [address], [place] [address] Mar, [facility] [address] [id number] [address] [place] [address], [place] [address] Mar, [facility] [address] [id number] [address] [place] [address], [place] [address] Mar, [facility] [address] [id number] [address] [place] [address], [place] [address] Oct, [facility] [address] [id number] [address] [place] [address], [place] [address] July, [facility] [address] [id number] [address] [place] [address], [place] [address] July, [facility] [address] [id number] [address] [place] [address], [place] [address] Jun, [facility] [address] [id number] [address] [place] [address], [place] [address] May, [facility] [address] [id number] [address] [place] [address], [place] [address] Feb, [facility] [address] [facility] [id number] [address] [place] [address] Feb, [facility] [address] [facility] [id number] [address] [place] [address] July, [facility] [address] [facility] [id number] [address] [place] [address] Apr, [facility] [address] [facility] [id number] [address] [place] [address] Jan, IMMUNIZATIONS No Known Immunizations SOCIAL HISTORY [...]
--- OUTSIDE RECORDS SUMMARY | 2019-09-29 11:50 | XMS REPORT | Continuity of Care Document ---
Demographics Preferred Language Unknown Marital Status Unknown Sabianism Affiliation Unknown Race Unknown Ethnic Group Unknown Author Organization Unknown Address Unknown Phone Unavailable Allergies Active Description Code Type Severity Reaction Onset Reported/Identified Relationship to Patient Clinical Status Yes NO KNOWN DRUG ALLERGIES NO KNOWN DRUG ALLERG UNKNOWN Yes NO KNOWN DRUG ALLERGIES UNKNOWN NO KNOWN DRUG ALLERG Yes NO KNOWN DRUG ALLERGIES UNKNOWN UNKNOWN Yes NKANo Known Allergies NKA Miscellaneous Allergy Mild N/A 07/24/2016 Yes No Known Drug Allergies [id number] Drug Allergy Unknown N/A 11/10/2016 Medications Medication Packaging Start Date St op Date Route Dosage Sig KETOROLAC VIAL INJ 60 MG/2CC (TORADOL VIAL ) MG 04/08/2016 04/08/2016 ONCE&1130 KETOROLAC VIAL INJ 30 MG/CC (TORADOL VIAL) MG 05/20/2017 05/20/2017 ONCE&2044 Methylprednisolone inj susp 80mg (DEPO-Med rol) MG 05/20/2017 05/20/2017 ONCE&2044 LACTATED RINGERS 1000CC IV BAG INJ ml 06/06/2019 06/13/2019 CONTINUOUSEVERY 0 Hour CEFAZOLIN VIAL INJ 1 GM (ANCEF) 06/06/2019 06/06/2019 ONCE&1000 FENTANYL INJ 100 MCG/2CC VIAL MCG 06/06/2019 06/07/2019 PRN EVERY 0 Hour Problems Date Dx Coded Attending Type Code [...] Sample Taken For Pap Smear 01/26/2009 MIRIAN NEALN, VERONIUQE R V72.31 Cervix Sample Taken For Pap Smear 01/26/2009 JARON VELA APRNINA R V72.31 Cervix Sample Taken For Pap Smear 01/26/2009 MIRIAN MEEHAN, VERONIQUE R V72.31 Cervix Sample Taken For Pap Smear 05/11/2009 009.1 PRATIBHA ROENTERITIS INFECT 05/11/2009 ADELINE BASSETT APRN 009.1 GASTROENTERITIS INFECT 05/11/2009 009.1 PRATIBHA ROENTERITIS INFECT 05/11/2009 009.1 PRATIBHA ROENTERITIS INFECT 05/11/2009 VERONIQUE VELA APRN R 009.1 GASTROENTERITIS INFECT 05/11/2009 POPE DO, ROLY K 009.1 GASTROENTERITIS INFECT 05/11/2009 BERTHA RIOS APRN S 009.1 GASTROENTERITIS INFECT 05/11/2009 POPE DO, ROLY K 009.1 GASTROENTERITIS INFECT 05/11/2009 VERONIQUE VELA APRN R 009.1 GASTROENTERITIS INFECT 05/11/2009 VERONIQUE VELA APRN R 009.1 GASTROENTERITIS INFECT 05/11/2009 VERONIQUE VELA APRN R 009.1 GASTROENTERITIS INFECT 05/11/2009 VERONIQUE VELA APRN R 009.1 GASTROENTERITIS INFECT 07/24/2009 Ot 272.4 07/24/2009 Ot 724.5 07/24/2009 Ot 786.50 07/24/2009 Ot 786.52 08/10/2009 716.90 ART HRITIS/ ARTHROPATHY, UNSPECIFIED 08/10/2009 724.5 BACK ACHE UNSPECIFIED 08/10/2009 ADELINE BSASETT APRN 716.90 ARTHRITIS/ ARTHROPATHY, UNSPECIFIED 08/10/2009 ADELINE BASSETT APRN 724.5 BACKACHE UNSPECIFIED 08/10/2009 716.90 ART HRITIS/ ARTHROPATHY, UNSPECIFIED 08/10/2009 724.5 BACK ACHE UNSPECIFIED 08/10/2009 716.90 ART HRITIS/ ARTHROPATHY, UNSPECIFIED 08/10/2009 724.5 BACK ACHE UNSPECIFIED 08/10/2009 VERONIQUE VELA APRN R 716.90 ARTHRITIS/ ARTHROPATHY, UNSPECIFIED 08/10/2009 VERONIQUE VELA APRN R 724.5 BACKACHE UNSPECIFIED 08/10/2009 POPE DO, ROLY K 716.90 ARTHRITIS/ ARTHROPATHY, UNSPECIFIED 08/10/2009 POPE DO, ROLY K 724.5 BACKACHE UNSPECIFIED 08/10/2009 GABRIEL JAIL KEEPERTUANA S 716.90 ARTHRITIS/ ARTHROPATHY, UNSPECIFIED 08/10/2009 GABRIEL JAIL KEEPER, BERTHA S 724.5 BACKACHE UNSPECIFIED 08/10/2009 POPE DO, ROLY K 716.90 ARTHRITIS/ ARTHROPATHY, UNSPECIFIED 08/10/2009 POPE DO, ROLY K 724.5 BACKACHE UNSPECIFIED 08/10/2009 MIRAIN JAIL KEEPER, VERONIQUE R 716.90 ARTHRITIS/ ARTHROPATHY, UNSPECIFIED 08/10/2009 MIRIAN JAIL KEEPER, VERONIQUE R 724.5 BACKACHE UNSPECIFIED 08/10/2009 MIRIAN JAIL KEEPER, VERONIQUE R 716.90 ARTHRITIS/ ARTHROPATHY, UNSPECIFIED 08/10/2009 MIRIAN JAIL KEEPER, VERONIQUE R 724.5 BACKACHE UNSPECIFIED 08/10/2009 MIRIAN JAIL KEEPER, VERONIQUE R 716.90 ARTHRITIS/ ARTHROPATHY, UNSPECIFIED 08/10/2009 MIRIAN JAIL KEEPER, VERONIQUE R 724.5 BACKACHE UNSPECIFIED 08/10/2009 MIRIAN JAIL KEEPER, VERONIQUE R 716.90 ARTHRITIS/ ARTHROPATHY, UNSPECIFIED 08/10/2009 MIRIAN JAIL KEEPER, VERONIQUE R 724.5 BACKACHE UNSPECIFIED 09/10/2009 717.7 [...] OR MENISCUS OF KNEE, CURRENT 09/10/2009 MIRIAN JAIL KEEPER, VERONIQUE R 717.7 CHONDROMALACIA OF PATELLA 09/10/2009 MIRIAN JAIL KEEPER, VERONIQUE R 836.0 TEAR OF MEDIAL CARTILAGE OR MENISCUS OF KNEE, CURRENT 09/10/2009 ROLY POPE DO K 717.7 CHONDROMALACIA OF [place] 09/10/2009 NOEL POPE DOA K 836.0 TEAR OF MEDIAL CARTILAGE OR MENISCUS OF KNEE, CURRENT 09/10/2009 BERTHA RIOS APRN S 717.7 CHONDROMALACIA OF [place] 09/10/2009 TUAN RIOS APRNA S 836.0 TEAR OF MEDIAL CARTILAGE OR MENISCUS OF KNEE, CURRENT 09/10/2009 NOEL POPE DOA K 717.7 CHONDROMALACIA OF [place]LL[place] 09/10/2009 NOEL POPE DOA K 836.0 TEAR OF MEDIAL CARTILAGE OR MENISCUS OF KNEE, CURRENT 09/10/2009 MIRIAN JAIL KEEPER, VERONIQUE R 717.7 CHONDROMALACIA OF [place] 09/10/2009 MIRIAN JAIL KEEPER, VERONIQUE R 836.0 TEAR OF MEDIAL CARTILAGE OR MENISCUS OF KNEE, CURRENT 09/10/2009 MIRIAN JAIL KEEPER, VERONIQEU R 717.7 CHONDROMALACIA OF [place]LLA 09/10/2009 MIRIAN JAIL KEEPER, VERONIQUE R 836.0 TEAR OF MEDIAL CARTILAGE OR MENISCUS OF KNEE, CURRENT 09/10/2009 MIRIAN JAIL KEEPER, VERONIQUE R 717.7 CHONDROMALACIA OF [place]LL[place] 09/10/2009 MIRIAN JAIL KEEPER, VERONIQUE R 836.0 TEAR OF MEDIAL CARTILAGE OR MENISCUS OF KNEE, CURRENT 09/10/2009 MIRIAN JAIL KEEPER, VERONIQUE R 717.7 CHONDROMALACIA OF PATELLA 09/10/2009 MIRIAN JAIL KEEPER, VERONIQUE R 836.0 TEAR OF MEDIAL CARTILAGE OR MENISCUS OF KNEE, CURRENT 03/07/2010 Ot 787.91 03/07/2010 Ot 789.09 06/20/2012 ADELINE BASSETT APRN 719.46 PAIN IN JOINT INVOLVING LOWER LEG 06/20/2012 719.46 [place] N IN JOINT INVOLVING LOWER LEG 06/20/2012 719.46 [place] N IN JOINT INVOLVING LOWER LEG 06/20/2012 MIRIAN MEEHAN, VERONIQUE R 719.46 PAIN IN JOINT INVOLVING LOWER LEG 06/20/2012 ROLY POPE DO K 719.46 PAIN IN JOINT INVOLVING LOWER LEG 06/20/2012 BERTHA RIOS APRN S 719.46 PAIN IN JOINT INVOLVING LOWER LEG 06/20/2012 ROLY POPE DO K 719.46 PAIN IN JOINT INVOLVING LOWER LEG 06/20/2012 JARON VELA APRNINA R 719.46 PAIN IN JOINT INVOLVING LOWER LEG 06/20/2012 MIRIAN MEEHAN VERONIQUE R 719.46 PAIN IN JOINT INVOLVING LOWER LEG 06/20/2012 MIRIAN MEEHAN VERONIQUE R 719.46 PAIN IN JOINT INVOLVING LOWER LEG 06/20/2012 MIRIAN MEEHAN VERONIQUE R 719.46 PAIN IN JOINT INVOLVING LOWER LEG 08/24/2012 726.73 JOANNE L SPUR 08/24/2012 726.73 JOANNE L SPUR 08/24/2012 JARON VELA APRNINA R 726.73 HEEL SPUR 08/24/2012 POPE DO, ROLY K 726.73 HEEL SPUR 08/24/2012 GABRIEL MEEHAN BERTHA S 726.73 HEEL SPUR 08/24/2012 POPE DO, ROLY K 726.73 HEEL SPUR 08/24/2012 MIRIAN MEEHAN VERONIQUE R 726.73 HEEL SPUR 08/24/2012 MIRIAN MEEHAN VERONIQUE R 726.73 HEEL SPUR 08/24/2012 MIRIAN MEEHAN VERONIQUE R 726.73 HEEL SPUR 08/24/2012 MIRIAN MEEHAN VERONIQUE R 726.73 HEEL SPUR 04/19/2013 MIRIAN MEEHAN VERONIQUE R 780.4 DIZZINESS AND VERTIGO 04/19/2013 MIRIAN MEEHAN VERONIQUE R 783.1 ABNORMAL WEIGHT GAIN 04/19/2013 POPE DO, ROLY K 780.4 DIZZINESS AND VERTIGO 04/19/2013 POPE DO, ROLY K 783.1 ABNORMAL WEIGHT GAIN 04/19/2013 GABRIEL MEEHAN BERTHA S 780.4 DIZZINESS AND VERTIGO 04/19/2013 CURT RIOS APRNNDA S 783.1 ABNORMAL WEIGHT GAIN 04/19/2013 POPE DO, ROLY K 780.4 DIZZINESS AND VERTIGO 04/19/2013 POPE DO, ROLY K 783.1 ABNORMAL WEIGHT GAIN 04/19/2013 MIRIAN MEEHAN VERONIQUE R 780.4 DIZZINESS AND VERTIGO 04/19/2013 JARON VELA APRNINA R 783.1 ABNORMAL WEIGHT GAIN 04/19/2013 JARON VELA APRNINA R 780.4 DIZZINESS AND VERTIGO 04/19/2013 MIRIAN MEEHAN VERONIQUE R 783.1 ABNORMAL WEIGHT GAIN 04/19/2013 MIRIAN MEEHAN VERONIQUE R 780.4 DIZZINESS AND VERTIGO 04/19/2013 MIRIAN NEALN, VERONIQUE R 783.1 ABNORMAL WEIGHT GAIN 04/19/2013 MIRIAN NEALN, VERONIQUE R 780.4 DIZZINESS AND VERTIGO 04/19/2013 MIRIAN NEALN, VERONIQUE R 783.1 ABNORMAL WEIGHT GAIN 08/05/2013 JAELYN MORALES JAIL KEEPER Ot 454 .9 08/05/2013 JAELYN MORALES JAIL KEEPER Ot 729 .5 08/26/2013 JAELYN MORALES JAIL KEEPER Ot 599 .0 08/26/2013 JAELYN MORALES JAIL KEEPER Ot 787.02 10/22/2013 BERTHA RIOS APRN S 729.4 PLANTAR FASCIITIS 10/22/2013 TOSHIA LEON ROLY K 729.4 PLANTAR FASCIITIS 10/22/2013 MIRIAN MEEHAN VERONIQUE R 729.4 PLANTAR FASCIITIS 10/22/2013 MIRIAN MEEHAN VERONIQUE R 729.4 PLANTAR FASCIITIS 10/22/2013 MIRIAN MEEHAN VERONIQUE R 729.4 PLANTAR FASCIITIS 10/22/2013 MIRIAN MEEHAN VERONIQUE R 729.4 PLANTAR FASCIITIS 02/03/2014 TOSHIA LEON ROLY K 008.8 INTESTINAL INFECTION DUE TO OTHER ORGANISM NOT ELSEWHERE CLASSIFIED 02/03/2014 TOSHIA LEON ROLY K 787.01 NAUSEA WITH VOMITING 02/03/2014 TOSHIA LEON ROLY K 789.00 ABDOMINAL PAIN UNSPECIFIED SITE [...] 789.00 ABDOMINAL PAIN UNSPECIFIED SITE 02/03/2014 MIRIAN JAIL KEEPER, VERONIQUE R 008.8 INTESTINAL INFECTION DUE TO OTHER ORGANISM NOT ELSEWHE RE CLASSIFIED 02/03/2014 MIRIAN JAIL KEEPER, VERONIQUE R 787.01 NAUSEA WITH VOMITING 02/03/2014 MIRIAN JAIL KEEPER, VERONIQUE R 789.00 ABDOMINAL PAIN UNSPECIFIED SITE 03/04/2014 MIRIAN JAIL KEEPER, VERONIQUE R 780.79 OTHER MALAISE AND FATIGUE 03/04/2014 MIRIAN JAIL KEEPER, VERONIQUE R 786.2 COUGH 03/04/2014 MIRIAN JAIL KEEPER, VERONIQUE R 780.79 OTHER MALAISE AND FATIGUE 03/04/2014 MIRIAN JAIL KEEPER, VERONIQUE R 786.2 COUGH 03/04/2014 MIRIAN JAIL KEEPER, VERONIQUE R 780.79 OTHER MALAISE AND FATIGUE 03/04/2014 MIRIAN JAIL KEEPER, VERONIQUE R 786.2 COUGH 03/04/2014 MIRIAN JAIL KEEPER, VERONIQUE R 780.79 OTHER MALAISE AND FATIGUE 03/04/2014 MIRIAN JAIL KEEPER, VERONIQUE R 786.2 COUGH 05/01/2014 MIRIAN JAIL KEEPER, VERONIQUE R 723.1 CERVICALGIA 05/01/2014 MIRIAN JAIL KEEPER, VERONIQUE R 723.1 CERVICALGIA 05/01/2014 MIRIAN JAIL KEEPER, VERONIQUE R 723.1 CERVICALGIA 07/12/2014 Ot 717.3 07/12/2014 Ot 719.06 07/12/2014 JAELYN MORALES JAIL KEEPER Ot 724 .2 07/12/2014 JAELYN MORALES JAIL KEEPER Ot 724 .4 07/17/2014 MIRIAN NEALN, VERONIQUE R 724.2 LUMBAGO/ LOW BACK PAIN 07/17/2014 MIRIAN NEALN, VERONIQUE R 729.1 MYALGIA AND MYOSITIS UNSPECIFIED [...] BOTH CERVIX AND UTER 03/31/2015 SARAHI ERVIN JAIL KEEPER Ot R10.11 05/20/2015 QAMAR GODOY JAIL KEEPER Ot N64.4 05/22/2015 SARAHI ERVIN JAIL KEEPER Ot R10.11 05/22/2015 QAMAR GODOY JAIL KEEPER Ot N64.4 06/01/2015 SARAHI ERVIN JAIL KEEPER Ot S89.92XA 06/01/2015 SARAHI ERVIN JAIL KEEPER Ot X58.XXXA 06/01/2015 SARAHI ERVIN JAIL KEEPER Ot Y99.8 09/10/2015 SARAHI ERVIN JAIL KEEPER Ot R10.11 RIGHT UPPER QUADRANT PAIN 09/10/2015 QAMAR GODOY JAIL KEEPER Ot N64.4 MASTODYNIA 09/10/2015 SARAHI ERVIN JAIL KEEPER Ot S89.92XA UNSPECIFIED INJURY OF LEFT LOWER LEG, IN 09/10/2015 SARAHI ERVIN JAIL KEEPER Ot X58.XXXA EXPOSURE TO OTHER SPECIFIED FACTORS, INI 09/10/2015 SARAHI ERVIN JAIL KEEPER Ot Y99.8 OTHER EXTERNAL CAUSE STATUS 09/10/2015 JUSTUS LIN DO Ot H92.02 OTALGIA, LEFT EAR 09/10/2015 JUSTUS LIN DO Ot J01.90 ACUTE SINUSITIS, UNSPECIFIED 09/10/2015 JUSTUS LIN DO, Ot J4 0 BRONCHITIS, NOT SPECIFIED ACUTE [...] PAIN IN RIGHT ARM 11/19/2015 SARAHI ERVIN JAIL KEEPER Ot R10.11 RIGHT UPPER QUADRANT PAIN 11/23/2015 SARAHI ERVIN JAIL KEEPER Ot M25.562 PAIN IN LEFT KNEE 11/23/2015 SARAHI ERVIN R JAIL KEEPER Ot 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] 11/25/2015 SARAHI ERVIN R JAIL KEEPER Ot M25.562 PAIN IN LEFT KNEE 11/29/2015 SARAHI ERVIN R JAIL KEEPER Ot M25.562 PAIN IN LEFT KNEE 03/08/2016 SARAHI ERVIN JAIL KEEPER Ot R10.11 RIGHT UPPER QUADRANT PAIN 03/08/2016 SARAHI ERVIN R JAIL KEEPER Ot M25.562 PAIN IN LEFT KNEE 03/08/2016 SARAHI ERVIN R JAIL KEEPER Ot M25.562 PAIN IN LEFT KNEE 03/08/2016 SARAHI ERVIN R JAIL KEEPER Ot 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] 03/08/2016 ADILIA RAHMAN Ot J02.9 ACUTE PHARYNGITIS, UNSPECIFIED 03/08/2016 ADILIA RAHMAN Ot J20.9 ACUTE BRONCHITIS, UNSPECIFIED 03/08/2016 ADILIA RAHMAN Ot R11.2 NAUSEA WITH VOMITING, UNSPECIFIED 03/08/2016 ADILIA RAHMAN Ot R19.7 DIARRHEA, UNSPECIFIED 03/08/2016 SARAHI ERVIN R JAIL KEEPER Ot R10.11 RIGHT UPPER QUADRANT PAIN 03/08/2016 QAMAR GODOY JAIL KEEPER Ot N64.4 MASTODYNIA 03/08/2016 SARAHI ERVIN JAIL KEEPER Ot S89.92XA UNSPECIFIED INJURY OF LEFT LOWER LEG, IN 03/08/2016 SARAHI ERVIN JAIL KEEPER Ot X58.XXXA EXPOSURE TO OTHER SPECIFIED FACTORS, INI 03/08/2016 SARAHI ERVIN JAIL KEEPER Ot Y99.8 OTHER EXTERNAL CAUSE STATUS 03/09/2016 [...] WALL OF THORAX, INIT 04/21/2016 SARAHI ERVIN JAIL KEEPER Ot R10.11 RIGHT UPPER QUADRANT PAIN 04/21/2016 QAMAR GODOY JAIL KEEPER Ot N64.4 MASTODYNIA 04/21/2016 SARAHI ERVIN JAIL KEEPER Ot S89.92XA UNSPECIFIED INJURY OF LEFT LOWER LEG, IN 04/21/2016 SARAHI ERVIN JAIL KEEPER Ot X58.XXXA EXPOSURE TO OTHER SPECIFIED FACTORS, INI 04/21/2016 SARAHI ERVIN JAIL KEEPER Ot Y99.8 OTHER EXTERNAL CAUSE STATUS 04/21/2016 JAELYN MORALES JAIL KEEPER Ot E11 .9 TYPE 2 DIABETES MELLITUS WITHOUT COMPLIC 04/21/2016 JAELYN MORALES APRN Ot M54.41 LUMBAGO WITH SCIATICA, RIGHT SIDE 04/21/2016 JAELYN MORALES APRN Ot M54 .5 LOW BACK PAIN 04/22/2016 JAELYN MORALES JAIL KEEPER Ot E11 .9 TYPE 2 DIABETES MELLITUS WITHOUT COMPLIC 04/22/2016 JAELYN MORALES APRN Ot M54.41 LUMBAGO WITH SCIATICA, RIGHT SIDE 04/22/2016 JAELYN MORALES APRN Ot M54 .5 LOW BACK PAIN 04/27/2016 JAELYN MORALES JAIL KEEPER Ot E11 .9 TYPE 2 DIABETES MELLITUS WITHOUT COMPLIC 04/27/2016 JAELYN MORALES JAIL KEEPER Ot M54.41 LUMBAGO WITH SCIATICA, RIGHT SIDE 04/27/2016 JAELYN MORALES JAIL KEEPER Ot M54 .5 LOW BACK PAIN 04/29/2016 JAELYN MORALES JAIL KEEPER Ot E11 .9 TYPE 2 DIABETES MELLITUS WITHOUT COMPLIC 04/29/2016 JAELYN MORALES JAIL KEEPER Ot M54.41 LUMBAGO WITH SCIATICA, RIGHT SIDE 04/29/2016 JAELYN MORALES JAIL KEEPER Ot M54 .5 LOW BACK PAIN 07/21/2016 SARAHI ERVIN JAIL KEEPER Ot R10.11 RIGHT UPPER QUADRANT PAIN 07/21/2016 QAMAR GODOY JAIL KEEPER Ot N64.4 MASTODYNIA 07/21/2016 SARAHI ERVIN JAIL KEEPER Ot S89.92XA UNSPECIFIED INJURY OF LEFT LOWER LEG, IN 07/21/2016 SARAHI ERVIN JAIL KEEPER Ot X58.XXXA EXPOSURE TO OTHER SPECIFIED FACTORS, INI 07/21/2016 SARAHI ERVIN JAIL KEEPER Ot Y99.8 OTHER EXTERNAL CAUSE STATUS 07/24/2016 SARAHI ERVIN JAIL KEEPER Ot R10.11 RIGHT UPPER QUADRANT PAIN 07/24/2016 QAMAR GODOY JAIL KEEPER Ot N64.4 MASTODYNIA 07/24/2016 SARAHI ERVIN JAIL KEEPER Ot S89.92XA UNSPECIFIED INJURY OF LEFT LOWER LEG, IN 07/24/2016 SARAHI ERVIN JAIL KEEPER Ot X58.XXXA EXPOSURE TO OTHER SPECIFIED FACTORS, INI 07/24/2016 SARAHI ERVIN JAIL KEEPER Ot Y99.8 OTHER EXTERNAL CAUSE STATUS 07/24/2016 INOCENCIO LEMUS, WATSON Ot R10.11 RIGHT UPPER QUADRANT PAIN 07/24/2016 WATSON PAINTER MD Ot R10.32 LEFT LOWER QUADRANT PAIN 07/24/2016 CATHI LEMUS, NINO Sahni Ot E11.9 TYPE 2 DIABETES MELLITUS WITHOUT COMPLIC 07/24/2016 CATHI LEMUS, NINO Sahni Ot N83.292 OTHER OVARIAN CYST, LEFT SIDE 07/24/2016 NINO WINKLER MD Ot R10.11 RIGHT UPPER QUADRANT PAIN 07/24/2016 NINO WINKLER MD Ot R11.2 NAUSEA WITH VOMITING, UNSPECIFIED 07/25/2016 NINO WINKLER MD Ot E11.9 TYPE 2 DIABETES MELLITUS WITHOUT COMPLIC 07/25/2016 NINO WINKLER MD Ot N83.292 OTHER OVARIAN CYST, LEFT SIDE 07/25/2016 NINO WINKLER MD Ot R10.11 RIGHT UPPER QUADRANT PAIN 07/25/2016 NINO WINKLER MD Ot R11.2 NAUSEA WITH VOMITING, UNSPECIFIED 07/25/2016 INOCENCIO LEMUS, WATSON Ot R10.31 RIGHT LOWER QUADRANT PAIN 07/25/2016 WATSON PAINTER MD Ot R10.32 LEFT LOWER QUADRANT PAIN 07/26/2016 NINO WINKLER MD Ot E11.9 TYPE 2 DIABETES MELLITUS WITHOUT COMPLIC 07/26/2016 NINO WINKLER MD Ot N83.292 OTHER OVARIAN CYST, LEFT SIDE 07/26/2016 NINO WINKLER MD Ot R10.11 RIGHT UPPER QUADRANT PAIN 07/26/2016 NINO WINKLER MD Ot R11.2 NAUSEA WITH VOMITING, UNSPECIFIED 07/28/2016 HERSON VENTURA DO S Ot D27.1 BENIGN NEOPLASM OF LEFT OVARY 07/28/2016 HERSON VENTURA DO S Ot E66.9 OBESITY, UNSPECIFIED 07/28/2016 HRESON VENTURA DO Ot K81.1 CHRONIC CHOLECYSTITIS 07/28/2016 HERSON VENTURA DO Ot N83.02 FOLLICULAR CYST OF LEFT OVARY 07/28/2016 HERSON VENTURA DO Ot 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 07/28/2016 HERSON VENTURA DO S Ot Z68.41 BODY MASS INDEX (BMI) 40.0-44.9, ADULT 07/30/2016 NINO WINKLER MD Ot G89.18 OTHER ACUTE POSTPROCEDURAL PAIN 07/30/2016 NINO WINKLER MD Ot R05 COUGH 07/30/2016 NINO WINKLER MD Ot R06.02 SHORTNESS OF BREATH 07/30/2016 NINO WINKLER MD Ot Z79.899 OTHER PRISON (CURRENT) DRUG THERAPY 07/30/2016 NINO WINKLER MD, Ot Z90.49 ACQUIRED ABSENCE OF OTHER SPECIFIED PART 07/30/2016 NINO WINKLER MD, Ot Z90.721 ACQUIRED ABSENCE OF OVARIES, UNILATERAL 08/01/2016 LORENZO LEON, HERSON S Ot D27.1 BENIGN NEOPLASM OF LEFT OVARY 08/01/2016 LORENZO DO, HERSON S Ot E66.9 OBESITY, UNSPECIFIED 08/01/2016 FENECH DO, HERSON S Ot K81.1 CHRONIC CHOLECYSTITIS 08/01/2016 LORENZO DO, HERSON S Ot N83.02 FOLLICULAR CYST OF LEFT OVARY 08/01/2016 FENECH DO, HERSON S Ot 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 08/01/2016 LORENZO LEON, HERSON S Ot Z68.41 BODY MASS INDEX (BMI) 40.0-44.9, ADULT 08/03/2016 LORENZO DO, HERSON S Ot D27.1 BENIGN NEOPLASM OF LEFT OVARY 08/03/2016 LORENZO DO, HERSON S Ot E66.9 OBESITY, UNSPECIFIED 08/03/2016 IWONAECH DO, HERSON S Ot K81.1 CHRONIC CHOLECYSTITIS 08/03/2016 LORENZO DO, HERSON S Ot N83.02 FOLLICULAR CYST OF LEFT OVARY 08/03/2016 LORENZO DO, HERSON S Ot 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 08/03/2016 LORENZO DO, HERSON S Ot Z68.41 BODY MASS INDEX (BMI) 40.0-44.9, ADULT 08/05/2016 WATSON PAINTER MD Ot R10.31 RIGHT LOWER QUADRANT PAIN 08/05/2016 WATSON PAINTER MD Ot R10.32 LEFT LOWER QUADRANT PAIN 08/08/2016 WATSON PAINTER MD Ot R10.11 RIGHT UPPER QUADRANT PAIN 08/08/2016 WATSON PAINTER MD Ot R10.32 LEFT LOWER QUADRANT PAIN 08/09/2016 LORENZO LEON HERSON S Ot D27.1 BENIGN NEOPLASM OF LEFT OVARY 08/09/2016 LORENZO DO, HERSON S Ot E66.9 OBESITY, UNSPECIFIED 08/09/2016 FENECH DO, HERSON S Ot K81.1 CHRONIC CHOLECYSTITIS 08/09/2016 FENDIONNA DO, HERSON S Ot N83.02 FOLLICULAR CYST OF LEFT OVARY 08/09/2016 HERSON VENTURA DO Ot 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 08/09/2016 HERSON VENTURA DO Ot Z68.41 BODY MASS INDEX (BMI) 40.0-44.9, ADULT 09/07/2016 SARAHI ERVIN JAIL KEEPER Ot R10.11 RIGHT UPPER QUADRANT PAIN 09/07/2016 QAMAR GODOY JAIL KEEPER Ot N64.4 MASTODYNIA 09/07/2016 SARAHI ERVIN JAIL KEEPER Ot S89.92XA UNSPECIFIED INJURY OF LEFT LOWER LEG, IN 09/07/2016 SARAHI ERVIN JAIL KEEPER Ot X58.XXXA EXPOSURE TO OTHER SPECIFIED FACTORS, INI 09/07/2016 SARAHI ERVIN JAIL KEEPER Ot Y99.8 OTHER EXTERNAL CAUSE STATUS 09/07/2016 WATSON PAINTER MD Ot R10.11 RIGHT UPPER QUADRANT PAIN 09/07/2016 WATSON PAINTER MD Ot R10.32 LEFT LOWER QUADRANT PAIN 09/07/2016 WATSON PAINTER MD Ot R10.31 RIGHT LOWER QUADRANT PAIN 09/07/2016 WATSON PAINTER MD Ot R10.32 LEFT LOWER QUADRANT PAIN 09/21/2016 LYSSA MILES JAIL KEEPER Ot K21.9 GASTRO-ESOPHAGEAL REFLUX DISEASE WITHOUT 11/17/2016 SARAHI ERVIN JAIL KEEPER Ot R10.11 RIGHT UPPER QUADRANT PAIN 11/17/2016 QAMAR GODOY JAIL KEEPER Ot N64.4 MASTODYNIA 11/17/2016 SARAHI ERVIN JAIL KEEPER Ot S89.92XA UNSPECIFIED INJURY OF LEFT LOWER LEG, IN 11/17/2016 SARAHI ERVIN JAIL KEEPER Ot X58.XXXA EXPOSURE TO OTHER SPECIFIED FACTORS, INI 11/17/2016 SARAHI ERVIN JAIL KEEPER Ot Y99.8 OTHER EXTERNAL CAUSE STATUS 11/17/2016 WATSON PAINTER MD Ot R10.11 RIGHT UPPER QUADRANT PAIN 11/17/2016 WATSON PAINTER MD Ot R10.32 LEFT LOWER QUADRANT PAIN 11/17/2016 WATSON PAINTER MD Ot R10.31 RIGHT LOWER QUADRANT PAIN 11/17/2016 WATSON PAINTER MD Ot R10.32 LEFT LOWER QUADRANT PAIN 11/17/2016 LYSSA MILES JAIL KEEPER Ot K21.9 GASTRO-ESOPHAGEAL REFLUX DISEASE WITHOUT 11/17/2016 WATSON PAINTER MD, Ot E66.01 MORBID (SEVERE) OBESITY DUE TO EXCESS CA 11/17/2016 WATSON PAINTER MD Ot Z01.81 2 ENCOUNTER FOR PREPROCEDURAL LABORATORY E 11/18/2016 WATSON PAINTER MD, Ot E66.01 MORBID (SEVERE) OBESITY DUE TO EXCESS CA 11/18/2016 WATSON PAINTER MD, Ot E78.5 HYPERLIPIDEMIA, UNSPECIFIED 11/18/2016 WATSON PAINTER MD, Ot K21.9 GASTRO-ESOPHAGEAL REFLUX DISEASE WITHOUT 11/18/2016 WATSON PAINTER MD Ot M19.91 PRIMARY OSTEOARTHRITIS, UNSPECIFIED SITE 11/18/2016 WATSON PAINTER MD, Ot Z68.41 BODY MASS INDEX (BMI) 40.0-44.9, ADULT 11/24/2016 WATSON PAINTER MD, Ot E66.01 MORBID (SEVERE) OBESITY DUE TO EXCESS CA 11/24/2016 WATSON PAINTER MD, Ot Z01.81 2 ENCOUNTER FOR PREPROCEDURAL LABORATORY E 05/20/2017 NINO LAZCANO 840.8 SPRAIN OF OTHER SPECIFIED SITES OF SHOULDER AND UPPER ARM 05/20/2017 NINO LAZCANO S43.492A OTHER SPRAIN OF LEFT SHOULDER JOINT, INITIAL ENCOUNTER 06/20/2017 JEREMY MAC MD Ot E11. 9 [...] OF UR 06/20/2017 JEREMY MAC MD Ot Z87. 59 PERSONAL HISTORY OF COMP OF PREG, CHLDBR 06/20/2017 JEREMY MAC MD Ot Z90. 49 ACQUIRED ABSENCE OF OTHER SPECIFIED PART 06/20/2017 JEREMY MAC MD Ot Z90.710 ACQUIRED ABSENCE OF BOTH CERVIX AND UTER 06/20/2017 JEREMY MAC MD Ot Z98. 51 TUBAL LIGATION STATUS 06/20/2017 JEREMY MAC MD Ot Z98. 84 BARIATRIC SURGERY STATUS 06/20/2017 SARAHI ERVIN JAIL KEEPER Ot R10.11 RIGHT UPPER QUADRANT PAIN 06/20/2017 JAYNE QAMAR A JAIL KEEPER Ot N64.4 MASTODYNIA 06/20/2017 SARAHI ERVIN JAIL KEEPER Ot S89.92XA UNSPECIFIED INJURY OF LEFT LOWER LEG, IN 06/20/2017 SARAHI ERVIN JAIL KEEPER Ot X58.XXXA EXPOSURE TO OTHER SPECIFIED FACTORS, INI 06/20/2017 SARAHI ERVIN JAIL KEEPER Ot Y99.8 OTHER EXTERNAL CAUSE STATUS 06/20/2017 WATSON PAINTER MD Ot R10.11 RIGHT UPPER QUADRANT PAIN 06/20/2017 WATSON PAINTER MD Ot R10.32 LEFT LOWER QUADRANT PAIN 06/20/2017 WATSON PAINTER MD Ot R10.31 RIGHT LOWER QUADRANT PAIN 06/20/2017 WATSON PAINTER MD Ot R10.32 LEFT LOWER QUADRANT PAIN 06/20/2017 LYSSA MILES JAIL KEEPER Ot K21.9 GASTRO-ESOPHAGEAL REFLUX DISEASE WITHOUT 06/20/2017 [...] OF UR 06/22/2017 JEREMY MAC MD Ot Z87. 59 PERSONAL HISTORY OF COMP OF PREG, CHLDBR 06/22/2017 JEREMY MAC MD Ot Z90. 49 ACQUIRED ABSENCE OF OTHER SPECIFIED PART 06/22/2017 JEREMY MAC MD Ot Z90.710 ACQUIRED ABSENCE OF BOTH CERVIX AND UTER 06/22/2017 JEREMY MAC MD Ot Z98. 51 TUBAL LIGATION STATUS 06/22/2017 JEREMY MAC MD Ot Z98. 84 BARIATRIC SURGERY STATUS 07/24/2017 WATSON PAINTER MD, Ot Z01.81 8 ENCOUNTER FOR OTHER PREPROCEDURAL EXAMIN 07/24/2017 WATSON PAINTER MD, Ot Z12.11 ENCOUNTER FOR SCREENING FOR MALIGNANT NE 07/24/2017 WATSON PAINTER MD Ot Z80.0 FAMILY HISTORY OF MALIGNANT NEOPLASM OF 07/25/2017 WATSON PAINTER MD, Ot Z01.81 8 ENCOUNTER FOR OTHER PREPROCEDURAL EXAMIN 07/25/2017 WATSON PAINTER MD, Ot Z12.11 ENCOUNTER FOR SCREENING FOR MALIGNANT NE 07/25/2017 WATSON PAINTER MD Ot Z80.0 FAMILY HISTORY OF MALIGNANT NEOPLASM OF 07/26/2017 SARAHI ERVIN JAIL KEEPER Ot R10.11 RIGHT UPPER QUADRANT PAIN 07/26/2017 QAMAR GODOY JAIL KEEPER Ot N64.4 MASTODYNIA 07/26/2017 SARAHI ERVIN JAIL KEEPER Ot S89.92XA UNSPECIFIED INJURY OF LEFT LOWER LEG, IN 07/26/2017 SARAHI ERVIN JAIL KEEPER Ot X58.XXXA EXPOSURE TO OTHER SPECIFIED FACTORS, INI 07/26/2017 SARAHI ERVIN JAIL KEEPER Ot Y99.8 OTHER EXTERNAL CAUSE STATUS 07/26/2017 WATSON PAINTER MD Ot R10.11 RIGHT UPPER QUADRANT PAIN 07/26/2017 WATSON PAINTER MD, Ot R10.32 LEFT LOWER QUADRANT PAIN 07/26/2017 WATSON PAINTER MD Ot R10.31 RIGHT LOWER QUADRANT PAIN 07/26/2017 WATSON PAINTER MD Ot R10.32 LEFT LOWER QUADRANT PAIN 07/26/2017 LYSSA MILES JAIL KEEPER Ot K21.9 GASTRO-ESOPHAGEAL REFLUX DISEASE WITHOUT 07/26/2017 WATSON PAINTER MD, Ot E66.01 MORBID (SEVERE) [...] MALIG NEOPLASM OF TRAC 07/27/2017 WATSON PAINTER MD, Ot K64.0 FIRST DEGREE HEMORRHOIDS 07/27/2017 WATSON PAINTER MD, Ot Z12.11 ENCOUNTER FOR SCREENING FOR MALIGNANT NE 07/27/2017 WATSON PAINTER MD, Ot Z80.0 FAMILY HISTORY [...] HISTORY OF MALIG NEOPLASM OF TRAC 09/08/2017 Brown, Gunner W 878.6 OPEN WOUND OF VAGINA, WITHOUT MENTION OF COMPLICATION 09/08/2017 Brown, Gunner W S31.41 LACERATION WITHOUT FOREIGN BODY OF VAGINA AND VULVA 09/08/2017 BrownChadwickUgnner W 599.0 URINARY TRACT INFECTION, SITE NOT SPECIFIED 09/08/2017 Brown, Gunner W 878.6 OPEN WOUND OF VAGINA, WITHOUT MENTION OF COMPLICATION 09/08/2017 BrownChadwickGunner W N39.0 URINARY TRACT INFECTION, SITE NOT SPECIFIED 09/08/2017 Gunner Cuevas W S31.41 LACERATION WITHOUT FOREIGN BODY OF VAGINA AND VULVA 09/08/2017 Gunner Cuevas 599.0 URINARY TRACT INFECTION, SITE NOT SPECIFIED 09/08/2017 Gunner Cuevas 878.4 OPEN WOUND OF VULVA, WITHOUT MENTION OF COMPLICATION 09/08/2017 Gunner Cuevas W 878.6 OPEN WOUND OF VAGINA, WITHOUT MENTION OF COMPLICATION 09/08/2017 Gunner Cuevas N39.0 URINARY TRACT INFECTION, SITE NOT SPECIFIED 09/08/2017 Gunner Cuevas S31.41 LACERATION WITHOUT FOREIGN BODY OF VAGINA AND VULVA 09/08/2017 Gunner Cuevas S31.41XA LACERATION W/O FOREIGN BODY OF VAGINA [...] OF OTHER SPECIFIED PART 02/19/2018 JAELYN MORALES JAIL KEEPER Ot Z90.710 ACQUIRED ABSENCE OF BOTH CERVIX [...] Z87.19 PERSONAL HISTORY OF OTHER DISEASES OF 02/21/2018 JAELYN MORALES APRN Ot Z87.440 PERSONAL [...] APRN Ot J10 .1 FLU DUE TO OTH IDENT INFLUENZA VIRUS W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
--- NOTE | 2019-09-29 12:07 | NUR ---
TESTING FOR COVID DONE.
[2019-09-29] MEDS ORDERED: ASPIRIN 81 MG CHEW (CHILDREN'S ASA) PO ONE (12:15)
[2019-09-29] MEDS ORDERED: NITROGLYCERIN 0.4 MG SL TABS BTL 25'S SL PRN (12:15)
--- NOTE | 2019-09-29 12:15 | ED Chest Pain ---
General Chief Complaint: Chest Pain Stated Complaint: SOB/COVID EXPOSURE Nursing Triage Note: ARRIVED VIA AMB TO COVID ROOM 9 WITH COMPLAINTS OF CHEST PAIN AND SOA STARTING YESTERDAY. STATES SHE THINKS SHE WAS EXPOSED TO COVID AT [facility] WHILE AT WORK. Nursing Sepsis Screen: No Definite Risk Source: patient Exam Limitations: no limitations History of Present Illness Date Seen by Provider: Sep 29, 2019 Time Seen by Provider: 11:46 Initial Comments Patient presents ER by private conveyance from home with chief complaint of feeling some left-sided chest pain worse on deep inspiration with no cough but some subjective shortness of breath. No fevers or chills even subjectively. She says she has a bit of a tremor. She recently found out that someone at her work at [employer] has COVID-19 positive and became concerned for herself. She has no history of heart disease lung disease. She does smoke cigarettes and occasional drinks alcohol. She's had diarrhea since yesterday. She said that pain in her chest, started yesterday but was mild and today progressively got worse. She does not have any significant medical history and does not follow with a doctor. She has no history of hyperlipidemia, hypertension, diabetes. She says her mom and sister both of them to the ER and received nitroglycerin for complaints of chest pain that she's not aware that either of them have an actual diagnosis of heart attack or stents. Allergies and Home Medications Allergies Coded Allergies: No Known Drug Allergies (Unverified , 11/10/16) Home Medications Cephalexin 500 Mg Capsule, 500 MG PO QID Prescribed by: NINO SUMNER on 02/21/19 4542 Cyclobenzaprine HCl 10 Mg Tablet, 10 MG PO TID PRN for SPASMS Prescribed by: NINO SUMNER on 06/25/19 1016 Hydroxyzine HCl 25 Mg Tablet, 25 MG PO Q4H Prescribed by: JAELYN MORALES on 02/23/19 1508 Naproxen 500 Mg Tablet, 500 MG PO BID Prescribed by: JEREMY MAC on 09/29/19 1429 Patient Home Medication List Home Medication List Reviewed: Yes Review of Systems Review of Systems Constitutional: No chills, No fever, No malaise EENTM: No Blurred Vision, No Double Vision Respiratory: Cough, Shortness of Air Cardiovascular: Chest Pain; Denies Lightheadedness Gastrointestinal: Denies Constipated, Denies Diarrhea, Denies Nausea Genitourinary: Denies Burning, Denies Discharge Musculoskeletal: No back pain, No joint pain Skin: No pruritus, No rash Psychiatric/Neurological: Denies Anxiety, Denies Depressed Past Ecdkzdh-Lkrzcs-Epxwsn Hx Patient Social History Alcohol Use: Occasionally Uses Alcohol Beverage of Choice: Beer Recreational Drug Use: No Smoking Status: Current Everyday Smoker Type Used: Cigarettes 2nd Hand Smoke Exposure: No Recent Foreign Travel: No Contact w/Someone Who Travel: No Recent Infectious Disease Expo: No Recent Hopitalizations: No Immunizations Up To Date Tetanus Booster (TDap): Unknown Date of Influenza Vaccine: Jan 25, 2015 Seasonal Allergies Seasonal Allergies: No Past Medical History Surgeries: Yes (LEFT KNEE X2 SCOPE, RIGHT KNEE SCOPE, c/s x4, gastric sleeve, TUMMY TUCK) Appendectomy, Section, Gallbladder, Hysterectomy, Oophorectomy, Orthopedic, Tubal Ligation Respiratory: No Currently Using CPAP: No Currently Using BIPAP: No Cardiac: Yes High Cholesterol Neurological: No Reproductive Disorders: No Female Reproductive Disorders: Denies 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 Sexually Transmitted Disease: No HIV/AIDS: No Genitourinary: Yes Kidney Infection, Bladder Infection, Kidney Stones, UTI-Chronic Gastrointestinal: Yes Chronic Diarrhea, Irritable Bowel Musculoskeletal: Yes Arthritis Endocrine: Yes Diabetes, Non-Insulin dep HEENT: No Loss of Vision: Bilateral Hearing Impairment: Denies Cancer: No Psychosocial: Yes Anxiety Integumentary: Yes Recent Skin Changes Blood Disorders: No Adverse Reaction/Blood Tranf: No Family Medical History No Pertinent Family Hx Physical Exam Vital Signs Vital Signs - First Documented 09/29/19 11:45 Temp 36.8 Pulse 64 Resp 16 B/P (MAP) 108/68 (81) Pulse Ox 99 O2 Delivery Room Air Capillary Refill : Less Than 3 Seconds Height, Weight, BMI Height: 5'2.00" Weight: 165lbs. 0oz. 74.678539cu; 31.00 BMI Method:Stated General Appearance: WD/WN, Anxious HEENT: PERRL/EOMI, Pharynx Normal, Moist Mucous Membranes Neck: Full Range of Motion, Normal Inspection, Supple Respiratory: No Chest Non Tender (Chest pain reproducible to direct palpation.); Lungs Clear, Normal Breath Sounds, No Accessory Muscle Use, No Respiratory Distress Cardiovascular: Regular Rate, Rhythm, No Murmur, Normal Peripheral Pulses Gastrointestinal: Normal Bowel Sounds, No Organomegaly, Non Tender, Soft Extremity: Normal Capillary Refill, Normal Inspection, Non Tender, No Calf Tenderness, No Pedal Edema 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: Alert, Oriented x3, No Motor/Sensory Deficits Skin: Normal Color, Warm/Dry Progress/Results/Core Measures Results/Orders Lab Results Laboratory Tests Test 09/29/19 12:00 09/29/19 12:07 Range/Units White Blood Count 6.4 4.3-11.0 10^3/uL Red Blood Count 4.49 4.35-5.85 10^6/uL Hemoglobin 12.7 11.5-16.0 G/DL Hematocrit 38 35-52 % Mean Corpuscular Volume 84 80-99 FL Mean Corpuscular Hemoglobin 28 25-34 PG Mean Corpuscular Hemoglobin Concent 34 32-36 G/DL Red Cell Distribution Width 14.6 H 10.0-14.5 % Platelet Count 258 130-400 10^3/uL Mean Platelet Volume 9.7 7.4-10.4 FL Neutrophils (%) (Auto) 46 42-75 % Lymphocytes (%) (Auto) 41 12-44 % Monocytes (%) (Auto) 9 0-12 % Eosinophils (%) (Auto) 4 0-10 % Basophils (%) (Auto) 0 0-10 % Neutrophils # (Auto) 2.9 1.8-7.8 X 10^3 Lymphocytes # (Auto) 2.6 1.0-4.0 X 10^3 Monocytes # (Auto) 0.6 0.0-1.0 X 10^3 Eosinophils # (Auto) 0.2 0.0-0.3 10^3/uL Basophils # (Auto) 0.0 0.0-0.1 10^3/uL Erythrocyte Sedimentation Rate 17 0-20 MM/HR Prothrombin Time 13.7 12.2-14.7 SEC INR Comment 1.0 0.8-1.4 Activated Partial Thromboplast Time 33 24-35 SEC Sodium Level 137 135-145 MMOL/L Potassium Level 3.7 3.6-5.0 MMOL/L Chloride Level 108 H 98-107 MMOL/L Carbon Dioxide Level 20 L 21-32 MMOL/L Anion Gap 9 5-14 MMOL/L Blood Urea Nitrogen 12 7-18 MG/DL Creatinine 0.64 0.60-1.30 MG/DL Estimat Glomerular Filtration Rate > 60 BUN/Creatinine Ratio 19 Glucose Level 80 70-105 MG/DL Calcium Level 8.9 8.5-10.1 MG/DL Corrected Calcium 8.9 8.5-10.1 MG/DL Magnesium Level 1.9 1.6-2.4 MG/DL Total Bilirubin 0.2 0.1-1.0 MG/DL Aspartate Amino Transf (AST/SGOT) 16 5-34 U/L Alanine Aminotransferase (ALT/SGPT) 10 0-55 U/L Alkaline Phosphatase 51 40-136 U/L Myoglobin 15.3 10.0-92.0 NG/ML Troponin I < 0.028 <0.028 NG/ML C-Reactive Protein High Sensitivity 0.20 0.00-0.50 MG/DL Total Protein 7.3 6.4-8.2 GM/DL Albumin 4.0 3.2-4.5 GM/DL My Orders Orders - ESTEFANIAJEREMY J Cbc With Automated Diff (09/29/19 12:06) Magnesium (09/29/19 12:06) Chest 1 View, Ap/Pa Only (09/29/19 12:06) Ekg Tracing (09/29/19 12:06) Comprehensive Metabolic Panel (09/29/19 12:06) Myoglobin Serum (09/29/19 12:06) Protime With Inr (09/29/19 12:06) Partial Thromboplastin Time (09/29/19 12:06) O2 (09/29/19 12:06) Monitor-Rhythm Ecg Trace Only (09/29/19 12:06) Lipid Panel (09/30/19 06:00) Ed Iv/Invasive Line Start (09/29/19 12:06) Troponin I (09/29/19 12:06) Nitroglycerin 0.4 Mg Btl 25's (Nitrostat (09/29/19 12:15) Aspirin Chewable Tablet (Baby Aspirin Ch (09/29/19 12:15) Hs C Reactive Protein (09/29/19 12:06) Erythrocyte Sedimentation Rate (09/29/19 12:06) Coronavirus Sars-Cov-2 So 2018 (09/29/19 12:06) Ondansetron Injection (Zofran Injectio (09/29/19 12:30) Lidocaine 2% Viscous 15 Ml (Xylocaine Vi (09/29/19 12:30) Antacid Suspension (Mylanta Suspension (09/29/19 12:30) Pantoprazole Injection (Protonix Injecti (09/29/19 12:30) Troponin I (09/29/19 15:00) Ketorolac Injection (Toradol Injection) (09/29/19 14:00) Medications Given in ED Current Medications Medications Dose Ordered Sig/Rachelle Route Start Time Stop Time Status Last Admin Dose Admin Al Hydrox/Mg Hydrox/Simethicone 30 ml ONCE ONCE PO 09/29/19 12:30 09/29/19 12:31 DC 09/29/19 12:34 30 ML Aspirin 324 mg ONCE ONCE PO 09/29/19 12:15 09/29/19 12:16 DC 09/29/19 12:15 324 MG Ketorolac Tromethamine 30 mg ONCE ONCE IVP 09/29/19 14:00 09/29/19 14:01 DC 09/29/19 14:08 30 MG Lidocaine HCl 15 ml ONCE ONCE PO 09/29/19 12:30 09/29/19 12:31 DC 09/29/19 12:34 15 ML Ondansetron HCl 4 mg ONCE ONCE IVP 09/29/19 12:30 09/29/19 12:31 DC 09/29/19 12:30 4 MG Pantoprazole 40 mg ONCE ONCE IV 09/29/19 12:30 09/29/19 12:31 DC 09/29/19 12:41 40 MG Vital Signs/I&O 09/29/19 11:45 Temp 36.8 Pulse 64 Resp 16 B/P (MAP) 108/68 (81) Pulse Ox 99 O2 Delivery Room Air Blood Pressure Mean: 81 Progress Progress Note #1: Time: 12:11 Progress Note She has no other risk factors for coronary disease but we'll get a troponin and a serial troponin at the first 1 is negative. If her initial troponin is negative she would have a heart score of 2 points. Low risk; 0.9-1.7% 30-day MACE. If a 3 hour troponin is negative we'll have her follow-up outpatient with cardiology. Rates the chest pain as a 6 out of 10 however her blood pressure is systolic 107 7 nitroglycerin with some aspirin and GI cocktail. Pantoprazole. Repeat troponin at 3 hours and if negative, discharge home with outpatient follow-up. Pulmonary embolism less likely. Well score: 0.0 points; Low risk group: 1.3% chance of PE in an ED population. PERC 0 criteria. No need for further workup, as <2% chance of PE. If no criteria are positive and clinicians pre-test probability is <15%, PERC Rule criteria are satisfied. We will establish COVID-19. She does not look like she is going to meet any inpatient criteria as she has aseptic vital signs and reproducible chest pain to direct palpation or deep inspiration. Likely she will chest wall pain and/or anxiety. Plan will be to quarantine at home. Progress Note #2: Time: 14:25 Progress Note Patient does not think the GI cocktail helped her pain much but just sitting after a while her pain has alleviated some. Her initial troponin was negative so we offered some Toradol for what I suspect is a pleuritic type chest pain. COVID-19 swab was obtained. Serial troponin at 1300 would be 3 hours post initial troponin and 5 hours after the initiation of her latest chest pain bout. Progress Note #3: Time: 14:38 Progress Note Plan to check on the patient to see if her pain had improved after the Toradol about 20-30 minutes ago. The patient was sleeping soundly with good vital signs. Initial ECG Impression Date: Sep 29, 2019 Initial ECG Impression Time: 11:48 Initial ECG Rate: 58 Initial ECG Rhythm: Normal Sinus Initial ECG Intervals: Normal Initial ECG Impression: Normal Initial ECG Comparisson: Unchanged Comment Normal sinus rhythm without clinically relevant ST elevation or depression. Diagnostic Imaging Diagonstic Imaging: Xray Plain Films/CT/US/NM/MRI: chest (1v) Comments [facility]. [place], [place] NAME: FLAKO JEREZ Cherry [facility] REC#: [id number] PT STATUS: REG ER : 1975 PHYSICIAN: JEREMY MAC MD ADMIT DATE: 09/29/19/ER Signed Date of Exam:09/29/19 CHEST 1 VIEW, AP/PA ONLY Indication: Shortness of air and COVID exposure. Time of Exam: 12:52 PM Comparison is made with prior chest 07/30/2016. The heart size is normal. The pulmonary vascularity is unremarkable. The lungs are clear. No infiltrate, effusion or pneumothorax is detected. Impression: No acute cardiopulmonary process is detected. Dictated by: Dictated on workstation # [id number] Dict: 09/29/19 1255 Trans: 09/29/19 1313 [facility] [id number] Interpreted by: DIGNA PAULSON MD Electronically signed by: DIGNA PAULSON MD 09/29/19 1313 Reviewed: Reviewed by Me Departure Impression Primary Impression: Chest pain Qualified Codes: R07.9 - Chest pain, unspecified Disposition: HOME, SELF-CARE Condition: Stable Departure-Patient Inst. Referrals: [facility] (PCP/Family) Primary Care Physician MARLI CONTRERAS MD Patient Instructions: Chest Pain (DC) Add. 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 Monday, tomorrow call Dr. Contreras and request follow-up appointment in the clinic in the next week or so. You will have a result to your COVID-19 testing in about 1-2 days and we'll call you if you have a positive result. You may return to work when you have gone 72 hours without symptoms of fever, cough, body aches or chest pain. You may use Tylenol 1000 mg every 8 hours as necessary for discomfort. Naproxen 500 mg once or twice a day as necessary for chest pain. If your chest pains worsening or trouble with worsening shortness of breath then you should return to the ER. All discharge instructions reviewed with patient and/or family. Voiced understanding. Scripts Naproxen (Naprosyn) 500 Mg Tablet 500 MG PO BID for 14 Days, #30 TAB 0 Refills Prov: JEREMY MAC 09/29/19 Work/School Note: Work Release Form Date Seen in the Emergency Department: Sep 29, 2019 Return to Work: Oct 07, 2019 Restrictions: No Restrictions Other Restrictions Listed Below: You may return to work if you are symptom- free for 72 hours. Copy Copies To 1: MARLI CONTRERAS MD, TITUS J Sep 29, 2019 12:14
--- NOTE | 2019-09-29 12:18 | NUR ---
Pt's blood pressure does not warrant nitro at this time.
[2019-09-29] MEDS ORDERED: ANTACID SUSP 30 ML UDC (MYLANTA) PO ONE (12:30)
[2019-09-29] MEDS ORDERED: ONDANSETRON 4 MG/2 ML (SDV) Z0FRAN IVP ONE (12:30)
[2019-09-29] MEDS ORDERED: LIDOCAINE 2% VISCOUS 15 ML UDC PO ONE (12:30)
[2019-09-29] MEDS ORDERED: PANTOPRAZOLE 40 MG (PROTONIX) VIAL IV ONE (12:30)
--- NOTE | 2019-09-29 12:56 | Diagnostic Imaging Report ---
Indication: Shortness of air and COVID exposure. Time of Exam: 12:52 PM Comparison is made with prior chest 07/30/2016. The heart size is normal. The pulmonary vascularity is unremarkable. The lungs are clear. No infiltrate, effusion or pneumothorax is detected. Impression: No acute cardiopulmonary process is detected. Dictated by: Dictated on workstation # [id number]
[2019-09-29 13:08] LABS: BASOPHILS % (AUTO) 0 % (0-10); EOSINOPHILS # (AUTO) 0.2 10^3/uL (0.0-0.3); EOSINOPHILS % (AUTO) 4 % (0-10); HEMATOCRIT 38 % (35-52); HEMOGLOBIN 12.7 G/DL (11.5-16.0); LYMPHOCYTES # (AUTO) 2.6 X 10^3 (1.0-4.0); LYMPHOCYTES % (AUTO) 41 % (12-44); MEAN CORPUSCULAR HEMOGLOBIN 28 PG (25-34); MEAN CORPUSCULAR HGB CONC 34 G/DL (32-36); MEAN CORPUSCULAR VOLUME 84 FL (80-99); MEAN PLATELET VOLUME 9.7 FL (7.4-10.4); MONOCYTES # (AUTO) 0.6 X 10^3 (0.0-1.0); MONOCYTES % (AUTO) 9 % (0-12); NEUTROPHILS # (AUTO) 2.9 X 10^3 (1.8-7.8); NEUTROPHILS % (AUTO) 46 % (42-75); PLATELET COUNT 258 10^3/uL (130-400); RED CELL DISTRIBUTION WIDTH 14.6 % (10.0-14.5); WHITE BLOOD COUNT 6.4 10^3/uL (4.3-11.0)
[2019-09-29 13:21] LABS: PROTHROMBIN TIME PATIENT 13.7 SEC (12.2-14.7)
[2019-09-29 13:30] LABS: ALANINE AMINOTRANSFERASE 10 U/L (0-55); ALKALINE PHOSPHATASE 51 U/L (40-136); BILIRUBIN,TOTAL 0.2 MG/DL (0.1-1.0); BUN/CREATININE RATIO 19; CALCIUM 8.9 MG/DL (8.5-10.1); CARBON DIOXIDE 20 MMOL/L (21-32); CHLORIDE 108 MMOL/L (98-107); CREATININE SERUM 0.64 MG/DL (0.60-1.30); GFR ESTIMATED > 60; GLUCOSE 80 MG/DL (70-105); MAGNESIUM 1.9 MG/DL (1.6-2.4); POTASSIUM 3.7 MMOL/L (3.6-5.0); SODIUM 137 MMOL/L (135-145); TOTAL PROTEIN 7.3 GM/DL (6.4-8.2)
[2019-09-29] MEDS ORDERED: KETOROLAC 30 MG/ML VIAL IVP ONE (14:00)
[2019-09-29] MEDS ORDERED: NAPR-1071 PO (14:29)
--- NOTE | 2019-09-29 14:57 | NUR ---
PT RESTING IN BED. BLOOD DRAWN FOR REPEAT TROPONIN. PT INFORMED OF THE TIME FRAME FOR EXPECTED RESULTS. PT VOICED UNDERSTANDING AND STATES THAT THERE IS NOTHING SHE NEEDS AT THIS TIME.
--- NOTE | 2019-09-29 15:44 | NUR ---
PT RESTING IN BED. PT STATES THERE IS NOTHING SHE NEEDS AT THIS TIME.
[2019-09-29 15:58] VITALS: BP 103/63
== END 2019-09-29 15:58 | disposition home or self-care (01) ==
LOC: EDUNIT# 11:40 → ER 11:41
DX: R06.02 Shortness of breath (principal); R05 Cough; E78.00 Pure hypercholesterolemia, unspecified; K58.0 Irritable bowel syndrome with diarrhea; F17.210 Nicotine dependence, cigarettes, uncomplicated; M19.90 Unspecified osteoarthritis, unspecified site; E11.9 Type 2 diabetes mellitus without complications; F41.9 Anxiety disorder, unspecified; Z20.828 Contact with and (suspected) exposure to other viral communicable diseases
CPT/HCPCS: 71045; 80053; 83735; 83874; 84484; 85025; 85610; 85652; 85730; 86141; 93005; 93041; 99284; U0002; 36415; 87635

== ENCOUNTER 2020-06-01 02:39 | Emergency (ER) | payer SELFPAY ==
[~2020-06-01] VITALS: Ht 157.4 cm; Wt 90.0 kg
[~2020-06-01 02:39] MED LIST changes: -CIPR500T4 PO; +CIPR500T5 PO
[2020-06-01] MEDS ORDERED: LACTATED RINGERS 1,000 ML IV ONE (03:21)
[2020-06-01] MEDS ORDERED: ASPIRIN 81 MG CHEW (CHILDREN'S ASA) ONE (03:28)
[2020-06-01] MEDS ORDERED: KETOROLAC 30 MG/ML VIAL ONE (03:28)
[2020-06-01 03:42] LABS: BASOPHILS # (AUTO) 0.1 10^3/uL (0.0-0.1); BASOPHILS % (AUTO) 1 % (0-10); EOSINOPHILS # (AUTO) 0.3 10^3/uL (0.0-0.3); EOSINOPHILS % (AUTO) 4 % (0-10); HEMATOCRIT 37 % (35-52); HEMOGLOBIN 12.3 g/dL (11.5-16.0); LYMPHOCYTES # (AUTO) 3.5 10^3/uL (1.0-4.0); LYMPHOCYTES % (AUTO) 44 % (12-44); MEAN CORPUSCULAR HEMOGLOBIN 28 pg (25-34); MEAN CORPUSCULAR HGB CONC 33 g/dL (32-36); MEAN CORPUSCULAR VOLUME 84 fL (80-99); MEAN PLATELET VOLUME 8.9 fL (9.0-12.2); MONOCYTES # (AUTO) 0.7 10^3/uL (0.0-1.0); MONOCYTES % (AUTO) 9 % (0-12); NEUTROPHILS # (AUTO) 3.4 10^3/uL (1.8-7.8); NEUTROPHILS % (AUTO) 42 % (42-75); PLATELET COUNT 283 10^3/uL (130-400)
[2020-06-01 03:49] LABS: ALBUMIN 3.9 GM/DL (3.2-4.5); CHLORIDE 109 MMOL/L (98-107); POTASSIUM 3.6 MMOL/L (3.6-5.0); SODIUM 138 MMOL/L (135-145)
[2020-06-01 03:50] LABS: CALCIUM 8.6 MG/DL (8.5-10.1)
[2020-06-01 03:51] LABS: GLUCOSE 94 MG/DL (70-105)
[2020-06-01 03:52] LABS: TOTAL PROTEIN 7.7 GM/DL (6.4-8.2)
[2020-06-01 03:53] LABS: BILIRUBIN,URINE NEGATIVE (NEGATIVE); CLARITY,URINE SL CLOUDY; COLOR,URINE YELLOW; GLUCOSE, URINE (UA) NEGATIVE (NEGATIVE); KETONES,URINE NEGATIVE (NEGATIVE); LEUKOCYTE ESTERASE ,URINE NEGATIVE (NEGATIVE); NITRITE,URINE NEGATIVE (NEGATIVE); PROTEIN,URINE NEGATIVE (NEGATIVE)
[2020-06-01 03:53] LABS: BILIRUBIN,TOTAL 0.3 MG/DL (0.1-1.0); CARBON DIOXIDE 20 MMOL/L (21-32)
[2020-06-01 03:55] LABS: ALKALINE PHOSPHATASE 61 U/L (40-136); CREATININE SERUM 0.74 MG/DL (0.60-1.30); GFR ESTIMATED > 60
[2020-06-01 03:56] LABS: BUN/CREATININE RATIO 15
[2020-06-01 03:58] LABS: ALANINE AMINOTRANSFERASE 19 U/L (0-55); MAGNESIUM 2.1 MG/DL (1.6-2.4)
[2020-06-01 03:59] LABS: CREATINE KINASE 114 U/L (29-168)
[2020-06-01] MEDS ORDERED: ASPIRIN 81 MG CHEW (CHILDREN'S ASA) PO ONE (04:00)
[2020-06-01] MEDS ORDERED: KETOROLAC 30 MG/ML VIAL IVP ONE (04:00)
[2020-06-01 04:06] LABS: CREATINE KINASE MB 1.8 NG/ML (<6.6)
[2020-06-01 04:07] LABS: BACTERIA,URINE NEGATIVE /HPF; RBC,URINE RARE /HPF
--- NOTE | 2020-06-01 04:10 | ED Respiratory ---
General Chief Complaint: Respiratory Problems Stated Complaint: COUGH / SOB / TROUBLE BREATHING Source: patient History of Present Illness Date Seen by Provider: Jun 01, 2020 Time Seen by Provider: 03:10 Initial Comments PT ARRIVES VIA POV C/O LEFT LOWER CHEST PAIN X 1 WEEK--PAIN IS WORSE WITH MOVEMENTS OR COUGH OR DEEP BREATHING C/O PRODUCTIVE COUGH WITH GREEN SPUTUM X 1 WEEK C/O SHORTNESS OF BREATH AT TIMES, BUT IS MORE RELATED TO PAINFUL BREATHING MORE THAN ACTUAL SHORT OF BREATH C/O "FEELING HOT AND COLD ALL THE TIME" BUT HAS NOT CHECKED TEMP AT ANY TIME C/O HEADACHE C/O NAUSEA, NO VOMITING C/O DIARRHEA X 2 TODAY NO NASAL CONGESTION NO LOSS OF TASTE OR SMELL NO BODY ACHES NO KNOWN SICK CONTACTS PT WORKS AT [employer], AND WAS WORKING [employer] AND LEFT WORK EARLY [employer] SYMPTOMS ARE NO DIFFERENT TONIGHT HAS NOT SOUGHT CARE UNTIL TONIGHT HAS NOT TAKEN ANYTHING FOR PAIN OR SYMPTOMS AT ANY TIME. NO HISTORY OF SIMILAR, NO HISTORY OF RESPIRATORY OR CARDIAC PROBLEMS PT DOES NOT TAKE ANY MEDICATIONS OF ANY KIND NOW--S/P GASTRIC SLEEVE SURGERY 2017 PCP: [facility] Allergies and Home Medications Allergies Coded Allergies: No Known Drug Allergies (Unverified , 06/01/20) Home Medications Benzonatate 100 Mg Capsule, 200 MG PO TID Prescribed by: TIFFANY FRANCIS on 06/01/20435 Cephalexin 500 Mg Capsule, 500 MG PO QID Prescribed by: NINO SUMNER on 02/21/19 2352 Cyclobenzaprine HCl 10 Mg Tablet, 10 MG PO TID PRN for SPASMS Prescribed by: NINO SUMNER on 06/25/19 1016 Guaifenesin/Dextromethorphan 1 Each Tbmp.12hr, 1 EACH PO BID Prescribed by: TIFFANY FRANCIS on 06/01/20435 Hydroxyzine HCl 25 Mg Tablet, 25 MG PO Q4H Prescribed by: JAELYN MORALES on 02/23/19 1508 Methylprednisolone 4 Mg Tab.ds.pk, 4 MG PO UD PER DOSE PACK INSTRUCTIONS Prescribed by: TIFFANY FRANCIS on 06/01/20435 Naproxen 500 Mg Tablet, 500 MG PO BID Prescribed by: JEREMY MAC on 09/29/19 1429 Oseltamivir Phosphate 75 Mg Cap, 75 MG PO BID Prescribed by: TIFFANY FRANCIS on 06/01/20 0436 Patient Home Medication List Home Medication List Reviewed: Yes Review of Systems Review of Systems Constitutional: see HPI, chills, fever EENTM: no symptoms reported; No nose congestion, No throat pain Respiratory: see HPI, cough, phlegm, short of breath; No wheezing Cardiovascular: see HPI, chest pain; No edema, No palpitations, No syncope Gastrointestinal: see HPI; No abdominal pain; diarrhea; No loss of appetite; nausea; No vomiting Genitourinary: no symptoms reported Musculoskeletal: No back pain Skin: no symptoms reported Psychiatric/Neurological: See HPI, Headache Hematologic/Lymphatic: No Symptoms Reported Immunological/Allergic: no symptoms reported Past Gebatqh-Mtbdtd-Fkthha Hx Past Med/Social Hx: Reviewed and Corrections made Patient Social History Alcohol Use: Denies Use Number of Drinks Today: AA Drug of Choice: DENIES Smoking Status: Never a Smoker 2nd Hand Smoke Exposure: Yes ( USED TO SMOKE--QUIT > 10 YEARS AGO) Recent Hopitalizations: No Immunizations Up To Date Tetanus Booster (TDap): Unknown PED Vaccines UTD: Yes Date of Influenza Vaccine: Jan 25, 2015 Seasonal Allergies Seasonal Allergies: No Past Medical History Surgeries: Yes (L KNEE X2 / R KNEE SCOPE;C/S x4;GASTRIC SLEEVE;TUMMY TUCK;L WRIST;R ELBOW) Abdominal, Appendectomy, Section, Gallbladder, Hysterectomy, Oophorectomy, Orthopedic, Tubal Ligation Respiratory: No Currently Using CPAP: No Currently Using BIPAP: No Cardiac: Yes High Cholesterol Neurological: No Reproductive Disorders: No 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 Sexually Transmitted Disease: No HIV/AIDS: No Genitourinary: Yes Kidney Infection, Bladder Infection, Kidney Stones, UTI-Chronic Gastrointestinal: Yes (S/P APPY, ROSALIO, GASTRIC SLEEVE, TUMMY TUCK) Chronic Diarrhea, Gall Bladder Disease, Irritable Bowel Musculoskeletal: Yes (BILAT KNEE SCOPES; L WRIST; R ELBOW) Arthritis Endocrine: Yes (OBESITY) Diabetes, Non-Insulin dep HEENT: No Loss of Vision: Bilateral Hearing Impairment: Denies Cancer: No Psychosocial: Yes Anxiety Integumentary: No Blood Disorders: No Adverse Reaction/Blood Tranf: No Family Medical History No Pertinent Family Hx ADDIITIONAL SURGICAL/PROCEDURAL HISTORY: -LEFT KNEE ARTHROSCOPY 07/2015 AND 12/2015 -RIGHT KNEE ARTHROSCOPY - X 4 -HYSTERECTOMY 2003 -APPENDECTOMY 2003 -LEFT SALPINGO-OOPHORECTOMY AND CHOLECYSTECTOMY 07/28/2016 -GASTRIC SLEEVE 11/17/2016 -TUMMY TUCK -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 HEMORRHOIDS NOTED OTHERWISE NORMAL Physical Exam Vital Signs - First Documented 06/01/20 03:59 Temp 35.9 Pulse 69 Resp 20 B/P (MAP) 104/75 (85) Pulse Ox 98 Capillary Refill : Height: 5'2.00" Weight: 165lbs. 0oz. 74.266004gp; 31.00 BMI Method:Stated General Appearance: WD/WN, no apparent distress, other (HOLDING LEFT LOWER ANTERIOR CHEST) HEENT: PERRL/EOMI, normal ENT inspection, TMs normal, pharynx normal Neck: non-tender, full range of motion, supple, normal inspection; No carotid bruit Respiratory: normal breath sounds, no respiratory distress, no accessory muscle use, other (LEFT LOWER ANTERIOR CHEST TENDERNESS--PALPATION DRAMATICALLY REPRODUCES PAIN ) Cardiovascular: normal peripheral pulses, regular rate, rhythm, no edema, no JVD, no murmur Gastrointestinal: normal bowel sounds, non tender, soft, no organomegaly Extremities: normal inspection, normal capillary refill 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: 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, no motor/sensory deficits, alert, normal mood/affect, oriented x 3 Skin: normal color, warm/dry; No rash; tattoos/piercings (MULTIPLE TATTOOS) Focused Exam Lactate Level 06/01/20 03:15: Lactic Acid Level 1.21 Lactic Acid Level Laboratory Tests Test 06/01/20 03:15 Lactic Acid Level 1.21 MMOL/L (0.50-2.00) Progress/Results/Core Measures Suspected Sepsis SIRS Temperature: Pulse: Respiratory Rate: Laboratory Tests 06/01/20 03:15: White Blood Count 8.0 Blood Pressure / Mean: 06/01/20 03:15: Lactic Acid Level 1.21 Laboratory Tests 06/01/20 03:15: Creatinine 0.74, INR Comment 1.0, Platelet Count 283, Total Bilirubin 0.3 Results/Orders Lab Results Laboratory Tests Test 06/01/20 03:15 06/01/20 03:35 06/01/20 03:45 Range/Units White Blood Count 8.0 4.3-11.0 10^3/uL Red Blood Count 4.43 3.80-5.11 10^6/uL Hemoglobin 12.3 11.5-16.0 g/dL Hematocrit 37 35-52 % Mean Corpuscular Volume 84 80-99 fL Mean Corpuscular Hemoglobin 28 25-34 pg Mean Corpuscular Hemoglobin Concent 33 32-36 g/dL Red Cell Distribution Width 13.5 10.0-14.5 % Platelet Count 283 130-400 10^3/uL Mean Platelet Volume 8.9 L 9.0-12.2 fL Immature Granulocyte % (Auto) 0 % Neutrophils (%) (Auto) 42 42-75 % Lymphocytes (%) (Auto) 44 12-44 % Monocytes (%) (Auto) 9 0-12 % Eosinophils (%) (Auto) 4 0-10 % Basophils (%) (Auto) 1 0-10 % Neutrophils # (Auto) 3.4 1.8-7.8 10^3/uL Lymphocytes # (Auto) 3.5 1.0-4.0 10^3/uL Monocytes # (Auto) 0.7 0.0-1.0 10^3/uL Eosinophils # (Auto) 0.3 0.0-0.3 10^3/uL Basophils # (Auto) 0.1 0.0-0.1 10^3/uL Immature Granulocyte # (Auto) 0.0 0.0-0.1 10^3/uL Prothrombin Time 13.2 12.2-14.7 SEC INR Comment 1.0 0.8-1.4 Activated Partial Thromboplast Time 30 24-35 SEC D-Dimer < 0.27 0.00-0.49 UG/ML Sodium Level 138 135-145 MMOL/L Potassium Level 3.6 3.6-5.0 MMOL/L Chloride Level 109 H 98-107 MMOL/L Carbon Dioxide Level 20 L 21-32 MMOL/L Anion Gap 9 5-14 MMOL/L Blood Urea Nitrogen 11 7-18 MG/DL Creatinine 0.74 0.60-1.30 MG/DL Estimat Glomerular Filtration Rate > 60 BUN/Creatinine Ratio 15 Glucose Level 94 70-105 MG/DL Lactic Acid Level 1.21 0.50-2.00 MMOL/L Calcium Level 8.6 8.5-10.1 MG/DL Corrected Calcium 8.7 8.5-10.1 MG/DL Magnesium Level 2.1 1.6-2.4 MG/DL Total Bilirubin 0.3 0.1-1.0 MG/DL Aspartate Amino Transf (AST/SGOT) 18 5-34 U/L Alanine Aminotransferase (ALT/SGPT) 19 0-55 U/L Alkaline Phosphatase 61 40-136 U/L Lactate Dehydrogenase 208 125-220 U/L Total Creatine Kinase 114 29-168 U/L Creatine Kinase MB 1.8 <6.6 NG/ML Myoglobin 17.7 10.0-92.0 NG/ML Troponin I < 0.028 <0.028 NG/ML C-Reactive Protein High Sensitivity 0.55 H 0.00-0.50 MG/DL B-Type Natriuretic Peptide 16.5 <100.0 PG/ML Total Protein 7.7 6.4-8.2 GM/DL Albumin 3.9 3.2-4.5 GM/DL Procalcitonin 0.01 <0.10 NG/ML Serum Test, Qualitative NEGATIVE NEGATIVE Coronavirus 2019 ([facility]) Negative Negative Group A Streptococcus Screen NEGATIVE NEGATIVE Urine Color YELLOW Urine Clarity SL CLOUDY Urine pH 6.0 5-9 Urine Specific [place] >=1.030 1.016-1.022 Urine Protein NEGATIVE NEGATIVE Urine Glucose (UA) NEGATIVE NEGATIVE Urine Ketones NEGATIVE NEGATIVE Urine Nitrite NEGATIVE NEGATIVE Urine Bilirubin NEGATIVE NEGATIVE Urine Urobilinogen 0.2 < = 1.0 MG/DL Urine Leukocyte Esterase NEGATIVE NEGATIVE Urine RBC (Auto) NEGATIVE NEGATIVE Urine RBC RARE /HPF Urine WBC NONE /HPF Urine Squamous Epithelial Cells 2-5 /HPF Urine Crystals NONE /LPF Urine Bacteria NEGATIVE /HPF Urine Casts NONE /LPF Urine Mucus LARGE H /LPF Urine Culture Indicated NO Urine Opiates Screen NEGATIVE NEGATIVE Urine Oxycodone Screen NEGATIVE NEGATIVE Urine Methadone Screen NEGATIVE NEGATIVE Urine Propoxyphene Screen NEGATIVE NEGATIVE Urine Barbiturates Screen NEGATIVE NEGATIVE Ur Tricyclic Antidepressants Screen NEGATIVE NEGATIVE Urine Phencyclidine Screen NEGATIVE NEGATIVE Urine Amphetamines Screen NEGATIVE NEGATIVE Urine Methamphetamines Screen NEGATIVE NEGATIVE Urine Benzodiazepines Screen NEGATIVE NEGATIVE Urine Cocaine Screen NEGATIVE NEGATIVE Urine Cannabinoids Screen NEGATIVE NEGATIVE Micro Results Microbiology 06/01/20 Influenza Types A,B Antigen ([facility]) - Final, Complete My Orders Orders - TIFFANY FRANCIS DO Rapid Strep A Screen (06/01/20 03:09) Influenza A And B Antigens (06/01/20 03:09) Coronavirus Sars-Cov-2 So 2019 (06/01/20 03:09) Covid 19 Inhouse Test (06/01/20 03:09) Ed Iv/Invasive Line Start (06/01/20 03:21) Ekg Tracing (06/01/20 03:21) Monitor-Rhythm Ecg Trace Only (06/01/20 03:21) BNP (06/01/20 03:21) Cbc With Automated Diff (06/01/20 03:21) Comprehensive Metabolic Panel (06/01/20 03:21) Creatine Kinase (06/01/20 03:21) Creatine Kinase Mb (06/01/20 03:21) Hs C Reactive Protein (06/01/20 03:21) Erythrocyte Sedimentation Rate (06/01/20 03:21) Fibrin Degradation Products (06/01/20 03:21) Drug Screen Stat (Urine) (06/01/20 03:21) Hcg,Qualitative Serum (06/01/20 03:21) Lactic Acid Analyzer (06/01/20 03:21) Magnesium (06/01/20 03:21) Procalcitonin (Pct) (06/01/20 03:21) Protime With Inr (06/01/20 03:21) Partial Thromboplastin Time (06/01/20 03:21) Ua Culture If Indicated (06/01/20 03:21) Blood Culture (06/01/20 03:21) Myoglobin Serum (06/01/20 03:21) Troponin I (06/01/20 03:21) Chest 1 View, Ap/Pa Only (06/01/20 03:21) LDH (06/01/20 03:21) Lactated Ringers (Lr 1000 Ml Iv Solution (06/01/20 03:21) Aspirin Chewable Tablet (Baby Aspirin Ch (06/01/20 03:28) Ketorolac Injection (Toradol Injection) (06/01/20 03:28) Aspirin Chewable Tablet (Baby Aspirin Ch (06/01/20 04:00) Ketorolac Injection (Toradol Injection) (06/01/20 04:00) Oseltamivir 75 Mg Capsule (Tamiflu 75 (06/01/20 04:15) Medications Given in ED Current Medications Medications Dose Ordered Sig/Rachelle Route Start Time Stop Time Status Last Admin Dose Admin Aspirin 324 mg ONCE ONCE PO 06/01/20 04:00 06/01/20 04:01 DC 06/01/20 03:30 324 MG Ketorolac Tromethamine 30 mg ONCE ONCE IVP 06/01/20 04:00 06/01/20 04:01 DC 06/01/20 03:30 30 MG Lactated Ringer's 1,000 ml @ ud STK-MED ONCE IV 06/01/20 03:21 06/01/20 03:27 DC 06/01/20 03:30 1,000 MLS/HR Oseltamivir Phosphate 75 mg ONCE ONCE PO 06/01/20 04:15 06/01/20 04:16 DC 06/01/20 04:30 75 MG Vital Signs/I&O 06/01/20 03:59 Temp 35.9 Pulse 69 Resp 20 B/P (MAP) 104/75 (85) Pulse Ox 98 Capillary Refill : Progress Note : Progress Note PLACED IN ISOLATION ROOM PPE WORN AT ALL TIMES COVID-19 TESTING PERFORMED PT ADVISED OF NEED FOR QUARANTINE GIVEN ASPIRIN AND TORADOL WITH IMPROVEMENT IN PAIN GIVEN TAMIFLU NO COUGH OR DYSPNEA AT ANY TIME NO HYPOXIA AT ANY TIME ECG Initial ECG Impression Date: Jun 01, 2020 Initial ECG Impression Time: 03:09 Initial ECG Rate: 65 Initial ECG Rhythm: Normal Sinus Diagnostic Imaging Comments CXR--NO ACUTE PROCESS, PENDING RADIOLOGIST REVIEW Reviewed: Reviewed by Me Departure Impression Primary Impression: Influenza B Additional Impressions: Person under investigation for COVID-19 Left-sided chest wall pain Disposition: 01 HOME, SELF-CARE Condition: Stable Departure-Patient Inst. Referrals: [facility] (PCP/Family) Primary Care Physician Patient Instructions: Coronavirus Disease 2019 (COVID-19) Overview, Costochondritis (DC), Flu, Adult (DC), Preventing the Spread of an Infectious Disease Add. Discharge Instructions: ALTERNATE ICE AND HEAT TO SORE AREA AT 20 MINUTE INTERVALS INCREASE YOUR FLUIDS--WATER, BROTH, JELLO, GATORADE--DRINK ENOUGH SO YOU ARE URINATING EVERY 2-3 HOURS WHILE AWAKE FOLLOW UP WITH YOUR DR IN 4-5 DAYS IF NO BETTER, RETURN TO ER IF WORSE YOU MAY NEED TO BE RE-TESTED FOR COVID-19 IN A FEW DAYS IF YOU ARE STILL HAVING SYMPTOMS QUARANTINE YOURSELF AND ALL HOUSEHOLD MEMBERS FOR 2 WEEKS OR UNTIL CLEARED BY OR HEALTH DEPT. All discharge instructions reviewed with patient and/or family. Voiced understanding. Scripts Benzonatate (TESSALON PERLES) 100 Mg Capsule 200 MG PO TID, #50 CAP Prov: TIFFANY FRANCIS DO 06/01/20 Guaifenesin/Dextromethorphan (Mucinex Dm ER 1,200-60 mg Tab) 1 Each Tbmp.12hr 1 EACH PO BID, #20 EA Prov: TIFFANY FRANCIS DO 06/01/20 Methylprednisolone (Medrol) 4 Mg Tab.ds.pk 4 MG PO UD for 6 Days, #21 PKG PER DOSE PACK INSTRUCTIONS Prov: TIFFANY FRANCIS DO 06/01/20 Oseltamivir Phosphate (Tamiflu) 75 Mg Cap 75 MG PO BID for 5 Days, #10 CAP Prov: TIFFANY FRANCIS DO 06/01/20 TIFFANY FRANCIS DO Jun 01, 2020 04:10
[2020-06-01] MEDS ORDERED: OSELTAMIVIR 75 MG (TAMIFLU) CAPSULE PO ONE (04:15)
[2020-06-01 04:16] LABS: AMPHETAMINE SCREEN, URINE NEGATIVE (NEGATIVE); BARBITURATE SCREEN URINE NEGATIVE (NEGATIVE); BENZODIAZEPINES SCREEN URINE NEGATIVE (NEGATIVE); CANNABINOID SCREEN, URINE NEGATIVE (NEGATIVE); COCAINE SCREEN URINE NEGATIVE (NEGATIVE); METHADONE STAT NEGATIVE (NEGATIVE); METHAMPHETAMINE SCREEN URINE S NEGATIVE (NEGATIVE); OPIATE SCREEN URINE NEGATIVE (NEGATIVE); OXYCODONE STAT NEGATIVE (NEGATIVE); PROPOXYPHENE STAT NEGATIVE (NEGATIVE); TRICYCLIC ANTIDEPRESSANTS SCRE NEGATIVE (NEGATIVE)
[2020-06-01 04:16] LABS: FIBRIN DEGRADATION PRODUCTS < 0.27 UG/ML (0.00-0.49); PARTIAL THROMBOPLASTIN TIME 30 SEC (24-35); PROTHROMBIN TIME PATIENT 13.2 SEC (12.2-14.7)
[2020-06-01] MEDS ORDERED: BENZ100C18 PO (04:36)
[2020-06-01] MEDS ORDERED: GUAI1TBM19 PO (04:36)
[2020-06-01] MEDS ORDERED: METH4TAB PO (04:36)
[2020-06-01] MEDS ORDERED: OSLT75C PO (04:36)
[2020-06-01 04:46] VITALS: BP 111/69
[2020-06-01 04:50] LABS: ERYTHROCYTE SEDIMENTATION RATE 35 MM/HR (0-20)
--- NOTE | 2020-06-01 05:56 | Diagnostic Imaging Report ---
Indication: Dyspnea Single AP view of the chest is obtained with comparison made study of 09/29/2019 FINDINGS: Heart size and pulmonary vascularity are within normal limits, and the lungs are clear, bilaterally. IMPRESSION: Unremarkable chest. Dictated by: Dictated on workstation # [id number]
== END 2020-06-01 04:46 | disposition home or self-care (01) ==
LOC: EDUNIT# 02:39 → ER 02:41
DX: J10.1 Influenza due to other identified influenza virus with other respiratory manifestations (principal); R07.89 Other chest pain; E66.9 Obesity, unspecified; F41.9 Anxiety disorder, unspecified; Z20.822 Contact with and (suspected) exposure to COVID-19; Z68.31 Body mass index [BMI] 31.0-31.9, adult; Z77.22 Contact with and (suspected) exposure to environmental tobacco smoke (acute) (chronic); Z79.52 Long term (current) use of systemic steroids
CPT/HCPCS: 71045; 80053; 80306; 81000; 82550; 82553; 83605; 83615; 83735; 83874; 83880; 84145; 84484; 84703; 85025; 85379; 85610; 85652; 85730; 86141; 87040; 87430; 87804; 93005; 93041; 99284; U0002; 36415; 87635

== ENCOUNTER 2020-07-07 13:43 | Emergency (ER) | payer SELFPAY ==
[~2020-07-07] VITALS: Ht 157 cm; Wt 92.0 kg
[~2020-07-07 13:43] MED LIST changes: +BENZ100C18 PO; +GUAI1TBM19 PO
[2020-07-07] MEDS ORDERED: LACTATED RINGERS 1,000 ML IV ONE (14:15)
[2020-07-07] MEDS ORDERED: KETOROLAC 30 MG/ML VIAL IVP ONE (14:15)
[2020-07-07] MEDS ORDERED: ACETAMINOPHEN 500 MG TAB (TYLENOL) PO ONE (14:15)
[2020-07-07] MEDS ORDERED: BENZONATATE 100 MG (TESSALON) CAPSULE PO ONE (14:15)
[2020-07-07] MEDS ORDERED: ONDANSETRON 4 MG/2 ML (SDV) Z0FRAN IVP ONE (14:15)
--- NOTE | 2020-07-07 14:24 | ED General ---
General Chief Complaint: Respiratory Problems Stated Complaint: CHILLS,SOB,DIARRHEA,COUGH Nursing Triage Note: PT STATES FEVER, COUGH, CHILLS FR 2-3 DAYS. Nursing Sepsis Screen: Possible Severe Sepsis Risk Source of Information: Patient Exam Limitations: No Limitations History of Present Illness Date Seen by Provider: Jul 07, 2020 Time Seen by Provider: 14:00 Initial Comments This 44-year-old young lady presents to the emergency room with flulike symptoms including myalgia, fever, cough, nausea, diarrhea, sore throat, lightheadedness, and headache. Symptoms started yesterday after returning home from a trip to [place]. She has received 1 dose of the COVID-19 vaccine. She does not recall if she received the flu vaccine. She had testing performed at the clinic but does not have results reported yet. She does know her rapid strep test was negative. Allergies and Home Medications Allergies Coded Allergies: No Known Drug Allergies (Unverified , 06/01/20) Home Medications Benzonatate 100 Mg Capsule, 200 MG PO TID Prescribed by: TIFFANY FRANCIS on 06/01/20435 Cephalexin 500 Mg Capsule, 500 MG PO QID Prescribed by: NINO SUMNER on 02/21/19 2352 Cyclobenzaprine HCl 10 Mg Tablet, 10 MG PO TID PRN for SPASMS Prescribed by: NINO SUMNER on 06/25/19 1016 Guaifenesin/Dextromethorphan 1 Each Tbmp.12hr, 1 EACH PO BID Prescribed by: TIFFANY FRANCIS on 06/01/20435 Hydroxyzine HCl 25 Mg Tablet, 25 MG PO Q4H Prescribed by: JAELYN MORALES on 02/23/19 1508 Methylprednisolone 4 Mg Tab.ds.pk, 4 MG PO UD PER DOSE PACK INSTRUCTIONS Prescribed by: TIFFANY FRANCIS on 06/01/20435 Naproxen 500 Mg Tablet, 500 MG PO BID Prescribed by: JEREMY MAC on 09/29/19 1429 Ondansetron 4 Mg Tab.rapdis, 4 MG SL Q4H PRN for NAUSEA/VOMITING Prescribed by: NINO SUMNER on 07/07/20 1616 Oseltamivir Phosphate 75 Mg Cap, 75 MG PO BID Prescribed by: TIFFANY FRANCIS on 06/01/20 043 Promethazine HCl/Codeine 5 Ml Syrup, 5 ML PO Q4H PRN for COUGH Prescribed by: NINO SUMNER on 07/07/20 9279 Patient Home Medication List Home Medication List Reviewed: Yes Review of Systems Review of Systems Constitutional: see HPI EENTM: throat pain Respiratory: see HPI Cardiovascular: see HPI Gastrointestinal: see HPI Genitourinary: no symptoms reported : No Musculoskeletal: see HPI Skin: no symptoms reported Psychiatric/Neurological: See HPI Hematologic/Lymphatic: No Symptoms Reported Past Vcyyjjk-Gzfdav-Ukwcqe Hx Past Med/Social Hx: Reviewed Nursing Past Med/Soc Hx Patient Social History Alcohol Use: Denies Use Number of Drinks Today: AA Alcohol Beverage of Choice: Beer Drug of Choice: DENIES Smoking Status: Never a Smoker Type Used: Cigarettes 2nd Hand Smoke Exposure: Yes ( USED TO SMOKE--QUIT > 10 YEARS AGO) Recent Infectious Disease Expo: No Recent Hopitalizations: No Immunizations Up To Date Tetanus Booster (TDap): Unknown PED Vaccines UTD: Yes Date of Influenza Vaccine: Jan 25, 2015 Seasonal Allergies Seasonal Allergies: No Past Medical History Surgeries: Yes (L KNEE X2 / R KNEE SCOPE;C/S x4;GASTRIC SLEEVE;TUMMY TUCK;L WRIST;R ELBOW) Abdominal, Appendectomy, Section, Gallbladder, Hysterectomy, Oophorectomy, Orthopedic, Tubal Ligation Respiratory: No Currently Using CPAP: No Currently Using BIPAP: No Cardiac: Yes High Cholesterol Neurological: No Reproductive Disorders: No Female 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 Sexually Transmitted Disease: No HIV/AIDS: No Genitourinary: Yes Kidney Infection, Bladder Infection, Kidney Stones, UTI-Chronic Gastrointestinal: Yes (S/P APPY, ROSALIO, GASTRIC SLEEVE, TUMMY TUCK) Chronic Diarrhea, Gall Bladder Disease, Irritable Bowel Musculoskeletal: Yes (BILAT KNEE SCOPES; L WRIST; R ELBOW) Arthritis Endocrine: Yes (OBESITY) Diabetes, Non-Insulin dep HEENT: No Loss of Vision: Bilateral Hearing Impairment: Denies Cancer: No Psychosocial: Yes Anxiety Integumentary: No Recent Skin Changes Blood Disorders: No Adverse Reaction/Blood Tranf: No Family Medical History No Pertinent Family Hx ADDIITIONAL SURGICAL/PROCEDURAL HISTORY: -LEFT KNEE ARTHROSCOPY 07/2015 AND 12/2015 -RIGHT KNEE ARTHROSCOPY - X 4 -HYSTERECTOMY 2004 -APPENDECTOMY 2003 -LEFT SALPINGO-OOPHORECTOMY AND CHOLECYSTECTOMY 07/28/2016 -GASTRIC SLEEVE 11/17/2016 -TUMMY TUCK -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 HEMORRHOIDS NOTED OTHERWISE NORMAL Physical Exam Vital Signs Vital Signs - First Documented 07/07/20 14:08 Temp 38.5 Pulse 92 Resp 26 B/P (MAP) 132/95 (107) Pulse Ox 97 O2 Delivery Room Air Capillary Refill : Less Than 3 Seconds Height, Weight, BMI Height: 5'2.00" Weight: 165lbs. 0oz. 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 Norm as Tested Skin: Normal Color, Warm/Dry Progress/Results/Core Measures Suspected Sepsis Recent Fever Within 48 Hours: Yes Infection Criteria Present: Suspected New Infection New/Unexplained Altered Menta: No Sepsis Screen: Possible Severe Sepsis Risk SIRS Temperature: Pulse: 92 Respiratory Rate: 26 Laboratory Tests 07/07/20 14:05: White Blood Count 9.0 Blood Pressure 132 /95 Mean: 107 Laboratory Tests 07/07/20 14:05: Creatinine 0.76, Platelet Count 231, Total Bilirubin 0.7 Results/Orders Lab Results Laboratory Tests Test 07/07/20 14:05 07/07/20 14:10 07/07/20 15:05 Range/Units White Blood Count 9.0 4.3-11.0 10^3/uL Red Blood Count 4.76 3.80-5.11 10^6/uL Hemoglobin 13.2 11.5-16.0 g/dL Hematocrit 41 35-52 % Mean Corpuscular Volume 86 80-99 fL Mean Corpuscular Hemoglobin 28 25-34 pg Mean Corpuscular Hemoglobin Concent 32 32-36 g/dL Red Cell Distribution Width 13.7 10.0-14.5 % Platelet Count 231 130-400 10^3/uL Mean Platelet Volume 9.3 9.0-12.2 fL Immature Granulocyte % (Auto) 0 % Neutrophils (%) (Auto) 76 H 42-75 % Lymphocytes (%) (Auto) 14 12-44 % Monocytes (%) (Auto) 7 0-12 % Eosinophils (%) (Auto) 2 0-10 % Basophils (%) (Auto) 1 0-10 % Neutrophils # (Auto) 6.9 1.8-7.8 10^3/uL Lymphocytes # (Auto) 1.3 1.0-4.0 10^3/uL Monocytes # (Auto) 0.6 0.0-1.0 10^3/uL Eosinophils # (Auto) 0.2 0.0-0.3 10^3/uL Basophils # (Auto) 0.1 0.0-0.1 10^3/uL Immature Granulocyte # (Auto) 0.0 0.0-0.1 10^3/uL Sodium Level 138 135-145 MMOL/L Potassium Level 3.8 3.6-5.0 MMOL/L Chloride Level 105 98-107 MMOL/L Carbon Dioxide Level 22 21-32 MMOL/L Anion Gap 11 5-14 MMOL/L Blood Urea Nitrogen 10 7-18 MG/DL Creatinine 0.76 0.60-1.30 MG/DL Estimat Glomerular Filtration Rate > 60 BUN/Creatinine Ratio 13 Glucose Level 91 70-105 MG/DL Calcium Level 9.0 8.5-10.1 MG/DL Corrected Calcium 8.8 8.5-10.1 MG/DL Total Bilirubin 0.7 0.1-1.0 MG/DL Aspartate Amino Transf (AST/SGOT) 18 5-34 U/L Alanine Aminotransferase (ALT/SGPT) 14 0-55 U/L Alkaline Phosphatase 66 40-136 U/L C-Reactive Protein High Sensitivity 2.82 H 0.00-0.50 MG/DL Total Protein 8.3 H 6.4-8.2 GM/DL Albumin 4.2 3.2-4.5 GM/DL Coronavirus 2019 (SHALINI) Not Detected Not Detecte Urine Color YELLOW Urine Clarity CLEAR Urine pH 7.0 5-9 Urine Specific [place] 1.025 H 1.016-1.022 Urine Protein NEGATIVE NEGATIVE Urine Glucose (UA) NEGATIVE NEGATIVE Urine Ketones NEGATIVE NEGATIVE Urine Nitrite NEGATIVE NEGATIVE Urine Bilirubin NEGATIVE NEGATIVE Urine Urobilinogen 0.2 < = 1.0 MG/DL Urine Leukocyte Esterase NEGATIVE NEGATIVE Urine RBC (Auto) NEGATIVE NEGATIVE Urine RBC NONE /HPF Urine WBC 0-2 /HPF Urine Squamous Epithelial Cells 0-2 /HPF Urine Crystals NONE /LPF Urine Bacteria NEGATIVE /HPF Urine Casts NONE /LPF Urine Mucus MODERATE H /LPF Urine Culture Indicated NO Micro Results Microbiology 07/07/20 Influenza Types A,B Antigen (SHOAIB) - Final, Complete My Orders Orders - NINO WINKLER MD Cbc With Automated Diff (07/07/20 14:07) Comprehensive Metabolic Panel (07/07/20 14:07) Hs C Reactive Protein (07/07/20 14:07) Ed Iv/Invasive Line Start (07/07/20 14:07) Lactated Ringers (Lr 1000 Ml Iv Solution (07/07/20 14:15) Acetaminophen Tablet (Tylenol Tablet) (07/07/20 14:15) Ondansetron Injection (Zofran Injectio (07/07/20 14:15) Ketorolac Injection (Toradol Injection) (07/07/20 14:15) Benzonatate Capsule (Tessalon Perles) (07/07/20 14:15) Influenza A And B Antigens (07/07/20 14:07) Chest 1 View, Ap/Pa Only (07/07/20 14:07) Covid 19 Inhouse Test (07/07/20 14:07) Ua Culture If Indicated (07/07/20 14:57) Medications Given in ED Current Medications Medications Dose Ordered Sig/Rachelle Route Start Time Stop Time Status Last Admin Dose Admin Acetaminophen 1,000 mg ONCE ONCE PO 07/07/20 14:15 07/07/20 14:16 DC 07/07/20 14:21 1,000 MG Benzonatate 200 mg ONCE ONCE PO 07/07/20 14:15 07/07/20 14:16 DC 07/07/20 14:21 200 MG Ketorolac Tromethamine 15 mg ONCE ONCE IVP 07/07/20 14:15 07/07/20 14:16 DC 07/07/20 14:20 15 MG Lactated Ringer's 1,000 ml @ 0 mls/hr Q0M ONCE IV 07/07/20 14:15 07/07/20 14:16 DC 07/07/20 14:20 1,000 MLS/HR Ondansetron HCl 8 mg ONCE ONCE IVP 07/07/20 14:15 07/07/20 14:16 DC 07/07/20 14:20 8 MG Vital Signs/I&O 07/07/20 07/07/20 07/07/20 07/07/20 14:08 14:20 14:21 16:37 Temp 38.5 38.5 38.5 37.1 Pulse 92 70 Resp 26 18 B/P (MAP) 132/95 (107) 96/57 (107) Pulse Ox 97 97 O2 Delivery Room Air Room Air Capillary Refill : Less Than 3 Seconds Blood Pressure Mean: 107 Progress Note : Time: 14:24 Progress Note Patient was seen and examined. Work-up is underway including chest x-ray and labs. She is being treated with IV fluids, Zofran, Toradol, Tessalon Perles, and Tylenol. Diagnostic Imaging Diagonstic Imaging: Xray Plain Films/CT/US/NM/MRI: chest Comments Chest x-ray viewed by me and report reviewed. See report below: NAME: FLAKO JEREZ [facility] REC#: [id number] PT STATUS: REG ER : 1975 PHYSICIAN: NINO WINKLER MD ADMIT DATE: 07/07/20/ER Signed Date of Exam:07/07/20 CHEST 1 VIEW, AP/PA ONLY INDICATION: Fever and chills. TECHNIQUE/COMPARISON: A frontal chest was obtained at 3:03 PM and compared with 06/01/2020. FINDINGS: The heart and mediastinal silhouette are normal in appearance. The lungs appear clear. There is no pneumothorax or pleural fluid. IMPRESSION: Negative chest. Dictated by: Dictated on workstation # [id number] Dict: 07/07/20 1540 Trans: 07/07/20 1627 [id number] Interpreted by: LYNDA OLSON MD Electronically signed by: LYNDA OLSON MD 07/07/20 1627 Departure Impression Primary Impression: Flu-like symptoms Disposition: 01 HOME, SELF-CARE Condition: Improved Departure-Patient Inst. Decision time for Depature: 16:14 Referrals: [facility] (PCP/Family) Primary Care Physician Patient Instructions: Viral Syndrome (DC) Add. Discharge Instructions: Complaining of clear liquids to stay well-hydrated. Gradually advance your diet with small quantities of bland food as tolerated. You may take ibuprofen up to 600 mg every 6 hours as needed and/or Tylenol (acetaminophen) up to 1000 mg every 6 hours as needed. Stay home in quarantine until your fever has resolved without the treatment of medications for at least 24 hours. Use Zofran (ondansetron) as prescribed for nausea vomiting. Return to care if you have worsening of symptoms. Call with questions or concerns. All discharge instructions reviewed with patient and/or family. Voiced understanding. Scripts Promethazine HCl/Codeine (Prometh-Codein 6.25-10 mg/5 ml) 5 Ml Syrup 5 ML PO Q4H PRN for COUGH, #60 ML Prov: NINO WINKLER MD 07/07/20 Ondansetron (Ondansetron Odt) 4 Mg Tab.rapdis 4 MG SL Q4H PRN for NAUSEA/VOMITING, #10 TAB Prov: NINO WINKLER MD 07/07/20 Work/School Note: Work Release Form Date Seen in the Emergency Department: Jul 07, 2020 Return to Work: Jul 09, 2020 Restrictions: Return-No Fever (24hrs) NINO WINKLER MD Jul 07, 2020 14:24
[2020-07-07 14:28] LABS: BASOPHILS # (AUTO) 0.1 10^3/uL (0.0-0.1); BASOPHILS % (AUTO) 1 % (0-10); EOSINOPHILS # (AUTO) 0.2 10^3/uL (0.0-0.3); EOSINOPHILS % (AUTO) 2 % (0-10); HEMATOCRIT 41 % (35-52); HEMOGLOBIN 13.2 g/dL (11.5-16.0); LYMPHOCYTES # (AUTO) 1.3 10^3/uL (1.0-4.0); LYMPHOCYTES % (AUTO) 14 % (12-44); MEAN CORPUSCULAR HEMOGLOBIN 28 pg (25-34); MEAN CORPUSCULAR HGB CONC 32 g/dL (32-36); MEAN CORPUSCULAR VOLUME 86 fL (80-99); MEAN PLATELET VOLUME 9.3 fL (9.0-12.2); MONOCYTES # (AUTO) 0.6 10^3/uL (0.0-1.0); MONOCYTES % (AUTO) 7 % (0-12); NEUTROPHILS # (AUTO) 6.9 10^3/uL (1.8-7.8); NEUTROPHILS % (AUTO) 76 % (42-75); PLATELET COUNT 231 10^3/uL (130-400)
[2020-07-07 14:49] LABS: ALBUMIN 4.2 GM/DL (3.2-4.5); CHLORIDE 105 MMOL/L (98-107); POTASSIUM 3.8 MMOL/L (3.6-5.0); SODIUM 138 MMOL/L (135-145)
[2020-07-07 14:51] LABS: GLUCOSE 91 MG/DL (70-105); TOTAL PROTEIN 8.3 GM/DL (6.4-8.2)
[2020-07-07 14:52] LABS: CARBON DIOXIDE 22 MMOL/L (21-32)
[2020-07-07 14:53] LABS: BILIRUBIN,TOTAL 0.7 MG/DL (0.1-1.0)
[2020-07-07 14:55] LABS: ALKALINE PHOSPHATASE 66 U/L (40-136); CREATININE SERUM 0.76 MG/DL (0.60-1.30); GFR ESTIMATED > 60
[2020-07-07 14:56] LABS: BUN/CREATININE RATIO 13
[2020-07-07 14:58] LABS: ALANINE AMINOTRANSFERASE 14 U/L (0-55)
[2020-07-07 15:12] LABS: BILIRUBIN,URINE NEGATIVE (NEGATIVE); CLARITY,URINE CLEAR; COLOR,URINE YELLOW; GLUCOSE, URINE (UA) NEGATIVE (NEGATIVE); KETONES,URINE NEGATIVE (NEGATIVE); LEUKOCYTE ESTERASE ,URINE NEGATIVE (NEGATIVE); NITRITE,URINE NEGATIVE (NEGATIVE); PROTEIN,URINE NEGATIVE (NEGATIVE)
[2020-07-07 15:20] LABS: BACTERIA,URINE NEGATIVE /HPF; SQUAMOUS EPITHELIAL CELL,UR 0-2 /HPF; WBC,URINE 0-2 /HPF
--- NOTE | 2020-07-07 15:45 | Diagnostic Imaging Report ---
INDICATION: Fever and chills. TECHNIQUE/COMPARISON: A frontal chest was obtained at 3:03 PM and compared with 06/01/2020. FINDINGS: The heart and mediastinal silhouette are normal in appearance. The lungs appear clear. There is no pneumothorax or pleural fluid. IMPRESSION: Negative chest. Dictated by: Dictated on workstation # [id number]
[2020-07-07] MEDS ORDERED: ONDA4TAB11 SL (16:16)
[2020-07-07] MEDS ORDERED: PROM5SYR PO (16:19)
[2020-07-07 16:37] VITALS: BP 96/57
== END 2020-07-07 16:37 | disposition home or self-care (01) ==
LOC: EDUNIT# 13:43 → ER 13:45
DX: J02.9 Acute pharyngitis, unspecified (principal); R19.7 Diarrhea, unspecified; R42 Dizziness and giddiness; E11.9 Type 2 diabetes mellitus without complications; E66.9 Obesity, unspecified; Z77.22 Contact with and (suspected) exposure to environmental tobacco smoke (acute) (chronic); Z79.52 Long term (current) use of systemic steroids; Z20.822 Contact with and (suspected) exposure to COVID-19
CPT/HCPCS: 71045; 80053; 81000; 85025; 86141; 87804; 96374; 96375; 99284; U0002; 36415; 87635

== ENCOUNTER 2020-08-01 02:59 | Emergency (ER) | payer SELFPAY ==
[~2020-08-01] VITALS: Ht 157.4 cm; Wt 92.0 kg
[~2020-08-01 02:59] MED LIST changes: +ONDA4TAB11 SL; +PROM5SYR PO
[2020-08-01 03:05] VITALS: BP 119/64
[2020-08-01] MEDS ORDERED: CYCLOBENZAPRINE 10 MG (FLEXERIL) TAB PO STA (03:19)
--- NOTE | 2020-08-01 03:19 | ED Upper Extremity ---
General Chief Complaint: Upper Extremity Stated Complaint: FALL,LEFT ARM INJURY Source: patient Exam Limitations: no limitations History of Present Illness Date Seen by Provider: August 01, 2020 Time Seen by Provider: 03:10 Initial Comments Patient is a 44-year-old female who presents to the emergency department with a chief complaint of left forearm pain after a fall at around 4:00 yesterday afternoon. Patient states that she tripped on a step over her cat and landed on her left arm. She states her arm hit the ground. Patient states that she was able to go to work but has a "numb" sensation along with pain in the dorsal area of the left forearm. She denies numbness tingling or weakness to her hand. No pain in her shoulder. No other complaints of illness or injury. Patient states that she attempted to use an ice pack to alleviate her symptoms without any relief. She has not taken any medications for the pain. Squeezing on her left arm seems to make the pain feel little bit better. All other review of systems reviewed and negative except as stated above. Onset: yesterday Severity: moderate Pain/Injury Location: left arm Method of Injury: fell Modifying Factors: Worse With Movement Allergies and Home Medications Allergies Coded Allergies: No Known Drug Allergies (Unverified , 06/01/20) Home Medications Benzonatate 100 Mg Capsule, 200 MG PO TID Prescribed by: TIFFANY FRANCIS on 06/01/20435 Cephalexin 500 Mg Capsule, 500 MG PO QID Prescribed by: NINO SUMNER on 02/21/19 2352 Cyclobenzaprine HCl 10 Mg Tablet, 10 MG PO TID PRN for SPASMS Prescribed by: NINO SUMNER on 06/25/19 1016 Guaifenesin/Dextromethorphan 1 Each Tbmp.12hr, 1 EACH PO BID Prescribed by: TIFFANY FRANCIS on 06/01/20435 Hydroxyzine HCl 25 Mg Tablet, 25 MG PO Q4H Prescribed by: JAELYN MORALES on 02/23/19 1508 Methylprednisolone 4 Mg Tab.ds.pk, 4 MG PO UD PER DOSE PACK INSTRUCTIONS Prescribed by: TIFFANY FRANCIS on 06/01/20435 Naproxen 500 Mg Tablet, 500 MG PO BID Prescribed by: JEREMY MAC on 09/29/19 1429 Ondansetron 4 Mg Tab.rapdis, 4 MG SL Q4H PRN for NAUSEA/VOMITING Prescribed by: NINO SUMNER on 07/07/20 1616 Oseltamivir Phosphate 75 Mg Cap, 75 MG PO BID Prescribed by: TIFFANY FRANCIS on 06/01/20 0436 Promethazine HCl/Codeine 5 Ml Syrup, 5 ML PO Q4H PRN for COUGH Prescribed by: NINO SUMNER on 07/07/20 1619 Patient Home Medication List Home Medication List Reviewed: Yes Review of Systems Constitutional: see HPI Respiratory: no symptoms reported Cardiovascular: no symptoms reported Musculoskeletal: muscle pain Skin: no symptoms reported All Other Systems Reviewed Negative Unless Noted: Yes Past Exmfonb-Tclmlv-Yogzha Hx Patient Social History Alcohol Beverage of Choice: Beer Drug of Choice: DENIES Type Used: Cigarettes 2nd Hand Smoke Exposure: Yes ( USED TO SMOKE--QUIT > 10 YEARS AGO) Recent Hopitalizations: No Immunizations Up To Date Tetanus Booster (TDap): Unknown PED Vaccines UTD: Yes Date of Influenza Vaccine: Jan 25, 2015 Seasonal Allergies Seasonal Allergies: No Past Medical History Surgeries: Yes (L KNEE X2 / R KNEE SCOPE;C/S x4;GASTRIC SLEEVE;TUMMY TUCK;L WRIST;R ELBOW) Abdominal, Appendectomy, Section, Gallbladder, Hysterectomy, Oophorectomy, Orthopedic, Tubal Ligation Respiratory: No Currently Using CPAP: No Currently Using BIPAP: No Cardiac: Yes High Cholesterol Neurological: No Reproductive Disorders: No Female Reproductive Disorders: Denies 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 Sexually Transmitted Disease: No HIV/AIDS: No Genitourinary: Yes Kidney Infection, Bladder Infection, Kidney Stones, UTI-Chronic Gastrointestinal: Yes (S/P APPY, ROSALIO, GASTRIC SLEEVE, TUMMY TUCK) Chronic Diarrhea, Gall Bladder Disease, Irritable Bowel Musculoskeletal: Yes (BILAT KNEE SCOPES; L WRIST; R ELBOW) Arthritis Endocrine: Yes (OBESITY) Diabetes, Non-Insulin dep HEENT: No Loss of Vision: Bilateral Hearing Impairment: Denies Cancer: No Psychosocial: Yes Anxiety Integumentary: No Recent Skin Changes Blood Disorders: No Adverse Reaction/Blood Tranf: No Family Medical History No Pertinent Family Hx ADDIITIONAL SURGICAL/PROCEDURAL HISTORY: -LEFT KNEE ARTHROSCOPY 07/2015 AND 12/2015 -RIGHT KNEE ARTHROSCOPY - X 4 -HYSTERECTOMY 2004 -APPENDECTOMY 2003 -LEFT SALPINGO-OOPHORECTOMY AND CHOLECYSTECTOMY 07/28/2016 -GASTRIC SLEEVE 11/17/2016 -TUMMY TUCK -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 HEMORRHOIDS NOTED OTHERWISE NORMAL Physical Exam Vital Signs Capillary Refill : Height, Weight, BMI Height: 5'2.00" Weight: 165lbs. 0oz. 74.510183ge; 37.00 BMI Method:Stated General Appearance: WD/WN, no apparent distress Neck: full range of motion Cardiovascular: regular rate, rhythm Respiratory: no respiratory distress, no accessory muscle use Shoulder: normal inspection, non-tender, no evidence of injury, normal ROM Elbow/Forearm: normal inspection, no evidence of injury, normal ROM, Left, soft tissue tenderness Wrist: Yes normal inspection, Yes non-tender, Yes no evidence of injury, Yes normal ROM Hand: normal inspection, non-tender, no evidence of injury, normal ROM, Left Neurologic/Tendon: normal sensation, normal motor functions, normal tendon functions 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: no motor/sensory deficits, alert, normal mood/affect, oriented x 3 Skin: normal color, warm/dry Departure Impression Primary Impression: Left forearm pain Disposition: 01 HOME, SELF-CARE Condition: Stable Departure-Patient Inst. Decision time for Depature: 03:18 Referrals: [facility] (PCP/Family) Primary Care Physician Patient Instructions: Contusion (DC) Add. Discharge Instructions: Use [id number] Tylenol extra strength, 2 tablets every 4-6 hours as needed for pain. Apply a heating pad to reduce pain. Return to the emergency room for any worsening symptoms or new emergent concerns SHI DIAS MD August 01, 2020 03:19
[2020-08-01] MEDS ORDERED: ACETAMINOPHEN 500 MG TAB (TYLENOL) PO ONE (03:30)
== END 2020-08-01 03:50 | disposition home or self-care (01) ==
LOC: EDUNIT# 02:59 → ER 03:02
DX: M79.632 Pain in left forearm (principal); E66.9 Obesity, unspecified; F41.9 Anxiety disorder, unspecified; E11.9 Type 2 diabetes mellitus without complications; Z68.37 Body mass index [BMI] 37.0-37.9, adult; Z77.22 Contact with and (suspected) exposure to environmental tobacco smoke (acute) (chronic); Z79.52 Long term (current) use of systemic steroids; Z79.899 Other long term (current) drug therapy
CPT/HCPCS: 99283

== ENCOUNTER 2020-10-06 19:55 | Emergency (ER) | payer SELFPAY ==
[~2020-10-06] VITALS: Ht 157.5 cm; Wt 90.9 kg
[2020-10-06] MEDS ORDERED: ORPHENADRINE 60 MG/2 ML (NORFLEX) AMP (ED ONLY) IM ONE (20:30)
[2020-10-06] MEDS ORDERED: KETOROLAC 30 MG/ML VIAL IVP ONE (20:30)
--- NOTE | 2020-10-06 20:42 | ED Lower Extremity ---
General Chief Complaint: Lower Extremity Stated Complaint: R HIP PAIN Source: patient Exam Limitations: no limitations History of Present Illness Date Seen by Provider: Oct 06, 2020 Time Seen by Provider: 20:23 Initial Comments This is a well-appearing 45-year-old female who presents to the ER with complaints of right-sided buttock and hip pain for the past several weeks. States that she had a fall a month ago and was never evaluated for this. No fever, chills, cough, shortness of breath, nausea, vomiting, dental pain. She does have intermittent episodes of numbness and tingling that shoot down her leg. Allergies and Home Medications Allergies Coded Allergies: No Known Drug Allergies (Unverified , 06/01/20) Home Medications Benzonatate 100 Mg Capsule, 200 MG PO TID Prescribed by: TIFFANY FRANCIS on 06/01/20435 Cephalexin 500 Mg Capsule, 500 MG PO QID Prescribed by: NINO SUMNER on 02/21/19 2352 Cyclobenzaprine HCl 10 Mg Tablet, 10 MG PO TID PRN for SPASMS Prescribed by: NINO SUMNER on 06/25/19 1016 Cyclobenzaprine HCl 10 Mg Tablet, 10 MG PO Q8H PRN for SPASMS Prescribed by: ROLANDO PEREZ on 10/06/207 Guaifenesin/Dextromethorphan 1 Each Tbmp.12hr, 1 EACH PO BID Prescribed by: TIFFANY FRANCIS on 06/01/20435 Hydroxyzine HCl 25 Mg Tablet, 25 MG PO Q4H Prescribed by: JAELYN MORALES on 02/23/19 1508 Methylprednisolone 4 Mg Tab.ds.pk, 4 MG PO UD PER DOSE PACK INSTRUCTIONS Prescribed by: TIFFANY FRANCIS on 06/01/20435 Naproxen 500 Mg Tablet, 500 MG PO BID Prescribed by: JEREMY MAC on 09/29/19 1429 Ondansetron 4 Mg Tab.rapdis, 4 MG SL Q4H PRN for NAUSEA/VOMITING Prescribed by: NINO SUMNER on 07/07/20 1616 Oseltamivir Phosphate 75 Mg Cap, 75 MG PO BID Prescribed by: TIFFANY FRANCIS on 06/01/20 043 Promethazine HCl/Codeine 5 Ml Syrup, 5 ML PO Q4H PRN for COUGH Prescribed by: NINO SUMNER on 07/07/20 1619 Past Pbfjpqt-Gmnerh-Nfdxwr Hx Immunizations Up To Date Tetanus Booster (TDap): Unknown PED Vaccines UTD: Yes Seasonal Allergies Seasonal Allergies: No Past Medical History Surgeries: Yes (L KNEE X2 / R KNEE SCOPE;C/S x4;GASTRIC SLEEVE;TUMMY TUCK;L WRIST;R ELBOW) Abdominal, Appendectomy, Section, Gallbladder, Hysterectomy, Oophor ectomy, Orthopedic, Tubal Ligation Respiratory: No Currently Using CPAP: No Currently Using BIPAP: No Cardiac: Yes High Cholesterol Neurological: No Reproductive Disorders: No Female Reproductive Disorders: 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 Sexually Transmitted Disease: No HIV/AIDS: No Genitourinary: Yes Kidney Infection, Bladder Infection, Kidney Stones, UTI-Chronic Gastrointestinal: Yes (S/P APPY, ROSALIO, GASTRIC SLEEVE, TUMMY TUCK) Chronic Diarrhea, Gall Bladder Disease, Irritable Bowel Musculoskeletal: Yes (BILAT KNEE SCOPES; L WRIST; R ELBOW) Arthritis Endocrine: Yes (OBESITY) Diabetes, Non-Insulin dep HEENT: No Loss of Vision: Bilateral Hearing Impairment: Denies Cancer: No Psychosocial: Yes Anxiety Integumentary: No Recent Skin Changes Blood Disorders: No Adverse Reaction/Blood Tranf: No Family Medical History No Pertinent Family Hx ADDIITIONAL SURGICAL/PROCEDURAL HISTORY: -LEFT KNEE ARTHROSCOPY 07/2015 AND 12/2015 -RIGHT KNEE ARTHROSCOPY - X 4 -HYSTERECTOMY 2003 -APPENDECTOMY 2003 -LEFT SALPINGO-OOPHORECTOMY AND CHOLECYSTECTOMY 07/28/2016 -GASTRIC SLEEVE 11/17/2016 -TUMMY TUCK -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 HEMORRHOIDS NOTED OTHERWISE NORMAL Physical Exam Vital Signs Vital Signs - First Documented 10/06/20 20:16 Temp 35.7 Pulse 87 Resp 18 B/P (MAP) 124/70 (88) Pulse Ox 98 O2 Delivery Room Air Capillary Refill : Height, Weight, BMI Height: 5'2.00" Weight: 165lbs. 0oz. 74.999439fo; 37.00 BMI Method:Stated Progress/Results/Core Measures Results/Orders My Orders Orders - ROLANDO PEREZ PATTERN DRUM MAKER Ketorolac Injection (Toradol Injection) (10/06/20 20:30) Orphenadrine Inj (Ed Only) (Norflex Inje (10/06/20 20:30) Pelvis With Right Hip 2-3views (10/06/20 20:24) Medications Given in ED Current Medications Medications Dose Ordered Sig/Rachelle Route Start Time Stop Time Status Last Admin Dose Admin Ketorolac Tromethamine 30 mg ONCE ONCE IVP 10/06/20 20:30 10/06/20 20:31 DC 10/06/20 20:40 30 MG Orphenadrine Citrate 60 mg ONCE ONCE IM 10/06/20 20:30 10/06/20 20:31 DC 10/06/20 20:40 60 MG Vital Signs/I&O 10/06/20 20:16 Temp 35.7 Pulse 87 Resp 18 B/P (MAP) 124/70 (88) Pulse Ox 98 O2 Delivery Room Air Departure Impression Primary Impression: Pinched nerve Additional Impression: Hip pain Disposition: HOME, SELF-CARE Condition: Improved Departure-Patient Inst. Decision time for Depature: 21:15 Referrals: [facility] [place] (PCP/Family) Primary Care Physician Patient Instructions: Hip Pain (DC) Add. Discharge Instructions: Plan: 1. Follow up with your doctor if your symptoms persist. 2. Use ice/heat 20 minutes at a time as needed for pain. 3. Use Tylenol/Ibuprofen per package for pain. 4. Take Flexeril as needed for severe pain. Do not drive while taking. 5. Return for any new, concerning, or worsening symptoms. All discharge instructions reviewed with patient and/or family. Voiced understanding. Scripts Prednisone (Prednisone) 20 Mg Tab 20 MG PO BID for 5 Days, #10 TAB 0 Refills Prov: ROLANDO PEREZ PATTERN DRUM MAKER 10/06/20 Cyclobenzaprine HCl (Cyclobenzaprine HCl) 10 Mg Tablet 10 MG PO Q8H PRN for SPASMS, #15 TAB 0 Refills Prov: ROLANDO PEREZ PATTERN DRUM MAKER 10/06/20 ROLANDO PEREZ PATTERN DRUM MAKER Oct 06, 2020 20:42
[2020-10-06] MEDS ORDERED: CYCL10TA9 PO (21:17)
[2020-10-06] MEDS ORDERED: PRD20T PO (21:21)
--- NOTE | 2020-10-06 21:25 | Diagnostic Imaging Report ---
CLINICAL INDICATIONS: Patient fell a month ago. EXAM: X-ray pelvis, AP view and x-ray of right hip, AP and frog-leg views. COMPARISON: None. FINDINGS: There is no acute fracture or dislocation. There is no significant bone or joint abnormality. Sacroiliac joints are unremarkable. There are surgical clips overlying the left pelvis, the right pelvis and the left iliac wing region. IMPRESSION: There is no acute fracture or dislocation. Dictated by: Dictated on workstation # [id number]
[2020-10-06 21:35] VITALS: BP 103/83
== END 2020-10-06 21:35 | disposition home or self-care (01) ==
LOC: EDUNIT# 19:55 → ER 19:57
DX: G58.9 Mononeuropathy, unspecified (principal); M25.551 Pain in right hip; F41.9 Anxiety disorder, unspecified; E66.9 Obesity, unspecified; E11.9 Type 2 diabetes mellitus without complications; Z68.37 Body mass index [BMI] 37.0-37.9, adult; Z79.899 Other long term (current) drug therapy; Z79.52 Long term (current) use of systemic steroids

== ENCOUNTER 2020-10-11 19:42 | Emergency (ER) | payer SELFPAY ==
[~2020-10-11] VITALS: Ht 157.5 cm; Wt 90.7 kg
[2020-10-11 19:53] VITALS: BP 116/78
--- NOTE | 2020-10-11 20:05 | ED General ---
General Chief Complaint: Abdominal/GI Problems Stated Complaint: VOMITING,NAUSEA,CHILLS,MIGRAINE Source of Information: Patient Exam Limitations: No Limitations History of Present Illness Date Seen by Provider: Oct 11, 2020 Time Seen by Provider: 20:03 Initial Comments To ER with chills, headache, nausea, vomiting, body aches. The vomiting started today. Everything else started "a while" ago and she is not exactly sure when. She works at [employer] here in [place]. She has had her Covid vaccine. Timing/Duration: 1-2 Days Severity: Moderate Associated Systoms: Cough, Headaches, Nausea/Vomiting, Weakness Allergies and Home Medications Allergies Coded Allergies: No Known Drug Allergies (Unverified , 06/01/20) Home Medications Benzonatate 100 Mg Capsule, 200 MG PO TID Prescribed by: TIFFANY FRANCIS on 06/01/20435 Cephalexin 500 Mg Capsule, 500 MG PO QID Prescribed by: NINO SUMNER on 02/21/19 2352 Cyclobenzaprine HCl 10 Mg Tablet, 10 MG PO TID PRN for SPASMS Prescribed by: NINO SUMNER on 06/25/19 1016 Cyclobenzaprine HCl 10 Mg Tablet, 10 MG PO Q8H PRN for SPASMS Prescribed by: ROLANDO PEREZ on 10/06/20 211 Guaifenesin/Dextromethorphan 1 Each Tbmp.12hr, 1 EACH PO BID Prescribed by: TIFFANY FRANCIS on 06/01/20435 Hydroxyzine HCl 25 Mg Tablet, 25 MG PO Q4H Prescribed by: JAELYN MORALES on 02/23/19 1508 Methylprednisolone 4 Mg Tab.ds.pk, 4 MG PO UD PER DOSE PACK INSTRUCTIONS Prescribed by: TIFFANY FRANCIS on 06/01/20435 Naproxen 500 Mg Tablet, 500 MG PO BID Prescribed by: JEREMY MAC on 09/29/19 1429 Ondansetron 4 Mg Tab.rapdis, 4 MG SL Q4H PRN for NAUSEA/VOMITING Prescribed by: NINO SUMNER on 07/07/20 1616 Oseltamivir Phosphate 75 Mg Cap, 75 MG PO BID Prescribed by: TIFFANY FRANCIS on 06/01/20435 Prednisone 20 Mg Tab, 20 MG PO BID Prescribed by: ROLANDO PEREZ on 10/06/202120 Promethazine HCl/Codeine 5 Ml Syrup, 5 ML PO Q4H PRN for COUGH Prescribed by: NINO SUMNER on 07/07/20 1619 Patient Home Medication List Home Medication List Reviewed: Yes Review of Systems Review of Systems Constitutional: see HPI, chills EENTM: see HPI Respiratory: see HPI, cough Cardiovascular: no symptoms reported Genitourinary: no symptoms reported Musculoskeletal: no symptoms reported Skin: no symptoms reported Psychiatric/Neurological: No Symptoms Reported Hematologic/Lymphatic: No Symptoms Reported Past Emoqgjy-Ptykzr-Hhgqkf Hx Immunizations Up To Date Tetanus Booster (TDap): Unknown PED Vaccines UTD: Yes Seasonal Allergies Seasonal Allergies: No Past Medical History Surgeries: Yes (L KNEE X2 / R KNEE SCOPE;C/S x4;GASTRIC SLEEVE;TUMMY TUCK;L WRIST;R ELBOW) Abdominal, Appendectomy, Section, Gallbladder, Hysterectomy, Oophorectomy, Orthopedic, Tubal Ligation Respiratory: No Currently Using CPAP: No Currently Using BIPAP: No Cardiac: Yes High Cholesterol Neurological: No Reproductive Disorders: No Female 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 Sexually Transmitted Disease: No HIV/AIDS: No Genitourinary: Yes Kidney Infection, Bladder Infection, Kidney Stones, UTI-Chronic Gastrointestinal: Yes (S/P APPY, ROSALIO, GASTRIC SLEEVE, TUMMY TUCK) Chronic Diarrhea, Gall Bladder Disease, Irritable Bowel Musculoskeletal: Yes (BILAT KNEE SCOPES; L WRIST; R ELBOW) Arthritis Endocrine: Yes (OBESITY) Diabetes, Non-Insulin dep HEENT: No Loss of Vision: Bilateral Hearing Impairment: Denies Cancer: No Psychosocial: Yes Anxiety Integumentary: No Recent Skin Changes Blood Disorders: No Adverse Reaction/Blood Tranf: No Family Medical History No Pertinent Family Hx ADDIITIONAL SURGICAL/PROCEDURAL HISTORY: -LEFT KNEE ARTHROSCOPY 07/2015 AND 12/2015 -RIGHT KNEE ARTHROSCOPY - X 4 -HYSTERECTOMY 2003 -APPENDECTOMY 2003 -LEFT SALPINGO-OOPHORECTOMY AND CHOLECYSTECTOMY 07/28/2016 -GASTRIC SLEEVE 11/17/2016 -TUMMY TUCK -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 0oz. 74.282963fv; 36.00 BMI Method:Stated General Appearance: No Apparent Distress, WD/WN Eyes: Bilateral Eye Normal Inspection, Bilateral Eye PERRL, Bilateral Eye EOMI HEENT: PERRL/EOMI, TMs Normal Neck: Full Range of Motion, Normal Inspection Respiratory: No Accessory Muscle Use, No Respiratory Distress Cardiovascular: Regular Rate, Rhythm, Normal Peripheral Pulses Gastrointestinal: Normal Bowel Sounds, Non Tender, Soft Extremity: Normal Capillary Refill, Normal Inspection 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: Alert, Oriented x3 Skin: Normal Color, Warm/Dry Progress/Results/Core Measures Suspected Sepsis SIRS Temperature: Pulse: Respiratory Rate: Laboratory Tests 10/11/20 20:04: White Blood Count 7.7 Blood Pressure / Mean: Laboratory Tests 10/11/20 20:04: Creatinine 0.79, Platelet Count 291, Total Bilirubin 0.3 Results/Orders Lab Results Laboratory Tests Test 10/11/20 20:04 Range/Units White Blood Count 7.7 4.3-11.0 10^3/uL Red Blood Count 4.67 3.80-5.11 10^6/uL Hemoglobin 12.8 11.5-16.0 g/dL Hematocrit 40 35-52 % Mean Corpuscular Volume 85 80-99 fL Mean Corpuscular Hemoglobin 27 25-34 pg Mean Corpuscular Hemoglobin Concent 32 32-36 g/dL Red Cell Distribution Width 14.6 H 10.0-14.5 % Platelet Count 291 130-400 10^3/uL Mean Platelet Volume 9.1 9.0-12.2 fL Immature Granulocyte % (Auto) 0 % Neutrophils (%) (Auto) 56 42-75 % Lymphocytes (%) (Auto) 32 12-44 % Monocytes (%) (Auto) 7 0-12 % Eosinophils (%) (Auto) 5 0-10 % Basophils (%) (Auto) 1 0-10 % Neutrophils # (Auto) 4.3 1.8-7.8 10^3/uL Lymphocytes # (Auto) 2.5 1.0-4.0 10^3/uL Monocytes # (Auto) 0.5 0.0-1.0 10^3/uL Eosinophils # (Auto) 0.4 H 0.0-0.3 10^3/uL Basophils # (Auto) 0.1 0.0-0.1 10^3/uL Immature Granulocyte # (Auto) 0.0 0.0-0.1 10^3/uL Sodium Level 141 135-145 MMOL/L Potassium Level 4.0 3.6-5.0 MMOL/L Chloride Level 109 H 98-107 MMOL/L Carbon Dioxide Level 24 21-32 MMOL/L Anion Gap 8 5-14 MMOL/L Blood Urea Nitrogen 14 7-18 MG/DL Creatinine 0.79 0.60-1.30 MG/DL Estimat Glomerular Filtration Rate > 60 BUN/Creatinine Ratio 18 Glucose Level 95 70-105 MG/DL Calcium Level 9.2 8.5-10.1 MG/DL Corrected Calcium 9.2 8.5-10.1 MG/DL Total Bilirubin 0.3 0.1-1.0 MG/DL Aspartate Amino Transf (AST/SGOT) 16 5-34 U/L Alanine Aminotransferase (ALT/SGPT) 14 0-55 U/L Alkaline Phosphatase 65 40-136 U/L C-Reactive Protein High Sensitivity 1.49 H 0.00-0.50 MG/DL Total Protein 7.9 6.4-8.2 GM/DL Albumin 4.0 3.2-4.5 GM/DL Influenza Type A (RT-PCR) Not Detected Not Detecte Influenza Type B (RT-PCR) Not Detected Not Detecte SARS-CoV-2 RNA (RT-PCR) Not Detected Not Detecte My Orders Orders - JAELYN MORALES APRN Covid 19 Inhouse Test (10/11/20 19:50) Influenza A And B By Pcr (10/11/20 19:50) Cbc With Automated Diff (10/11/20 20:01) Hs C Reactive Protein (10/11/20 20:01) Comprehensive Metabolic Panel (10/11/20 20:01) Ed Iv/Invasive Line Start (10/11/20 20:01) Ua Culture If Indicated (10/11/20 20:01) Ketorolac Injection (Toradol Injection) (10/11/20 20:15) Prochlorperazine Injection (Compazine In (10/11/20 20:15) Diphenhydramine Injection (Benadryl Inje (10/11/20 20:15) Chest 1 View, Ap/Pa Only (10/11/20 20:21) Medications Given in ED Current Medications Medications Dose Ordered Sig/Rachelle Route Start Time Stop Time Status Last Admin Dose Admin Diphenhydramine HCl 25 mg ONCE ONCE IVP 10/11/20 20:15 10/11/20 20:16 DC 10/11/20 20:18 25 MG Ketorolac Tromethamine 15 mg ONCE ONCE IVP 10/11/20 20:15 10/11/20 20:16 DC 10/11/20 20:17 15 MG Prochlorperazine Edisylate 5 mg ONCE ONCE IV 10/11/20 20:15 10/11/20 20:16 DC 10/11/20 20:17 5 MG Vital Signs/I&O 10/11/20 10/11/20 19:53 20:00 Temp 36.9 Pulse 73 Resp 18 B/P (MAP) 116/78 (91) O2 Delivery Room Air Room Air Capillary Refill : Departure Impression Primary Impression: Viral syndrome Disposition: 01 HOME, SELF-CARE Condition: Stable Departure-Patient Inst. Decision time for Depature: 20:49 Referrals: [facility] (PCP/Family) Primary Care Physician Patient Instructions: Viral Syndrome (DC) Work/School Note: Work Release Form Date Seen in the Emergency Department: Oct 11, 2020 Return to Work: Oct 15, 2020 JAELYN MORALES APRN Oct 11, 2020 20:05
[2020-10-11 20:09] LABS: BASOPHILS # (AUTO) 0.1 10^3/uL (0.0-0.1); BASOPHILS % (AUTO) 1 % (0-10); EOSINOPHILS # (AUTO) 0.4 10^3/uL (0.0-0.3); EOSINOPHILS % (AUTO) 5 % (0-10); HEMATOCRIT 40 % (35-52); HEMOGLOBIN 12.8 g/dL (11.5-16.0); LYMPHOCYTES # (AUTO) 2.5 10^3/uL (1.0-4.0); LYMPHOCYTES % (AUTO) 32 % (12-44); MEAN CORPUSCULAR HEMOGLOBIN 27 pg (25-34); MEAN CORPUSCULAR HGB CONC 32 g/dL (32-36); MEAN CORPUSCULAR VOLUME 85 fL (80-99); MEAN PLATELET VOLUME 9.1 fL (9.0-12.2); MONOCYTES # (AUTO) 0.5 10^3/uL (0.0-1.0); MONOCYTES % (AUTO) 7 % (0-12); NEUTROPHILS # (AUTO) 4.3 10^3/uL (1.8-7.8); NEUTROPHILS % (AUTO) 56 % (42-75); PLATELET COUNT 291 10^3/uL (130-400); WHITE BLOOD COUNT 7.7 10^3/uL (4.3-11.0)
[2020-10-11] MEDS ORDERED: diphenhydrAMINE 50 MG/ML INJ (BENADRYL) IVP ONE (20:15)
[2020-10-11] MEDS ORDERED: PROCHLORPERAZINE 10 MG/2ML INJ (COMPAZINE) IV ONE (20:15)
[2020-10-11] MEDS ORDERED: KETOROLAC 30 MG/ML VIAL IVP ONE (20:15)
[2020-10-11 20:33] LABS: CHLORIDE 109 MMOL/L (98-107)
[2020-10-11 20:34] LABS: SODIUM 141 MMOL/L (135-145)
[2020-10-11 20:35] LABS: CALCIUM 9.2 MG/DL (8.5-10.1)
[2020-10-11 20:36] LABS: GLUCOSE 95 MG/DL (70-105); TOTAL PROTEIN 7.9 GM/DL (6.4-8.2)
[2020-10-11 20:37] LABS: CARBON DIOXIDE 24 MMOL/L (21-32)
[2020-10-11 20:38] LABS: BILIRUBIN,TOTAL 0.3 MG/DL (0.1-1.0)
[2020-10-11 20:39] LABS: ALKALINE PHOSPHATASE 65 U/L (40-136)
[2020-10-11 20:40] LABS: CREATININE SERUM 0.79 MG/DL (0.60-1.30); GFR ESTIMATED > 60
[2020-10-11 20:41] LABS: BUN/CREATININE RATIO 18
[2020-10-11 20:43] LABS: ALANINE AMINOTRANSFERASE 14 U/L (0-55)
--- NOTE | 2020-10-11 20:52 | Diagnostic Imaging Report ---
INDICATION: Headache. COMPARISON: 07/07/2020. EXAMINATION: Single view of the chest. FINDINGS: Clear lungs, bilaterally. The heart is normal. There is no pneumothorax but osseous structures are normal. IMPRESSION: Negative chest. Dictated by: Dictated on workstation # [id number]
[2020-10-11 21:22] LABS: BILIRUBIN,URINE NEGATIVE (NEGATIVE); CLARITY,URINE CLEAR; COLOR,URINE YELLOW; GLUCOSE, URINE (UA) NEGATIVE (NEGATIVE); KETONES,URINE NEGATIVE (NEGATIVE); LEUKOCYTE ESTERASE ,URINE NEGATIVE (NEGATIVE); NITRITE,URINE NEGATIVE (NEGATIVE); PH,URINE 5.5 (5-9); PROTEIN,URINE NEGATIVE (NEGATIVE)
[2020-10-11 21:38] LABS: BACTERIA,URINE NEGATIVE /HPF
== END 2020-10-11 20:50 | disposition home or self-care (01) ==
LOC: EDUNIT# 19:42 → ER 19:48
DX: B34.9 Viral infection, unspecified (principal); F41.9 Anxiety disorder, unspecified; E66.9 Obesity, unspecified; E11.9 Type 2 diabetes mellitus without complications; Z68.36 Body mass index [BMI] 36.0-36.9, adult; Z20.822 Contact with and (suspected) exposure to COVID-19; Z79.52 Long term (current) use of systemic steroids; Z79.899 Other long term (current) drug therapy
CPT/HCPCS: 36415; 71045; 80053; 81000; 85025; 86141; 87636

== ENCOUNTER 2020-10-29 17:18 | Emergency (ER) | payer SELFPAY ==
[~2020-10-29] VITALS: Ht 157 cm; Wt 90.7 kg
[~2020-10-29 17:18] MED LIST changes: -PHEN37.53; +PHEN37.58
[2020-10-29] MEDS ORDERED: ASPIRIN 81 MG CHEW (CHILDREN'S ASA) PO ONE (18:00)
[2020-10-29 18:03] LABS: BASOPHILS % (AUTO) 1 % (0-10); EOSINOPHILS # (AUTO) 0.2 10^3/uL (0.0-0.3); EOSINOPHILS % (AUTO) 3 % (0-10); HEMATOCRIT 40 % (35-52); HEMOGLOBIN 12.9 g/dL (11.5-16.0); LYMPHOCYTES # (AUTO) 2.3 10^3/uL (1.0-4.0); LYMPHOCYTES % (AUTO) 38 % (12-44); MEAN CORPUSCULAR HEMOGLOBIN 27 pg (25-34); MEAN CORPUSCULAR HGB CONC 33 g/dL (32-36); MEAN CORPUSCULAR VOLUME 84 fL (80-99); MEAN PLATELET VOLUME 9.3 fL (9.0-12.2); MONOCYTES # (AUTO) 0.4 10^3/uL (0.0-1.0); MONOCYTES % (AUTO) 7 % (0-12); NEUTROPHILS # (AUTO) 3.2 10^3/uL (1.8-7.8); NEUTROPHILS % (AUTO) 52 % (42-75); PLATELET COUNT 276 10^3/uL (130-400)
[2020-10-29 18:16] LABS: ALBUMIN 4.1 GM/DL (3.2-4.5); POTASSIUM 4.1 MMOL/L (3.6-5.0)
[2020-10-29 18:18] LABS: CALCIUM 9.2 MG/DL (8.5-10.1)
[2020-10-29 18:19] LABS: TOTAL PROTEIN 8.1 GM/DL (6.4-8.2)
[2020-10-29 18:21] LABS: BILIRUBIN,TOTAL 0.4 MG/DL (0.1-1.0)
[2020-10-29 18:22] LABS: CREATININE SERUM 0.73 MG/DL (0.60-1.30)
[2020-10-29 18:25] LABS: MAGNESIUM 2.2 MG/DL (1.6-2.4); PROTHROMBIN TIME PATIENT 13.9 SEC (12.2-14.7)
--- NOTE | 2020-10-29 18:28 | ED General ---
General Chief Complaint: Chest Pain Stated Complaint: COVID+,DIZZINESS,CP,FATIGUE Nursing Triage Note: pt presents to ed with complaints of cp with inspiration starting today and increased dizziness. pt was daignosed with covid on 10/21/20 Source of Information: Patient History of Present Illness Date Seen by Provider: Oct 29, 2020 Time Seen by Provider: 18:00 Initial Comments PT ARRIVES VIA POV FROM HOME STATES SHE STARTED GETTING SICK ON 10/20/20, AND TESTED + FOR COVID-19 ON 10/21/[address] [facility] [address] THRU TESTING WAS NOT ACTUALLY SEEN / EXAMINED BY ANYONE, HAS NOT HAD ANY TREATMENT OR FOLLOWED UP WITH ANYONE C/O PRODUCTIVE COUGH C/O SLIGHT SHORTNESS OF BREATH HAS HAD FEVER UP TO 100.5--WAS ONLY 99 YESTERDAY AND NO FEVER TODAY HAS HAD LOSS OF TASTE AND SMELL HAS HAD SOME NAUSEA, NO VOMITING, BUT DECREASED APPETITE--NOT EATING OR DRINKING MUCH USUAL HAD DIARRHEA, BUT HAS NOT HAD ANY FOR THE LAST 2 DAYS AND IS NOW HAVING NORMAL BM'S HAS HAD HEADACHES, BUT NOT NOW HAS HAD BODY ACHES, BUT GETTING BETTER. SINCE YESTERDAY, SHE HAS HAD A LITTLE BIT OF CHEST DISCOMFORT ONLY ON TAKING A DEEP BREATH NO SWELLING IN LEGS/ FEET OR PAIN IN CALVES NO PALPITATIONS NO DIZZINESS OR SYNCOPE HAS NOT TAKEN ANYTHING FOR SYMPTOMS AT ANY TIME SYMPTOMS NO DIFFERENT TODAY HAS NOT SOUGHT CARE UNTIL TODAY PT DID RECEIVE BOTH MODERNA VACCINES--SECOND ONE WAS IN MAY 28 PEOPLE LIVE IN HOME, NO ONE ELSE IS ILL NO HISTORY OF RESPIRATORY PROBLEMS NO HISTORY OF CARDIAC PROBLEMS PT IS NOT DIABETIC DENIES ANY CHRONIC ILLNESSES PCP: [facility] Allergies and Home Medications Allergies Coded Allergies: No Known Drug Allergies (Unverified , 06/01/20) Home Medications Azithromycin 500 Mg Tablet, 500 MG PO DAILY Prescribed by: TIFFANY FRANCIS on 10/29/201909 Benzonatate 100 Mg Capsule, 200 MG PO TID Prescribed by: TIFFANY FRANCIS on 06/01/20435 Benzonatate 100 Mg Capsule, 100 MG PO TID Prescribed by: TIFFANY FRANCIS on 10/29/201909 Cefdinir 300 Mg Capsule, 300 MG PO BID Prescribed by: TIFFANY FRANCIS on 10/29/201909 Cephalexin 500 Mg Capsule, 500 MG PO QID Prescribed by: NINO SUMNER on 02/21/19 2352 Cyclobenzaprine HCl 10 Mg Tablet, 10 MG PO TID PRN for SPASMS Prescribed by: NINO SUMNER on 06/25/19 1016 Cyclobenzaprine HCl 10 Mg Tablet, 10 MG PO Q8H PRN for SPASMS Prescribed by: ROLANDO PEREZ on 10/06/20 2117 Dexamethasone 6 Mg Tablet, 6 MG PO DAILY Prescribed by: TIFFANY FRANCIS on 10/29/20 1910 Guaifenesin/Dextromethorphan 1 Each Tbmp.12hr, 1 EACH PO BID Prescribed by: TIFFANY FRANCIS on 06/01/20 0436 Hydroxyzine HCl 25 Mg Tablet, 25 MG PO Q4H Prescribed by: JAELYN MORALES on 02/23/19 1508 Methylprednisolone 4 Mg Tab.ds.pk, 4 MG PO UD PER DOSE PACK INSTRUCTIONS Prescribed by: TIFFANY FRANCIS on 06/01/20 0436 Naproxen 500 Mg Tablet, 500 MG PO BID Prescribed by: JEREMY MAC on 09/29/19 1429 Ondansetron 4 Mg Tab.rapdis, 4 MG SL Q4H PRN for NAUSEA/VOMITING Prescribed by: NINO SUMNER on 07/07/20 1616 Oseltamivir Phosphate 75 Mg Cap, 75 MG PO BID Prescribed by: TIFFANY FRANCIS on 06/01/20 0436 Prednisone 20 Mg Tab, 20 MG PO BID Prescribed by: ROLANDO PEREZ on 10/06/20 2121 Promethazine HCl/Codeine 5 Ml Syrup, 5 ML PO Q4H PRN for COUGH Prescribed by: NINO SUMNER on 07/07/20 1619 Patient Home Medication List Home Medication List Reviewed: Yes Review of Systems Review of Systems Constitutional: see HPI EENTM: see HPI Respiratory: see HPI Cardiovascular: see HPI Gastrointestinal: see HPI Genitourinary: no symptoms reported Musculoskeletal: see HPI Skin: no symptoms reported Psychiatric/Neurological: See HPI Hematologic/Lymphatic: No Symptoms Reported Immunological/Allergic: no symptoms reported Past Dxvpucb-Rveovl-Hifxxi Hx Patient Social History Tobacco Use?: No Substance use?: No Alcohol Use?: No Pt feels they are or have been: No Immunizations Up To Date Tetanus Booster (TDap): Unknown PED Vaccines UTD: Yes First/Initial COVID19 Vaccinat: apr Second COVID19 Vaccination Marco: may COVID19 Vaccine Executive Vp: modernmonique Seasonal Allergies Seasonal Allergies: No Past Medical History Surgery/Hospitalization HX: C-SECTIONS X 4 LEFT KNEE ARTHROSCOPY X 2 --07/2015 AND 12/2015 RIGHT KNEE SCOPE X 1 GASTRIC SLEEVE--11/17/2016 "TUMMY TUCK" LEFT WRIST SURGERY RIGHT ELBOW SURGERY APPENDECTOMY--2003 CHOLECYSTECTOMY AND LEFT SALPINGO-OOPHORECTOMY 07/28/2016 HYSTERECTOMY---2003 BILATERAL TUBAL LIGATION 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 Sexually Transmitted Disease: No HIV/AIDS: No Genitourinary: Yes Kidney Infection, Bladder Infection, Kidney Stones, UTI-Chronic Gastrointestinal: Yes (S/P APPY, ROSALIO, GASTRIC SLEEVE, TUMMY TUCK) Chronic Diarrhea, Gall Bladder Disease, Irritable Bowel Musculoskeletal: Yes (BILAT KNEE SCOPES; L WRIST; R ELBOW) Arthritis Endocrine: Yes (OBESITY) Diabetes, Non-Insulin dep HEENT: No Loss of Vision: Bilateral Hearing Impairment: Denies Cancer: No Psychosocial: Yes Anxiety Integumentary: No (MULTIPLE TATTOOS) Blood Disorders: No Adverse Reaction/Blood Tranf: No Family Medical History No Pertinent Family Hx ADDIITIONAL SURGICAL/PROCEDURAL HISTORY: -LEFT KNEE ARTHROSCOPY 07/2015 AND 12/2015 -RIGHT KNEE ARTHROSCOPY - X 4 -HYSTERECTOMY 2003 -APPENDECTOMY 2003 -LEFT SALPINGO-OOPHORECTOMY AND CHOLECYSTECTOMY 07/28/2016 -GASTRIC SLEEVE 11/17/2016 -TUMMY TUCK -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 HEMORRHOIDS NOTED OTHERWISE NORMAL Physical Exam Vital Signs Vital Signs - First Documented 10/29/20 17:54 Temp 36.6 Pulse 70 Resp 18 B/P (MAP) 112/76 (88) Pulse Ox 99 O2 Delivery Room Air Capillary Refill : Less Than 3 Seconds Height, Weight, BMI Height: 5'2.00" Weight: 165lbs. 0oz. 74.107855sg; 36.00 BMI Method:Stated General Appearance: No Apparent Distress, WD/WN, Other (DOES NOT APPEAR ILL OR TO BE IN ANY DISCOMFORT OR DISTRESS. 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 Skin: Normal Color, Warm/Dry; No Rash Progress/Results/Core Measures Suspected Sepsis SIRS Temperature: Pulse: 70 Respiratory Rate: 18 Laboratory Tests 10/29/20 17:44: White Blood Count 6.0 Blood Pressure 112 /76 Mean: 88 Laboratory Tests 10/29/20 17:44: Creatinine 0.73, INR Comment 1.0, Platelet Count 276, Total Bilirubin 0.4 Results/Orders Lab Results Laboratory Tests Test 10/29/20 17:44 Range/Units White Blood Count 6.0 4.3-11.0 10^3/uL Red Blood Count 4.72 3.80-5.11 10^6/uL Hemoglobin 12.9 11.5-16.0 g/dL Hematocrit 40 35-52 % Mean Corpuscular Volume 84 80-99 fL Mean Corpuscular Hemoglobin 27 25-34 pg Mean Corpuscular Hemoglobin Concent 33 32-36 g/dL Red Cell Distribution Width 14.3 10.0-14.5 % Platelet Count 276 130-400 10^3/uL Mean Platelet Volume 9.3 9.0-12.2 fL Immature Granulocyte % (Auto) 0 % Neutrophils (%) (Auto) 52 42-75 % Lymphocytes (%) (Auto) 38 12-44 % Monocytes (%) (Auto) 7 0-12 % Eosinophils (%) (Auto) 3 0-10 % Basophils (%) (Auto) 1 0-10 % Neutrophils # (Auto) 3.2 1.8-7.8 10^3/uL Lymphocytes # (Auto) 2.3 1.0-4.0 10^3/uL Monocytes # (Auto) 0.4 0.0-1.0 10^3/uL Eosinophils # (Auto) 0.2 0.0-0.3 10^3/uL Basophils # (Auto) 0.0 0.0-0.1 10^3/uL Immature Granulocyte # (Auto) 0.0 0.0-0.1 10^3/uL Prothrombin Time 13.9 12.2-14.7 SEC INR Comment 1.0 0.8-1.4 Activated Partial Thromboplast Time 31 24-35 SEC Sodium Level 143 135-145 MMOL/L Potassium Level 4.1 3.6-5.0 MMOL/L Chloride Level 108 H 98-107 MMOL/L Carbon Dioxide Level 23 21-32 MMOL/L Anion Gap 12 5-14 MMOL/L Blood Urea Nitrogen 13 7-18 MG/DL Creatinine 0.73 0.60-1.30 MG/DL Estimat Glomerular Filtration Rate 85 BUN/Creatinine Ratio 18 Glucose Level 82 70-105 MG/DL Calcium Level 9.2 8.5-10.1 MG/DL Corrected Calcium 9.1 8.5-10.1 MG/DL Magnesium Level 2.2 1.6-2.4 MG/DL Total Bilirubin 0.4 0.1-1.0 MG/DL Aspartate Amino Transf (AST/SGOT) 15 5-34 U/L Alanine Aminotransferase (ALT/SGPT) 11 0-55 U/L Alkaline Phosphatase 59 40-136 U/L Myoglobin 18.1 10.0-92.0 NG/ML Troponin I < 0.028 <0.028 NG/ML B-Type Natriuretic Peptide 16.6 <100.0 PG/ML Total Protein 8.1 6.4-8.2 GM/DL Albumin 4.1 3.2-4.5 GM/DL My Orders Orders - TIFFANY FRANCIS DO BNP (10/29/20 18:16) Dexamethasone Injection (Decadron Inje (10/29/20 19:15) Ceftriaxone (Rocephin) (10/29/20 19:15) Azithromycin Tablet (Zithromax Tablet) (10/29/20 19:15) Rt Request For Service (10/29/20 19:04) Rx-Albuterol Inhaler (Rx-Ventolin Hfa In (10/29/20 19:04) Medications Given in ED Current Medications Medications Dose Ordered Sig/Rachelle Route Start Time Stop Time Status Last Admin Dose Admin Aspirin 324 mg ONCE ONCE PO 10/29/20 18:00 10/29/20 18:01 DC 10/29/20 18:04 324 MG Vital Signs/I&O 10/29/20 10/29/20 17:54 17:54 Temp 36.6 Pulse 70 Resp 18 B/P (MAP) 112/76 (88) Pulse Ox 99 O2 Delivery Room Air Capillary Refill : Less Than 3 Seconds Blood Pressure Mean: 88 Progress Note : Progress Note PLACED IN ISOLATION ROOM PPE WORN AT ALL TIMES NO FEVER NO COUGH NO DYSPNEA NO HYPOXIA NO ABNORMAL VITALS DISCUSSED REGEN-COV INFUSION, AND PT WOULD LIKE TO PROCEED PT MEETS CRITERIA BASED ON BMI > 25 RISKS/BENEFITS DISCUSSED WITH PATIENT ECG Initial ECG Impression Date: Oct 29, 2020 Initial ECG Impression Time: 17:41 Initial ECG Rate: 65 Initial ECG Rhythm: Normal Sinus Diagnostic Imaging Comments CXR--PER RADIOLOGIST REPORT AT 1859 FINDINGS: The lung volumes are normal. Small amount of hazy opacities are seen in the right lung base, new since the prior exam. No large pleural effusion or pneumothorax is seen. The cardiomediastinal silhouette is normal in size and contour. No acute osseous abnormality is seen. IMPRESSION: Hazy opacities in the right lung base which are new since the prior exam and may represent the patient's history of COVID infection. Reviewed: Reviewed by Me Departure Impression Primary Impression: Pneumonia due to COVID-19 virus Disposition: 01 HOME, SELF-CARE Condition: Stable Departure-Patient Inst. Decision time for Depature: 19:00 Referrals: [facility] (PCP/Family) Primary Care Physician Patient Instructions: COVID-19 ED, REGEN-COV (casirivimab and imdevimab) FDA Fact Sheet, Recovery After COVID-19, Preventing the Spread of an Infectious Disease, Pneumonia, Adult (DC) Add. Discharge Instructions: CONTINUE QUARANTINE FOR AT LEAST ANOTHER WEEK, OR UNTIL CLEARED BY YOUR DR USE ALBUTEROL INHALER WITH SPACER--2 PUFFS EVERY 4 HOURS NEEDED FOR SHORTNESS OF BREATH TYLENOL AND MOTRIN NEEDED FOR PAIN OR FEVER OVER THE COUNTER MUCINEX DM FOR COUGH LOTS OF CLEAR LIQUIDS--WATER, BROTH, JELLO, GATORADE CALL IN THE MORNING TO SCHEDULE REGEN-COV INFUSION FOLLOW UP WITH [facility] IN 2-3 DAYS FOR FURTHER CARE, RETURN TO ER IF WORSE All discharge instructions reviewed with patient and/or family. Voiced understanding. Scripts Benzonatate (TESSALON PERLES) 100 Mg Capsule 100 MG PO TID, #30 CAP Prov: TIFFANY FRANCIS DO 10/29/20 Azithromycin (Zithromax) 500 Mg Tablet 500 MG PO DAILY for 5 Days, #5 TAB Prov: TIFFANY FRANCIS DO 10/29/20 Cefdinir (Cefdinir) 300 Mg Capsule 300 MG PO BID, #20 CAP Prov: TIFFANY FRANCIS DO 10/29/20 Dexamethasone (Decadron) 6 Mg Tablet 6 MG PO DAILY, #10 TAB Prov: TIFFANY FRANCIS DO 10/29/20 TIFFANY FRANCIS DO Oct 29, 2020 18:28
--- NOTE | 2020-10-29 18:53 | Diagnostic Imaging Report ---
EXAMINATION: Chest 1 view. HISTORY: Chest pain. COVID positive. COMPARISON: 10/11/2020. FINDINGS: The lung volumes are normal. Small amount of hazy opacities are seen in the right lung base, new since the prior exam. No large pleural effusion or pneumothorax is seen. The cardiomediastinal silhouette is normal in size and contour. No acute osseous abnormality is seen. IMPRESSION: Hazy opacities in the right lung base which are new since the prior exam and may represent the patient's history of COVID infection. Dictated by: Dictated on workstation # [id number]
[2020-10-29] MEDS ORDERED: RX-ALBUTEROL INHALER 8.5 GM HFA (PROAIR) IH STA (19:04)
[2020-10-29] MEDS ORDERED: AZIT500T PO (19:10)
[2020-10-29] MEDS ORDERED: CEFD300C3 PO (19:10)
[2020-10-29] MEDS ORDERED: DEXA6TAB6 PO (19:10)
[2020-10-29] MEDS ORDERED: BENZ100C18 PO (19:10)
[2020-10-29] MEDS ORDERED: cefTRIAXone 1,000 MG in WATER (STERILE) FOR INJECTION 10 ML IV ONE (19:15)
[2020-10-29] MEDS ORDERED: AZITHROMYCIN 250 MG TAB (ZITHROMAX) PO ONE (19:15)
[2020-10-29 19:40] VITALS: BP 105/68
== END 2020-10-29 19:40 | disposition home or self-care (01) ==
LOC: EDUNIT# 17:18 → ER 17:21
DX: U07.1 COVID-19 (principal); J12.82 Pneumonia due to coronavirus disease 2019; F41.9 Anxiety disorder, unspecified; E66.9 Obesity, unspecified; E11.9 Type 2 diabetes mellitus without complications; Z68.36 Body mass index [BMI] 36.0-36.9, adult; Z79.52 Long term (current) use of systemic steroids; Z79.899 Other long term (current) drug therapy
CPT/HCPCS: 36415; 71045; 80053; 83735; 83874; 83880; 84484; 85025; 85610; 85730; 93005; 93041

== ENCOUNTER 2020-10-30 09:07 | Outpatient (CLI) | payer SELFPAY ==
[~2020-10-30] VITALS: Ht 157 cm; Wt 90.7 kg
[2020-10-30 09:00] VITALS: BP 129/60
[~2020-10-30 09:07] MED LIST changes: +AZIT500T PO; +CEFD300C3 PO; +DEXA6TAB6 PO
[2020-10-30] MEDS ORDERED: CASIRIVIMAB/IMDEVIMAB 1,200 MG in NS (IVPB) 250 ML IV ONE (09:15)
[2020-10-30] MEDS ORDERED: diphenhydrAMINE 50 MG/ML INJ (BENADRYL) IV PRN (09:15)
[2020-10-30] MEDS ORDERED: EPINEPHrine INJECTION 1 MG/ML AMP IM PRN (09:15)
[2020-10-30 10:14] VITALS: BP_SYST 61
== END 2020-10-30 11:06 | disposition home or self-care (01) ==
LOC: INFUSION 09:07
PROVIDERS: ATTEND Emergency Medicine
DX: Z23 Encounter for immunization (principal); U07.1 COVID-19

== ENCOUNTER → 2021-02-04 | Outpatient (CLI) | payer OTHER ==
--- NOTE | 2021-02-04 12:13 | Diagnostic Imaging Report ---
PROCEDURE: MRI lumbar spine without contrast. TECHNIQUE: Multiplanar, multisequence MRI of the lumbar spine was performed without contrast. INDICATION: Chronic low back pain. No known injury. COMPARISON: 06/20/2017. FINDINGS: 5 lumbar type vertebral bodies are visualized with the last well-formed disc space designated L5-S1. No acute fracture or dislocation is seen in the lumbar spine. Alignment is anatomic. Vertebral body heights are well-maintained. The bone marrow signal is normal. The conus terminates at the L1 level. No masses are seen associated with the conus or nerve roots of the cauda equina. No epidural collections are identified. Multilevel degenerative changes are seen in the lumbar spine with disc bulges, facet hypertrophy, and buckling of the ligamentum flavum. T12-L1: No significant spinal canal or foraminal stenosis. L1-L2: No significant spinal canal or foraminal stenosis. L2-L3: No significant spinal canal or foraminal stenosis. L3-L4: No significant spinal canal or foraminal stenosis. L4-L5: Broad-based disc bulge, facet hypertrophy, and buckling of the ligamentum flavum results in mild spinal canal narrowing and mild bilateral foraminal narrowing. L5-S1: Broad-based disc bulge with central protrusion and annular fissure, facet hypertrophy, and buckling of the ligamentum flavum results in mild spinal canal narrowing and mild bilateral foraminal narrowing. Paravertebral soft tissues are unremarkable. IMPRESSION: 1. No acute fracture or dislocation in the lumbar spine. 2. Multilevel degenerative changes in the lumbar spine, greatest at L4-L5 and L5-S1. Dictated by: Dictated on workstation # [id number]
== END ==
LOC: RAD 01-21 12:12
PROVIDERS: ATTEND Nurse Practitioner
DX: M47.817 Spondylosis without myelopathy or radiculopathy, lumbosacral region (principal)
CPT/HCPCS: 72148

== ENCOUNTER 2021-02-08 18:48 | Emergency (ER) | payer OTHER ==
[~2021-02-08] VITALS: Ht 157.4 cm; Wt 97.9 kg
[2021-02-08] MEDS ORDERED: LACTATED RINGERS 1,000 ML IV ONE (19:00)
[2021-02-08 19:19] LABS: BASOPHILS % (AUTO) 0 % (0-10); EOSINOPHILS # (AUTO) 0.1 10^3/uL (0.0-0.3); EOSINOPHILS % (AUTO) 1 % (0-10); HEMATOCRIT 39 % (35-52); HEMOGLOBIN 12.7 g/dL (11.5-16.0); LYMPHOCYTES # (AUTO) 1.1 10^3/uL (1.0-4.0); LYMPHOCYTES % (AUTO) 12 % (12-44); MEAN CORPUSCULAR HEMOGLOBIN 27 pg (25-34); MEAN CORPUSCULAR HGB CONC 33 g/dL (32-36); MEAN CORPUSCULAR VOLUME 84 fL (80-99); MONOCYTES # (AUTO) 0.5 10^3/uL (0.0-1.0); MONOCYTES % (AUTO) 6 % (0-12); NEUTROPHILS # (AUTO) 7.7 10^3/uL (1.8-7.8); NEUTROPHILS % (AUTO) 81 % (42-75); PLATELET COUNT 241 10^3/uL (130-400); WHITE BLOOD COUNT 9.5 10^3/uL (4.3-11.0)
[2021-02-08 19:22] LABS: ALBUMIN 3.9 GM/DL (3.2-4.5); CHLORIDE 105 MMOL/L (98-107); POTASSIUM 3.7 MMOL/L (3.6-5.0); SODIUM 137 MMOL/L (135-145)
[2021-02-08 19:23] LABS: CALCIUM 8.8 MG/DL (8.5-10.1)
[2021-02-08 19:24] LABS: AMYLASE 74 U/L (25-125); GLUCOSE 95 MG/DL (70-105)
[2021-02-08 19:25] LABS: TOTAL PROTEIN 7.9 GM/DL (6.4-8.2)
[2021-02-08 19:26] LABS: BILIRUBIN,TOTAL 0.6 MG/DL (0.1-1.0); CARBON DIOXIDE 21 MMOL/L (21-32)
[2021-02-08 19:28] LABS: ALKALINE PHOSPHATASE 71 U/L (40-136); CREATININE SERUM 0.77 MG/DL (0.60-1.30); GFR ESTIMATED 80
[2021-02-08 19:29] LABS: BUN/CREATININE RATIO 12; INR 1.1 (0.8-1.4); PROTHROMBIN TIME PATIENT 14.1 SEC (12.2-14.7)
[2021-02-08 19:31] LABS: ALANINE AMINOTRANSFERASE 14 U/L (0-55)
[2021-02-08 19:32] LABS: CREATINE KINASE 110 U/L (29-168); LIPASE 42 U/L (8-78)
[2021-02-08 19:38] LABS: ERYTHROCYTE SEDIMENTATION RATE 54 MM/HR (0-20)
[2021-02-08 19:40] LABS: CREATINE KINASE MB 0.5 NG/ML (<6.6)
[2021-02-08] MEDS ORDERED: ACETAMINOPHEN 325 MG TABLET ONE (19:45)
[2021-02-08 19:59] LABS: BILIRUBIN,URINE NEGATIVE (NEGATIVE); CLARITY,URINE CLEAR; COLOR,URINE YELLOW; GLUCOSE, URINE (UA) NEGATIVE (NEGATIVE); KETONES,URINE NEGATIVE (NEGATIVE); LEUKOCYTE ESTERASE ,URINE TRACE (NEGATIVE); NITRITE,URINE NEGATIVE (NEGATIVE); PH,URINE 7.5 (5-9); PROTEIN,URINE NEGATIVE (NEGATIVE)
[2021-02-08 20:17] LABS: BACTERIA,URINE TRACE /HPF; RENAL EPITHELIAL CELLS,URINE RARE /HPF; SQUAMOUS EPITHELIAL CELL,UR 0-2 /HPF
[2021-02-08 20:19] LABS: AMPHETAMINE SCREEN, URINE NEGATIVE (NEGATIVE); BARBITURATE SCREEN URINE NEGATIVE (NEGATIVE); BENZODIAZEPINES SCREEN URINE NEGATIVE (NEGATIVE); CANNABINOID SCREEN, URINE NEGATIVE (NEGATIVE); COCAINE SCREEN URINE NEGATIVE (NEGATIVE); METHADONE STAT NEGATIVE (NEGATIVE); METHAMPHETAMINE SCREEN URINE S NEGATIVE (NEGATIVE); OPIATE SCREEN URINE NEGATIVE (NEGATIVE); OXYCODONE STAT NEGATIVE (NEGATIVE); PROPOXYPHENE STAT NEGATIVE (NEGATIVE); TRICYCLIC ANTIDEPRESSANTS SCRE NEGATIVE (NEGATIVE)
--- NOTE | 2021-02-08 20:43 | ED Cough/URI ---
General Chief Complaint: COVID19 Suspect/Confirmed Stated Complaint: CP/COUGH Nursing Triage Note: Pt arrival from home via [facility] with complaints of CP/Cough x2 Weeks, N/V/D, SOA, Headache today. Pt states that she had covid earlier this year, and is vaccinated, but states that this feels just like the last time she had covid. Pt denies vomiting, but states that she was nausous today and has had diarrhea. Pain in chest is a 7/10, and described as a sharp pain. (KE AGUILAR) History of Present Illness Date Seen by Provider: Feb 08, 2021 Time Seen by Provider: 18:50 Initial Comments 45-year-old female reports for chestpain for 2 weeks. Today she began having congestion, burning pain, nausea and diarrhea, myalgias and fever. She reports working last evening and symptoms beginning this morning when she returned home. She has slept for most of the day. She had Covid in October 2020 and received the monoclonal antibody infusion. She has received COVID vaccine and the booster. She has not received an influenza vaccine this year. Timing/Duration: this morning Severity/Quality: moderate, dry cough Associated Symptoms: chest pain/soreness, cough, facial pain, fever/chills, muscle aches, nasal congestion, nasal drainage (KE AGUILAR) Allergies and Home Medications Allergies Coded Allergies: No Known Drug Allergies (Unverified , 06/01/20) Patient Home Medication List Home Medication List Reviewed: Yes (KE AGUILAR) Azithromycin (Zithromax) 500 Mg Tablet, 500 MG PO DAILY Prescribed by: TIFFANY FRANCIS on 10/29/201909 Benzonatate (Tessalon Perles) 100 Mg Capsule, 200 MG PO TID Prescribed by: TIFFANY FRANCIS on 06/01/20 0436 Benzonatate (Tessalon Perles) 100 Mg Capsule, 100 MG PO TID Prescribed by: TIFFANY FRANCIS on 10/29/201909 Cefdinir (Cefdinir) 300 Mg Capsule, 300 MG PO BID Prescribed by: TIFFANY FRANCIS on 10/29/201909 Cephalexin (Keflex) 500 Mg Capsule, 500 MG PO QID Prescribed by: NINO SUMNER on 02/21/19 5150 Cyclobenzaprine HCl (Cyclobenzaprine HCl) 10 Mg Tablet, 10 MG PO TID PRN for SPASMS Prescribed by: NINO SUMNER on 06/25/19 1016 Cyclobenzaprine HCl (Cyclobenzaprine HCl) 10 Mg Tablet, 10 MG PO Q8H PRN for SPASMS Prescribed by: ROLANDO PEREZ on 10/06/202116 Dexamethasone (Decadron) 6 Mg Tablet, 6 MG PO DAILY Prescribed by: TIFFANY FRANCIS on 10/29/20 1910 Guaifenesin/Dextromethorphan (Mucinex Dm ER 1,200-60 mg Tab) 1 Each Tbmp.12hr, 1 EACH PO BID Prescribed by: TIFFANY FRANCIS on 06/01/20 0436 Hydroxyzine HCl (Hydroxyzine HCl) 25 Mg Tablet, 25 MG PO Q4H Prescribed by: JAELYN MORALES on 02/23/19 1508 Methylprednisolone (Medrol) 4 Mg Tab.ds.pk, 4 MG PO UD Prescribed by: TIFFANY FRANCIS on 06/01/20 043 Naproxen (Naprosyn) 500 Mg Tablet, 500 MG PO BID Prescribed by: JEREMY MAC on 09/29/19 1429 Ondansetron (Ondansetron Odt) 4 Mg Tab.rapdis, 4 MG SL Q4H PRN for NAUSEA/VOMITING Prescribed by: NINO SUMNER on 07/07/20 161 Oseltamivir Phosphate (Tamiflu) 75 Mg Cap, 75 MG PO BID Prescribed by: TIFFANY FRANCIS on 06/01/20 0436 Phentermine HCl (Phentermine HCl) 37.5 Mg Tablet, (Reported) Entered as Reported by: JAMES MORALES on 02/21/19 2313 Prednisone (Prednisone) 20 Mg Tab, 20 MG PO BID Prescribed by: ROLANDO PEREZ on 10/06/202120 Promethazine HCl/Codeine (Prometh-Codein 6.25-10 mg/5 ml) 5 Ml Syrup, 5 ML PO Q4H PRN for COUGH Prescribed by: NINO SUMNER on 07/07/20 161 Review of Systems Review of Systems Constitutional: see HPI, fever, malaise, weakness EENTM: see HPI, nose congestion Respiratory: see HPI, cough; No short of breath Cardiovascular: see HPI, chest pain Gastrointestinal: see HPI, diarrhea, nausea Musculoskeletal: see HPI, muscle pain, muscle cramps (KE AGUILAR) All Other Systems Reviewed Negative Unless Noted: Yes (KE AGUILAR) Past Pdahcor-Hehefn-Nnyslr Hx Patient Social History Tobacco Use?: No Use of E-Cig and/or Vaping dev: No Substance use?: No Alcohol Use?: No Pt feels they are or have been: No (KE AGUILAR) Immunizations Up To Date Tetanus Booster (TDap): Unknown PED Vaccines UTD: Yes Influenza Vaccine Up-to-Date: No; Not Current First/Initial COVID19 Vaccinat: apr Second COVID19 Vaccination Marco: may COVID19 Vaccine 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 Sexually Transmitted Disease: No HIV/AIDS: No Genitourinary: Yes Kidney Infection, Bladder Infection, Kidney Stones, UTI-Chronic Gastrointestinal: Yes (S/P APPY, ROSALIO, GASTRIC SLEEVE, TUMMY TUCK) Chronic Diarrhea, Gall Bladder Disease, Irritable Bowel Musculoskeletal: Yes (BILAT KNEE SCOPES; L WRIST; R ELBOW) Arthritis Endocrine: Yes (OBESITY) Diabetes, Non-Insulin dep HEENT: No Loss of Vision: Bilateral Hearing Impairment: Denies Cancer: No Psychosocial: Yes Anxiety Integumentary: No (MULTIPLE TATTOOS) Blood Disorders: No Adverse Reaction/Blood Tranf: No (JEFFKE HANSON) Family Medical History Reviewed Nursing Family Hx (KE AGUILAR) No Pertinent Family Hx ADDIITIONAL SURGICAL/PROCEDURAL HISTORY: -LEFT KNEE ARTHROSCOPY 07/2015 AND 12/2015 -RIGHT KNEE ARTHROSCOPY - X 4 -HYSTERECTOMY 2003 -APPENDECTOMY 2003 -LEFT SALPINGO-OOPHORECTOMY AND CHOLECYSTECTOMY 07/28/2016 -GASTRIC SLEEVE 11/17/2016 -TUMMY TUCK -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 0oz. 74.528441xn; 39.00 BMI Method:Stated General Appearance: WD/WN, moderate distress Eyes: Bilateral Eye Normal Inspection, Bilateral Eye PERRL, Bilateral Eye EOMI HEENT: PERRL/EOMI, normal ENT inspection, TMs normal, pharynx normal; No pharyngeal erythema, No tonsillar exudate Neck: non-tender, full range of motion, supple, normal inspection Respiratory: chest non-tender, lungs clear, normal breath sounds Cardiovascular: normal peripheral pulses, regular rate, rhythm Gastrointestinal: normal bowel sounds, non tender, soft Extremities: normal range of motion, non-tender, normal inspection, no pedal edema, no calf tenderness, normal capillary refill 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: no motor/sensory deficits, alert, normal mood/affect, oriented x 3 Skin: normal color, warm/dry (KE AGUILAR) Focused Exam Lactate Level 02/08/21 19:02: Lactic Acid Level 0.79 (TIFFANY FRANCIS DO) Lactic Acid Level Laboratory Tests Test 02/08/21 19:02 Lactic Acid Level 0.79 MMOL/L (0.50-2.00) (TITOTIFFANY Usman DO) Progress/Results/Core Measures Suspected Sepsis SIRS Temperature: Pulse: 99 Respiratory Rate: 20 Laboratory Tests 02/08/21 19:02: White Blood Count 9.5 Blood Pressure 105 /71 Mean: 82 02/08/21 19:02: Lactic Acid Level 0.79 Laboratory Tests 02/08/21 19:02: Creatinine 0.77, INR Comment 1.1, Platelet Count 241, Total Bilirubin 0.6 (JEFFKE) Results/Orders Lab Results Laboratory Tests Test 02/08/21 19:02 02/08/21 19:50 02/08/21 21:37 Range/Units White Blood Count 9.5 4.3-11.0 10^3/uL Red Blood Count 4.63 3.80-5.11 10^6/uL Hemoglobin 12.7 11.5-16.0 g/dL Hematocrit 39 35-52 % Mean Corpuscular Volume 84 80-99 fL Mean Corpuscular Hemoglobin 27 25-34 pg Mean Corpuscular Hemoglobin Concent 33 32-36 g/dL Red Cell Distribution Width 13.7 10.0-14.5 % Platelet Count 241 130-400 10^3/uL Mean Platelet Volume 9.0 9.0-12.2 fL Immature Granulocyte % (Auto) 0 % Neutrophils (%) (Auto) 81 H 42-75 % Lymphocytes (%) (Auto) 12 12-44 % Monocytes (%) (Auto) 6 0-12 % Eosinophils (%) (Auto) 1 0-10 % Basophils (%) (Auto) 0 0-10 % Neutrophils # (Auto) 7.7 1.8-7.8 10^3/uL Lymphocytes # (Auto) 1.1 1.0-4.0 10^3/uL Monocytes # (Auto) 0.5 0.0-1.0 10^3/uL Eosinophils # (Auto) 0.1 0.0-0.3 10^3/uL Basophils # (Auto) 0.0 0.0-0.1 10^3/uL Immature Granulocyte # (Auto) 0.0 0.0-0.1 10^3/uL Erythrocyte Sedimentation Rate 54 H 0-20 MM/HR Prothrombin Time 14.1 12.2-14.7 SEC INR Comment 1.1 0.8-1.4 Activated Partial Thromboplast Time 32 24-35 SEC Sodium Level 137 135-145 MMOL/L Potassium Level 3.7 3.6-5.0 MMOL/L Chloride Level 105 98-107 MMOL/L Carbon Dioxide Level 21 21-32 MMOL/L Anion Gap 11 5-14 MMOL/L Blood Urea Nitrogen 9 7-18 MG/DL Creatinine 0.77 0.60-1.30 MG/DL Estimat Glomerular Filtration Rate 80 BUN/Creatinine Ratio 12 Glucose Level 95 70-105 MG/DL Lactic Acid Level 0.79 0.50-2.00 MMOL/L Calcium Level 8.8 8.5-10.1 MG/DL Corrected Calcium 8.9 8.5-10.1 MG/DL Magnesium Level 2.0 1.6-2.4 MG/DL Total Bilirubin 0.6 0.1-1.0 MG/DL Aspartate Amino Transf (AST/SGOT) 21 5-34 U/L Alanine Aminotransferase (ALT/SGPT) 14 0-55 U/L Alkaline Phosphatase 71 40-136 U/L Total Creatine Kinase 110 29-168 U/L Creatine Kinase MB 0.5 <6.6 NG/ML Myoglobin 32.7 10.0-92.0 NG/ML Troponin I < 0.028 < 0.028 <0.028 NG/ML C-Reactive Protein High Sensitivity 2.83 H 0.00-0.50 MG/DL B-Type Natriuretic Peptide 32.1 <100.0 PG/ML Total Protein 7.9 6.4-8.2 GM/DL Albumin 3.9 3.2-4.5 GM/DL Amylase Level 74 25-125 U/L Lipase 42 8-78 U/L Procalcitonin 0.03 <0.10 NG/ML Serum Test, Qualitative NEGATIVE NEGATIVE Influenza Type A (RT-PCR) Not Detected Not Detecte Influenza Type B (RT-PCR) Not Detected Not Detecte SARS-CoV-2 RNA (RT-PCR) Not Detected Not Detecte Urine Color YELLOW Urine Clarity CLEAR Urine pH 7.5 5-9 Urine Specific Wirt 1.020 1.016-1.022 Urine Protein NEGATIVE NEGATIVE Urine Glucose (UA) NEGATIVE NEGATIVE Urine Ketones NEGATIVE NEGATIVE Urine Nitrite NEGATIVE NEGATIVE Urine Bilirubin NEGATIVE NEGATIVE Urine Urobilinogen 0.2 < = 1.0 MG/DL Urine Leukocyte Esterase TRACE H NEGATIVE Urine RBC (Auto) NEGATIVE NEGATIVE Urine RBC NONE /HPF Urine WBC 2-5 /HPF Urine Squamous Epithelial Cells 0-2 /HPF Urine Renal Epithelial Cells RARE /HPF Urine Crystals NONE /LPF Urine Bacteria TRACE /HPF Urine Casts NONE /LPF Urine Mucus NEGATIVE /LPF Urine Culture Indicated CULTURE PENDING Urine Opiates Screen NEGATIVE NEGATIVE Urine Oxycodone Screen NEGATIVE NEGATIVE Urine Methadone Screen NEGATIVE NEGATIVE Urine Propoxyphene Screen NEGATIVE NEGATIVE Urine Barbiturates Screen NEGATIVE NEGATIVE Ur Tricyclic Antidepressants Screen NEGATIVE NEGATIVE Urine Phencyclidine Screen NEGATIVE NEGATIVE Urine Amphetamines Screen NEGATIVE NEGATIVE Urine Methamphetamines Screen NEGATIVE NEGATIVE Urine Benzodiazepines Screen NEGATIVE NEGATIVE Urine Cocaine Screen NEGATIVE NEGATIVE Urine Cannabinoids Screen NEGATIVE NEGATIVE (TIFFANY FRANCIS DO) Micro Results Microbiology 02/08/21 Blood Culture - Preliminary, Resulted No growth 02/08/21 Blood Culture - Preliminary, Resulted No growth (TIFFANY FRANCIS DO) My Orders Orders - TIFFANY FRANCIS DO Ed Iv/Invasive Line Start (02/08/21 18:54) Ekg Tracing (02/08/21 18:54) O2 (02/08/21 18:54) Monitor-Rhythm Ecg Trace Only (02/08/21 18:54) Amylase (02/08/21 18:54) BNP (02/08/21 18:54) Cbc With Automated Diff (02/08/21 18:54) Comprehensive Metabolic Panel (02/08/21 18:54) Creatine Kinase (02/08/21 18:54) Creatine Kinase Mb (02/08/21 18:54) Hs C Reactive Protein (02/08/21 18:54) Drug Screen Stat (Urine) (02/08/21 18:54) Hcg,Qualitative Serum (02/08/21 18:54) Lactic Acid Analyzer (02/08/21 18:54) Lipase (02/08/21 18:54) Magnesium (02/08/21 18:54) Procalcitonin (Pct) (02/08/21 18:54) Protime With Inr (02/08/21 18:54) Partial Thromboplastin Time (02/08/21 18:54) Ua Culture If Indicated (02/08/21 18:54) Blood Culture (02/08/21 18:54) Influenza A And B By Pcr (02/08/21 18:54) Erythrocyte Sedimentation Rate (02/08/21 18:54) Myoglobin Serum (02/08/21 18:54) Troponin I (02/08/21 18:54) Chest 1 View, Ap/Pa Only (02/08/21 18:54) Covid 19 Inhouse Test (02/08/21 18:54) Urine Culture (02/08/21 18:54) Ed Iv/Invasive Line Start (02/08/21 18:54) Vital Signs Adult Sepsis Patie Q15M (02/08/21 18:54) O2 (02/08/21 18:54) Remove Rings In Anticipation O (02/08/21 18:54) Ed Iv/Invasive Line Start (02/08/21 18:54) Lactated Ringers (Lr 1000 Ml Iv Solution (02/08/21 19:00) (TIFFANY FRANCIS DO) Vital Signs/I&O 02/08/21 02/08/21 02/08/21 02/08/21 18:50 19:51 20:52 22:41 Temp 38.6 38.8 37.8 Pulse 99 85 Resp 20 18 B/P (MAP) 105/71 (82) 92/61 Pulse Ox 97 95 O2 Delivery Room Air Room Air (TIFFANY FRANCIS DO) Vital Signs/I&O Capillary Refill : Less Than 3 Seconds (KE AGUILRA) Blood Pressure Mean: 82 Progress Note : Time: 18:50 Progress Note Patient seen and evaluated, will obtain labs, chest x-ray, Covid and influenza swabs, EKG, LR 1 L per IV. Tylenol 650 mg orally for fever. 1944 pt denies any new complaints. 2039 temp 100. Taking water, no vomiting. 2129 All tests negative, will recheck Troponin at 3 hours. If neg, will d/c to home. 2229 Temp 99.2; patient reports to be feeling better. Troponin is negative. Discharge instructions and return precautions reviewed. (KE AGUILAR) ECG Initial ECG Impression Date: Feb 08, 2021 Initial ECG Impression Time: 18:58 Initial ECG Rate: 97 Initial ECG Rhythm: Normal Sinus Initial ECG Intervals: Normal Initial ECG Intervals PA 148, QRSD 108, QT 320, QTc 407. [place] P 52, QRS 62, T 21. Initial ECG Impression: Normal Initial ECG Comparisson: Unchanged (KE AGUILAR) Diagnostic Imaging Diagonstic Imaging: Xray Plain Films/CT/US/NM/MRI: chest Comments NAME: FLAKO JEREZ REC#: [id number] PT STATUS: REG ER : 1975 PHYSICIAN: TIFFANY FRANCIS DO ADMIT DATE: 02/08/21/ER Draft Date of Exam:02/08/21 CHEST 1 VIEW, AP/PA ONLY EXAM: CHEST 1 VIEW, AP/PA ONLY INDICATION: Chest pain. Cough. COMPARISON: 10/29/2020. FINDINGS: Normal heart size and pulmonary vascularity. No dense consolidation, pleural effusion or pneumothorax. No acute osseous findings. IMPRESSION: No acute cardiopulmonary findings. Dictated on workstation # [id number] Dict: 02/08/212056 Trans: 02/08/212099 [facility] [id number] Interpreted by: KATHARINE SIERRA MD Electronically signed by: Reviewed: Reviewed by Me (KE AGUILAR) Departure Impression Primary Impression: Cough Additional Impressions: Fever Qualified Codes: R50.9 - Fever, unspecified Upper respiratory infection Qualified Codes: J06.9 - Acute upper respiratory infection, unspecified Disposition: HOME, SELF-CARE Condition: Improved Departure-Patient Inst. Decision time for Depature: 22:10 (KE AGUILRA) Referrals: [facility] (PCP/Family) Primary Care Physician Patient Instructions: Viral Upper Respiratory Infection, Adult (DC) Add. Discharge Instructions: Increase fluids, 16 ounces every 2 hours while awake. Take DayQuil and NyQuil for congestion and symptoms. Alternate between Tylenol 650 mg and ibuprofen 600 mg every 4 hours for fever or pain. Follow-up with your primary care provider in 24 to 48 hours of your symptoms are not improving or worsen. Return to the emergency department for new, urgent healthcare needs. All discharge instructions reviewed with patient and/or family. Voiced understanding. ATTENDING PHYSICIAN NOTE: I WAS PHYSICALLY PRESENT ER PHYSICIAN WHEN THIS PATIENT WAS IN ER, BUT I WAS NOT INVOLVED IN ANY DECISION MAKING OR ANY CARE OF THIS PATIENT. (TIFFANY FRANCIS DO) KE AGUILAR Feb 08, 2021 20:43 TIFFANY FRANCIS DO Feb 10, 2021 06:39
--- NOTE | 2021-02-08 21:00 | Diagnostic Imaging Report ---
EXAM: CHEST 1 VIEW, AP/PA ONLY INDICATION: Chest pain. Cough. COMPARISON: 10/29/2020. FINDINGS: Normal heart size and pulmonary vascularity. No dense consolidation, pleural effusion or pneumothorax. No acute osseous findings. IMPRESSION: No acute cardiopulmonary findings. Dictated by: Dictated on workstation # [id number]
[2021-02-08 22:41] VITALS: BP 92/61
== END 2021-02-08 22:28 | disposition home or self-care (01) ==
LOC: EDUNIT# 18:48 → ER 18:50
DX: J06.9 Acute upper respiratory infection, unspecified (principal); F41.9 Anxiety disorder, unspecified; E11.9 Type 2 diabetes mellitus without complications; E66.9 Obesity, unspecified; Z68.39 Body mass index [BMI] 39.0-39.9, adult; Z20.822 Contact with and (suspected) exposure to COVID-19
CPT/HCPCS: 36415; 71045; 80053; 80306; 81000; 82150; 82550; 82553; 83605; 83690; 83735; 83874; 83880; 84145; 84484; 84703; 85025; 85610; 85652; 85730; 86141; 87040; 87088; 87636; 93005; 93041

== ENCOUNTER 2021-02-22 18:03 | Emergency (ER) | payer SELFPAY ==
[~2021-02-22] VITALS: Ht 157.5 cm; Wt 95.0 kg
[~2021-02-22 18:03] MED LIST changes: +CYCL10TA25 PO; -CYCL10TA9 PO
[2021-02-22] MEDS ORDERED: ONDANSETRON 4 MG/2 ML (SDV) Z0FRAN IVP ONE (19:00)
[2021-02-22] MEDS ORDERED: LACTATED RINGERS 1,000 ML IV ONE (19:00)
[2021-02-22] MEDS ORDERED: LOPERAMIDE 2 MG (IMODIUM) TABLET PO ONE (19:00)
[2021-02-22] MEDS ORDERED: ASPIRIN 81 MG CHEW (CHILDREN'S ASA) PO ONE (19:00)
[2021-02-22] MEDS ORDERED: FAMOTIDINE 20MG/2ML IV (PEPCID) IV STA (19:04)
[2021-02-22 19:16] LABS: BASOPHILS # (AUTO) 0.1 10^3/uL (0.0-0.1); BASOPHILS % (AUTO) 0 % (0-10); EOSINOPHILS # (AUTO) 0.2 10^3/uL (0.0-0.3); EOSINOPHILS % (AUTO) 2 % (0-10); HEMATOCRIT 44 % (35-52); HEMOGLOBIN 14.3 g/dL (11.5-16.0); LYMPHOCYTES # (AUTO) 1.2 10^3/uL (1.0-4.0); LYMPHOCYTES % (AUTO) 11 % (12-44); MEAN CORPUSCULAR HEMOGLOBIN 27 pg (25-34); MEAN CORPUSCULAR HGB CONC 33 g/dL (32-36); MEAN CORPUSCULAR VOLUME 84 fL (80-99); MEAN PLATELET VOLUME 9.1 fL (9.0-12.2); MONOCYTES # (AUTO) 0.5 10^3/uL (0.0-1.0); MONOCYTES % (AUTO) 4 % (0-12); NEUTROPHILS # (AUTO) 9.3 10^3/uL (1.8-7.8); NEUTROPHILS % (AUTO) 83 % (42-75); PLATELET COUNT 326 10^3/uL (130-400); WHITE BLOOD COUNT 11.2 10^3/uL (4.3-11.0)
[2021-02-22 19:22] LABS: PROTHROMBIN TIME PATIENT 13.9 SEC (12.2-14.7)
[2021-02-22 19:36] LABS: ALBUMIN 4.2 GM/DL (3.2-4.5); BILIRUBIN,TOTAL 0.6 MG/DL (0.1-1.0); CALCIUM 9.4 MG/DL (8.5-10.1); CREATININE SERUM 0.77 MG/DL (0.60-1.30); MAGNESIUM 2.1 MG/DL (1.6-2.4); POTASSIUM 3.9 MMOL/L (3.6-5.0); TOTAL PROTEIN 8.9 GM/DL (6.4-8.2)
--- NOTE | 2021-02-22 20:14 | Diagnostic Imaging Report ---
Indication: Chest pain Portable chest 7:59 PM Heart size and pulmonary vascularity are normal. Lungs are clear. There are no effusions or pneumothoraces. IMPRESSION: Negative chest Dictated by: Dictated on workstation # [id number]
[2021-02-22] MEDS ORDERED: ONDA4TAB11 SL (20:24)
--- NOTE | 2021-02-22 20:25 | ED Chest Pain ---
General Chief Complaint: COVID19 Suspect/Confirmed Stated Complaint: COVID EXPOSURE, WEAKNESS,VOMITING,DIARRHEA,DIZZY Nursing Triage Note: PT AMB TO RM 6 W REPORTS OF COVID EXPOSURE. PT C/O WARNER, SORE THROAT, N/V/D, RUNNY NOSE, FATIGUE, CHILLS, COUGH, AND SHARP CP WHEN COUGHING AND MOVING. PT A&OX4. Source: patient Exam Limitations: no limitations History of Present Illness Date Seen by Provider: Feb 23, 2021 Time Seen by Provider: 18:40 Initial Comments This 45-year-old woman presents to the emergency room with complaints of flulike symptoms including cough, headache, sore throat, vomiting, diarrhea, runny nose, fever, chills, and chest pain. The chest pain has been ongoing for over a mo nth. She states it is worse with activity. She has been to the ER a few times in the past for cardiac work-up. She has never had a stress test or heart cath to evaluate her chest pain. She is working toward this with her primary care provider. She reports a Covid exposure at work. Allergies and Home Medications Allergies Coded Allergies: No Known Drug Allergies (Unverified , 06/01/20) Patient Home Medication List Home Medication List Reviewed: Yes Azithromycin (Zithromax) 500 Mg Tablet, 500 MG PO DAILY Prescribed by: TIFFANY FRANCIS on 10/29/201909 Benzonatate (Tessalon Perles) 100 Mg Capsule, 200 MG PO TID Prescribed by: TIFFANY FRANCIS on 06/01/20 0436 Benzonatate (Tessalon Perles) 100 Mg Capsule, 100 MG PO TID Prescribed by: TIFFANY FRANCIS on 10/29/201909 Cefdinir (Cefdinir) 300 Mg Capsule, 300 MG PO BID Prescribed by: TIFFANY FRNACIS on 10/29/201909 Cephalexin (Keflex) 500 Mg Capsule, 500 MG PO QID Prescribed by: NINO SUMNER on 02/21/19 8650 Cyclobenzaprine HCl (Cyclobenzaprine HCl) 10 Mg Tablet, 10 MG PO TID PRN for SPASMS Prescribed by: NINO SUMNER on 06/25/19 1016 Cyclobenzaprine HCl (Cyclobenzaprine HCl) 10 Mg Tablet, 10 MG PO Q8H PRN for SPASMS Prescribed by: ROLANDO PEREZ on 10/06/202116 Dexamethasone (Decadron) 6 Mg Tablet, 6 MG PO DAILY Prescribed by: TIFFANY FRANCIS on 10/29/201909 Guaifenesin/Dextromethorphan (Mucinex Dm ER 1,200-60 mg Tab) 1 Each Tbmp.12hr, 1 EACH PO BID Prescribed by: TIFFANY FRANCIS on 06/01/20 043 Hydroxyzine HCl (Hydroxyzine HCl) 25 Mg Tablet, 25 MG PO Q4H Prescribed by: JAELYN MORALES on 02/23/19 1508 Methylprednisolone (Medrol) 4 Mg Tab.ds.pk, 4 MG PO UD Prescribed by: TIFFANY FRANCIS on 06/01/20 043 Naproxen (Naprosyn) 500 Mg Tablet, 500 MG PO BID Prescribed by: JEREMY MAC on 09/29/19 1429 Ondansetron (Ondansetron Odt) 4 Mg Tab.rapdis, 4 MG SL Q4H PRN for NAUSEA/VOMITING Prescribed by: NINO SUMNER on 07/07/20 161 Ondansetron (Ondansetron Odt) 4 Mg Tab.rapdis, 4 MG SL Q4H PRN for NAUSEA/VOMITING Prescribed by: NINO SUMNER on 02/22/212023 Oseltamivir Phosphate (Tamiflu) 75 Mg Cap, 75 MG PO BID Prescribed by: TIFFANY FRANCIS on 06/01/20 043 Phentermine HCl (Phentermine HCl) 37.5 Mg Tablet, (Reported) Entered as Reported by: JAMES MORALES on 02/21/19 2313 Prednisone (Prednisone) 20 Mg Tab, 20 MG PO BID Prescribed by: ROLANDO PEREZ on 10/06/202120 Promethazine HCl/Codeine (Prometh-Codein 6.25-10 mg/5 ml) 5 Ml Syrup, 5 ML PO Q4H PRN for COUGH Prescribed by: NINO SUMNER on 07/07/20 1619 Review of Systems Review of Systems Constitutional: see HPI EENTM: See HPI Respiratory: See HPI Cardiovascular: See HPI Gastrointestinal: See HPI Genitourinary: No Symptoms Reported Musculoskeletal: no symptoms reported Skin: no symptoms reported Psychiatric/Neurological: See HPI Endocrine: No Symptoms Reported Hematologic/Lymphatic: No Symptoms Reported Past Prrktws-Rlpvqe-Crwebf Hx Patient Social History Tobacco Use?: No Use of E-Cig and/or Vaping dev: No Substance use?: No Alcohol Use?: No Immunizations Up To Date Tetanus Booster (TDap): Unknown PED Vaccines UTD: Yes Influenza Vaccine Up-to-Date: No; Not Current First/Initial COVID19 Vaccinat: APR 2020 Second COVID19 Vaccination Marco: MAY 2020 COVID19 Vaccine Data Processing Operator: LUIS ALBERTO Seasonal Allergies Seasonal Allergies: No Past Medical History Surgery/Hospitalization HX: C-SECTIONS X 4, LEFT KNEE ARTHROSCOPY X 2, RIGHT KNEE SCOPE X 1, GASTRIC SLEEVE--11/17/2016 "TUMMY TUCK" LEFT WRIST SURGERY RIGHT ELBOW SURGERY APPENDECTOMY--2003 CHOLECYSTECTOMY AND LEFT SALPINGO-OOPHORECTOMY 07/28/2016 HYSTERECTOMY---2003 BILATERAL TUBAL LIGATION 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 Sexually Transmitted Disease: No HIV/AIDS: No Genitourinary: Yes Kidney Infection, Bladder Infection, Kidney Stones, UTI-Chronic Gastrointestinal: Yes (S/P APPY, ROSALIO, GASTRIC SLEEVE, TUMMY TUCK) Chronic Diarrhea, Gall Bladder Disease, Irritable Bowel Musculoskeletal: Yes (BILAT KNEE SCOPES; L WRIST; R ELBOW) Arthritis Endocrine: Yes (OBESITY) Diabetes, Non-Insulin dep HEENT: No Loss of Vision: Bilateral Hearing Impairment: Denies Cancer: No Psychosocial: Yes Anxiety Integumentary: No (MULTIPLE TATTOOS) Blood Disorders: No Adverse Reaction/Blood Tranf: No Family Medical History No Pertinent Family Hx ADDIITIONAL SURGICAL/PROCEDURAL HISTORY: -LEFT KNEE ARTHROSCOPY 07/2015 AND 12/2015 -RIGHT KNEE ARTHROSCOPY - X 4 -HYSTERECTOMY 2003 -APPENDECTOMY 2003 -LEFT SALPINGO-OOPHORECTOMY AND CHOLECYSTECTOMY 07/28/2016 -GASTRIC SLEEVE 11/17/2016 -TUMMY TUCK -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 0oz. 74.688783ya; 38.00 BMI Method:Stated General Appearance: WD/WN, Mild Distress HEENT: PERRL/EOMI, TMs Normal, Normal ENT Inspection, Pharynx Normal Neck: Normal Inspection, Supple Respiratory: Chest Non Tender, Lungs Clear, Normal Breath Sounds, No Accessory Muscle Use, No Respiratory Distress Cardiovascular: No Edema, No Murmur, Tachycardia Gastrointestinal: Normal Bowel Sounds, Non Tender, Soft Extremity: Normal Inspection, No Pedal Edema 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: Alert, Oriented x3, No Motor/Sensory Deficits, Normal Mood/Affect, offal trimmer II-XII Norm as Tested Skin: Normal Color, Warm/Dry Progress/Results/Core Measures Results/Orders Lab Results Laboratory Tests Test 02/22/21 18:56 02/22/21 18:58 Range/Units White Blood Count 11.2 H 4.3-11.0 10^3/uL Red Blood Count 5.24 H 3.80-5.11 10^6/uL Hemoglobin 14.3 11.5-16.0 g/dL Hematocrit 44 35-52 % Mean Corpuscular Volume 84 80-99 fL Mean Corpuscular Hemoglobin 27 25-34 pg Mean Corpuscular Hemoglobin Concent 33 32-36 g/dL Red Cell Distribution Width 13.7 10.0-14.5 % Platelet Count 326 130-400 10^3/uL Mean Platelet Volume 9.1 9.0-12.2 fL Immature Granulocyte % (Auto) 0 % Neutrophils (%) (Auto) 83 H 42-75 % Lymphocytes (%) (Auto) 11 L 12-44 % Monocytes (%) (Auto) 4 0-12 % Eosinophils (%) (Auto) 2 0-10 % Basophils (%) (Auto) 0 0-10 % Neutrophils # (Auto) 9.3 H 1.8-7.8 10^3/uL Lymphocytes # (Auto) 1.2 1.0-4.0 10^3/uL Monocytes # (Auto) 0.5 0.0-1.0 10^3/uL Eosinophils # (Auto) 0.2 0.0-0.3 10^3/uL Basophils # (Auto) 0.1 0.0-0.1 10^3/uL Immature Granulocyte # (Auto) 0.0 0.0-0.1 10^3/uL Prothrombin Time 13.9 12.2-14.7 SEC INR Comment 1.0 0.8-1.4 Activated Partial Thromboplast Time 32 24-35 SEC D-Dimer 0.01 0.00-0.49 UG/ML Sodium Level 138 135-145 MMOL/L Potassium Level 3.9 3.6-5.0 MMOL/L Chloride Level 106 98-107 MMOL/L Carbon Dioxide Level 20 L 21-32 MMOL/L Anion Gap 12 5-14 MMOL/L Blood Urea Nitrogen 12 7-18 MG/DL Creatinine 0.77 0.60-1.30 MG/DL Estimat Glomerular Filtration Rate 80 BUN/Creatinine Ratio 16 Glucose Level 95 70-105 MG/DL Calcium Level 9.4 8.5-10.1 MG/DL Corrected Calcium 9.2 8.5-10.1 MG/DL Magnesium Level 2.1 1.6-2.4 MG/DL Total Bilirubin 0.6 0.1-1.0 MG/DL Aspartate Amino Transf (AST/SGOT) 16 5-34 U/L Alanine Aminotransferase (ALT/SGPT) 15 0-55 U/L Alkaline Phosphatase 70 40-136 U/L Myoglobin 26.8 10.0-92.0 NG/ML Troponin I < 0.028 <0.028 NG/ML Total Protein 8.9 H 6.4-8.2 GM/DL Albumin 4.2 3.2-4.5 GM/DL Influenza Type A (RT-PCR) Not Detected Not Detecte Influenza Type B (RT-PCR) Not Detected Not Detecte SARS-CoV-2 RNA (RT-PCR) Not Detected Not Detecte My Orders Orders - NINO WINKLER MD Influenza A And B By Pcr (02/22/21 18:55) Covid 19 Inhouse Test (02/22/21 18:55) Cbc With Automated Diff (02/22/21 18:55) Magnesium (02/22/21 18:55) Chest 1 View, Ap/Pa Only (02/22/21 18:55) Ekg Tracing (02/22/21 18:55) Comprehensive Metabolic Panel (02/22/21 18:55) Myoglobin Serum (02/22/21 18:55) Protime With Inr (02/22/21 18:55) Partial Thromboplastin Time (02/22/21 18:55) O2 (02/22/21 18:55) Monitor-Rhythm Ecg Trace Only (02/22/21 18:55) Ed Iv/Invasive Line Start (02/22/21 18:55) Fibrin Degradation Products (02/22/21 18:55) Troponin I (02/22/21 18:55) Aspirin Chewable Tablet (Baby Aspirin Ch (02/22/21 19:00) Ed Iv/Invasive Line Start (02/22/21 18:55) Lactated Ringers (Lr 1000 Ml Iv Solution (02/22/21 19:00) Ondansetron Injection (Zofran Injectio (02/22/21 19:00) Loperamide Tablet (Imodium Tablet) (02/22/21 19:00) Famotidine Injection (Pepcid Injection) (02/22/21 19:04) Medications Given in ED Vital Signs/I&O 02/22/21 02/22/21 18:36 21:00 Temp 38.3 Pulse 86 37 Resp 20 20 B/P (MAP) 122/89 (100) 103/61 Pulse Ox 98 98 O2 Delivery Room Air Room Air Blood Pressure Mean: 100 Progress Progress Note : Progress Note Patient was given Zofran and Imodium for her symptoms. Work-up was unremarkable. She has been evaluated for this chest pain multiple times now and it has been ongoing for a month. She was strongly encouraged to follow-up with a agency operator. See discharge instructions below. Initial ECG Impression Date: Feb 23, 2021 Initial ECG Impression Time: 19:53 Initial ECG Rate: 85 Initial ECG Rhythm: Normal Sinus Initial ECG Intervals: Normal Initial ECG Impression: Normal Comment Normal sinus rhythm with no ST elevation or depression. No abnormal intervals or axis deviation. Diagnostic Imaging Diagonstic Imaging: Xray Plain Films/CT/US/NM/MRI: chest Comments Chest x-ray reviewed by me and report reviewed. See report below: NAME: FLAKO JEREZ [facility] REC#: [id number] PT STATUS: REG ER : 1975 PHYSICIAN: NINO WINKLER MD ADMIT DATE: 02/22/21/ER Signed Date of Exam:02/22/21 CHEST 1 VIEW, AP/PA ONLY Indication: Chest pain Portable chest 7:59 PM Heart size and pulmonary vascularity are normal. Lungs are clear. There are no effusions or pneumothoraces. IMPRESSION: Negative chest Dictated by: Dictated on workstation # [id number] Dict: 02/22/212011 Trans: 02/22/212012 TCB [id number] Interpreted by: YUMIKO CANTRELL MD Electronically signed by: YUMIKO CANTRELL MD 02/22/212012 Departure Impression Primary Impression: Atypical chest pain Additional Impressions: Flu-like symptoms Nausea, vomiting and diarrhea Disposition: 01 HOME, SELF-CARE Condition: Improved Departure-Patient Inst. Decision time for Depature: 20:22 Referrals: [facility] (PCP/Family) Primary Care Physician JUAN M VILCHIS MD [facility] MARLI BELLO MD, DAVID L JR, MD Patient Instructions: Chest Pain (DC), Nausea and Vomiting, Adult Add. Discharge Instructions: Start with a noncarbonated clear liquid diet for the next 24 hours. If you are doing well with that, then gradually advance your diet with small quantities of bland food as tolerated. Avoid fatty or greasy foods or dairy products until your diarrhea has resolved for at least 2 days. You may use the Zofran (ondansetron) as prescribed for nausea and vomiting. Dissolve 1 tablet under the tongue every 4 hours as needed. It may also be beneficial to take an antacid such as Pepcid (famotidine) twice daily. Please follow-up with your primary care provider soon as possible regarding your chest pain. You may also call the agency operator directly. A list of cardiologists is listed below. Call with questions or concerns. Return to the ER if you have worsening symptoms. Take aspirin 81 mg daily until otherwise instructed. All discharge instructions reviewed with patient and/or family. Voiced understanding. Scripts Ondansetron (Ondansetron Odt) 4 Mg Tab.rapdis 4 MG SL Q4H PRN for NAUSEA/VOMITING, #10 TAB Prov: NINO WINKLER MD 02/22/21 Work/School Note: Work Release Form Date Seen in the Emergency Department: Feb 22, 2021 Return to Work: Feb 24, 2021 Restrictions: Return-No Fever (24hrs), Return-No Vomiting(24hrs) Other Restrictions Listed Below: May return to work if symptoms are improved on or after February 24. Copy Copies To 1: ROLY POPE JOSHUA T MD Feb 22, 2021 20:25
[2021-02-22 21:00] VITALS: BP 103/61
== END 2021-02-22 21:00 | disposition home or self-care (01) ==
LOC: EDUNIT# 18:03 → ER 18:04
DX: R07.89 Other chest pain (principal); J11.1 Influenza due to unidentified influenza virus with other respiratory manifestations; R11.2 Nausea with vomiting, unspecified; R19.7 Diarrhea, unspecified; R00.0 Tachycardia, unspecified; F41.9 Anxiety disorder, unspecified; E66.9 Obesity, unspecified; E11.9 Type 2 diabetes mellitus without complications; Z68.38 Body mass index [BMI] 38.0-38.9, adult; Z20.822 Contact with and (suspected) exposure to COVID-19; Z79.899 Other long term (current) drug therapy
CPT/HCPCS: 36415; 71045; 80053; 83735; 83874; 84484; 85025; 85379; 85610; 85730; 87636; 93005; 93041

== ENCOUNTER → 2021-03-11 | Outpatient (CLI) | payer OTHER ==
[~2021-03-11] MED LIST changes: +CATHETER FLUSH 10 ML SYR IV PRN
[2021-03-11 12:00] VITALS: BP 102/67
--- NOTE | 2021-03-11 16:14 | Cardiology Stress Test Report ---
Stress Test Report Date of Procedure/Referring: Date of Procedure: Mar 11, 2021 PCP Marli Contreras MD Admitting Physician [facility] Indications: HTN Baseline Heart Rate: 59 Baseline Blood Pressure: Blood Pressure Systolic: 102 Blood Pressure Diastolic: 67 Vital Signs Date Time Temp Pulse Resp B/P (MAP) Pulse Ox O2 Delivery O2 Flow Rate FiO2 03/11/21 12:00 59 102/67 (79) Baseline Vital Signs Vital Signs Date Time Temp Pulse Resp B/P (MAP) Pulse Ox O2 Delivery O2 Flow Rate FiO2 03/11/21 12:00 59 102/67 (79) Baseline EKG: Baseline EKG: NSR Summary: After explaining the procedure and details to the patient, she signed the consent and was brought to the stress nuclear laboratory. Patient exercised on standard Jc protocol, EKG, heart rate and blood pressure were monitored continuously, resting and stress doses of radio tracer were injected, imaging was acquired and reviewed in the short axis, horizontal long axis and vertical long axis views Patient was able to exercise for a total of 5.30 minutes on Jc protocol, METs 7.1 Maximum heart rate 152 Maximum blood pressure 130/74 Stress EKG, Minimal nondiagnostic changes Recovery EKG, Return to baseline TID: 1.01 SSS: 3 SDS: 3 EF: 53 Conclusion: 1. Good exercise tolerance for a total of 5 minutes 30 seconds on standard Jc protocol, 7.1 METS achieving 87% of maximal expected heart rate 2. Appropriate heart rate response to exercise with frequent PVCs noted at peak stress level and occasional ventricular couplets. Return to baseline during recovery. 3. Breast attenuation with mild reversible ischemia involving the mid to apical anterior wall 4. Normal left ventricular size, EF 53% MARLI CONTRERAS MD Mar 11, 2021 16:14
== END ==
LOC: CARD 10:00
PROVIDERS: ATTEND Internal Medicine Cardiovascular Disease
DX: I10 Essential (primary) hypertension (principal)
CPT/HCPCS: 78452; 93017; 93306; A9502

== ENCOUNTER 2021-03-26 17:33 | Emergency (ER) | payer OTHER ==
[~2021-03-26] VITALS: Ht 157.5 cm; Wt 94.8 kg
[~2021-03-26 17:33] MED LIST changes: -CATHETER FLUSH 10 ML SYR IV PRN
--- NOTE | 2021-03-26 17:56 | ED Chest Pain ---
General Chief Complaint: COVID19 Suspect/Confirmed Stated Complaint: WARNER, SOB, COUGH,CONGESTION,CP Nursing Triage Note: PT AMB TO RM 8 WITH COMPLAINT OF COUGH, CP, SOA, HEADACHE, N/V/D. History of Present Illness Date Seen by Provider: Mar 26, 2021 Time Seen by Provider: 17:55 Initial Comments Patient is a 45-year-old female who presents ED with chest tightness, shortness of breath, cough, dizziness and headache. Patient states she has been having intermittent chest tightness for some time. She states she recently saw Dr. Contreras and had a stress test performed on 11 March. She has been having intermittent shortness of breath typically with ambulation. She states she feels tired. She states she was laying down started having chest discomfort and shortness of breath this evening. She has associated nausea without vomiting. She reports intermittent diarrhea without any blood or mucus. She reports greenish sputum production with her cough. She reports she feels feverish. She started to have a headache 1 hour ago with a history of similar type headaches. Described as sharp. Denies any visual changes, facial droop, unilateral muscle weakness, change in urination. She states she had a negative outpatient Covid test at work. Allergies and Home Medications Allergies Coded Allergies: No Known Drug Allergies (Unverified , 06/01/20) Patient Home Medication List Home Medication List Reviewed: Yes Azithromycin (Zithromax) 500 Mg Tablet, 500 MG PO DAILY Prescribed by: TIFFANY FRANCIS on 10/29/201909 Benzonatate (Tessalon Perles) 100 Mg Capsule, 200 MG PO TID Prescribed by: TIFFANY FRANCIS on 06/01/20 0436 Benzonatate (Tessalon Perles) 100 Mg Capsule, 100 MG PO TID Prescribed by: TIFFANY FRANCIS on 10/29/201909 Cefdinir (Cefdinir) 300 Mg Capsule, 300 MG PO BID Prescribed by: TIFFANY FRANCIS on 10/29/201909 Cephalexin (Keflex) 500 Mg Capsule, 500 MG PO QID Prescribed by: NINO SUMNER on 02/21/19 0794 Cyclobenzaprine HCl (Cyclobenzaprine HCl) 10 Mg Tablet, 10 MG PO TID PRN for SPA SMS Prescribed by: NINO SUMNER on 06/25/19 1016 Cyclobenzaprine HCl (Cyclobenzaprine HCl) 10 Mg Tablet, 10 MG PO Q8H PRN for SPASMS Prescribed by: ROLANDO PEREZ on 10/06/202116 Dexamethasone (Decadron) 6 Mg Tablet, 6 MG PO DAILY Prescribed by: TIFFANY FRANCIS on 10/29/20 191 Guaifenesin/Dextromethorphan (Mucinex Dm ER 1,200-60 mg Tab) 1 Each Tbmp.12hr, 1 EACH PO BID Prescribed by: TIFFANY FRANCIS on 06/01/20 043 Hydroxyzine HCl (Hydroxyzine HCl) 25 Mg Tablet, 25 MG PO Q4H Prescribed by: JAELYN MORALES on 02/23/19 1508 Methylprednisolone (Medrol) 4 Mg Tab.ds.pk, 4 MG PO UD Prescribed by: TIFFANY FRANCIS on 06/01/20 043 Naproxen (Naprosyn) 500 Mg Tablet, 500 MG PO BID Prescribed by: JEREMY MAC on 09/29/19 1429 Ondansetron (Ondansetron Odt) 4 Mg Tab.rapdis, 4 MG SL Q4H PRN for N AUSEA/VOMITING Prescribed by: NINO SUMNER on 07/07/20 1616 Ondansetron (Ondansetron Odt) 4 Mg Tab.rapdis, 4 MG SL Q4H PRN for NAUSEA/VOMITING Prescribed by: NINO SUMNER on 02/22/212023 Oseltamivir Phosphate (Tamiflu) 75 Mg Cap, 75 MG PO BID Prescribed by: TIFFANY FRANCIS on 06/01/20 043 Phentermine HCl (Phentermine HCl) 37.5 Mg Tablet, (Reported) Entered as Reported by: JAMES MORALES on 02/21/19 2313 Prednisone (Prednisone) 20 Mg Tab, 20 MG PO BID Prescribed by: ROLANDO PEREZ on 10/06/202120 Promethazine HCl/Codeine (Prometh-Codein 6.25-10 mg/5 ml) 5 Ml Syrup, 5 ML PO Q4H PRN for COUGH Prescribed by: NINO SUMNER on 07/07/20 1619 Review of Systems Review of Systems Constitutional: chills, dizziness, malaise EENTM: No Blurred Vision, No Double Vision, No Throat Pain, No Throat Swelling Respiratory: Cough, Shortness of Air, SOA With Exertion Cardiovascular: Chest Pain; Denies Edema, Denies Irregular Heart Rate Gastrointestinal: Denies Abdominal Pain, Denies Constipated; Nausea; Denies Vomiting Musculoskeletal: No back pain, No joint pain, No joint swelling, No muscle pain Skin: No change in color, No change in hair/nails Psychiatric/Neurological: Denies Headache, Denies Numbness All Other Systems Reviewed Negative Unless Noted: Yes Past Hodwipt-Qmbfzp-Zwjzvf Hx Patient Social History Tobacco Use?: No Use of E-Cig and/or Vaping dev: No Substance use?: No Alcohol Use?: No Pt feels they are or have been: No Immunizations Up To Date Tetanus Booster (TDap): Unknown PED Vaccines UTD: Yes Influenza Vaccine Up-to-Date: Yes; Up-to-Date First/Initial COVID19 Vaccinat: JUNE 2020 Second COVID19 Vaccination Marco: JULY 2020 COVID19 Vaccine Medical Pathologist: AdteractivekM Seasonal Allergies Seasonal Allergies: No Past Medical History Surgery/Hospitalization HX: C-SECTIONS X 4, LEFT KNEE ARTHROSCOPY X 2, RIGHT KNEE SCOPE X 1, GASTRIC SLEEVE--11/17/2016 "TUMMY TUCK" LEFT WRIST SURGERY RIGHT ELBOW SURGERY APPENDECTOMY--2003 CHOLECYSTECTOMY AND LEFT SALPINGO-OOPHORECTOMY 07/28/2016 HYSTERECTOMY---2003 BILATERAL TUBAL LIGATION 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 Sexually Transmitted Disease: No HIV/AIDS: No Genitourinary: Yes Kidney Infection, Bladder Infection, Kidney Stones, UTI-Chronic Gastrointestinal: Yes (S/P APPY, ROSALIO, GASTRIC SLEEVE, TUMMY TUCK) Chronic Diarrhea, Gall Bladder Disease, Irritable Bowel Musculoskeletal: Yes (BILAT KNEE SCOPES; L WRIST; R ELBOW) Arthritis Endocrine: Yes (OBESITY) Diabetes, Non-Insulin dep HEENT: No Loss of Vision: Bilateral Hearing Impairment: Denies Cancer: No Psychosocial: Yes Anxiety Integumentary: No (MULTIPLE TATTOOS) Blood Disorders: No Adverse Reaction/Blood Tranf: No Family Medical History No Pertinent Family Hx ADDIITIONAL SURGICAL/PROCEDURAL HISTORY: -LEFT KNEE ARTHROSCOPY 07/2015 AND 12/2015 -RIGHT KNEE ARTHROSCOPY - X 4 -HYSTERECTOMY 2003 -APPENDECTOMY 2003 -LEFT SALPINGO-OOPHORECTOMY AND CHOLECYSTECTOMY 07/28/2016 -GASTRIC SLEEVE 11/17/2016 -TUMMY TUCK -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 0oz. 74.988668ri; 38.00 BMI Method:Stated General Appearance: No Apparent Distress, WD/WN HEENT: PERRL/EOMI, TMs Normal, Normal ENT Inspection, Pharynx Normal Neck: Full Range of Motion, Normal Inspection, Non Tender, Supple Respiratory: Chest Non Tender, Lungs Clear, Normal Breath Sounds, No Accessory Muscle Use, No Respiratory Distress Cardiovascular: Regular Rate, Rhythm, No Edema, No Gallop, No JVD, No Murmur Gastrointestinal: Normal Bowel Sounds, No Organomegaly, No Pulsatile Mass, Non Tender Extremity: Normal Capillary Refill, Normal Inspection, Normal Range of Motion, Non Tender, No Calf Tenderness Skin: Normal Color, Warm/Dry Progress/Results/Core Measures Results/Orders Lab Results Laboratory Tests Test 03/26/21 11:54 03/26/21 17:54 Range/Units Troponin I < 0.028 <0.028 NG/ML White Blood Count 6.2 4.3-11.0 10^3/uL Red Blood Count 4.65 3.80-5.11 10^6/uL Hemoglobin 12.5 11.5-16.0 g/dL Hematocrit 40 35-52 % Mean Corpuscular Volume 85 80-99 fL Mean Corpuscular Hemoglobin 27 25-34 pg Mean Corpuscular Hemoglobin Concent 32 32-36 g/dL Red Cell Distribution Width 14.1 10.0-14.5 % Platelet Count 297 130-400 10^3/uL Mean Platelet Volume 9.1 9.0-12.2 fL Immature Granulocyte % (Auto) 0 % Neutrophils (%) (Auto) 50 42-75 % Lymphocytes (%) (Auto) 36 12-44 % Monocytes (%) (Auto) 7 0-12 % Eosinophils (%) (Auto) 6 0-10 % Basophils (%) (Auto) 1 0-10 % Neutrophils # (Auto) 3.1 1.8-7.8 10^3/uL Lymphocytes # (Auto) 2.2 1.0-4.0 10^3/uL Monocytes # (Auto) 0.4 0.0-1.0 10^3/uL Eosinophils # (Auto) 0.3 0.0-0.3 10^3/uL Basophils # (Auto) 0.1 0.0-0.1 10^3/uL Immature Granulocyte # (Auto) 0.0 0.0-0.1 10^3/uL Prothrombin Time 13.7 12.2-14.7 SEC INR Comment 1.0 0.8-1.4 Activated Partial Thromboplast Time 32 24-35 SEC Sodium Level 137 135-145 MMOL/L Potassium Level 3.9 3.6-5.0 MMOL/L Chloride Level 107 98-107 MMOL/L Carbon Dioxide Level 22 21-32 MMOL/L Anion Gap 8 5-14 MMOL/L Blood Urea Nitrogen 10 7-18 MG/DL Creatinine 0.75 0.60-1.30 MG/DL Estimat Glomerular Filtration Rate 83 BUN/Creatinine Ratio 13 Glucose Level 95 70-105 MG/DL Calcium Level 9.1 8.5-10.1 MG/DL Corrected Calcium 9.2 8.5-10.1 MG/DL Magnesium Level 2.2 1.6-2.4 MG/DL Total Bilirubin 0.4 0.1-1.0 MG/DL Aspartate Amino Transf (AST/SGOT) 18 5-34 U/L Alanine Aminotransferase (ALT/SGPT) 12 0-55 U/L Alkaline Phosphatase 63 40-136 U/L Myoglobin 28.2 10.0-92.0 NG/ML B-Type Natriuretic Peptide 14.7 <100.0 PG/ML Total Protein 8.0 6.4-8.2 GM/DL Albumin 3.9 3.2-4.5 GM/DL Lipase 50 8-78 U/L Influenza Type A (RT-PCR) Not Detected Not Detecte Influenza Type B (RT-PCR) Not Detected Not Detecte SARS-CoV-2 RNA (RT-PCR) Not Detected Not Detecte My Orders Orders - [facility] LOCO Covid 19 Inhouse Test (03/26/21 17:38) Influenza A And B By Pcr (03/26/21 17:38) Cbc With Automated Diff (03/26/21 17:53) Comprehensive Metabolic Panel (03/26/21 17:53) Lipase (03/26/21 17:53) Magnesium (03/26/21 17:53) Partial Thromboplastin Time (03/26/21 17:53) Protime With Inr (03/26/21 17:53) Myoglobin Serum (03/26/21 17:53) Ua Culture If Indicated (03/26/21 17:53) Hcg,Qualitative Urine (03/26/21 17:53) Chest 1 View, Ap/Pa Only (03/26/21 17:53) Bnp Nash (03/26/21 17:53) Aspirin Tablet (Aspirin Tablet) (03/26/21 18:00) Ekg Tracing (03/26/21 17:53) Troponin I Nash (03/26/21 18:37) Acetaminophen Tablet (Tylenol Tablet) (03/26/21 19:15) Acetaminophen Tablet (Tylenol Tablet) (03/26/21 19:22) Medications Given in ED Current Medications Medications Dose Ordered Sig/Rachelle Route Start Time Stop Time Status Last Admin Dose Admin Acetaminophen 1,000 mg ONCE ONCE PO 03/26/21 19:15 03/26/21 19:32 DC 03/26/21 19:25 1,000 MG Aspirin 325 mg ONCE ONCE PO 03/26/21 18:00 03/26/21 18:01 DC 03/26/21 18:07 325 MG Vital Signs/I&O 03/26/21 03/26/21 17:48 19:30 Pulse 64 86 Resp 17 16 B/P (MAP) 122/86 (98) 120/78 Pulse Ox 98 98 O2 Delivery Room Air Room Air Blood Pressure Mean: 98 Departure Communication (Admissions) Patient presents ED with increased tiredness, fatigue. She has been having intermittent chest pain or shortness of breath but this has been ongoing. She saw Dr. Contreras and had a stress test performed on March 11. She had breast attenuation with mild ischemic changes noted to the mid to apical wall. Patient has no current chest pain. Her EKG normal sinus rhythm with T wave inversions in the anterior leads. Similar EKG on March 07. Chest x-ray negative for pneumonia, pneumothorax. Covid and influenza negative. She states she does work at night. She has not been sleeping. She states she feels tired secondary to the decreased sleep. She also has associated wet cough with few episodes of diarrhea and nausea. Patient lab work was essentially unremarkable. Normal cardiac enzymes. No recent travels or surgeries. She is not hypoxic or tachycardic suggesting PE. No known history of cancer. Electrolytes unremarkable. She was given aspirin and Tylenol here for the associated headache. Patient symptoms appear to be more viral in nature. Due to the minimal nondiagnostic stress test, no EKG changes patient can follow-up outpatient with cardilogy. I do feel like patient symptoms are more viral at this time. If any worsening symptoms strongly recommend return back to ED for further evaluation. Patient requesting work note for tonight. Return precautions were discussed with patient. Patient has no urinary symptoms. She did not provide a urine sample. Patient afebrile Impression Primary Impression: Viral syndrome Additional Impression: Chest pain Disposition: HOME, SELF-CARE Condition: Stable Departure-Patient Inst. Decision time for Depature: 19:13 Referrals: [facility] [place] ([place]/Family) Primary Care Physician Patient Instructions: Viral Syndrome (DC) Work/School Note: Family Work Note, Work Release Form Date Seen in the Emergency Department: Mar 26, 2021 Return to Work: Mar 29, 2021 [facility] Mar 26, 2021 17:56
[2021-03-26] MEDS ORDERED: ASPIRIN 325 MG (5 GR) TABLET PO ONE (18:00)
[2021-03-26 18:06] LABS: BASOPHILS # (AUTO) 0.1 10^3/uL (0.0-0.1); BASOPHILS % (AUTO) 1 % (0-10); EOSINOPHILS # (AUTO) 0.3 10^3/uL (0.0-0.3); EOSINOPHILS % (AUTO) 6 % (0-10); HEMATOCRIT 40 % (35-52); HEMOGLOBIN 12.5 g/dL (11.5-16.0); LYMPHOCYTES # (AUTO) 2.2 10^3/uL (1.0-4.0); LYMPHOCYTES % (AUTO) 36 % (12-44); MEAN CORPUSCULAR HEMOGLOBIN 27 pg (25-34); MEAN CORPUSCULAR HGB CONC 32 g/dL (32-36); MEAN CORPUSCULAR VOLUME 85 fL (80-99); MEAN PLATELET VOLUME 9.1 fL (9.0-12.2); MONOCYTES # (AUTO) 0.4 10^3/uL (0.0-1.0); MONOCYTES % (AUTO) 7 % (0-12); NEUTROPHILS # (AUTO) 3.1 10^3/uL (1.8-7.8); NEUTROPHILS % (AUTO) 50 % (42-75); PLATELET COUNT 297 10^3/uL (130-400); WHITE BLOOD COUNT 6.2 10^3/uL (4.3-11.0)
[2021-03-26 18:17] LABS: ALBUMIN 3.9 GM/DL (3.2-4.5)
[2021-03-26 18:18] LABS: POTASSIUM 3.9 MMOL/L (3.6-5.0)
[2021-03-26 18:19] LABS: CALCIUM 9.1 MG/DL (8.5-10.1)
[2021-03-26 18:22] LABS: BILIRUBIN,TOTAL 0.4 MG/DL (0.1-1.0)
[2021-03-26 18:23] LABS: CREATININE SERUM 0.75 MG/DL (0.60-1.30)
[2021-03-26 18:26] LABS: MAGNESIUM 2.2 MG/DL (1.6-2.4); PROTHROMBIN TIME PATIENT 13.7 SEC (12.2-14.7)
--- NOTE | 2021-03-26 18:50 | Diagnostic Imaging Report ---
INDICATION: Chest pain. EXAMINATION: Frontal chest was obtained at 6:41 p.m. COMPARISON: 02/22/2021. FINDINGS: Heart and mediastinal silhouette are normal in appearance. The lungs are clear. There is no pneumothorax or pleural fluid. IMPRESSION: Negative chest. Dictated by: Dictated on workstation # [id number]
[2021-03-26] MEDS ORDERED: ACETAMINOPHEN 500 MG TAB (TYLENOL) PO ONE (19:15)
[2021-03-26] MEDS ORDERED: ACETAMINOPHEN 500 MG TAB (TYLENOL) ONE (19:22)
[2021-03-26 19:30] VITALS: BP 120/78
== END 2021-03-26 19:30 | disposition home or self-care (01) ==
LOC: EDUNIT# 17:33 → ER 17:39
DX: B34.9 Viral infection, unspecified (principal); E11.9 Type 2 diabetes mellitus without complications; E66.9 Obesity, unspecified; Z20.822 Contact with and (suspected) exposure to COVID-19
CPT/HCPCS: 36415; 71045; 80053; 83690; 83735; 83874; 83880; 84484; 85025; 85610; 85730; 87636; 93005

== ENCOUNTER 2021-04-14 16:26 | Emergency (ER) | payer OTHER ==
[~2021-04-14] VITALS: Ht 157 cm; Wt 96.0 kg
--- NOTE | 2021-04-14 16:53 | ED Cough/URI ---
General Chief Complaint: COVID19 Suspect/Confirmed Stated Complaint: COVID POSITIVE - DIZZY / SOA / PASSED OUT Source: patient Exam Limitations: no limitations History of Present Illness Date Seen by Provider: Apr 14, 2021 Time Seen by Provider: 16:31 Initial Comments 45-year-old female with no significant past medical history coming in due to lightheadedness, general malaise, and feeling short of breath intermittently. Multiple family members in her house just got over COVID. She took a test a couple days ago and it was negative, and she took a rapid test today and it was positive. She mostly just wants confirmation. She was walking earlier and felt lightheaded and leaned against the wall, never did pass out and did not hit her head. Denying any chest pain, palpitations, abdominal pain, nausea, vomiting, diarrhea, fever, chills, focal weakness or numbness, vision changes, or any other concerns. Is not taking any medications and has not had anything today. She has had a COVID-vaccine x2 and she had COVID last year. Of note, the patient later said that she has been taking an Internet diet pill that she is not sure where it came from or what is in it. She stopped taking this 3 days ago. Allergies and Home Medications Allergies Coded Allergies: No Known Drug Allergies (Unverified , 06/01/20) Patient Home Medication List Home Medication List Reviewed: Yes Azithromycin (Zithromax) 500 Mg Tablet, 500 MG PO DAILY Prescribed by: TIFFANY FRANCIS on 10/29/201909 Benzonatate (Tessalon Perles) 100 Mg Capsule, 200 MG PO TID Prescribed by: TIFFANY FRANCIS on 06/01/20 0436 Benzonatate (Tessalon Perles) 100 Mg Capsule, 100 MG PO TID Prescribed by: TIFFANY FRANCIS on 10/29/201909 Cefdinir (Cefdinir) 300 Mg Capsule, 300 MG PO BID Prescribed by: TIFFANY FRANCIS on 10/29/201909 Cephalexin (Keflex) 500 Mg Capsule, 500 MG PO QID Prescribed by: NINO SUMNER on 02/21/19 7430 Cyclobenzaprine HCl (Cyclobenzaprine HCl) 10 Mg Tablet, 10 MG PO TID PRN for SPASMS Prescribed by: NINO SUMNER on 06/25/19 1016 Cyclobenzaprine HCl (Cyclobenzaprine HCl) 10 Mg Tablet, 10 MG PO Q8H PRN for SPASMS Prescribed by: ROLANDO PEREZ on 10/06/202116 Dexamethasone (Decadron) 6 Mg Tablet, 6 MG PO DAILY Prescribed by: TIFFANY FRANCIS on 10/29/20 191 Guaifenesin/Dextromethorphan (Mucinex Dm ER 1,200-60 mg Tab) 1 Each Tbmp.12hr, 1 EACH PO BID Prescribed by: TIFFANY FRANCIS on 06/01/20 043 Hydroxyzine HCl (Hydroxyzine HCl) 25 Mg Tablet, 25 MG PO Q4H Prescribed by: JAELYN MORALES on 02/23/19 1508 Methylprednisolone (Medrol) 4 Mg Tab.ds.pk, 4 MG PO UD Prescribed by: TIFFANY FRANCIS on 06/01/20 043 Naproxen (Naprosyn) 500 Mg Tablet, 500 MG PO BID Prescribed by: JEREMY MAC on 09/29/19 1429 Ondansetron (Ondansetron Odt) 4 Mg Tab.rapdis, 4 MG SL Q4H PRN for NAUSEA/VOMITING Prescribed by: NINO SUMNER on 07/07/20 1616 Ondansetron (Ondansetron Odt) 4 Mg Tab.rapdis, 4 MG SL Q4H PRN for NAUSEA/VOMITING Prescribed by: NINO SUMNER on 02/22/212023 Oseltamivir Phosphate (Tamiflu) 75 Mg Cap, 75 MG PO BID Prescribed by: TIFFANY FRANCIS on 06/01/20 0436 Phentermine HCl (Phentermine HCl) 37.5 Mg Tablet, (Reported) Entered as Reported by: JAMES MORALES on 02/21/19 2313 Prednisone (Prednisone) 20 Mg Tab, 20 MG PO BID Prescribed by: ROLANDO PEREZ on 10/06/202120 Promethazine HCl/Codeine (Prometh-Codein 6.25-10 mg/5 ml) 5 Ml Syrup, 5 ML PO Q4H PRN for COUGH Prescribed by: NINO SUMNER on 07/07/20 1619 Review of Systems Review of Systems Constitutional: No chills, No fever EENTM: No blurred vision Respiratory: No cough; short of breath Cardiovascular: other (Lightheaded) Gastrointestinal: No abdominal pain, No diarrhea, No vomiting Genitourinary: no symptoms reported Musculoskeletal: no symptoms reported Skin: no symptoms reported Psychiatric/Neurological: No Symptoms Reported Hematologic/Lymphatic: No Symptoms Reported Immunological/Allergic: no symptoms reported All Other Systems Reviewed Negative Unless Noted: Yes Past Aymrlhq-Gudxgm-Hkqzza Hx Patient Social History Substance use?: No Immunizations Up To Date Tetanus Booster (TDap): Unknown PED Vaccines UTD: Yes First/Initial COVID19 Vaccinat: JUNE 2020 Second COVID19 Vaccination Mraco: JULY 2020 Seasonal Allergies Seasonal Allergies: No Past Medical History Surgery/Hospitalization HX: C-SECTIONS X 4, LEFT KNEE ARTHROSCOPY X 2, RIGHT KNEE SCOPE X 1, GASTRIC SLEEVE--11/17/2016 "TUMMY TUCK" LEFT WRIST SURGERY RIGHT ELBOW SURGERY APPENDECTOMY--2003 CHOLECYSTECTOMY AND LEFT SALPINGO-OOPHORECTOMY 07/28/2016 HYSTERECTOMY---2003 BILATERAL TUBAL LIGATION 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 Sexually Transmitted Disease: No HIV/AIDS: No Genitourinary: Yes Kidney Infection, Bladder Infection, Kidney Stones, UTI-Chronic Gastrointestinal: Yes (S/P APPY, ROSALIO, GASTRIC SLEEVE, TUMMY TUCK) Chronic Diarrhea, Gall Bladder Disease, Irritable Bowel Musculoskeletal: Yes (BILAT KNEE SCOPES; L WRIST; R ELBOW) Arthritis Endocrine: Yes (OBESITY) Diabetes, Non-Insulin dep HEENT: No Loss of Vision: Bilateral Hearing Impairment: Denies Cancer: No Psychosocial: Yes Anxiety Integumentary: No (MULTIPLE TATTOOS) Blood Disorders: No Adverse Reaction/Blood Tranf: No Family Medical History No Pertinent Family Hx ADDIITIONAL SURGICAL/PROCEDURAL HISTORY: -LEFT KNEE ARTHROSCOPY 07/2015 AND 12/2015 -RIGHT KNEE ARTHROSCOPY - X 4 -HYSTERECTOMY 2004 -APPENDECTOMY 2004 -LEFT SALPINGO-OOPHORECTOMY AND CHOLECYSTECTOMY 07/28/2016 -GASTRIC SLEEVE 11/17/2016 -TUMMY TUCK -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 0oz. 74.281621gq; 38.00 BMI Method:Stated General Appearance: WD/WN, no apparent distress Eyes: Bilateral Eye Normal Inspection HEENT: PERRL/EOMI, normal ENT inspection, pharynx normal Neck: non-tender, full range of motion, supple, normal inspection Respiratory: chest non-tender, lungs clear, normal breath sounds, no respiratory distress, no accessory muscle use Cardiovascular: regular rate, rhythm, no edema, no murmur Gastrointestinal: normal bowel sounds, non tender, soft; No distended, No guarding, No rebound Extremities: normal range of motion, non-tender, normal inspection, no pedal edema, no calf tenderness 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: no motor/sensory deficits, alert, normal mood/affect, oriented x 3 Skin: normal color, warm/dry Lymphatic: no adenopathy Progress/Results/Core Measures Suspected Sepsis SIRS Temperature: Pulse: Respiratory Rate: Blood Pressure / Mean: Results/Orders My Orders Orders - PAM MORENO MD Chest 1 View, Ap/Pa Only (04/14/21 16:41) Coronavirus Sars-Cov-2 So 2018 (04/14/21 16:47) Vital Signs/I&O Capillary Refill : Progress Note : Progress Note 45-year-old female with above history coming in with mostly general malaise and lightheadedness. ABCs were intact and vitals were stable on presentation. Physical exam reassuring including nonfocal neuro exam. She never did fully pass out and has not had any falls or trauma. On the monitor she appears normal with a rate in the 70s. She is low risk for pulmonary embolism and is PERC negative. She showed me a picture of the at home COVID test and it does look positive to me. She is insistent on giving a confirmatory test here so we will do a PCR send out. Chest x-ray ordered and on my interpretation without any obvious pneumonia, pneumothorax, normal cardiac silhouette, no obvious other abnormality. The patient is tolerating p.o. well. I believe she is stable for discharge with outpatient follow-up. She was sent home with strict return precautions Departure Impression Primary Impression: COVID-19 Disposition: 01 HOME, SELF-CARE Condition: Stable Departure-Patient Inst. Decision time for Depature: 16:55 Referrals: [facility] (PCP/Family) Primary Care Physician Patient Instructions: COVID-19 (DC) Add. Discharge Instructions: You were seen in the emergency department because you generally are not feeling well and you are feeling lightheaded and short of breath. Your chest x-ray is clear and you do not have pneumonia. I looked at your test on your phone and you do appear to have a positive. CDC recommendations are to isolate for 5 days and then wear a mask for another 5 days after that if you are going to be around people. We did send a confirmatory test which will come back in the next day or 2. Take Tylenol or ibuprofen as needed for pain, fever, or body aches. Be sure to drink plenty of fluids as this will help you feeling lightheaded. I think some of the lightheadedness and change of your symptoms could be the diet medicine you are taking. I do recommend stopping that. Work/School Note: Work Release Form Date Seen in the Emergency Department: Apr 14, 2021 Return to Work: Apr 21, 2021 Restrictions: Return-No Fever (24hrs) PAM MORENO MD Apr 14, 2021 16:53
[2021-04-14 17:15] VITALS: BP 120/89
--- NOTE | 2021-04-14 17:19 | Diagnostic Imaging Report ---
CLINICAL INDICATION: Patient is Covid positive with shortness of breath. EXAM: Portable chest x-ray upright view. COMPARISON: Chest x-ray dated 03/26/2021. FINDINGS: Lungs/pleura: Lungs are clear. There is no pneumothorax. There is no pleural effusion. Mediastinum: Unremarkable. Pulmonary vasculature: Unremarkable. Heart: Unremarkable. Bones/extrathoracic soft tissue: Unremarkable. IMPRESSION: There is no radiographic evidence of acute cardiopulmonary process. Dictated by: Dictated on workstation # [id number]
== END 2021-04-14 17:15 | disposition home or self-care (01) ==
LOC: EDUNIT# 16:26 → ER 16:28
DX: U07.1 COVID-19 (principal); E11.9 Type 2 diabetes mellitus without complications; F41.9 Anxiety disorder, unspecified; E66.9 Obesity, unspecified; Z68.38 Body mass index [BMI] 38.0-38.9, adult; Z79.899 Other long term (current) drug therapy
CPT/HCPCS: 71045; 87635

== ENCOUNTER 2021-05-12 10:00 | Day surgery (SDC) | payer OTHER ==
[2021-05-12] VITALS (10 sets, daily range): BP systolic 95–108; BP diastolic 64–71
[~2021-05-12] VITALS: Ht 157 cm; Wt 96.0 kg
[2021-05-12 08:32] LABS: HEMATOCRIT 39 % (35-52); HEMOGLOBIN 12.6 g/dL (11.5-16.0); MEAN CORPUSCULAR HEMOGLOBIN 27 pg (25-34); MEAN CORPUSCULAR HGB CONC 32 g/dL (32-36); MEAN CORPUSCULAR VOLUME 84 fL (80-99); MEAN PLATELET VOLUME 8.9 fL (9.0-12.2); PLATELET COUNT 307 10^3/uL (130-400); WHITE BLOOD COUNT 6.9 10^3/uL (4.3-11.0)
[2021-05-12 08:33] LABS: BILIRUBIN,URINE NEGATIVE (NEGATIVE); CLARITY,URINE CLEAR; COLOR,URINE YELLOW; GLUCOSE, URINE (UA) NEGATIVE (NEGATIVE); KETONES,URINE NEGATIVE (NEGATIVE); LEUKOCYTE ESTERASE ,URINE NEGATIVE (NEGATIVE); NITRITE,URINE NEGATIVE (NEGATIVE); PH,URINE 6.5 (5-9); PROTEIN,URINE NEGATIVE (NEGATIVE)
[2021-05-12 08:44] LABS: PROTHROMBIN TIME PATIENT 13.8 SEC (12.2-14.7)
[2021-05-12 08:52] LABS: BACTERIA,URINE NEGATIVE /HPF; BILIRUBIN,TOTAL 0.4 MG/DL (0.1-1.0); CALCIUM 9.1 MG/DL (8.5-10.1); CREATININE SERUM 0.77 MG/DL (0.60-1.30); POTASSIUM 3.8 MMOL/L (3.6-5.0); TOTAL PROTEIN 8.1 GM/DL (6.4-8.2); WBC,URINE RARE /HPF
--- NOTE | 2021-05-12 08:59 | Diagnostic Imaging Report ---
INDICATION: Coronary artery disease Frontal chest obtained at 8:15 a.m. and compared to 04/14/2021. Heart and mediastinal silhouette are normal in appearance. The lungs are clear. There is no pneumothorax or pleural fluid. IMPRESSION: Negative chest. Dictated by: Dictated on workstation # [id number]
--- NOTE | 2021-05-12 09:11 | Conscious Sedation/ASA ---
Conscious Sedation Pre-Proced Time 09:11 ASA Score 3 For ASA 3 and 4: Consider anesthesia and medical clearance. Also, for patients with a history of failed moderate sedation consider anesthesia. Airway Lungs Heart ASA score ASA 1: a normal healthy patient ASA 2: a patient with a mild systemic disease (mid diabetes, controlled hypertension, obesity x ASA 3: a patient with a severe systemic disease that limits activity (angina, COPD, prior Myocardial infarction) ASA 4: a patient with an incapacitating disease that is a constant threat to life (CHF, renal failure) ASA 5: a moribund patient not expected to survive 24 hrs. (ruptured aneurysm) ASA 6: a declared brain- patient whose organs are being harvested. For emergent operations, add the letter E after the classification Mallampati Classification Grade 3 Sedation Plan Analgesia, Amnesia, Plan communicated to team members, Discussed options with patient/fam, Discussed risks with patient/fam The patient is an appropriate candidate to undergo the planned procedure, sedation, and anesthesia. The patient immediately re-assessed prior to indication. MARLI BELLO MD May 12, 2021 09:11
--- NOTE | 2021-05-12 09:58 | Cardiac Cath Report ---
Cardiac Cath Report Physician (s)/Cashier Wrapper (s) Physician MARLI BELLO MD Pre-Procedure Diagnosis Pre-Procedure Diagnosis: Chest pain Post-Procedure Note Procedure Start Date: May 12, 2021 Name of Procedure: Left heart catheterization Findings/Procedure Note PROCEDURE NOTE: 45-year-old lady with history of hypertension, hyperlipidemia, had a borderline stress test, continue to have recurrent chest pain, seen in the emergency room with multiple visits, decision was made to proceed with left heart catheterization possible PTCA. After explaining the procedure to the patient, all pros and cons were explained, all questions were answered. The patient signed the consent and then she was placed on the cardiac catheterization laboratory. Groin was prepped SL fashion local anesthesia was used. Sheath placed in the right radial artery, Iona catheter was advanced to the left ventricular cavity, pressure was measured, pullback LV to aorta was done, engaged the right and left coronary system, angiogram was done. At the end of the procedure the sheath was removed. Vascular band was used FINDINGS: Hemodynamics LV 89/6, end-diastolic pressure of 6 Aorta 101/68 mean of 81 ANATOMY: Left Main is free of obstructive disease Left Anterior Descending has mild disease nonobstructive disease Left Circumflex is free of obstructive disease Right Coronary Artery is small artery with mild disease nonobstructive disease LV Gram was not done, pressure was measured CONCLUSION: 1. Mild coronary artery disease nonobstructive disease 2. Normal left ventricular end-diastolic pressure DISCUSSION AND RECOMMENDATION: Chest pain is probably noncardiac, medical therapy is recommended. Anesthesia Type: Conscious Sedation Estimated blood loss (mL): 10 ml Contrast Amount: 35 ml Total Radiation Dose: 318 mGy Post-Procedure Diagnosis Post-operative diagnosis: Chest pain Coronary artery disease Hypertension Hyperlipidemia MARLI BELLO MD May 12, 2021 09:58
[~2021-05-12 10:00] MED LIST changes: +HEParin (CATH LAB) 2,000 ML IV ONE; +HEParin 1000 UNIT/ML (10ML VIAL) FOR BOLUS ONE; +LIDOCAINE 1% INJ 20 ML VIAL ONE; +MIDAZOLAM 5 MG/5 ML (VERSED) VIAL ONE; +NITRO DRIP 25000 MCG/D5W 250 ML IV ONE; +NS IV 1000 ML 1,000 ML IV SCH; +NS IV 1000 ML 1,000 ML ONE; +VERAPAMIL 5 MG/2 ML (CALAN) VIAL IV ONE; +fentaNYL INJ 100 MCG/2 ML AMP ONE
--- NOTE | 2021-05-12 10:01 | Discharge Inst-Post CATH ---
Discharge Inst-CATH/EP Problems Reviewed?: Yes Post Cardiac Cath/EP D/C Inst Follow Up/Plan Appointment with Dr. Contreras's office in 2 to 4 weeks <b>CARDIAC CATH/EP PROCEDURE DISCHARGE INSTRUCTIONS</b> ACTIVITY * Go Home directly and rest. * Limit activity of the leg (or wrist if it was used) for 7 days including aer obics, swimming, jogging, bicycling, etc. * Restrict stair-climbing for 7 days if possible, if not, climb up with your non-cath leg, then bring together on the same step. * Avoid lifting, pushing, pulling or excessive movement of the affected extremi ty for 7 days. * Customary sexual activity may be resumed after 2 days-use caution not to use a position that strains or causes pain to the affected extremity. * No driving for 24 hours. * NO SMOKING. * Avoid straining for bowel movements for 7 days. * Gentle walking on level ground is allowed. * Returning to work will depend on the type of procedure and the results. Your doctor will discuss this with you. CALL YOUR DOCTOR FOR ANY OF THE FOLLOWING: *If bleeding from the puncture site occurs- Apply gentle pressure to site with clean cloth and call your doctor or EMS. * If a knot or lump forms under the skin, increases in size, or causes pain. * If bruising appears to be worsening or moving further down your leg instead of disappearing. * Temperature above 101 F. CARE OF YOUR GROIN INCISION; * Bruising or purple discoloration of the skin near the puncture site is common. * You may shower only, no bathtub bathing for 5 days. Be careful to avoid slipping as your leg may feel stiff. * If a closure device was used on your femoral artery, please see the attached guide regarding care of the device and your leg. * Leave dressing on FOR 24 hours. CARE OF YOUR WRIST INCISION; * Bruising or purple discoloration of the skin near the puncture site is common. * You may shower. * DO NOT submerge wrist. * Leave dressing on FOR 24 hours. MARLI CONTRERAS MD May 12, 2021 10:01
== END 2021-05-12 12:50 | disposition home or self-care (01) ==
LOC: CATH 10:00
PROVIDERS: ATTEND Internal Medicine Cardiovascular Disease
DX: I25.10 Atherosclerotic heart disease of native coronary artery without angina pectoris (principal); I11.9 Hypertensive heart disease without heart failure; E78.5 Hyperlipidemia, unspecified
CPT/HCPCS: 36430; 71045; 80053; 80061; 81000; 85027; 85610; 85730; 87081; 93458; C1894; 36415

== ENCOUNTER 2021-08-02 12:53 | Emergency (ER) | payer SELFPAY ==
[~2021-08-02] VITALS: Ht 157 cm; Wt 96.0 kg
[~2021-08-02 12:53] MED LIST changes: -HEParin (CATH LAB) 2,000 ML IV ONE; -HEParin 1000 UNIT/ML (10ML VIAL) FOR BOLUS ONE; -LIDOCAINE 1% INJ 20 ML VIAL ONE; -MIDAZOLAM 5 MG/5 ML (VERSED) VIAL ONE; -NITRO DRIP 25000 MCG/D5W 250 ML IV ONE; -NS IV 1000 ML 1,000 ML IV SCH; -NS IV 1000 ML 1,000 ML ONE; +OMEP20TA56 PO; -OMEP20TA7 PO; -VERAPAMIL 5 MG/2 ML (CALAN) VIAL IV ONE; -fentaNYL INJ 100 MCG/2 ML AMP ONE
--- NOTE | 2021-08-02 13:13 | ED Lower Extremity ---
General Chief Complaint: Lower Extremity Stated Complaint: R KNEE PAIN Nursing Triage Note: PT STATES SHE WAS [place] [employer] AND [place]IPPED, FALLING DOWN AND HURTING HER RT KNEE. DENIES HITTING HEAD, NO NECK PAIN, NO LOC, HIT LT HIP BUT ONLY COMPLAINING OF RT KNEE PAIN. Source: patient Exam Limitations: no limitations History of Present Illness Date Seen by Provider: August 02, 2021 Time Seen by Provider: 13:11 Initial Comments Slipped and fell at [facility], right lower leg angled laterally in regards to upper leg. Now c/o right knee pain. No other injury Onset: just prior to arrival Severity: moderate Pain/Injury Location: right knee Method of Injury: fell Modifying Factors: Worse With Movement Allergies and Home Medications Allergies Coded Allergies: No Known Drug Allergies (Unverified , 06/01/20) Patient Home Medication List Home Medication List Reviewed: Yes Review of Systems Constitutional: see HPI EENTM: see HPI Respiratory: no symptoms reported Cardiovascular: no symptoms reported Genitourinary: no symptoms reported Musculoskeletal: see HPI Skin: no symptoms reported Psychiatric/Neurological: No Symptoms Reported Past Bqxolvs-Wyunxe-Phnipo Hx Patient Social History Tobacco Use?: No Substance use?: No Alcohol Use?: No Immunizations Up To Date Tetanus Booster (TDap): Unknown PED Vaccines UTD: Yes First/Initial COVID19 Vaccinat: 2020 Second COVID19 Vaccination Marco: 2020 Third COVID19 Vaccination Date: 07/06/21 COVID19 Vaccine Platform Man: MODERNA Seasonal Allergies Seasonal Allergies: No Past Medical History Surgery/Hospitalization HX: C-SECTIONS X 4, LEFT KNEE ARTHROSCOPY X 2, RIGHT KNEE SCOPE X 1, GASTRIC SLEEVE--11/17/2016 "TUMMY TUCK" LEFT WRIST SURGERY RIGHT ELBOW SURGERY APPENDECTOMY--2003 CHOLECYSTECTOMY AND LEFT SALPINGO-OOPHORECTOMY 07/28/2016 HYSTERECTOMY---2003 BILATERAL TUBAL LIGATION 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 Sexually Transmitted Disease: No HIV/AIDS: No Genitourinary: Yes Kidney Infection, Bladder Infection, Kidney Stones, UTI-Chronic Gastrointestinal: Yes (S/P APPY, ROSALIO, GASTRIC SLEEVE, TUMMY TUCK) Chronic Diarrhea, Gall Bladder Disease, Irritable Bowel Musculoskeletal: Yes (BILAT KNEE SCOPES; L WRIST; R ELBOW) Arthritis Endocrine: Yes (OBESITY) Diabetes, Non-Insulin dep HEENT: No Loss of Vision: Bilateral Hearing Impairment: Denies Cancer: No Psychosocial: Yes Anxiety Integumentary: No (MULTIPLE TATTOOS) Blood Disorders: No Adverse Reaction/Blood Tranf: No Family Medical History No Pertinent Family Hx ADDIITIONAL SURGICAL/PROCEDURAL HISTORY: -LEFT KNEE ARTHROSCOPY 07/2015 AND 12/2015 -RIGHT KNEE ARTHROSCOPY - X 4 -HYSTERECTOMY 2003 -APPENDECTOMY 2003 -LEFT SALPINGO-OOPHORECTOMY AND CHOLECYSTECTOMY 07/28/2016 -GASTRIC SLEEVE 11/17/2016 -TUMMY TUCK -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 0oz. 74.411019ds; 38.00 BMI Method:Stated General Appearance: WD/WN, no apparent distress Neck: non-tender, full range of motion Respiratory: no respiratory distress, no accessory muscle use Hips: bilateral hip non-tender, bilateral hip normal inspection, bilateral hip normal range of motion Legs: bilateral leg non-tender, bilateral leg normal inspection, bilateral leg normal range of motion Knees: right knee other (normal appearing, no erythema, no ecchymosis or effusion. ) Ankles: bilateral ankle non-tender, bilateral ankle normal inspection, bilateral ankle normal range of motion Feet: bilateral foot non-tender, bilateral foot normal inspection, bilateral foot normal range of motion 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: alert, normal mood/affect, oriented x 3 Skin: normal color, warm/dry Progress/Results/Core Measures Results/Orders My Orders Orders - JAELYN MORALES APRN Knee, Right, 3 Views (08/02/21 13:10) Hydrocodone/Apap 5/325 Tablet (Lortab 5 (08/02/21 13:45) Ibuprofen Tablet (Motrin Tablet) (08/02/21 13:45) Medications Given in ED Current Medications Medications Dose Ordered Sig/Rachelle Route Start Time Stop Time Status Last Admin Dose Admin Acetaminophen/ Hydrocodone Bitart 1 ea ONCE ONCE PO 08/02/21 13:45 08/02/21 13:46 DC 08/02/21 13:45 1 EA Ibuprofen 800 mg ONCE ONCE PO 08/02/21 13:45 08/02/21 13:46 DC 08/02/21 13:46 800 MG Vital Signs/I&O 08/02/21 08/02/21 08/02/21 12:59 13:45 13:46 Temp 36.5 36.5 36.5 Pulse 70 Resp 18 B/P (MAP) 147/75 (99) Pulse Ox 97 O2 Delivery Room Air Blood Pressure Mean: 99 Departure Impression Primary Impression: Sprain of knee Disposition: 01 HOME, SELF-CARE Condition: Stable Departure-Patient Inst. Decision time for Depature: 13:13 Referrals: [facility] (PCP/Family) Primary Care Physician Patient Instructions: Knee Sprain ED Add. Discharge Instructions: 1. Ice pack to the knee 2. tylenol and ibuprofen for pain control All discharge instructions reviewed with patient and/or family. Voiced understanding. Work/School Note: Work Release Form Date Seen in the Emergency Department: August 02, 2021 Return to Work: August 04, 2021 JAELYN MORALES APRN August 02, 2021 13:13
[2021-08-02] MEDS ORDERED: IBUPROFEN 800 MG (MOTRIN) TAB PO ONE (13:45)
[2021-08-02] MEDS ORDERED: HYDROcodone/APAP 5 MG/325 MG (LORTAB) TAB PO ONE (13:45)
--- NOTE | 2021-08-02 13:48 | Diagnostic Imaging Report ---
INDICATION: Pain, status post injury. Fall. COMPARISON: None. FINDINGS: 3 views of the right knee joint demonstrate no acute fracture or dislocation. No focal osseous lesions are seen. No significant joint effusion is seen. The surrounding soft tissue structures are unremarkable. There are no radiopaque foreign bodies. IMPRESSION: 1. No acute fractures or dislocations of the right knee joint. Dictated by: Dictated on workstation # [id number]
[2021-08-02 13:59] VITALS: BP 147/75
== END 2021-08-02 13:59 | disposition home or self-care (01) ==
LOC: EDUNIT# 12:53 → ER 12:56
DX: S83.91XA Sprain of unspecified site of right knee, initial encounter (principal); W01.0XXA Fall on same level from slipping, tripping and stumbling without subsequent striking against object, initial encounter; Y92.512 Supermarket, store or market as the place of occurrence of the external cause
CPT/HCPCS: 73562

== ENCOUNTER → 2021-10-01 | Outpatient (CLI) | payer OTHER ==
--- NOTE | 2021-10-01 10:28 | Diagnostic Imaging Report ---
EXAMINATION: Magnetic resonance imaging of the right knee without intravenous contrast DATE: October 01, 2021. COMPARISON: Right knee radiographs August 02, 2021. INDICATION: 46-year-old female, right knee pain. Fall on August 02, 2021. TECHNIQUE: Multiplanar, multisequence non contrast enhanced MR imaging was accomplished. FINDINGS: MENISCI: The medial meniscus is intact. The lateral meniscus is intact. LIGAMENTS AND TENDONS: The anterior and posterior cruciate ligaments are intact. The medial collateral ligament is intact. The iliotibial band, mid third lateral capsular ligament, fibular collateral ligament, biceps femoris tendon and conjoined tendon are intact. The quadriceps tendon and patella ligament are intact. JOINT: The articular cartilage surfaces are intact. There is no knee joint effusion, prominent synovitis, or intra-articular body. BONE: There is unremarkable bone marrow signal. Specifically, negative for fracture, osteomyelitis, osteonecrosis, or marrow replacing process. BURSAE AND SOFT TISSUES: There is minimal fluid in the popliteal fossa without sizable Vega's cyst. IMPRESSION: 1. Intact menisci and cruciate ligaments. Additional ligaments and tendons are intact. 2. No acute fracture or bone contusion. 3. Intact articular cartilage. No knee joint effusion. 4. Minimal fluid in the popliteal fossa without sizable Vega's cyst. Dictated by: Dictated on workstation # [id number]
== END ==
LOC: RAD 08:00
PROVIDERS: ATTEND Nurse Practitioner
DX: S83.221A Peripheral tear of medial meniscus, current injury, right knee, initial encounter (principal); W19.XXXA Unspecified fall, initial encounter
CPT/HCPCS: 73721

== ENCOUNTER 2022-01-30 15:05 | Emergency (ER) | payer OTHER ==
[~2022-01-30] VITALS: Ht 157.5 cm; Wt 95.3 kg
--- NOTE | 2022-01-30 16:45 | ED Lower Extremity ---
General Chief Complaint: Lower Extremity Stated Complaint: RIGHT KNEE PAIN Nursing Triage Note: PT TO TRIAGE VIA WC W C/O RIGHT KNEE PAIN X3 HRS. PT REPORTS SHE BENT DOWN TO PICK SOMETHING UP WHEN THE PAIN BEGAN, PT TOOK TYLENOL APPROX 2.5 HRS AGO. PT A&OX4. Source: patient Exam Limitations: no limitations History of Present Illness Date Seen by Provider: Jan 30, 2022 Time Seen by Provider: 16:50 Initial Comments Patient is a 46-year-old female who presents to the emergency room with a chief complaint of nontraumatic right knee pain. Patient states she bent down putting pressure on her right knee and had pain approximately 3 hours prior to arrival. No twisting, falls or direct trauma. She had a slip and fall in [facility] about 6 months ago. Has had subsequent MRI completed which was reviewed and was negative. No numbness tingling or weakness to the extremity. Onset: this morning Pain/Injury Location: right knee Method of Injury: other (bending today) Allergies and Home Medications Allergies Coded Allergies: No Known Drug Allergies (Unverified , 06/01/20) Patient Home Medication List Home Medication List Reviewed: Yes Review of Systems Constitutional: see HPI Respiratory: no symptoms reported Cardiovascular: no symptoms reported Musculoskeletal: joint pain (right knee) Skin: no symptoms reported All Other Systems Reviewed Negative Unless Noted: Yes Past Pmeodba-Sebojb-Boxwwc Hx Patient Social History Tobacco Use?: No Use of E-Cig and/or Vaping dev: No Substance use?: No Alcohol Use?: No Immunizations Up To Date Tetanus Booster (TDap): Unknown PED Vaccines UTD: Yes Influenza Vaccine Up-to-Date: Yes; Up-to-Date First/Initial COVID19 Vaccinat: 2020 Second COVID19 Vaccination Marco: 2020 Third COVID19 Vaccination Date: 2020 COVID19 Vaccine Unhairing Machine Operator: MODERNA 3 SHOTS TOTAL Seasonal Allergies Seasonal Allergies: No Past Medical History Surgery/Hospitalization HX: C-SECTIONS X 4, LEFT KNEE ARTHROSCOPY X 2, RIGHT KNEE SCOPE X 1, GASTRIC SLEEVE--11/17/2016 "TUMMY TUCK" LEFT WRIST SURGERY RIGHT ELBOW SURGERY APPENDECTOMY--2003 CHOLECYSTECTOMY AND LEFT SALPINGO-OOPHORECTOMY 07/28/2016 HYSTERECTOMY---2003 BILATERAL TUBAL LIGATION 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 Sexually Transmitted Disease: No HIV/AIDS: No Genitourinary: Yes Kidney Infection, Bladder Infection, Kidney Stones, UTI-Chronic Gastrointestinal: Yes (S/P APPY, ROSALIO, GASTRIC SLEEVE, TUMMY TUCK) Chronic Diarrhea, Gall Bladder Disease, Irritable Bowel Musculoskeletal: Yes (BILAT KNEE SCOPES; L WRIST; R ELBOW) Arthritis Endocrine: Yes (OBESITY) Diabetes, Non-Insulin dep HEENT: No Loss of Vision: Bilateral Hearing Impairment: Denies Cancer: No Psychosocial: Yes Anxiety Integumentary: No (MULTIPLE TATTOOS) Blood Disorders: No Adverse Reaction/Blood Tranf: No Family Medical History No Pertinent Family Hx ADDIITIONAL SURGICAL/PROCEDURAL HISTORY: -LEFT KNEE ARTHROSCOPY 07/2015 AND 12/2015 -RIGHT KNEE ARTHROSCOPY - X 4 -HYSTERECTOMY 2003 -APPENDECTOMY 2003 -LEFT SALPINGO-OOPHORECTOMY AND CHOLECYSTECTOMY 07/28/2016 -GASTRIC SLEEVE 11/17/2016 -TUMMY TUCK -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 0oz. 74.737835xn; 38.00 BMI Method:Stated General Appearance: WD/WN, no apparent distress, other (Sitting comfortably in wheelchair, no acute distress) Cardiovascular: regular rate, rhythm Respiratory: no respiratory distress, no accessory muscle use Knees: right knee no evidence of injury, right knee bone tenderness (Patient complains of bony tenderness over the entirety of the right knee joint), right knee swelling (Minimal swelling noted to the right anterior knee), right knee other (Patient is very apprehensive with any manipulation of the right lower extremity. She resists extension and flexion of the right knee joint. She is barely able to tolerate anterior and posterior drawer. Does not allow Pam's or Sloan's testing. No crepitance is palpated in the knee with what limited exam I can perform.) Ankles: right ankle non-tender, right ankle normal inspection, right ankle normal range of motion, right ankle no evidence of injury Feet: right foot non-tender, right foot normal inspection, right foot normal range of motion, right foot no evidence of injury 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: no motor/sensory deficits, alert, oriented x 3 Skin: normal color, warm/dry Progress/Results/Core Measures Results/Orders My Orders Orders - SHI DIAS MD Lidocaine 4% Patch (Salonpas 4% Patch) (01/31/22 09:00) Lidocaine 4% Patch (Salonpas 4% Patch) (01/30/22 17:22) Vital Signs/I&O 01/30/22 01/30/22 15:20 17:40 Temp 37.0 37.0 Pulse 75 75 Resp 20 20 B/P (MAP) 123/83 (96) 123/83 Pulse Ox 99 99 O2 Delivery Room Air Room Air Blood Pressure Mean: 96 Progress Progress Note : Time: 17:12 Progress Note MRI done to evaluate the right knee as follows: [facility], [place] NAME: FLAKO JEREZ [facility] REC#: [id number] PT STATUS: REG CLI : 1975 PHYSICIAN: SONIA [facility] ADMIT DATE: 10/01/21/RAD Signed Date of Exam:10/01/21 MRI RT LOWER EXT JOINT W/O EXAMINATION: Magnetic resonance imaging of the right knee without intravenous contrast DATE: October 01, 2021. COMPARISON: Right knee radiographs August 02, 2021. INDICATION: 46-year-old female, right knee pain. Fall on August 02, 2021. TECHNIQUE: Multiplanar, multisequence non contrast enhanced MR imaging was accomplished. FINDINGS: MENISCI: The medial meniscus is intact. The lateral meniscus is intact. LIGAMENTS AND TENDONS: The anterior and posterior cruciate ligaments are intact. The medial collateral ligament is intact. The iliotibial band, mid third lateral capsular ligament, fibular collateral ligament, biceps femoris tendon and conjoined tendon are intact. The quadriceps tendon and patella ligament are intact. JOINT: The articular cartilage surfaces are intact. There is no knee joint effusion, prominent synovitis, or intra-articular body. BONE: There is unremarkable bone marrow signal. Specifically, negative for fracture, osteomyelitis, osteonecrosis, or marrow replacing process. BURSAE AND SOFT TISSUES: There is minimal fluid in the popliteal fossa without sizable Vega's cyst. IMPRESSION: 1. Intact menisci and cruciate ligaments. Additional ligaments and tendons are intact. 2. No acute fracture or bone contusion. 3. Intact articular cartilage. No knee joint effusion. 4. Minimal fluid in the popliteal fossa without sizable Vega's cyst. Dictated by: Dictated on workstation # [id number] Dict: 10/01/21 1012 Trans: 10/01/21 1154 [facility] [id number] Interpreted by: HORACE MELENDEZ MD Electronically signed by: HORACE MELENDEZ MD 10/01/21 1156 Patient seen and evaluated, right knee pain after bending down earlier this morning. Took Tylenol without relief. Exam shows slight swelling over the right knee joint. No erythema. No joint instability. Distal neurovascularly intact. Supple calf. Patient states she cannot take ibuprofen due to prior gastric bypass. Recommend continuing her Voltaren gel as well as lidocaine patches to the knee and follow-up with orthopedics as well as [facility]. No clinical or objective findings to warrant emergent imaging from the department at this time. No evidence of joint dislocation, fracture. Departure Impression Primary Impression: Internal derangement of right knee Disposition: 01 HOME, SELF-CARE Condition: Stable Departure-Patient Inst. Decision time for Depature: 16:58 Referrals: [facility] (PCP/Family) Primary Care Physician Patient Instructions: Chronic Knee Pain Add. Discharge Instructions: Continue to use the diclofenac gel on your right knee as directed. You can supplement with extra strength Tylenol, 2 tablets every 6 hours as n eeded for pain. Ice packs to the right knee. Lidocaine patches which are obtainable [id number] for pain. Please follow packaging instructions. Follow-up with community health as well as orthopedics. I have put contact information for Dr. Lerma as well as Dr. Mcintyre on your paperwork. Return to the emergency department for any new, concerning or emergent complaints. Copy Copies To 1: ROLY POPE DO Copies To 2: PATY MCINTYRE MD; HERSON LERMA MD, KATHRYN M MD Jan 30, 2022 16:45
[2022-01-30] MEDS ORDERED: LIDOCAINE 4% (SALONPAS) PATCH ONE (17:22)
[2022-01-30 17:40] VITALS: BP 123/83
[2022-01-31] MEDS ORDERED: LIDOCAINE 4% (SALONPAS) PATCH TOP SCH (09:00)
== END 2022-01-30 17:41 | disposition home or self-care (01) ==
LOC: EDUNIT# 15:05 → ER 15:09
DX: M23.91 Unspecified internal derangement of right knee (principal); E66.9 Obesity, unspecified; Z68.38 Body mass index [BMI] 38.0-38.9, adult
CPT/HCPCS: 99281

== ENCOUNTER 2022-08-03 16:39 | Emergency (ER) | payer OTHER ==
[~2022-08-03] VITALS: Ht 157.5 cm; Wt 98.0 kg
--- NOTE | 2022-08-03 17:10 | ED Abdominal Pain ---
General Chief Complaint: Abdominal/GI Problems Stated Complaint: ADB PAIN|BLOATING Source of Information: Patient Exam Limitations: No Limitations History of Present Illness Date Seen by Provider: August 03, 2022 Time Seen by Provider: 17:00 Initial Comments 46-year-old female presents to the ED with complaints of generalized abdominal p ain and bloating for the last 2 weeks. States the abdominal pain is worse after eating. She describes the pain as cramping. Reports she is also having issues with vomiting. Denies fevers, chest pain, shortness of air, diarrhea, constipation, dysuria, vaginal bleeding or discharge. States last bowel movement was 1 to 2 hours ago and normal, states he has a bowel movement daily. She is currently being treated for a UTI, states she has 1 day left of ciprofloxacin. Past medical history includes irregular heartbeat, she does not take any medications this time. Allergies and Home Medications Allergies Coded Allergies: No Known Drug Allergies (Unverified , 06/01/20) Patient Home Medication List Home Medication List Reviewed: Yes Dicyclomine HCl (Dicyclomine HCl) 10 Mg Capsule, 10 MG PO ACHS Prescribed by: Flor Hernandez on 08/03/222040 Ondansetron (Ondansetron Odt) 4 Mg Tab.rapdis, 4 MG SL Q4H PRN for NAUSEA/VOMITING Prescribed by: Flor Hernandez on 08/03/222041 Review of Systems Review of Systems Constitutional: see HPI Past Jrjynwp-Ttopsk-Muadff Hx Patient Social History Tobacco Use?: No Use of E-Cig and/or Vaping dev: No Substance use?: No Alcohol Use?: No Pt feels they are or have been: No Immunizations Up To Date Tetanus Booster (TDap): Unknown PED Vaccines UTD: Yes First/Initial COVID19 Vaccinat: 2020 Second COVID19 Vaccination Marco: 2020 Third COVID19 Vaccination Date: 2020 Seasonal Allergies Seasonal Allergies: No Past Medical History Surgery/Hospitalization HX: C-SECTIONS X 4, LEFT KNEE ARTHROSCOPY X 2, RIGHT KNEE SCOPE X 1, GASTRIC SLEEVE--11/17/2016 "TUMMY TUCK" LEFT WRIST SURGERY RIGHT ELBOW SURGERY APPENDECTOMY--2003 CHOLECYSTECTOMY AND LEFT SALPINGO-OOPHORECTOMY 07/28/2016 HYSTERECTOMY---2003 BILATERAL TUBAL LIGATION 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 Sexually Transmitted Disease: No HIV/AIDS: No Genitourinary: Yes Kidney Infection, Bladder Infection, Kidney Stones, UTI-Chronic Gastrointestinal: Yes (S/P APPY, ROSALIO, GASTRIC SLEEVE, TUMMY TUCK) Chronic Diarrhea, Gall Bladder Disease, Irritable Bowel Musculoskeletal: Yes (BILAT KNEE SCOPES; L WRIST; R ELBOW) Arthritis Endocrine: Yes (OBESITY) Diabetes, Non-Insulin dep HEENT: No Loss of Vision: Bilateral Hearing Impairment: Denies Cancer: No Psychosocial: Yes Anxiety Integumentary: No (MULTIPLE TATTOOS) Blood Disorders: No Adverse Reaction/Blood Tranf: No Family Medical History No Pertinent Family Hx ADDIITIONAL SURGICAL/PROCEDURAL HISTORY: -LEFT KNEE ARTHROSCOPY 07/2015 AND 12/2015 -RIGHT KNEE ARTHROSCOPY - X 4 -HYSTERECTOMY 2003 -APPENDECTOMY 2003 -LEFT SALPINGO-OOPHORECTOMY AND CHOLECYSTECTOMY 07/28/2016 -GASTRIC SLEEVE 11/17/2016 -TUMMY TUCK -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 0oz. 74.979873ti; 38.00 BMI Method:Stated General Appearance: WD/WN, no apparent distress Neck: supple, normal inspection Respiratory: lungs clear, normal breath sounds, no respiratory distress, no accessory muscle use Cardiovascular: regular rate, rhythm Gastrointestinal: normal bowel sounds, non tender, soft Extremities: normal range of motion, normal inspection 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: alert, normal mood/affect Skin: normal color, warm/dry Progress/Results/Core Measures Results/Orders Lab Results Laboratory Tests Test 08/03/22 17:37 08/03/22 20:04 Range/Units White Blood Count 9.1 4.3-11.0 10^3/uL Red Blood Count 5.22 H 3.80-5.11 10^6/uL Hemoglobin 14.2 11.5-16.0 g/dL Hematocrit 44 35-52 % Mean Corpuscular Volume 84 80-99 fL Mean Corpuscular Hemoglobin 27 25-34 pg Mean Corpuscular Hemoglobin Concent 32 32-36 g/dL Red Cell Distribution Width 14.4 10.0-14.5 % Platelet Count 288 130-400 10^3/uL Mean Platelet Volume 10.5 9.0-12.2 fL Immature Granulocyte % (Auto) 0 % Neutrophils (%) (Auto) 58 42-75 % Lymphocytes (%) (Auto) 32 12-44 % Monocytes (%) (Auto) 7 0-12 % Eosinophils (%) (Auto) 3 0-10 % Basophils (%) (Auto) 1 0-10 % Neutrophils # (Auto) 5.2 1.8-7.8 10^3/uL Lymphocytes # (Auto) 2.9 1.0-4.0 10^3/uL Monocytes # (Auto) 0.6 0.0-1.0 10^3/uL Eosinophils # (Auto) 0.2 0.0-0.3 10^3/uL Basophils # (Auto) 0.1 0.0-0.1 10^3/uL Immature Granulocyte # (Auto) 0.0 0.0-0.1 10^3/uL Percent Immature Platelet Fraction 4.7 0.0-7.6 % Sodium Level 140 135-145 MMOL/L Potassium Level 4.1 3.6-5.0 MMOL/L Chloride Level 111 H 98-107 MMOL/L Carbon Dioxide Level 18 L 21-32 MMOL/L Anion Gap 11 5-14 MMOL/L Blood Urea Nitrogen 11 7-18 MG/DL Creatinine 0.71 0.60-1.30 MG/DL Estimat Glomerular Filtration Rate 105 BUN/Creatinine Ratio 15 Glucose Level 82 70-105 MG/DL Calcium Level 8.4 L 8.5-10.1 MG/DL Corrected Calcium 8.7 8.5-10.1 MG/DL Total Bilirubin 0.2 0.1-1.0 MG/DL Aspartate Amino Transf (AST/SGOT) 18 5-34 U/L Alanine Aminotransferase (ALT/SGPT) 11 0-55 U/L Alkaline Phosphatase 51 40-136 U/L Total Protein 7.0 6.4-8.2 GM/DL Albumin 3.6 3.2-4.5 GM/DL Amylase Level 77 25-125 U/L Lipase 78 8-78 U/L Urine Color YELLOW Urine Clarity SL CLOUDY Urine pH 5.5 5-9 Urine Specific [place] 1.010 L 1.016-1.022 Urine Protein NEGATIVE NEGATIVE Urine Glucose (UA) NEGATIVE NEGATIVE Urine Ketones NEGATIVE NEGATIVE Urine Nitrite NEGATIVE NEGATIVE Urine Bilirubin NEGATIVE NEGATIVE Urine Urobilinogen 1.0 < = 1.0 MG/DL Urine Leukocyte Esterase NEGATIVE NEGATIVE Urine RBC (Auto) NEGATIVE NEGATIVE Urine RBC 0-2 /HPF Urine WBC 0-2 /HPF Urine Squamous Epithelial Cells 10-25 H /HPF Urine Crystals PRESENT H /LPF Urine Amorphous Sediment MOD TYLER URATES H /LPF Urine Bacteria FEW H /HPF Urine Casts NONE /LPF Urine Mucus MODERATE H /LPF Urine Culture Indicated NO My Orders Orders - FLOR HERNANDEZ APRN Comprehensive Metabolic Panel (08/03/22 17:06) Lipase (08/03/22 17:06) Amylase (08/03/22 17:06) Ua Culture If Indicated (08/03/22 17:06) Cbc With Automated Diff (08/03/22 17:06) Ct Abdomen/Pelvis W (08/03/22 17:06) Ed Iv/Invasive Line Start (08/03/22 17:10) Ns Iv 1000 Ml (Sodium Chloride 0.9%) (08/03/22 17:15) Fentanyl Inj (Sublimaze Injection) (08/03/22 17:15) Ondansetron Injection (Zofran Injectio (08/03/22 17:15) Iohexol Injection (Omnipaque 350 Mg/Ml 1 (08/03/22 18:00) Ns (Ivpb) (Sodium Chloride 0.9% Ivpb Bag (08/03/22 18:00) Dicyclomine Capsule (Bentyl Capsule) (08/03/22 20:00) Medications Given in ED Vital Signs/I&O 08/03/22 08/03/22 16:48 20:50 Temp 36.5 Pulse 79 62 Resp 16 16 B/P (MAP) 105/76 (86) 101/60 Pulse Ox 98 96 O2 Delivery Room Air Room Air 08/04/22 00:00 Intake Total 1000 ml Balance 1000 ml Progress Progress Note : Progress Note Patient seen and evaluated, resting in bed, no acute distress. Based on exam and symptoms, work up initiated including CBC, CMP, amylase, lipase, UA, and CT abdomen and pelvis. IV fluids, fentanyl, and zofran ordered. Labs and CT reviewed. CBC grossly normal. CMP shows increased chloride 111, decreased CO2 18. UA negative for infection. CT negative for acute findings. Results discussed with patient. Patient reports some improvement in pain. I offered a IM dose of bentyl, patient did not want an injection, but she will take an oral Bentyl. I will discharge with bentyl and zofran. Discharge instructions and return precautions provided. Diagnostic Imaging Diagonstic Imaging: CT Plain Films/CT/US/NM/MRI: abdomen, pelvis Comments [facility], [place] NAME: FLAKO JEREZ [facility] REC#: [id number] PT STATUS: REG ER : 1975 PHYSICIAN: FLOR HERNANDEZ APRN ADMIT DATE: 08/03/22/ER Signed Date of Exam:08/03/22 CT ABDOMEN/PELVIS W INDICATION: Abdominal pain x2 weeks, nausea and vomiting. TECHNIQUE: Multiple contiguous axial images were obtained through the abdomen and pelvis after administration of intravenous contrast. Auto Exposure Controls were utilized during the CT exam to meet ALARA standards for radiation dose reduction. All CT scans use one or more of the following dose optimizing techniques: automated exposure control, MA and/or KvP adjustment based on patient size and exam type or iterative reconstruction. FINDINGS: The visualized portions of the lung bases show some minimal dependent atelectatic changes. There is no consolidation or pleural fluid. Previously described micronodule in the right lung base is no longer visualized. There is no pleural fluid or free intraperitoneal air. The liver shows no focal lesion. Gallbladder is surgically absent. Spleen is unremarkable. There are postop changes in the stomach. The adrenals and pancreas and kidneys all appear normal. There is no retroperitoneal mass or adenopathy. There is no ascites or abnormal fluid collection. Visualized bowel loops appear unremarkable. The patient appears to have had previous hysterectomy. Patient appears to have had prior appendectomy. IMPRESSION: Postop changes status post gastric surgery as well as cholecystectomy and prior appendectomy and hysterectomy. No acute process is visualized in the abdomen or pelvis. Dictated by: Dictated on workstation # [id number] Dict: 08/03/228 Trans: 08/03/221907 [id number] [id number] Interpreted by: LYNDA OLSON MD Electronically signed by: LYNDA OLSON MD 08/03/221907 Departure Impression Primary Impression: Abdominal pain Qualified Codes: R10.84 - Generalized abdominal pain Disposition: HOME, SELF-CARE Condition: Stable Departure-Patient Inst. Decision time for Depature: 20:39 Referrals: [facility] (PCP/Family) Primary Care Physician Patient Instructions: Abdominal Pain, Adult ED Add. Discharge Instructions: Take dicyclomine before meals and at bedtime to help prevent abdominal cramping and pain after eating. Take Zofran as needed for nausea and vomiting, only take when needed because it can cause constipation. Follow-up with your primary care provider next week. Finish your antibiotic for your UTI. Return for severe pain, recurrent vomiting, or any other new, concerning, or worsening symptoms. All discharge instructions reviewed with patient and/or family. Voiced understanding. Scripts Ondansetron (Ondansetron Odt) 4 Mg Tab.rapdis 4 MG SL Q4H PRN for NAUSEA/VOMITING, #20 TAB 0 Refills Prov: FLOR HERNANDEZ APRN 08/03/22 Dicyclomine HCl (Dicyclomine HCl) 10 Mg Capsule 10 MG PO ACHS for 14 Days, #56 CAP 0 Refills Prov: FLOR HERNANDEZ APRN 08/03/22 FLOR HERNANDEZ APRN August 03, 2022 17:09
[2022-08-03] MEDS ORDERED: fentaNYL INJ 100 MCG/2 ML AMP IVP ONE (17:15)
[2022-08-03] MEDS ORDERED: ONDANSETRON 4 MG/2 ML (SDV) Z0FRAN IVP ONE (17:15)
[2022-08-03] MEDS ORDERED: NS IV 1000 ML 1,000 ML IV SCH (17:15)
[2022-08-03 17:39] LABS: BASOPHILS # (AUTO) 0.1 10^3/uL (0.0-0.1); BASOPHILS % (AUTO) 1 % (0-10); EOSINOPHILS # (AUTO) 0.2 10^3/uL (0.0-0.3); EOSINOPHILS % (AUTO) 3 % (0-10); HEMOGLOBIN 14.2 g/dL (11.5-16.0); LYMPHOCYTES # (AUTO) 2.9 10^3/uL (1.0-4.0)
[2022-08-03 17:41] LABS: HEMATOCRIT 44 % (35-52); LYMPHOCYTES % (AUTO) 32 % (12-44); MEAN CORPUSCULAR HEMOGLOBIN 27 pg (25-34); MEAN CORPUSCULAR HGB CONC 32 g/dL (32-36); MEAN CORPUSCULAR VOLUME 84 fL (80-99); MEAN PLATELET VOLUME 10.5 fL (9.0-12.2); MONOCYTES # (AUTO) 0.6 10^3/uL (0.0-1.0); MONOCYTES % (AUTO) 7 % (0-12); NEUTROPHILS # (AUTO) 5.2 10^3/uL (1.8-7.8); NEUTROPHILS % (AUTO) 58 % (42-75); PLATELET COUNT 288 10^3/uL (130-400); WHITE BLOOD COUNT 9.1 10^3/uL (4.3-11.0)
[2022-08-03 17:50] LABS: ALBUMIN 3.6 GM/DL (3.2-4.5); POTASSIUM 4.1 MMOL/L (3.6-5.0)
[2022-08-03 17:51] LABS: CALCIUM 8.4 MG/DL (8.5-10.1)
[2022-08-03 17:54] LABS: BILIRUBIN,TOTAL 0.2 MG/DL (0.1-1.0)
[2022-08-03 17:56] LABS: CREATININE SERUM 0.71 MG/DL (0.60-1.30)
[2022-08-03] MEDS ORDERED: IOHEXOL 350 MG/ML 100 ML (OMNIPAQUE 350) VIAL IV ONE (18:00)
[2022-08-03] MEDS ORDERED: NS 100 ML (IVPB) BAG IV ONE (18:00)
--- NOTE | 2022-08-03 18:46 | Diagnostic Imaging Report ---
INDICATION: Abdominal pain x2 weeks, nausea and vomiting. TECHNIQUE: Multiple contiguous axial images were obtained through the abdomen and pelvis after administration of intravenous contrast. Auto Exposure Controls were utilized during the CT exam to meet ALARA standards for radiation dose reduction. All CT scans use one or more of the following dose optimizing techniques: automated exposure control, MA and/or KvP adjustment based on patient size and exam type or iterative reconstruction. FINDINGS: The visualized portions of the lung bases show some minimal dependent atelectatic changes. There is no consolidation or pleural fluid. Previously described micronodule in the right lung base is no longer visualized. There is no pleural fluid or free intraperitoneal air. The liver shows no focal lesion. Gallbladder is surgically absent. Spleen is unremarkable. There are postop changes in the stomach. The adrenals and pancreas and kidneys all appear normal. There is no retroperitoneal mass or adenopathy. There is no ascites or abnormal fluid collection. Visualized bowel loops appear unremarkable. The patient appears to have had previous hysterectomy. Patient appears to have had prior appendectomy. IMPRESSION: Postop changes status post gastric surgery as well as cholecystectomy and prior appendectomy and hysterectomy. No acute process is visualized in the abdomen or pelvis. Dictated by: Dictated on workstation # [id number]
[2022-08-03] MEDS ORDERED: DICYCLOMINE 10 MG (BENTYL) CAP PO ONE (20:00)
[2022-08-03 20:06] LABS: BILIRUBIN,URINE NEGATIVE (NEGATIVE); CLARITY,URINE SL CLOUDY; COLOR,URINE YELLOW; GLUCOSE, URINE (UA) NEGATIVE (NEGATIVE); KETONES,URINE NEGATIVE (NEGATIVE); LEUKOCYTE ESTERASE ,URINE NEGATIVE (NEGATIVE); NITRITE,URINE NEGATIVE (NEGATIVE); PH,URINE 5.5 (5-9); PROTEIN,URINE NEGATIVE (NEGATIVE)
[2022-08-03 20:16] LABS: AMORPHOUS SEDIMENT,UR MOD AMOR URATES /LPF; BACTERIA,URINE FEW /HPF; RBC,URINE 0-2 /HPF; WBC,URINE 0-2 /HPF
[2022-08-03] MEDS ORDERED: DICY10CA12 PO (20:41)
[2022-08-03] MEDS ORDERED: ONDA4TAB11 SL (20:42)
[2022-08-03 20:50] VITALS: BP 101/60
== END 2022-08-03 20:50 | disposition home or self-care (01) ==
LOC: EDUNIT# 16:39 → ER 16:41
DX: R10.84 Generalized abdominal pain (principal); R11.2 Nausea with vomiting, unspecified; N39.0 Urinary tract infection, site not specified; E87.8 Other disorders of electrolyte and fluid balance, not elsewhere classified; R79.81 Abnormal blood-gas level; E66.9 Obesity, unspecified; Z68.39 Body mass index [BMI] 39.0-39.9, adult; Z90.49 Acquired absence of other specified parts of digestive tract; Z87.19 Personal history of other diseases of the digestive system
CPT/HCPCS: 36415; 74177; 80053; 81000; 82150; 83690; 85025

== ENCOUNTER 2022-08-26 14:44 | Emergency (ER) | payer SELFPAY ==
[~2022-08-26] VITALS: Ht 157 cm; Wt 97.0 kg
[~2022-08-26 14:44] MED LIST changes: +DICY10CA12 PO
[2022-08-26] MEDS ORDERED: LACTATED RINGERS 1,000 ML IV STA (14:56)
--- NOTE | 2022-08-26 15:02 | ED Syncope ---
General Chief Complaint: Dizziness/Syncope Stated Complaint: SOB | WEAKNESS | Nursing Triage Note: PT AMB TO RM 5 PT CO OF SYNCOPAL EPISODE. PT STATES R LEG SWOLLEN, PT STATES HAS HX OF BLOOD CLOT IN R ARM APPROX 1 YEAR AGO. PT CO OF SOA. PT STATES DONATED PLASMA EARLIER TODAY. Source of Information: Patient Exam Limitations: No Limitations History of Present Illness Date Seen by Provider: Aug 26, 2022 Time Seen by Provider: 14:46 Initial Comments 46-year-old female with past medical history of "irregular heartbeat" coming in after a syncopal episode. She states that she was donating plasma earlier today, went to her son's house, went up 3 stairs, felt lightheaded and passed out. She feels a little short of breath. She also believes that her right leg might be slightly larger than the left and is having a little bit of pain with it. She had a cardiac catheterization through her right wrist over a year ago, she had a blood clot from that in her wrist afterwards. She was started on Eliquis and is currently off of it. She has not had any procedures in the past month, denies chest pain, palpitations, abdominal pain, nausea, vomiting, diarrhea, focal weakness or numbness, headache, vision changes, or any other concerns. She states she donates plasma 2 times a week and has been doing this for a couple of months. Allergies and Home Medications Allergies Coded Allergies: No Known Drug Allergies (Unverified , 06/01/20) Patient Home Medication List Home Medication List Reviewed: Yes Dicyclomine HCl (Dicyclomine HCl) 10 Mg Capsule, 10 MG PO ACHS Prescribed by: Flor Jaramillo on 08/03/222040 Ondansetron (Ondansetron Odt) 4 Mg Tab.rapdis, 4 MG SL Q4H PRN for NAUSEA/VOMITING Prescribed by: Flor Jaramillo on 08/03/222041 Review of Systems Constitutional: No fever EENTM: no symptoms reported Respiratory: see HPI Cardiovascular: syncope Gastrointestinal: no symptoms reported Genitourinary: no symptoms reported Musculoskeletal: see HPI Skin: no symptoms reported Psychiatric/Neurological: No Symptoms Reported Past Bxxswlb-Lqumog-Lzepsh Hx Patient Social History Tobacco Use?: No Substance use?: No Alcohol Use?: No Pt feels they are or have been: No Immunizations Up To Date Tetanus Booster (TDap): Unknown PED Vaccines UTD: Yes First/Initial COVID19 Vaccinat: 2020 Second COVID19 Vaccination Marco: 2020 Third COVID19 Vaccination Date: 2020 Seasonal Allergies Seasonal Allergies: No Past Medical History Surgery/Hospitalization HX: C-SECTIONS X 4, LEFT KNEE ARTHROSCOPY X 2, RIGHT KNEE SCOPE X 1, GASTRIC SLEEVE--11/17/2016 "TUMMY TUCK" LEFT WRIST SURGERY RIGHT ELBOW SURGERY APPENDECTOMY--2003 CHOLECYSTECTOMY AND LEFT SALPINGO-OOPHORECTOMY 07/28/2016 HYSTERECTOMY---2003 BILATERAL TUBAL LIGATION 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 Sexually Transmitted Disease: No HIV/AIDS: No Genitourinary: Yes Kidney Infection, Bladder Infection, Kidney Stones, UTI-Chronic Gastrointestinal: Yes (S/P APPY, ROSALIO, GASTRIC SLEEVE, TUMMY TUCK) Chronic Diarrhea, Gall Bladder Disease, Irritable Bowel Musculoskeletal: Yes (BILAT KNEE SCOPES; L WRIST; R ELBOW) Arthritis Endocrine: Yes (OBESITY) Diabetes, Non-Insulin dep HEENT: No Loss of Vision: Bilateral Hearing Impairment: Denies Cancer: No Psychosocial: Yes Anxiety Integumentary: No (MULTIPLE TATTOOS) Blood Disorders: No Adverse Reaction/Blood Tranf: No Family Medical History No Pertinent Family Hx ADDIITIONAL SURGICAL/PROCEDURAL HISTORY: -LEFT KNEE ARTHROSCOPY 07/2015 AND 12/2015 -RIGHT KNEE ARTHROSCOPY - X 4 -HYSTERECTOMY 2003 -APPENDECTOMY 2003 -LEFT SALPINGO-OOPHORECTOMY AND CHOLECYSTECTOMY 07/28/2016 -GASTRIC SLEEVE 11/17/2016 -TUMMY TUCK -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 0oz. 74.980393sd; 39.00 BMI Method:Stated General Appearance: No Apparent Distress, WD/WN HEENT: PERRL/EOMI, Normal ENT Inspection, Pharynx Normal Neck: Full Range of Motion, Normal Inspection, Non Tender, Supple Cardiovascular: Regular Rate, Rhythm, No Edema, Normal Peripheral Pulses Respiratory: Chest Non Tender, Lungs Clear, Normal Breath Sounds, No Accessory Muscle Use, No Respiratory Distress Gastrointestinal: Normal Bowel Sounds, Non Tender, Soft; No Distended, No Guarding Back: Normal Inspection, No CVA Tenderness Extremities: Normal Capillary Refill, Normal Inspection, Normal Range of Motion, Non Tender, No Calf Tenderness, No Pedal Edema 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: Alert, No Motor/Sensory Deficits, Normal Mood/Affect Cranial Nerves: Normal Hearing, Normal Speech Progress/Results/Core Measures Results/Orders Lab Results Laboratory Tests Test 08/26/22 15:00 Range/Units White Blood Count 8.3 4.3-11.0 10^3/uL Red Blood Count 5.46 H 3.80-5.11 10^6/uL Hemoglobin 14.9 11.5-16.0 g/dL Hematocrit 45 35-52 % Mean Corpuscular Volume 83 80-99 fL Mean Corpuscular Hemoglobin 27 25-34 pg Mean Corpuscular Hemoglobin Concent 33 32-36 g/dL Red Cell Distribution Width 14.7 H 10.0-14.5 % Platelet Count 294 130-400 10^3/uL Mean Platelet Volume 9.1 9.0-12.2 fL Immature Granulocyte % (Auto) 0 % Neutrophils (%) (Auto) 60 42-75 % Lymphocytes (%) (Auto) 29 12-44 % Monocytes (%) (Auto) 8 0-12 % Eosinophils (%) (Auto) 3 0-10 % Basophils (%) (Auto) 1 0-10 % Neutrophils # (Auto) 4.9 1.8-7.8 X 10^3 Lymphocytes # (Auto) 2.4 1.0-4.0 X 10^3 Monocytes # (Auto) 0.7 0.0-1.0 X 10^3 Eosinophils # (Auto) 0.2 0.0-0.3 10^3/uL Basophils # (Auto) 0.1 0.0-0.1 10^3/uL Immature Granulocyte # (Auto) 0.0 0.0-0.1 10^3/uL Prothrombin Time 14.4 12.2-14.7 SEC INR Comment 1.1 0.8-1.4 Activated Partial Thromboplast Time 27 24-35 SEC D-Dimer 0.33 0.00-0.49 UG/ML Sodium Level 138 135-145 MMOL/L Potassium Level 3.9 3.6-5.0 MMOL/L Carbon Dioxide Level 19 L 21-32 MMOL/L Anion Gap 8 5-14 MMOL/L Blood Urea Nitrogen 11 7-18 MG/DL Creatinine 0.73 0.60-1.30 MG/DL Estimat Glomerular Filtration Rate 101 BUN/Creatinine Ratio 15 Glucose Level 86 70-105 MG/DL Calcium Level 8.7 8.5-10.1 MG/DL Corrected Calcium 9.2 8.5-10.1 MG/DL Magnesium Level 1.8 1.6-2.4 MG/DL Total Bilirubin 0.5 0.1-1.0 MG/DL Aspartate Amino Transf (AST/SGOT) 18 5-34 U/L Alanine Aminotransferase (ALT/SGPT) 13 0-55 U/L Alkaline Phosphatase 46 40-136 U/L Troponin I < 0.028 <0.028 NG/ML B-Type Natriuretic Peptide 56.6 <100.0 PG/ML Total Protein 6.2 L 6.4-8.2 GM/DL Albumin 3.4 3.2-4.5 GM/DL My Orders Orders - PAM MORENO MD Bnp Jose Raul (08/26/22 14:56) Cbc With Automated Diff (08/26/22 14:56) Comprehensive Metabolic Panel (08/26/22 14:56) Fibrin Degradation Products (08/26/22 14:56) Magnesium (08/26/22 14:56) Protime With Inr (08/26/22 14:56) Partial Thromboplastin Time (08/26/22 14:56) Troponin I Jose Raul (08/26/22 14:56) Chest 1 View, Ap/Pa Only (08/26/22 14:56) Ed Iv/Invasive Line Start (08/26/22 14:56) Ekg Tracing (08/26/22 14:56) Monitor-Rhythm Ecg Trace Only (08/26/22 14:56) Lactated Ringers (Lr 1000 Ml Iv Solution (08/26/22 14:56) Orthostatic Vital Signs (Adult (08/26/22 14:57) Vital Signs/I&O 08/26/22 08/26/22 14:51 15:12 Temp 37.1 Pulse 88 89 89 109 Resp 16 B/P (MAP) 106/86 (93) 90/56 (67) 96/50 (65) 88/45 (59) Pulse Ox 97 Blood Pressure Mean: 93 Progress Progress Note : Progress Note 46-year-old female with above history coming in after a syncopal episode. ABCs were intact and vitals were stable on presentation. Her initial laying blood pressure was 106/86, upon standing it was 88/45 qualifying her for orthostatic hypotension. She has had multiple plasma donations over the past couple months, and did donate this morning. I suspect she is slightly volume depleted from this. An IV was placed and she was given a bolus of IV fluids. Blood pressure and symptoms did improve with this. EKG ordered and interpreted by me showing no acute ischemic changes. Labs significant for normal white blood cell count, normal hemoglobin, normal creatinine, negative D-dimer, negative troponin. Chest x-ray ordered and interpreted by me showing no pneumothorax, normal cardiac silhouette, no obvious pneumonia, and it appears similar to prior chest x-ray. In regards to the patient's complaint of her leg pain, they look identical to me, and I actually measured them and they are exactly the same. She had no pain with palpation. Given her exam and a negative D-dimer, I think it is very unlikely she has a DVT or PE. Additionally, the blood clot she had in her arm was instigated by a cardiac catheterization in the exact location that it occurred. I believe she is otherwise stable for discharge with outpatient follow-up. She was sent home with strict return precautions. Initial ECG Impression Date: Aug 26, 2022 Initial ECG Impression Time: 15:02 Initial ECG Rate: 76 Initial ECG Rhythm: Normal Sinus Comment Narrow QRS, normal axis, no significant ST changes or T wave abnormalities Diagnostic Imaging Diagonstic Imaging: Xray (chest) Comments [facility]. [place], [place] NAME: FLAKO JEREZ [facility] REC#: [id number] PT STATUS: REG ER : 1975 PHYSICIAN: PAM MORENO MD ADMIT DATE: 08/26/22/ER Signed Date of Exam:08/26/22 CHEST 1 VIEW, AP/PA ONLY EXAMINATION: Chest 1 view HISTORY: SOB, syncope COMPARISON: 05/12/2021 FINDINGS: Heart size and pulmonary vasculature are normal. The lungs are clear without consolidation, pleural effusion, or pneumothorax. The osseous structures are intact. IMPRESSION: 1. No acute radiographic abnormality in the chest. Dictated by: Dictated on workstation # [id number] Dict: 08/26/22 1523 Trans: 08/26/22 1528 [facility] [id number] Interpreted by: JAMES CANTRELL DO Electronically signed by: JAMES CANTRELL DO 08/26/22 1528 Departure Impression Primary Impression: Orthostatic syncope Disposition: 01 HOME, SELF-CARE Condition: Improved Departure-Patient Inst. Decision time for Depature: 16:10 Referrals: JAIRO KABA APRN (PCP/Family) Primary Care Physician Patient Instructions: Orthostatic hypotension Add. Discharge Instructions: Your blood pressure was low upon standing here which typically means you are dehydrated. We did give you IV fluids to help with this. We recommend drinking extra fluids over the next couple of days. You were not showing any signs of heart attack or blood clot on her evaluation here. Work/School Note: Work Release Form Date Seen in the Emergency Department: Aug 26, 2022 Return to Work: Aug 27, 2022 Restrictions: No Restrictions PAM MORENO MD Aug 26, 2022 15:02
[2022-08-26 15:06] LABS: BASOPHILS # (AUTO) 0.1 10^3/uL (0.0-0.1); BASOPHILS % (AUTO) 1 % (0-10); EOSINOPHILS # (AUTO) 0.2 10^3/uL (0.0-0.3); EOSINOPHILS % (AUTO) 3 % (0-10); HEMATOCRIT 45 % (35-52); HEMOGLOBIN 14.9 g/dL (11.5-16.0); LYMPHOCYTES # (AUTO) 2.4 X 10^3 (1.0-4.0); LYMPHOCYTES % (AUTO) 29 % (12-44); MEAN CORPUSCULAR HEMOGLOBIN 27 pg (25-34); MEAN CORPUSCULAR HGB CONC 33 g/dL (32-36); MEAN CORPUSCULAR VOLUME 83 fL (80-99); MEAN PLATELET VOLUME 9.1 fL (9.0-12.2); MONOCYTES # (AUTO) 0.7 X 10^3 (0.0-1.0); MONOCYTES % (AUTO) 8 % (0-12); NEUTROPHILS # (AUTO) 4.9 X 10^3 (1.8-7.8); NEUTROPHILS % (AUTO) 60 % (42-75); PLATELET COUNT 294 10^3/uL (130-400); WHITE BLOOD COUNT 8.3 10^3/uL (4.3-11.0)
[2022-08-26 15:12] VITALS: BP_SYST 88; BP_SYST 90; BP_SYST 96; BP_DIAS 45; BP_DIAS 50; BP_DIAS 56
[2022-08-26 15:21] LABS: ALBUMIN 3.4 GM/DL (3.2-4.5); CHLORIDE 111 MMOL/L (98-107); INR 1.1 (0.8-1.4); POTASSIUM 3.9 MMOL/L (3.6-5.0); PROTHROMBIN TIME PATIENT 14.4 SEC (12.2-14.7)
[2022-08-26 15:22] LABS: SODIUM 138 MMOL/L (135-145)
[2022-08-26 15:23] LABS: CALCIUM 8.7 MG/DL (8.5-10.1)
[2022-08-26 15:24] LABS: FIBRIN DEGRADATION PRODUCTS 0.33 UG/ML (0.00-0.49); GLUCOSE 86 MG/DL (70-105); TOTAL PROTEIN 6.2 GM/DL (6.4-8.2)
[2022-08-26 15:25] LABS: CARBON DIOXIDE 19 MMOL/L (21-32)
[2022-08-26 15:26] LABS: BILIRUBIN,TOTAL 0.5 MG/DL (0.1-1.0)
[2022-08-26 15:27] LABS: ALKALINE PHOSPHATASE 46 U/L (40-136); CREATININE SERUM 0.73 MG/DL (0.60-1.30); GFR ESTIMATED 101
[2022-08-26 15:28] LABS: BUN/CREATININE RATIO 15
[2022-08-26 15:30] LABS: ALANINE AMINOTRANSFERASE 13 U/L (0-55)
--- NOTE | 2022-08-26 15:30 | Diagnostic Imaging Report ---
EXAMINATION: Chest 1 view HISTORY: SOB, syncope COMPARISON: 05/12/2021 FINDINGS: Heart size and pulmonary vasculature are normal. The lungs are clear without consolidation, pleural effusion, or pneumothorax. The osseous structures are intact. IMPRESSION: 1. No acute radiographic abnormality in the chest. Dictated by: Dictated on workstation # [id number]
[2022-08-26 15:31] LABS: MAGNESIUM 1.8 MG/DL (1.6-2.4)
[2022-08-26 15:50] VITALS: BP 95/65
== END 2022-08-26 15:50 | disposition home or self-care (01) ==
LOC: EDUNIT# 14:44 → ER 14:46
DX: I95.1 Orthostatic hypotension (principal); E66.9 Obesity, unspecified; Z68.39 Body mass index [BMI] 39.0-39.9, adult
CPT/HCPCS: 36415; 71045; 80053; 83735; 83880; 84484; 85025; 85379; 85610; 85730; 93041

== ENCOUNTER → 2023-01-03 | Outpatient (CLI) | payer MEDICAID, OTHER ==
[~2023-01-03] MED LIST changes: +DICY-11 PO; -DICY10CA12 PO
--- NOTE | 2023-01-03 09:53 | Diagnostic Imaging Report ---
PROCEDURE: MRI lumbar spine. TECHNIQUE: Multiplanar, multisequence MRI of the lumbar spine was performed without contrast. INDICATION: Chronic lower back pain. COMPARISON: 02/04/2021 FINDINGS: For the purposes of this exam, last well-formed disc space is denoted at the L5-S1 level. Static alignment is maintained. There is no significant anteroretrolisthesis. There is no evidence of jumped facets. Vertebral body heights are maintained. There is no acute fracture. Evaluation marrow signal demonstrates subtle Modic type I change involving the inferior endplate of L5. Intervertebral disc heights are maintained, although there is loss of normal fluid type bright signal L5-S1. Posterior annular tear is also identified at L5-S1 just to the right lateral midline (image 11, series 3). Visualized portions of distal cord are unremarkable. Conus terminates at approximately the L1-L2 level. No abnormal intrathecal filling defects are seen. Pre and paravertebral soft tissue structures are unremarkable. Axial images show no large disc bulge or focal protrusion. There is mild multilevel ligamentum flavum laxity and facet arthropathy, but no significant spinal canal or neuroforaminal stenosis. IMPRESSION: 1. Early degenerative changes of the lumbar spine at the L5-S1 level as described above. 2. No acute fracture or dislocation. Dictated by: Dictated on workstation # [id number]
== END ==
LOC: RAD 08:27
PROVIDERS: ATTEND Nurse Practitioner Family
DX: M51.37 Other intervertebral disc degeneration, lumbosacral region (principal); R32 Unspecified urinary incontinence
CPT/HCPCS: 72148

== ENCOUNTER → 2023-01-03 | Outpatient (CLI) | payer MEDICAID, OTHER ==
[~2023-01-03] MED LIST changes: +LIDO700A45 TP; +NAPR500T8 PO
== END ==
LOC: CARD 08:31
PROVIDERS: ATTEND Nurse Practitioner Family
DX: R06.02 Shortness of breath (principal); R42 Dizziness and giddiness; M54.50 Low back pain, unspecified; R32 Unspecified urinary incontinence
CPT/HCPCS: 93225; 93226

== ENCOUNTER 2023-01-06 03:51 | Emergency (ER) | payer MEDICAID ==
[~2023-01-06] VITALS: Ht 157 cm; Wt 97.0 kg
[~2023-01-06 03:51] MED LIST changes: -LIDO700A45 TP; -NAPR500T8 PO
[2023-01-06 03:56] VITALS: BP 101/59
--- NOTE | 2023-01-06 04:12 | ED Upper Extremity ---
General Chief Complaint: Upper Extremity Stated Complaint: RIGHT ARM/SHOULDER PAIN Nursing Triage Note: C/O RIGHT SHOULDER PAIN X1 DAY. DENIES INJURY. Source: patient History of Present Illness Date Seen by Provider: Jan 06, 2023 Time Seen by Provider: 03:58 Initial Comments PT ARRIVES VIA POV FROM HOME C/O RIGHT SHOULDER PAIN SINCE YESTERDAY AFTERNOON 01/05/23 NO INJURY OR UNUSUAL ACTIVITY--PT IS UNEMPLOYED NO PARESTHESIAS OR MOTOR DEFICITS NO NECK PAIN NO CHEST PAIN NO SHORTNESS OF BREATH NO ABDOMINAL PAIN OR NAUSEA/VOMITING STATES SHE CAN'T MOVE IT DUE TO SEVERE PAIN TOOK 1 TYLENOL AT 2300--NO RELIEF. HAS NOT TAKEN ANYTHING ELSE FOR PAIN AT ANY TIME NO HISTORY OF SIMILAR PT IS RIGHT HANDED PT WITH CHRONIC BACK PAIN AND HAD MRI OF HER LOWER BACK 01/03/23 SHE ALSO HAD A HOLTER MONITOR ON 01/03/23 DUE TO SYNCOPE --SHE DENIES ANY RECENT SYNCOPE OR ANY INJURIES IN THE PAST DUE TO SYNCOPE PT HAS HAD MULTIPLE ORTHOPEDIC SURGERIES, AND MULTIPLE MRI'S TO VARIOUS PARTS OF BODY FOR CHRONIC BONE/JOINT COMPLAINTS, BUT HAS NEVER HAD ANY TESTS OR SURGERIES ON THIS SHOULDER. DR. BENAVIDES HAS DONE SEVERAL OF HER SURGERIES, AND HE IS THE MOST RECENT ORTHOPEDIC SURGEON SHE HAS SEEN [facility] ELSA KABA Allergies and Home Medications Allergies Coded Allergies: No Known Drug Allergies (Unverified , 06/01/20) Patient Home Medication List Home Medication List Reviewed: Yes Cyclobenzaprine HCl (Cyclobenzaprine HCl) 10 Mg Tablet, 10 MG PO Q8H PRN for SPASMS Prescribed by: TIFFANY FRANCIS on 01/06/23438 Lidocaine (Lidocaine 5% Patch) 5 % Adh..patch, 1 EACH TP Q12H PRN for Neuropathic pain Prescribed by: TIFFANY FRANCIS on 01/06/23438 Naproxen (Naproxen) 500 Mg Tablet.dr, 500 MG PO BID Prescribed by: TIFFANY FRANCIS on 01/06/23438 Discontinued Medications Dicyclomine HCl (Dicyclomine HCl) 10 Mg Capsule, 10 MG PO ACHS Discontinued Reason: No Longer Taking Prescribed by: Flor Jaramillo on 08/03/222040 Last Action: Discontinued Ondansetron (Ondansetron Odt) 4 Mg Tab.rapdis, 4 MG SL Q4H PRN for NAUSEA/VOMITING Discontinued Reason: No Longer Taking Prescribed by: Flor Jaramillo on 08/03/222041 Last Action: Discontinued Review of Systems Constitutional: no symptoms reported Respiratory: no symptoms reported Cardiovascular: no symptoms reported Gastrointestinal: no symptoms reported Genitourinary: no symptoms reported Musculoskeletal: see HPI Skin: no symptoms reported Psychiatric/Neurological: No Symptoms Reported Past Ihiyxzu-Vgnldl-Txvpox Hx Patient Social History Tobacco Use?: No Substance use?: No Alcohol Use?: No Pt feels they are or have been: No Immunizations Up To Date Tetanus Booster (TDap): Unknown PED Vaccines UTD: Yes First/Initial COVID19 Vaccinat: 2020 Second COVID19 Vaccination Marco: 2020 Third COVID19 Vaccination Date: 2020 Seasonal Allergies Seasonal Allergies: No Past Medical History Surgery/Hospitalization HX: C-SECTIONS X 4, LEFT KNEE ARTHROSCOPY X 2, RIGHT KNEE SCOPE X 1, GASTRIC SLEEVE--11/17/2016 "TUMMY TUCK" LEFT WRIST SURGERY RIGHT ELBOW SURGERY APPENDECTOMY--2003 CHOLECYSTECTOMY AND LEFT SALPINGO-OOPHORECTOMY 07/28/2016 HYSTERECTOMY---2003 BILATERAL TUBAL LIGATION 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 Sexually Transmitted Disease: No HIV/AIDS: No Genitourinary: Yes Kidney Infection, Bladder Infection, Kidney Stones, UTI-Chronic Gastrointestinal: Yes (S/P APPY, ROSALIO, GASTRIC SLEEVE, TUMMY TUCK) Chronic Diarrhea, Gall Bladder Disease, Irritable Bowel Musculoskeletal: Yes (BILAT KNEE SCOPES; L WRIST; R ELBOW) Arthritis Endocrine: Yes (OBESITY) Diabetes, Non-Insulin dep HEENT: No Loss of Vision: Bilateral Hearing Impairment: Denies Cancer: No Psychosocial: Yes Anxiety Integumentary: No (MULTIPLE TATTOOS) Blood Disorders: No Adverse Reaction/Blood Tranf: No Family Medical History No Pertinent Family Hx ADDIITIONAL SURGICAL/PROCEDURAL HISTORY: -LEFT KNEE ARTHROSCOPY 07/2015 AND 12/2015 -RIGHT KNEE ARTHROSCOPY - X 4 -HYSTERECTOMY 2003 -APPENDECTOMY 2003 -LEFT SALPINGO-OOPHORECTOMY AND CHOLECYSTECTOMY 07/28/2016 -GASTRIC SLEEVE 11/17/2016 -TUMMY TUCK -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 0oz. [id number]; 39.00 BMI Method:Stated General Appearance: WD/WN, other (EXTREMELY DRAMATIC. HOLDING RIGHT ARM VERY TIGHT TO HER BODY, FLEXED AT ELBOW WITH FOREARM ACROSS HER ABDOMEN. MALODOROUS. ) Neck: non-tender, full range of motion, supple Cardiovascular: normal peripheral pulses, regular rate, rhythm, no edema, no J VD, no murmur Respiratory: chest non-tender, normal breath sounds, no respiratory distress, no accessory muscle use Gastrointestinal: non tender, soft Back: normal inspection, no CVA tenderness, no vertebral tenderness Shoulder: bone tenderness (ANTERIOR SHOULDER / BICEPS TENDON AREA WITH MARKED TENDERNESS--PALPATION REPRODUCES PAIN ); No deformity; limited ROM (REFUSES TO MOVE SHOULDER DUE TO PAIN. 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 as tested, no motor/sensory deficits, alert, oriented x 3 Skin: normal color, warm/dry, tattoos/piercings (TATTOOS) Procedures/Interventions Splinting and Joint Reduction : Arm Sling: [place] Progress/Results/Core Measures Results/Orders My Orders Orders - TIFFANY FRANCIS DO Shoulder, Right, 3 Views (01/06/23 04:06) Ed Ortho/Other Supplies Order (01/06/23 04:36) Rx-Cyclobenzaprine Tablet (Rx-Flexeril T (01/06/23 04:36) Rx-Naproxen (Rx-Naprosyn) (01/06/23 04:36) Vital Signs/I&O 01/06/23 03:56 Temp 36.9 Pulse 85 Resp 20 B/P (MAP) 101/59 (73) Pulse Ox 97 O2 Delivery Room Air Blood Pressure Mean: 73 Progress Progress Note : Progress Note VITALS ON ARRIVAL: TEMP 36.9, HR 85, RR 20, BP 101/59, O2 SAT 97% ON ROOM AIR. XRAYS DO NOT SHOW ANY ACUTE PROCESS, PENDING RADIOLOGIST REVIEW PLACED IN SLING FOR COMFORT DISCUSSED TEST RESULTS, ANTICIPATED COURSE, SYMPTOMATIC TREATMENT, MEDICATIONS, NEED FOR FOLLOW UP AND RETURN PRECAUTIONS. REVIEWED PRIOR RECORDS, PT WITH A MULTITUDE OF VISITS--MANY FOR VARIOUS PAIN COMPLAINTS, ER VISITS, ADMITS/H&P'S/CONSULTS/DISCHARGE SUMMARIES, TESTS/PROCEDURES Diagnostic Imaging Comments XRAYS RIGHT SHOULDER--PENDING RADIOLOGIST REVIEW -NO ACUTE PROCESS Reviewed: Reviewed by Me Departure Impression Primary Impression: Right shoulder pain Disposition: HOME, SELF-CARE Condition: Stable Departure-Patient Inst. Decision time for Depature: 04:35 Referrals: JAIRO KABA APRN (PCP/Family) Primary Care Physician Patient Instructions: Shoulder Pain (DC) Add. Discharge Instructions: WEAR SLING FOR COMFORT ALTERNATE ICE AND HEAT TO AREA AT 20 MINUTE INTERVALS FOLLOW UP WITH DR. BENAVIDES NEXT WEEK FOR FURTHER CARE--CALL IN THE MORNING TO SCHEDULE AN APPOINTMENT All discharge instructions reviewed with patient and/or family. Voiced understa nding. Scripts Cyclobenzaprine HCl (Cyclobenzaprine HCl) 10 Mg Tablet 10 MG PO Q8H PRN for SPASMS, #15 TAB 0 Refills Prov: TIFFANY FRANCIS DO 01/06/23 Naproxen (Naproxen) 500 Mg Tablet. 500 MG PO BID, #20 TAB Prov: TIFFANY FRANCIS DO 01/06/23 Lidocaine (Lidocaine 5% Patch) 5 % Adh..patch 1 EACH TP Q12H PRN for Neuropathic pain MDD 2, #10 PATCH 2 patches max for 12 hours, then 12 hours patch-free period. Prov: TIFFANY FRANCIS DO 01/06/23 TIFFANY FRANCIS DO Jan 06, 2023 04:12
[2023-01-06] MEDS ORDERED: RX-NAPROXEN (NAPROSYN) 250 MG TAB PPK#4 PO STA (04:36)
[2023-01-06] MEDS ORDERED: RX-CYCLOBENZAPRINE 10 MG (FLEXERIL) TAB PPK#3 PO STA (04:36)
[2023-01-06] MEDS ORDERED: CYCL10TA25 PO ×2 (04:39→04:45)
[2023-01-06] MEDS ORDERED: LIDO700A45 TP ×2 (04:39→04:45)
[2023-01-06] MEDS ORDERED: NAPR500T8 PO ×2 (04:39→04:45)
--- NOTE | 2023-01-06 07:29 | Diagnostic Imaging Report ---
EXAMINATION: Right shoulder radiograph EXAM DATE: 01/06/2023 4:28 AM COMPARISON: None available. HISTORY: Right shoulder pain TECHNIQUE: 3 views FINDINGS: There is no acute fracture, dislocation, or destructive osseous process. The joint spaces are normal. The soft tissues are normal. IMPRESSION: 1. No acute osseous abnormality. Dictated by: Dictated on workstation # [id number]
== END 2023-01-06 04:45 | disposition home or self-care (01) ==
LOC: EDUNIT# 03:51 → ER 03:53
DX: M25.511 Pain in right shoulder (principal); E66.9 Obesity, unspecified; Z68.39 Body mass index [BMI] 39.0-39.9, adult
CPT/HCPCS: 73030

== ENCOUNTER 2023-02-27 16:30 | Emergency (ER) | payer MEDICAID ==
[~2023-02-27] VITALS: Ht 157 cm; Wt 97.0 kg
[~2023-02-27 16:30] MED LIST changes: +LIDO700A45 TP; +NAPR500T8 PO
[2023-02-27 17:39] LABS: BASOPHILS # (AUTO) 0.1 10^3/uL (0.0-0.1); BASOPHILS % (AUTO) 1 % (0-10); EOSINOPHILS # (AUTO) 0.5 10^3/uL (0.0-0.3); EOSINOPHILS % (AUTO) 6 % (0-10); HEMATOCRIT 40 % (35-52); HEMOGLOBIN 12.8 g/dL (11.5-16.0); LYMPHOCYTES # (AUTO) 2.6 10^3/uL (1.0-4.0); LYMPHOCYTES % (AUTO) 33 % (12-44); MEAN CORPUSCULAR HEMOGLOBIN 28 pg (25-34); MEAN CORPUSCULAR HGB CONC 32 g/dL (32-36); MEAN CORPUSCULAR VOLUME 86 fL (80-99); MEAN PLATELET VOLUME 9.3 fL (9.0-12.2); MONOCYTES # (AUTO) 0.5 10^3/uL (0.0-1.0); MONOCYTES % (AUTO) 7 % (0-12); NEUTROPHILS # (AUTO) 4.2 10^3/uL (1.8-7.8); NEUTROPHILS % (AUTO) 54 % (42-75); PLATELET COUNT 297 10^3/uL (130-400); WHITE BLOOD COUNT 7.9 10^3/uL (4.3-11.0)
[2023-02-27 17:48] LABS: ALBUMIN 3.8 GM/DL (3.2-4.5)
[2023-02-27 17:49] LABS: CHLORIDE 109 MMOL/L (98-107); SODIUM 138 MMOL/L (135-145)
[2023-02-27 17:50] LABS: CALCIUM 9.1 MG/DL (8.5-10.1)
[2023-02-27 17:51] LABS: GLUCOSE 87 MG/DL (70-105); TOTAL PROTEIN 7.9 GM/DL (6.4-8.2)
[2023-02-27 17:52] LABS: CARBON DIOXIDE 23 MMOL/L (21-32)
[2023-02-27 17:53] LABS: BILIRUBIN,TOTAL 0.2 MG/DL (0.1-1.0)
[2023-02-27 17:54] LABS: ALKALINE PHOSPHATASE 65 U/L (40-136); CREATININE SERUM 0.71 MG/DL (0.60-1.30); GFR ESTIMATED 104
[2023-02-27 17:55] LABS: BUN/CREATININE RATIO 10; PROTHROMBIN TIME PATIENT 13.5 SEC (12.2-14.7)
[2023-02-27 17:57] LABS: ALANINE AMINOTRANSFERASE 11 U/L (0-55); MAGNESIUM 2.3 MG/DL (1.6-2.4)
--- NOTE | 2023-02-27 17:58 | ED Cough/URI ---
General Chief Complaint: Cough/Cold/Flu Symptoms Stated Complaint: COUGH, DIZZINESS, DIARRHEA Nursing Triage Note: PT AMB TO TRIAGE WITH C/O COUGH X1 WEEK AND ITS WORSE AT NIGHT. PT STATES SHE HAS TRIED OTC MEDS WITHOUT RELIEF Source: patient Exam Limitations: no limitations (FLOR WATT APRN) History of Present Illness Date Seen by Provider: Feb 27, 2023 Time Seen by Provider: 16:52 Initial Comments 47-year-old female presents to the ER with complaint of a cough for the past week. States that her cough is worse at night. She reports that when her cough gets really bad, she becomes short of breath and dizzy. She states she also feels as though she has a rattle in her chest. She reports she started having chest pressure starting yesterday, states that it is constant since it started. Reports the pain in her chest is worse with coughing. Also complains of rib and bilateral lower abdominal pain when coughing. Reports having the chills. Reports nausea, no vomiting. (FLOR WATT APRN) Allergies and Home Medications Allergies Coded Allergies: No Known Drug Allergies (Unverified , 06/01/20) Patient Home Medication List Home Medication List Reviewed: Yes (FLOR WATT APRN) Benzonatate (Tessalon Perles) 100 Mg Capsule, 200 MG PO TID Prescribed by: Flor Jaramillo on 02/27/231835 Cyclobenzaprine HCl (Cyclobenzaprine HCl) 10 Mg Tablet, 10 MG PO Q8H PRN for SPASMS Prescribed by: TIFFANY FRANCIS on 01/06/23444 Lidocaine (Lidocaine 5% Patch) 5 % Adh..patch, 1 EACH TP Q12H PRN for Neuropathic pain Prescribed by: TIFFANY FRANCIS on 01/06/23444 Naproxen (Naproxen) 500 Mg Tablet.dr, 500 MG PO BID Prescribed by: TIFFANY FRANCIS on 01/06/23444 Review of Systems Review of Systems Constitutional: see HPI (FLOR WATT APRN) Past Zboxoyi-Smsxwz-Pssexu Hx Patient Social History Tobacco Use?: No Use of E-Cig and/or Vaping dev: No Substance use?: No Alcohol Use?: No Pt feels they are or have been: No (FLOR WATT APRN) Immunizations Up To Date Tetanus Booster (TDap): Unknown PED Vaccines UTD: Yes Influenza Vaccine Up-to-Date: No; Not Current First/Initial COVID19 Vaccinat: 2020 Second COVID19 Vaccination Marco: 2020 Third COVID19 Vaccination Date: 2020 (FLOR WATT APRN) Seasonal Allergies Seasonal Allergies: No (FLOR WATT APRN) Past Medical History Surgery/Hospitalization HX: C-SECTIONS X 4, LEFT KNEE ARTHROSCOPY X 2, RIGHT KNEE SCOPE X 1, GASTRIC SLEEVE--11/17/2016 "TUMMY TUCK" LEFT WRIST SURGERY RIGHT ELBOW SURGERY APPENDECTOMY--2003 CHOLECYSTECTOMY AND LEFT SALPINGO-OOPHORECTOMY 07/28/2016 HYSTERECTOMY---2003 BILATERAL TUBAL LIGATION 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 Sexually Transmitted Disease: No HIV/AIDS: No Genitourinary: Yes Kidney Infection, Bladder Infection, Kidney Stones, UTI-Chronic Gastrointestinal: Yes (S/P APPY, ROSALIO, GASTRIC SLEEVE, TUMMY TUCK) Chronic Diarrhea, Gall Bladder Disease, Irritable Bowel Musculoskeletal: Yes (BILAT KNEE SCOPES; L WRIST; R ELBOW) Arthritis Endocrine: Yes (OBESITY) Diabetes, Non-Insulin dep HEENT: No Loss of Vision: Bilateral Hearing Impairment: Denies Cancer: No Psychosocial: Yes Anxiety Integumentary: No (MULTIPLE TATTOOS) Blood Disorders: No Adverse Reaction/Blood Tranf: No (FLOR WATT APRN) Family Medical History No Pertinent Family Hx ADDIITIONAL SURGICAL/PROCEDURAL HISTORY: -LEFT KNEE ARTHROSCOPY 07/2015 AND 12/2015 -RIGHT KNEE ARTHROSCOPY - X 4 -HYSTERECTOMY 2003 -APPENDECTOMY 2003 -LEFT SALPINGO-OOPHORECTOMY AND CHOLECYSTECTOMY 07/28/2016 -GASTRIC SLEEVE 11/17/2016 -TUMMY TUCK -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 0oz. [id number]; 39.00 BMI Method:Stated General Appearance: WD/WN, no apparent distress Neck: supple, normal inspection Respiratory: lungs clear, normal breath sounds, no respiratory distress, no accessory muscle use Cardiovascular: regular rate, rhythm Extremities: normal range of motion, normal inspection 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: alert, normal mood/affect Skin: normal color, warm/dry (FLOR WATT APRN) Progress/Results/Core Measures Suspected Sepsis SIRS Temperature: Pulse: 74 Respiratory Rate: 18 Laboratory Tests 02/27/23 17:30: White Blood Count 7.9 Blood Pressure 113 /80 Mean: 91 Laboratory Tests 02/27/23 17:30: Creatinine 0.71, INR Comment 1.0, Platelet Count 297, Total Bilirubin 0.2 (FLOR WATT APRN) Results/Orders Lab Results Laboratory Tests Test 02/27/23 17:17 02/27/23 17:30 Range/Units Influenza Type A (RT-PCR) Not Detected Not Detecte Influenza Type B (RT-PCR) Not Detected Not Detecte SARS-CoV-2 RNA (RT-PCR) Not Detected Not Detecte White Blood Count 7.9 4.3-11.0 10^3/uL Red Blood Count 4.60 3.80-5.11 10^6/uL Hemoglobin 12.8 11.5-16.0 g/dL Hematocrit 40 35-52 % Mean Corpuscular Volume 86 80-99 fL Mean Corpuscular Hemoglobin 28 25-34 pg Mean Corpuscular Hemoglobin Concent 32 32-36 g/dL Red Cell Distribution Width 14.6 H 10.0-14.5 % Platelet Count 297 130-400 10^3/uL Mean Platelet Volume 9.3 9.0-12.2 fL Immature Granulocyte % (Auto) 0 % Neutrophils (%) (Auto) 54 42-75 % Lymphocytes (%) (Auto) 33 12-44 % Monocytes (%) (Auto) 7 0-12 % Eosinophils (%) (Auto) 6 0-10 % Basophils (%) (Auto) 1 0-10 % Neutrophils # (Auto) 4.2 1.8-7.8 10^3/uL Lymphocytes # (Auto) 2.6 1.0-4.0 10^3/uL Monocytes # (Auto) 0.5 0.0-1.0 10^3/uL Eosinophils # (Auto) 0.5 H 0.0-0.3 10^3/uL Basophils # (Auto) 0.1 0.0-0.1 10^3/uL Immature Granulocyte # (Auto) 0.0 0.0-0.1 10^3/uL Prothrombin Time 13.5 12.2-14.7 SEC INR Comment 1.0 0.8-1.4 Activated Partial Thromboplast Time 30 24-35 SEC Sodium Level 138 135-145 MMOL/L Potassium Level 4.0 3.6-5.0 MMOL/L Chloride Level 109 H 98-107 MMOL/L Carbon Dioxide Level 23 21-32 MMOL/L Anion Gap 6 5-14 MMOL/L Blood Urea Nitrogen 7 7-18 MG/DL Creatinine 0.71 0.60-1.30 MG/DL Estimat Glomerular Filtration Rate 104 BUN/Creatinine Ratio 10 Glucose Level 87 70-105 MG/DL Calcium Level 9.1 8.5-10.1 MG/DL Corrected Calcium 9.3 8.5-10.1 MG/DL Magnesium Level 2.3 1.6-2.4 MG/DL Total Bilirubin 0.2 0.1-1.0 MG/DL Aspartate Amino Transf (AST/SGOT) 15 5-34 U/L Alanine Aminotransferase (ALT/SGPT) 11 0-55 U/L Alkaline Phosphatase 65 40-136 U/L Troponin I < 0.028 <0.028 NG/ML B-Type Natriuretic Peptide 34.4 <100.0 PG/ML Total Protein 7.9 6.4-8.2 GM/DL Albumin 3.8 3.2-4.5 GM/DL (NINO WINKLER MD) Vital Signs/I&O 02/27/23 02/27/23 16:39 18:40 Temp 36.8 Pulse 74 74 Resp 18 B/P (MAP) 113/80 (91) 108/68 Pulse Ox 98 O2 Delivery Room Air (NINO WINKLER MD) Vital Signs/I&O Capillary Refill : (FLOR WATT APRN) Blood Pressure Mean: 91 Progress Note : Progress Note Patient seen and evaluated, resting comfortably in recliner, no acute distress. Based on exam and symptoms, cardiac workup initiated including CBC, CMP, troponin, magnesium, coags, BNP, chest ray, EKG. COVID and flu swabs ordered. 1835 Labs, EKG, chest x-ray reviewed. CBC grossly normal. CMP grossly normal. Troponin negative. Magnesium normal. BNP normal. Coags normal. COVID and flu negative. Chest x-ray shows no acute cardiopulmonary process. Results discussed with patient. Symptoms are likely related to an upper respiratory tract infection. I will prescribe Tessalon Perles for patient's cough. Patient instructed to sleep with a humidifier. Patient is stable for discharge. Discharge instructions and return precautions provided. (FLOR WATT APRN) ECG Initial ECG Impression Date: Feb 27, 2023 Initial ECG Impression Time: 18:29 Initial ECG Rate: 66 Initial ECG Rhythm: Normal Sinus Initial ECG Intervals: Normal Initial ECG Impression: Normal Initial ECG Comparisson: Unchanged (FLOR WATT APRN) Diagnostic Imaging Diagonstic Imaging: Xray Plain Films/CT/US/NM/MRI: chest Comments [facility], [place] NAME: FLAKO JEREZ [facility] REC#: [id number] PT STATUS: REG ER : 1975 PHYSICIAN: FLOR WATT APRN ADMIT DATE: 02/27/23/ER Draft Date of Exam:02/27/23 CHEST 1 VIEW, AP/PA ONLY INDICATION: Chest pain. EXAMINATION: Chest 02/27/2023 COMPARISON: 08/26/2022 FINDINGS: The cardiomediastinal silhouette is unremarkable. The pulmonary vasculature is within normal limits. The lungs and pleural spaces are clear. IMPRESSION: No evidence of an acute cardiopulmonary process. Dictated on workstation # [id number] Dict: 02/27/231754 Trans: 02/27/231755 [facility] [id number] Interpreted by: VIVIEN WRIGHT MD Electronically signed by: (FLOR WATT APRN) Departure Impression Primary Impression: Upper respiratory infection Additional Impression: Cough Disposition: 01 HOME, SELF-CARE Condition: Stable Departure-Patient Inst. Decision time for Depature: 18:35 (FLOR WATT APRN) Referrals: JAIRO KABA APRN (PCP/Family) Primary Care Physician Patient Instructions: Viral Upper Respiratory Infection, Adult (DC) Add. Discharge Instructions: Take the Tessalon Perles as needed for cough. Also try kkul-xzh-kxrwpru cough medications. Try drinking warm tea with honey to help soothe your cough. Sleep sitting up and use a humidifier with distilled water. Follow-up with your primary care provider if symptoms continue. Return for severe shortness of breath, severe chest pain, or any other new, concerning, or worsening symptoms. All discharge instructions reviewed with patient and/or family. Voiced understanding. Scripts Benzonatate (TESSALON PERLES) 100 Mg Capsule 200 MG PO TID, #20 CAP 0 Refills Prov: FLOR WATT APRN 02/27/23 ATTENDING PHYSICIAN NOTE: I was physically present as attending physician in the emergency department during the care of this patient, but I was not directly involved in the decision making or delivery of care for this patient. (NINO WINKLER MD) FLOR WATT APRN Feb 27, 2023 17:58 NINO WINKLER MD Feb 28, 2023 13:48
[2023-02-27] MEDS ORDERED: BENZ100C18 PO (18:36)
[2023-02-27 18:40] VITALS: BP 108/68
== END 2023-02-27 18:42 | disposition home or self-care (01) ==
LOC: EDUNIT# 16:30 → ER 16:32
DX: J06.9 Acute upper respiratory infection, unspecified (principal); E66.9 Obesity, unspecified; Z68.39 Body mass index [BMI] 39.0-39.9, adult
CPT/HCPCS: 36415; 71045; 80053; 83735; 83880; 84484; 85025; 85610; 85730; 87636; 93005; 93041